=== PATIENT | female | born 1945 | race African-American/Black ===

== ENCOUNTER 2018-04-29 14:36 | Emergency (ER) | payer OTHER ==
[2018-04-29 17:13] LABS: Absolute Lymphocytes (CBC) 1.3 K/uL (0.7-4.9); Absolute Monocytes 0.5 K/uL (0.1-1.3); Absolute Neutrophil 3.9 K/uL (1.8-8.0); Basophils % 0.4 % (0-1.3); Hematocrit 32.4 % (36.0-45.0); Lymphocytes % 23.1 % (15.3-44.8); MCH 31.1 pg (27.0-35.0); MCV 92.4 fL (80-100); MPV 9.5 fL (7.6-11.3); Monocytes % 7.9 % (3.3-12.3); RBC Red Blood Cell Count 3.51 M/uL (3.86-4.86)
[2018-04-29 17:33] LABS: Albumin 3.8 g/dL (3.4-5.0); Bilirubin Direct 0.1 mg/dL (0-0.2); Bilirubin Total 0.3 mg/dL (0.2-1.0); Potassium 4.4 mmol/L (3.5-5.1); Protein, Total 8.4 g/dL (6.4-8.2)
--- NOTE | 2018-04-29 17:50 | EKG ---
Test Date: 2018-04-29 Test Time: 15:22:32 Systems Spec: BEATRICE MEASUREMENT RESULTS: Intervals: Rate: 61 CO: 192 QRSD: 78 QT: 432 QTc: 434 [place]: P: 63 CO: 192 QRS: -5 T: 42 INTERPRETIVE STATEMENTS: Normal sinus rhythm Normal ECG Compared to ECG 10/12/2015 14:25:41 Left ventricular hypertrophy no longer present Electronically Signed On 04-29-18 17:50:22 CDT by Cuong De Guzman
--- NOTE | 2018-04-29 18:21 | EDPHYS ---
Physician Documentation [facility] Name: Kevin Chou Age: 73 yrs Sex: Female : 1945 Arrival Date: 04/29/2018 Time: 14:40 Bed 5 Private MD: Pierre Dunbar; Cristhian Barlow ED Physician Brett Lennon HPI: 04/29 15:40 This 73 yrs old Black Female presents to ER via EMS with complaints of Near Syncope, jr8 Diarrhea. 15:40 The patient has experienced syncope. Onset: The symptoms/episode began/occurred jr8 acutely, today. Duration: This was a single episode. Context: the episode(s) was witnessed, by a bystander, occurred at a store, occurred while the patient was standing. Associated injury: The patient did not suffer any apparent associated injury. Associated signs and symptoms: Pertinent positives: diarrhea. Current symptoms: Currently, the patient is not experiencing any symptoms, the patient feels back to baseline, no decreased level of consciousness, no confusion, no dysphasia, no headache, no paralysis, no visual changes. The patient has not experienced similar symptoms in the past. The patient has not recently seen a physician. Patient stated that she had finished dialysis and went to [place]. Stated that after walking around started to feel light headed and that she was going to have diarrhea. Passed out at that time. Was caught before hitting the ground. Denied chest pain, shortness of breath, vertigo, or palpitation feeling . Historical: - Allergies: 14:46 Percodan; sg - Home Meds: 14:46 amlodipine 10 mg tab 1 tab once daily [Active]; atenolol 50 mg Oral tab 1 tab once sg daily [Active]; lisinopril 40 mg Oral tab 1 tab once daily [Active]; trijenta 5mg 1 tab daily [Active]; Uloric 40 mg Oral tab 1 tab once daily [Active]; - PMHx: 14:46 Hypertension; kidney disease; sg - PSHx: 14:46 Lumpectomy; Hysterectomy; sg - Immunization history:: Adult Immunizations up to date. - Social history:: Smoking status: Patient/guardian denies using tobacco. - Ebola Screening: : Patient negative for fever greater than or equal to 101.5 degrees Fahrenheit, and additional compatible Ebola Virus Disease symptoms Patient denies exposure to infectious person Patient denies travel to an Ebola-affected area in the 21 days before illness onset No symptoms or risks identified at this time. ROS: 15:40 Eyes: Negative for injury, pain, redness, and discharge, ENT: Negative for injury, jr8 pain, and discharge, Neck: Negative for injury, pain, and swelling, Cardiovascular: Negative for chest pain, palpitations, and edema, Respiratory: Negative for shortness of breath, cough, wheezing, and pleuritic chest pain, Abdomen/GI: Negative for abdominal pain, nausea, vomiting, and constipation. Positive for diarrhea Back: Negative for injury and pain, MS/Extremity: Negative for injury and deformity, Skin: Negative for injury, rash, and discoloration. 15:40 Neuro: Positive for syncope, Negative for altered mental status, dizziness, gait disturbance, headache, hearing loss, loss of consciousness, numbness, seizure activity, speech changes, near syncope, tingling, tinnitus, tremor, visual changes, weakness. Exam: 15:40 Eyes: Pupils equal round and reactive to light, extra-ocular motions intact. Lids and jr8 lashes normal. Conjunctiva and sclera are non-icteric and not injected. Cornea within normal limits. Periorbital areas with no swelling, redness, or edema. ENT: Nares patent. No nasal discharge, no septal abnormalities noted. Tympanic membranes are normal and external auditory canals are clear. Oropharynx with no redness, swelling, or masses, exudates, or evidence of obstruction, uvula midline. Mucous membranes moist. Neck: Trachea midline, no thyromegaly or masses palpated, and no cervical lymphadenopathy. Supple, full range of motion without nuchal rigidity, or vertebral point tenderness. No Meningismus. Cardiovascular: Regular rate and rhythm with a normal S1 and S2. No gallops, murmurs, or rubs. Normal PMI, no JVD. No pulse deficits. Respiratory: Lungs have equal breath sounds bilaterally, clear to auscultation and percussion. No rales, rhonchi or wheezes noted. No increased work of breathing, no retractions or nasal flaring. Abdomen/GI: Soft, non-tender, with normal bowel sounds. No distension or tympany. No guarding or rebound. No evidence of tenderness throughout. Back: No spinal tenderness. No costovertebral tenderness. Full range of motion. Skin: Warm, dry with normal turgor. Normal color with no rashes, no lesions, and no evidence of cellulitis. MS/ Extremity: Pulses equal, no cyanosis. Neurovascular intact. Full, normal range of motion. Neuro: Awake and alert, GCS 15, oriented to person, place, time, and situation. Cranial nerves II-XII grossly intact. Motor strength 5/5 in all extremities. Sensory grossly intact. Cerebellar exam normal. Normal gait. Vital Signs: 14:44 BP 126 / 55; Pulse 64; Resp 17; Temp 97.7; Pulse Ox 98% on R/A; Pain 0/10; sg 15:10 BP 124 / 52 Sitting; Pulse 65; sg 15:17 BP 122 / 50 Standing; Pulse 68; sg 18:30 BP 126 / 52; Pulse 66 MON; Resp 17 S; Pulse Ox 98% on R/A; Pain 0/10; sg MDM: 15:06 Patient medically screened. 16:40 Data reviewed: vital signs, nurses notes, EKG. Data interpreted: Pulse oximetry: on room air is 98 %. Interpretation: normal. Counseling: I had a detailed discussion with the patient and/or guardian regarding: the historical points, exam findings, and any diagnostic results supporting the discharge/admit diagnosis, the need for outpatient follow up, a family practitioner, to return to the emergency department if symptoms worsen or persist or if there are any questions or concerns that arise at home. ED course: Delay in care because patient initially refused blood work. Talked her into letting us further assess her . 17:55 Data reviewed: lab test result(s). 04/29 15:07 Order name: Basic Metabolic Panel; Complete Time: 18:23 04/29 15:07 Order name: CBC with Diff; Complete Time: 17:22 04/29 15:07 Order name: LFT's; Complete Time: 18:23 04/29 15:07 Order name: Magnesium; Complete Time: 18:23 04/29 15:07 Order name: EKG; Complete Time: 15:09 04/29 15:07 Order name: Lipase; Complete Time: 18:23 04/29 15:07 Order name: Cardiac monitoring; Complete Time: 16:35 04/29 15:07 Order name: EKG - Nurse/Tech; Complete Time: 16:35 8 04/29 15:07 Order name: IV Saline Lock; Complete Time: 16:35 8 04/29 15:07 Order name: Labs collected and sent; Complete Time: 16:35 8 04/29 15:07 Order name: O2 Per Protocol; Complete Time: 16:36 8 04/29 15:07 Order name: O2 Sat Monitoring; Complete Time: 16:36 8 04/29 15:07 Order name: Orthostatics; Complete Time: 16:35 jr8 Administered Medications: No medications were administered Disposition: 04/30 07:04 Co-signature as Attending Physician, Brett Lennon MD I agree with the assessment and addie plan of care. Disposition: 04/29/18 18:21 Discharged to Home. Impression: Syncope and collapse. - Condition is Stable. - Discharge Instructions: Syncope. - Medication Reconciliation Form, Thank You Letter, Antibiotic Education, Prescription Opioid Use form. - Follow up: Cristhian Barlow MD; When: 1 - 2 days; Reason: Recheck today's complaints, Continuance of care, Re-evaluation by your physician. - Problem is new. - Symptoms have improved. Signatures: Dispatcher [employer] EDMS Deborah AnnieTera Maldonado RN RN sg Anderson, Corey, MD MD cha Roszak, Josh, PA PA jr8 Corrections: (The following items were deleted from the chart) 04/29 18:39 18:21 04/29/2018 18:21 Discharged to Home. Impression: Syncope and collapse. Condition bd is Stable. Forms are Medication Reconciliation Form, Thank You Letter, Antibiotic Education, Prescription Opioid Use. Follow up: Cristhian Barlow; When: 1 - 2 days; Reason: Recheck today's complaints, Continuance of care, Re-evaluation by your physician. Problem is new. Symptoms have improved. jr8
--- NOTE | 2018-04-29 18:21 | ER ---
Nurse's Notes [facility] Name: Kevin Chou Age: 73 yrs Sex: Female : 1945 Arrival Date: 04/29/2018 Time: 14:40 Bed 5 Private MD: Pierre Dunbar; Cristhian Barlow Diagnosis: Syncope and collapse Presentation: 04/29 14:40 Presenting complaint: EMS states: pt was at the store when she felt as if she was going sg to have diarrhea and became weak and began to fall down, the store clerk cashier was able to help her down to the ground slowly. pt denies pain, hitting his head, denies LOC, reports diarrhea starting today with weakness. pt was able to complete dialysis today at 1300 over at [facility], reports not taking her BP medications as she was not able to eat yet today. Transition of care: patient was not received from another setting of care. Onset of symptoms was April 29, 2018. Risk Assessment: Do you want to hurt yourself or someone else? Patient reports no desire to harm self or others. Initial Sepsis Screen: Does the patient meet any 2 criteria? No. Patient's initial sepsis screen is negative. Does the patient have a suspected source of infection? No. Patient's initial sepsis screen is negative. Care prior to arrival: None. 14:40 Method Of Arrival: EMS: [facility] 14:40 Acuity: GRETA 3 sg Historical: - Allergies: 14:46 Percodan; sg - Home Meds: 14:46 amlodipine 10 mg tab 1 tab once daily [Active]; atenolol 50 mg Oral tab 1 tab once sg daily [Active]; lisinopril 40 mg Oral tab 1 tab once daily [Active]; trijenta 5mg 1 tab daily [Active]; Uloric 40 mg Oral tab 1 tab once daily [Active]; - PMHx: 14:46 Hypertension; kidney disease; sg - PSHx: 14:46 Lumpectomy; Hysterectomy; sg - Immunization history:: Adult Immunizations up to date. - Social history:: Smoking status: Patient/guardian denies using tobacco. - Ebola Screening: : Patient negative for fever greater than or equal to 101.5 degrees Fahrenheit, and additional compatible Ebola Virus Disease symptoms Patient denies exposure to infectious person Patient denies travel to an Ebola-affected area in the 21 days before illness onset No symptoms or risks identified at this time. Screenin:47 Abuse screen: Denies threats or abuse. Denies injuries from another. Nutritional sg screening: No deficits noted. Tuberculosis screening: No symptoms or risk factors identified. Never had TB. Fall Risk None identified. Assessment: 14:47 General: Appears in no apparent distress. comfortable, well groomed, well developed, sg well nourished, Behavior is calm, cooperative, appropriate for age. Pain: Denies pain. Neuro: Level of Consciousness is awake, alert, obeys commands, Oriented to person, place, time, Laundry Aid are equal bilaterally Moves all extremities. Full function Gait is steady, Speech is normal, Facial symmetry appears normal, Pupils are PERRLA. Cardiovascular: Heart tones S1 S2 present Patient's skin is warm and dry. Chest pain is denied. Respiratory: Airway is patent Respiratory effort is even, unlabored, Respiratory pattern is regular, symmetrical, Breath sounds are clear. GI: No signs and/or symptoms were reported involving the gastrointestinal system. : No signs and/or symptoms were reported regarding the genitourinary system. EENT: No signs and/or symptoms were reported regarding the EENT system. Derm: Skin is intact, is healthy with good turgor, Skin is dry, Skin is normal, Skin temperature is warm. Musculoskeletal: No signs and/or symptoms reported regarding the musculoskeletal system. 15:50 Reassessment: pt refusing IV blood work at this time. sg 16:14 Reassessment: Patient appears in no apparent distress at this time. pt refusing IV sg blood draw at this time. Vital Signs: 14:44 BP 126 / 55; Pulse 64; Resp 17; Temp 97.7; Pulse Ox 98% on R/A; Pain 0/10; sg 15:10 BP 124 / 52 Sitting; Pulse 65; sg 15:17 BP 122 / 50 Standing; Pulse 68; sg 18:30 BP 126 / 52; Pulse 66 MON; Resp 17 S; Pulse Ox 98% on R/A; Pain 0/10; sg ED Course: 14:40 Patient arrived in ED. iw 14:43 Triage completed. sg 14:43 Arm band placed on. sg 14:44 Pierre Dunbar DO is Private Physician. sg 14:44 Cristhian Barolw MD is Private Physician. sg 14:47 No provider procedures requiring assistance completed. sg 14:50 Patient has correct armband on for positive identification. Bed in low position. Call sg light in reach. Pulse ox on. NIBP on. 15:06 Umair Bateman PA is PHCP. jr8 15:06 Brett Lennon MD is Attending Physician. jr8 15:06 Brett Lennon MD is Attending Physician. jr8 15:26 EKG done, by orthodontic technician. reviewed by Umair PERALES. 3 16:34 Tera Medina, RN is Primary Nurse. sg 18:21 Cristhian Barlow MD is Referral Physician. jr8 18:30 IV discontinued, intact, bleeding controlled, No redness/swelling at site. Pressure sg dressing applied. Administered Medications: No medications were administered Outcome: 18:21 Discharge ordered by MD. 8 18:30 Discharged to home ambulatory, with friend. sg 18:30 Condition: good 18:30 Discharge instructions given to patient, family, Instructed on discharge instructions, follow up and referral plans. medication usage, safety practices, Demonstrated understanding of instructions, follow-up care. 18:39 Patient left the ED. bd Signatures: Annie Cabrera Steven, ANYA RN Jennifer Niño RN RN Umair Bateman PA PA [facility]ilene [place] 3
== END 2018-04-29 18:39 | disposition home or self-care (01) ==
LOC: ER 14:36
DX: R55 Syncope and collapse (principal); N28.9 Disorder of kidney and ureter, unspecified; I10 Essential (primary) hypertension; Z88.5 Allergy status to narcotic agent; Z99.2 Dependence on renal dialysis
CPT/HCPCS: 36415; 80048; 80076; 83690; 83735; 85025; 93005; 99283

== ENCOUNTER 2019-12-13 06:30 | Observation (INO) | payer OTHER ==
[2019-12-13 06:59] LABS: Absolute Lymphocytes (CBC) 1.8 K/uL (0.7-4.9); Basophils % 0.8 % (0-1.3); Hematocrit 37.5 % (36.0-45.0); Lymphocytes % 23.9 % (15.3-44.8); MPV 9.3 fL (7.6-11.3); RBC Red Blood Cell Count 3.98 M/uL (3.86-4.86)
[2019-12-13 07:04] LABS: Protime INR 0.92
[2019-12-13 07:35] LABS: ALT/SGPT 29 U/L (12-78); AST/SGOT 27 U/L (15-37); Albumin 3.3 g/dL (3.4-5.0); Alkaline Phosphatase 64 U/L (45-117); BUN Blood Urea Nitrogen 80 mg/dL (7-18); Bicarbonate 23 mmol/L (21-32); Bilirubin Direct 0.1 mg/dL (0-0.2); Bilirubin Total 0.3 mg/dL (0.2-1.0); Glucose Level 148 mg/dL (74-106); Magnesium 2.2 mg/dL (1.8-2.4); NT PRO-BNP 11899 pg/mL (<125); Potassium 5.1 mmol/L (3.5-5.1); Protein, Total 7.9 g/dL (6.4-8.2); Sodium Level 141 mmol/L (136-145); Troponin (Emerg Dept Use Only) < 0.02 ng/mL (0.0-0.045)
--- NOTE | 2019-12-13 08:11 | ER ---
Nurse's Notes [facility] Name: Kevin Chou Age: 74 yrs Sex: Female : 1945 Arrival Date: 12/13/2019 Time: 06:31 Bed 5 Private MD: Diagnosis: Fluid overload, unspecified;Atelectasis;Hypoxemia Presentation: 12/12 06:41 Chief complaint: Patient states: i am scheduled to do my dialysis today but i cant do mg2 it because im short of breath. i am also coughing but no fever. Coronavirus screen: Patient reports a cough. Patient reports shortness of breath or difficulty breathing. Patient denies measured and/or subjective temperature greater than 100.4F prior to today's visit. Patient denies travel on a cruise ship or to a country the [facility] currently lists as an affected area. Patient denies contact with known and/or suspected case of COVID-19. Ebola Screen: No symptoms or risks identified at this time. Initial Sepsis Screen: Does the patient meet any 2 criteria?. Risk Assessment: Do you want to hurt yourself or someone else? Patient reports no desire to harm self or others. Onset of symptoms was December 13, 2019. 06:41 Method Of Arrival: Wheelchair mg2 06:41 Acuity: GRETA 2 mg2 07:03 Initial Sepsis Screen: Does the patient have a suspected source of infection? No. mg2 Patient's initial sepsis screen is negative. Triage Assessment: 07:11 General: Appears comfortable. Respiratory: Onset: The symptoms/episode began/occurred mg2 gradually, the patient has mild shortness of breath. Historical: - Allergies: 06:43 Percodan; mg2 - PMHx: 06:43 Hypertension; kidney disease; mg2 - PSHx: 06:43 Hysterectomy; Lumpectomy; kidney biopsy; mg2 - Immunization history:: Flu vaccine is not up to date. - Social history:: Smoking status: Patient denies any tobacco usage or history of. Patient/guardian denies using alcohol, street drugs, IV drugs. Screenin:53 Abuse screen: Denies threats or abuse. Denies injuries from another. Nutritional mg2 screening: No deficits noted. Tuberculosis screening: No symptoms or risk factors identified. Fall Risk IV access (20 points). Assessment: 07:01 General: Appears in no apparent distress. comfortable, Behavior is calm, cooperative. mg2 Pain: Denies pain. Neuro: Level of Consciousness is awake, alert, obeys commands, Oriented to person, place, time, situation. Cardiovascular: Capillary refill < 3 seconds Patient's skin is warm and dry. Rhythm is. Respiratory: Reports shortness of breath at rest cough that is Airway is patent Respiratory effort is even, unlabored, Respiratory pattern is regular, symmetrical, Breath sounds with crackles bilaterally. in right upper lobe and left upper lobe. GI: No signs and/or symptoms were reported involving the gastrointestinal system. : No signs and/or symptoms were reported regarding the genitourinary system. EENT: No signs and/or symptoms were reported regarding the EENT system. Derm: Skin is intact, is healthy with good turgor, Skin is pink, warm \T\ dry. normal. Musculoskeletal: Circulation, motion, and sensation intact. Capillary refill < 3 seconds. 08:34 Reassessment: Patient appears in no apparent distress at this time. Patient and/or ph family updated on plan of care and expected duration. Pain level reassessed. Patient is alert, oriented x 3, equal unlabored respirations, skin warm/dry/pink. Awaiting room assignment, VSS. Vital Signs: 06:41 BP 170 / 90; Pulse 98; Resp 25; Temp 97.8; Pulse Ox 85% on R/A; Weight 58.97 kg; Height mg2 4 ft. 11 in. (149.86 cm); 08:34 BP 169 / 83; Pulse 86; Resp 18; Pulse Ox 100% on 2 lpm NC; ph 09:40 BP 159 / 72; Pulse 84; Resp 16; Temp 97.4; Pulse Ox 98% on 2 lpm NC; ph 06:41 Body Mass Index 26.26 (58.97 kg, 149.86 cm) mg2 ED Course: 06:31 Patient arrived in ED. ds1 06:40 [facility]C [facility] snw 06:40 Shawn Rubio MD is Attending Physician. snw 06:40 Cameron Gonzalez RN is Primary Nurse. mg2 06:43 Triage completed. mg2 06:43 Arm band placed on. mg2 06:53 No provider procedures requiring assistance completed. Inserted saline lock: 20 gauge mg2 in right wrist, using aseptic technique. Blood collected. 07:02 Patient has correct armband on for positive identification. Door closed. Warm blanket mg2 given. 07:54 XRAY Chest (1 view) In Process Unspecified. EDMS 08:10 Ariel Morfin DO is Hospitalizing Provider. snw 10:47 Patient admitted, IV remains in place. Administered Medications: No medications were administered Outcome: 08:11 Decision to Hospitalize by Provider. snw 10:05 Admitted to Med/surg accompanied by tech, via stretcher, room 416, with oxygen. ph 10:05 Condition: stable 10:05 Instructed on the need for admit. 10:48 Patient left the ED. Signatures: Dispatcher [employer] EDHI Carrie Mc, NON DESTRUCTIVE TESTER-C NON DESTRUCTIVE TESTER-CsnRachel Morgan ds1 Salome Rosas, RN RN ph Cameron Gonzalez RN RN [facility] Marjorie Tovar RN RN Corrections: (The following items were deleted from the chart) 08:35 08:34 BP 169 / 83; Pulse 86bpm; Resp 18bpm; Pulse Ox 100% RA; ph ph
--- NOTE | 2019-12-13 08:11 | EDPHYS ---
Physician Documentation [facility] Name: Kevin Chou Age: 74 yrs Sex: Female : 1945 Arrival Date: 12/13/2019 Time: 06:31 Bed 5 Private MD: ED Physician Shawn Rubio HPI: 12/12 06:46 This 74 yrs old Black Female presents to ER via Wheelchair with complaints of Shortness snw Of Breath. 06:46 The patient has shortness of breath at rest. Onset: The symptoms/episode began/occurred snw suddenly. Duration: The symptoms are continuous, and are unchanged since they started. The patient's shortness of breath has no apparent modifying factors. Associated signs and symptoms: The patient has no apparent associated signs or symptoms. Severity of symptoms: At their worst the symptoms were moderate severe in the emergency department the symptoms improved markedly with O2. The patient has experienced a previous episode. It is unknown whether or not the patient has recently seen a physician. 06:47 Pt went for dialysis this am and they sent her to ED for c/o SOB. snw Historical: - Allergies: 06:43 Percodan; mg2 - PMHx: 06:43 Hypertension; kidney disease; mg2 - PSHx: 06:43 Hysterectomy; Lumpectomy; kidney biopsy; mg2 - Immunization history:: Flu vaccine is not up to date. - Social history:: Smoking status: Patient denies any tobacco usage or history of. Patient/guardian denies using alcohol, street drugs, IV drugs. ROS: 06:45 Constitutional: Negative for fever, chills, and weight loss, Eyes: Negative for injury, snw pain, redness, and discharge, ENT: Negative for injury, pain, and discharge, Neck: Negative for injury, pain, and swelling, Cardiovascular: Negative for chest pain, palpitations, and edema. 06:45 Abdomen/GI: Negative for abdominal pain, nausea, vomiting, diarrhea, and constipation, Back: Negative for injury and pain, : Negative for injury, bleeding, discharge, and swelling, MS/Extremity: Negative for injury and deformity, Skin: Negative for injury, rash, and discoloration, Neuro: Negative for headache, weakness, numbness, tingling, and seizure, Psych: Negative for depression, anxiety, suicide ideation, homicidal ideation, and hallucinations. 06:45 Respiratory: Positive for cough, shortness of breath, at rest. sneezing. Exam: 06:44 Head/Face: Normocephalic, atraumatic. Eyes: Pupils equal round and reactive to light, snw extra-ocular motions intact. Lids and lashes normal. Conjunctiva and sclera are non-icteric and not injected. Cornea within normal limits. Periorbital areas with no swelling, redness, or edema. ENT: Nares patent. No nasal discharge, no septal abnormalities noted. Tympanic membranes are normal and external auditory canals are clear. Oropharynx with no redness, swelling, or masses, exudates, or evidence of obstruction, uvula midline. Mucous membranes moist. Neck: Trachea midline, no thyromegaly or masses palpated, and no cervical lymphadenopathy. Supple, full range of motion without nuchal rigidity, or vertebral point tenderness. No Meningismus. Chest/axilla: Normal chest wall appearance and motion. Nontender with no deformity. No lesions are appreciated. Cardiovascular: Regular rate and rhythm with a normal S1 and S2. No gallops, murmurs, or rubs. Normal PMI, no JVD. No pulse deficits. 06:44 Abdomen/GI: Soft, non-tender, with normal bowel sounds. No distension or tympany. No guarding or rebound. No evidence of tenderness throughout. Back: No spinal tenderness. No costovertebral tenderness. Full range of motion. Skin: Warm, dry with normal turgor. Normal color with no rashes, no lesions, and no evidence of cellulitis. MS/ Extremity: Pulses equal, no cyanosis. Neurovascular intact. Full, normal range of motion. Neuro: Awake and alert, GCS 15, oriented to person, place, time, and situation. Cranial nerves II-XII grossly intact. Motor strength 5/5 in all extremities. Sensory grossly intact. Cerebellar exam normal. Normal gait. 06:44 Constitutional: The patient appears alert, awake, anxious. 06:44 Respiratory: mild respiratory distress is noted, Respirations: accessory muscle usage, shallow respirations, tachypnea, that is moderate, positioning for optimal ease of breathing, not quite tripod position. Vital Signs: 06:41 BP 170 / 90; Pulse 98; Resp 25; Temp 97.8; Pulse Ox 85% on R/A; Weight 58.97 kg; Height mg2 4 ft. 11 in. (149.86 cm); 08:34 BP 169 / 83; Pulse 86; Resp 18; Pulse Ox 100% on 2 lpm NC; ph 09:40 BP 159 / 72; Pulse 84; Resp 16; Temp 97.4; Pulse Ox 98% on 2 lpm NC; ph 06:41 Body Mass Index 26.26 (58.97 kg, 149.86 cm) mg2 MDM: 06:40 Patient medically screened. snw 08:08 Data reviewed: vital signs, nurses notes. Data interpreted: Pulse oximetry: on room air snw is 85 %. Interpretation: hypoxia. Plan: O2 by NC applied. Counseling: I had a detailed discussion with the patient and/or guardian regarding: the historical points, exam findings, and any diagnostic results supporting the discharge/admit diagnosis, the presence of at least one elevated blood pressure reading (>120/80) during this emergency department visit, lab results, radiology results, the need for further work-up and treatment in the hospital. Physician consultation: Ariel Morfin DO was called at 08:09, was contacted at 08:09, regarding admission, to the telemetry unit. 12/12 06:38 Order name: Basic Metabolic Panel; Complete Time: 07:37 12/12 06:38 Order name: CBC with Diff; Complete Time: 07:25 12/12 06:38 Order name: LFT's; Complete Time: 07:37 12/12 06:38 Order name: Magnesium; Complete Time: 07:37 12/12 06:38 Order name: NT PRO-BNP; Complete Time: 07:37 12/12 06:38 Order name: PT-INR; Complete Time: 07:25 12/12 06:38 Order name: Troponin (emerg Dept Use Only); Complete Time: 07:37 12/12 06:38 Order name: XRAY Chest (1 view); Complete Time: 09:02 12/12 06:38 Order name: EKG; Complete Time: 06:39 12/12 06:38 Order name: Cardiac monitoring; Complete Time: 06:52 12/12 06:38 Order name: EKG - Nurse/Tech; Complete Time: 06:53 12/12 07:52 Order name: COVID-19; Complete Time: 08:51 ph 12/12 07:52 Order name: Flu; Complete Time: 08:43 ph 12/12 10:07 Order name: Hemoglobin A1c; Complete Time: 10:11 EDMS 12/12 06:38 Order name: IV Saline Lock; Complete Time: 06:52 tw4 12/12 06:38 Order name: Labs collected and sent; Complete Time: 06:52 tw4 12/12 06:38 Order name: O2 Per Protocol; Complete Time: 06:52 tw4 12/12 06:38 Order name: O2 Sat Monitoring; Complete Time: 06:52 tw4 12/12 08:03 Order name: Droplet/Contact Precautions; Complete Time: 08:34 snw Administered Medications: No medications were administered Disposition: 12/13 10:01 Co-signature as Attending Physician, Shawn Rubio MD I agree with the assessment and 4 plan of care. Disposition: 12/13/19 08:11 Hospitalization ordered by Ariel Morfin for Observation. Preliminary diagnosis are Fluid overload, unspecified, Atelectasis, Hypoxemia. - Bed requested for Telemetry/MedSurg (Inpatient). - Status is Observation. ah - Condition is Stable. - Problem is an acute exacerbation. - Symptoms are unchanged. Signatures: Dispatcher [employer] [facility] Annie Cabrera Shelly, FLY FRAME TENDER-C FLY FRAME TENDER-Csnw Esau Kirk MD MD rn Wadley, Terrence, MD MD [facility] Cameron Gonzalez RN RN [facility] [place] [place] Marjorie Tovar RN RN Corrections: (The following items were deleted from the chart) 12/12 09:32 08:11 Hospitalization Ordered by Ariel Morfin DO for Observation. Preliminary bd diagnosis is Fluid overload, unspecified; Atelectasis; Hypoxemia. Bed requested for Telemetry/MedSurg (Inpatient). Status is Observation. Condition is Stable. Problem is an acute exacerbation. Symptoms are unchanged. snw 10:48 09:32 12/13/2019 08:11 Hospitalization Ordered by Ariel Morfin DO for Observation. Preliminary diagnosis is Fluid overload, unspecified; Atelectasis; Hypoxemia. Bed requested for Telemetry/MedSurg (Inpatient). Status is Observation. Condition is Stable. Problem is an acute exacerbation. Symptoms are unchanged. bd
--- NOTE | 2019-12-13 08:52 | RAD REPORT ---
EXAM DESCRIPTION: RAD - Chest Single View - 12/13/2019 7:54 am CLINICAL HISTORY: SOB, pending dialysis COMPARISON: Portable July 2017 TECHNIQUE: AP portable chest image was obtained 12/13/2019 7:54 am . FINDINGS: Lung volumes are reduced. Airspace opacification is present in the inferior right lobe mor e peripherally distributed. This is abutting the minor fissure. Additional airspace opacification pre sent in the right lung base. Peripheral airspace opacities are present in the mid and lower left lung field. No pulmonary vascular engorgement. Heart size is normal. Trachea is midline. Dialysis catheter has b een removed since prior imaging. No measurable pleural effusion and no pneumothorax. No acute bony ab normality seen. No acute aortic findings suspected. IMPRESSION: Bilateral peripheral airspace opacification. Pattern is a bilateral pneumonia pattern rather than simple volume overload. Pattern can be seen with COVID-19 pneumonia as well as other non COVID pneumonias.
[2019-12-13] MEDS ORDERED: ONDANSETRON 4 MG/2 ML VIAL IV PRN (09:14)
[2019-12-13] MEDS ORDERED: ACETAMINOPHEN 500 MG TAB PO PRN (09:14)
[2019-12-13] MEDS ORDERED: FUROSEMIDE 40 MG/4 ML VIAL IV ONE (09:14)
--- NOTE | 2019-12-13 09:42 | P.HP ---
Certification for Inpatient Patient admitted to: Observation With expected LOS: <2 Midnights Patient will require the following post-hospital care: None Practitioner: I am a practitioner with admitting privileges, knowledge of patient current condition, hospital course, and medical plan of care. Services: Services provided to patient in accordance with Admission requirements found in Title 42 Section 412.3 of the Code of Federal Regulations <Asif Trotter - Last Filed: 12/13/19 09:47> Patient History Date of Service: 12/13/19 Primary Care Provider: Dr. Barlow, Nephrology- Dr. Dunbar Reason for admission: Dyspnea, Volume overload, R/O COVID History of Present Illness: 74 year old female with history of ESRD, DMII, HTN, presented to the ED after going to her scheduled dialysis appointment and being sent to the ED as the staff was concerned that she was more SOB than normal for her. Patient was evaluated in the emergency department and informed the staff that she has been feeling SOB with ROYAL since last night that was worse this morning. Pt reports that this is new for her. Her chest x-ray showed a bilateral infiltrate pattern which the radiologist favored over volume overload. Patient was swabbed for COVID due to her presentation and clinical exam findings. It was also reported by ED staff that the patient was desatting on room air as low as the mid to high 80s. Patient was placed on 2L per NC and is tolerating this well with normal sats. When I saw the patient in the ED she was on 02 at 2L per NC, in no respiratory distress, able to speak in full sentences. Reports to me that she has been feeling more short of breath on exertion since last night and especially this morning. Patient appears stable on oxygen, does not report any fever, chills, or other signs of systemic illness. She has not missed any dialysis and is taking her medications as prescribed. Home medications list reviewed: Yes - Past Medical/Surgical History Diabetic: Yes -: hypertension -: diabetes -: gout -: hysterectomy -: lumpectomy -: cataract surgery Psychosocial/ Personal History: Patient lives at home and is . - Family History Family History: Reviewed- Non-Contributory - Social History Smoking Status: Never smoker Alcohol use: No CD- Drugs: No Caffeine use: Yes Place of Residence: Home <Asif Trotter - Last Filed: 12/13/19 09:47> Date of Service: 12/13/19 <Ariel Morfin - Last Filed: 12/13/19 15:53> Allergies aspirin [From Percodan] Adverse Reaction (Verified 04/22/16 09:44) Rash oxycodone [From Percodan] Adverse Reaction (Verified 04/22/16 09:44) Rash Home Medications: Amlodipine [Norvasc*] 10 mg PO DAILY #30 tab 08/11/17 Pantoprazole [Protonix Tab*] 40 mg PO DAILYAC #60 tab 08/11/17 Brimonidine Tartrate/Timolol [Combigan 0.2%-0.5% Eye Drops] 1 drop EACH EYE BID 12/13/19 Calcium Acetate [Phoslo*] 1 tab PO SEECOM 12/13/19 Doxazosin [Cardura*] 1 tab PO BID 12/13/19 Metoprolol Succinate [Toprol Xl] 1 tab PO DAILY 12/13/19 Review of Systems General: Unremarkable Eyes: Unremarkable ENT: Unremarkable Respiratory: Cough, Shortness of Breath, SOB with Excertion Cardiovascular: Unremarkable Gastrointestinal: Unremarkable Genitourinary: Unremarkable Musculoskeletal: Unremarkable Neurological: Unremarkable Lymphatics: Unremarkable <Asif Trotter - Last Filed: 12/13/19 09:47> Physical Examination - Physical Exam General: Alert, In no apparent distress, Oriented x3 HEENT: Atraumatic, Normocephalic Neck: Supple Respiratory: Crackles/rales Cardiovascular: No edema, Regular rate/rhythm Capillary refill: <2 Seconds Gastrointestinal: Normal bowel sounds, Soft and benign Musculoskeletal: No clubbing, No erythema, No tenderness Integumentary: No significant lesion, No tenderness/swelling Neurological: Normal speech, Normal strength at 5/5 x4 extr, Normal tone - Studies Laboratory Data (last 24 hrs) 12/13/19 06:50: PT 10.9, INR 0.92 12/13/19 06:50: WBC 7.6, Hgb 12.3, Hct 37.5, Plt Count 188 12/13/19 06:50: Sodium 141, Potassium 5.1, BUN 80 H, Creatinine 11.90 H*, Glucose 148 H, Magnesium 2.2, Total Bilirubin 0.3, AST 27, ALT 29, Alkaline Phosphatase 64 Microbiology Data (last 24 hrs): 12/13/19 07:50 Nasopharnyx Coronavirus COVID-19 PCR - Final 12/13/19 07:50 Nasopharnyx Influenza Type A Antigen Screen - Final 12/13/19 07:50 Nasopharnyx Influenza Type B Antigen Screen - Final <Asfi Trotter - Last Filed: 12/13/19 09:47> - Physical Exam Other Physical/Emotional Findings: Agree with examination and evaluation. - Studies Laboratory Data (last 24 hrs) 12/13/19 06:50: PT 10.9, INR 0.92 12/13/19 06:50: WBC 7.6, Hgb 12.3, Hct 37.5, Plt Count 188 12/13/19 06:50: Sodium 141, Potassium 5.1, BUN 80 H, Creatinine 11.90 H*, Glucose 148 H, Magnesium 2.2, Total Bilirubin 0.3, AST 27, ALT 29, Alkaline Phosphatase 64 Microbiology Data (last 24 hrs): 12/13/19 07:50 Nasopharnyx Coronavirus COVID-19 PCR - Final 12/13/19 07:50 Nasopharnyx Influenza Type A Antigen Screen - Final 12/13/19 07:50 Nasopharnyx Influenza Type B Antigen Screen - Final <Ariel Morfin - Last Filed: 12/13/19 15:53> Assessment and Plan - Plan Assessment Dyspnea Volume overload/bilateral infiltrate pattern- Hypertension- hospitalization. Diabetes mellitus type II Plan Volume overload/bilateral infiltrate pattern-patient was swabbed for oliva virus. If negative the patient will be admitted to the floor and nephrology will be consulted to arrange for the patient to receive dialysis. Will await results from blood and sputum cultures at this time a diagnosis of volume overload is favored clinically as the patient has no elevation in her white blood cell count denies fever or chills. Chest x-ray will be repeated in the morning after the patient receives dialysis to evaluate volume status and the bilateral infiltrate that were observed on the previous x-ray per radiology. End-stage renal disease. Anticipate patient will improve clinically in the next 24-48 hr at which time she can be discharged home. DVT prophylaxis with heparin subcu b.i.d. and will obtain echocardiogram to evaluate for CHF. End-stage renal disease-nephrology will be consulted. With the patient has been cleared for oliva virus we will arrange for dialysis. Hypertension-home medications will be obtained in verified. Will continue home medications and monitor blood pressure throughout the hospitalization. Diabetes mellitus type II- blood sugars were monitored throughout the hospitalization. Will obtain A1c in the morning and place patient on a mild sliding scale. Discharge Plan: Home Plan to discharge in: 48 Hours - Advance Directives Does patient have a Living Will: No Does patient have a Durable POA for Healthcare: No - Code Status/Comfort Care Code Status Assessed: Yes (Pt is full code) Time Spent Managing Pts Care (In Minutes): 55 <Asif Trotter - Last Filed: 12/13/19 09:47> - Plan Impression: Shortness of breath with hypoxia and noted pulmonary edema likely related to end-stage renal disease End-stage renal disease on hemodialysis Diabetes mellitus type 2 Hypertension Plan: Case discussed at length with nurse practitioner-Asif Trotter. Agree with assessment, evaluation and plan of care. Patient will require evaluation for COVID19. I doubt this. Shortness of breath likely related to pulmonary edema from volume overload. Will need to evaluate for underlying CHF likely diastolic in nature. Echocardiogram ordered. Continue 1500 cc per day fluid restriction. Case discussed at length with nephrology. Patient will receive dialysis after negative coated test. Continue home medications. Continue as above. <Ariel Morfin - Last Filed: 12/13/19 15:53>
[2019-12-13 10:47] VITALS: BMI 29.2
[2019-12-13] MEDS: AMLODIPINE 5 MG TAB PO SCH (11:09)
[2019-12-13] MEDS: INSULIN -REGULAR HUMAN 50 UNIT/0.5 ML ML SQ SCH ×3 (11:17→21:00)
[2019-12-13] MEDS: METOPROLOL TAR 25 MG TAB PO SCH (16:00)
--- NOTE | 2019-12-13 16:23 | EKG ---
Test Date: 2019-12-13 Test Time: 07:01:15 Jd Edwards Consultant: MODE MEASUREMENT RESULTS: Intervals: Rate: 88 MN: 194 QRSD: 62 QT: 372 QTc: 450 [place]: P: 61 MN: 194 QRS: -9 T: 38 INTERPRETIVE STATEMENTS: Normal sinus rhythm Normal ECG Compared to ECG 04/29/2018 15:22:32 No significant changes Electronically Signed On 12-13-19 16:22:11 CDT by Cuong De Guzman
[2019-12-13] MEDS ORDERED: NA CHLORIDE 0.9% 1,000 ML IV PRN (17:17)
[2019-12-13] MEDS ORDERED: MANNITOL 25% 12.5 GM/50 ML VIAL IV PRN (17:17)
--- NOTE | 2019-12-13 17:43 | P.CNS ---
Date of Consult: 12/13/19 Reason for Consult: ESRD Requesting Physician: Ariel Morfin Primary Care Provider: Dr. Barlow, Nephrology- Dr. Dunbar Chief Complaint: Dyspnea, Volume overload, R/O COVID History of Present Illness: 74 yo BF CKD presented to the ER with moderate, progressive dyspnea with associated cough that is worse with exertion. No modifying fx. No edema. +Hypoxia 74 year old female with history of ESRD, DMII, HTN, presented to the ED after going to her scheduled dialysis appointment and being sent to the ED as the staff was concerned that she was more SOB than normal for her. Patient was evaluated in the emergency department and informed the staff that she has been feeling SOB with ROYAL since last night that was worse this morning. Pt reports that this is new for her. Her chest x-ray showed a bilateral infiltrate pattern which the radiologist favored over volume overload. Patient was swabbed for COVID due to her presentation and clinical exam findings. It was also reported by ED staff that the patient was desatting on room air as low as the mid to high 80s. Patient was placed on 2L per NC and is tolerating this well with normal sats. 06:46 This 74 yrs old Black Female presents to ER via Wheelchair with complaints of Shortness snw Of Breath. 06:46 The patient has shortness of breath at rest. Onset: The symptoms/episode began/occurred snw suddenly. Duration: The symptoms are continuous, and are unchanged since they started. The patient's shortness of breath has no apparent modifying factors. Associated signs and symptoms: The patient has no apparent associated signs or symptoms. Severity of symptoms: At their worst the symptoms were moderate severe in the emergency department the symptoms improved markedly with O2. The patient has experienced a previous episode. It is unknown whether or not the patient has recently seen a physician. Allergies aspirin [From Percodan] Adverse Reaction (Verified 04/22/16 09:44) Rash oxycodone [From Percodan] Adverse Reaction (Verified 04/22/16 09:44) Rash Home medications list reviewed: Yes Home Medications: Amlodipine [Norvasc*] 10 mg PO DAILY #30 tab 08/11/17 Pantoprazole [Protonix Tab*] 40 mg PO DAILYAC #60 tab 08/11/17 Brimonidine Tartrate/Timolol [Combigan 0.2%-0.5% Eye Drops] 1 drop EACH EYE BID 12/13/19 Calcium Acetate [Phoslo*] 1 tab PO SEECOM 12/13/19 Doxazosin [Cardura*] 1 tab PO BID 12/13/19 Metoprolol Succinate [Toprol Xl] 1 tab PO DAILY 12/13/19 - Past Medical/Surgical History Diabetic: Yes -: hypertension -: diabetes -: gout -: dialysis -: hysterectomy -: lumpectomy -: cataract surgery Psychosocial/ Personal History: Patient lives at home and is . - Social History Alcohol use: No CD- Drugs: No Caffeine use: Yes Place of Residence: Home Review of Systems 10-point ROS is otherwise unremarkable Respiratory: Cough, SOB with Excertion Physical Examination Temp Pulse Resp BP Pulse Ox 98.6 F 84 18 154/73 H 96 12/13/19 15:49 12/13/19 16:00 12/13/19 15:49 12/13/19 16:00 12/13/19 15:49 General: Oriented x3, Cooperative HEENT: Normocephalic Neck: Supple Respiratory: Normal air movement, Crackles/rales Cardiovascular: No edema, Regular rate/rhythm Gastrointestinal: Soft and benign, Non-distended Musculoskeletal: No clubbing, No contractures Integumentary: No rashes, No cyanosis Neurological: Normal speech Laboratory Data (last 24 hrs) 12/13/19 06:50: PT 10.9, INR 0.92 12/13/19 06:50: WBC 7.6, Hgb 12.3, Hct 37.5, Plt Count 188 12/13/19 06:50: Sodium 141, Potassium 5.1, BUN 80 H, Creatinine 11.90 H*, Glucose 148 H, Magnesium 2.2, Total Bilirubin 0.3, AST 27, ALT 29, Alkaline Phosphatase 64 Imagings Data: EXAM DESCRIPTION: RAD - Chest Single View - 12/13/2019 7:54 am CLINICAL HISTORY: SOB, pending dialysis COMPARISON: Portable July 2017 TECHNIQUE: AP portable chest image was obtained 12/13/2019 7:54 am . FINDINGS: Lung volumes are reduced. Airspace opacification is present in the inferior right lobe more peripherally distributed. This is abutting the minor fissure. Additional airspace opacification present in the right lung base. Peripheral airspace opacities are present in the mid and lower left lung field. No pulmonary vascular engorgement. Heart size is normal. Trachea is midline. Dialysis catheter has been removed since prior imaging. No measurable pleural effusion and no pneumothorax. No acute bony abnormality seen. No acute aortic findings suspected. IMPRESSION: Bilateral peripheral airspace opacification. Pattern is a bilateral pneumonia pattern rather than simple volume overload. Pattern can be seen with COVID-19 pneumonia as well as other non COVID pneumonias. Conclusions/Impression: A/ ESRD on HD. Diastolic CHF, A/C. Hypoxia. HTN with CKD/ CHF. DM II with CKD. Primary gout. Anemia in CKD. CHRISTOPH/ Secondary HyperPTH. BL PNA? P/ Continue current POC and medications. Arrange for acute HD today. Restart home medications as indicated. Monitor for possible PNA. No NSAIDs. AM labs. Daily weight. Thank you kindly for the consultation.
[2019-12-13] MEDS ORDERED: ALBUMIN HUMAN 25% 50 ML IV SCH (18:00)
[2019-12-13] MEDS: HEPARIN 5000 UNIT/ML 1 ML VIAL SQ SCH (21:56)
[2019-12-14] MEDS: METOPROLOL TAR 25 MG TAB PO SCH ×2 (05:37→17:13)
[2019-12-14 06:07] LABS: Absolute Lymphocytes (CBC) 1.8 K/uL (0.7-4.9); Basophils % 0.8 % (0-1.3); Hematocrit 34.8 % (36.0-45.0); Lymphocytes % 23.8 % (15.3-44.8); MPV 8.9 fL (7.6-11.3); RBC Red Blood Cell Count 3.67 M/uL (3.86-4.86)
[2019-12-14 06:37] LABS: Magnesium 2.1 mg/dL (1.8-2.4); Phosphorus 4.4 mg/dL (2.5-4.9); Thyroid Stimulating Hormone 0.912 uIU/mL (0.360-3.740); Uric Acid 3.1 mg/dL (2.6-6.0)
--- NOTE | 2019-12-14 07:19 | RAD REPORT ---
EXAM DESCRIPTION: [place] Pa And Lat (2 Views)12/14/2019 6:49 am CLINICAL HISTORY: Shortness of breath COMPARISON: December 13, 2019 FINDINGS: Moderate improvement in left lung opacities. Mild to moderate improvement in right lung opacities Mild improvement in a right upper lobe consolidation Heart remains enlarged IMPRESSION: Given the rapid improvement in bilateral pulmonary opacities the patient may have pulmon naman edema superimposed over a right upper lobe pneumonia
[2019-12-14] MEDS: INSULIN -REGULAR HUMAN 50 UNIT/0.5 ML ML SQ SCH ×3 (07:30→16:30)
[2019-12-14] MEDS: AMLODIPINE 5 MG TAB PO SCH (09:21)
[2019-12-14] MEDS: HEPARIN 5000 UNIT/ML 1 ML VIAL SQ SCH (09:21)
[2019-12-14] MEDS ORDERED: LIDOCAINE/PRILOCAINE CREAM TOP SCH (12:00)
[2019-12-14 16:06] VITALS: BP 131/57; TEMP 97.7
--- NOTE | 2019-12-14 16:45 | P.DS ---
Admission Date: 12/13/19 Discharge Date: 12/14/19 Primary Care Provider: Dr. Barlow, Nephrology- Dr. Dunbar Disposition: ROUTINE DISCHARGE Discharge Condition: GOOD Reason for Admission: Dyspnea, Volume overload, R/O COVID Consultations: Nephrology-Dr. Dunbar Procedures: Medical problem list: Dyspnea secondary to volume overload likely underlying related acute on chronic diastolic CHF with end-stage renal disease End-stage renal disease on hemodialysis Hypertension Diabetes mellitus type II Brief History of Present Illness: 74-year-old female with history of end-stage renal disease, diabetes and hypertension. Patient presented with shortness of breath. Chest x-ray revealed pulmonary edema. Patient was admitted for further evaluation and treatment. Hospital Course: Patient presented with dyspnea secondary to volume overload likely related to acute on chronic diastolic CHF with end-stage renal disease on hemodialysis. During the course of her stay patient improved with diuresis and dialysis. Oxygen was weaned off. At discharge patient without significant shortness of breath. Chest x-ray shows improvement. Pro calcitonin negative. White count negative. Doubt infectious process. At discharge she will continue with a 1500 cc per day fluid restriction and low-salt diet. Patient will continue with Lasix 40 mg daily. At discharge she will continue with dialysis as directed. Recommend to monitor her weight daily. If her weight increases by more than 5 lb she is to contact nephrology for further recommendation. Patient with hypertension. This has remained stable. Patient continue with her medication. Patient with diabetes mellitus type 2. This has remained stable. Patient will continue with her medications. Vital Signs/Physical Exam: Temp Pulse Resp BP Pulse Ox 97.7 F 84 17 131/57 L 98 12/14/19 16:00 12/14/19 16:00 12/14/19 16:00 12/14/19 16:00 12/14/19 16:00 General: Alert, In no apparent distress, Oriented x3, Cooperative HEENT: Atraumatic Neck: Supple Respiratory: Clear to auscultation bilaterally Cardiovascular: Normal pulses, Regular rate/rhythm Gastrointestinal: Normal bowel sounds, No masses, No rebound, No guarding Musculoskeletal: No tenderness, No warmth Integumentary: No erythema, No warmth, No cyanosis Neurological: Normal speech, Normal strength at 5/5 x4 extr, Normal tone, Normal affect Other Physical/Emotional Findings: Agree with examination and evaluation. Laboratory Data at Discharge: WBC 7.4 K/uL (4.3-10.9) 12/14/19 05:22 Hgb 11.4 g/dL (12.0-15.0) L 12/14/19 05:22 Hct 34.8 % (36.0-45.0) L 12/14/19 05:22 Plt Count 182 K/uL (152-406) 12/14/19 05:22 PT 10.9 SECONDS (9.5-12.5) 12/13/19 06:50 INR 0.92 12/13/19 06:50 Sodium 139 mmol/L (136-145) 12/14/19 05:22 Potassium 4.0 mmol/L (3.5-5.1) 12/14/19 05:22 BUN 36 mg/dL (7-18) H D 12/14/19 05:22 Creatinine 7.49 mg/dL (0.55-1.3) H* D 12/14/19 05:22 Glucose 103 mg/dL (74-106) 12/14/19 05:22 Uric Acid 3.1 mg/dL (2.6-6.0) 12/14/19 05:22 Phosphorus 4.4 mg/dL (2.5-4.9) 12/14/19 05:22 Magnesium 2.1 mg/dL (1.8-2.4) 12/14/19 05:22 Total Bilirubin 0.3 mg/dL (0.2-1.0) 12/13/19 06:50 AST 27 U/L (15-37) 12/13/19 06:50 ALT 29 U/L (12-78) 12/13/19 06:50 Alkaline Phosphatase 64 U/L (45-117) 12/13/19 06:50 Home Medications: Amlodipine [Norvasc*] 10 mg PO DAILY #30 tab 08/11/17 Pantoprazole [Protonix Tab*] 40 mg PO DAILYAC #60 tab 08/11/17 Brimonidine Tartrate/Timolol [Combigan 0.2%-0.5% Eye Drops] 1 drop EACH EYE BID 12/13/19 Calcium Acetate [Phoslo*] 1 tab PO SEECOM 12/13/19 Doxazosin [Cardura*] 1 tab PO BID 12/13/19 Metoprolol Succinate [Toprol Xl] 1 tab PO DAILY 12/13/19 Furosemide [Lasix] 40 mg PO DAILY #30 tab 12/14/19 New Medications: Furosemide [Lasix] 40 mg PO DAILY #30 tab Patient Discharge Instructions: Patient presented with dyspnea secondary to volume overload likely related to acute on chronic diastolic CHF with end-stage renal disease on hemodialysis. During the course of her stay patient improved with diuresis and dialysis. Oxygen was weaned off. At discharge patient without significant shortness of breath. Chest x-ray shows improvement. Pro calcitonin negative. White count negative. Doubt infectious process. At discharge she will continue with a 1500 cc per day fluid restriction and low- salt diet. Patient will continue with Lasix 40 mg daily. At discharge she will continue with dialysis as directed. Recommend to monitor her weight daily. If her weight increases by more than 5 lb she is to contact nephrology for further recommendation. Patient with hypertension. This has remained stable. Patient continue with her medication. Patient with diabetes mellitus type 2. This has remained stable. Patient will continue with her medications. Diet: Renal Activity: Ad nathalie Time spent managing pt's care (in minutes): 55
[2019-12-14 16:47] VITALS: O2SAT 98
--- NOTE | 2019-12-14 21:03 | P.PN ---
Date of Service: 12/14/19 Vital Signs Temp Pulse Resp BP Pulse Ox 97.7 F 83 17 131/57 L 98 12/14/19 16:00 12/14/19 17:13 12/14/19 16:00 12/14/19 17:13 12/14/19 16:00 Microbiology Results 12/13/19 07:50 Nasopharnyx Coronavirus COVID-19 PCR - Final 12/13/19 07:50 Nasopharnyx Influenza Type A Antigen Screen - Final 12/13/19 07:50 Nasopharnyx Influenza Type B Antigen Screen - Final Assessment/ Plan: Nephrology Feeling better but still with ROYAL. CPS improved without CP or SOB. No acute events overnight. Vitals, medications, blood work and imaging reviewed in the chart. General: Oriented x3, Cooperative HEENT: Normocephalic Neck: Supple Respiratory: Normal air movement, Crackles/rales Cardiovascular: No edema, Regular rate/rhythm Gastrointestinal: Soft and benign, Non-distended Musculoskeletal: No clubbing, No contractures Integumentary: No rashes, No cyanosis Neurological: Normal speech Laboratory Data (last 24 hrs) 12/13/19 06:50: PT 10.9, INR 0.92 12/13/19 06:50: WBC 7.6, Hgb 12.3, Hct 37.5, Plt Count 188 12/13/19 06:50: Sodium 141, Potassium 5.1, BUN 80 H, Creatinine 11.90 H*, Glucose 148 H, Magnesium 2.2, Total Bilirubin 0.3, AST 27, ALT 29, Alkaline Phosphatase 64 Imagings Data: EXAM DESCRIPTION: RAD - Chest Single View - 12/13/2019 7:54 am CLINICAL HISTORY: SOB, pending dialysis COMPARISON: Portable July 2017 TECHNIQUE: AP portable chest image was obtained 12/13/2019 7:54 am . FINDINGS: Lung volumes are reduced. Airspace opacification is present in the inferior right lobe more peripherally distributed. This is abutting the minor fissure. Additional airspace opacification present in the right lung base. Peripheral airspace opacities are present in the mid and lower left lung field. No pulmonary vascular engorgement. Heart size is normal. Trachea is midline. Dialysis catheter has been removed since prior imaging. No measurable pleural effusion and no pneumothorax. No acute bony abnormality seen. No acute aortic findings suspected. IMPRESSION: Bilateral peripheral airspace opacification. Pattern is a bilateral pneumonia pattern rather than simple volume overload. Pattern can be seen with COVID-19 pneumonia as well as other non COVID pneumonias. Conclusions/Impression: A/ ESRD on HD. Diastolic CHF, A/C. Hypoxia. HTN with CKD/ CHF. DM II with CKD. Primary gout. Anemia in CKD. CHRISTOPH/ Secondary HyperPTH. BL PNA? P/ Continue current POC and medications. Arrange for acute HD again today due to persistent bl rales. No NSAIDs. AM labs. Daily weight. Case reviewed with Dr. Mofrin. Addendum: She was seen and examined again after dialysis with an improvement in her respiratory exam. Greater than 35min patient care.
--- NOTE | 2019-12-15 08:49 | ECHO ---
HEIGHT: 4 ft 11 in WEIGHT: 145 lb 0 oz DATE OF STUDY: 12/14/[address]: Asif Trotter NP 2-DIMENSIONAL: YES M.MODE: YES DOPPLER: YES COLOR FLOW: YES TDS: NO PORTABLE: NO DEFINITY: NO BUBBLE STUDY: NO DIAGNOSIS: SHORTNESS OF BREATH CARDIAC HISTORY: CATHERIZATION: NO SURGERY: NO PROSTHETIC VALVE: NO PACEMAKER: NO MEASUREMENTS (cm) DIASTOLIC (NORMALS) SYSTOLIC (NORMALS) IVSd 1.0 (0.6-1.2) LA Diam 3.4 (1.9-4.0) LVEF 61% LVIDd 3.6 (3.5-5.7) LVIDs 2.4 (2.0-3.5) %FS 32% LVPWd 1.1 (0.6-1.2) Ao Diam 3.1 (2.0-3.7) 2 DIMENSIONAL ASSESSMENT: RIGHT ATRIUM: NORMAL LEFT ATRIUM: NORMAL RIGHT VENTRICLE: NORMAL LEFT VENTRICLE: NORMAL TRICUSPID VALVE: NORMAL MITRAL VALVE: NORMAL PULMONIC VALVE: NORMAL AORTIC VALVE: SCLEROSIS PERICARDIAL EFFUSION: NONE AORTIC ROOT: NORMAL LEFT VENTRICULAR WALL MOTION: NORMAL. DOPPLER/COLOR FLOW: MILD TRICUSPID REGURGITATION. COMMENTS: NORMAL LEFT VENTRICULAR SIZE AND FUNCTION. NO WALL MOTION ABNORMALITY. MILD TRICUSPID REGURGITATION - NORMAL RIGHT VENTRICULAR SYSTOLIC PRESSURE. AORTIC SCLEROSIS WITH NO STENOSIS TECHNOLOGIST: MACY DURAN
== END 2019-12-14 18:40 | disposition home or self-care (01) ==
LOC: ER 06:30 → ERHOLD 09:12 → 4TH 10:17 → 2ND 18:26
PROVIDERS: ADMIT Family Medicine; ATTEND Family Medicine
DX: I13.2 Hypertensive heart and chronic kidney disease with heart failure and with stage 5 chronic kidney disease, or end stage renal disease (principal); I50.33 Acute on chronic diastolic (congestive) heart failure; N18.6 End stage renal disease; Z99.2 Dependence on renal dialysis; E11.22 Type 2 diabetes mellitus with diabetic chronic kidney disease; Z20.828 Contact with and (suspected) exposure to other viral communicable diseases; N25.81 Secondary hyperparathyroidism of renal origin; D63.1 Anemia in chronic kidney disease
CPT/HCPCS: 93005; 93306; 87040 ×2; 85025 ×2; 80048 ×2; 36415 ×2; 83735 ×2; 84100; 85610; 82947 ×6; 80076; 84550; 84443; 83036; 84484; 84145; 83880; 87804 ×2; 71045; 71046; 90935; 99285; U0002; J1940; J1644 ×5; G0257; G0378 ×3

== ENCOUNTER 2020-10-12 06:04 | Emergency (ER) | payer OTHER ==
--- NOTE | 2020-10-12 07:15 | ER ---
Nurse's Notes [facility] Name: Kevin Chou Age: 75 yrs Sex: Female : 1945 Arrival Date: 10/12/2020 Time: 06:05 Bed Waiting Private MD: Diagnosis: Presentation: 10/12 06:20 Chief complaint: Unable to have dialysis today due to issues with the water at the dialysis clinic so that's why I came here to the ER. Coronavirus screen: At this time, the client does not indicate any symptoms associated with coronavirus-19. Initial Sepsis Screen:. Risk Assessment: Do you want to hurt yourself or someone else? Patient reports no desire to harm self or others. Onset of symptoms was October 12, 2020. Care prior to arrival: None. Transition of care: patient was not received from another setting of care. 06:20 Acuity: GRETA 3 sg 06:20 Method Of Arrival: Ambulatory Historical: - Allergies: 06:20 Percodan; - PMHx: 06:20 Hypertension; kidney disease; - PSHx: 06:20 Hysterectomy; Lumpectomy; kidney biopsy; ED Course: 06:05 Patient arrived in ED. cl3 06:20 Arm band placed on. sg 06:21 Triage completed. sg 07:14 Patient's name was called from ER lobby. No response. Unable to locate patient. Will tl1 disposition as left without being seen by a provider. Administered Medications: No medications were administered Outcome: 07:14 Patient left the ED. tl1 Signatures: Tera Medina RN RN Alize Nayak RN RN tl1 Juan A Pratt cl3
== END 2020-10-12 07:14 | disposition left against medical advice (07) ==
LOC: ER 06:04
DX: Z53.21 Procedure and treatment not carried out due to patient leaving prior to being seen by health care provider (principal)
CPT/HCPCS: 99281

== ENCOUNTER 2021-05-16 10:56 | Emergency (ER) | payer OTHER ==
[2021-05-16 11:49] LABS: Absolute Lymphocytes (CBC) 1.2 K/uL (0.7-4.9); Basophils % 0.7 % (0-1.3); Hematocrit 26.7 % (36.0-45.0); Lymphocytes % 19.9 % (15.3-44.8); MPV 8.3 fL (7.6-11.3)
[2021-05-16 11:50] LABS: Protime INR 1.06
[2021-05-16 12:07] LABS: Albumin 3.4 g/dL (3.4-5.0); Bilirubin Direct 0.1 mg/dL (0-0.2); Bilirubin Total 0.4 mg/dL (0.2-1.0); Magnesium 1.7 mg/dL (1.8-2.4); Potassium 3.4 mmol/L (3.5-5.1); Protein, Total 8.1 g/dL (6.4-8.2); Troponin (Emerg Dept Use Only) 0.02 ng/mL (0.0-0.045)
--- NOTE | 2021-05-16 12:07 | RAD REPORT ---
EXAM DESCRIPTION: RAD - Chest Single View - 05/16/2021 11:49 am CLINICAL HISTORY: CONGESTION COMPARISON: Chest Pa And Lat (2 Views) dated 12/14/2019; Chest Single View dated 12/13/2019; Chest Sin gle View dated 08/06/2017; Chest Single View dated 08/04/2017; Stone Protocol dated 08/04/2017 FINDINGS: Lines: None. Lungs: Faint ill-defined right upper lobe opacities and re- demonstrated left mid lung airspace disea se again noted. Pleural: No significant pleural effusions or pneumothorax. Cardiac: Mild cardiomegaly. Bones: No acute fractures. Other: IMPRESSION: Mild bilateral airspace disease which could reflect pneumonia.
[2021-05-16] MEDS ORDERED: NA CHLORIDE 0.9% 1,000 ML ONE (12:13)
[2021-05-16] MEDS ORDERED: AZITHROMYCIN 250 MG TAB ONE (12:53)
[2021-05-16] MEDS ORDERED: CEFTRIAXONE/SWI 1gm 1 GM/10 ML SYR ONE (12:54)
[2021-05-16 13:03] LABS: Platelet Estimate ADEQ
[2021-05-16 13:04] LABS: Blood Morphology Comment NOT SEEN (NOT SEEN)
--- NOTE | 2021-05-16 14:39 | EDPHYS ---
Physician Documentation [facility] Name: Kevin Chou Age: 76 yrs Sex: Female : 1945 Arrival Date: 05/16/2021 Time: 10:57 Bed 28 Private MD: ED Physician Deana Leiva HPI: 05/16 11:42 This 76 yrs old Black Female presents to ER via Ambulatory with complaints of General ma2 Weakness. 11:42 Onset: The symptoms/episode began/occurred gradually, 1 day(s) ago. Severity of ma2 symptoms: At their worst the symptoms were mild in the emergency department the symptoms are unchanged. The patient has experienced similar episodes in the past. Patient was sent by her dialysis doctor, Dr. elizabeth for evaluation of generalized weakness. Patient completed dialysis session this morning. Historical: - Allergies: 11:08 Percodan; tw2 - Home Meds: 11:08 lisinopril 40 mg Oral tab 1 tab once daily [Active]; atenolol 50 mg Oral tab 1 tab once tw2 daily [Active]; amlodipine 10 mg tab 1 tab once daily [Active]; Uloric 40 mg Oral tab 1 tab once daily [Active]; - PMHx: 11:08 Hypertension; kidney disease; Diabetes mellitus; tw2 - Immunization history:: Client reports receiving the 1st dose of the Covid vaccine. - Social history:: Smoking status: Patient denies any tobacco usage or history of. - Family history:: not pertinent. - Hospitalizations: : No recent hospitalization is reported. ROS: 11:42 Constitutional: Negative for fever, chills, and weight loss. ma2 11:42 All other systems are negative. Exam: 11:42 Constitutional: This is a well developed, well nourished patient who is awake, alert, ma2 and in no acute distress. Head/Face: Normocephalic, atraumatic. Eyes: Pupils equal round and reactive to light, extra-ocular motions intact. Lids and lashes normal. Conjunctiva and sclera are non-icteric and not injected. Cornea within normal limits. Periorbital areas with no swelling, redness, or edema. ENT: Nares patent. No nasal discharge, no septal abnormalities noted. Tympanic membranes are normal and external auditory canals are clear. Oropharynx with no redness, swelling, or masses, exudates, or evidence of obstruction, uvula midline. Mucous membranes moist. Neck: Trachea midline, no thyromegaly or masses palpated, and no cervical lymphadenopathy. Supple, full range of motion without nuchal rigidity, or vertebral point tenderness. No Meningismus. Chest/axilla: Normal chest wall appearance and motion. Nontender with no deformity. No lesions are appreciated. Cardiovascular: Regular rate and rhythm with a normal S1 and S2. No gallops, murmurs, or rubs. Normal PMI, no JVD. No pulse deficits. Respiratory: Lungs have equal breath sounds bilaterally, clear to auscultation and percussion. No rales, rhonchi or wheezes noted. No increased work of breathing, no retractions or nasal flaring. Abdomen/GI: Soft, non-tender, with normal bowel sounds. No distension or tympany. No guarding or rebound. No evidence of tenderness throughout. Back: No spinal tenderness. No costovertebral tenderness. Full range of motion. Skin: Warm, dry with normal turgor. Normal color with no rashes, no lesions, and no evidence of cellulitis. MS/ Extremity: Pulses equal, no cyanosis. Neurovascular intact. Full, normal range of motion. Neuro: Awake and alert, GCS 15, oriented to person, place, time, and situation. Cranial nerves II-XII grossly intact. Motor strength 5/5 in all extremities. Sensory grossly intact. Cerebellar exam normal. Normal gait. Vital Signs: 11:06 BP 136 / 55; Pulse 91; Resp 16; Temp 99.3(TE); Pulse Ox 96% on R/A; Weight 58.97 kg tw2 (R); Height 4 ft. 11 in. (149.86 cm) (R); Pain 5/10; 11:39 BP 146 / 56; Pulse 84; Resp 18 S; Temp 100.8(TE); Pulse Ox 96% on R/A; kh1 11:06 Body Mass Index 26.26 (58.97 kg, 149.86 cm) tw2 MDM: 11:13 Patient medically screened. ok2 11:42 Differential Diagnosis Hypokalemia, hyperkalemia, dehydration, electrolyte abnormality,.ma2 12:47 Data reviewed: vital signs, nurses notes. Counseling: I had a detailed discussion with ma2 the patient and/or guardian regarding: the historical points, exam findings, and any diagnostic results supporting the discharge/admit diagnosis, the presence of at least one elevated blood pressure reading (>120/80) during this emergency department visit, the need for outpatient follow up. Response to treatment: the patient's symptoms have markedly improved after treatment. 05/16 11:14 Order name: Basic Metabolic Panel; Complete Time: 12:15 [facility] 05/16 11:14 Order name: CBC with Diff; Complete Time: 13:14 [facility] 05/16 11:14 Order name: LFT's; Complete Time: 12:15 [facility] 05/16 11:14 Order name: Magnesium; Complete Time: 12:15 [facility] 05/16 11:14 Order name: NT PRO-BNP; Complete Time: 12:15 [facility] 05/16 11:14 Order name: PT-INR; Complete Time: 12:15 [facility] 05/16 11:14 Order name: Troponin (emerg Dept Use Only); Complete Time: 12:15 [facility] 05/16 11:14 Order name: XRAY Chest (1 view); Complete Time: 12:15 [facility] 05/16 11:53 Order name: Manual Differential; Complete Time: 13:14 [facility] 05/16 14:12 Order name: SARS-COV-2 RT PCR [facility] 05/16 11:14 Order name: EKG; Complete Time: 11:15 [facility] 05/16 11:14 Order name: Cardiac monitoring; Complete Time: : [facility] 05/16 11:14 Order name: EKG - Nurse/Tech; Complete Time: 12:08 [facility] 05/16 11:14 Order name: IV Saline Lock; Complete Time: : [facility] 05/16 11:14 Order name: Labs collected and sent; Complete Time: : [facility] 05/16 11:14 Order name: O2 Per Protocol; Complete Time: : [facility] 05/16 11:14 Order name: O2 Sat Monitoring; Complete Time: : [facility] 05/16 11:15 Order name: Urine Dipstick-Ancillary (obtain specimen) [facility] Administered Medications: 11:55 Drug: NS 0.9% 1000 ml Route: IV; Rate: 1 bolus; Site: right forearm; kh1 12:37 Drug: AZITHromycin 500 mg Route: PO; kh1 12:37 Drug: Rocephin (cefTRIAXone) 1 grams Route: IV; Rate: calculated rate; Site: right [facility] antecubital; Disposition Summary: 05/16/21 14:38 Discharge Ordered Location: Home ok2 Condition: Stable ok2 Diagnosis - Other viral pneumonia - COVID - 19 ma2 Followup: ma2 - With: Private Physician - When: Tomorrow - Reason: Continuance of care Discharge Instructions: - Discharge Summary Sheet ma2 - Community-Acquired Pneumonia, Adult, [id number] ma2 - 10 Things You Can Do to Manage Your COVID-19 Symptoms at Home - [facility] Forms: - Medication Reconciliation Form ma2 - Thank You Letter ma2 - Antibiotic Education ma2 - Prescription Opioid Use ma2 Prescriptions: - Zithromax Z-Guru 250 mg Oral Tablet - take 1 tablet by ORAL route as directed for 5 days Day 1 - take two (2) tablets ma2 one time. Day 2, 3, 4 , 5 take one (1) tablet once daily.; 6 tablet; Refills: 0, Product Selection Permitted Signatures: Dispatcher [employer] Anju Dunn RN RN tw2 Deana Leiva MD MD ma2 Leanna Tovar [facility] Corrections: (The following items were deleted from the chart) 12:29 11:15 CORONAVIRUS+DAVZ ordered. [facility] EDMS
--- NOTE | 2021-05-16 14:39 | ER ---
Nurse's Notes [facility] Name: Kevin Chou Age: 76 yrs Sex: Female : 1945 Arrival Date: 05/16/2021 Time: 10:57 Bed 28 Private MD: Diagnosis: Other viral pneumonia-COVID - 19 Presentation: 05/16 11:06 Chief complaint: Patient states: i am just weak. i think it started Friday. today has tw2 been bad. i do have a little bit of a cough from this weather change. i lost appetite. Coronavirus screen: At this time, the client does not indicate any symptoms associated with coronavirus-19. Ebola Screen: Patient denies travel to an Ebola-affected area in the 21 days before illness onset. Initial Sepsis Screen: Does the patient meet any 2 criteria? No. Patient's initial sepsis screen is negative. Does the patient have a suspected source of infection? No. Patient's initial sepsis screen is negative. Risk Assessment: Do you want to hurt yourself or someone else? Patient reports no desire to harm self or others. Onset of symptoms was May 16, 2021. 11:06 Method Of Arrival: Ambulatory tw2 11:06 Acuity: GRETA 3 tw2 Triage Assessment: 11:08 General: Appears in no apparent distress. ill, Behavior is calm, cooperative, tw2 appropriate for age, quiet. General: "chronic back pain". Pain: Complains of pain in back. Historical: - Allergies: 11:08 Percodan; tw2 - Home Meds: 11:08 lisinopril 40 mg Oral tab 1 tab once daily [Active]; atenolol 50 mg Oral tab 1 tab once tw2 daily [Active]; amlodipine 10 mg tab 1 tab once daily [Active]; Uloric 40 mg Oral tab 1 tab once daily [Active]; - PMHx: 11:08 Hypertension; kidney disease; Diabetes mellitus; tw2 - Immunization history:: Client reports receiving the 1st dose of the Covid vaccine. - Social history:: Smoking status: Patient denies any tobacco usage or history of. - Family history:: not pertinent. - Hospitalizations: : No recent hospitalization is reported. Screenin:23 Abuse screen: Denies threats or abuse. Nutritional screening: No deficits noted. kh1 Tuberculosis screening: No symptoms or risk factors identified. Fall Risk None identified. IV access (20 points). Gait- Normal/Bed Rest/Wheelchair (0 pts). Assessment: 11:24 Neuro: No deficits noted. Level of Consciousness is awake, alert, obeys commands, kh1 Oriented to person, place, time, situation, [employer] Machine Tender are equal bilaterally Moves all extremities. Full function Gait is steady, Speech is normal, Reports weakness. Cardiovascular: No deficits noted. Reports. Respiratory: Airway is patent Respiratory effort is even, unlabored, Respiratory pattern is regular, Sputum is. GI: No deficits noted. : No deficits noted. EENT: No deficits noted. Vital Signs: 11:06 BP 136 / 55; Pulse 91; Resp 16; Temp 99.3(TE); Pulse Ox 96% on R/A; Weight 58.97 kg tw2 (R); Height 4 ft. 11 in. (149.86 cm) (R); Pain 5/10; 11:39 BP 146 / 56; Pulse 84; Resp 18 S; Temp 100.8(TE); Pulse Ox 96% on R/A; kh1 11:06 Body Mass Index 26.26 (58.97 kg, 149.86 cm) tw2 ED Course: 10:57 Patient arrived in ED. am2 11:08 Triage completed. tw2 11:09 Arm band placed on. tw2 11:13 Deana Leiva MD is Attending Physician. ky2 11:14 Leanna Tovar is Primary Nurse. 1 11:23 teletypesetter monitor on. Pulse ox on. NIBP on. 1 11:23 No provider procedures requiring assistance completed. 1 11:24 Patient has correct armband on for positive identification. Bed in low position. Call [facility] light in reach. Side rails up X2. 11:43 XRAY Chest (1 view) Sent. kh1 11:43 Basic Metabolic Panel Sent. 1 11:43 CBC with Diff Sent. 1 11:43 LFT's Sent. kh1 11:43 Magnesium Sent. 1 11:43 NT PRO-BNP Sent. 1 11:43 PT-INR Sent. 1 11:43 Troponin (emerg Dept Use Only) Sent. 1 11:48 XRAY Chest (1 view) In Process Unspecified. EDMS Administered Medications: 11:55 Drug: NS 0.9% 1000 ml Route: IV; Rate: 1 bolus; Site: right forearm; [facility] 12:37 Drug: AZITHromycin 500 mg Route: PO; [facility] 12:37 Drug: Rocephin (cefTRIAXone) 1 grams Route: IV; Rate: calculated rate; Site: right [facility] antecubital; Outcome: 14:38 Discharge ordered by MD. cm 14:57 Patient left the ED. aj2 Signatures: Dispatcher [employer] Anju Dunn RN RN tw2 Mignon Soto am2 Deana Leiva MD MD ma2 Leanna Tovar [facility] Maura Matias Corrections: (The following items were deleted from the chart) 12:29 11:43 CORONAVIRUS+ drawn and sent. [facility] MIKETX
[2021-05-16 15:53] VITALS: O2SAT 96
[2021-05-16 15:54] VITALS: BP 146/56; TEMP 100.8
== END 2021-05-16 14:57 | disposition home or self-care (01) ==
LOC: ER 10:56
DX: U07.1 COVID-19 (principal); J12.82 Pneumonia due to coronavirus disease 2019; I10 Essential (primary) hypertension; E11.9 Type 2 diabetes mellitus without complications
CPT/HCPCS: 93005; 85025; 80048; 36415; 83735; 85610; 80076; 84484; 83880; 71045; 96374; 99284; U0003; J0696; J7030

== ENCOUNTER 2021-05-20 14:41 | Inpatient (IN) | payer OTHER ==
[2021-05-20 15:12] LABS: Absolute Lymphocytes (CBC) 0.5 K/uL (0.7-4.9); Basophils % 0.3 % (0-1.3); Hematocrit 26.5 % (36.0-45.0); Lymphocytes % 4.5 % (15.3-44.8); MPV 8.9 fL (7.6-11.3); RBC Red Blood Cell Count 2.75 M/uL (3.86-4.86)
[2021-05-20 15:15] LABS: Protime INR 1.12
[2021-05-20] MEDS ORDERED: NA CHLORIDE 0.9% 500 ML ONE (15:20)
[2021-05-20] MEDS ORDERED: VANCOMYCIN 1 GM/VIAL ONE (15:30)
[2021-05-20] MEDS ORDERED: METHYLPREDNISOLONE 125 MG INJ ONE (15:30)
[2021-05-20] MEDS ORDERED: WATER FOR INJ,STERILE 10 ML ONE (15:30)
[2021-05-20 15:31] LABS: ALT/SGPT 40 U/L (12-78); AST/SGOT 59 U/L (15-37); Albumin 2.8 g/dL (3.4-5.0); Alkaline Phosphatase 49 U/L (45-117); Amylase 158 U/L (25-115); BUN Blood Urea Nitrogen 50 mg/dL (7-18); Bicarbonate 21 mmol/L (21-32); Bilirubin Direct 0.2 mg/dL (0-0.2); Bilirubin Total 0.5 mg/dL (0.2-1.0); Creatine Phosphokinase 668 U/L (26-192); Glucose Level 144 mg/dL (74-106); Lipase 295 U/L (73-393); Potassium 3.9 mmol/L (3.5-5.1); Protein, Total 7.8 g/dL (6.4-8.2); Sodium Level 139 mmol/L (136-145)
[2021-05-20] MEDS ORDERED: NA CHLORIDE 0.9% 50 ML ONE (15:31)
[2021-05-20] MEDS ORDERED: CEFTRIAXONE 1000 MG/VIAL ONE (15:31)
[2021-05-20] MEDS ORDERED: NA CHLORIDE 0.9% 250 ML ONE (15:31)
[2021-05-20] MEDS ORDERED: ENOXAPARIN 80 MG/0.8 ML SQ ONE (15:31)
[2021-05-20 15:36] LABS: CKMB Creatine Kinase MB < 1.0 ng/mL (1.0-3.6)
[2021-05-20 15:37] LABS: Troponin (Emerg Dept Use Only) 1.58 ng/mL (0.0-0.045)
[2021-05-20 15:45] LABS: Arterial Blood Carboxyhemoglob 0.9 % (0-1.5); Blood Gas Oxyhemoglobin 87.9 % (94-97); Blood O2 Saturation 89.6 % (92-98.5)
[2021-05-20 15:54] LABS: Anisocytosis 1+; Blood Morphology Comment NOTED (NOT SEEN); Platelet Estimate ADEQ; White Blood Cell Scan OK (OK)
--- NOTE | 2021-05-20 16:30 | RAD REPORT ---
EXAM DESCRIPTION: RAD - Chest Single View - 05/20/2021 3:36 pm CLINICAL HISTORY: code sepsis COMPARISON: Single-view chest May 16 TECHNIQUE: AP portable chest image was obtained 05/20/2021 3:36 pm . FINDINGS: Mid and lower lung field airspace opacification. There is relative sparing of each apex. H eart size is mildly enlarged. No vascular engorgement confirmed. No cavitation or focal mass. No olvin urable pleural effusion and no pneumothorax. No acute bony abnormality seen. No acute aortic findings suspected. IMPRESSION: Bilateral airspace opacification most likely pneumonia. COVID-19 pneumonia would be a primary consideration in the current clinical environment. Non COVID vi ral pneumonia and bilateral bacterial pneumonia are possible as well.
--- NOTE | 2021-05-20 16:32 | ER ---
Nurse's Notes [facility] Name: Kevin Chou Age: 76 yrs Sex: Female : 1945 Arrival Date: 05/20/2021 Time: 14:46 Bed 4 Private MD: Diagnosis: Hypoxemia;Other viral pneumonia-COVID 19;Altered mental status, unspecified;End stage renal disease;Severe sepsis without septic shock;Subsequent non-ST elevation (NSTEMI) myocardial infarction Presentation: 05/20 14:47 Chief complaint: Patient states: Covid positive test Friday. + SOB, no appetite with ll1 N/V/D. + AMS. EMS states: 102.8 temp. 83% sat RA, BP 73/30, HR 130's. 20 G R FA, 600 ml NS bolus. Coronavirus screen: Client denies travel out of the [place] in the last 14 days. congestion, cough unrelated to allergies, difficulty breathing, fatigue, shortness of breath, Client presents with at least one sign or symptom that may indicate coronavirus-19. Standard/surgical mask placed on the client. Ebola Screen: Patient denies travel to an Ebola-affected area in the 21 days before illness onset. Initial Sepsis Screen: Does the patient meet any 2 criteria? RR > 20 per min. Systolic BP < 90 mmHg. Altered Mental Status. HR > 90 bpm. Yes Does the patient have a suspected source of infection? Yes: Productive cough/pneumonia. Risk Assessment: Do you want to hurt yourself or someone else? Patient reports no desire to harm self or others. Onset of symptoms was May 14, 2021. 14:47 Method Of Arrival: EMS: [facility] 1 14:47 Acuity: GRETA 2 ll1 Triage Assessment: 14:48 General: Appears ill, Behavior is cooperative, listless. Pain: Denies pain. Neuro: ll1 Level of Consciousness is obeys commands, confused, lethargic, Physics Technical Officer are weak bilaterally Speech is normal, Facial symmetry appears normal, Reports weakness. Cardiovascular: No deficits noted. Respiratory: Reports shortness of breath cough that is labored breathing Airway is patent Trachea midline Respiratory effort is labored, gasping, Respiratory pattern is symmetrical, tachypnea Breath sounds are diminished bilaterally. Onset: The symptoms/episode began/occurred at an unknown time. the patient has moderate shortness of breath. GI: Abdomen is round Bowel sounds present X 4 quads. Abd is soft and non tender X 4 quads. Reports diarrhea, intolerance of fluids, intolerance of food, nausea, vomiting. Historical: - Allergies: 14:47 Percodan; ll1 - PMHx: 14:47 diabetes mellitus; Hypertension; kidney disease; ll1 - Immunization history:: Adult Immunizations up to date. - Social history:: Smoking status: Patient denies any tobacco usage or history of. Patient/guardian denies using alcohol, street drugs, The patient lives with family. - Family history:: not pertinent. Screenin:29 Abuse screen: Denies threats or abuse. Nutritional screening: No deficits noted. ll1 Tuberculosis screening: No symptoms or risk factors identified. Fall Risk IV access (20 points). Gait- Weak (10 pts.). Mental Status- Overestimates/Forgets Limitations (15 pts.). Total Reece Fall Scale indicates High Risk Score (45 or more points). Fall prevention measures have been instituted. Side Rails Up X 2 Frequent Obs/Assessments Occuring As available patient and family educated on Fall Prevention Program and Strategies. Assessment: 15:30 Reassessment: Patient states symptoms have improved. General: Appears distressed, ll1 Behavior is calm, cooperative, appropriate for age. Pain: Denies pain. Cardiovascular: Heart tones S1 S2 Clubbing of nail beds is absent JVD is absent Patient's skin is warm and dry. Rhythm is sinus tachycardia. Vital Signs: 14:47 Pulse 125; Resp 30; Temp 100.2(O); Pulse Ox 87% on R/A; Pain 0/10; ll1 14:58 BP 151 / 73; ll1 15:22 BP 154 / 72; Pulse 114; Resp 22; Pulse Ox 100% on 10 lpm NC; ll1 16:02 BP 150 / 86; Pulse 113; Resp 22; Pulse Ox 100% on NC; es2 18:59 BP 143 / 69; Pulse 106; Resp 22; Pulse Ox 100% ; es2 21:03 BP 150 / 82; Pulse 94; Resp 22; Temp 98.9; Pulse Ox 99% on NC; Pain 1/10; wg 15:22 high flow O2 ll1 16:02 hi flow O2 es2 ED Course: 14:46 Patient arrived in ED. ll1 14:47 Arm band placed on Patient placed in an exam room, on a stretcher. ll1 14:47 Maintain EMS IV. Dressing intact. Good blood return noted. Site clean \\T\\ dry. Gauge \\T\\ ll 1 site: 20 G R FA. 14:50 Triage completed. ll1 14:54 Deana Leiva MD is Attending Physician. ma2 15:00 Inserted saline lock: 22 gauge in right antecubital area, using aseptic technique. ll1 Blood collected. 15:16 Padma Rosado RN is Primary Nurse. es2 15:30 Patient has correct armband on for positive identification. Bed in low position. Call ll1 light in reach. Side rails up X2. cardiac monitor on. Pulse ox on. NIBP on. 15:36 Chest Single View XRAY In Process Unspecified. EDMS 16:31 Ez Shore is Hospitalizing Provider. ma2 18:15 Luis Oswald PA is PHCP. jm 19:42 Lipid Profile Sent. wg 19:42 Lipid Profile Sent. wg 19:42 Ferritin Sent. wg 19:43 D-Dimer Sent. wg 19:43 Ferritin Sent. wg 19:43 D-Dimer Sent. wg 19:43 CBC with Automated Diff Sent. wg 19:43 C-Reactive Protein Sent. wg 19:43 CBC with Automated Diff Sent. wg 19:43 C-Reactive Protein Sent. wg 21:01 COVID-19 : Document "Date of Symptom Onset" if Symptomatic. Sent. wg Administered Medications: 14:56 Drug: NS 0.9% 1000 ml Route: IV; Rate: 1000 ml; Site: right forearm; ll1 15:49 Follow up: Response: No adverse reaction; IV Status: Completed infusion; IV Intake: ll1 1000ml 15:15 Drug: SOLU-Medrol (methylPrednisoLONE) 125 mg Route: IVP; Site: right forearm; ll1 15:49 Follow up: Response: No adverse reaction ll1 15:21 Drug: Rocephin (cefTRIAXone) 1 grams Route: IV; Rate: calculated rate; Site: right ll1 forearm; 15:49 Follow up: Response: No adverse reaction; IV Status: Completed infusion; IV Intake: [id number] 15:21 Drug: Lovenox (enoxaparin) 80 mg Route: Sub-Q; Site: right lower abdomen; ll1 15:49 Follow up: Response: No adverse reaction ll1 15:49 Drug: vancoMYCIN 1 grams Route: IVPB; Infused Over: 2 hrs; Site: right forearm; ll1 18:02 Follow up: Response: No adverse reaction; IV Status: Completed infusion; IV Intake: ll1 250ml 18:21 Drug: morphine 2 mg {Note: Rass 1.} Route: IVP; Site: right antecubital; es2 19:00 Follow up: Response: No adverse reaction es2 Intake: 15:49 IV: 1000ml; Total: 1000ml. ll1 15:49 IV: 50ml; Total: 1050ml. ll1 18:02 IV: 250ml; Total: 1300ml. ll1 Outcome: 16:31 Decision to Hospitalize by Provider. ma2 22:00 Admitted to ICU accompanied by nurse, via stretcher, room ICU bed 7, with oxygen, on wg monitor, with chart, Report called to ANYA Solomon 22:00 Condition: stable 22:01 Patient left the ED. wg Signatures: Dispatcher [employer] EDMS Luis Oswald PA PA jmm Alzahri, Mohammad, MD MD ma2 Oswald Pratt, RN RN ll1 Rober Cotton RN wg Padma Rosado RN RN es2
--- NOTE | 2021-05-20 16:32 | EDPHYS ---
Physician Documentation [facility] Name: Kevin Chou Age: 76 yrs Sex: Female : 1945 Arrival Date: 05/20/2021 Time: 14:46 Bed 4 Private MD: ED Physician Deana Leiva HPI: 05/20 14:57 This 76 yrs old Black Female presents to ER via EMS with complaints of Shortness Of ma2 Breath, Altered Mental Status. 14:57 The patient has shortness of breath at rest. ma2 14:58 The patient has shortness of breath with light activity. Onset: The symptoms/episode ma2 began/occurred gradually, 1 week(s) ago. Associated signs and symptoms: Pertinent positives: non-productive cough, Pertinent negatives: diaphoresis, fever, hemoptysis, loss of consciousness, numbness in extremities. Severity of symptoms: At their worst the symptoms were moderate in the emergency department the symptoms are unchanged. The patient has not experienced similar symptoms in the past. Historical: - Allergies: 14:47 Percodan; ll1 - PMHx: 14:47 diabetes mellitus; Hypertension; kidney disease; ll1 - Immunization history:: Adult Immunizations up to date. - Social history:: Smoking status: Patient denies any tobacco usage or history of. Patient/guardian denies using alcohol, street drugs, The patient lives with family. - Family history:: not pertinent. ROS: 14:58 Constitutional: Negative for fever, chills, and weight loss. ma2 14:58 All other systems are negative. Exam: 14:58 Constitutional: This is a well developed, well nourished patient who is awake, alert, ma2 and in no acute distress. Head/Face: Normocephalic, atraumatic. Eyes: Pupils equal round and reactive to light, extra-ocular motions intact. Lids and lashes normal. Conjunctiva and sclera are non-icteric and not injected. Cornea within normal limits. Periorbital areas with no swelling, redness, or edema. Neck: Trachea midline, no thyromegaly or masses palpated, and no cervical lymphadenopathy. Supple, full range of motion without nuchal rigidity, or vertebral point tenderness. No Meningismus. Chest/axilla: Normal chest wall appearance and motion. Nontender with no deformity. No lesions are appreciated. Cardiovascular: Regular rate and rhythm with a normal S1 and S2. No gallops, murmurs, or rubs. Normal PMI, no JVD. No pulse deficits. Abdomen/GI: Soft, non-tender, with normal bowel sounds. No distension or tympany. No guarding or rebound. No evidence of tenderness throughout. Back: No spinal tenderness. No costovertebral tenderness. Full range of motion. Skin: Warm, dry with normal turgor. Normal color with no rashes, no lesions, and no evidence of cellulitis. MS/ Extremity: Pulses equal, no cyanosis. Neurovascular intact. Full, normal range of motion. Neuro: Awake and alert, GCS 15, oriented to person, place, time, and situation. Cranial nerves II-XII grossly intact. Motor strength 5/5 in all extremities. Sensory grossly intact. Cerebellar exam normal. Normal gait. Psych: Awake, alert, with orientation to person, place and time. Behavior, mood, and affect are within normal limits. 14:58 Respiratory: moderate respiratory distress is noted, Respirations: labored breathing, Breath sounds: rales, that are moderate, are heard diffusely, Respiratory rate: 30 Vital Signs: 14:47 Pulse 125; Resp 30; Temp 100.2(O); Pulse Ox 87% on R/A; Pain 0/10; ll1 14:58 BP 151 / 73; ll1 15:22 BP 154 / 72; Pulse 114; Resp 22; Pulse Ox 100% on 10 lpm NC; ll1 16:02 BP 150 / 86; Pulse 113; Resp 22; Pulse Ox 100% on NC; es2 18:59 BP 143 / 69; Pulse 106; Resp 22; Pulse Ox 100% ; es2 21:03 BP 150 / 82; Pulse 94; Resp 22; Temp 98.9; Pulse Ox 99% on NC; Pain 1/10; wg 15:22 high flow O2 ll1 16:02 hi flow O2 es2 MDM: 14:55 Patient medically screened. ma2 16:29 Differential diagnosis: Anxiety Reaction Bronchitis CHF exacerbation, Chronic ma2 Obstructive Pulmonary Disease pneumonia, reactive airway disease. Antibiotic administration: Data reviewed: vital signs, nurses notes. Post IV fluid administration reassessment for Sepsis: Sepsis focused reassessment complete. Focused assessment performed: May 20, 2021 at 16:29 Heart: Regular rate/rhythm. Lungs: Crackles noted. Capillary refill examination performed. Capillary refill noted to be brisk. Peripheral pulse evaluation performed. Radial Skin examination performed. Skin examination noted to be unremarkable. Current patient vital signs reviewed: Yes. Passive leg raise examination performed. Neuro: Patient's neurological exam has improved from previous exam. Cardio: Cardiovascular exam improved from previous exam. Heart rate and blood pressure have improved. Respiratory: Respiratory exam improved from previous exam. Counseling: I had a detailed discussion with the patient and/or guardian regarding: the historical points, exam findings, and any diagnostic results supporting the discharge/admit diagnosis, the presence of at least one elevated blood pressure reading (>120/80) during this emergency department visit, the need for further work-up and treatment in the hospital. 05/20 14:55 Order name: Amylase, Serum; Complete Time: 16:05/20 14:55 Order name: Basic Metabolic Panel; Complete Time: 16:05/20 14:55 Order name: Blood Culture Adult (2) 05/20 14:55 Order name: CBC with Diff; Complete Time: 16:05/20 14:55 Order name: CPK; Complete Time: 16:27 05/20 14:55 Order name: Ckmb; Complete Time: 16:27 05/20 14:55 Order name: LFT's; Complete Time: 16:27 sv 05/20 14:55 Order name: Lactate; Complete Time: 16:27 05/20 14:55 Order name: Lipase; Complete Time: 16:27 05/20 14:55 Order name: Procalcitonin; Complete Time: 16:27 05/20 14:55 Order name: Protime (+inr); Complete Time: 16:27 05/20 14:55 Order name: Ptt, Activated; Complete Time: 16:27 05/20 14:55 Order name: Troponin (emerg Dept Use Only); Complete Time: 16:27 05/20 14:55 Order name: Urine Microscopic Only 05/20 14:58 Order name: ABG ma2 05/20 15:34 Order name: Glucose, Ancillary Testing; Complete Time: 16:27 EDMS 05/20 15:54 Order name: CBC Smear Scan; Complete Time: 16:27 EDMS 05/20 16:40 Order name: C-Reactive Protein [facility] 05/20 16:40 Order name: C-Reactive Protein [facility] 05/20 16:40 Order name: CBC with Automated Diff [facility] 05/20 16:40 Order name: CBC with Automated Diff [facility] 05/20 16:40 Order name: D-Dimer [facility] 05/20 16:40 Order name: D-Dimer [facility] 05/20 16:40 Order name: Ferritin [facility] 05/20 16:40 Order name: Ferritin [facility] 05/20 16:40 Order name: Lipid Profile [facility] 05/20 16:40 Order name: Lipid Profile [facility] 05/20 19:53 Order name: COVID-19 : Document "Date of Symptom Onset" if Symptomatic. em 05/20 21:45 Order name: SARS-COV-2 RT PCR [facility] 05/20 14:55 Order name: Chest Single View XRAY sv 05/20 14:55 Order name: Accucheck; Complete Time: 15:22 sv 05/20 14:55 Order name: Cardiac monitoring; Complete Time: 14:55 sv 05/20 14:55 Order name: EKG - Nurse/Tech; Complete Time: 14:55 sv 05/20 14:55 Order name: IV Saline Lock - Large Bore; Complete Time: 14:56 sv 05/20 14:55 Order name: Labs collected and sent; Complete Time: 14:57 sv 05/20 14:55 Order name: O2 Per Protocol; Complete Time: 14:55 sv 05/20 14:55 Order name: O2 Sat Monitoring; Complete Time: 14:55 sv 05/20 14:55 Order name: Urine Dipstick-Ancillary (obtain specimen) sv Administered Medications: 14:56 Drug: NS 0.9% 1000 ml Route: IV; Rate: 1000 ml; Site: right forearm; ll1 15:49 Follow up: Response: No adverse reaction; IV Status: Completed infusion; IV Intake: ll1 1000ml 15:15 Drug: SOLU-Medrol (methylPrednisoLONE) 125 mg Route: IVP; Site: right forearm; ll1 15:49 Follow up: Response: No adverse reaction ll1 15:21 Drug: Rocephin (cefTRIAXone) 1 grams Route: IV; Rate: calculated rate; Site: right ll1 forearm; 15:49 Follow up: Response: No adverse reaction; IV Status: Completed infusion; IV Intake: [id number] 15:21 Drug: Lovenox (enoxaparin) 80 mg Route: Sub-Q; Site: right lower abdomen; ll1 15:49 Follow up: Response: No adverse reaction ll1 15:49 Drug: vancoMYCIN 1 grams Route: IVPB; Infused Over: 2 hrs; Site: right forearm; ll1 18:02 Follow up: Response: No adverse reaction; IV Status: Completed infusion; IV Intake: ll1 250ml 18:21 Drug: morphine 2 mg {Note: Rass 1.} Route: IVP; Site: right antecubital; es2 19:00 Follow up: Response: No adverse reaction es2 Disposition: 15:01 Critical Care:. ma2 Disposition Summary: 05/20/21 16:31 Hospitalization Ordered Hospitalization Status: Inpatient Admission ma2 Provider: Ez Shore Condition: Stable ma2 Problem: new ma2 Symptoms: are unchanged ma2 Bed/Room Type: Standard [facility] Location: Intensive Care Unit(05/20/21 19:57) Room Assignment: 7-(05/20/21 19:57) Diagnosis - Hypoxemia ma2 - Other viral pneumonia - COVID 19 ma2 - Altered mental status, unspecified ma2 - End stage renal disease ma2 - Severe sepsis without septic shock ma2 - Subsequent non-ST elevation (NSTEMI) myocardial infarction ma2 Forms: - Medication Reconciliation Form ma2 - SBAR form ma2 Critical care time excluding procedures: 15:01 Critical care time: Bedside Care: 25 minutes, Consultation: 10 minutes, Family oh2 Intervention: 5 minutes. Total time: 40 minutes Signatures: Dispatcher [employer] EDMS Yolanda Riley RN ANYA Zaida Arellano RN RN Luis sOwald PA PA jmm Alzahri, Mohammad, MD MD ma2 Oswald Pratt RN RN ll1 Padma Rosado RN RN es2 Corrections: (The following items were deleted from the chart) 19:57 16:31 Telemetry/MedSurg (Inpatient) ma2 19:57 16:31 ma2 20:35 19:54 CORONAVIRUS ordered. EDNV EDNV
--- NOTE | 2021-05-20 16:33 | P.HP ---
Certification for Inpatient With expected LOS: >2 Midnights Patient will require the following post-hospital care: None Practitioner: I am a practitioner with admitting privileges, knowledge of patient current condition, hospital course, and medical plan of care. Services: Services provided to patient in accordance with Admission requirements found in Title 42 Section 412.3 of the Code of Federal Regulations Patient History Date of Service: 05/20/21 Reason for admission: hypoxia History of Present Illness: 76-year-old female with end-stage renal disease on dialysis, diabetes presents for evaluation of shortness of breath. She was seen in the ED 1 week ago for positive Covid test and pulmonary edema. She was treated with Lasix and was discharged after she was stabilized. She came back today with complaints of worsening of shortness of breath, oxygen saturation on room air in the 80%. She denies fever, nausea, vomiting, diarrhea, chest pain. White blood count 11, procalcitonin 23, ABG within normal limits, chest x-ray noted for Covid pneumonia, troponin 1.5. She is admitted for further evaluation. Allergies aspirin [From Percodan] Adverse Reaction (Verified 04/22/16 09:44) Rash oxycodone [From Percodan] Adverse Reaction (Verified 04/22/16 09:44) Rash Home Medications: Amlodipine [Norvasc*] 10 mg PO DAILY #30 tab 08/11/17 Pantoprazole [Protonix Tab*] 40 mg PO DAILYAC #60 tab 08/11/17 Brimonidine Tartrate/Timolol [Combigan 0.2%-0.5% Eye Drops] 1 drop EACH EYE BID 12/13/19 Calcium Acetate [Phoslo*] 1 tab PO SEECOM 12/13/19 Doxazosin [Cardura*] 1 tab PO BID 12/13/19 Metoprolol Succinate [Toprol Xl] 1 tab PO DAILY 12/13/19 Furosemide [Lasix*] 40 mg PO DAILY #30 tab 12/14/19 Furosemide [Lasix] 40 mg PO DAILY #30 tab 12/14/19 - Past Medical/Surgical History Diabetic: Yes -: hypertension -: diabetes -: gout -: dialysis -: hysterectomy -: lumpectomy -: cataract surgery Psychosocial/ Personal History: Patient lives at home and is . - Social History Alcohol use: No CD- Drugs: No Caffeine use: Yes Review of Systems General: Unremarkable Eyes: Unremarkable ENT: Unremarkable Respiratory: Shortness of Breath Cardiovascular: Unremarkable Gastrointestinal: Unremarkable Musculoskeletal: Unremarkable Integumentary: Unremarkable Neurological: Unremarkable Physical Examination - Physical Exam General: Alert, In no apparent distress, Oriented x3 HEENT: Atraumatic, Normocephalic, PERRLA, Mucous membr. moist/pink, Sclerae nonicteric Neck: Supple, 2+ carotid pulse no bruit, Without JVD or thyroid abnormality Respiratory: Diminished Cardiovascular: No edema, Normal pulses, Regular rate/rhythm Gastrointestinal: Normal bowel sounds, Soft and benign, Non-distended, No ascites, No tenderness, No masses, No rebound, No guarding Musculoskeletal: No clubbing, No swelling, No contractures, No erythema, No tenderness, No warmth Integumentary: No rashes, No breakdown, No significant lesion, No tenderness/swelling, No erythema, No warmth, No cyanosis Neurological: Normal gait, Normal speech, Normal strength at 5/5 x4 extr - Studies Laboratory Data (last 24 hrs) 05/20/21 14:45: PT 12.9 H, INR 1.12, APTT 30.2 05/20/21 14:45: WBC 11.10 H D, Hgb 8.9 L, Hct 26.5 L, Plt Count 185 05/20/21 14:45: Sodium 139, Potassium 3.9, BUN 50 H D, Creatinine 12.00 H* D, Glucose 144 H, Total Bilirubin 0.5, AST 59 H, ALT 40, Alkaline Phosphatase 49, Amylase 158 H, Lipase 295 Assessment and Plan - Plan Assessment: 76-year-old female here for evaluation of shortness of breath due to COVID-19 pneumonia. Plan: Acute hypoxia due to Covid pneumonia: Continue oxygen 10 L Pulmonology consult placed IV antibiotic Continue to monitor End-stage renal disease: Dialysis per protocol Diabetes: Check blood sugar ACHS Sliding scale per protocol Hypertension: Continue home medication - Advance Directives Does patient have a Living Will: Yes Does patient have a Durable POA for Healthcare: No
[2021-05-20] MEDS ORDERED: GLUCAGON 1 MG/VIAL IM PRN (16:35)
[2021-05-20] MEDS ORDERED: D50W 25 GM/50 ML SYRINGE IV PRN (16:35)
[2021-05-20] MEDS ORDERED: MELATONIN 5 MG TABLET PO PRN (16:39)
[2021-05-20] MEDS: ASCORBIC ACID 500 MG TABLET PO SCH ×2 (17:00→23:02)
[2021-05-20] MEDS ORDERED: MORPHINE 2 MG/ML SYR ONE (18:40)
[2021-05-20] MEDS: INSULIN -REGULAR HUMAN 50 UNIT/0.5 ML ML SQ SCH (21:00)
[2021-05-20] MEDS ORDERED: CEFEPIME 2 GM VIAL IV SCH (21:00)
[2021-05-20] MEDS ORDERED: CEFEPIME 2 GM in NA CHLORIDE 0.9% 100 ML IV ONE (22:00)
[2021-05-20] MEDS ORDERED: FAMOTIDINE 20 MG/2 ML VIAL IV ONE (22:00)
[2021-05-20] MEDS ORDERED: CEFEPIME 2 GM VIAL IV ONE (22:00)
[2021-05-20] MEDS: METHYLPREDNISOLONE 40 MG INJ IV SCH (23:02)
[2021-05-20] MEDS ORDERED: NA CHLORIDE 0.9% 100 ML ONE (23:20)
[2021-05-20] MEDS ORDERED: CEFEPIME 1 GM/VIAL ONE (23:21)
[2021-05-21 04:46] LABS: Absolute Lymphocytes (CBC) 1.1 K/uL (0.7-4.9); Basophils % 0.4 % (0-1.3); Lymphocytes % 8.1 % (15.3-44.8); MPV 8.6 fL (7.6-11.3); RBC Red Blood Cell Count 2.57 M/uL (3.86-4.86)
[2021-05-21 05:24] LABS: Ferritin 6580.9 ng/mL (8-388)
[2021-05-21] MEDS: INSULIN -REGULAR HUMAN 50 UNIT/0.5 ML ML SQ SCH ×4 (07:30→20:15)
[2021-05-21] MEDS ORDERED: VANCOMYCIN ORAL SOLN 250 MG/5 ML OSYR PO SCH (09:00)
[2021-05-21] MEDS: METHYLPREDNISOLONE 40 MG INJ IV SCH ×2 (09:13→20:00)
[2021-05-21] MEDS: FAMOTIDINE 20 MG/2 ML VIAL IV SCH (09:14)
[2021-05-21] MEDS: ZINC SULFATE 220 MG CAP PO SCH (09:14)
[2021-05-21] MEDS: ASCORBIC ACID 500 MG TABLET PO SCH ×4 (09:14→20:01)
[2021-05-21] MEDS: LOPERAMIDE HCL 2 MG CAPSULE PO PRN (09:15)
[2021-05-21] MEDS: VITAMIN D 5,000 UNIT CAP PO SCH (09:15)
[2021-05-21] MEDS: HYDROCODONE/CHLORPHEN 5 ML/OSYR PO PRN ×2 (09:16→20:44)
--- NOTE | 2021-05-21 10:04 | P.CNS ---
Date of Consult: 05/21/21 Reason for Consult: resp failure and Diarhea Chief Complaint: hypoxia History of Present Illness: AGe 76 AW resp failure COVID penumonia and sever diarhea Allergies aspirin [From Percodan] Adverse Reaction (Verified 04/22/16 09:44) Rash oxycodone [From Percodan] Adverse Reaction (Verified 04/22/16 09:44) Rash Home Medications: Amlodipine [Norvasc*] 10 mg PO DAILY #30 tab 08/11/17 Pantoprazole [Protonix Tab*] 40 mg PO DAILYAC #60 tab 08/11/17 Brimonidine Tartrate/Timolol [Combigan 0.2%-0.5% Eye Drops] 1 drop EACH EYE BID 12/13/19 Calcium Acetate [Phoslo*] 1 tab PO SEECOM 12/13/19 Doxazosin [Cardura*] 1 tab PO BID 12/13/19 Metoprolol Succinate [Toprol Xl] 1 tab PO DAILY 12/13/19 Furosemide [Lasix*] 40 mg PO DAILY #30 tab 12/14/19 Furosemide [Lasix] 40 mg PO DAILY #30 tab 12/14/19 - Past Medical/Surgical History Diabetic: Yes -: hypertension -: diabetes -: gout -: dialysis -: hysterectomy -: lumpectomy -: cataract surgery Psychosocial/ Personal History: Patient lives at home and is . - Social History Alcohol use: No CD- Drugs: No Caffeine use: No Review of Systems General: Weakness Respiratory: Shortness of Breath Gastrointestinal: Diarrhea Physical Examination Temp Pulse Resp BP Pulse Ox 97.2 F 86 25 H 162/62 H 96 05/21/21 00:00 05/21/21 08:00 05/21/21 08:00 05/21/21 08:00 05/21/21 08:00 General: Alert, Oriented x3, Cooperative Laboratory Data (last 24 hrs) 05/20/21 14:45: PT 12.9 H, INR 1.12, APTT 30.2 05/20/21 14:45: WBC 11.10 H D, Hgb 8.9 L, Hct 26.5 L, Plt Count 185 05/20/21 14:45: Sodium 139, Potassium 3.9, BUN 50 H D, Creatinine 12.00 H* D, Glucose 144 H, Total Bilirubin 0.5, AST 59 H, ALT 40, Alkaline Phosphatase 49, Amylase 158 H, Lipase 295 - Problems (1) Pneumonia due to 2019 novel coronavirus Current Visit: Yes Status: Acute Plan: AGe 76 AW severe COVID penumonia and diarhea, Start on Po vanc and immodium. Dialyis pt on 55% Fio2VS stable/ C def tox pending/ LAbs and meds reviewed advance dietDC Cefepime for now
[2021-05-21] MEDS ORDERED: ASPIRIN 81 MG CHEWABLE TABLET PO ONE (10:35)
--- NOTE | 2021-05-21 10:39 | P.CNS ---
Date of Consult: 05/21/21 Reason for Consult: ESRD Requesting Physician: siobhan serra Chief Complaint: hypoxia History of Present Illness: 76-year-old female with end-stage renal disease on dialysis, diabetes presents for evaluation of shortness of breath. She was seen in the ED 1 week ago for positive Covid test and pulmonary edema. She was treated with Lasix and was discharged after she was stabilized. She came back today with complaints of worsening of shortness of breath, oxygen saturation on room air in the 80%. She denies fever, nausea, vomiting, diarrhea, chest pain. White blood count 11, procalcitonin 23, ABG within normal limits, chest x-ray noted for Covid pneumonia, troponin 1.5. 14:57 This 76 yrs old Black Female presents to ER via EMS with complaints of Shortness Of ma2 Breath, Altered Mental Status. 14:57 The patient has shortness of breath at rest. ma2 14:58 The patient has shortness of breath with light activity. Onset: The symptoms/episode ma2 began/occurred gradually, 1 week(s) ago. Associated signs and symptoms: Pertinent positives: non-productive cough, Pertinent negatives: diaphoresis, fever, hemoptysis, loss of consciousness, numbness in extremities. Severity of symptoms: At their worst the symptoms were moderate in the emergency department the symptoms are unchanged. The patient has not experienced similar symptoms in the past. Allergies aspirin [From Percodan] Adverse Reaction (Verified 04/22/16 09:44) Rash oxycodone [From Percodan] Adverse Reaction (Verified 04/22/16 09:44) Rash Home medications list reviewed: Yes Home Medications: Amlodipine [Norvasc*] 10 mg PO DAILY #30 tab 08/11/17 Pantoprazole [Protonix Tab*] 40 mg PO DAILYAC #60 tab 08/11/17 Brimonidine Tartrate/Timolol [Combigan 0.2%-0.5% Eye Drops] 1 drop EACH EYE BID 12/13/19 Calcium Acetate [Phoslo*] 1 tab PO SEECOM 12/13/19 Doxazosin [Cardura*] 1 tab PO BID 12/13/19 Metoprolol Succinate [Toprol Xl] 1 tab PO DAILY 12/13/19 Furosemide [Lasix*] 40 mg PO DAILY #30 tab 12/14/19 Furosemide [Lasix] 40 mg PO DAILY #30 tab 12/14/19 - Past Medical/Surgical History Diabetic: Yes -: hypertension -: diabetes -: gout -: dialysis -: hysterectomy -: lumpectomy -: cataract surgery Psychosocial/ Personal History: Patient lives at home and is . - Social History Alcohol use: No CD- Drugs: No Caffeine use: No Review of Systems 10-point ROS is otherwise unremarkable General: Weakness, Malaise Respiratory: Shortness of Breath Neurological: Weakness Physical Examination Temp Pulse Resp BP Pulse Ox 97.2 F 86 25 H 162/62 H 96 05/21/21 00:00 05/21/21 08:00 05/21/21 08:00 05/21/21 08:00 05/21/21 08:00 General: Oriented x3, Cooperative HEENT: Atraumatic Neck: Supple Respiratory: Diminished Cardiovascular: No edema Gastrointestinal: Non-distended Musculoskeletal: No clubbing, No contractures Integumentary: No rashes, No cyanosis Neurological: Normal speech Laboratory Data (last 24 hrs) 05/20/21 14:45: PT 12.9 H, INR 1.12, APTT 30.2 05/20/21 14:45: WBC 11.10 H D, Hgb 8.9 L, Hct 26.5 L, Plt Count 185 05/20/21 14:45: Sodium 139, Potassium 3.9, BUN 50 H D, Creatinine 12.00 H* D, Glucose 144 H, Total Bilirubin 0.5, AST 59 H, ALT 40, Alkaline Phosphatase 49, Amylase 158 H, Lipase 295 Imagings Data: EXAM DESCRIPTION: RAD - Chest Single View - 05/20/2021 3:36 pm CLINICAL HISTORY: code sepsis COMPARISON: Single-view chest May 16 TECHNIQUE: AP portable chest image was obtained 05/20/2021 3:36 pm . FINDINGS: Mid and lower lung field airspace opacification. There is relative sparing of each apex. Heart size is mildly enlarged. No vascular engorgement confirmed. No cavitation or focal mass. No measurable pleural effusion and no pneumothorax. No acute bony abnormality seen. No acute aortic findings segura spected. IMPRESSION: Bilateral airspace opacification most likely pneumonia. COVID-19 pneumonia would be a primary consideration in the current clinical environment. Non COVID viral pneumonia and bilateral bacterial pneumonia are possible as well. Conclusions/Impression: ESRD -HD TIW -Next HD tomorrow HTN -Restart Amlodipine BID Diastolic CHF -Low sodium diet DM II with CKD -RISS Moderate malnutrition -Encourage nutrition -Start Nepro Anemia in CKD -Start Retacrit -Transfuse PRBC as needed CKD MBD Hypocalcemia -Continue Vitamin D3 COVID-19 PNA Acute hypoxic respiratory failure -Continue Oxygen -Continue Solumedrol Thank you kindly for the consultation. Critical Care: Yes (>30min)
[2021-05-21] MEDS ORDERED: EPOETIN ALFA-EPBX 10,000 UNIT/ML VIAL SQ ONE ×2 (11:00→13:00)
--- NOTE | 2021-05-21 11:32 | P.PN ---
Subjective Date of Service: 05/21/21 Chief Complaint: hypoxia Patient requiring high-flow oxygen now. She also reports diarrhea. Physical Examination - Vital Signs Temperature: 97.8 F Blood Pressure: 151/77 Pulse: 82 Respirations: 21 Pulse Ox (%): 86 - Physical Exam General: Alert, In no apparent distress HEENT: Mucous membr. moist/pink Respiratory: Other (Nonlabored breathing, bibasilar crackles) Cardiovascular: No edema, Regular rate/rhythm, Normal S1 S2 Gastrointestinal: Normal bowel sounds, Soft and benign, Non-distended Musculoskeletal: No swelling Integumentary: No rashes, No breakdown Neurological: Normal strength at 5/5 x4 extr - Studies Laboratory Data (last 24 hrs) 05/20/21 14:45: PT 12.9 H, INR 1.12, APTT 30.2 05/20/21 14:45: WBC 11.10 H D, Hgb 8.9 L, Hct 26.5 L, Plt Count 185 05/20/21 14:45: Sodium 139, Potassium 3.9, BUN 50 H D, Creatinine 12.00 H* D, Glucose 144 H, Total Bilirubin 0.5, AST 59 H, ALT 40, Alkaline Phosphatase 49, Amylase 158 H, Lipase 295 Assessment And Plan - Current Problems (Diagnosis) (1) Acute respiratory failure with hypoxia Current Visit: Yes Status: Acute (2) Pneumonia due to 2019 novel coronavirus Current Visit: Yes Status: Acute (3) Acute gastroenteritis Current Visit: Yes Status: Acute (4) End-stage renal disease on hemodialysis Current Visit: Yes Status: Acute (5) GERD (gastroesophageal reflux disease) Current Visit: No Status: Suspected Qualifiers: Esophagitis presence: esophagitis presence not specified Qualified Code(s): K21.9 - Gastro-esophageal reflux disease without esophagitis (6) Anemia in chronic kidney disease Current Visit: Yes Status: Acute - Plan Continue IV steroid, vitamin supplementation, zinc supplementation. Patient seen by pulmonary. Stool studies for C. diff. Empiric oral vancomycin until C. diff was ruled out. Patient seen by nephrology-Dr. Dunbar. Hemodialysis per Dr. Dunbar. Titrate oxygen Monitor inflammatory markers. Monitor CBC and transfuse p.r.n. for hemoglobin less 8. Heparin subcu for DVT prophylaxis.
[2021-05-21 12:14] LABS: C.diff Antigen/Toxin Ag neg : Tox neg (NEG : NEG)
[2021-05-21] MEDS: NEPRO SHAKE 237 ML CAN PO SCH ×2 (12:43→20:01)
[2021-05-21] MEDS ORDERED: EPOETIN ALFA 10,000 UNIT/ML VIAL SQ ONE (14:00)
[2021-05-21] MEDS: ACETAMINOPHEN 500 MG TAB PO PRN (14:45)
[2021-05-21] MEDS: AMLODIPINE 5 MG TAB PO SCH (20:00)
[2021-05-21] MEDS: HEPARIN 5000 UNIT/ML 1 ML VIAL SQ SCH (20:00)
[2021-05-21] MEDS ORDERED: CEFEPIME 1 GM/100 ML BAG IV SCH (21:00)
[2021-05-21] MEDS: BENZONATATE 100 MG CAP PO PRN (22:20)
[2021-05-22] MEDS ORDERED: LORazepam 2 MG/ML VIAL IV ONE (01:02)
[2021-05-22] MEDS ORDERED: LORazepam 2 MG/ML VIAL ONE (01:28)
[2021-05-22 05:18] LABS: Absolute Lymphocytes (CBC) 0.9 K/uL (0.7-4.9); Basophils % 0.1 % (0-1.3); Hematocrit 25.3 % (36.0-45.0); Lymphocytes % 4.4 % (15.3-44.8); MPV 9.3 fL (7.6-11.3); RBC Red Blood Cell Count 2.63 M/uL (3.86-4.86)
[2021-05-22] MEDS: BENZONATATE 100 MG CAP PO PRN ×3 (05:20→17:33)
[2021-05-22 06:07] LABS: Albumin 2.3 g/dL (3.4-5.0); Bilirubin Total 0.4 mg/dL (0.2-1.0); Magnesium 2.2 mg/dL (1.8-2.4); Phosphorus 5.4 mg/dL (2.5-4.9); Protein, Total 7.3 g/dL (6.4-8.2)
[2021-05-22 06:15] LABS: Ferritin 7391.7 ng/mL (8-388)
[2021-05-22 06:58] LABS: Anisocytosis SLIGHT; Blood Morphology Comment NOTED (NOT SEEN); Platelet Estimate ADEQ
[2021-05-22] MEDS ORDERED: MANNITOL 25% 12.5 GM/50 ML VIAL IV PRN (07:07)
[2021-05-22] MEDS ORDERED: NA CHLORIDE 0.9% 1,000 ML IV PRN (07:07)
[2021-05-22] MEDS ORDERED: ALBUMIN HUMAN 25% 50 ML IV SCH (08:00)
[2021-05-22] MEDS: HYDROCODONE/CHLORPHEN 5 ML/OSYR PO PRN ×2 (08:06→20:01)
[2021-05-22] MEDS: INSULIN -REGULAR HUMAN 50 UNIT/0.5 ML ML SQ SCH ×4 (08:06→20:07)
[2021-05-22] MEDS: FAMOTIDINE 20 MG/2 ML VIAL IV SCH (08:50)
[2021-05-22] MEDS: HEPARIN 5000 UNIT/ML 1 ML VIAL SQ SCH ×2 (08:50→20:00)
[2021-05-22] MEDS: VITAMIN D 5,000 UNIT CAP PO SCH (08:50)
[2021-05-22] MEDS: ASCORBIC ACID 500 MG TABLET PO SCH (08:50)
[2021-05-22] MEDS: NEPRO SHAKE 237 ML CAN PO SCH ×3 (08:51→20:01)
[2021-05-22] MEDS: AMLODIPINE 5 MG TAB PO SCH ×2 (08:51→20:01)
[2021-05-22] MEDS: METHYLPREDNISOLONE 40 MG INJ IV SCH ×2 (08:52→20:00)
[2021-05-22] MEDS: ZINC SULFATE 220 MG CAP PO SCH (08:52)
[2021-05-22] MEDS ORDERED: ASPIRIN 81 MG CHEWABLE TABLET PO SCH (09:00)
--- NOTE | 2021-05-22 11:11 | P.PN ---
Subjective Date of Service: 05/22/21 Chief Complaint: hypoxia Subjective: Other (overnight with confusion, agitated. improved with medication. patient with slight confusion this morning, AOx2. reports feeling a little better today) Review of Systems 10-point ROS is otherwise unremarkable Physical Examination - Vital Signs Temperature: 97.5 F Blood Pressure: 151/75 Pulse: 99 Respirations: 31 Pulse Ox (%): 100 Assessment & Plan Physician Review Additional Text: Physical Exam General: AAOx2, NAD HEENT: normal conjunctiva, sclera anicteric Respiratory: Nonlabored breathing on HFNC Cardiovascular: No edema, Regular rate/rhythm, Normal S1 S2 Gastrointestinal: soft, non-distended Musculoskeletal: No swelling Integumentary: No rashes Problem List Acute hypoxic respiratory failure secondary to COVID-19 pneumonia ESRD on HD Acute gastroenteritis GERD Anemia in chronic kidney disease Acute delirium Continue IV steroid, vitamin supplementation, zinc supplementation. Pulm consulted C. diff negative, PO Vanc discontinued Patient seen by nephrology-Dr. Dunbar Hemodialysis per Dr. Dunbar. Titrate oxygen Monitor CBC and transfuse p.r.n. for hemoglobin less 8. slight improvement this morning encourage PO intake discussed code status, pt states full code Dispo: anticipate hospitalization > 2 days Time 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
--- NOTE | 2021-05-22 12:12 | P.PN ---
Subjective Date of Service: 05/22/21 Chief Complaint: resp failure Subjective: Improving (C/o cough O2 has reduce to 7 l/ CRF) Review of Systems General: Weakness Respiratory: Cough, Shortness of Breath Physical Examination - Vital Signs Temperature: 97.5 F Blood Pressure: 151/75 Pulse: 99 Respirations: 31 Pulse Ox (%): 100 - Physical Exam General: Alert, Oriented x3, Cooperative, Mild distress Assessment & Plan - Problems (Diagnosis) (1) Pneumonia due to 2019 novel coronavirus Current Visit: Yes Status: Acute Plan: Improving C/o cough add Bedenoside nebs for cough, CRFon dialysis/c def neg
[2021-05-22] MEDS: LOPERAMIDE HCL 2 MG CAPSULE PO PRN (17:22)
[2021-05-22] MEDS: ACETAMINOPHEN 500 MG TAB PO PRN (17:23)
[2021-05-22] MEDS: BUDESONIDE 0.5 MG/2 ML NEB NEB SCH (19:30)
--- NOTE | 2021-05-22 19:44 | P.PN ---
Date of Service: 05/22/21 Vital Signs Temp Pulse Resp BP Pulse Ox 98.1 F 101 H 24 H 131/67 97 05/22/21 16:00 05/22/21 18:00 05/22/21 18:00 05/22/21 18:00 05/22/21 18:00 Medications Acetaminophen (Acetaminophen 500 Mg Tab) 500 mg PO Q6H PRN PRN Reason: fever Last Admin: 05/22/21 17:23 Dose: 500 mg Documented by: Amlodipine Besylate (Amlodipine 5 Mg Tab) 5 mg PO BID SELMA Last Admin: 05/22/21 08:51 Dose: 5 mg Documented by: Benzonatate (Benzonatate 100 Mg Cap) 100 mg PO TID PRN PRN Reason: COUGH Last Admin: 05/22/21 17:33 Dose: 100 mg Documented by: Budesonide (Budesonide 0.5 Mg/2 Ml Neb) 0.5 mg NEB BIDRESP SELMA Chlorphenir/Hydrocodone Polistirex (Hydrocodone/Chlorphen 5 Ml/Osyr) 5 ml PO BID PRN PRN Reason: COUGH Last Admin: 05/22/21 08:06 Dose: 5 ml Documented by: Cholecalciferol (Vitamin D 5,000 Unit Cap) 5,000 unit PO DAILY SELMA Last Admin: 05/22/21 08:50 Dose: 5,000 unit Documented by: Enteral Nutritional Formula (Nepro Shake 237 Ml Can) 240 ml PO TID SELMA Last Admin: 05/22/21 15:59 Dose: 240 ml Documented by: Famotidine (Famotidine 20 Mg/2 Ml Vial) 20 mg IV DAILY [facility]; Protocol Last Admin: 05/22/21 08:50 Dose: 20 mg Documented by: Heparin Sodium (Porcine) (Heparin 5000 Unit/Ml 1 Ml Vial) 5,000 unit SQ Q12HR [facility] Last Admin: 05/22/21 08:50 Dose: 5,000 unit Documented by: Heparin Sodium (Porcine) (Heparin 1,000 Unit/Ml Vial) 6,000 unit IV EVERY HD PRN PRN Reason: AFTER EACH Sodium Chloride (Ns 1000 Ml Ivbag) 1,000 mls @ 0 mls/hr IV .Q0M PRN; Protocol PRN Reason: Priming and BP support at HD Stop: 05/22/21 23:59 Albumin Human (Albumin 25%) 50 mls @ 100 mls/hr IV EVERY HD [facility] Insulin Human Regular (Insulin -Regular Human 50 Unit/0.5 Ml Ml) 0 unit SQ ACHS SELMA; Protocol Last Admin: 05/22/21 17:24 Dose: 2 unit Documented by: Loperamide HCl (Loperamide Hcl 2 Mg Capsule) 2 mg PO Q2H PRN PRN Reason: DIARRHEA Last Admin: 05/22/21 17:22 Dose: 2 mg Documented by: Mannitol (Mannitol 25% 12.5 Gm/50 Ml Vial) 12.5 gm IV EVERY HD PRN PRN Reason: Titrate to SBP (MUST DEFINE) Melatonin (Melatonin 5 Mg Tablet) 10 mg PO BEDTIME PRN PRN PRN Reason: AGITATION Methylprednisolone Sodium Succinate (Methylprednisolone 40 Mg Inj) 40 mg IV BID [facility] Microbiology Results 05/20/21 15:00 Blood - Blood Aerobic Blood Culture - Preliminary No growth in 24 hours. 05/20/21 15:00 Blood - Blood Anaerobic Blood Culture - Preliminary No growth in 24 hours. 05/20/21 14:45 Blood - Blood Aerobic Blood Culture - Preliminary No growth in 24 hours. 05/20/21 14:45 Blood - Blood Anaerobic Blood Culture - Preliminary No growth in 24 hours. Assessment/ Plan: Nephrology Progress Note Persistent dyspnea with hypoxia Poor appetite No acute events overnight Vitals, medications blood work and imaging reviewed in the chart General: Oriented x3, Cooperative HEENT: Atraumatic Neck: Supple Respiratory: Diminished Cardiovascular: No edema Gastrointestinal: Non-distended Musculoskeletal: No clubbing, No contractures Integumentary: No rashes, No cyanosis Neurological: Normal speech Greater than 30min patient care. Laboratory Data (last 24 hrs) 05/20/21 14:45: PT 12.9 H, INR 1.12, APTT 30.2 05/20/21 14:45: WBC 11.10 H D, Hgb 8.9 L, Hct 26.5 L, Plt Count 185 05/20/21 14:45: Sodium 139, Potassium 3.9, BUN 50 H D, Creatinine 12.00 H* D, Glucose 144 H, Total Bilirubin 0.5, AST 59 H, ALT 40, Alkaline Phosphatase 49, Amylase 158 H, Lipase 295 Imagings Data: EXAM DESCRIPTION: RAD - Chest Single View - 05/20/2021 3:36 pm CLINICAL HISTORY: code sepsis COMPARISON: Single-view chest May 16 TECHNIQUE: AP portable chest image was obtained 05/20/2021 3:36 pm . FINDINGS: Mid and lower lung field airspace opacification. There is relative sparing of each apex. Heart size is mildly enlarged. No vascular engorgement confirmed. No cavitation or focal mass. No measurable pleural effusion and no pneumothorax. No acute bony abnormality seen. No acute aortic findings suspected. IMPRESSION: Bilateral airspace opacification most likely pneumonia. COVID-19 pneumonia would be a primary consideration in the current clinical environment. Non COVID viral pneumonia and bilateral bacterial pneumonia are possible as well. Conclusions/Impression: ESRD -HD TIW -Seen and examined on HD HTN -Continue Amlodipine BID Diastolic CHF -Low sodium diet DM II with CKD -RISS Moderate malnutrition -Encourage nutrition -Continue Nepro Anemia in CKD -Retacrit PRN -Transfuse PRBC as needed CKD MBD Hypocalcemia -Continue Vitamin D3 COVID-19 PNA Acute hypoxic respiratory failure -Continue Oxygen -Continue Solumedrol
[2021-05-23] MEDS: BENZONATATE 100 MG CAP PO PRN ×2 (02:04→08:37)
[2021-05-23 05:32] LABS: Absolute Lymphocytes (CBC) 1.4 K/uL (0.7-4.9); Basophils % 0.3 % (0-1.3); Hematocrit 25.4 % (36.0-45.0); Lymphocytes % 6.7 % (15.3-44.8); MPV 9.1 fL (7.6-11.3); RBC Red Blood Cell Count 2.65 M/uL (3.86-4.86)
--- NOTE | 2021-05-23 05:48 | P.PN ---
Subjective Date of Service: 05/23/21 Chief Complaint: resp failure Subjective: Improving (AAOx3, still with slight confusion per nursing staff. down to 4L NC. overall feeling better, still very fatigued / sleepy. tolerating dialysis) Review of Systems 10-point ROS is otherwise unremarkable Physical Examination - Vital Signs Temperature: 96.8 F Blood Pressure: 142/96 Pulse: 109 Respirations: 25 Pulse Ox (%): 98 Assessment & Plan Physician Review Additional Text: Physical Exam General: AAOx3, NAD, fatigued appearing HEENT: normal conjunctiva, sclera anicteric Respiratory: Nonlabored breathing on 4L NC Cardiovascular: No edema, Regular rate/rhythm Gastrointestinal: soft, non-distended Musculoskeletal: No swelling Integumentary: No rashes Problem List Acute hypoxic respiratory failure secondary to COVID-19 pneumonia ESRD on HD Acute gastroenteritis GERD Anemia in chronic kidney disease Acute delirium Continue steroid, vitamin supplementation, zinc supplementation. Pulm consulted C. diff negative, PO Vanc discontinued Patient seen by nephrology-Dr. Dunbar Hemodialysis per Dr. Dunbar. Titrate oxygen Monitor CBC and transfuse p.r.n. for hemoglobin less 8. continues to improve, oxygen weaned down to 4l NC encourage PO intake PT consulted discussed code status, pt states full code Dispo: anticipate dc home in 1-2 days Time 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
[2021-05-23 07:08] LABS: Albumin 2.4 g/dL (3.4-5.0); Bilirubin Total 0.5 mg/dL (0.2-1.0); Ferritin 8043.2 ng/mL (8-388); Magnesium 2.1 mg/dL (1.8-2.4); Phosphorus 4.4 mg/dL (2.5-4.9); Potassium 4.1 mmol/L (3.5-5.1); Protein, Total 7.7 g/dL (6.4-8.2)
[2021-05-23 08:06] LABS: Blood Morphology Comment NOT SEEN (NOT SEEN); Platelet Estimate ADEQ
[2021-05-23] MEDS: HYDROCODONE/CHLORPHEN 5 ML/OSYR PO PRN (08:36)
[2021-05-23] MEDS: HEPARIN 5000 UNIT/ML 1 ML VIAL SQ SCH ×2 (08:36→20:02)
[2021-05-23] MEDS: LOPERAMIDE HCL 2 MG CAPSULE PO PRN (08:36)
[2021-05-23] MEDS: INSULIN -REGULAR HUMAN 50 UNIT/0.5 ML ML SQ SCH ×4 (08:36→20:15)
[2021-05-23] MEDS: FAMOTIDINE 20 MG/2 ML VIAL IV SCH (08:37)
[2021-05-23] MEDS: METHYLPREDNISOLONE 40 MG INJ IV SCH ×2 (08:37→20:02)
[2021-05-23] MEDS: AMLODIPINE 5 MG TAB PO SCH ×2 (08:37→20:02)
[2021-05-23] MEDS: NEPRO SHAKE 237 ML CAN PO SCH ×3 (08:38→20:04)
[2021-05-23] MEDS: VITAMIN D 5,000 UNIT CAP PO SCH (08:38)
[2021-05-23] MEDS: BUDESONIDE 0.5 MG/2 ML NEB NEB SCH ×2 (10:10→19:40)
--- NOTE | 2021-05-23 21:49 | P.PN ---
Date of Service: 05/23/21 Vital Signs Temp Pulse Resp BP Pulse Ox 96.9 F 97 H 23 H 149/67 H 97 05/23/21 20:00 05/23/21 20:02 05/23/21 20:00 05/23/21 20:02 05/23/21 20:00 Medications Acetaminophen (Acetaminophen 500 Mg Tab) 500 mg PO Q6H PRN PRN Reason: fever Last Admin: 05/22/21 17:23 Dose: 500 mg Documented by: Amlodipine Besylate (Amlodipine 5 Mg Tab) 5 mg PO BID [facility] Last Admin: 05/23/21 20:02 Dose: 5 mg Documented by: Benzonatate (Benzonatate 100 Mg Cap) 100 mg PO TID PRN PRN Reason: COUGH Last Admin: 05/23/21 08:37 Dose: 100 mg Documented by: Budesonide (Budesonide 0.5 Mg/2 Ml Neb) 0.5 mg NEB BIDRESP [facility] Last Admin: 05/23/21 19:40 Dose: 0.5 mg Documented by: Chlorphenir/Hydrocodone Polistirex (Hydrocodone/Chlorphen 5 Ml/Osyr) 5 ml PO BID PRN PRN Reason: COUGH Last Admin: 05/23/21 08:36 Dose: 5 ml Documented by: Cholecalciferol (Vitamin D 5,000 Unit Cap) 5,000 unit PO DAILY [facility] Last Admin: 05/23/21 08:38 Dose: 5,000 unit Documented by: Enteral Nutritional Formula (Nepro Shake 237 Ml Can) 240 ml PO TID [facility] Last Admin: 05/23/21 20:04 Dose: 240 ml Documented by: Famotidine (Famotidine 20 Mg/2 Ml Vial) 20 mg IV DAILY [facility]; Protocol Last Admin: 05/23/21 08:37 Dose: 20 mg Documented by: Heparin Sodium (Porcine) (Heparin 5000 Unit/Ml 1 Ml Vial) 5,000 unit SQ Q12HR [facility] Last Admin: 05/23/21 20:02 Dose: 5,000 unit Documented by: Heparin Sodium (Porcine) (Heparin 1,000 Unit/Ml Vial) 6,000 unit IV EVERY HD PRN PRN Reason: AFTER EACH Albumin Human (Albumin 25%) 50 mls @ 100 mls/hr IV EVERY HD [facility] Insulin Human Regular (Insulin -Regular Human 50 Unit/0.5 Ml Ml) 0 unit SQ ACHS [facility]; Protocol Last Admin: 05/23/21 20:15 Dose: 6 unit Documented by: Loperamide HCl (Loperamide Hcl 2 Mg Capsule) 2 mg PO Q2H PRN PRN Reason: DIARRHEA Last Admin: 05/23/21 08:36 Dose: 2 mg Documented by: Mannitol (Mannitol 25% 12.5 Gm/50 Ml Vial) 12.5 gm IV EVERY HD PRN PRN Reason: Titrate to SBP (MUST DEFINE) Melatonin (Melatonin 5 Mg Tablet) 10 mg PO BEDTIME PRN PRN PRN Reason: AGITATION Methylprednisolone Sodium Succinate (Methylprednisolone 40 Mg Inj) 40 mg IV BID SELMA Last Admin: 05/23/21 20:02 Dose: 40 mg Documented by: Microbiology Results 05/20/21 15:00 Blood - Blood Aerobic Blood Culture - Preliminary No growth in 24 hours. 05/20/21 15:00 Blood - Blood Anaerobic Blood Culture - Preliminary No growth in 24 hours. 05/20/21 14:45 Blood - Blood Aerobic Blood Culture - Preliminary No growth in 24 hours. 05/20/21 14:45 Blood - Blood Anaerobic Blood Culture - Preliminary No growth in 24 hours. Assessment/ Plan: Nephrology Progress Note Persistent dyspnea with hypoxia Poor appetite. Episodes of confusion. No acute events overnight Vitals, medications blood work and imaging reviewed in the chart General: Oriented x3, Cooperative HEENT: Atraumatic Neck: Supple Respiratory: Diminished Cardiovascular: No edema Gastrointestinal: Non-distended Musculoskeletal: No clubbing, No contractures Integumentary: No rashes, No cyanosis Neurological: Normal speech Greater than 30min patient care. Laboratory Data (last 24 hrs) 05/20/21 14:45: PT 12.9 H, INR 1.12, APTT 30.2 05/20/21 14:45: WBC 11.10 H D, Hgb 8.9 L, Hct 26.5 L, Plt Count 185 05/20/21 14:45: Sodium 139, Potassium 3.9, BUN 50 H D, Creatinine 12.00 H* D, Glucose 144 H, Total Bilirubin 0.5, AST 59 H, ALT 40, Alkaline Phosphatase 49, Amylase 158 H, Lipase 295 Imagings Data: EXAM DESCRIPTION: RAD - Chest Single View - 05/20/2021 3:36 pm CLINICAL HISTORY: code sepsis COMPARISON: Single-view chest May 16 TECHNIQUE: AP portable chest image was obtained 05/20/2021 3:36 pm . FINDINGS: Mid and lower lung field airspace opacification. There is relative sparing of each apex. Heart size is mildly enlarged. No vascular engorgement confirmed. No cavitation or focal mass. No measurable pleural effusion and no pneumothorax. No acute bony abnormality seen. No acute aortic findings suspected. IMPRESSION: Bilateral airspace opacification most likely pneumonia. COVID-19 pneumonia would be a primary consideration in the current clinical environment. Non COVID viral pneumonia and bilateral bacterial pneumonia are possible as well. Conclusions/Impression: ESRD -HD TIW HTN -Continue Amlodipine BID Diastolic CHF -Low sodium diet DM II with CKD -RISS Moderate malnutrition -Encourage nutrition -Continue Nepro Anemia in CKD -Retacrit PRN -Transfuse PRBC as needed CKD MBD Hypocalcemia -Continue Vitamin D3 COVID-19 PNA Acute hypoxic respiratory failure -Continue Oxygen -Continue Solumedrol
[2021-05-24] MEDS: HYDROCODONE/CHLORPHEN 5 ML/OSYR PO PRN ×2 (01:01→09:05)
[2021-05-24 05:37] LABS: Absolute Lymphocytes (CBC) 1.1 K/uL (0.7-4.9); Basophils % 0.3 % (0-1.3); Hematocrit 25.3 % (36.0-45.0); Lymphocytes % 5.1 % (15.3-44.8); MPV 8.9 fL (7.6-11.3); RBC Red Blood Cell Count 2.65 M/uL (3.86-4.86)
--- NOTE | 2021-05-24 06:05 | P.PN ---
Subjective Date of Service: 05/24/21 Chief Complaint: resp failure Subjective: Improving (Oxygen requirement improving, confusion continues to slowly improve, patient very debilitated and weak, still with encephalopathy, follows some commands, does seem to be oriented x3. With home back pain this morning) Review of Systems 10-point ROS is otherwise unremarkable Physical Examination - Vital Signs Temperature: 97.0 F Blood Pressure: 152/74 Pulse: 97 Respirations: 25 Pulse Ox (%): 94 Assessment & Plan Physician Review Additional Text: Physical Exam General: AAOx3, fatigued appearing, slow to answer questions, follows some commands HEENT: normal conjunctiva, sclera anicteric Respiratory: Nonlabored breathing on 2L NC Cardiovascular: No edema, Regular rate/rhythm Gastrointestinal: soft, non-distended Musculoskeletal: No swelling Integumentary: No rashes Problem List Acute hypoxic respiratory failure secondary to COVID-19 pneumonia ESRD on HD Acute gastroenteritis GERD Anemia in chronic kidney disease Acute delirium /encephalopathy, likely secondary to Covid 19, possibly steroid- induced Continue steroid (changed to p.o. on 05/24), vitamin supplementation, zinc supplementation. Pulm consulted C. diff negative, PO Vanc discontinued Patient seen by nephrology-Dr. Dunbar Hemodialysis per Dr. Dunbar. Titrate oxygen Monitor CBC and transfuse p.r.n. for hemoglobin less 8. continues to improve, oxygen weaned down encourage PO intake PT consulted -patient very weak, will discuss further with family today, given how functional she was prior to this and with her improving encephalopathy, inpatient rehab may be a better option Received a dose of IV morphine this morning for back pain which appears to be chronic, patient little bit more somnolent this morning Code: full Dispo: anticipate dc in 1-2 days, will discuss with family Time 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
[2021-05-24] MEDS: ACETAMINOPHEN 500 MG TAB PO PRN ×2 (06:12→22:57)
[2021-05-24] MEDS: BENZONATATE 100 MG CAP PO PRN ×2 (06:13→22:58)
[2021-05-24 06:16] LABS: Albumin 2.3 g/dL (3.4-5.0); Bilirubin Total 0.5 mg/dL (0.2-1.0); Ferritin 8339.3 ng/mL (8-388); Magnesium 2.5 mg/dL (1.8-2.4); Phosphorus 3.1 mg/dL (2.5-4.9); Potassium 4.1 mmol/L (3.5-5.1); Protein, Total 7.7 g/dL (6.4-8.2)
[2021-05-24] MEDS ORDERED: MORPHINE 2 MG/ML SYR IV PRN (06:17)
[2021-05-24] MEDS ORDERED: MORPHINE 2 MG/ML SYR ONE (06:44)
[2021-05-24 08:12] LABS: Blood Morphology Comment NOT SEEN (NOT SEEN); Platelet Estimate ADEQ
[2021-05-24] MEDS: BUDESONIDE 0.5 MG/2 ML NEB NEB SCH ×2 (08:25→19:48)
[2021-05-24] MEDS: INSULIN -REGULAR HUMAN 50 UNIT/0.5 ML ML SQ SCH ×4 (09:02→20:35)
[2021-05-24] MEDS: AMLODIPINE 5 MG TAB PO SCH ×3 (09:03→21:00)
[2021-05-24] MEDS: predniSONE 20 MG TAB PO SCH ×4 (09:03→21:00)
[2021-05-24] MEDS: HEPARIN 5000 UNIT/ML 1 ML VIAL SQ SCH ×2 (09:03→20:18)
[2021-05-24] MEDS: VITAMIN D 5,000 UNIT CAP PO SCH (09:03)
[2021-05-24] MEDS: NEPRO SHAKE 237 ML CAN PO SCH ×4 (09:29→21:00)
[2021-05-24] MEDS: FAMOTIDINE 20 MG/2 ML VIAL IV SCH (09:30)
--- NOTE | 2021-05-24 20:22 | P.PN ---
Date of Service: 05/24/21 Vital Signs Temp Pulse Resp BP Pulse Ox 97.4 F 107 H 26 H 147/90 H 93 05/24/21 16:00 05/24/21 18:00 05/24/21 18:00 05/24/21 18:00 05/24/21 17:00 Medications Acetaminophen (Acetaminophen 500 Mg Tab) 500 mg PO Q6H PRN PRN Reason: fever Last Admin: 05/22/21 17:23 Dose: 500 mg Documented by: Amlodipine Besylate (Amlodipine 5 Mg Tab) 5 mg PO BID [facility] Last Admin: 05/24/21 09:03 Dose: 5 mg Documented by: Benzonatate (Benzonatate 100 Mg Cap) 100 mg PO TID PRN PRN Reason: COUGH Last Admin: 05/23/21 08:37 Dose: 100 mg Documented by: Budesonide (Budesonide 0.5 Mg/2 Ml Neb) 0.5 mg NEB BIDRESP [facility] Last Admin: 05/24/21 08:25 Dose: 0.5 mg Documented by: Chlorphenir/Hydrocodone Polistirex (Hydrocodone/Chlorphen 5 Ml/Osyr) 5 ml PO BID PRN PRN Reason: COUGH Last Admin: 05/24/21 09:05 Dose: 5 ml Documented by: Cholecalciferol (Vitamin D 5,000 Unit Cap) 5,000 unit PO DAILY [facility] Last Admin: 05/24/21 09:03 Dose: 5,000 unit Documented by: Enteral Nutritional Formula (Nepro Shake 237 Ml Can) 240 ml PO TID [facility] Last Admin: 05/24/21 14:07 Dose: 240 ml Documented by: Famotidine (Famotidine 20 Mg/2 Ml Vial) 20 mg IV DAILY [facility]; Protocol Last Admin: 05/24/21 09:30 Dose: 20 mg Documented by: Heparin Sodium (Porcine) (Heparin 5000 Unit/Ml 1 Ml Vial) 5,000 unit SQ Q12HR [facility] Last Admin: 05/24/21 09:03 Dose: 5,000 unit Documented by: Heparin Sodium (Porcine) (Heparin 1,000 Unit/Ml Vial) 6,000 unit IV EVERY HD PRN PRN Reason: AFTER EACH Albumin Human (Albumin 25%) 50 mls @ 100 mls/hr IV EVERY HD [facility] Insulin Human Regular (Insulin -Regular Human 50 Unit/0.5 Ml Ml) 0 unit SQ ACHS [facility]; Protocol Last Admin: 05/24/21 17:52 Dose: 4 unit Documented by: Loperamide HCl (Loperamide Hcl 2 Mg Capsule) 2 mg PO Q2H PRN PRN Reason: DIARRHEA Last Admin: 05/23/21 08:36 Dose: 2 mg Documented by: Mannitol (Mannitol 25% 12.5 Gm/50 Ml Vial) 12.5 gm IV EVERY HD PRN PRN Reason: Titrate to SBP (MUST DEFINE) Melatonin (Melatonin 5 Mg Tablet) 10 mg PO BEDTIME PRN PRN PRN Reason: AGITATION Prednisone (Prednisone 20 Mg Tab) 20 mg PO BID [facility] Last Admin: 05/24/21 09:03 Dose: 20 mg Documented by: Microbiology Results 05/20/21 15:00 Blood - Blood Aerobic Blood Culture - Preliminary No growth in 24 hours. 05/20/21 15:00 Blood - Blood Anaerobic Blood Culture - Preliminary No growth in 24 hours. 05/20/21 14:45 Blood - Blood Aerobic Blood Culture - Preliminary No growth in 24 hours. 05/20/21 14:45 Blood - Blood Anaerobic Blood Culture - Preliminary No growth in 24 hours. Assessment/ Plan: Nephrology Progress Note Diffuse weakness. Poor appetite. Episodes of confusion. No acute events overnight Vitals, medications blood work and imaging reviewed in the chart General: Oriented x3, Cooperative HEENT: Atraumatic Neck: Supple Respiratory: Diminished Cardiovascular: No edema Gastrointestinal: Non-distended Musculoskeletal: No clubbing, No contractures Integumentary: No rashes, No cyanosis Neurological: Normal speech Greater than 30min patient care. Laboratory Data (last 24 hrs) 05/20/21 14:45: PT 12.9 H, INR 1.12, APTT 30.2 05/20/21 14:45: WBC 11.10 H D, Hgb 8.9 L, Hct 26.5 L, Plt Count 185 05/20/21 14:45: Sodium 139, Potassium 3.9, BUN 50 H D, Creatinine 12.00 H* D, Glucose 144 H, Total Bilirubin 0.5, AST 59 H, ALT 40, Alkaline Phosphatase 49, Amylase 158 H, Lipase 295 Imagings Data: EXAM DESCRIPTION: RAD - Chest Single View - 05/20/2021 3:36 pm CLINICAL HISTORY: code sepsis COMPARISON: Single-view chest May 16 TECHNIQUE: AP portable chest image was obtained 05/20/2021 3:36 pm . FINDINGS: Mid and lower lung field airspace opacification. There is relative sparing of each apex. Heart size is mildly enlarged. No vascular engorgement confirmed. No cavitation or focal mass. No measurable pleural effusion and no pneumothorax. No acute bony abnormality seen. No acute aortic findings suspected. IMPRESSION: Bilateral airspace opacification most likely pneumonia. COVID-19 pneumonia would be a primary consideration in the current clinical environment. Non COVID viral pneumonia and bilateral bacterial pneumonia are possible as well. Conclusions/Impression: ESRD -HD TIW -HD today HTN -Continue Amlodipine BID Diastolic CHF -Low sodium diet DM II with CKD -RISS Moderate malnutrition -Encourage nutrition -Continue Nepro Anemia in CKD -Retacrit in the am -Transfuse PRBC as needed CKD MBD Hypocalcemia -Continue Vitamin D3 COVID-19 PNA Acute hypoxic respiratory failure -Continue Oxygen -Wean steroids Case reviewed with Dr. Kirk
[2021-05-24] MEDS ORDERED: BUDESONIDE 0.5 MG/2 ML NEB NEB PRN (20:34)
--- NOTE | 2021-05-24 20:36 | P.PN ---
Subjective Date of Service: 05/24/21 Chief Complaint: COVID encepahlopathy Subjective: Improving (C/o LE weakness unable to walk confused and disorientated) Review of Systems is unable to be obtained Physical Examination - Vital Signs Temperature: 97.4 F Blood Pressure: 137/68 Pulse: 93 Respirations: 26 Pulse Ox (%): 93 - Physical Exam General: Alert, In no apparent distress, Cooperative Neck: Supple Respiratory: Clear to auscultation bilaterally Assessment & Plan - Problems (Diagnosis) (1) Pneumonia due to 2019 novel coronavirus Current Visit: Yes Status: Acute Plan: Stable Cough has imroved on 2 l n can WBC elevated, Reduce pred/DC melatonin. LE weakness unable to walk
[2021-05-25] MEDS ORDERED: FENTANYL CITR 100 MCG/2 ML IV ONE (00:33)
[2021-05-25] MEDS ORDERED: FENTANYL CITR 100 MCG/2 ML ONE (01:01)
[2021-05-25] MEDS ORDERED: LORazepam 2 MG/ML VIAL IV ONE (04:24)
--- NOTE | 2021-05-25 05:51 | P.PN ---
Subjective Date of Service: 05/25/21 Chief Complaint: COVID encepahlopathy Subjective: Other (Overnight, patient moaning/groaning, screaming at times, asking for somebody to help her. When asked what is going on or if she is in any pain, she just continues to say to help her. This has occurred the last 2- 3 nights. Nursing staff reported patient is more awake/alert and calm during the day) Review of Systems is unable to be obtained Physical Examination - Vital Signs Temperature: 97.2 F Blood Pressure: 150/73 Pulse: 107 Respirations: 23 Pulse Ox (%): 93 Assessment & Plan Physician Review Additional Text: Physical Exam General: AAOx2, appears to be in moderate distress, confused HEENT: normal conjunctiva, sclera anicteric Respiratory: Nonlabored breathing on 2L NC, nonproductive cough Cardiovascular: No edema, sinus tachycardia Gastrointestinal: soft, non-distended Musculoskeletal: No swelling Integumentary: No rashes Problem List Acute hypoxic respiratory failure secondary to COVID-19 pneumonia ESRD on HD Acute gastroenteritis GERD Anemia in chronic kidney disease Acute delirium /encephalopathy, likely secondary to Covid 19, possibly steroid- induced Continue steroid (changed to p.o. on 05/24), vitamin supplementation, zinc supplementation. Pulm consulted C. diff negative, PO Vanc discontinued Patient seen by nephrology-Dr. Dunbar Hemodialysis per Dr. Dunbar. Monitor CBC and transfuse p.r.n. for hemoglobin less 8. Oxygen requirement improving Continues with her encephalopathy, seem to have some initial improvement, now moaning and groaning, appears to be in pain. Responds with "I do not know" when asked if she is having pain. Difficult to examine, maybe some slight tenderness in the abdomen, however patient was screaming throughout the exam, regardless of where I was palpating. Trying to avoid opioid medication, but will give low-dose morphine, seem to have been snowed with 2 mg IV the other day. Patient with excoriated superficial skin in the perirectal/perineal region, likely from all of the diarrhea. Patient is refusing p.o. medications at times. PT consulted -patient very weak, will discuss further with family today, given how functional she was prior to this and with her improving encephalopathy, inpatient rehab may be a better option Patient continues with COVID encephalopathy, refusing p.o. medications, will need to change p.o. steroids to IV Difficult to get accurate answers/exam from the patient. May benefit from Geodon Code: full Dispo: anticipate dc in 3-4 days, will discuss with family May be more appropriate for an LTAC/rehab Time 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
[2021-05-25 06:21] LABS: Absolute Lymphocytes (CBC) 1.3 K/uL (0.7-4.9); Basophils % 0.1 % (0-1.3); Hematocrit 26.2 % (36.0-45.0); Lymphocytes % 6.3 % (15.3-44.8); MPV 9.4 fL (7.6-11.3); RBC Red Blood Cell Count 2.77 M/uL (3.86-4.86)
[2021-05-25 06:24] LABS: Albumin 2.4 g/dL (3.4-5.0); Bilirubin Total 0.6 mg/dL (0.2-1.0); Magnesium 2.1 mg/dL (1.8-2.4); Protein, Total 7.6 g/dL (6.4-8.2)
[2021-05-25 06:39] LABS: Ferritin 8339.3 ng/mL (8-388)
[2021-05-25] MEDS ORDERED: WATER FOR INJ,STERILE 10 ML IM PRN (07:44)
[2021-05-25 08:19] LABS: Blood Morphology Comment NOTED (NOT SEEN); Platelet Estimate ADEQ; Polychromasia 1+
[2021-05-25] MEDS ORDERED: MORPHINE 2 MG/ML SYR IV ONE (08:21)
[2021-05-25] MEDS: FAMOTIDINE 20 MG TAB PO SCH ×2 (08:53→09:00)
[2021-05-25] MEDS: VITAMIN D 5,000 UNIT CAP PO SCH ×2 (08:53→09:00)
[2021-05-25] MEDS: predniSONE 20 MG TAB PO SCH ×2 (08:53→09:00)
[2021-05-25] MEDS: AMLODIPINE 5 MG TAB PO SCH ×3 (08:53→20:09)
[2021-05-25] MEDS: INSULIN -REGULAR HUMAN 50 UNIT/0.5 ML ML SQ SCH ×4 (08:54→20:09)
[2021-05-25] MEDS: HEPARIN 5000 UNIT/ML 1 ML VIAL SQ SCH ×2 (08:54→20:08)
[2021-05-25] MEDS: HYDROCODONE/CHLORPHEN 5 ML/OSYR PO PRN (08:54)
[2021-05-25] MEDS: NEPRO SHAKE 237 ML CAN PO SCH ×2 (09:00→14:00)
[2021-05-25] MEDS ORDERED: EPOETIN ALFA 10,000 UNIT/ML VIAL SQ SCH (09:00)
--- NOTE | 2021-05-25 10:32 | RAD REPORT ---
EXAM DESCRIPTION: RAD - Chest Single View - 05/25/2021 10:19 am CLINICAL HISTORY: r/o pneumothorax, hypoxemia COMPARISON: Chest Single View dated 05/20/2021; Chest Single View dated 05/16/2021; Chest Pa And Lat ( 2 Views) dated 12/14/2019; Chest Single View dated 12/13/2019 FINDINGS: Lines: None. Lungs: Widespread bilateral airspace disease. Aeration of the lungs, particularly upper lobes has mod estly worsened compared with 05/20/2021. Pleural: No significant pleural effusions or pneumothorax. Cardiac: Mild cardiomegaly. Bones: No acute fractures. Other: IMPRESSION: Severe widespread bilateral airspace disease with worsened aeration in the upper lobes c ompared with 05/20/2021. No pneumothorax .
[2021-05-25] MEDS: dexAMETHasone 4 MG/ML VIAL IV SCH ×2 (12:44→20:09)
[2021-05-25] MEDS ORDERED: EPOETIN ALFA-EPBX 10,000 UNIT/ML VIAL ONE (13:11)
[2021-05-25] MEDS: ZIPRASIDONE MESYLA 20 MG/VIAL IM PRN (13:46)
[2021-05-25] MEDS ORDERED: MORPHINE 2 MG/ML SYR IV PRN (14:23)
--- NOTE | 2021-05-25 16:50 | RAD REPORT ---
EXAM DESCRIPTION: RAD - Abdomen 1 View (KUB) - 05/25/2021 4:43 pm CLINICAL HISTORY: dobhoff placement Pain COMPARISON: No comparisons FINDINGS: The tip of the enteric tube appears within a dilated stomach.
[2021-05-25] MEDS ORDERED: VITAL AF 1,000 ML BOT RTH SCH (17:00)
[2021-05-25] MEDS: LOPERAMIDE HCL 2 MG CAPSULE PO PRN (17:46)
--- NOTE | 2021-05-25 21:34 | P.PN ---
Date of Service: 05/25/21 Vital Signs Temp Pulse Resp BP Pulse Ox 97.6 F 101 H 16 130/58 L 100 05/25/21 20:00 05/25/21 20:09 05/25/21 20:00 05/25/21 20:09 05/25/21 20:00 Medications Acetaminophen (Acetaminophen 500 Mg Tab) 500 mg PO Q6H PRN PRN Reason: fever Last Admin: 05/22/21 17:23 Dose: 500 mg Documented by: Amlodipine Besylate (Amlodipine 5 Mg Tab) 5 mg PO BID [facility] Last Admin: 05/25/21 20:09 Dose: Not Given Documented by: Benzonatate (Benzonatate 100 Mg Cap) 100 mg PO TID PRN PRN Reason: COUGH Last Admin: 05/23/21 08:37 Dose: 100 mg Documented by: Budesonide (Budesonide 0.5 Mg/2 Ml Neb) 0.5 mg NEB BIDRESP PRN PRN Reason: COUGH Last Admin: 05/25/21 08:05 Dose: 0.5 mg Documented by: Chlorphenir/Hydrocodone Polistirex (Hydrocodone/Chlorphen 5 Ml/Osyr) 5 ml PO BID PRN PRN Reason: COUGH Last Admin: 05/25/21 08:54 Dose: 5 ml Documented by: Cholecalciferol (Vitamin D 5,000 Unit Cap) 5,000 unit PO DAILY [facility] Last Admin: 05/25/21 09:00 Dose: Not Given Documented by: Dexamethasone (Dexamethasone 4 Mg/Ml Vial) 4 mg IV BID [facility] Last Admin: 05/25/21 20:09 Dose: 4 mg Documented by: Famotidine (Famotidine 20 Mg Tab) 20 mg PO DAILY [facility]; Protocol Last Admin: 05/25/21 09:00 Dose: Not Given Documented by: Heparin Sodium (Porcine) (Heparin 5000 Unit/Ml 1 Ml Vial) 5,000 unit SQ Q12HR [facility] Last Admin: 05/25/21 20:08 Dose: 5,000 unit Documented by: Heparin Sodium (Porcine) (Heparin 1,000 Unit/Ml Vial) 6,000 unit IV EVERY HD PRN PRN Reason: AFTER EACH Albumin Human (Albumin 25%) 50 mls @ 100 mls/hr IV EVERY HD [facility] Insulin Human Regular (Insulin -Regular Human 50 Unit/0.5 Ml Ml) 0 unit SQ ACHS [facility]; Protocol Last Admin: 05/25/21 20:09 Dose: 2 unit Documented by: Loperamide HCl (Loperamide Hcl 2 Mg Capsule) 2 mg PO Q2H PRN PRN Reason: DIARRHEA Last Admin: 05/25/21 17:46 Dose: 2 mg Documented by: Mannitol (Mannitol 25% 12.5 Gm/50 Ml Vial) 12.5 gm IV EVERY HD PRN PRN Reason: Titrate to SBP (MUST DEFINE) Morphine Sulfate (Morphine 2 Mg/Ml Syr) 1 mg IV Q6H PRN PRN Reason: Pain scale 8-10 (Severe) Nutritional Formula (Vital Af 1,000 Ml Bot) 0 ml RTH CONT SELMA Sterile Water (Water For Inj,Sterile 10 Ml) 1.2 ml IM UD PRN PRN Reason: DILUTION OF MED Last Admin: 05/25/21 13:45 Dose: 1.2 ml Documented by: Ziprasidone (Ziprasidone Mesyla 20 Mg/Vial) 10 mg IM Q12H PRN PRN Reason: AGITATION Last Admin: 05/25/21 13:46 Dose: 10 mg Documented by: Microbiology Results 05/20/21 15:00 Blood - Blood Aerobic Blood Culture - Final No growth in 5 days. 05/20/21 15:00 Blood - Blood Anaerobic Blood Culture - Final No growth in 5 days. 05/20/21 14:45 Blood - Blood Aerobic Blood Culture - Final No growth in 5 days. 05/20/21 14:45 Blood - Blood Anaerobic Blood Culture - Final No growth in 5 days. Assessment/ Plan: Nephrology Progress Note Worsening mental status No acute events overnight Vitals, medications blood work and imaging reviewed in the chart General: Oriented x3, Cooperative HEENT: Atraumatic Neck: Supple Respiratory: Diminished Cardiovascular: No edema Gastrointestinal: Non-distended Musculoskeletal: No clubbing, No contractures Integumentary: No rashes, No cyanosis Neurological: Normal speech Greater than 30min patient care. Laboratory Data (last 24 hrs) 05/20/21 14:45: PT 12.9 H, INR 1.12, APTT 30.2 05/20/21 14:45: WBC 11.10 H D, Hgb 8.9 L, Hct 26.5 L, Plt Count 185 05/20/21 14:45: Sodium 139, Potassium 3.9, BUN 50 H D, Creatinine 12.00 H* D, Glucose 144 H, Total Bilirubin 0.5, AST 59 H, ALT 40, Alkaline Phosphatase 49, Amylase 158 H, Lipase 295 Imagings Data: EXAM DESCRIPTION: RAD - Chest Single View - 05/20/2021 3:36 pm CLINICAL HISTORY: code sepsis COMPARISON: Single-view chest May 16 TECHNIQUE: AP portable chest image was obtained 05/20/2021 3:36 pm . FINDINGS: Mid and lower lung field airspace opacification. There is relative sparing of each apex. Heart size is mildly enlarged. No vascular engorgement confirmed. No cavitation or focal mass. No measurable pleural effusion and no pneumothorax. No acute bony abnormality seen. No acute aortic findings suspected. IMPRESSION: Bilateral airspace opacification most likely pneumonia. COVID-19 pneumonia would be a primary consideration in the current clinical environment. Non COVID viral pneumonia and bilateral bacterial pneumonia are possible as well. Conclusions/Impression: ESRD -HD TIW HTN -Continue Amlodipine BID Diastolic CHF -Low sodium diet DM II with CKD -RISS Moderate malnutrition -Start tube feeds Anemia in CKD -Retacrit prn -Transfuse PRBC as needed CKD MBD Hypocalcemia -Continue Vitamin D3 COVID-19 PNA Acute hypoxic respiratory failure -Continue Oxygen -Wean steroids Toxic metabolic encephalopathy Case reviewed with Dr. Kirk
[2021-05-25] MEDS ORDERED: LIDOCAINE/PRILOCAINE CREAM TOP PRN (21:37)
[2021-05-26] MEDS: HYDROCODONE/CHLORPHEN 5 ML/OSYR PO PRN ×2 (01:47→13:42)
[2021-05-26] MEDS ORDERED: RSI MEDICATION KIT IV ONE (04:00)
[2021-05-26] MEDS: ZIPRASIDONE MESYLA 20 MG/VIAL IM PRN (04:50)
--- NOTE | 2021-05-26 05:59 | P.PN ---
Date of Service: 05/26/21 Subjective Yesterday afternoon/evening, patient with more oxygen requirement Nursing staff report patient pulled Dobbhoff out overnight, while they were attending to a WILLIAM HARVEY. Otherwise patient has been relatively stable, not screaming out in pain as much she was the day before. Still confused Still not able to have good/effective communication. Sleepy this morning, received morphine Review of Systems is unable to be obtained Physical Examination General: Confused, sleepy, arousable, responds yes/no, nods head to some questions HEENT: normal conjunctiva, sclera anicteric Respiratory: Nonlabored breathing on 2L NC, nonproductive cough Cardiovascular: No edema, sinus tachycardia Gastrointestinal: soft, non-distended Musculoskeletal: No swelling Integumentary: Excoriated skin perirectal area Problem List Acute hypoxic respiratory failure secondary to COVID-19 pneumonia ESRD on HD Acute gastroenteritis GERD Anemia in chronic kidney disease Acute delirium /encephalopathy, likely secondary to Covid 19, possibly steroid- induced Continue steroid (changed to p.o. on 05/24 changed back to IV due to pt refusing PO meds intermittently on 05/25), vitamin supplementation, zinc supplementation. Pulm consulted C. diff negative. Diarrhea slightly improved after Dobbhoff/Imodium yesterday. Patient seen by nephrology-Dr. Dunbar Hemodialysis per Dr. Dunbar. Monitor CBC and transfuse p.r.n. for hemoglobin less 8. Continues with encephalopathy, initially had some improvement, now moaning/groaning, unable to get specific answers of what is hurting her. On exam, she may be having some abdominal tenderness, pain in her perirectal area from excoriated skin from diarrhea. Wound care consult Family report patient is very sensitive to opioid medications. She did seem to get snowed from 2 mg IV morphine few days ago. Morphine dose reduced, Geodon started to potentially help with this delirium PT consulted -patient very weak, given how functional she was prior to this and with her improving encephalopathy, inpatient rehab may be a better option Patient continues with COVID encephalopathy, refusing p.o. medications Difficult to get accurate answers/exam from the patient. Worsening hypoxia, CXR on 05/25 showed worsening aeration. Hypoxia could be from worsening Covid pneumonia, possible PE. Will discuss with pulmonology, may need for anticoagulation. Code: full Dispo: anticipate dc in several days Discussed patient's clinical status at length with 2 of her sons on 05/25. They were considering possible rehab depending on how her clinical picture is in the next few days. may be more appropriate for LTAC Time Spent Managing Pts Care (In Minutes): 45
[2021-05-26] MEDS: INSULIN -REGULAR HUMAN 50 UNIT/0.5 ML ML SQ SCH ×6 (07:30→19:46)
[2021-05-26 07:46] LABS: Absolute Lymphocytes (CBC) 1.2 K/uL (0.7-4.9); Basophils % 0.4 % (0-1.3); Hematocrit 28.7 % (36.0-45.0); Lymphocytes % 8.1 % (15.3-44.8); MPV 9.3 fL (7.6-11.3); RBC Red Blood Cell Count 2.95 M/uL (3.86-4.86)
[2021-05-26 08:25] LABS: Albumin 2.4 g/dL (3.4-5.0); Bilirubin Total 0.4 mg/dL (0.2-1.0); Potassium 5.3 mmol/L (3.5-5.1); Protein, Total 7.7 g/dL (6.4-8.2)
[2021-05-26] MEDS: AMLODIPINE 5 MG TAB PO SCH ×2 (09:00→19:43)
[2021-05-26] MEDS: HEPARIN 5000 UNIT/ML 1 ML VIAL SQ SCH ×2 (09:13→19:44)
[2021-05-26] MEDS: dexAMETHasone 4 MG/ML VIAL IV SCH ×2 (09:13→19:44)
[2021-05-26] MEDS ORDERED: MORPHINE 2 MG/ML SYR IV PRN (12:15)
--- NOTE | 2021-05-26 13:25 | RAD REPORT ---
EXAM DESCRIPTION: RAD - Abdomen 1 View (KUB) - 05/26/2021 12:15 pm CLINICAL HISTORY: new dobhoff placement COMPARISON: Abdomen 1 View (KUB) dated 05/25/2021 FINDINGS: Weighted feeding tube tip overlying the stomach. Widespread airspace disease again noted. The bowel gas pattern is nonobstructive. IMPRESSION: Weighted feeding tube tip overlying the lower stomach.
[2021-05-26] MEDS: VITAMIN D 5,000 UNIT CAP PO SCH (13:42)
[2021-05-26] MEDS: FAMOTIDINE 20 MG TAB PO SCH (13:42)
--- NOTE | 2021-05-26 14:18 | PN ---
Date of Progress Note: 05/26/2021 Subjective: The patient is seen and examined in the ICU. Her condition remains unchanged. She is n onresponsive and she is altered with metabolic encephalopathy. Her oxygen requirements have remained about the same. Review of Systems: Unable to be obtained. Physical Examination: Vital Signs: At this time are showing temperature of 97.5, pulse rate of 84, respiratory rate of 12, and blood pressure 127/69. She is satting 100% on 15 L of oxygen. General Examination: She is altered. She is nonverbal. HEENT Exam: Atraumatic head. Lungs: Auscultation of lungs revealed diminished breath sounds all over. Abdomen: Soft and nontender. Extremities: Showed no evidence of edema. Laboratory Data: Showing creatinine of 8.5, BUN of 70, sodium of 138, and potassium of 5.3. Ferriti n is very high and CBC showing WBC count of 15,000, hemoglobin of 9.2, hematocrit is 28.7, platelet c ount of 203. Impression: 1.End-stage renal disease, on dialysis. The patient will have dialysis today to correct her metabol ic abnormalities and ultrafiltration as of 1-2 L as tolerated. 2.COVID-19 pneumonia with hypoxic respiratory failure. 3.Gastroenteritis. 4.Anemia of chronic kidney disease. 5.Toxic metabolic encephalopathy from COVID-19, leading to altered mental status. Plan: The patient's steroids are being tapered. She is being monitored with antibiotics. Leukocyto sis is being monitored. The patient will need her dialysis today to correct her metabolic abnormalit ies and to improve her uremia. Dr. Kirk is working on reducing her morphine dose and Tomasa has bee n added to help with the delirium, but the patient's prognosis remains poor. VV/MODL Voice ID: [id number] Report ID: [id number]
[2021-05-26] MEDS ORDERED: D50W 25 GM/50 ML SYRINGE IV PRN (18:18)
[2021-05-26] MEDS ORDERED: GLUCAGON 1 MG/VIAL IM PRN (18:18)
[2021-05-26] MEDS ORDERED: INSULIN GLARGINE 100 UNITS/ML SQ SCH (21:00)
[2021-05-27] MEDS: HYDROCODONE/CHLORPHEN 5 ML/OSYR PO PRN ×2 (03:52→16:47)
[2021-05-27 05:45] LABS: Absolute Lymphocytes (CBC) 0.9 K/uL (0.7-4.9); Basophils % 0.2 % (0-1.3); Hematocrit 25.9 % (36.0-45.0); Lymphocytes % 6.6 % (15.3-44.8); MPV 9.1 fL (7.6-11.3); RBC Red Blood Cell Count 2.73 M/uL (3.86-4.86)
--- NOTE | 2021-05-27 05:58 | P.PN ---
Date of Service: 05/27/21 Subjective More calm this morning, still confused, intermittently follows basic commands, nods yes/no no meaningful conversation required morphine overnight - shouting in pain. marcdon given as well arousable this morning, not following commands Review of Systems is unable to be obtained Physical Examination General: Confused, sleepy, arousable, responds yes/no, nods head to some questions HEENT: normal conjunctiva, sclera anicteric Respiratory: Nonlabored breathing on 5L NC, nonproductive cough Cardiovascular: No edema, sinus tachycardia Gastrointestinal: soft, non-distended, questionable mild R abdominal discomfort with palpation Musculoskeletal: No swelling Integumentary: Excoriated skin perirectal area Problem List Acute hypoxic respiratory failure secondary to COVID-19 pneumonia ESRD on HD Acute gastroenteritis GERD Anemia in chronic kidney disease Acute delirium /encephalopathy, likely secondary to Covid 19, possibly steroid- induced steroid induced hyperglycemia COVID-19 pneumonia Acute metabolic encephalopathy secondary to COVID-19 /acute delirium Acutely worsened few days ago, chest x-ray with worsening opacities. Possible concern for PE. Pulmonology recommends holding off on full anticoagulation Patient was intermittently refusing p.o. meds and did miss 1 or 2 doses of steroids. Switch back to IV Patient oxygenation has been improving over the last 2 days Continue steroids, vitamin supplementation Continues with encephalopathy, minimizing opioid use but patient moans/groans and screams at times in what appears to be pain. She is unable to elaborate or given point to where she may be hurting On exam she appears to be slightly tender in her right abdomen, and has excoriated skin in the perirectal area from the diarrhea. The excoriated skin seems to be the majority of her pain Family state patient does not respond well/gets mad easily from opioid medication. Minimize dosage Acute gastroenteritis She has been having multiple episodes of loose stool/diarrhea. Improved after Dobbhoff/Imodium. Patient pulled Dobbhoff yesterday but was replaced on 05/26 Continue tube feeds, continue Imodium Steroid-induced hyperglycemia, titrate insulin for better control ESRD on HD Nephrology consulted, HD per their recommendations Code: full Dispo: anticipate dc in several days Discussed patient's clinical status at length with 2 of her sons on 05/25. They were considering possible rehab depending on how her clinical picture is in the next few days. may be more appropriate for LTAC Time 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
[2021-05-27 06:06] LABS: Albumin 2.3 g/dL (3.4-5.0); Bilirubin Total 0.5 mg/dL (0.2-1.0); C-Reactive Protein 84.6 mg/L (<3.00); Magnesium 2.1 mg/dL (1.8-2.4); Potassium 5.1 mmol/L (3.5-5.1); Protein, Total 7.2 g/dL (6.4-8.2)
[2021-05-27 08:23] LABS: White Blood Cell Scan OK (OK)
[2021-05-27 08:26] LABS: Blood Morphology Comment NOTED (NOT SEEN)
[2021-05-27 08:27] LABS: Platelet Estimate ADEQ
[2021-05-27] MEDS: VITAMIN D 5,000 UNIT CAP PO SCH (09:00)
[2021-05-27] MEDS: INSULIN -REGULAR HUMAN 50 UNIT/0.5 ML ML SQ SCH ×4 (09:10→19:43)
[2021-05-27] MEDS: INSULIN GLARGINE 100 UNITS/ML SQ SCH ×2 (09:10→16:30)
[2021-05-27] MEDS: FAMOTIDINE 20 MG TAB PO SCH (09:11)
[2021-05-27] MEDS: AMLODIPINE 5 MG TAB PO SCH ×2 (09:11→19:44)
[2021-05-27] MEDS: dexAMETHasone 4 MG/ML VIAL IV SCH ×2 (09:13→19:44)
[2021-05-27] MEDS: HEPARIN 5000 UNIT/ML 1 ML VIAL SQ SCH ×2 (09:14→19:44)
--- NOTE | 2021-05-27 10:51 | P.PN ---
Subjective Date of Service: 05/27/21 Chief Complaint: COVID encepahlopathy Patient's oxygenation is improving still is delirious profound weakness Review of Systems is unable to be obtained Physical Examination - Vital Signs Temperature: 96.7 F Blood Pressure: 124/55 Pulse: 96 Respirations: 20 Pulse Ox (%): 95 - Physical Exam General: Unresponsive Assessment & Plan - Problems (Diagnosis) (1) Pneumonia due to 2019 novel coronavirus Current Visit: Yes Status: Acute Plan: Patient's oxygenation has improved profound weakness encephalopathic agitation p atient is currently on tube feeds very weak noncooperative chronic renal failure add low-dose Seroquel at night start on high-dose IV thiamine
[2021-05-27] MEDS: THIAMINE 200 MG/2 ML INJ IVP SCH ×2 (11:13→19:44)
[2021-05-27] MEDS: QUETIAPINE 25 MG TAB PO SCH (19:44)
[2021-05-28] MEDS: HYDROCODONE/CHLORPHEN 5 ML/OSYR PO PRN ×2 (02:25→16:17)
[2021-05-28 04:58] LABS: Absolute Lymphocytes (CBC) 1.5 K/uL (0.7-4.9); Basophils % 0.2 % (0-1.3); Hematocrit 27.1 % (36.0-45.0); Lymphocytes % 8.4 % (15.3-44.8); MPV 9.3 fL (7.6-11.3); RBC Red Blood Cell Count 2.81 M/uL (3.86-4.86)
[2021-05-28 05:57] LABS: Potassium 4.9 mmol/L (3.5-5.1)
[2021-05-28 05:58] LABS: Albumin 2.4 g/dL (3.4-5.0); Bilirubin Total 0.4 mg/dL (0.2-1.0); C-Reactive Protein 62.7 mg/L (<3.00); Ferritin 7096.9 ng/mL (8-388); Magnesium 2.3 mg/dL (1.8-2.4); Protein, Total 7.2 g/dL (6.4-8.2)
--- NOTE | 2021-05-28 06:06 | P.PN ---
Date of Service: 05/28/21 Subjective Doing better this morning, more calm. Alert and oriented x2, however does not answer any further questions. Nods yes/no to some. Only following some very basic commands. Seems to scream out when she has soiled herself. Has small soft diarrhea/bowel movement whenever she coughs. Has been coughing quite frequently Review of Systems is unable to be obtained Physical Examination General: Confused, alert and oriented x2 HEENT: normal conjunctiva, sclera anicteric Respiratory: Nonlabored breathing on 4L NC, nonproductive cough Cardiovascular: No edema, sinus tachycardia Gastrointestinal: soft, non-distended, questionable mild R abdominal discomfort with palpation Musculoskeletal: No swelling Integumentary: Excoriated skin perirectal area Problem List Acute hypoxic respiratory failure secondary to COVID-19 pneumonia ESRD on HD Acute gastroenteritis GERD Anemia in chronic kidney disease Acute delirium /encephalopathy, likely secondary to Covid 19, possibly steroid- induced steroid induced hyperglycemia COVID-19 pneumonia Acute metabolic encephalopathy secondary to COVID-19 /acute delirium Acutely worsened few days ago, chest x-ray with worsening opacities. Possible concern for PE. Pulmonology recommends holding off on full anticoagulation. Patient has improved Patient was intermittently refusing p.o. meds and did miss 1 or 2 doses of steroids. Switched back to IV Patient oxygenation has been improving over the last 2 days Continue steroids, vitamin supplementation Continues with encephalopathy, minimizing opioid use but patient moans/groans and screams at times in what appears to be pain. She is unable to elaborate or given point to where she may be hurting On exam she appears to be slightly tender in her right abdomen, and has excoria nicho skin in the perirectal area from the diarrhea. The excoriated skin seems to be the majority of her pain Family state patient does not respond well/gets mad easily from opioid medication. Discontinued opioids. Continue with Geodon and Seroquel Acute gastroenteritis She has been having multiple episodes of loose stool/diarrhea. Improved after Dobbhoff/Imodium. Patient pulled Dobbho but was replaced on 05/26 Continue tube feeds, continue Imodium Steroid-induced hyperglycemia, titrate insulin for better control ESRD on HD Nephrology consulted, HD per their recommendations scheduled for today Code: full Dispo: anticipate dc in several days Discussed patient's clinical status at length with 2 of her sons on 10/1. They were considering possible rehab depending on how her clinical picture is in the next few days. but may be more appropriate for SNF, pending any further improvement in mentation Time 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
[2021-05-28] MEDS: AMLODIPINE 5 MG TAB PO SCH ×2 (07:08→20:05)
[2021-05-28] MEDS: LOPERAMIDE HCL 2 MG CAPSULE PO PRN ×3 (07:08→16:17)
[2021-05-28] MEDS: ZIPRASIDONE MESYLA 20 MG/VIAL IM PRN (07:08)
[2021-05-28] MEDS: FAMOTIDINE 20 MG TAB PO SCH (08:05)
[2021-05-28] MEDS: guaiFENesin 100 MG/5 ML UCUP FT PRN ×3 (08:05→18:05)
[2021-05-28] MEDS: VITAMIN D 5,000 UNIT CAP PO SCH (08:05)
[2021-05-28] MEDS: HEPARIN 5000 UNIT/ML 1 ML VIAL SQ SCH ×2 (08:05→20:03)
[2021-05-28] MEDS: dexAMETHasone 4 MG/ML VIAL IV SCH ×2 (08:05→20:04)
[2021-05-28] MEDS: THIAMINE 200 MG/2 ML INJ IVP SCH ×2 (08:05→20:04)
[2021-05-28] MEDS: INSULIN -REGULAR HUMAN 50 UNIT/0.5 ML ML SQ SCH ×4 (08:05→20:09)
[2021-05-28] MEDS: INSULIN GLARGINE 100 UNITS/ML SQ SCH ×2 (08:06→16:20)
--- NOTE | 2021-05-28 17:22 | P.PN ---
Date of Service: 05/28/21 Vital Signs Temp Pulse Resp BP Pulse Ox 97.6 F 100 H 15 131/58 L 93 05/28/21 12:00 05/28/21 17:00 05/28/21 17:00 05/28/21 17:00 05/28/21 17:00 Medications Acetaminophen (Acetaminophen 500 Mg Tab) 500 mg PO Q6H PRN PRN Reason: fever Last Admin: 05/22/21 17:23 Dose: 500 mg Documented by: Amlodipine Besylate (Amlodipine 5 Mg Tab) 5 mg PO BID [facility] Last Admin: 05/28/21 07:08 Dose: 5 mg Documented by: Benzonatate (Benzonatate 100 Mg Cap) 100 mg PO TID PRN PRN Reason: COUGH Last Admin: 05/23/21 08:37 Dose: 100 mg Documented by: Chlorphenir/Hydrocodone Polistirex (Hydrocodone/Chlorphen 5 Ml/Osyr) 5 ml PO BID PRN PRN Reason: COUGH Last Admin: 05/28/21 16:17 Dose: 5 ml Documented by: Cholecalciferol (Vitamin D 5,000 Unit Cap) 5,000 unit PO DAILY [facility] Last Admin: 05/28/21 08:05 Dose: 5,000 unit Documented by: Dexamethasone (Dexamethasone 4 Mg/Ml Vial) 4 mg IV BID [facility] Last Admin: 05/28/21 08:05 Dose: 4 mg Documented by: Dextrose (D50w 25 Gm/50 Ml Syringe) 12.5 gm IV PRN PRN; Protocol PRN Reason: HYPOGLYCEMIA Emollient Gel (Medihoney 44 Ml Topical Tube) 1 appl TOP DAILY [facility] Famotidine (Famotidine 20 Mg Tab) 20 mg PO DAILY [facility]; Protocol Last Admin: 05/28/21 08:05 Dose: 20 mg Documented by: Glucagon (Glucagon 1 Mg/Vial) 1 mg IM 1X PRN; Protocol PRN Reason: HYPOGLYCEMIA Guaifenesin (Guaifenesin 100 Mg/5 Ml Ucup) 100 mg FT QID PRN PRN Reason: COUGH Last Admin: 05/28/21 13:05 Dose: 100 mg Documented by: Heparin Sodium (Porcine) (Heparin 5000 Unit/Ml 1 Ml Vial) 5,000 unit SQ Q12HR [facility] Last Admin: 05/28/21 08:05 Dose: 5,000 unit Documented by: Heparin Sodium (Porcine) (Heparin 1,000 Unit/Ml Vial) 6,000 unit IV EVERY HD PRN PRN Reason: AFTER EACH Albumin Human (Albumin 25%) 50 mls @ 100 mls/hr IV EVERY HD SELMA Insulin Glargine (Insulin Glargine 100 Units/Ml) 10 units SQ BIDAC SELMA Last Admin: 05/28/21 16:20 Dose: 10 units Documented by: Insulin Human Regular (Insulin -Regular Human 50 Unit/0.5 Ml Ml) 0 unit SQ ACHS [facility]; Protocol Last Admin: 05/28/21 16:19 Dose: 4 unit Documented by: Loperamide HCl (Loperamide Hcl 2 Mg Capsule) 2 mg PO Q2H PRN PRN Reason: DIARRHEA Last Admin: 05/28/21 16:17 Dose: 2 mg Documented by: Mannitol (Mannitol 25% 12.5 Gm/50 Ml Vial) 12.5 gm IV EVERY HD PRN PRN Reason: Titrate to SBP (MUST DEFINE) Nutritional Formula (Vital Af 1,000 Ml Bot) 0 ml RTH CONT SELMA Quetiapine Fumarate (Quetiapine 25 Mg Tab) 25 mg PO BEDTIME SELMA Last Admin: 05/27/21 19:44 Dose: 25 mg Documented by: Sterile Water (Water For Inj,Sterile 10 Ml) 1.2 ml IM UD PRN PRN Reason: DILUTION OF MED Last Admin: 05/25/21 13:45 Dose: 1.2 ml Documented by: Thiamine HCl (Thiamine 200 Mg/2 Ml Inj) 200 mg IVP BID [facility]EL[facility] Last Admin: 05/28/21 08:05 Dose: 200 mg Documented by: Ziprasidone (Ziprasidone Mesyla 20 Mg/Vial) 10 mg IM Q12H PRN PRN Reason: AGITATION Last Admin: 05/28/21 07:08 Dose: 10 mg Documented by: Microbiology Results 05/20/21 15:00 Blood - Blood Aerobic Blood Culture - Final No growth in 5 days. 05/20/21 15:00 Blood - Blood Anaerobic Blood Culture - Final No growth in 5 days. 05/20/21 14:45 Blood - Blood Aerobic Blood Culture - Final No growth in 5 days. 05/20/21 14:45 Blood - Blood Anaerobic Blood Culture - Final No growth in 5 days. Assessment/ Plan: Nephrology Progress Note Limited IH/ ROS due to AMS No acute events overnight Vitals, medications blood work and imaging reviewed in the chart General: Awake HEENT: Atraumatic Neck: Supple Respiratory: Diminished Cardiovascular: No edema Gastrointestinal: Non-distended Musculoskeletal: No clubbing, No contractures Integumentary: No rashes, No cyanosis Neurological: Normal speech Greater than 30min patient care. Laboratory Data (last 24 hrs) 05/20/21 14:45: PT 12.9 H, INR 1.12, APTT 30.2 05/20/21 14:45: WBC 11.10 H D, Hgb 8.9 L, Hct 26.5 L, Plt Count 185 05/20/21 14:45: Sodium 139, Potassium 3.9, BUN 50 H D, Creatinine 12.00 H* D, Glucose 144 H, Total Bilirubin 0.5, AST 59 H, ALT 40, Alkaline Phosphatase 49, Amylase 158 H, Lipase 295 Imagings Data: EXAM DESCRIPTION: RAD - Chest Single View - 05/20/2021 3:36 pm CLINICAL HISTORY: code sepsis COMPARISON: Single-view chest May 16 TECHNIQUE: AP portable chest image was obtained 05/20/2021 3:36 pm . FINDINGS: Mid and lower lung field airspace opacification. There is relative sparing of each apex. Heart size is mildly enlarged. No vascular engorgement confirmed. No cavitation or focal mass. No measurable pleural effusion and no pneumothorax. No acute bony abnormality seen. No acute aortic findings suspecte d. IMPRESSION: Bilateral airspace opacification most likely pneumonia. COVID-19 pneumonia would be a primary consideration in the current clinical environment. Non COVID viral pneumonia and bilateral bacterial pneumonia are possible as well. Conclusions/Impression: ESRD -HD TIW -Acute HD today HTN -Continue Amlodipine BID Diastolic CHF -Low sodium diet DM II with CKD -RISS Moderate malnutrition -Continue tube feeds Anemia in CKD -Retacrit prn -Transfuse PRBC as needed CKD MBD Hypocalcemia -Continue Vitamin D3 COVID-19 PNA Acute hypoxic respiratory failure -Continue Oxygen -Wean steroids as tolerated Toxic metabolic encephalopathy -Continue COVID treatment Case reviewed with Dr. Kirk
[2021-05-28] MEDS: QUETIAPINE 25 MG TAB PO SCH (20:04)
[2021-05-29] MEDS: LOPERAMIDE HCL 2 MG CAPSULE PO PRN ×6 (00:27→19:32)
[2021-05-29] MEDS: guaiFENesin 100 MG/5 ML UCUP FT PRN ×4 (00:28→19:31)
[2021-05-29] MEDS: HYDROCODONE/CHLORPHEN 5 ML/OSYR PO PRN ×2 (04:32→15:01)
[2021-05-29 05:18] LABS: Absolute Lymphocytes (CBC) 2.8 K/uL (0.7-4.9); Basophils % 0.3 % (0-1.3); Lymphocytes % 13.8 % (15.3-44.8); MPV 9.3 fL (7.6-11.3); RBC Red Blood Cell Count 3.01 M/uL (3.86-4.86)
[2021-05-29 05:57] LABS: Albumin 2.5 g/dL (3.4-5.0); Bilirubin Total 0.5 mg/dL (0.2-1.0); C-Reactive Protein 44.9 mg/L (<3.00); Ferritin 6774.3 ng/mL (8-388); Potassium 4.6 mmol/L (3.5-5.1); Protein, Total 7.4 g/dL (6.4-8.2)
[2021-05-29] MEDS: INSULIN -REGULAR HUMAN 50 UNIT/0.5 ML ML SQ SCH ×4 (07:28→19:26)
[2021-05-29] MEDS: INSULIN GLARGINE 100 UNITS/ML SQ SCH ×2 (07:28→16:22)
[2021-05-29] MEDS: dexAMETHasone 4 MG/ML VIAL IV SCH (08:00)
[2021-05-29] MEDS: THIAMINE 200 MG/2 ML INJ IVP SCH ×2 (08:00→19:32)
[2021-05-29] MEDS: VITAMIN D 5,000 UNIT CAP PO SCH (08:00)
[2021-05-29] MEDS: AMLODIPINE 5 MG TAB PO SCH ×2 (08:00→19:32)
[2021-05-29] MEDS: FAMOTIDINE 20 MG TAB PO SCH (08:00)
[2021-05-29] MEDS: HEPARIN 5000 UNIT/ML 1 ML VIAL SQ SCH ×2 (08:01→19:31)
[2021-05-29] MEDS: MEDIHONEY 44 ML TOPICAL TUBE TOP SCH (08:03)
--- NOTE | 2021-05-29 11:38 | P.PN ---
Subjective Date of Service: 05/29/21 Chief Complaint: COVID encepahlopathy Better today more alert resp and cooperative Review of Systems General: Weakness Respiratory: Shortness of Breath Physical Examination - Vital Signs Temperature: 97.2 F Blood Pressure: 149/66 Pulse: 112 Respirations: 16 Pulse Ox (%): 95 - Physical Exam General: Alert, Oriented x2, Cooperative Assessment & Plan - Problems (Diagnosis) (1) Pneumonia due to 2019 novel coronavirus Current Visit: Yes Status: Acute Plan: Much better mentally, incr seroquel to 25 BID reduce dose of steroids advance diet/ C/o diarhea SE of tube feeds ?
--- NOTE | 2021-05-29 13:24 | P.PN ---
Subjective Date of Service: 05/29/21 Chief Complaint: COVID encepahlopathy Patient is currently tolerating oxygen by nasal cannula. She is interacting more meaningfully today. Physical Examination - Vital Signs Temperature: 97.2 F Blood Pressure: 149/66 Pulse: 112 Respirations: 16 Pulse Ox (%): 95 - Physical Exam General: In no apparent distress, Confused HEENT: Mucous membr. moist/pink Neck: JVD not distended Respiratory: Other (Nonlabored breathing) Cardiovascular: Normal S1 S2, Other (Tachycardia) Gastrointestinal: Soft and benign, Non-distended Musculoskeletal: No swelling Integumentary: No rashes Neurological: Other (Confused) Assessment And Plan - Current Problems (Diagnosis) (1) Acute respiratory failure with hypoxia Current Visit: Yes Status: Acute (2) Pneumonia due to 2019 novel coronavirus Current Visit: Yes Status: Acute (3) Acute gastroenteritis Current Visit: Yes Status: Acute (4) End-stage renal disease on hemodialysis Current Visit: Yes Status: Acute (5) GERD (gastroesophageal reflux disease) Current Visit: No Status: Suspected Qualifiers: Esophagitis presence: esophagitis presence not specified Qualified Code(s): K21.9 - Gastro-esophageal reflux disease without esophagitis (6) Anemia in chronic kidney disease Current Visit: Yes Status: Acute - Plan Problem List Acute hypoxic respiratory failure secondary to COVID-19 pneumonia ESRD on HD Acute gastroenteritis GERD Anemia in chronic kidney disease Acute delirium /encephalopathy, likely secondary to Covid 19, possibly steroid- induced steroid induced hyperglycemia COVID-19 pneumonia/COVID encephalopathy Acute metabolic encephalopathy secondary to COVID-19 /acute delirium. Mental status is improving. Acutely worsened few days ago, chest x-ray with worsening opacities. Possible concern for PE. Pulmonology recommends holding off on full anticoagulation. Respiratory status has improved. Patient is currently tolerating 2 L oxygen by nasal cannula. Continue steroids, vitamin supplementation Geodon as needed. Continue Seroquel. Acute gastroenteritis She has been having multiple episodes of loose stool/diarrhea. Improved after Dobbhoff/Imodium. Continue tube feeds, continue Imodium Patient has steroid-induced hyperglycemia. Titrate insulin. ESRD on HD Nephrology consulted, HD per their recommendations scheduled for today Code: full Disposition: Family considering skilled rehab.
[2021-05-29] MEDS: dexAMETHasone 4 MG TAB PO SCH (19:32)
[2021-05-29] MEDS: QUETIAPINE 25 MG TAB PO SCH (19:32)
--- NOTE | 2021-05-29 21:04 | P.PN ---
Date of Service: 05/29/21 Vital Signs Temp Pulse Resp BP Pulse Ox 97.8 F 113 H 17 124/63 94 05/29/21 20:00 05/29/21 20:00 05/29/21 20:00 05/29/21 20:00 05/29/21 20:00 Medications Acetaminophen (Acetaminophen 500 Mg Tab) 500 mg PO Q6H PRN PRN Reason: fever Last Admin: 05/22/21 17:23 Dose: 500 mg Documented by: Amlodipine Besylate (Amlodipine 5 Mg Tab) 5 mg PO BID [facility] Last Admin: 05/29/21 19:32 Dose: 5 mg Documented by: Benzonatate (Benzonatate 100 Mg Cap) 100 mg PO TID PRN PRN Reason: COUGH Last Admin: 05/23/21 08:37 Dose: 100 mg Documented by: Chlorphenir/Hydrocodone Polistirex (Hydrocodone/Chlorphen 5 Ml/Osyr) 5 ml PO BID PRN PRN Reason: COUGH Last Admin: 05/29/21 15:01 Dose: 5 ml Documented by: Cholecalciferol (Vitamin D 5,000 Unit Cap) 5,000 unit PO DAILY [facility] Last Admin: 05/29/21 08:00 Dose: 5,000 unit Documented by: Dexamethasone (Dexamethasone 4 Mg Tab) 2 mg PO BID [facility] Last Admin: 05/29/21 19:32 Dose: 2 mg Documented by: Dextrose (D50w 25 Gm/50 Ml Syringe) 12.5 gm IV PRN PRN; Protocol PRN Reason: HYPOGLYCEMIA Emollient Gel (Medihoney 44 Ml Topical Tube) 1 appl TOP DAILY [facility] Last Admin: 05/29/21 08:03 Dose: 1 kendra Documented by: Famotidine (Famotidine 20 Mg Tab) 20 mg PO DAILY [facility]; Protocol Last Admin: 05/29/21 08:00 Dose: 20 mg Documented by: Glucagon (Glucagon 1 Mg/Vial) 1 mg IM 1X PRN; Protocol PRN Reason: HYPOGLYCEMIA Guaifenesin (Guaifenesin 100 Mg/5 Ml Ucup) 100 mg FT QID PRN PRN Reason: COUGH Last Admin: 05/29/21 19:31 Dose: 100 mg Documented by: Heparin Sodium (Porcine) (Heparin 5000 Unit/Ml 1 Ml Vial) 5,000 unit SQ Q12HR [facility] Last Admin: 05/29/21 19:31 Dose: 5,000 unit Documented by: Heparin Sodium (Porcine) (Heparin 1,000 Unit/Ml Vial) 6,000 unit IV EVERY HD PRN PRN Reason: AFTER EACH Albumin Human (Albumin 25%) 50 mls @ 100 mls/hr IV EVERY HD SELMA Insulin Glargine (Insulin Glargine 100 Units/Ml) 10 units SQ BIDAC [facility] Last Admin: 05/29/21 16:22 Dose: 10 units Documented by: Insulin Human Regular (Insulin -Regular Human 50 Unit/0.5 Ml Ml) 0 unit SQ ACHS [facility]; Protocol Last Admin: 05/29/21 19:26 Dose: Not Given Documented by: Loperamide HCl (Loperamide Hcl 2 Mg Capsule) 2 mg PO Q2H PRN PRN Reason: DIARRHEA Last Admin: 05/29/21 19:32 Dose: 2 mg Documented by: Mannitol (Mannitol 25% 12.5 Gm/50 Ml Vial) 12.5 gm IV EVERY HD PRN PRN Reason: Titrate to SBP (MUST DEFINE) Nutritional Formula (Vital Af 1,000 Ml Bot) 0 ml RTH CONT SELMA Quetiapine Fumarate (Quetiapine 25 Mg Tab) 25 mg PO BID [facility] Last Admin: 05/29/21 19:32 Dose: 25 mg Documented by: Sterile Water (Water For Inj,Sterile 10 Ml) 1.2 ml IM UD PRN PRN Reason: DILUTION OF MED Last Admin: 05/25/21 13:45 Dose: 1.2 ml Documented by: Thiamine HCl (Thiamine 200 Mg/2 Ml Inj) 200 mg IVP BID [facility] Last Admin: 05/29/21 19:32 Dose: 200 mg Documented by: Ziprasidone (Ziprasidone Mesyla 20 Mg/Vial) 10 mg IM Q12H PRN PRN Reason: AGITATION Last Admin: 05/28/21 07:08 Dose: 10 mg Documented by: Microbiology Results 05/20/21 15:00 Blood - Blood Aerobic Blood Culture - Final No growth in 5 days. 05/20/21 15:00 Blood - Blood Anaerobic Blood Culture - Final No growth in 5 days. 05/20/21 14:45 Blood - Blood Aerobic Blood Culture - Final No growth in 5 days. 05/20/21 14:45 Blood - Blood Anaerobic Blood Culture - Final No growth in 5 days. Assessment/ Plan: Nephrology Progress Note Feeling better today. Weakness and fatigue. Improving dyspnea. No acute events overnight Vitals, medications blood work and imaging reviewed in the chart General: Awake HEENT: Atraumatic Neck: Supple Respiratory: Diminished Cardiovascular: No edema Gastrointestinal: Non-distended Musculoskeletal: No clubbing, No contractures Integumentary: No rashes, No cyanosis Neurological: Normal speech Greater than 30min patient care. Laboratory Data (last 24 hrs) 05/20/21 14:45: PT 12.9 H, INR 1.12, APTT 30.2 05/20/21 14:45: WBC 11.10 H D, Hgb 8.9 L, Hct 26.5 L, Plt Count 185 05/20/21 14:45: Sodium 139, Potassium 3.9, BUN 50 H D, Creatinine 12.00 H* D, Glucose 144 H, Total Bilirubin 0.5, AST 59 H, ALT 40, Alkaline Phosphatase 49, Amylase 158 H, Lipase 295 Imagings Data: EXAM DESCRIPTION: RAD - Chest Single View - 05/20/2021 3:36 pm CLINICAL HISTORY: code sepsis COMPARISON: Single-view chest May 16 TECHNIQUE: AP portable chest image was obtained 05/20/2021 3:36 pm . FINDINGS: Mid and lower lung field airspace opacification. There is relative sparing of each apex. Heart size is mildly enlarged. No vascular engorgement confirmed. No cavitation or focal mass. No measurable pleural effusion and no pneumothorax. No acute bony abnormality seen. No acute aortic findings suspected. IMPRESSION: Bilateral airspace opacification most likely pneumonia. COVID-19 pneumonia would be a primary consideration in the current clinical environment. Non COVID viral pneumonia and bilateral bacterial pneumonia are possible as well. Conclusions/Impression: ESRD -HD TIW -Acute HD tomorrow HTN -Continue Amlodipine BID Diastolic CHF -Low sodium diet DM II with CKD -RISS Moderate malnutrition -Encourage nutrition Anemia in CKD -Retacrit prn -Transfuse PRBC as needed CKD MBD Hypocalcemia -Continue Vitamin D3 COVID-19 PNA Acute hypoxic respiratory failure -Continue Oxygen -Wean steroids as tolerated Toxic metabolic encephalopathy -Continue COVID treatment
[2021-05-30] MEDS: HYDROCODONE/CHLORPHEN 5 ML/OSYR PO PRN ×2 (03:30→16:50)
[2021-05-30 04:49] LABS: Absolute Lymphocytes (CBC) 3.1 K/uL (0.7-4.9); Basophils % 0.7 % (0-1.3); Hematocrit 26.9 % (36.0-45.0); Lymphocytes % 15.2 % (15.3-44.8); MPV 9.6 fL (7.6-11.3)
[2021-05-30 05:17] LABS: Albumin 2.2 g/dL (3.4-5.0); Bilirubin Total 0.5 mg/dL (0.2-1.0); Potassium 5.2 mmol/L (3.5-5.1); Protein, Total 6.6 g/dL (6.4-8.2)
[2021-05-30 05:28] LABS: Blood Morphology Comment NOTED (NOT SEEN); Platelet Estimate ADEQ; Polychromasia 3+
[2021-05-30] MEDS: INSULIN -REGULAR HUMAN 50 UNIT/0.5 ML ML SQ SCH ×4 (07:30→20:17)
[2021-05-30] MEDS: INSULIN GLARGINE 100 UNITS/ML SQ SCH ×2 (07:30→16:51)
[2021-05-30] MEDS: MEDIHONEY 44 ML TOPICAL TUBE TOP SCH (08:04)
[2021-05-30] MEDS: guaiFENesin 100 MG/5 ML UCUP FT PRN ×3 (08:08→22:14)
[2021-05-30] MEDS: FAMOTIDINE 20 MG TAB PO SCH (08:08)
[2021-05-30] MEDS: LOPERAMIDE HCL 2 MG CAPSULE PO PRN ×3 (08:08→16:50)
[2021-05-30] MEDS: AMLODIPINE 5 MG TAB PO SCH ×2 (08:08→20:16)
[2021-05-30] MEDS: THIAMINE 200 MG/2 ML INJ IVP SCH ×2 (08:08→20:16)
[2021-05-30] MEDS: VITAMIN D 5,000 UNIT CAP PO SCH (08:09)
[2021-05-30] MEDS: QUETIAPINE 25 MG TAB PO SCH ×2 (08:10→20:16)
[2021-05-30] MEDS: HEPARIN 5000 UNIT/ML 1 ML VIAL SQ SCH ×2 (08:11→20:15)
[2021-05-30] MEDS: dexAMETHasone 4 MG TAB PO SCH ×2 (10:03→20:16)
--- NOTE | 2021-05-30 16:41 | P.PN ---
Subjective Date of Service: 05/30/21 Chief Complaint: COVID encepahlopathy Patient is more interactive today but still a bit confused. She obeys commands. She is now tolerating oral food. She is stable on 2 L oxygen by nasal cannula. Physical Examination - Vital Signs Temperature: 97 F Blood Pressure: 114/54 Pulse: 95 Respirations: 14 Pulse Ox (%): 93 - Physical Exam General: Confused, Other (Awake) HEENT: Mucous membr. moist/pink Neck: JVD not distended Respiratory: Other (Nonlabored breathing) Cardiovascular: No edema, Regular rate/rhythm, Normal S1 S2 Gastrointestinal: Normal bowel sounds, Soft and benign, Non-distended, No tenderness Musculoskeletal: No swelling Integumentary: No rashes Neurological: Normal strength at 5/5 x4 extr Assessment And Plan - Current Problems (Diagnosis) (1) Acute respiratory failure with hypoxia Current Visit: Yes Status: Acute (2) Pneumonia due to 2019 novel coronavirus Current Visit: Yes Status: Acute (3) Acute gastroenteritis Current Visit: Yes Status: Acute (4) End-stage renal disease on hemodialysis Current Visit: Yes Status: Acute (5) GERD (gastroesophageal reflux disease) Current Visit: No Status: Suspected Qualifiers: Esophagitis presence: esophagitis presence not specified Qualified Code(s): K21.9 - Gastro-esophageal reflux disease without esophagitis (6) Anemia in chronic kidney disease Current Visit: Yes Status: Acute - Plan Problem List Acute hypoxic respiratory failure secondary to COVID-19 pneumonia ESRD on HD Acute gastroenteritis GERD Anemia in chronic kidney disease Acute delirium /encephalopathy, likely secondary to Covid 19, possibly steroid- induced steroid induced hyperglycemia COVID-19 pneumonia/COVID encephalopathy Acute metabolic encephalopathy secondary to COVID-19 /acute delirium. Mental status is improving. COVID pneumonia acutely worsened few days ago, chest x-ray with worsening opacities. Respiratory status now improved. Patient is currently tolerating 2 L oxygen by nasal cannula. Continue steroids, vitamin supplementation Geodon as needed for agitation Continue Seroquel for agitation/psychosis. Acute gastroenteritis She has been having multiple episodes of loose stool/diarrhea. Improved after Dobbhoff/Imodium. Continue started oral feeding. Diarrhea improved Hyperglycemia Patient has steroid-induced hyperglycemia. Titrate insulin. ESRD on HD Nephrology is following. HD per nephrology. Code: full Disposition: Skilled rehab. Physician Review Additional Text: Physical Exam General: AAOx2, appears to be in moderate distress, confused HEENT: normal conjunctiva, sclera anicteric Respiratory: Nonlabored breathing on 2L NC, nonproductive cough Cardiovascular: No edema, sinus tachycardia Gastrointestinal: soft, non-distended Musculoskeletal: No swelling Integumentary: No rashes Problem List Acute hypoxic respiratory failure secondary to COVID-19 pneumonia ESRD on HD Acute gastroenteritis GERD Anemia in chronic kidney disease Acute delirium /encephalopathy, likely secondary to Covid 19, possibly steroid- induced Continue steroid (changed to p.o. on 05/24), vitamin supplementation, zinc supplementation. Pulm consulted C. diff negative, PO Vanc discontinued Patient seen by nephrology-Dr. Dunbar Hemodialysis per Dr. Dunbar. Monitor CBC and transfuse p.r.n. for hemoglobin less 8. Oxygen requirement improving Continues with her encephalopathy, seem to have some initial improvement, now moaning and groaning, appears to be in pain. Responds with "I do not know" when asked if she is having pain. Difficult to examine, maybe some slight tenderness in the abdomen, however patient was screaming throughout the exam, regardless of where I was palpating. Trying to avoid opioid medication, but will give low-dose morphine, seem to have been snowed with 2 mg IV the other day. Patient with excoriated superficial skin in the perirectal/perineal region, likely from all of the diarrhea. Patient is refusing p.o. medications at times. PT consulted -patient very weak, will discuss further with family today, given how functional she was prior to this and with her improving encephalopathy, inpatient rehab may be a better option Patient continues with COVID encephalopathy, refusing p.o. medications, will need to change p.o. steroids to IV Difficult to get accurate answers/exam from the patient. May benefit from Geodon Code: full Dispo: anticipate dc in 3-4 days, will discuss with family May be more appropriate for an LTAC/rehab
--- NOTE | 2021-05-30 19:13 | P.PN ---
Date of Service: 05/30/21 Vital Signs Temp Pulse Resp BP Pulse Ox 97 F 102 H 18 137/56 L 92 05/30/21 16:41 05/30/21 18:00 05/30/21 18:00 05/30/21 18:00 05/30/21 18:00 Medications Acetaminophen (Acetaminophen 500 Mg Tab) 500 mg PO Q6H PRN PRN Reason: fever Last Admin: 05/22/21 17:23 Dose: 500 mg Documented by: Amlodipine Besylate (Amlodipine 5 Mg Tab) 5 mg PO BID [facility] Last Admin: 05/30/21 08:08 Dose: 5 mg Documented by: Benzonatate (Benzonatate 100 Mg Cap) 100 mg PO TID PRN PRN Reason: COUGH Last Admin: 05/23/21 08:37 Dose: 100 mg Documented by: Chlorphenir/Hydrocodone Polistirex (Hydrocodone/Chlorphen 5 Ml/Osyr) 5 ml PO BID PRN PRN Reason: COUGH Last Admin: 05/30/21 16:50 Dose: 5 ml Documented by: Cholecalciferol (Vitamin D 5,000 Unit Cap) 5,000 unit PO DAILY [facility] Last Admin: 05/30/21 08:09 Dose: 5,000 unit Documented by: Dexamethasone (Dexamethasone 4 Mg Tab) 2 mg PO BID [facility] Last Admin: 05/30/21 10:03 Dose: 2 mg Documented by: Dextrose (D50w 25 Gm/50 Ml Syringe) 12.5 gm IV PRN PRN; Protocol PRN Reason: HYPOGLYCEMIA Emollient Gel (Medihoney 44 Ml Topical Tube) 1 appl TOP DAILY [facility] Last Admin: 05/30/21 08:04 Dose: 1 kendra Documented by: Famotidine (Famotidine 20 Mg Tab) 20 mg PO DAILY [facility]; Protocol Last Admin: 05/30/21 08:08 Dose: 20 mg Documented by: Glucagon (Glucagon 1 Mg/Vial) 1 mg IM 1X PRN; Protocol PRN Reason: HYPOGLYCEMIA Guaifenesin (Guaifenesin 100 Mg/5 Ml Ucup) 100 mg FT QID PRN PRN Reason: COUGH Last Admin: 05/30/21 16:50 Dose: 100 mg Documented by: Heparin Sodium (Porcine) (Heparin 5000 Unit/Ml 1 Ml Vial) 5,000 unit SQ Q12HR [facility] Last Admin: 05/30/21 08:11 Dose: 5,000 unit Documented by: Heparin Sodium (Porcine) (Heparin 1,000 Unit/Ml Vial) 6,000 unit IV EVERY HD PRN PRN Reason: AFTER EACH Albumin Human (Albumin 25%) 50 mls @ 100 mls/hr IV EVERY HD [facility] Insulin Glargine (Insulin Glargine 100 Units/Ml) 10 units SQ BIDAC [facility] Last Admin: 05/30/21 16:51 Dose: 10 units Documented by: Insulin Human Regular (Insulin -Regular Human 50 Unit/0.5 Ml Ml) 0 unit SQ ACHS [facility]; Protocol Last Admin: 05/30/21 16:50 Dose: 4 unit Documented by: Loperamide HCl (Loperamide Hcl 2 Mg Capsule) 2 mg PO Q2H PRN PRN Reason: DIARRHEA Last Admin: 05/30/21 16:50 Dose: 2 mg Documented by: Mannitol (Mannitol 25% 12.5 Gm/50 Ml Vial) 12.5 gm IV EVERY HD PRN PRN Reason: Titrate to SBP (MUST DEFINE) Nutritional Formula (Vital Af 1,000 Ml Bot) 0 ml RTH CONT [facility] Nutritional Formula (Ensure High Protein 237 Ml Can) 237 ml PO BID [facility] Quetiapine Fumarate (Quetiapine 25 Mg Tab) 25 mg PO BID [facility] Last Admin: 05/30/21 08:10 Dose: 25 mg Documented by: Sterile Water (Water For Inj,Sterile 10 Ml) 1.2 ml IM UD PRN PRN Reason: DILUTION OF MED Last Admin: 05/25/21 13:45 Dose: 1.2 ml Documented by: Thiamine HCl (Thiamine 200 Mg/2 Ml Inj) 200 mg IVP BID [facility] Last Admin: 05/30/21 08:08 Dose: 200 mg Documented by: Ziprasidone (Ziprasidone Mesyla 20 Mg/Vial) 10 mg IM Q12H PRN PRN Reason: AGITATION Last Admin: 05/28/21 07:08 Dose: 10 mg Documented by: Microbiology Results 05/20/21 15:00 Blood - Blood Aerobic Blood Culture - Final No growth in 5 days. 05/20/21 15:00 Blood - Blood Anaerobic Blood Culture - Final No growth in 5 days. 05/20/21 14:45 Blood - Blood Aerobic Blood Culture - Final No growth in 5 days. 05/20/21 14:45 Blood - Blood Anaerobic Blood Culture - Final No growth in 5 days. Assessment/ Plan: Nephrology Progress Note More awake today Weakness and fatigue. Fair appetite No acute events overnight Vitals, medications blood work and imaging reviewed in the chart General: Awake HEENT: Atraumatic Neck: Supple Respiratory: Diminished Cardiovascular: No edema Gastrointestinal: Non-distended Musculoskeletal: No clubbing, No contractures Integumentary: No rashes, No cyanosis Neurological: Normal speech Greater than 30min patient care. Laboratory Data (last 24 hrs) 05/20/21 14:45: PT 12.9 H, INR 1.12, APTT 30.2 05/20/21 14:45: WBC 11.10 H D, Hgb 8.9 L, Hct 26.5 L, Plt Count 185 05/20/21 14:45: Sodium 139, Potassium 3.9, BUN 50 H D, Creatinine 12.00 H* D, Glucose 144 H, Total Bilirubin 0.5, AST 59 H, ALT 40, Alkaline Phosphatase 49, Amylase 158 H, Lipase 295 Imagings Data: EXAM DESCRIPTION: RAD - Chest Single View - 05/20/2021 3:36 pm CLINICAL HISTORY: code sepsis COMPARISON: Single-view chest May 16 TECHNIQUE: AP portable chest image was obtained 05/20/2021 3:36 pm . FINDINGS: Mid and lower lung field airspace opacification. There is relative sparing of each apex. Heart size is mildly enlarged. No vascular engorgement confirmed. No cavitation or focal mass. No measurable pleural effusion and no pneumothorax. No acute bony abnormality seen. No acute aortic findings suspected. IMPRESSION: Bilateral airspace opacification most likely pneumonia. COVID-19 pneumonia would be a primary consideration in the current clinical environment. Non COVID viral pneumonia and bilateral bacterial pneumonia are possible as well. Conclusions/Impression: ESRD -HD TIW HTN -Continue Amlodipine BID Diastolic CHF -Low sodium diet DM II with CKD -RISS Moderate malnutrition -Encourage nutrition Anemia in CKD -Start Retacrit MWF -Transfuse PRBC as needed CKD MBD Hypocalcemia -Continue Vitamin D3 COVID-19 PNA Acute hypoxic respiratory failure -Continue Oxygen -Wean steroids as tolerated Toxic metabolic encephalopathy -Continue COVID treatment
[2021-05-30] MEDS: EPOETIN ALFA 10,000 UNIT/ML VIAL SQ SCH (20:00)
[2021-05-30] MEDS: ENSURE HIGH PROTEIN 237 ML CAN PO SCH (20:17)
[2021-05-30] MEDS ORDERED: EPOETIN ALFA-EPBX 10,000 UNIT/ML VIAL ONE (20:45)
[2021-05-31] MEDS: HYDROCODONE/CHLORPHEN 5 ML/OSYR PO PRN (03:57)
[2021-05-31 05:14] LABS: Absolute Lymphocytes (CBC) 1.5 K/uL (0.7-4.9); Basophils % 0.4 % (0-1.3); Hematocrit 27.2 % (36.0-45.0); Lymphocytes % 9.2 % (15.3-44.8); MPV 9.8 fL (7.6-11.3); RBC Red Blood Cell Count 2.81 M/uL (3.86-4.86)
[2021-05-31 06:17] LABS: Potassium 6.5 mmol/L (3.5-5.1)
[2021-05-31] MEDS: INSULIN GLARGINE 100 UNITS/ML SQ SCH ×2 (07:30→16:37)
[2021-05-31] MEDS: INSULIN -REGULAR HUMAN 50 UNIT/0.5 ML ML SQ SCH ×5 (07:30→20:36)
[2021-05-31] MEDS: HEPARIN 5000 UNIT/ML 1 ML VIAL SQ SCH ×2 (08:15→20:34)
[2021-05-31] MEDS: AMLODIPINE 5 MG TAB PO SCH ×2 (08:15→20:34)
[2021-05-31] MEDS: THIAMINE 200 MG/2 ML INJ IVP SCH ×2 (08:15→20:34)
[2021-05-31] MEDS: guaiFENesin 100 MG/5 ML UCUP FT PRN (08:15)
[2021-05-31] MEDS: QUETIAPINE 25 MG TAB PO SCH ×2 (08:16→20:33)
[2021-05-31] MEDS: FAMOTIDINE 20 MG TAB PO SCH (08:16)
[2021-05-31] MEDS: VITAMIN D 5,000 UNIT CAP PO SCH (08:17)
[2021-05-31] MEDS: MEDIHONEY 44 ML TOPICAL TUBE TOP SCH (08:17)
[2021-05-31] MEDS: dexAMETHasone 4 MG TAB PO SCH ×2 (08:17→20:33)
[2021-05-31] MEDS: ENSURE HIGH PROTEIN 237 ML CAN PO SCH ×2 (08:18→20:34)
[2021-05-31] MEDS ORDERED: NA CHLORIDE 0.9% 1,000 ML ONE (09:23)
--- NOTE | 2021-05-31 14:45 | P.PN ---
Subjective Date of Service: 05/31/21 Chief Complaint: COVID encepahlopathy Patient is doing much better today She is obeying simple commands She is eating well. She is stable on 2 L oxygen by nasal cannula. Physical Examination - Vital Signs Temperature: 97.6 F Blood Pressure: 154/74 Pulse: 105 Respirations: 20 Pulse Ox (%): 91 - Physical Exam General: In no apparent distress, Other (Awake and interactive) HEENT: Mucous membr. moist/pink Neck: JVD not distended Respiratory: Normal air movement, Diminished Cardiovascular: No edema, Normal S1 S2, Other (Tachycardia) Gastrointestinal: Soft and benign, Non-distended, No tenderness Musculoskeletal: No swelling Integumentary: No rashes Neurological: Other (No focal motor deficit.) Assessment And Plan - Current Problems (Diagnosis) (1) Acute respiratory failure with hypoxia Current Visit: Yes Status: Acute (2) Pneumonia due to 2019 novel coronavirus Current Visit: Yes Status: Acute (3) Acute gastroenteritis Current Visit: Yes Status: Acute (4) End-stage renal disease on hemodialysis Current Visit: Yes Status: Acute (5) GERD (gastroesophageal reflux disease) Current Visit: No Status: Suspected Qualifiers: Esophagitis presence: esophagitis presence not specified Qualified Code(s): K21.9 - Gastro-esophageal reflux disease without esophagitis (6) Anemia in chronic kidney disease Current Visit: Yes Status: Acute - Plan Problem List Acute hypoxic respiratory failure secondary to COVID-19 pneumonia ESRD on HD Acute gastroenteritis GERD Anemia in chronic kidney disease Acute delirium /encephalopathy, likely secondary to Covid 19, possibly steroid- induced steroid induced hyperglycemia COVID-19 pneumonia/COVID encephalopathy Acute metabolic encephalopathy secondary to COVID-19 /acute delirium. Mental status is improving. COVID pneumonia acutely worsened few days ago with chest x-ray showing worsening opacities. Respiratory status now improved. Patient is currently stable on 2 L oxygen by nasal cannula. Continue steroids, vitamin supplementation Geodon as needed for agitation Continue Seroquel for agitation/psychosis. Acute gastroenteritis She has been having multiple episodes of loose stool/diarrhea. Improved after Dobbhoff/Imodium. Diarrhea improved. The patient is tolerating oral feeding. Hyperglycemia Blood sugar level improved Continue current dose Lantus insulin and insulin sliding scale. ESRD on HD/hyperkalemia Nephrology is following. HD today to treat hyperkalemia. Routine hemodialysis per nephrology. Code: full Disposition: Skilled rehab. Physician Review Additional Text: Problem List Acute hypoxic respiratory failure secondary to COVID-19 pneumonia ESRD on HD Acute gastroenteritis GERD Anemia in chronic kidney disease Acute delirium /encephalopathy, likely secondary to Covid 19, possibly steroid-induced Continue steroid vitamin supplementation, zinc supplementation. Pulm is following C. diff negative, PO Vanc discontinued Patient seen by nephrology-Dr. Dunbar Hemodialysis per Dr. Dunbar. Monitor CBC and transfuse p.r.n. for hemoglobin less 8. Oxygen requirement improved and patient is tolerating 2 L oxygen by nasal cannula. Diarrhea resolved Continues with her encephalopathy, seem to have some initial improvement, now moaning and groaning, appears to be in pain. Responds with "I do not know" when asked if she is having pain. Difficult to examine, maybe some slight tenderness in the abdomen, however patient was screaming throughout the exam, regardless of where I was palpating. Trying to avoid opioid medication, but will give low-dose morphine, seem to have been snowed with 2 mg IV the other day. Patient with excoriated superficial skin in the perirectal/perineal region, likely from all of the diarrhea. Patient is refusing p.o. medications at times. PT consulted -patient very weak, will discuss further with family today, given how functional she was prior to this and with her improving encephalopathy, inpatient rehab may be a better option Patient continues with COVID encephalopathy, refusing p.o. medications, will need to change p.o. steroids to IV Difficult to get accurate answers/exam from the patient. May benefit from Tomasa Code: full Dispo: anticipate dc in 3-4 days, will discuss with family May be more appropriate for an LTAC/rehab
--- NOTE | 2021-05-31 19:56 | P.PN ---
Date of Service: 05/31/21 Vital Signs Temp Pulse Resp BP Pulse Ox 97.6 F 108 H 17 142/53 H 87 L 05/31/21 14:45 05/31/21 18:00 05/31/21 18:00 05/31/21 18:00 05/31/21 18:00 Medications Acetaminophen (Acetaminophen 500 Mg Tab) 500 mg PO Q6H PRN PRN Reason: fever Last Admin: 05/22/21 17:23 Dose: 500 mg Documented by: Amlodipine Besylate (Amlodipine 5 Mg Tab) 5 mg PO BID [facility] Last Admin: 05/31/21 08:15 Dose: 5 mg Documented by: Benzonatate (Benzonatate 100 Mg Cap) 100 mg PO TID PRN PRN Reason: COUGH Last Admin: 05/23/21 08:37 Dose: 100 mg Documented by: Chlorphenir/Hydrocodone Polistirex (Hydrocodone/Chlorphen 5 Ml/Osyr) 5 ml PO BID PRN PRN Reason: COUGH Last Admin: 05/31/21 03:57 Dose: 5 ml Documented by: Cholecalciferol (Vitamin D 5,000 Unit Cap) 5,000 unit PO DAILY [facility] Last Admin: 05/31/21 08:17 Dose: 5,000 unit Documented by: Dexamethasone (Dexamethasone 4 Mg Tab) 2 mg PO BID [facility] Last Admin: 05/31/21 08:17 Dose: 2 mg Documented by: Dextrose (D50w 25 Gm/50 Ml Syringe) 12.5 gm IV PRN PRN; Protocol PRN Reason: HYPOGLYCEMIA Emollient Gel (Medihoney 44 Ml Topical Tube) 1 appl TOP DAILY [facility] Last Admin: 05/31/21 08:17 Dose: 1 kendra Documented by: Epoetin Gilles (Epoetin Gilles 10,000 Unit/Ml Vial) 10,000 unit SQ M,W,F [facility] Last Admin: 05/30/21 20:00 Dose: 10,000 unit Documented by: Famotidine (Famotidine 20 Mg Tab) 20 mg PO DAILY [facility]; Protocol Last Admin: 05/31/21 08:16 Dose: 20 mg Documented by: Glucagon (Glucagon 1 Mg/Vial) 1 mg IM 1X PRN; Protocol PRN Reason: HYPOGLYCEMIA Guaifenesin (Guaifenesin 100 Mg/5 Ml Ucup) 100 mg FT QID PRN PRN Reason: COUGH Last Admin: 05/31/21 08:15 Dose: 100 mg Documented by: Heparin Sodium (Porcine) (Heparin 5000 Unit/Ml 1 Ml Vial) 5,000 unit SQ Q12HR [facility] Last Admin: 05/31/21 08:15 Dose: 5,000 unit Documented by: Heparin Sodium (Porcine) (Heparin 1,000 Unit/Ml Vial) 6,000 unit IV EVERY HD PRN PRN Reason: AFTER EACH Albumin Human (Albumin 25%) 50 mls @ 100 mls/hr IV EVERY HD [facility] Insulin Glargine (Insulin Glargine 100 Units/Ml) 10 units SQ BIDAC [facility] Last Admin: 05/31/21 16:37 Dose: 10 units Documented by: Insulin Human Regular (Insulin -Regular Human 50 Unit/0.5 Ml Ml) 0 unit SQ ACHS [facility]; Protocol Last Admin: 05/31/21 16:35 Dose: 6 unit Documented by: Loperamide HCl (Loperamide Hcl 2 Mg Capsule) 2 mg PO Q2H PRN PRN Reason: DIARRHEA Last Admin: 05/30/21 16:50 Dose: 2 mg Documented by: Mannitol (Mannitol 25% 12.5 Gm/50 Ml Vial) 12.5 gm IV EVERY HD PRN PRN Reason: Titrate to SBP (MUST DEFINE) Nutritional Formula (Vital Af 1,000 Ml Bot) 0 ml RTH CONT [facility] Nutritional Formula (Ensure High Protein 237 Ml Can) 237 ml PO BID [facility] Last Admin: 05/31/21 08:18 Dose: 237 ml Documented by: Quetiapine Fumarate (Quetiapine 25 Mg Tab) 25 mg PO BID [facility] Last Admin: 05/31/21 08:16 Dose: 25 mg Documented by: Sterile Water (Water For Inj,Sterile 10 Ml) 1.2 ml IM UD PRN PRN Reason: DILUTION OF MED Last Admin: 05/25/21 13:45 Dose: 1.2 ml Documented by: Thiamine HCl (Thiamine 200 Mg/2 Ml Inj) 200 mg IVP BID [facility] Last Admin: 05/31/21 08:15 Dose: 200 mg Documented by: Microbiology Results 05/20/21 15:00 Blood - Blood Aerobic Blood Culture - Final No growth in 5 days. 05/20/21 15:00 Blood - Blood Anaerobic Blood Culture - Final No growth in 5 days. 05/20/21 14:45 Blood - Blood Aerobic Blood Culture - Final No growth in 5 days. 05/20/21 14:45 Blood - Blood Anaerobic Blood Culture - Final No growth in 5 days. Assessment/ Plan: Nephrology Progress Note Feeling better. Weakness and fatigue. Fair appetite No acute events overnight Vitals, medications blood work and imaging reviewed in the chart General: Awake HEENT: Atraumatic Neck: Supple Respiratory: Diminished Cardiovascular: No edema Gastrointestinal: Non-distended Musculoskeletal: No clubbing, No contractures Integumentary: No rashes, No cyanosis Neurological: Normal speech Greater than 30min patient care. Laboratory Data (last 24 hrs) 05/20/21 14:45: PT 12.9 H, INR 1.12, APTT 30.2 05/20/21 14:45: WBC 11.10 H D, Hgb 8.9 L, Hct 26.5 L, Plt Count 185 05/20/21 14:45: Sodium 139, Potassium 3.9, BUN 50 H D, Creatinine 12.00 H* D, Glucose 144 H, Total Bilirubin 0.5, AST 59 H, ALT 40, Alkaline Phosphatase 49, Amylase 158 H, Lipase 295 Imagings Data: EXAM DESCRIPTION: RAD - Chest Single View - 05/20/2021 3:36 pm CLINICAL HISTORY: code sepsis COMPARISON: Single-view chest May 16 TECHNIQUE: AP portable chest image was obtained 05/20/2021 3:36 pm . FINDINGS: Mid and lower lung field airspace opacification. There is relative sparing of each apex. Heart size is mildly enlarged. No vascular engorgement confirmed. No cavitation or focal mass. No measurable pleural effusion and no pneumothorax. No acute bony abnormality seen. No acute aortic findings suspect ed. IMPRESSION: Bilateral airspace opacification most likely pneumonia. COVID-19 pneumonia would be a primary consideration in the current clinical environment. Non COVID viral pneumonia and bilateral bacterial pneumonia are possible as well. Conclusions/Impression: ESRD -HD TIW -Seen and examined on HD HTN -Continue Amlodipine BID Diastolic CHF -Low sodium diet DM II with CKD -RISS Moderate malnutrition -Encourage nutrition Anemia in CKD -Continue Retacrit MWF -Transfuse PRBC as needed CKD MBD Hypocalcemia -Continue Vitamin D3 COVID-19 PNA Acute hypoxic respiratory failure -Continue Oxygen -Wean steroids as tolerated Toxic metabolic encephalopathy -Continue COVID treatment
[2021-06-01 05:19] VITALS: BMI 29.5
[2021-06-01 05:44] LABS: Absolute Lymphocytes (CBC) 0.9 K/uL (0.7-4.9); Basophils % 0.2 % (0-1.3); Hematocrit 24.3 % (36.0-45.0); MPV 9.3 fL (7.6-11.3)
[2021-06-01 06:24] LABS: C-Reactive Protein 27.3 mg/L (<3.00); Ferritin 3305.4 ng/mL (8-388); Phosphorus 5.3 mg/dL (2.5-4.9)
[2021-06-01 06:27] LABS: Potassium 5.7 mmol/L (3.5-5.1)
[2021-06-01] MEDS: FAMOTIDINE 20 MG TAB PO SCH (08:09)
[2021-06-01] MEDS: AMLODIPINE 5 MG TAB PO SCH ×2 (08:09→21:00)
[2021-06-01] MEDS: dexAMETHasone 4 MG TAB PO SCH ×2 (08:09→21:17)
[2021-06-01] MEDS: INSULIN GLARGINE 100 UNITS/ML SQ SCH ×2 (08:11→16:52)
[2021-06-01] MEDS: INSULIN -REGULAR HUMAN 50 UNIT/0.5 ML ML SQ SCH ×4 (08:11→21:00)
[2021-06-01] MEDS: QUETIAPINE 25 MG TAB PO SCH ×2 (08:11→21:00)
[2021-06-01] MEDS: THIAMINE 200 MG/2 ML INJ IVP SCH ×2 (08:11→21:16)
[2021-06-01] MEDS: ENSURE HIGH PROTEIN 237 ML CAN PO SCH ×2 (08:15→21:00)
[2021-06-01] MEDS: MEDIHONEY 44 ML TOPICAL TUBE TOP SCH (08:16)
[2021-06-01] MEDS: HEPARIN 5000 UNIT/ML 1 ML VIAL SQ SCH ×2 (08:17→21:16)
[2021-06-01] MEDS: VITAMIN D 5,000 UNIT CAP PO SCH (08:26)
--- NOTE | 2021-06-01 12:42 | P.PN ---
Subjective Date of Service: 06/01/21 Chief Complaint: COVID encepahlopathy Patient has no complain today. She is obeying simple commands, and respond appropriately but slow to respond. She is eating well. She is stable on 1- 2 L oxygen by nasal cannula. Physical Examination - Vital Signs Temperature: 97.5 F Blood Pressure: 163/70 Pulse: 103 Respirations: 19 Pulse Ox (%): 91 - Physical Exam General: In no apparent distress, Other (Awake) HEENT: Mucous membr. moist/pink Neck: JVD not distended Respiratory: Other (Nonlabored breathing) Cardiovascular: Regular rate/rhythm, Normal S1 S2 Gastrointestinal: Soft and benign, Non-distended Musculoskeletal: No swelling Integumentary: No rashes Neurological: Normal strength at 5/5 x4 extr Assessment And Plan - Current Problems (Diagnosis) (1) Acute respiratory failure with hypoxia Current Visit: Yes Status: Acute (2) Pneumonia due to 2019 novel coronavirus Current Visit: Yes Status: Acute (3) Acute gastroenteritis Current Visit: Yes Status: Acute (4) End-stage renal disease on hemodialysis Current Visit: Yes Status: Acute (5) GERD (gastroesophageal reflux disease) Current Visit: No Status: Suspected Qualifiers: Esophagitis presence: esophagitis presence not specified Qualified Code(s): K21.9 - Gastro-esophageal reflux disease without esophagitis (6) Anemia in chronic kidney disease Current Visit: Yes Status: Acute - Plan Problem List Acute hypoxic respiratory failure secondary to COVID-19 pneumonia ESRD on HD Acute gastroenteritis GERD Anemia in chronic kidney disease Acute delirium /encephalopathy, likely secondary to Covid 19, possibly steroid- induced steroid induced hyperglycemia COVID-19 pneumonia/COVID encephalopathy Acute metabolic encephalopathy secondary to COVID-19 /acute delirium. Mental status continue to improve. Patient is responding appropriately today. Respiratory status improved. Patient is currently stable on 1-2 L oxygen by nasal cannula. Continue steroids, vitamin supplementation Continue Seroquel for agitation/psychosis. Acute gastroenteritis Diarrhea has improved. NG-tube removed. Patient is eating well. Hyperglycemia Blood sugar level improved Continue current dose Lantus insulin and insulin sliding scale. ESRD on HD/hyperkalemia Nephrology is following. Routine hemodialysis per nephrology. Impaired mobility Nurse also report patient is having difficulty using her hands. PT and occupational therapy. Code: full Disposition: Skilled rehab. Physician Review Additional Text: Problem List Acute hypoxic respiratory failure secondary to COVID-19 pneumonia ESRD on HD Acute gastroenteritis GERD Anemia in chronic kidney disease Acute delirium /encephalopathy, likely secondary to Covid 19, possibly steroid- induced Continue steroid vitamin supplementation, zinc supplementation. Pulm is following. Patient had diarrhea C. diff negative, PO Vanc discontinued. Diarrhea resolved Patient seen by nephrology-Dr. Dunbar Hemodialysis per Dr. Dunbar. Monitor CBC and transfuse p.r.n. for hemoglobin less 8. Oxygen requirement improved and patient is tolerating 1-2 L oxygen by nasal cannula. Continues with her encephalopathy, seem to have some initial improvement, now moaning and groaning, appears to be in pain. Responds with "I do not know" when asked if she is having pain. Difficult to examine, maybe some slight tenderness in the abdomen, however pat corinne was screaming throughout the exam, regardless of where I was palpating. Trying to avoid opioid medication, but will give low-dose morphine, seem to have been snowed with 2 mg IV the other day. Patient with excoriated superficial skin in the perirectal/perineal region, likely from all of the diarrhea. Patient is refusing p.o. medications at times. PT consulted -patient very weak, will discuss further with family today, given how functional she was prior to this and with her improving encephalopathy, inpatient rehab may be a better option Patient continues with COVID encephalopathy, refusing p.o. medications, will need to change p.o. steroids to IV Difficult to get accurate answers/exam from the patient. May benefit from Geodon Code: full Dispo: anticipate dc in 3-4 days, will discuss with family May be more appropriate for an LTAC/rehab
[2021-06-01] MEDS: LIDOCAINE/PRILOCAINE CREAM TOP SCH ×2 (16:52→17:49)
[2021-06-01] MEDS: EPOETIN ALFA 10,000 UNIT/ML VIAL SQ SCH (18:00)
--- NOTE | 2021-06-01 20:29 | P.PN ---
Date of Service: 06/01/21 Vital Signs Temp Pulse Resp BP Pulse Ox 98.2 F 103 H 18 144/60 H 94 06/01/21 16:00 06/01/21 18:00 06/01/21 18:00 06/01/21 18:00 06/01/21 18:00 Medications Acetaminophen (Acetaminophen 500 Mg Tab) 500 mg PO Q6H PRN PRN Reason: fever Last Admin: 05/22/21 17:23 Dose: 500 mg Documented by: Amlodipine Besylate (Amlodipine 5 Mg Tab) 5 mg PO BID [facility] Last Admin: 06/01/21 08:09 Dose: Not Given Documented by: Benzonatate (Benzonatate 100 Mg Cap) 100 mg PO TID PRN PRN Reason: COUGH Last Admin: 05/23/21 08:37 Dose: 100 mg Documented by: Chlorphenir/Hydrocodone Polistirex (Hydrocodone/Chlorphen 5 Ml/Osyr) 5 ml PO BID PRN PRN Reason: COUGH Last Admin: 05/31/21 03:57 Dose: 5 ml Documented by: Cholecalciferol (Vitamin D 5,000 Unit Cap) 5,000 unit PO DAILY [facility] Last Admin: 06/01/21 08:26 Dose: 5,000 unit Documented by: Dexamethasone (Dexamethasone 4 Mg Tab) 2 mg PO BID [facility] Last Admin: 06/01/21 08:09 Dose: 2 mg Documented by: Dextrose (D50w 25 Gm/50 Ml Syringe) 12.5 gm IV PRN PRN; Protocol PRN Reason: HYPOGLYCEMIA Emollient Gel (Medihoney 44 Ml Topical Tube) 1 appl TOP DAILY [facility] Last Admin: 06/01/21 08:16 Dose: 1 kendra Documented by: Epoetin Gilles (Epoetin Gilles 10,000 Unit/Ml Vial) 10,000 unit SQ M,W,F [facility] Last Admin: 06/01/21 18:00 Dose: 10,000 unit Documented by: Famotidine (Famotidine 20 Mg Tab) 20 mg PO DAILY [facility]; Protocol Last Admin: 06/01/21 08:09 Dose: 20 mg Documented by: Glucagon (Glucagon 1 Mg/Vial) 1 mg IM 1X PRN; Protocol PRN Reason: HYPOGLYCEMIA Guaifenesin (Guaifenesin 100 Mg/5 Ml Ucup) 100 mg FT QID PRN PRN Reason: COUGH Last Admin: 05/31/21 08:15 Dose: 100 mg Documented by: Heparin Sodium (Porcine) (Heparin 5000 Unit/Ml 1 Ml Vial) 5,000 unit SQ Q12HR [facility] Last Admin: 06/01/21 08:17 Dose: 5,000 unit Documented by: Heparin Sodium (Porcine) (Heparin 1,000 Unit/Ml Vial) 6,000 unit IV EVERY HD PRN PRN Reason: AFTER EACH Albumin Human (Albumin 25%) 50 mls @ 100 mls/hr IV EVERY HD [facility] Insulin Glargine (Insulin Glargine 100 Units/Ml) 10 units SQ BIDAC [facility] Last Admin: 06/01/21 16:52 Dose: 10 units Documented by: Insulin Human Regular (Insulin -Regular Human 50 Unit/0.5 Ml Ml) 0 unit SQ ACHS [facility]; Protocol Last Admin: 06/01/21 16:52 Dose: 4 unit Documented by: Loperamide HCl (Loperamide Hcl 2 Mg Capsule) 2 mg PO Q2H PRN PRN Reason: DIARRHEA Last Admin: 05/30/21 16:50 Dose: 2 mg Documented by: Mannitol (Mannitol 25% 12.5 Gm/50 Ml Vial) 12.5 gm IV EVERY HD PRN PRN Reason: Titrate to SBP (MUST DEFINE) Nutritional Formula (Vital Af 1,000 Ml Bot) 0 ml RTH CONT [facility] Nutritional Formula (Ensure High Protein 237 Ml Can) 237 ml PO BID [facility] Last Admin: 06/01/21 08:15 Dose: 237 ml Documented by: Quetiapine Fumarate (Quetiapine 25 Mg Tab) 25 mg PO BID [facility] Last Admin: 06/01/21 08:11 Dose: 25 mg Documented by: Sterile Water (Water For Inj,Sterile 10 Ml) 1.2 ml IM UD PRN PRN Reason: DILUTION OF MED Last Admin: 05/25/21 13:45 Dose: 1.2 ml Documented by: Thiamine HCl (Thiamine 200 Mg/2 Ml Inj) 200 mg IVP BID [facility] Last Admin: 06/01/21 08:11 Dose: 200 mg Documented by: Microbiology Results 05/20/21 15:00 Blood - Blood Aerobic Blood Culture - Final No growth in 5 days. 05/20/21 15:00 Blood - Blood Anaerobic Blood Culture - Final No growth in 5 days. 05/20/21 14:45 Blood - Blood Aerobic Blood Culture - Final No growth in 5 days. 05/20/21 14:45 Blood - Blood Anaerobic Blood Culture - Final No growth in 5 days. Assessment/ Plan: Nephrology Progress Note Feeling better. Weakness and fatigue. Fair appetite No acute events overnight Vitals, medications blood work and imaging reviewed in the chart General: Awake HEENT: Atraumatic Neck: Supple Respiratory: Diminished Cardiovascular: No edema Gastrointestinal: Non-distended Musculoskeletal: No clubbing, No contractures Integumentary: No rashes, No cyanosis Neurological: Normal speech Greater than 30min patient care. Laboratory Data (last 24 hrs) 05/20/21 14:45: PT 12.9 H, INR 1.12, APTT 30.2 05/20/21 14:45: WBC 11.10 H D, Hgb 8.9 L, Hct 26.5 L, Plt Count 185 05/20/21 14:45: Sodium 139, Potassium 3.9, BUN 50 H D, Creatinine 12.00 H* D, Glucose 144 H, Total Bilirubin 0.5, AST 59 H, ALT 40, Alkaline Phosphatase 49, Amylase 158 H, Lipase 295 Imagings Data: EXAM DESCRIPTION: RAD - Chest Single View - 05/20/2021 3:36 pm CLINICAL HISTORY: code sepsis COMPARISON: Single-view chest May 16 TECHNIQUE: AP portable chest image was obtained 05/20/2021 3:36 pm . FINDINGS: Mid and lower lung field airspace opacification. There is relative sparing of each apex. Heart size is mildly enlarged. No vascular engorgement confirmed. No cavitation or focal mass. No measurable pleural effusion and no pneumothorax. No acute bony abnormality seen. No acute aortic findings plaoma pected. IMPRESSION: Bilateral airspace opacification most likely pneumonia. COVID-19 pneumonia would be a primary consideration in the current clinical environment. Non COVID viral pneumonia and bilateral bacterial pneumonia are possible as well. Conclusions/Impression: ESRD -HD TIW -Seen and examined at the start of HD Hyperkalemia -Low potassium diet -HD TIW HTN -Continue Amlodipine BID Diastolic CHF -Low sodium diet DM II with CKD -RISS Moderate malnutrition -Encourage nutrition Anemia in CKD -Continue Retacrit MWF -Transfuse PRBC as needed CKD MBD Hypocalcemia -Continue Vitamin D3 COVID-19 PNA Acute hypoxic respiratory failure -Continue Oxygen -Wean steroids as tolerated Toxic metabolic encephalopathy -Continue COVID treatment
[2021-06-02 05:44] LABS: Absolute Lymphocytes (CBC) 0.8 K/uL (0.7-4.9); Basophils % 0.2 % (0-1.3); Hematocrit 26.5 % (36.0-45.0); Lymphocytes % 6.2 % (15.3-44.8); MPV 9.7 fL (7.6-11.3); RBC Red Blood Cell Count 2.71 M/uL (3.86-4.86)
[2021-06-02 06:25] LABS: C-Reactive Protein 19.8 mg/L (<3.00); Ferritin 3001.6 ng/mL (8-388); Potassium 5.1 mmol/L (3.5-5.1)
[2021-06-02] MEDS: INSULIN GLARGINE 100 UNITS/ML SQ SCH (07:30)
[2021-06-02] MEDS: INSULIN -REGULAR HUMAN 50 UNIT/0.5 ML ML SQ SCH ×4 (07:30→20:40)
[2021-06-02] MEDS: ENSURE HIGH PROTEIN 237 ML CAN PO SCH ×2 (09:00→20:40)
[2021-06-02] MEDS: MEDIHONEY 44 ML TOPICAL TUBE TOP SCH (09:00)
[2021-06-02] MEDS: dexAMETHasone 4 MG TAB PO SCH ×2 (09:24→20:39)
[2021-06-02] MEDS: QUETIAPINE 25 MG TAB PO SCH ×2 (09:24→20:39)
[2021-06-02] MEDS: AMLODIPINE 5 MG TAB PO SCH ×2 (09:24→20:39)
[2021-06-02] MEDS: VITAMIN D 5,000 UNIT CAP PO SCH (09:24)
[2021-06-02] MEDS: HEPARIN 5000 UNIT/ML 1 ML VIAL SQ SCH ×2 (09:25→20:40)
[2021-06-02] MEDS: THIAMINE 200 MG/2 ML INJ IVP SCH ×2 (09:25→20:40)
[2021-06-02] MEDS: FAMOTIDINE 20 MG TAB PO SCH (09:26)
[2021-06-02] MEDS ORDERED: INSULIN GLARGINE 100 UNITS/ML SQ SCH (10:00)
--- NOTE | 2021-06-02 12:34 | P.PN ---
Subjective Date of Service: 06/02/21 Chief Complaint: COVID encepahlopathy Patient has no complain today. She is obeying simple commands, and respond appropriately. No issues overnight. She is currently on 1 L oxygen by nasal canula. Physical Examination - Vital Signs Temperature: 96.9 F Blood Pressure: 152/61 Pulse: 89 Respirations: 17 Pulse Ox (%): 96 - Physical Exam General: In no apparent distress, Other (Obey commands) HEENT: Mucous membr. moist/pink Neck: JVD not distended Respiratory: Other (Nonlabored breathing) Cardiovascular: Regular rate/rhythm, Normal S1 S2 Gastrointestinal: Normal bowel sounds, Soft and benign, Non-distended Musculoskeletal: No swelling Integumentary: No rashes Neurological: Other (No focal motor deficit.) Assessment And Plan - Current Problems (Diagnosis) (1) Acute respiratory failure with hypoxia Current Visit: Yes Status: Acute (2) Pneumonia due to 2019 novel coronavirus Current Visit: Yes Status: Acute (3) Acute gastroenteritis Current Visit: Yes Status: Acute (4) End-stage renal disease on hemodialysis Current Visit: Yes Status: Acute (5) GERD (gastroesophageal reflux disease) Current Visit: No Status: Suspected Qualifiers: Esophagitis presence: esophagitis presence not specified Qualified Code(s): K21.9 - Gastro-esophageal reflux disease without esophagitis (6) Anemia in chronic kidney disease Current Visit: Yes Status: Acute - Plan Problem List Acute hypoxic respiratory failure secondary to COVID-19 pneumonia ESRD on HD Acute gastroenteritis GERD Anemia in chronic kidney disease Acute delirium /encephalopathy, likely secondary to Covid 19, possibly steroid- induced steroid induced hyperglycemia COVID-19 pneumonia/COVID encephalopathy Acute metabolic encephalopathy secondary to COVID-19 /acute delirium. Mental status continue to improve. Patient obey commands and respond appropriately. Respiratory status improved. Patient is currently stable on 1 L oxygen by nasal cannula. Continue steroids, vitamin supplementation Continue Seroquel for agitation/psychosis. Acute gastroenteritis Diarrhea has improved. NG-tube removed. Patient is eating well. Hyperglycemia Blood sugar level improved. Patient was hypoglycemic this morning. Continue insulin sliding scale. Hold Lantus insulin today. ESRD on HD/hyperkalemia Nephrology is following. Routine hemodialysis per nephrology. Impaired mobility Nurse reported patient is having difficulty using her hands. She was trying to eat by herself. PT and occupational therapy. Code: full Disposition: Skilled rehab.
[2021-06-02] MEDS ORDERED: SOD POLYSTYREN SUL 15 GM/60 ML UCUP PO ONE (14:00)
--- NOTE | 2021-06-02 15:07 | PN ---
Subjective: The patient is seen in intensive care unit room #7. The patient is a 76-year-old female . The patient is alert, awake, on oxygen, but saturating well in about 96% range, comfortable. Dustin es any nausea or vomiting, is able to tolerate some p.o. intake. Had dialysis repeat yesterday night . Has had dialysis the day prior as well, was able to get about 500 cc off. She did not have any bl eeding or difficulty with dialysis. Currently, she is improved, is able to answer some questions. H er breathing is better. Being treated for COVID on steroids in ICU still with close monitoring. Objective: Vital Signs: Stable. Blood pressure is running in the 110 to 150 range for systolic. H er O2 sats are 96% off oxygen, 97% to 98% on 1 L nasal cannula. Pulse is about 80 and regular. She is afebrile. Respirations are around 14 and comfortable. Lungs: Clear to auscultation. Abdomen: Soft. Extremities: Do not reveal any significant edema. Trace edema at best at the ankles. Cardiac: Heart rate is regular at about 80 on my exam. Laboratory Data: Reviewed. Labs show WBC count of 13.3. This is a significant improvement from a f ew days back when it was 20,600 on May 30. Yesterday, the WBC count was 14.7, hemoglobin is impro victorino slightly from yesterday to 8.6, hematocrit is 26.5, and platelet count is 178. Chemistries revea l sodium 139, potassium 5.1, chloride 108, bicarb is 25, BUN is 72, and creatinine is 4.87. C-reacti ve protein is 19.8. Assessment And Plan: The patient is an elderly female, who requires dialysis, has been doing overall well. Fistula is working okay with no significant bleeding now. The patient has had treatment done last night, had about 500 cc of additional infiltration. The potassium is reasonable, but slightly on the higher side at 5.1 and dialyzing the patient again next week. I will go ahead and give her Ka yexalate 15 g x1 now. Repeat BMP is already ordered on a daily basis. If potassium continues to sta y above 5, may consider using another Kayexalate dose tomorrow. The patient has had two dialysis lanie atments in a row, Friday and Friday, and her p.o. intake has been overall poor. Her volume status is close to euvolemic. Continue COVID treatment. Continues to be still quite guarded in that sense with significant shortness of breath overall improved, however. /JOSE Voice ID: [id number] Report ID: [id number]
[2021-06-02] MEDS: ACETAMINOPHEN 500 MG TAB PO PRN ×2 (15:12→20:51)
[2021-06-03 05:00] LABS: Absolute Lymphocytes (CBC) 0.9 K/uL (0.7-4.9); Basophils % 0.2 % (0-1.3); Hematocrit 28.8 % (36.0-45.0); MPV 9.8 fL (7.6-11.3); RBC Red Blood Cell Count 2.93 M/uL (3.86-4.86)
[2021-06-03 06:00] LABS: C-Reactive Protein 18.2 mg/L (<3.00); Ferritin 3010.8 ng/mL (8-388)
[2021-06-03 06:02] LABS: Potassium 6.7 mmol/L (3.5-5.1)
[2021-06-03] MEDS: INSULIN -REGULAR HUMAN 50 UNIT/0.5 ML ML SQ SCH ×4 (06:20→20:14)
[2021-06-03] MEDS: QUETIAPINE 25 MG TAB PO SCH ×2 (08:08→20:13)
[2021-06-03] MEDS: dexAMETHasone 4 MG TAB PO SCH ×2 (08:08→20:13)
[2021-06-03 08:09] LABS: Anisocytosis SLIGHT; Blood Morphology Comment NOTED (NOT SEEN); Platelet Estimate ADEQ
[2021-06-03] MEDS: FAMOTIDINE 20 MG TAB PO SCH (08:09)
[2021-06-03] MEDS: AMLODIPINE 5 MG TAB PO SCH ×2 (08:09→20:12)
[2021-06-03] MEDS: VITAMIN D 5,000 UNIT CAP PO SCH (08:10)
[2021-06-03] MEDS: THIAMINE 200 MG/2 ML INJ IVP SCH ×2 (08:10→20:12)
[2021-06-03] MEDS: HEPARIN 5000 UNIT/ML 1 ML VIAL SQ SCH ×2 (08:10→20:12)
[2021-06-03] MEDS: ENSURE HIGH PROTEIN 237 ML CAN PO SCH ×2 (08:11→20:14)
[2021-06-03] MEDS: MEDIHONEY 44 ML TOPICAL TUBE TOP SCH (08:12)
[2021-06-03] MEDS ORDERED: INSULIN GLARGINE 100 UNITS/ML SQ SCH (09:00)
[2021-06-03] MEDS ORDERED: NA CHLORIDE 0.9% 1,000 ML ONE (10:51)
--- NOTE | 2021-06-03 11:53 | P.PN ---
Subjective Date of Service: 06/03/21 Chief Complaint: COVID encepahlopathy Patient has no complain today. She is participating more in physical therapy. No issues overnight. Stable on 1 L oxygen by nasal canula. Physical Examination - Vital Signs Temperature: 96.9 F Blood Pressure: 146/61 Pulse: 98 Respirations: 19 Pulse Ox (%): 92 - Physical Exam General: In no apparent distress, Other (Awake) HEENT: Mucous membr. moist/pink Neck: JVD not distended Respiratory: Other (Nonlabored breathing) Gastrointestinal: Soft and benign, Non-distended Musculoskeletal: No swelling Integumentary: No rashes Neurological: Other (No focal motor deficits) Assessment And Plan - Current Problems (Diagnosis) (1) Acute respiratory failure with hypoxia Current Visit: Yes Status: Acute (2) Pneumonia due to 2019 novel coronavirus Current Visit: Yes Status: Acute (3) Acute gastroenteritis Current Visit: Yes Status: Acute (4) End-stage renal disease on hemodialysis Current Visit: Yes Status: Acute (5) GERD (gastroesophageal reflux disease) Current Visit: No Status: Suspected Qualifiers: Esophagitis presence: esophagitis presence not specified Qualified Code(s): K21.9 - Gastro-esophageal reflux disease without esophagitis (6) Anemia in chronic kidney disease Current Visit: Yes Status: Acute - Plan Problem List Acute hypoxic respiratory failure secondary to COVID-19 pneumonia ESRD on HD Acute gastroenteritis GERD Anemia in chronic kidney disease Acute delirium /encephalopathy, likely secondary to Covid 19, possibly steroid- induced steroid induced hyperglycemia COVID-19 pneumonia/COVID encephalopathy Acute metabolic encephalopathy secondary to COVID-19 /acute delirium. Mental status significantly improved. Patient obey commands and respond appropriately. Respiratory status improved. Patient is stable on 1 L oxygen by nasal cannula. Continue steroids, vitamin supplementation Continue Seroquel for agitation/psychosis. Acute gastroenteritis Resolved. NG-tube removed. Patient is eating well. Hyperglycemia Blood sugar level improved. Blood sugar within acceptable range. Continue insulin sliding scale. Continue to hold Lantus insulin. ESRD on HD/hyperkalemia Nephrology is following. Routine hemodialysis per nephrology. Impaired mobility Nurse reported patient is having difficulty using her hands. She was trying to eat by herself. PT and occupational therapy. Evaluation for inpatient rehab. Code: full Disposition: Skilled rehab.
[2021-06-04 04:15] LABS: Absolute Lymphocytes (CBC) 0.9 K/uL (0.7-4.9); Basophils % 0.2 % (0-1.3); Hematocrit 25.3 % (36.0-45.0); MPV 9.7 fL (7.6-11.3); RBC Red Blood Cell Count 2.59 M/uL (3.86-4.86)
[2021-06-04 04:59] LABS: C-Reactive Protein 13.4 mg/L (<3.00); Ferritin 2596.6 ng/mL (8-388); Potassium 5.5 mmol/L (3.5-5.1)
[2021-06-04] MEDS: INSULIN -REGULAR HUMAN 50 UNIT/0.5 ML ML SQ SCH ×4 (08:36→21:00)
[2021-06-04] MEDS: VITAMIN D 5,000 UNIT CAP PO SCH (08:36)
[2021-06-04] MEDS: QUETIAPINE 25 MG TAB PO SCH ×2 (08:36→20:53)
[2021-06-04] MEDS: AMLODIPINE 5 MG TAB PO SCH ×2 (08:37→20:53)
[2021-06-04] MEDS: dexAMETHasone 4 MG TAB PO SCH ×2 (08:37→21:00)
[2021-06-04] MEDS: HEPARIN 5000 UNIT/ML 1 ML VIAL SQ SCH ×2 (08:38→20:56)
[2021-06-04] MEDS: FAMOTIDINE 20 MG TAB PO SCH (08:38)
[2021-06-04] MEDS: THIAMINE 200 MG/2 ML INJ IVP SCH ×2 (08:38→20:56)
[2021-06-04] MEDS: ENSURE HIGH PROTEIN 237 ML CAN PO SCH ×2 (08:39→20:59)
[2021-06-04] MEDS: MEDIHONEY 44 ML TOPICAL TUBE TOP SCH (08:40)
[2021-06-04] MEDS: EPOETIN ALFA 10,000 UNIT/ML VIAL SQ SCH (17:00)
--- NOTE | 2021-06-04 17:00 | P.PN ---
Subjective Date of Service: 06/04/21 Chief Complaint: COVID encepahlopathy Patient has no complain today. No issues overnight. She is stable on 1 L oxygen by nasal canula. Physical Examination - Vital Signs Temperature: 97.7 F Blood Pressure: 131/66 Pulse: 106 Respirations: 24 Pulse Ox (%): 92 - Physical Exam General: In no apparent distress, Other (She is interacting appropriately.) Neck: JVD not distended Respiratory: Other (Nonlabored breathing) Cardiovascular: Regular rate/rhythm, Normal S1 S2 Gastrointestinal: Soft and benign, Non-distended Musculoskeletal: No swelling Integumentary: No rashes, No breakdown Neurological: Normal strength at 5/5 x4 extr Assessment And Plan - Current Problems (Diagnosis) (1) Acute respiratory failure with hypoxia Current Visit: Yes Status: Acute (2) Pneumonia due to 2019 novel coronavirus Current Visit: Yes Status: Acute (3) Acute gastroenteritis Current Visit: Yes Status: Acute (4) End-stage renal disease on hemodialysis Current Visit: Yes Status: Acute (5) GERD (gastroesophageal reflux disease) Current Visit: No Status: Suspected Qualifiers: Esophagitis presence: esophagitis presence not specified Qualified Code(s): K21.9 - Gastro-esophageal reflux disease without esophagitis (6) Anemia in chronic kidney disease Current Visit: Yes Status: Acute - Plan Problem List Acute hypoxic respiratory failure secondary to COVID-19 pneumonia ESRD on HD Acute gastroenteritis GERD Anemia in chronic kidney disease Acute delirium /encephalopathy, likely secondary to Covid 19, possibly steroid- induced steroid induced hyperglycemia COVID-19 pneumonia/COVID encephalopathy Acute metabolic encephalopathy secondary to COVID-19 /acute delirium. Mental status significantly improved. Patient obey commands and respond appropriately. Respiratory status improved. Patient is stable on 1 L oxygen by nasal cannula. Continue steroids, vitamin supplementation Continue Seroquel for agitation/psychosis. Acute gastroenteritis Resolved. NG-tube removed. Patient is eating well. Hyperglycemia Blood sugar level improved. Blood sugar within acceptable range. Patient is eating well. Continue insulin sliding scale. Lantus insulin. ESRD on HD/hyperkalemia Nephrology is following. Routine hemodialysis per nephrology. Impaired mobility Nurse reported patient is having difficulty using her hands. She was trying to eat by herself. PT and occupational therapy. Evaluation for inpatient rehab. Anemia of chronic kidney disease Monitor CBC to follow hemoglobin Transfuse p.r.n. for hemoglobin less than 7 Code: full Disposition: Awaiting insurance authorization for inpatient rehab Physician Review Additional Text: Problem List Acute hypoxic respiratory failure secondary to COVID-19 pneumonia ESRD on HD Acute gastroenteritis GERD Anemia in chronic kidney disease Acute delirium /encephalopathy, likely secondary to Covid 19, possibly steroid- induced Continue steroid vitamin supplementation, zinc supplementation. Pulm is following. Patient had diarrhea C. diff negative, PO Vanc discontinued. Diarrhea resolved Patient seen by nephrology-Dr. Dunbar Hemodialysis per Dr. Dunbar. Monitor CBC and transfuse p.r.n. for hemoglobin less 8. Oxygen requirement improved and patient is tolerating 1-2 L oxygen by nasal cannula. Continues with her encephalopathy, seem to have some initial improvement, now moaning and groaning, appears to be in pain. Responds with "I do not know" when asked if she is having pain. Difficult to examine, maybe some slight tenderness in the abdomen, however patient was screaming throughout the exam, regardless of where I was palpating. Trying to avoid opioid medication, but will give low-dose morphine, seem to have been snowed with 2 mg IV the other day. Patient with excoriated superficial skin in the perirectal/perineal region, likely from all of the diarrhea. Patient is refusing p.o. medications at times. PT consulted -patient very weak, will discuss further with family today, given how functional she was prior to this and with her improving encephalopathy, inpatient rehab may be a better option Patient continues with COVID encephalopathy, refusing p.o. medications, will ne ed to change p.o. steroids to IV Difficult to get accurate answers/exam from the patient. May benefit from Tomasa Code: full Dispo: anticipate dc in 3-4 days, will discuss with family May be more appropriate for an LTAC/rehab
[2021-06-05 04:31] LABS: Absolute Lymphocytes (CBC) 0.8 K/uL (0.7-4.9); Basophils % 0.6 % (0-1.3); Hematocrit 27.1 % (36.0-45.0); Lymphocytes % 9.2 % (15.3-44.8); MPV 9.6 fL (7.6-11.3); RBC Red Blood Cell Count 2.78 M/uL (3.86-4.86)
[2021-06-05 05:05] LABS: ALT/SGPT 31 U/L (12-78); AST/SGOT 22 U/L (15-37); Albumin 2.2 g/dL (3.4-5.0); Alkaline Phosphatase 83 U/L (45-117); BUN Blood Urea Nitrogen 57 mg/dL (7-18); Bicarbonate 27 mmol/L (21-32); Bilirubin Direct < 0.1 mg/dL (0-0.2); Bilirubin Total 0.3 mg/dL (0.2-1.0); Ferritin 2661.9 ng/mL (8-388); Glucose Level 229 mg/dL (74-106); Magnesium 1.9 mg/dL (1.8-2.4); Phosphorus 4.7 mg/dL (2.5-4.9); Potassium 4.9 mmol/L (3.5-5.1); Protein, Total 6.1 g/dL (6.4-8.2); Sodium Level 135 mmol/L (136-145)
[2021-06-05] MEDS: INSULIN -REGULAR HUMAN 50 UNIT/0.5 ML ML SQ SCH ×4 (08:28→20:23)
[2021-06-05] MEDS: THIAMINE 200 MG/2 ML INJ IVP SCH ×2 (08:28→20:21)
[2021-06-05] MEDS: HEPARIN 5000 UNIT/ML 1 ML VIAL SQ SCH ×2 (08:28→20:23)
[2021-06-05] MEDS: dexAMETHasone 4 MG TAB PO SCH ×2 (08:29→20:22)
[2021-06-05] MEDS: VITAMIN D 5,000 UNIT CAP PO SCH (08:29)
[2021-06-05] MEDS: FAMOTIDINE 20 MG TAB PO SCH (08:29)
[2021-06-05] MEDS: QUETIAPINE 25 MG TAB PO SCH ×2 (08:29→20:23)
[2021-06-05] MEDS: MEDIHONEY 44 ML TOPICAL TUBE TOP SCH (08:30)
[2021-06-05] MEDS: AMLODIPINE 5 MG TAB PO SCH ×2 (08:30→20:21)
[2021-06-05] MEDS: ENSURE HIGH PROTEIN 237 ML CAN PO SCH ×2 (08:30→20:23)
--- NOTE | 2021-06-05 13:07 | P.PN ---
Date of Service: 06/05/21 Subjective Doing better this morning, more alert/oriented. Able to have a meaningful conversation. Does not recall events where she was in the ICU Denies any pain, denies diarrhea Reports generalized weakness, low energy, minimal shortness of breath Review of Systems 10 point review of systems otherwise negative Physical Examination General: AOx3, NAD HEENT: normal conjunctiva, sclera anicteric Respiratory: Nonlabored breathing on 1L NC, nonproductive cough Cardiovascular: No edema, regular rate/rhythm Gastrointestinal: soft, non-distended, non-tender Musculoskeletal: No swelling Problem List Acute hypoxic respiratory failure secondary to COVID-19 pneumonia ESRD on HD Acute gastroenteritis GERD Anemia in chronic kidney disease Acute delirium /encephalopathy, likely secondary to Covid 19, possibly steroid- induced steroid induced hyperglycemia COVID-19 pneumonia Acute encephalopathy secondary to COVID-19 Acute metabolic encephalopathy secondary to COVID-19 /acute delirium - much improved pulm following, down to 1-2 L NC, on steroids. vitamin supplementation avoid opioids-worsened encephalopathy Acute gastroenteritis, resolved Earlier hospitalization, had multiple episodes of loose stool/diarrhea. Improved with Imodium Steroid-induced hyperglycemia, titrate insulin for better control ESRD on HD Nephrology consulted, HD per their recommendations Code: full Dispo: awaiting insurance auth for inpatient rehab patient seems very motivated. was independent and well functioning prior to COVID / this hospitalization Time 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
[2021-06-05] MEDS ORDERED: TRAMADOL HCL 50 MG TAB PO PRN (20:41)
[2021-06-06 03:51] LABS: Hematocrit 27.7 % (36.0-45.0); MPV 9.7 fL (7.6-11.3); RBC Red Blood Cell Count 2.81 M/uL (3.86-4.86)
[2021-06-06 04:23] LABS: Albumin 2.4 g/dL (3.4-5.0); Magnesium 2.1 mg/dL (1.8-2.4); Phosphorus 5.8 mg/dL (2.5-4.9)
[2021-06-06 04:29] LABS: Potassium 6.8 mmol/L (3.5-5.1)
[2021-06-06] MEDS ORDERED: SOD POLYSTYREN SUL 15 GM/60 ML UCUP PO ONE (05:00)
[2021-06-06] MEDS: INSULIN -REGULAR HUMAN 50 UNIT/0.5 ML ML SQ SCH ×4 (07:38→20:53)
[2021-06-06] MEDS: THIAMINE 200 MG/2 ML INJ IVP SCH ×2 (07:38→20:57)
[2021-06-06] MEDS: QUETIAPINE 25 MG TAB PO SCH ×2 (07:38→20:52)
[2021-06-06] MEDS: HEPARIN 5000 UNIT/ML 1 ML VIAL SQ SCH ×2 (07:38→20:52)
[2021-06-06] MEDS: FAMOTIDINE 20 MG TAB PO SCH (07:38)
[2021-06-06] MEDS: AMLODIPINE 5 MG TAB PO SCH ×2 (07:39→20:52)
[2021-06-06] MEDS: dexAMETHasone 4 MG TAB PO SCH ×2 (07:39→20:52)
[2021-06-06] MEDS: VITAMIN D 5,000 UNIT CAP PO SCH (07:39)
[2021-06-06] MEDS: ENSURE HIGH PROTEIN 237 ML CAN PO SCH (07:40)
[2021-06-06] MEDS: MEDIHONEY 44 ML TOPICAL TUBE TOP SCH (07:40)
--- NOTE | 2021-06-06 16:27 | P.PN ---
Date of Service: 06/06/21 Subjective No acute events overnight. patient states she is feeling better every day Worked briefly with physical therapy yesterday. States she is motivated to go home Review of Systems 10 point review of systems otherwise negative Physical Examination General: AOx3, NAD HEENT: normal conjunctiva, sclera anicteric Respiratory: Nonlabored breathing on 1L NC, nonproductive cough Cardiovascular: No edema, regular rate/rhythm Gastrointestinal: soft, non-distended, non-tender Musculoskeletal: No swelling Neuro: generalized weakness Problem List Acute hypoxic respiratory failure secondary to COVID-19 pneumonia ESRD on HD Hyperkalemia Acute gastroenteritis GERD Anemia in chronic kidney disease Acute delirium /encephalopathy, likely secondary to Covid 19, possibly steroid- induced steroid induced hyperglycemia Debility COVID-19 pneumonia Acute encephalopathy secondary to COVID-19 Acute metabolic encephalopathy secondary to COVID-19 /acute delirium - much improved pulm following, down to 1-2 L NC, on steroids. vitamin supplementation avoid opioids-worsened encephalopathy Acute gastroenteritis, resolved Earlier in hospitalization, had multiple episodes of loose stool/diarrhea. Improved with Imodium Steroid-induced hyperglycemia, titrate insulin for better control ESRD on HD Hyperkalemia Nephrology consulted, HD per their recommendations Kayexalate given this morning. Nephrology to start scheduled Kayexalate Code: full Dispo: awaiting insurance auth for inpatient rehab patient seems very motivated. was independent and well functioning prior to COVID / this hospitalization Time 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
[2021-06-06] MEDS: EPOETIN ALFA 10,000 UNIT/ML VIAL SQ SCH (16:54)
[2021-06-06 18:34] LABS: HBsAG Nonreactive (Nonreactive)
--- NOTE | 2021-06-06 19:54 | P.PN ---
Date of Service: 06/06/21 Vital Signs Temp Pulse Resp BP Pulse Ox 97.0 F 98 H 18 125/60 90 L 06/06/21 16:00 06/06/21 16:00 06/06/21 16:00 06/06/21 16:00 06/06/21 16:00 Medications Acetaminophen (Acetaminophen 500 Mg Tab) 500 mg PO Q6H PRN PRN Reason: fever Last Admin: 06/02/21 20:51 Dose: 500 mg Documented by: Amlodipine Besylate (Amlodipine 5 Mg Tab) 5 mg PO BID [facility] Last Admin: 06/06/21 07:39 Dose: 5 mg Documented by: Benzonatate (Benzonatate 100 Mg Cap) 100 mg PO TID PRN PRN Reason: COUGH Last Admin: 05/23/21 08:37 Dose: 100 mg Documented by: Chlorphenir/Hydrocodone Polistirex (Hydrocodone/Chlorphen 5 Ml/Osyr) 5 ml PO BID PRN PRN Reason: COUGH Last Admin: 05/31/21 03:57 Dose: 5 ml Documented by: Cholecalciferol (Vitamin D 5,000 Unit Cap) 5,000 unit PO DAILY [facility] Last Admin: 06/06/21 07:39 Dose: 5,000 unit Documented by: Dexamethasone (Dexamethasone 4 Mg Tab) 2 mg PO BID [facility] Last Admin: 06/06/21 07:39 Dose: 2 mg Documented by: Dextrose (D50w 25 Gm/50 Ml Syringe) 12.5 gm IV PRN PRN; Protocol PRN Reason: HYPOGLYCEMIA Last Admin: 06/02/21 05:27 Dose: 12.5 gm Documented by: Emollient Gel (Medihoney 44 Ml Topical Tube) 1 appl TOP DAILY [facility] Last Admin: 06/06/21 07:40 Dose: 1 kendra Documented by: Enteral Nutritional Formula (Nepro Shake 237 Ml Can) 237 ml PO BID [facility] Epoetin Gilles (Epoetin Gilles 10,000 Unit/Ml Vial) 10,000 unit SQ M,W,F [facility] Last Admin: 06/06/21 16:54 Dose: 10,000 unit Documented by: Famotidine (Famotidine 20 Mg Tab) 20 mg PO DAILY [facility]; Protocol Last Admin: 06/06/21 07:38 Dose: 20 mg Documented by: Glucagon (Glucagon 1 Mg/Vial) 1 mg IM 1X PRN; Protocol PRN Reason: HYPOGLYCEMIA Guaifenesin (Guaifenesin 100 Mg/5 Ml Ucup) 100 mg FT QID PRN PRN Reason: COUGH Last Admin: 05/31/21 08:15 Dose: 100 mg Documented by: Heparin Sodium (Porcine) (Heparin 5000 Unit/Ml 1 Ml Vial) 5,000 unit SQ Q12HR [facility] Last Admin: 06/06/21 07:38 Dose: 5,000 unit Documented by: Heparin Sodium (Porcine) (Heparin 1,000 Unit/Ml Vial) 6,000 unit IV EVERY HD PRN PRN Reason: AFTER EACH Stop: 06/11/21 23:59 Albumin Human (Albumin 25%) 50 mls @ 100 mls/hr IV EVERY HD [facility] Insulin Glargine (Insulin Glargine 100 Units/Ml) 10 units SQ DAILY [facility] Last Admin: 06/02/21 09:27 Dose: Not Given Documented by: Insulin Human Regular (Insulin -Regular Human 50 Unit/0.5 Ml Ml) 0 unit SQ ACHS [facility]; Protocol Last Admin: 06/06/21 16:51 Dose: 100 unit Documented by: Loperamide HCl (Loperamide Hcl 2 Mg Capsule) 2 mg PO Q2H PRN PRN Reason: DIARRHEA Last Admin: 05/30/21 16:50 Dose: 2 mg Documented by: Mannitol (Mannitol 25% 12.5 Gm/50 Ml Vial) 12.5 gm IV EVERY HD PRN PRN Reason: Titrate to SBP (MUST DEFINE) Nutritional Formula (Vital Af 1,000 Ml Bot) 0 ml RTH CONT [facility] Quetiapine Fumarate (Quetiapine 25 Mg Tab) 25 mg PO BID [facility] Last Admin: 06/06/21 07:38 Dose: 25 mg Documented by: Sodium Polystyrene Sulfonate (Sod Polystyren Sul 15 Gm/60 Ml Ucup) 15 gm PO BID [facility] Sterile Water (Water For Inj,Sterile 10 Ml) 1.2 ml IM UD PRN PRN Reason: DILUTION OF MED Last Admin: 05/25/21 13:45 Dose: 1.2 ml Documented by: Thiamine HCl (Thiamine 200 Mg/2 Ml Inj) 200 mg IVP BID [facility] Last Admin: 06/06/21 07:38 Dose: 200 mg Documented by: Tramadol HCl (Tramadol Hcl 50 Mg Tab) 50 mg PO TID PRN PRN Reason: Pain scale 5-7 (Moderate) Last Admin: 06/05/21 22:50 Dose: 50 mg Documented by: Microbiology Results 05/20/21 15:00 Blood - Blood Aerobic Blood Culture - Final No growth in 5 days. 05/20/21 15:00 Blood - Blood Anaerobic Blood Culture - Final No growth in 5 days. 05/20/21 14:45 Blood - Blood Aerobic Blood Culture - Final No growth in 5 days. 05/20/21 14:45 Blood - Blood Anaerobic Blood Culture - Final No growth in 5 days. Assessment/ Plan: Nephrology Progress Note Feeling better. Weakness and fatigue. Fair appetite No acute events overnight Vitals, medications blood work and imaging reviewed in the chart General: Awake HEENT: Atraumatic Neck: Supple Respiratory: Diminished Cardiovascular: No edema Gastrointestinal: Non-distended Musculoskeletal: No clubbing, No contractures Integumentary: No rashes, No cyanosis Neurological: Normal speech Greater than 30min patient care. Laboratory Data (last 24 hrs) 05/20/21 14:45: PT 12.9 H, INR 1.12, APTT 30.2 05/20/21 14:45: WBC 11.10 H D, Hgb 8.9 L, Hct 26.5 L, Plt Count 185 05/20/21 14:45: Sodium 139, Potassium 3.9, BUN 50 H D, Creatinine 12.00 H* D, G lucose 144 H, Total Bilirubin 0.5, AST 59 H, ALT 40, Alkaline Phosphatase 49, Amylase 158 H, Lipase 295 Imagings Data: EXAM DESCRIPTION: RAD - Chest Single View - 05/20/2021 3:36 pm CLINICAL HISTORY: code sepsis COMPARISON: Single-view chest May 16 TECHNIQUE: AP portable chest image was obtained 05/20/2021 3:36 pm . FINDINGS: Mid and lower lung field airspace opacification. There is relative sparing of each apex. Heart size is mildly enlarged. No vascular engorgement confirmed. No cavitation or focal mass. No measurable pleural effusion and no pneumothorax. No acute bony abnormality seen. No acute aortic findings suspected. IMPRESSION: Bilateral airspace opacification most likely pneumonia. COVID-19 pneumonia would be a primary consideration in the current clinical environment. Non COVID viral pneumonia and bilateral bacterial pneumonia are possible as well. Conclusions/Impression: ESRD -HD TIW Hyperkalemia -Low potassium diet -HD TIW -Kayexalate as ordered HTN -Continue Amlodipine BID Diastolic CHF -Low sodium diet DM II with CKD -RISS Moderate malnutrition -Encourage nutrition Anemia in CKD -Continue Retacrit MWF -Transfuse PRBC as needed CKD MBD Hypocalcemia -Continue Vitamin D3 COVID-19 PNA Acute hypoxic respiratory failure, improved -Continue Oxygen -Wean steroids as tolerated Toxic metabolic encephalopathy, improved -Continue COVID treatment Case reviewed with Dr. Kirk
[2021-06-06] MEDS: SOD POLYSTYREN SUL 15 GM/60 ML UCUP PO SCH (20:53)
[2021-06-06] MEDS: NEPRO SHAKE 237 ML CAN PO SCH (20:54)
[2021-06-07 04:23] LABS: Hematocrit 28.5 % (36.0-45.0)
[2021-06-07 04:40] LABS: Albumin 2.4 g/dL (3.4-5.0); Magnesium 1.9 mg/dL (1.8-2.4); Phosphorus 4.9 mg/dL (2.5-4.9); Potassium 5.3 mmol/L (3.5-5.1)
--- NOTE | 2021-06-07 06:30 | P.PN ---
Date of Service: 06/07/21 Subjective Feeling better every day, patient reports motivation to work with physical therapy Review of physical therapy notes show patient does not seem as motivated at that time when they come in. She did try to get up to bedside commode yesterday with nursing staff, and was very weak Review of Systems 10 point review of systems otherwise negative Physical Examination General: AOx3, NAD HEENT: normal conjunctiva, sclera anicteric Respiratory: Nonlabored breathing on room air Cardiovascular: No edema, regular rate/rhythm Gastrointestinal: soft, non-distended, non-tender Musculoskeletal: No swelling Neuro: generalized weakness Problem List Acute hypoxic respiratory failure secondary to COVID-19 pneumonia, resolved ESRD on HD Hyperkalemia Acute gastroenteritis, resolved GERD Anemia in chronic kidney disease Acute delirium /encephalopathy, likely secondary to Covid 19, possibly steroid- induced, resolved steroid induced hyperglycemia Debility COVID-19 pneumonia Acute encephalopathy secondary to COVID-19 Acute metabolic encephalopathy secondary to COVID-19 /acute delirium - much improved/resolved pulm following, now breathing comfortably on room air avoid opioids-worsened encephalopathy She was treated with Seroquel as well. After reviewing PT notes, her attitude seems different later in the day compared to when I first see her early in the morning. Possibly from Seroquel that she is still receiving. Discontinued Seroquel Acute gastroenteritis, resolved Earlier in hospitalization, had multiple episodes of loose stool/diarrhea. Improved with Imodium Steroid-induced hyperglycemia, titrate insulin for better control ESRD on HD Hyperkalemia Nephrology consulted, HD per their recommendations On scheduled Kayexalate Code: full Dispo: awaiting insurance auth for inpatient rehab patient seems very motivated. was independent and well functioning prior to COVID / this hospitalization Time 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
[2021-06-07] MEDS: INSULIN -REGULAR HUMAN 50 UNIT/0.5 ML ML SQ SCH ×4 (07:39→20:24)
[2021-06-07] MEDS: SOD POLYSTYREN SUL 15 GM/60 ML UCUP PO SCH ×2 (07:40→20:23)
[2021-06-07] MEDS: dexAMETHasone 4 MG TAB PO SCH ×2 (07:41→20:23)
[2021-06-07] MEDS: THIAMINE 200 MG/2 ML INJ IVP SCH ×2 (07:41→20:22)
[2021-06-07] MEDS: HEPARIN 5000 UNIT/ML 1 ML VIAL SQ SCH ×2 (07:41→20:21)
[2021-06-07] MEDS: FAMOTIDINE 20 MG TAB PO SCH (07:41)
[2021-06-07] MEDS: AMLODIPINE 5 MG TAB PO SCH ×2 (07:41→20:22)
[2021-06-07] MEDS: VITAMIN D 5,000 UNIT CAP PO SCH (07:41)
[2021-06-07] MEDS: MEDIHONEY 44 ML TOPICAL TUBE TOP SCH (07:42)
[2021-06-07] MEDS: NEPRO SHAKE 237 ML CAN PO SCH ×2 (07:42→20:23)
--- NOTE | 2021-06-07 21:55 | P.PN ---
Date of Service: 06/07/21 Vital Signs Temp Pulse Resp BP Pulse Ox 97.7 F 96 H 18 139/65 97 06/07/21 20:00 06/07/21 20:22 06/07/21 20:00 06/07/21 20:22 06/07/21 20:00 Medications Acetaminophen (Acetaminophen 500 Mg Tab) 500 mg PO Q6H PRN PRN Reason: fever Last Admin: 06/02/21 20:51 Dose: 500 mg Documented by: Amlodipine Besylate (Amlodipine 5 Mg Tab) 5 mg PO BID [facility] Last Admin: 06/07/21 20:22 Dose: 5 mg Documented by: Benzonatate (Benzonatate 100 Mg Cap) 100 mg PO TID PRN PRN Reason: COUGH Last Admin: 05/23/21 08:37 Dose: 100 mg Documented by: Cholecalciferol (Vitamin D 5,000 Unit Cap) 5,000 unit PO DAILY [facility] Last Admin: 06/07/21 07:41 Dose: 5,000 unit Documented by: Dexamethasone (Dexamethasone 4 Mg Tab) 2 mg PO BID [facility] Last Admin: 06/07/21 20:23 Dose: 2 mg Documented by: Dextrose (D50w 25 Gm/50 Ml Syringe) 12.5 gm IV PRN PRN; Protocol PRN Reason: HYPOGLYCEMIA Last Admin: 06/02/21 05:27 Dose: 12.5 gm Documented by: Emollient Gel (Medihoney 44 Ml Topical Tube) 1 appl TOP DAILY [facility] Last Admin: 06/07/21 07:42 Dose: 1 kendra Documented by: Enteral Nutritional Formula (Nepro Shake 237 Ml Can) 237 ml PO BID [facility] Last Admin: 06/07/21 20:23 Dose: 237 ml Documented by: Epoetin Gilles (Epoetin Gilles 10,000 Unit/Ml Vial) 10,000 unit SQ M,W,F [facility] Last Admin: 06/06/21 16:54 Dose: 10,000 unit Documented by: Famotidine (Famotidine 20 Mg Tab) 20 mg PO DAILY [facility]; Protocol Last Admin: 06/07/21 07:41 Dose: 20 mg Documented by: Glucagon (Glucagon 1 Mg/Vial) 1 mg IM 1X PRN; Protocol PRN Reason: HYPOGLYCEMIA Guaifenesin (Guaifenesin 100 Mg/5 Ml Ucup) 100 mg FT QID PRN PRN Reason: COUGH Last Admin: 05/31/21 08:15 Dose: 100 mg Documented by: Heparin Sodium (Porcine) (Heparin 5000 Unit/Ml 1 Ml Vial) 5,000 unit SQ Q12HR [facility] Last Admin: 06/07/21 20:21 Dose: 5,000 unit Documented by: Heparin Sodium (Porcine) (Heparin 1,000 Unit/Ml Vial) 6,000 unit IV EVERY HD PRN PRN Reason: AFTER EACH Stop: 06/11/21 23:59 Albumin Human (Albumin 25%) 50 mls @ 100 mls/hr IV EVERY HD [facility] Insulin Glargine (Insulin Glargine 100 Units/Ml) 10 units SQ DAILY [facility] Last Admin: 06/02/21 09:27 Dose: Not Given Documented by: Insulin Human Regular (Insulin -Regular Human 50 Unit/0.5 Ml Ml) 0 unit SQ ACHS [facility]; Protocol Last Admin: 06/07/21 20:24 Dose: Not Given Documented by: Loperamide HCl (Loperamide Hcl 2 Mg Capsule) 2 mg PO Q2H PRN PRN Reason: DIARRHEA Last Admin: 05/30/21 16:50 Dose: 2 mg Documented by: Mannitol (Mannitol 25% 12.5 Gm/50 Ml Vial) 12.5 gm IV EVERY HD PRN PRN Reason: Titrate to SBP (MUST DEFINE) Nutritional Formula (Vital Af 1,000 Ml Bot) 0 ml RTH CONT [facility] Sodium Polystyrene Sulfonate (Sod Polystyren Sul 15 Gm/60 Ml Ucup) 15 gm PO BID [facility] Last Admin: 06/07/21 20:23 Dose: 15 gm Documented by: Sterile Water (Water For Inj,Sterile 10 Ml) 1.2 ml IM UD PRN PRN Reason: DILUTION OF MED Last Admin: 05/25/21 13:45 Dose: 1.2 ml Documented by: Thiamine HCl (Thiamine 200 Mg/2 Ml Inj) 200 mg IVP BID [facility] Last Admin: 06/07/21 20:22 Dose: 200 mg Documented by: Microbiology Results 05/20/21 15:00 Blood - Blood Aerobic Blood Culture - Final No growth in 5 days. 05/20/21 15:00 Blood - Blood Anaerobic Blood Culture - Final No growth in 5 days. 05/20/21 14:45 Blood - Blood Aerobic Blood Culture - Final No growth in 5 days. 05/20/21 14:45 Blood - Blood Anaerobic Blood Culture - Final No growth in 5 days. Assessment/ Plan: Nephrology Progress Note Weakness and fatigue. Fair appetite No acute events overnight Vitals, medications blood work and imaging reviewed in the chart General: Awake HEENT: Atraumatic Neck: Supple Respiratory: Diminished Cardiovascular: No edema Gastrointestinal: Non-distended Musculoskeletal: No clubbing, No contractures Integumentary: No rashes, No cyanosis Neurological: Normal speech Laboratory Data (last 24 hrs) 05/20/21 14:45: PT 12.9 H, INR 1.12, APTT 30.2 05/20/21 14:45: WBC 11.10 H D, Hgb 8.9 L, Hct 26.5 L, Plt Count 185 05/20/21 14:45: Sodium 139, Potassium 3.9, BUN 50 H D, Creatinine 12.00 H* D, Glucose 144 H, Total Bilirubin 0.5, AST 59 H, ALT 40, Alkaline Phosphatase 49, Amylase 158 H, Lipase 295 Imagings Data: EXAM DESCRIPTION: RAD - Chest Single View - 05/20/2021 3:36 pm CLINICAL HISTORY: code sepsis COMPARISON: Single-view chest May 16 TECHNIQUE: AP portable chest image was obtained 05/20/2021 3:36 pm . FINDINGS: Mid and lower lung field airspace opacification. There is relative sparing of each apex. Heart size is mildly enlarged. No vascular engorgement confirmed. No cavitation or focal mass. No measurable pleural effusion and no pneumothorax. No acute bony abnormality seen. No acute aortic findings suspected. IMPRESSION: Bilateral airspace opacification most likely pneumonia. COVID-19 pneumonia would be a primary consideration in the current clinical environment. Non COVID viral pneumonia and bilateral bacterial pneumonia are possible as well. Conclusions/Impression: ESRD -HD TIW Hyperkalemia -Low potassium diet -HD TIW -Kayexalate as ordered HTN -Continue Amlodipine BID Diastolic CHF -Low sodium diet DM II with CKD -RISS Moderate malnutrition -Encourage nutrition Anemia in CKD -Continue Retacrit MWF -Transfuse PRBC as needed CKD MBD Hypocalcemia -Continue Vitamin D3 COVID-19 PNA Acute hypoxic respiratory failure, improved -Continue Oxygen -Wean steroids as tolerated Toxic metabolic encephalopathy, improved -Continue COVID treatment
[2021-06-08] MEDS ORDERED: HYDRALAZINE HCL 20 MG/ML VIAL IV PRN (04:01)
[2021-06-08 05:04] LABS: Hematocrit 26.4 % (36.0-45.0); MPV 9.5 fL (7.6-11.3); RBC Red Blood Cell Count 2.69 M/uL (3.86-4.86)
[2021-06-08 05:28] LABS: Potassium 4.9 mmol/L (3.5-5.1)
[2021-06-08 05:29] LABS: Albumin 2.3 g/dL (3.4-5.0); Magnesium 1.8 mg/dL (1.8-2.4); Phosphorus 7.2 mg/dL (2.5-4.9)
--- NOTE | 2021-06-08 06:22 | P.PN ---
Date of Service: 06/08/21 Subjective no acute events overnight continues to improve worked well with PT yesterday Review of Systems 10 point review of systems otherwise negative Physical Examination General: AOx3, NAD HEENT: normal conjunctiva, sclera anicteric Respiratory: Nonlabored breathing on room air Cardiovascular: No edema, regular rate/rhythm Gastrointestinal: soft, non-distended, non-tender Neuro: generalized weakness Problem List Acute hypoxic respiratory failure secondary to COVID-19 pneumonia, resolved ESRD on HD Hyperkalemia Acute gastroenteritis, resolved GERD Anemia in chronic kidney disease Acute delirium /encephalopathy, likely secondary to Covid 19, possibly steroid- induced, resolved steroid induced hyperglycemia Debility COVID-19 pneumonia Acute encephalopathy secondary to COVID-19 Acute metabolic encephalopathy secondary to COVID-19 /acute delirium - much improved/resolved pulm following, now breathing comfortably on room air avoid opioids-worsened encephalopathy She was treated with Seroquel as well. After reviewing PT notes, her attitude seems different later in the day compared to when I first see her early in the morning. Possibly from Seroquel that she is still receiving. Discontinued Seroquel, has improved Acute gastroenteritis, resolved Earlier in hospitalization, had multiple episodes of loose stool/diarrhea. Improved with Imodium . not requiring any more Steroid-induced hyperglycemia, titrate insulin for better control ESRD on HD Hyperkalemia Nephrology consulted, HD per their recommendations On scheduled Kayexalate Code: full Dispo: awaiting insurance auth for inpatient rehab patient seems very motivated. was independent and well functioning prior to COVID / this hospitalization Time 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
[2021-06-08] MEDS: INSULIN -REGULAR HUMAN 50 UNIT/0.5 ML ML SQ SCH ×4 (08:02→20:41)
[2021-06-08] MEDS: NEPRO SHAKE 237 ML CAN PO SCH ×2 (08:02→20:40)
[2021-06-08] MEDS: HEPARIN 5000 UNIT/ML 1 ML VIAL SQ SCH ×2 (08:03→20:40)
[2021-06-08] MEDS: SOD POLYSTYREN SUL 15 GM/60 ML UCUP PO SCH ×3 (08:03→20:40)
[2021-06-08] MEDS: dexAMETHasone 4 MG TAB PO SCH (08:03)
[2021-06-08] MEDS: VITAMIN D 5,000 UNIT CAP PO SCH (08:04)
[2021-06-08] MEDS: THIAMINE 200 MG/2 ML INJ IVP SCH ×2 (08:04→20:39)
[2021-06-08] MEDS: AMLODIPINE 5 MG TAB PO SCH ×2 (08:04→20:40)
[2021-06-08] MEDS: FAMOTIDINE 20 MG TAB PO SCH (08:04)
[2021-06-08] MEDS: MEDIHONEY 44 ML TOPICAL TUBE TOP SCH (08:06)
[2021-06-08] MEDS: EPOETIN ALFA 10,000 UNIT/ML VIAL SQ SCH (16:48)
[2021-06-08] MEDS: ACETAMINOPHEN 500 MG TAB PO PRN (20:39)
--- NOTE | 2021-06-08 21:16 | P.PN ---
Date of Service: 06/08/21 Vital Signs Temp Pulse Resp BP Pulse Ox 97.8 F 93 H 16 146/73 H 96 06/08/21 11:41 06/08/21 20:40 06/08/21 11:41 06/08/21 20:40 06/08/21 11:41 Medications Acetaminophen (Acetaminophen 500 Mg Tab) 500 mg PO Q6H PRN PRN Reason: fever Last Admin: 06/08/21 20:39 Dose: 500 mg Documented by: Amlodipine Besylate (Amlodipine 5 Mg Tab) 5 mg PO BID [facility] Last Admin: 06/08/21 20:40 Dose: 5 mg Documented by: Benzonatate (Benzonatate 100 Mg Cap) 100 mg PO TID PRN PRN Reason: COUGH Last Admin: 05/23/21 08:37 Dose: 100 mg Documented by: Calcium Acetate (Calcium Acetate 667 Mg Tab) 667 mg PO TIDWM [facility] Cholecalciferol (Vitamin D 5,000 Unit Cap) 5,000 unit PO DAILY [facility] Last Admin: 06/08/21 08:04 Dose: 5,000 unit Documented by: Dexamethasone (Dexamethasone 4 Mg Tab) 2 mg PO DAILY [facility] Dextrose (D50w 25 Gm/50 Ml Syringe) 12.5 gm IV PRN PRN; Protocol PRN Reason: HYPOGLYCEMIA Last Admin: 06/02/21 05:27 Dose: 12.5 gm Documented by: Emollient Gel (Medihoney 44 Ml Topical Tube) 1 appl TOP DAILY [facility] Last Admin: 06/08/21 08:06 Dose: 1 kendra Documented by: Enteral Nutritional Formula (Nepro Shake 237 Ml Can) 237 ml PO BID [facility] Last Admin: 06/08/21 20:40 Dose: 237 ml Documented by: Epoetin Gilles (Epoetin Gilles 10,000 Unit/Ml Vial) 10,000 unit SQ M,W,F [facility] Last Admin: 06/08/21 16:48 Dose: Not Given Documented by: Famotidine (Famotidine 20 Mg Tab) 20 mg PO DAILY [facility]; Protocol Last Admin: 06/08/21 08:04 Dose: 20 mg Documented by: Glucagon (Glucagon 1 Mg/Vial) 1 mg IM 1X PRN; Protocol PRN Reason: HYPOGLYCEMIA Guaifenesin (Guaifenesin 100 Mg/5 Ml Ucup) 100 mg FT QID PRN PRN Reason: COUGH Last Admin: 05/31/21 08:15 Dose: 100 mg Documented by: Heparin Sodium (Porcine) (Heparin 5000 Unit/Ml 1 Ml Vial) 5,000 unit SQ Q12HR [facility] Last Admin: 06/08/21 20:40 Dose: Not Given Documented by: Heparin Sodium (Porcine) (Heparin 1,000 Unit/Ml Vial) 6,000 unit IV EVERY HD PRN PRN Reason: AFTER EACH Stop: 06/11/21 23:59 Hydralazine HCl (Hydralazine Hcl 20 Mg/Ml Vial) 10 mg IV Q6HP PRN PRN Reason: Titrate to SBP (MUST DEFINE) Albumin Human (Albumin 25%) 50 mls @ 100 mls/hr IV EVERY HD [facility] Insulin Glargine (Insulin Glargine 100 Units/Ml) 10 units SQ DAILY [facility] Last Admin: 06/02/21 09:27 Dose: Not Given Documented by: Insulin Human Regular (Insulin -Regular Human 50 Unit/0.5 Ml Ml) 0 unit SQ ACHS [facility]; Protocol Last Admin: 06/08/21 20:41 Dose: 4 unit Documented by: Mannitol (Mannitol 25% 12.5 Gm/50 Ml Vial) 12.5 gm IV EVERY HD PRN PRN Reason: Titrate to SBP (MUST DEFINE) Nutritional Formula (Vital Af 1,000 Ml Bot) 0 ml RTH CONT [facility] Sodium Polystyrene Sulfonate (Sod Polystyren Sul 15 Gm/60 Ml Ucup) 15 gm PO BID [facility] Last Admin: 06/08/21 20:40 Dose: Not Given Documented by: Sterile Water (Water For Inj,Sterile 10 Ml) 1.2 ml IM UD PRN PRN Reason: DILUTION OF MED Last Admin: 05/25/21 13:45 Dose: 1.2 ml Documented by: Thiamine HCl (Thiamine 200 Mg/2 Ml Inj) 200 mg IVP BID [facility] Last Admin: 06/08/21 20:39 Dose: 200 mg Documented by: Microbiology Results 05/20/21 15:00 Blood - Blood Aerobic Blood Culture - Final No growth in 5 days. 05/20/21 15:00 Blood - Blood Anaerobic Blood Culture - Final No growth in 5 days. 05/20/21 14:45 Blood - Blood Aerobic Blood Culture - Final No growth in 5 days. 05/20/21 14:45 Blood - Blood Anaerobic Blood Culture - Final No growth in 5 days. Assessment/ Plan: Nephrology Progress Note Weakness and fatigue. Fair appetite No acute events overnight Vitals, medications blood work and imaging reviewed in the chart General: Awake HEENT: Atraumatic Neck: Supple Respiratory: Diminished Cardiovascular: No edema Gastrointestinal: Non-distended Musculoskeletal: No clubbing, No contractures Integumentary: No rashes, No cyanosis Neurological: Normal speech Laboratory Data (last 24 hrs) 05/20/21 14:45: PT 12.9 H, INR 1.12, APTT 30.2 05/20/21 14:45: WBC 11.10 H D, Hgb 8.9 L, Hct 26.5 L, Plt Count 185 05/20/21 14:45: Sodium 139, Potassium 3.9, BUN 50 H D, Creatinine 12.00 H* D, Glucose 144 H, Total Bilirubin 0.5, AST 59 H, ALT 40, Alkaline Phosphatase 49, Amylase 158 H, Lipase 295 Imagings Data: EXAM DESCRIPTION: RAD - Chest Single View - 05/20/2021 3:36 pm CLINICAL HISTORY: code sepsis COMPARISON: Single-view chest May 16 TECHNIQUE: AP portable chest image was obtained 05/20/2021 3:36 pm . FINDINGS: Mid and lower lung field airspace opacification. There is relative sparing of each apex. Heart size is mildly enlarged. No vascular engorgement confirmed. No cavitation or focal mass. No measurable pleural effusion and no pneumothorax. No acute bony abnormality seen. No acute aortic findings suspected. IMPRESSION: Bilateral airspace opacification most likely pneumonia. COVID-19 pneumonia would be a primary consideration in the current clinical environment. Non COVID viral pneumonia and bilateral bacterial pneumonia are possible as well. Conclusions/Impression: ESRD -HD TIW Hyperkalemia -Low potassium diet -HD TIW -Kayexalate as ordered HTN -Continue Amlodipine BID Diastolic CHF -Low sodium diet DM II with CKD -RISS Moderate malnutrition -Encourage nutrition Anemia in CKD -Continue Retacrit MWF -Transfuse PRBC as needed CKD MBD HyperPO4 Hypocalcemia -Continue Vitamin D3 -Start Phoslo COVID-19 PNA Acute hypoxic respiratory failure, improved -Continue Oxygen -Wean steroids as tolerated Toxic metabolic encephalopathy, improved -Continue COVID treatment
--- NOTE | 2021-06-09 06:15 | P.PN ---
Date of Service: 06/09/21 Subjective no acute events overnight continues to improve No new complaints Awaiting inpatient rehab Review of Systems 10 point review of systems otherwise negative Physical Examination General: AOx3, NAD HEENT: normal conjunctiva, sclera anicteric Respiratory: Nonlabored breathing on 1 L nasal cannula Cardiovascular: No edema, regular rate/rhythm Gastrointestinal: soft, non-distended, non-tender Neuro: generalized weakness Problem List Acute hypoxic respiratory failure secondary to COVID-19 pneumonia, resolved ESRD on HD Hyperkalemia Acute gastroenteritis, resolved GERD Anemia in chronic kidney disease Acute delirium /encephalopathy, likely secondary to Covid 19, possibly steroid- induced, resolved steroid induced hyperglycemia Debility COVID-19 pneumonia Acute encephalopathy secondary to COVID-19 Acute metabolic encephalopathy secondary to COVID-19 /acute delirium - much improved/resolved pulm following, now breathing comfortably on room air and symptoms needing 1 L nasal cannula avoid opioids-worsened encephalopathy She was treated with Seroquel as well. After reviewing PT notes, her attitude seems different later in the day compared to when I first see her early in the morning. Possibly from Seroquel that she is still receiving. Discontinued Seroquel, now much more alert/awake, working with physical therapy more Acute gastroenteritis, resolved Earlier in hospitalization, had multiple episodes of loose stool/diarrhea. Improved with Imodium . not requiring any more Steroid-induced hyperglycemia, titrate insulin for better control ESRD on HD Hyperkalemia Nephrology consulted, HD per their recommendations Improvement with Kayexalate Code: full Dispo: Patient was very independent prior to Covid/this hospitalization. Great candidate for inpatient rehab, has been working with physical therapy much more in the last 2 days Insurance denied inpatient rehab, family will be appealing Time 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
[2021-06-09 06:26] LABS: Albumin 2.3 g/dL (3.4-5.0); Magnesium 1.9 mg/dL (1.8-2.4); Potassium 3.8 mmol/L (3.5-5.1)
[2021-06-09] MEDS: INSULIN -REGULAR HUMAN 50 UNIT/0.5 ML ML SQ SCH ×4 (07:30→19:55)
[2021-06-09] MEDS: THIAMINE 200 MG/2 ML INJ IVP SCH ×2 (08:57→20:01)
[2021-06-09] MEDS: dexAMETHasone 4 MG TAB PO SCH (08:58)
[2021-06-09] MEDS: HEPARIN 5000 UNIT/ML 1 ML VIAL SQ SCH ×2 (08:58→19:44)
[2021-06-09] MEDS: FAMOTIDINE 20 MG TAB PO SCH (08:58)
[2021-06-09] MEDS: CALCIUM ACETATE 667 MG TAB PO SCH ×3 (08:58→17:31)
[2021-06-09] MEDS: VITAMIN D 5,000 UNIT CAP PO SCH (08:58)
[2021-06-09] MEDS: NEPRO SHAKE 237 ML CAN PO SCH ×2 (09:00→19:55)
[2021-06-09] MEDS: MEDIHONEY 44 ML TOPICAL TUBE TOP SCH (09:00)
[2021-06-09] MEDS: AMLODIPINE 5 MG TAB PO SCH ×2 (09:00→19:55)
[2021-06-09] MEDS: SOD POLYSTYREN SUL 15 GM/60 ML UCUP PO SCH (09:00)
--- NOTE | 2021-06-09 20:59 | P.PN ---
Date of Service: 06/09/21 Vital Signs Temp Pulse Resp BP Pulse Ox 97.7 F 97 H 18 162/74 H 93 06/09/21 20:00 06/09/21 20:00 06/09/21 20:00 06/09/21 20:00 06/09/21 20:00 Medications Acetaminophen (Acetaminophen 500 Mg Tab) 500 mg PO Q6H PRN PRN Reason: fever Last Admin: 06/08/21 20:39 Dose: 500 mg Documented by: Amlodipine Besylate (Amlodipine 5 Mg Tab) 5 mg PO BID [facility] Last Admin: 06/09/21 19:55 Dose: 5 mg Documented by: Benzonatate (Benzonatate 100 Mg Cap) 100 mg PO TID PRN PRN Reason: COUGH Last Admin: 05/23/21 08:37 Dose: 100 mg Documented by: Calcium Acetate (Calcium Acetate 667 Mg Tab) 667 mg PO TIDWM [facility] Last Admin: 06/09/21 17:31 Dose: 667 mg Documented by: Cholecalciferol (Vitamin D 5,000 Unit Cap) 5,000 unit PO DAILY [facility] Last Admin: 06/09/21 08:58 Dose: 5,000 unit Documented by: Dexamethasone (Dexamethasone 4 Mg Tab) 2 mg PO DAILY [facility] Last Admin: 06/09/21 08:58 Dose: 2 mg Documented by: Dextrose (D50w 25 Gm/50 Ml Syringe) 12.5 gm IV PRN PRN; Protocol PRN Reason: HYPOGLYCEMIA Last Admin: 06/02/21 05:27 Dose: 12.5 gm Documented by: Emollient Gel (Medihoney 44 Ml Topical Tube) 1 appl TOP DAILY [facility] Last Admin: 06/09/21 09:00 Dose: 1 kendra Documented by: Enteral Nutritional Formula (Nepro Shake 237 Ml Can) 237 ml PO BID [facility] Last Admin: 06/09/21 19:55 Dose: 237 ml Documented by: Epoetin Gilles (Epoetin Gilles 10,000 Unit/Ml Vial) 10,000 unit SQ M,W,F [facility] Last Admin: 06/08/21 16:48 Dose: Not Given Documented by: Famotidine (Famotidine 20 Mg Tab) 20 mg PO DAILY [facility]; Protocol Last Admin: 06/09/21 08:58 Dose: 20 mg Documented by: Glucagon (Glucagon 1 Mg/Vial) 1 mg IM 1X PRN; Protocol PRN Reason: HYPOGLYCEMIA Guaifenesin (Guaifenesin 100 Mg/5 Ml Ucup) 100 mg FT QID PRN PRN Reason: COUGH Last Admin: 05/31/21 08:15 Dose: 100 mg Documented by: Heparin Sodium (Porcine) (Heparin 5000 Unit/Ml 1 Ml Vial) 5,000 unit SQ Q12HR [facility] Last Admin: 06/09/21 19:44 Dose: 5,000 unit Documented by: Heparin Sodium (Porcine) (Heparin 1,000 Unit/Ml Vial) 6,000 unit IV EVERY HD PRN PRN Reason: AFTER EACH Stop: 06/11/21 23:59 Hydralazine HCl (Hydralazine Hcl 20 Mg/Ml Vial) 10 mg IV Q6HP PRN PRN Reason: Titrate to SBP (MUST DEFINE) Albumin Human (Albumin 25%) 50 mls @ 100 mls/hr IV EVERY HD [facility] Insulin Glargine (Insulin Glargine 100 Units/Ml) 10 units SQ DAILY [facility] Last Admin: 06/02/21 09:27 Dose: Not Given Documented by: Insulin Human Regular (Insulin -Regular Human 50 Unit/0.5 Ml Ml) 0 unit SQ ACHS [facility]; Protocol Last Admin: 06/09/21 19:55 Dose: 4 unit Documented by: Mannitol (Mannitol 25% 12.5 Gm/50 Ml Vial) 12.5 gm IV EVERY HD PRN PRN Reason: Titrate to SBP (MUST DEFINE) Nutritional Formula (Vital Af 1,000 Ml Bot) 0 ml RTH CONT SELMA Sterile Water (Water For Inj,Sterile 10 Ml) 1.2 ml IM UD PRN PRN Reason: DILUTION OF MED Last Admin: 05/25/21 13:45 Dose: 1.2 ml Documented by: Thiamine HCl (Thiamine 200 Mg/2 Ml Inj) 200 mg IVP BID [facility] Last Admin: 06/09/21 20:01 Dose: 200 mg Documented by: Microbiology Results 05/20/21 15:00 Blood - Blood Aerobic Blood Culture - Final No growth in 5 days. 05/20/21 15:00 Blood - Blood Anaerobic Blood Culture - Final No growth in 5 days. 05/20/21 14:45 Blood - Blood Aerobic Blood Culture - Final No growth in 5 days. 05/20/21 14:45 Blood - Blood Anaerobic Blood Culture - Final No growth in 5 days. Assessment/ Plan: Nephrology Progress Note Weakness and fatigue. Feeling better. Fair appetite No acute events overnight Vitals, medications blood work and imaging reviewed in the chart General: Awake HEENT: Atraumatic Neck: Supple Respiratory: Diminished Cardiovascular: No edema Gastrointestinal: Non-distended Musculoskeletal: No clubbing, No contractures Integumentary: No rashes, No cyanosis Neurological: Normal speech Laboratory Data (last 24 hrs) 05/20/21 14:45: PT 12.9 H, INR 1.12, APTT 30.2 05/20/21 14:45: WBC 11.10 H D, Hgb 8.9 L, Hct 26.5 L, Plt Count 185 05/20/21 14:45: Sodium 139, Potassium 3.9, BUN 50 H D, Creatinine 12.00 H* D, Glucose 144 H, Total Bilirubin 0.5, AST 59 H, ALT 40, Alkaline Phosphatase 49, Amylase 158 H, Lipase 295 Imagings Data: EXAM DESCRIPTION: RAD - Chest Single View - 05/20/2021 3:36 pm CLINICAL HISTORY: code sepsis COMPARISON: Single-view chest May 16 TECHNIQUE: AP portable chest image was obtained 05/20/2021 3:36 pm . FINDINGS: Mid and lower lung field airspace opacification. There is relative sparing of each apex. Heart size is mildly enlarged. No vascular engorgement confirmed. No cavitation or focal mass. No measurable pleural effusion and no pneumothorax. No acute bony abnormality seen. No acute aortic findings suspected. IMPRESSION: Bilateral airspace opacification most likely pneumonia. COVID-19 pneumonia would be a primary consideration in the current clinical environment. Non COVID viral pneumonia and bilateral bacterial pneumonia are possible as well. Conclusions/Impression: ESRD -HD TIW Hyperkalemia -Low potassium diet -HD TIW -Discontinue Kayexalate HTN -Continue Amlodipine BID Diastolic CHF -Low sodium diet DM II with CKD -RISS Moderate malnutrition -Encourage nutrition Anemia in CKD -Continue Retacrit MWF -Transfuse PRBC as needed CKD MBD HyperPO4 Hypocalcemia -Continue Vitamin D3 -Start Phoslo COVID-19 PNA Acute hypoxic respiratory failure, improved -Continue Oxygen -Wean steroids as tolerated Toxic metabolic encephalopathy, improved -Continue COVID treatment Case reviewed with Dr. Kirk
--- NOTE | 2021-06-10 05:59 | P.PN ---
Date of Service: 06/10/21 Subjective No acute events overnight. Patient still remains on 1-2 L nasal cannula, hypoxic to mid 80s on room air at times Seems very motivated to continue to improve, states she wants to get walking again. Working with OT Review of Systems 10 point review of systems otherwise negative Physical Examination General: AOx3, NAD HEENT: normal conjunctiva, sclera anicteric Respiratory: Nonlabored breathing on 1 L nasal cannula Cardiovascular: No edema, regular rate/rhythm Gastrointestinal: soft, non-distended, non-tender Neuro: generalized weakness Problem List Acute hypoxic respiratory failure secondary to COVID-19 pneumonia, resolved ESRD on HD Hyperkalemia Acute gastroenteritis, resolved GERD Anemia in chronic kidney disease Acute delirium /encephalopathy, likely secondary to Covid 19, possibly steroid- induced, resolved steroid induced hyperglycemia Debility COVID-19 pneumonia Acute encephalopathy secondary to COVID-19 Acute metabolic encephalopathy secondary to COVID-19 /acute delirium -resolved now breathing comfortably on room air and symptoms needing 1 L nasal cannula avoid opioids-worsened encephalopathy She was treated with Seroquel as well. After reviewing PT notes, her attitude seems different later in the day compared to when I first see her early in the morning. Possibly from Seroquel that she is still receiving. Discontinued Seroquel, now much more alert/awake, working with physical therapy more Acute gastroenteritis, resolved Earlier in hospitalization, had multiple episodes of loose stool/diarrhea. Improved with Imodium . not requiring any more Steroid-induced hyperglycemia, titrate insulin for better control ESRD on HD Hyperkalemia Nephrology consulted, HD per their recommendations Improvement with Kayexalate as needed Code: full Dispo: Patient was very independent prior to Covid/this hospitalization. Great candidate for inpatient rehab, has been working with physical therapy much more in the last 3 days Insurance denied inpatient rehab, family will be appealing Time 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
[2021-06-10 06:13] LABS: Hematocrit 27.2 % (36.0-45.0); MPV 8.9 fL (7.6-11.3); RBC Red Blood Cell Count 2.81 M/uL (3.86-4.86)
[2021-06-10 06:22] LABS: Albumin 2.4 g/dL (3.4-5.0); Magnesium 1.8 mg/dL (1.8-2.4)
[2021-06-10] MEDS: INSULIN -REGULAR HUMAN 50 UNIT/0.5 ML ML SQ SCH ×4 (07:30→21:00)
[2021-06-10] MEDS: NEPRO SHAKE 237 ML CAN PO SCH ×2 (09:00→21:00)
[2021-06-10] MEDS: MEDIHONEY 44 ML TOPICAL TUBE TOP SCH (09:00)
[2021-06-10] MEDS: AMLODIPINE 5 MG TAB PO SCH ×2 (09:31→21:00)
[2021-06-10] MEDS: VITAMIN D 5,000 UNIT CAP PO SCH (09:31)
[2021-06-10] MEDS: THIAMINE 200 MG/2 ML INJ IVP SCH ×2 (09:31→21:00)
[2021-06-10] MEDS: dexAMETHasone 4 MG TAB PO SCH (09:31)
[2021-06-10] MEDS: CALCIUM ACETATE 667 MG TAB PO SCH ×3 (09:31→16:19)
[2021-06-10] MEDS: HEPARIN 5000 UNIT/ML 1 ML VIAL SQ SCH ×2 (09:32→21:00)
[2021-06-10] MEDS: FAMOTIDINE 20 MG TAB PO SCH (09:32)
[2021-06-10] MEDS: ACETAMINOPHEN 500 MG TAB PO PRN (09:36)
--- NOTE | 2021-06-10 17:24 | P.PN ---
Date of Service: 06/10/21 Vital Signs Temp Pulse Resp BP Pulse Ox 97.6 F 96 H 18 127/58 L 96 06/10/21 16:00 06/10/21 16:00 06/10/21 16:00 06/10/21 16:00 06/10/21 16:00 Medications Acetaminophen (Acetaminophen 500 Mg Tab) 500 mg PO Q6H PRN PRN Reason: fever Last Admin: 06/10/21 09:36 Dose: 500 mg Documented by: Amlodipine Besylate (Amlodipine 5 Mg Tab) 5 mg PO BID [facility] Last Admin: 06/10/21 09:31 Dose: 5 mg Documented by: Benzonatate (Benzonatate 100 Mg Cap) 100 mg PO TID PRN PRN Reason: COUGH Last Admin: 05/23/21 08:37 Dose: 100 mg Documented by: Calcium Acetate (Calcium Acetate 667 Mg Tab) 1,334 mg PO TIDWM [facility] Cholecalciferol (Vitamin D 5,000 Unit Cap) 5,000 unit PO DAILY [facility] Last Admin: 06/10/21 09:31 Dose: 5,000 unit Documented by: Dexamethasone (Dexamethasone 4 Mg Tab) 2 mg PO DAILY [facility] Last Admin: 06/10/21 09:31 Dose: 2 mg Documented by: Dextrose (D50w 25 Gm/50 Ml Syringe) 12.5 gm IV PRN PRN; Protocol PRN Reason: HYPOGLYCEMIA Last Admin: 06/02/21 05:27 Dose: 12.5 gm Documented by: Emollient Gel (Medihoney 44 Ml Topical Tube) 1 appl TOP DAILY [facility] Last Admin: 06/10/21 09:00 Dose: 1 kendra Documented by: Enteral Nutritional Formula (Nepro Shake 237 Ml Can) 237 ml PO BID [facility] Last Admin: 06/10/21 09:00 Dose: 237 ml Documented by: Epoetin Gilles (Epoetin Gilles 10,000 Unit/Ml Vial) 10,000 unit SQ M,W,F [facility] Last Admin: 06/08/21 16:48 Dose: Not Given Documented by: Famotidine (Famotidine 20 Mg Tab) 20 mg PO DAILY [facility]; Protocol Last Admin: 06/10/21 09:32 Dose: 20 mg Documented by: Glucagon (Glucagon 1 Mg/Vial) 1 mg IM 1X PRN; Protocol PRN Reason: HYPOGLYCEMIA Guaifenesin (Guaifenesin 100 Mg/5 Ml Ucup) 100 mg FT QID PRN PRN Reason: COUGH Last Admin: 05/31/21 08:15 Dose: 100 mg Documented by: Heparin Sodium (Porcine) (Heparin 5000 Unit/Ml 1 Ml Vial) 5,000 unit SQ Q12HR [facility] Last Admin: 06/10/21 09:32 Dose: 5,000 unit Documented by: Heparin Sodium (Porcine) (Heparin 1,000 Unit/Ml Vial) 6,000 unit IV EVERY HD PRN PRN Reason: AFTER EACH Stop: 06/11/21 23:59 Hydralazine HCl (Hydralazine Hcl 20 Mg/Ml Vial) 10 mg IV Q6HP PRN PRN Reason: Titrate to SBP (MUST DEFINE) Albumin Human (Albumin 25%) 50 mls @ 100 mls/hr IV EVERY HD [facility] Insulin Glargine (Insulin Glargine 100 Units/Ml) 5 units SQ DAILY [facility] Insulin Human Regular (Insulin -Regular Human 50 Unit/0.5 Ml Ml) 0 unit SQ ACHS [facility]; Protocol Last Admin: 06/10/21 16:19 Dose: 6 unit Documented by: Mannitol (Mannitol 25% 12.5 Gm/50 Ml Vial) 12.5 gm IV EVERY HD PRN PRN Reason: Titrate to SBP (MUST DEFINE) Nutritional Formula (Vital Af 1,000 Ml Bot) 0 ml RTH CONT [facility] Sterile Water (Water For Inj,Sterile 10 Ml) 1.2 ml IM UD PRN PRN Reason: DILUTION OF MED Last Admin: 05/25/21 13:45 Dose: 1.2 ml Documented by: Thiamine HCl (Thiamine 200 Mg/2 Ml Inj) 200 mg IVP BID [facility] Last Admin: 06/10/21 09:31 Dose: 200 mg Documented by: Microbiology Results 05/20/21 15:00 Blood - Blood Aerobic Blood Culture - Final No growth in 5 days. 05/20/21 15:00 Blood - Blood Anaerobic Blood Culture - Final No growth in 5 days. 05/20/21 14:45 Blood - Blood Aerobic Blood Culture - Final No growth in 5 days. 05/20/21 14:45 Blood - Blood Anaerobic Blood Culture - Final No growth in 5 days. Assessment/ Plan: Nephrology Progress Note Weakness and fatigue. Feeling better. Fair appetite No acute events overnight Vitals, medications blood work and imaging reviewed in the chart General: Awake HEENT: Atraumatic Neck: Supple Respiratory: Diminished Cardiovascular: No edema Gastrointestinal: Non-distended Musculoskeletal: No clubbing, No contractures Integumentary: No rashes, No cyanosis Neurological: Normal speech Laboratory Data (last 24 hrs) 05/20/21 14:45: PT 12.9 H, INR 1.12, APTT 30.2 05/20/21 14:45: WBC 11.10 H D, Hgb 8.9 L, Hct 26.5 L, Plt Count 185 05/20/21 14:45: Sodium 139, Potassium 3.9, BUN 50 H D, Creatinine 12.00 H* D, Glucose 144 H, Total Bilirubin 0.5, AST 59 H, ALT 40, Alkaline Phosphatase 49, Amylase 158 H, Lipase 295 Imagings Data: EXAM DESCRIPTION: RAD - Chest Single View - 05/20/2021 3:36 pm CLINICAL HISTORY: code sepsis COMPARISON: Single-view chest May 16 TECHNIQUE: AP portable chest image was obtained 05/20/2021 3:36 pm . FINDINGS: Mid and lower lung field airspace opacification. There is relative sparing of each apex. Heart size is mildly enlarged. No vascular engorgement confirmed. No cavitation or focal mass. No measurable pleural effusion and no pneumothorax. No acute bony abnormality seen. No acute aortic findings suspected. IMPRESSION: Bilateral airspace opacification most likely pneumonia. COVID-19 pneumonia would be a primary consideration in the current clinical environment. Non COVID viral pneumonia and bilateral bacterial pneumonia are possible as well. Conclusions/Impression: ESRD -HD TIW Hyperkalemia -Low potassium diet -HD TIW HTN -Continue Amlodipine BID Diastolic CHF -Low sodium diet DM II with CKD -RISS Moderate malnutrition -Encourage nutrition Anemia in CKD -Continue Retacrit MWF -Transfuse PRBC as needed CKD MBD HyperPO4 Hypocalcemia -Continue Vitamin D3 -Increase Phoslo COVID-19 PNA Acute hypoxic respiratory failure, improved -Continue Oxygen -Wean steroids as tolerated Toxic metabolic encephalopathy, improved -Continue COVID treatment Case reviewed with Dr. Kirk
--- NOTE | 2021-06-11 06:14 | P.PN ---
Date of Service: 06/11/21 Subjective continues to improve daily no new complaints generalized weakness, worked with PT/OT over weekend, able to stand with assistance briefly Review of Systems 10 point review of systems otherwise negative Physical Examination General: AOx3, NAD HEENT: normal conjunctiva, sclera anicteric Respiratory: Nonlabored breathing on 1 L nasal cannula Cardiovascular: trace edema, regular rate/rhythm Gastrointestinal: soft, non-distended, non-tender Neuro: generalized weakness Problem List Acute hypoxic respiratory failure secondary to COVID-19 pneumonia, resolved ESRD on HD Hyperkalemia Acute gastroenteritis, resolved GERD Anemia in chronic kidney disease Acute delirium /encephalopathy, likely secondary to Covid 19, possibly steroid- induced, resolved steroid induced hyperglycemia Debility COVID-19 pneumonia Acute encephalopathy secondary to COVID-19 Acute metabolic encephalopathy secondary to COVID-19 /acute delirium -resolved now breathing comfortably on room air and symptoms needing 1 L nasal cannula avoid opioids-worsened encephalopathy She was treated with Seroquel as well. After reviewing PT notes, her attitude seems different later in the day compared to when I first see her early in the morning. Possibly from Seroquel that she is still receiving. Discontinued Seroquel, now much more alert/awake, working with physical therapy more Acute gastroenteritis, resolved Earlier in hospitalization, had multiple episodes of loose stool/diarrhea. Improved with Imodium . not requiring any more Steroid-induced hyperglycemia, titrate insulin for better control ESRD on HD Hyperkalemia Nephrology consulted, HD per their recommendations Improvement with Kayexalate as needed Code: full Dispo: Patient was very independent prior to Covid/this hospitalization. Great candidate for inpatient rehab, has been working with physical therapy much more in the last few days Insurance denied inpatient rehab, family appealing. no [id number] was offered Time 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
[2021-06-11 06:35] LABS: Albumin 2.3 g/dL (3.4-5.0); Bilirubin Total 0.4 mg/dL (0.2-1.0); Potassium 4.5 mmol/L (3.5-5.1); Protein, Total 5.8 g/dL (6.4-8.2)
[2021-06-11] MEDS: INSULIN -REGULAR HUMAN 50 UNIT/0.5 ML ML SQ SCH ×4 (07:30→21:00)
[2021-06-11] MEDS: MEDIHONEY 44 ML TOPICAL TUBE TOP SCH (09:00)
[2021-06-11] MEDS: NEPRO SHAKE 237 ML CAN PO SCH ×2 (09:00→21:00)
[2021-06-11] MEDS ORDERED: INSULIN GLARGINE 100 UNITS/ML SQ SCH (09:00)
[2021-06-11] MEDS: THIAMINE 200 MG/2 ML INJ IVP SCH ×2 (09:10→21:32)
[2021-06-11] MEDS: FAMOTIDINE 20 MG TAB PO SCH (09:10)
[2021-06-11] MEDS: AMLODIPINE 5 MG TAB PO SCH ×2 (09:10→21:31)
[2021-06-11] MEDS: VITAMIN D 5,000 UNIT CAP PO SCH (09:11)
[2021-06-11] MEDS: CALCIUM ACETATE 667 MG TAB PO SCH ×3 (09:11→16:10)
[2021-06-11] MEDS: dexAMETHasone 4 MG TAB PO SCH (09:11)
[2021-06-11] MEDS: HEPARIN 5000 UNIT/ML 1 ML VIAL SQ SCH ×2 (09:12→21:32)
[2021-06-11] MEDS: EPOETIN ALFA 10,000 UNIT/ML VIAL SQ SCH (16:10)
--- NOTE | 2021-06-11 20:37 | P.PN ---
Date of Service: 06/11/21 Vital Signs Temp Pulse Resp BP Pulse Ox 98.0 F 100 H 17 125/62 93 06/11/21 15:39 06/11/21 15:39 06/11/21 15:39 06/11/21 15:39 06/11/21 15:39 Medications Acetaminophen (Acetaminophen 500 Mg Tab) 500 mg PO Q6H PRN PRN Reason: fever Last Admin: 06/10/21 09:36 Dose: 500 mg Documented by: Amlodipine Besylate (Amlodipine 5 Mg Tab) 5 mg PO BID [facility] Last Admin: 06/11/21 09:10 Dose: 5 mg Documented by: Benzonatate (Benzonatate 100 Mg Cap) 100 mg PO TID PRN PRN Reason: COUGH Last Admin: 05/23/21 08:37 Dose: 100 mg Documented by: Calcium Acetate (Calcium Acetate 667 Mg Tab) 1,334 mg PO TIDWM [facility] Last Admin: 06/11/21 16:10 Dose: 1,334 mg Documented by: Cholecalciferol (Vitamin D 5,000 Unit Cap) 5,000 unit PO DAILY [facility] Last Admin: 06/11/21 09:11 Dose: 5,000 unit Documented by: Dexamethasone (Dexamethasone 4 Mg Tab) 2 mg PO DAILY [facility] Last Admin: 06/11/21 09:11 Dose: 2 mg Documented by: Dextrose (D50w 25 Gm/50 Ml Syringe) 12.5 gm IV PRN PRN; Protocol PRN Reason: HYPOGLYCEMIA Last Admin: 06/02/21 05:27 Dose: 12.5 gm Documented by: Emollient Gel (Medihoney 44 Ml Topical Tube) 1 appl TOP DAILY [facility] Last Admin: 06/11/21 09:00 Dose: 1 kendra Documented by: Enteral Nutritional Formula (Nepro Shake 237 Ml Can) 237 ml PO BID [facility] Last Admin: 06/11/21 09:00 Dose: 237 ml Documented by: Epoetin Gilles (Epoetin Gilles 10,000 Unit/Ml Vial) 10,000 unit SQ M,W,F [facility] Last Admin: 06/11/21 16:10 Dose: 10,000 unit Documented by: Famotidine (Famotidine 20 Mg Tab) 20 mg PO DAILY [facility]; Protocol Last Admin: 06/11/21 09:10 Dose: 20 mg Documented by: Glucagon (Glucagon 1 Mg/Vial) 1 mg IM 1X PRN; Protocol PRN Reason: HYPOGLYCEMIA Guaifenesin (Guaifenesin 100 Mg/5 Ml Ucup) 100 mg FT QID PRN PRN Reason: COUGH Last Admin: 05/31/21 08:15 Dose: 100 mg Documented by: Heparin Sodium (Porcine) (Heparin 5000 Unit/Ml 1 Ml Vial) 5,000 unit SQ Q12HR [facility] Last Admin: 06/11/21 09:12 Dose: 5,000 unit Documented by: Heparin Sodium (Porcine) (Heparin 1,000 Unit/Ml Vial) 6,000 unit IV EVERY HD PRN PRN Reason: AFTER EACH Stop: 06/16/21 23:59 Hydralazine HCl (Hydralazine Hcl 20 Mg/Ml Vial) 10 mg IV Q6HP PRN PRN Reason: Titrate to SBP (MUST DEFINE) Albumin Human (Albumin 25%) 50 mls @ 100 mls/hr IV EVERY HD [facility] Insulin Glargine (Insulin Glargine 100 Units/Ml) 5 units SQ DAILY [facility] Insulin Human Regular (Insulin -Regular Human 50 Unit/0.5 Ml Ml) 0 unit SQ ACHS [facility]; Protocol Last Admin: 06/11/21 16:09 Dose: 4 unit Documented by: Mannitol (Mannitol 25% 12.5 Gm/50 Ml Vial) 12.5 gm IV EVERY HD PRN PRN Reason: Titrate to SBP (MUST DEFINE) Nutritional Formula (Vital Af 1,000 Ml Bot) 0 ml RTH CONT [facility] Sterile Water (Water For Inj,Sterile 10 Ml) 1.2 ml IM UD PRN PRN Reason: DILUTION OF MED Last Admin: 05/25/21 13:45 Dose: 1.2 ml Documented by: Thiamine HCl (Thiamine 200 Mg/2 Ml Inj) 200 mg IVP BID [facility] Last Admin: 06/11/21 09:10 Dose: 200 mg Documented by: Microbiology Results 05/20/21 15:00 Blood - Blood Aerobic Blood Culture - Final No growth in 5 days. 05/20/21 15:00 Blood - Blood Anaerobic Blood Culture - Final No growth in 5 days. 05/20/21 14:45 Blood - Blood Aerobic Blood Culture - Final No growth in 5 days. 05/20/21 14:45 Blood - Blood Anaerobic Blood Culture - Final No growth in 5 days. Assessment/ Plan: Nephrology Progress Note Weakness and fatigue. Feeling better. Fair appetite No acute events overnight Vitals, medications blood work and imaging reviewed in the chart General: Awake HEENT: Atraumatic Neck: Supple Respiratory: Diminished Cardiovascular: No edema Gastrointestinal: Non-distended Musculoskeletal: No clubbing, No contractures Integumentary: No rashes, No cyanosis Neurological: Normal speech Laboratory Data (last 24 hrs) 05/20/21 14:45: PT 12.9 H, INR 1.12, APTT 30.2 05/20/21 14:45: WBC 11.10 H D, Hgb 8.9 L, Hct 26.5 L, Plt Count 185 05/20/21 14:45: Sodium 139, Potassium 3.9, BUN 50 H D, Creatinine 12.00 H* D, Glucose 144 H, Total Bilirubin 0.5, AST 59 H, ALT 40, Alkaline Phosphatase 49, Amylase 158 H, Lipase 295 Imagings Data: EXAM DESCRIPTION: RAD - Chest Single View - 05/20/2021 3:36 pm CLINICAL HISTORY: code sepsis COMPARISON: Single-view chest May 16 TECHNIQUE: AP portable chest image was obtained 05/20/2021 3:36 pm . FINDINGS: Mid and lower lung field airspace opacification. There is relative sparing of each apex. Heart size is mildly enlarged. No vascular engorgement confirmed. No cavitation or focal mass. No measurable pleural effusion and no pneumothorax. No acute bony abnormality seen. No acute aortic findings susp ected. IMPRESSION: Bilateral airspace opacification most likely pneumonia. COVID-19 pneumonia would be a primary consideration in the current clinical environment. Non COVID viral pneumonia and bilateral bacterial pneumonia are possible as well. Conclusions/Impression: ESRD -HD TIW -Seen and examined on HD Hyperkalemia -Low potassium diet -HD TIW HTN -Continue Amlodipine BID Diastolic CHF -Low sodium diet DM II with CKD -RISS Moderate malnutrition -Encourage nutrition Anemia in CKD -Continue Retacrit MWF -Transfuse PRBC as needed CKD MBD HyperPO4 Hypocalcemia -Continue Vitamin D3 -Increase Phoslo COVID-19 PNA Acute hypoxic respiratory failure, improved -Continue Oxygen -Wean steroids as tolerated Toxic metabolic encephalopathy, improved -Continue COVID treatment Case reviewed with Dr. Kirk
[2021-06-12 06:08] LABS: Hematocrit 27.6 % (36.0-45.0); RBC Red Blood Cell Count 2.84 M/uL (3.86-4.86)
[2021-06-12 06:22] LABS: Albumin 2.3 g/dL (3.4-5.0); Phosphorus 4.8 mg/dL (2.5-4.9); Potassium 3.9 mmol/L (3.5-5.1)
[2021-06-12] MEDS: INSULIN -REGULAR HUMAN 50 UNIT/0.5 ML ML SQ SCH ×4 (07:30→21:00)
[2021-06-12] MEDS: dexAMETHasone 4 MG TAB PO SCH (08:15)
[2021-06-12] MEDS: CALCIUM ACETATE 667 MG TAB PO SCH ×3 (08:15→16:55)
[2021-06-12] MEDS: FAMOTIDINE 20 MG TAB PO SCH (08:15)
[2021-06-12] MEDS: VITAMIN D 5,000 UNIT CAP PO SCH (08:15)
[2021-06-12] MEDS: THIAMINE 200 MG/2 ML INJ IVP SCH ×2 (08:16→21:00)
[2021-06-12] MEDS: AMLODIPINE 5 MG TAB PO SCH ×2 (08:16→21:00)
[2021-06-12] MEDS: MEDIHONEY 44 ML TOPICAL TUBE TOP SCH (08:17)
[2021-06-12] MEDS: NEPRO SHAKE 237 ML CAN PO SCH ×2 (08:17→21:00)
[2021-06-12] MEDS: HEPARIN 5000 UNIT/ML 1 ML VIAL SQ SCH ×2 (09:12→21:00)
--- NOTE | 2021-06-12 14:05 | P.PN ---
Subjective Date of Service: 06/12/21 Chief Complaint: COVID encepahlopathy Patient has no complain today. No issues overnight. Patient maintained on 1 L oxygen by nasal cannula. Physical Examination - Vital Signs Temperature: 97.7 F Blood Pressure: 144/63 Pulse: 95 Respirations: 16 Pulse Ox (%): 97 - Physical Exam General: Alert, In no apparent distress Neck: JVD not distended Respiratory: Other (Nonlabored breathing) Cardiovascular: No edema, Regular rate/rhythm, Normal S1 S2 Gastrointestinal: Soft and benign, Non-distended Musculoskeletal: No swelling Integumentary: No rashes Neurological: Other (No focal motor deficit) Assessment And Plan - Current Problems (Diagnosis) (1) Acute respiratory failure with hypoxia Current Visit: Yes Status: Acute (2) Pneumonia due to 2019 novel coronavirus Current Visit: Yes Status: Acute (3) Acute gastroenteritis Current Visit: Yes Status: Acute (4) End-stage renal disease on hemodialysis Current Visit: Yes Status: Acute (5) GERD (gastroesophageal reflux disease) Current Visit: No Status: Suspected Qualifiers: Esophagitis presence: esophagitis presence not specified Qualified Code(s): K21.9 - Gastro-esophageal reflux disease without esophagitis (6) Anemia in chronic kidney disease Current Visit: Yes Status: Acute - Plan Problem List Acute hypoxic respiratory failure secondary to COVID-19 pneumonia ESRD on HD Acute gastroenteritis GERD Anemia in chronic kidney disease Acute delirium /encephalopathy, likely secondary to Covid 19, possibly steroid- induced steroid induced hyperglycemia COVID-19 pneumonia/COVID encephalopathy Acute metabolic encephalopathy secondary to COVID-19 /acute delirium. Mental status significantly significantly improved. Patient interact appropriately. Respiratory status improved. Patient is stable on 1 L oxygen by nasal cannula. Currently on dexamethasone taper. Seroquel discontinued. No more agitation. Acute gastroenteritis Resolved. Patient is eating well. Hyperglycemia Blood sugar level improved. Blood sugar readings within acceptable range. Patient is eating well. Continue insulin sliding scale. Currently on 5 units Lantus insulin. ESRD on HD/hyperkalemia Nephrology is following. Routine hemodialysis per nephrology. Now getting it on Friday and Fridays. Impaired mobility Patient currently able to sit at the edge of the bed. She has not ambulated yet. PT and occupational therapy. Patient denied inpatient rehab. Family want to take her home with home health. They stated she will have 24 x 7 care. Plan is to discharge with home health for PT. Anemia of chronic kidney disease Her hemoglobin has been stable Code: full Disposition: Home with home health. Planning to discharge patient to home after hemodialysis tomorrow.
[2021-06-13 07:10] LABS: Absolute Lymphocytes (CBC) 1.4 K/uL (0.7-4.9); Basophils % 1.1 % (0-1.3); Hematocrit 30.5 % (36.0-45.0); Lymphocytes % 22.4 % (15.3-44.8); MPV 8.8 fL (7.6-11.3); RBC Red Blood Cell Count 3.13 M/uL (3.86-4.86)
[2021-06-13] MEDS: INSULIN -REGULAR HUMAN 50 UNIT/0.5 ML ML SQ SCH ×4 (07:30→20:31)
[2021-06-13 07:42] LABS: Potassium 4.6 mmol/L (3.5-5.1)
[2021-06-13] MEDS: CALCITROL 0.25 MCG CAP PO SCH (08:27)
[2021-06-13] MEDS: CALCIUM ACETATE 667 MG TAB PO SCH ×3 (08:27→16:23)
[2021-06-13] MEDS: FAMOTIDINE 20 MG TAB PO SCH (08:27)
[2021-06-13] MEDS: AMLODIPINE 5 MG TAB PO SCH ×2 (08:27→21:00)
[2021-06-13] MEDS: MEDIHONEY 44 ML TOPICAL TUBE TOP SCH (08:28)
[2021-06-13] MEDS: dexAMETHasone 4 MG TAB PO SCH (08:28)
[2021-06-13] MEDS: VITAMIN D 5,000 UNIT CAP PO SCH (08:29)
[2021-06-13] MEDS: NEPRO SHAKE 237 ML CAN PO SCH ×3 (08:29→20:30)
[2021-06-13] MEDS: THIAMINE 200 MG/2 ML INJ IVP SCH ×2 (08:29→21:00)
[2021-06-13] MEDS: HEPARIN 5000 UNIT/ML 1 ML VIAL SQ SCH ×2 (09:07→21:00)
--- NOTE | 2021-06-13 15:37 | P.DS ---
Admission Date: 05/20/21 Discharge Date: 06/14/21 Disposition: [place] HOME/HOME HEALTH CARE Discharge Condition: FAIR Reason for Admission: COVID encepahlopathy - Problems (1) Acute respiratory failure with hypoxia Status: Acute (2) Pneumonia due to 2019 novel coronavirus Status: Acute (3) Acute gastroenteritis Status: Acute (4) End-stage renal disease on hemodialysis Status: Acute (5) GERD (gastroesophageal reflux disease) Status: Suspected Qualifiers: Esophagitis presence: esophagitis presence not specified Qualified Code(s): K21.9 - Gastro-esophageal reflux disease without esophagitis (6) Anemia in chronic kidney disease Status: Acute (7) Encephalopathy due to COVID-19 virus Status: Acute (8) HTN (hypertension) Onset Date: 01/17/17 Status: Chronic Qualifiers: Hypertension type: essential hypertension Brief History of Present Illness: 76-year-old female with end-stage renal disease on dialysis, diabetes presents for evaluation of shortness of breath. She was seen in the ED 1 week ago for positive Covid test and pulmonary edema. She was treated with Lasix and was discharged after she was stabilized. She came back with worsening shortness of breath, oxygen saturation on room air in the 80%. She denied fever, nausea, vomiting, diarrhea, or chest pain. White blood count 11, procalcitonin 23, ABG within normal limits, chest x-ray noted for Covid pneumonia, troponin 1.5. Patient admitted for further management. Hospital Course: Diagnosis Acute hypoxic respiratory failure secondary to COVID-19 pneumonia ESRD on HD Acute gastroenteritis GERD Anemia in chronic kidney disease Acute delirium /encephalopathy, likely secondary to Covid 19, possibly steroid- induced steroid induced hyperglycemia COVID-19 pneumonia/COVID encephalopathy Patient admitted to the medical floor. She was initially maintained on oxygen by nasal cannula but her respiratory status worsened and oxygen requirement increased and was subsequently on high-flow oxygen. She developed acute confusion related to COVID 19 encephalopathy Patient treated with IV steroid, vitamin supplementation per COVID protocol. She was also treated with broad-spectrum antibiotics for suspected secondary bacterial pneumonia Mental status significantly significantly improved to the point she was able to interact appropriately. Respiratory status also improved. Patient is now stable on 1 L oxygen by nasal cannula. Oral dexamethasone tapered to 2 mg daily. She was on Seroquel for acute delirium and agitation which was subsequently discontinued Patient clinically improved and deemed stable for discharge Acute gastroenteritis Resolved. Patient is eating well. Hyperglycemia Blood sugar level improved. Blood sugar readings within acceptable range with 5 units of Lantus insulin and insulin sliding scale. Patient is eating well. ESRD on HD/hyperkalemia Patient followed by nephrology. She underwent routine hemodialysis. Now getting it on Friday and Fridays. Impaired mobility Patient currently able to sit at the edge of the bed. She has not ambulated yet. Received PT and occupational therapy sessons. Patient denied of inpatient rehab. Family requested to take her home with home health. They stated she will have 24 x 7 care. Patient discharged with home health for PT and OT. Anemia of chronic kidney disease Her hemoglobin has been stable. Vital Signs/Physical Exam: Temp Pulse Resp BP Pulse Ox 98.0 F 99 H 18 142/74 H 94 06/13/21 12:00 06/13/21 12:00 06/13/21 12:00 06/13/21 12:00 06/13/21 12:00 General: In no apparent distress, Other (Awake and communicating meaningfully.) HEENT: Mucous membr. moist/pink Neck: JVD not distended Respiratory: Other (Nonlabored breathing) Cardiovascular: Normal S1 S2 Gastrointestinal: Soft and benign, Non-distended, No tenderness Musculoskeletal: No swelling Neurological: Other (No focal motor deficit) Laboratory Data at Discharge: WBC 6.20 K/uL (4.3-10.9) 06/13/21 06:52 Hgb 9.9 g/dL (12.0-15.0) L 06/13/21 06:52 Hct 30.5 % (36.0-45.0) L 06/13/21 06:52 Plt Count 229 K/uL (152-406) 06/13/21 06:52 PT 12.9 SECONDS (9.5-12.5) H 05/20/21 14:45 INR 1.12 05/20/21 14:45 APTT 30.2 SECONDS (24.3-36.9) 05/20/21 14:45 Sodium 139 mmol/L (136-145) 06/13/21 06:52 Potassium 4.6 mmol/L (3.5-5.1) 06/13/21 06:52 BUN 84 mg/dL (7-18) H D 06/13/21 06:52 Creatinine 8.61 mg/dL (0.55-1.3) H* D 06/13/21 06:52 Glucose 83 mg/dL (74-106) 06/13/21 06:52 Phosphorus 4.8 mg/dL (2.5-4.9) 06/12/21 05:12 Magnesium 2.0 mg/dL (1.8-2.4) 06/12/21 05:12 Total Bilirubin 0.4 mg/dL (0.2-1.0) 06/11/21 05:50 AST 16 U/L (15-37) 06/11/21 05:50 ALT 30 U/L (12-78) 06/11/21 05:50 Alkaline Phosphatase 67 U/L (45-117) 06/11/21 05:50 Triglycerides 187 mg/dL (<150) H 05/21/21 04:35 Cholesterol 168 mg/dL (<200) 05/21/21 04:35 HDL Cholesterol 28 mg/dL (40-60) L 05/21/21 04:35 Cholesterol/HDL Ratio 6.00 05/21/21 04:35 Amylase 158 U/L (25-115) H 05/20/21 14:45 Lipase 295 U/L (73-393) 05/20/21 14:45 Home Medications: Brimonidine Tartrate/Timolol [Combigan 0.2%-0.5% Eye Drops] 1 drop EACH EYE BID 12/13/19 Amlodipine [Norvasc*] 5 mg PO BID #30 tab 06/13/21 Benzonatate [Tessalon Perle*] 100 mg PO TID PRN #30 cap 06/13/21 Calcitrol [Rocaltrol*] 0.5 mcg PO DAILY #30 cap 06/13/21 Calcium Acetate [Phoslo*] 1,334 mg PO TIDWM #180 tab 06/13/21 Cholecalciferol (Vitamin D3) [Vitamin D 5,000 IU Cap*] 5,000 unit PO DAILY #30 cap 06/13/21 Epoetin [Retacrit] 10,000 unit SQ M,W,F vial 06/13/21 Famotidine [Pepcid*] 20 mg PO DAILY #30 tab 06/13/21 Heparin [Heparin 1,000 units/mL *] 6,000 unit IV EVERY HD PRN vial 06/13/21 Insulin Glargine Human [Lantus*] 5 units SQ DAILY #10 ml 06/13/21 Mannitol 25% [Mannitol*] 12.5 gm IV EVERY HD PRN vial 06/13/21 Medihoney [Medihoney Woundcare Gel*] 1 appl TOP DAILY #1 tube 06/13/21 Nepro Shake [Nepro*] 237 ml PO BID #60 can 06/13/21 dexAMETHasone [Dexamethasone] 2 mg PO DAILY #7 tablet 06/13/21 guaiFENesin [Robitussin 100MG/5ML*] 5 ml PO QID PRN #30 ucup 06/13/21 New Medications: dexAMETHasone [Dexamethasone] 2 mg PO DAILY #7 tablet Insulin Glargine Human [Lantus*] 5 units SQ DAILY #10 ml Medihoney [Medihoney Woundcare Gel*] 1 appl TOP DAILY #1 tube Nepro Shake [Nepro*] 237 ml PO BID #60 can Amlodipine [Norvasc*] 5 mg PO BID #30 tab Famotidine [Pepcid*] 20 mg PO DAILY #30 tab Calcium Acetate [Phoslo*] 1,334 mg PO TIDWM #180 tab guaiFENesin [Robitussin 100MG/5ML*] 5 ml PO QID PRN #30 ucup PRN Reason: Cough Calcitrol [Rocaltrol*] 0.5 mcg PO DAILY #30 cap Benzonatate [Tessalon Perle*] 100 mg PO TID PRN #30 cap PRN Reason: Cough Cholecalciferol (Vitamin D3) [Vitamin D 5,000 IU Cap*] 5,000 unit PO DAILY #30 cap Diet: ADA Activity: Fall precautions Followup: Herber Hoffman MD [ACTIVE - CAN ADMIT] - 1-2 Weeks (Call to schedule follow up appointment.) Pierre Dunbar DO [ACTIVE - CAN ADMIT] - (as scheduled) Time spent managing pt's care (in minutes): 40
[2021-06-13] MEDS: EPOETIN ALFA 10,000 UNIT/ML VIAL SQ SCH (16:24)
--- NOTE | 2021-06-13 17:43 | P.PN ---
Subjective Date of Service: 06/13/21 Chief Complaint: COVID encepahlopathy Patient has no complain today. Patient maintained on 1 L oxygen by nasal cannula. Physical Examination - Vital Signs Temperature: 97.7 F Blood Pressure: 159/77 Pulse: 98 Respirations: 16 Pulse Ox (%): 98 - Physical Exam General: Alert, In no apparent distress HEENT: Mucous membr. moist/pink Neck: JVD not distended Respiratory: Other (Nonlabored breathing.) Cardiovascular: Regular rate/rhythm, Normal S1 S2 Gastrointestinal: Soft and benign, Non-distended Musculoskeletal: No swelling Integumentary: No rashes Neurological: Other (No focal motor deficit) Assessment And Plan - Current Problems (Diagnosis) (1) Acute respiratory failure with hypoxia Current Visit: Yes Status: Acute (2) Pneumonia due to 2019 novel coronavirus Current Visit: Yes Status: Acute (3) Acute gastroenteritis Current Visit: Yes Status: Acute (4) End-stage renal disease on hemodialysis Current Visit: Yes Status: Acute (5) GERD (gastroesophageal reflux disease) Current Visit: No Status: Suspected Qualifiers: Esophagitis presence: esophagitis presence not specified Qualified Code(s): K21.9 - Gastro-esophageal reflux disease without esophagitis (6) Anemia in chronic kidney disease Current Visit: Yes Status: Acute (7) Encephalopathy due to COVID-19 virus Current Visit: Yes Status: Acute (8) HTN (hypertension) Onset Date: 01/17/17 Current Visit: No Status: Chronic Qualifiers: Hypertension type: essential hypertension Qualified Code(s): I10 - Essential (primary) hypertension - Plan Problem List Acute hypoxic respiratory failure secondary to COVID-19 pneumonia ESRD on HD Acute gastroenteritis GERD Anemia in chronic kidney disease Acute delirium /encephalopathy, likely secondary to Covid 19, possibly steroid- induced steroid induced hyperglycemia COVID-19 pneumonia/COVID encephalopathy Acute metabolic encephalopathy secondary to COVID-19 /acute delirium. Mental status significantly significantly improved. Patient interact appropriately. Patient is stable on 1 L oxygen by nasal cannula. Currently on dexamethasone taper. Seroquel discontinued. No more agitation. Acute gastroenteritis Patient is eating well. Diarrhea improved. Hyperglycemia Blood sugar level improved. Blood sugar readings within acceptable range. Continue insulin sliding scale. Currently on 5 units Lantus insulin. ESRD on HD/hyperkalemia Nephrology is following. Routine hemodialysis per nephrology. Hemodialysis planned for tonight. Impaired mobility Patient currently able to sit at the edge of the bed. She has not ambulated yet. PT and occupational therapy. Patient denied of inpatient rehab. Family request to take her home with home health. They stated she will have 24 x 7 care. Plan is to discharge with home health for PT. Anemia of chronic kidney disease Her hemoglobin has been stable Code: full Disposition: Home with home health. Planning to discharge patient to home tomorrow a.m.
[2021-06-13] MEDS ORDERED: LACTULOSE 20 GM/30 ML UCUP PO ONE (20:23)
--- NOTE | 2021-06-13 20:38 | P.PN ---
Date of Service: 06/13/21 Vital Signs Temp Pulse Resp BP Pulse Ox 97.7 F 98 H 16 159/77 H 98 06/13/21 17:43 06/13/21 17:43 06/13/21 17:43 06/13/21 17:43 06/13/21 17:43 Medications Acetaminophen (Acetaminophen 500 Mg Tab) 500 mg PO Q6H PRN PRN Reason: fever Last Admin: 06/10/21 09:36 Dose: 500 mg Documented by: Amlodipine Besylate (Amlodipine 5 Mg Tab) 5 mg PO BID [facility] Last Admin: 06/13/21 08:27 Dose: 5 mg Documented by: Benzonatate (Benzonatate 100 Mg Cap) 100 mg PO TID PRN PRN Reason: COUGH Last Admin: 05/23/21 08:37 Dose: 100 mg Documented by: Calcitriol (Calcitrol 0.25 Mcg Cap) 0.5 mcg PO DAILY [facility] Last Admin: 06/13/21 08:27 Dose: 0.5 mcg Documented by: Calcium Acetate (Calcium Acetate 667 Mg Tab) 1,334 mg PO TIDWM [facility] Last Admin: 06/13/21 16:23 Dose: 1,334 mg Documented by: Cholecalciferol (Vitamin D 5,000 Unit Cap) 5,000 unit PO DAILY [facility] Last Admin: 06/13/21 08:29 Dose: 5,000 unit Documented by: Dexamethasone (Dexamethasone 4 Mg Tab) 2 mg PO DAILY [facility] Last Admin: 06/13/21 08:28 Dose: 2 mg Documented by: Dextrose (D50w 25 Gm/50 Ml Syringe) 12.5 gm IV PRN PRN; Protocol PRN Reason: HYPOGLYCEMIA Last Admin: 06/02/21 05:27 Dose: 12.5 gm Documented by: Docusate Sodium (Docusate Na 100 Mg Cap) 100 mg PO BID [facility] Emollient Gel (Medihoney 44 Ml Topical Tube) 1 appl TOP DAILY [facility] Last Admin: 06/13/21 08:28 Dose: 1 kendra Documented by: Enteral Nutritional Formula (Nepro Shake 237 Ml Can) 237 ml PO BID [facility] Last Admin: 06/13/21 20:30 Dose: 237 ml Documented by: Epoetin Gilles (Epoetin Gilles 10,000 Unit/Ml Vial) 10,000 unit SQ M,W,F [facility] Last Admin: 06/13/21 16:24 Dose: 10,000 unit Documented by: Famotidine (Famotidine 20 Mg Tab) 20 mg PO DAILY SELMA; Protocol Last Admin: 06/13/21 08:27 Dose: 20 mg Documented by: Glucagon (Glucagon 1 Mg/Vial) 1 mg IM 1X PRN; Protocol PRN Reason: HYPOGLYCEMIA Guaifenesin (Guaifenesin 100 Mg/5 Ml Ucup) 100 mg FT QID PRN PRN Reason: COUGH Last Admin: 05/31/21 08:15 Dose: 100 mg Documented by: Heparin Sodium (Porcine) (Heparin 5000 Unit/Ml 1 Ml Vial) 5,000 unit SQ Q12HR SELMA Last Admin: 06/13/21 09:07 Dose: 5,000 unit Documented by: Heparin Sodium (Porcine) (Heparin 1,000 Unit/Ml Vial) 6,000 unit IV EVERY HD PRN PRN Reason: AFTER EACH Stop: 06/16/21 23:59 Hydralazine HCl (Hydralazine Hcl 20 Mg/Ml Vial) 10 mg IV Q6HP PRN PRN Reason: Titrate to SBP (MUST DEFINE) Albumin Human (Albumin 25%) 50 mls @ 100 mls/hr IV EVERY HD SELMA Insulin Glargine (Insulin Glargine 100 Units/Ml) 5 units SQ DAILY SELMA Insulin Human Regular (Insulin -Regular Human 50 Unit/0.5 Ml Ml) 0 unit SQ ACHS [facility]; Protocol Last Admin: 06/13/21 20:31 Dose: Not Given Documented by: Mannitol (Mannitol 25% 12.5 Gm/50 Ml Vial) 12.5 gm IV EVERY HD PRN PRN Reason: Titrate to SBP (MUST DEFINE) Nutritional Formula (Vital Af 1,000 Ml Bot) 0 ml RTH CONT SELMA Sterile Water (Water For Inj,Sterile 10 Ml) 1.2 ml IM UD PRN PRN Reason: DILUTION OF MED Last Admin: 05/25/21 13:45 Dose: 1.2 ml Documented by: Thiamine HCl (Thiamine 200 Mg/2 Ml Inj) 200 mg IVP BID [facility] Last Admin: 06/13/21 08:29 Dose: 200 mg Documented by: Microbiology Results 05/20/21 15:00 Blood - Blood Aerobic Blood Culture - Final No growth in 5 days. 05/20/21 15:00 Blood - Blood Anaerobic Blood Culture - Final No growth in 5 days. 05/20/21 14:45 Blood - Blood Aerobic Blood Culture - Final No growth in 5 days. 05/20/21 14:45 Blood - Blood Anaerobic Blood Culture - Final No growth in 5 days. Assessment/ Plan: Nephrology Progress Note Constipation Weakness and fatigue No acute events overnight Vitals, medications blood work and imaging reviewed in the chart General: Awake HEENT: Atraumatic Neck: Supple Respiratory: Diminished Cardiovascular: No edema Gastrointestinal: Non-distended Musculoskeletal: No clubbing, No contractures Integumentary: No rashes, No cyanosis Neurological: Normal speech Laboratory Data (last 24 hrs) 05/20/21 14:45: PT 12.9 H, INR 1.12, APTT 30.2 05/20/21 14:45: WBC 11.10 H D, Hgb 8.9 L, Hct 26.5 L, Plt Count 185 05/20/21 14:45: Sodium 139, Potassium 3.9, BUN 50 H D, Creatinine 12.00 H* D, Glucose 144 H, Total Bilirubin 0.5, AST 59 H, ALT 40, Alkaline Phosphatase 49, Amylase 158 H, Lipase 295 Imagings Data: EXAM DESCRIPTION: RAD - Chest Single View - 05/20/2021 3:36 pm CLINICAL HISTORY: code sepsis COMPARISON: Single-view chest May 16 TECHNIQUE: AP portable chest image was obtained 05/20/2021 3:36 pm . FINDINGS: Mid and lower lung field airspace opacification. There is relative sparing of each apex. Heart size is mildly enlarged. No vascular engorgement confirmed. No cavitation or focal mass. No measurable pleural effusion and no pneumothorax. No acute bony abnormality seen. No acute aortic findings suspected. IMPRESSION: Bilateral airspace opacification most likely pneumonia. COVID-19 pneumonia would be a primary consideration in the current clinical environment. Non COVID viral pneumonia and bilateral bacterial pneumonia are possible as well. Conclusions/Impression: ESRD -HD TIW Hyperkalemia -Low potassium diet -HD TIW HTN -Continue Amlodipine BID Diastolic CHF -Low sodium diet DM II with CKD -RISS Moderate malnutrition -Encourage nutrition Anemia in CKD -Continue Retacrit MWF -Transfuse PRBC as needed CKD MBD HyperPO4 Hypocalcemia -Continue Vitamin D3 -Continue Phoslo COVID-19 PNA Acute hypoxic respiratory failure, improved -Continue Oxygen -Wean steroids as tolerated Toxic metabolic encephalopathy, improved -Continue COVID treatment Slow transit constipation -Lactulose X1 -Start Colace bid
[2021-06-13] MEDS: DOCUSATE NA 100 MG CAP PO SCH (21:00)
[2021-06-14] MEDS: INSULIN -REGULAR HUMAN 50 UNIT/0.5 ML ML SQ SCH (07:30)
[2021-06-14] MEDS: AMLODIPINE 5 MG TAB PO SCH (07:48)
[2021-06-14] MEDS: HEPARIN 5000 UNIT/ML 1 ML VIAL SQ SCH (07:48)
[2021-06-14] MEDS: dexAMETHasone 4 MG TAB PO SCH (07:49)
[2021-06-14] MEDS: FAMOTIDINE 20 MG TAB PO SCH (07:49)
[2021-06-14] MEDS: THIAMINE 200 MG/2 ML INJ IVP SCH (07:49)
[2021-06-14] MEDS: CALCIUM ACETATE 667 MG TAB PO SCH (07:49)
[2021-06-14] MEDS: VITAMIN D 5,000 UNIT CAP PO SCH (07:49)
[2021-06-14] MEDS: CALCITROL 0.25 MCG CAP PO SCH (07:49)
[2021-06-14] MEDS: DOCUSATE NA 100 MG CAP PO SCH (07:50)
[2021-06-14] MEDS: MEDIHONEY 44 ML TOPICAL TUBE TOP SCH (07:50)
[2021-06-14] MEDS: NEPRO SHAKE 237 ML CAN PO SCH (07:50)
[2021-06-14 08:33] VITALS: BP 174/79; TEMP 98.3
[2021-06-14 09:42] VITALS: O2SAT 92
--- NOTE | 2021-06-14 10:40 | P.PN ---
Date of Service: 06/14/21 Vital Signs Temp Pulse Resp BP Pulse Ox 98.3 F 106 H 18 174/79 H 93 06/14/21 08:00 06/14/21 08:00 06/14/21 08:00 06/14/21 08:00 06/14/21 08:00 Medications Acetaminophen (Acetaminophen 500 Mg Tab) 500 mg PO Q6H PRN PRN Reason: fever Last Admin: 06/10/21 09:36 Dose: 500 mg Documented by: Amlodipine Besylate (Amlodipine 5 Mg Tab) 5 mg PO BID [facility] Last Admin: 06/14/21 07:48 Dose: 5 mg Documented by: Benzonatate (Benzonatate 100 Mg Cap) 100 mg PO TID PRN PRN Reason: COUGH Last Admin: 05/23/21 08:37 Dose: 100 mg Documented by: Calcitriol (Calcitrol 0.25 Mcg Cap) 0.5 mcg PO DAILY [facility] Last Admin: 06/14/21 07:49 Dose: 0.5 mcg Documented by: Calcium Acetate (Calcium Acetate 667 Mg Tab) 1,334 mg PO TIDWM [facility] Last Admin: 06/14/21 07:49 Dose: 1,334 mg Documented by: Cholecalciferol (Vitamin D 5,000 Unit Cap) 5,000 unit PO DAILY [facility] Last Admin: 06/14/21 07:49 Dose: 5,000 unit Documented by: Dexamethasone (Dexamethasone 4 Mg Tab) 2 mg PO DAILY [facility] Last Admin: 06/14/21 07:49 Dose: 2 mg Documented by: Dextrose (D50w 25 Gm/50 Ml Syringe) 12.5 gm IV PRN PRN; Protocol PRN Reason: HYPOGLYCEMIA Last Admin: 06/02/21 05:27 Dose: 12.5 gm Documented by: Docusate Sodium (Docusate Na 100 Mg Cap) 100 mg PO BID [facility] Last Admin: 06/14/21 07:50 Dose: Not Given Documented by: Emollient Gel (Medihoney 44 Ml Topical Tube) 1 appl TOP DAILY [facility] Last Admin: 06/14/21 07:50 Dose: 1 kendra Documented by: Enteral Nutritional Formula (Nepro Shake 237 Ml Can) 237 ml PO BID [facility] Last Admin: 06/14/21 07:50 Dose: 237 ml Documented by: Epoetin Gilles (Epoetin Gilles 10,000 Unit/Ml Vial) 10,000 unit SQ M,W,F [facility] Last Admin: 06/13/21 16:24 Dose: 10,000 unit Documented by: Famotidine (Famotidine 20 Mg Tab) 20 mg PO DAILY SELMA; Protocol Last Admin: 06/14/21 07:49 Dose: 20 mg Documented by: Glucagon (Glucagon 1 Mg/Vial) 1 mg IM 1X PRN; Protocol PRN Reason: HYPOGLYCEMIA Guaifenesin (Guaifenesin 100 Mg/5 Ml Ucup) 100 mg FT QID PRN PRN Reason: COUGH Last Admin: 05/31/21 08:15 Dose: 100 mg Documented by: Heparin Sodium (Porcine) (Heparin 5000 Unit/Ml 1 Ml Vial) 5,000 unit SQ Q12HR [facility]EL[facility] Last Admin: 06/14/21 07:48 Dose: 5,000 unit Documented by: Heparin Sodium (Porcine) (Heparin 1,000 Unit/Ml Vial) 6,000 unit IV EVERY HD PRN PRN Reason: AFTER EACH Stop: 06/16/21 23:59 Hydralazine HCl (Hydralazine Hcl 20 Mg/Ml Vial) 10 mg IV Q6HP PRN PRN Reason: Titrate to SBP (MUST DEFINE) Albumin Human (Albumin 25%) 50 mls @ 100 mls/hr IV EVERY HD SELMA Insulin Glargine (Insulin Glargine 100 Units/Ml) 5 units SQ DAILY [facility] Insulin Human Regular (Insulin -Regular Human 50 Unit/0.5 Ml Ml) 0 unit SQ ACHS [facility]; Protocol Last Admin: 06/14/21 07:30 Dose: Not Given Documented by: Mannitol (Mannitol 25% 12.5 Gm/50 Ml Vial) 12.5 gm IV EVERY HD PRN PRN Reason: Titrate to SBP (MUST DEFINE) Nutritional Formula (Vital Af 1,000 Ml Bot) 0 ml RTH CONT SELMA Sterile Water (Water For Inj,Sterile 10 Ml) 1.2 ml IM UD PRN PRN Reason: DILUTION OF MED Last Admin: 05/25/21 13:45 Dose: 1.2 ml Documented by: Thiamine HCl (Thiamine 200 Mg/2 Ml Inj) 200 mg IVP BID SELMA Last Admin: 06/14/21 07:49 Dose: 200 mg Documented by: Microbiology Results 05/20/21 15:00 Blood - Blood Aerobic Blood Culture - Final No growth in 5 days. 05/20/21 15:00 Blood - Blood Anaerobic Blood Culture - Final No growth in 5 days. 05/20/21 14:45 Blood - Blood Aerobic Blood Culture - Final No growth in 5 days. 05/20/21 14:45 Blood - Blood Anaerobic Blood Culture - Final No growth in 5 days. Assessment/ Plan: Nephrology Progress Note +BM with Lactulose Weakness and fatigue No acute events overnight Vitals, medications blood work and imaging reviewed in the chart General: Awake HEENT: Atraumatic Neck: Supple Respiratory: Diminished Cardiovascular: No edema Gastrointestinal: Non-distended Musculoskeletal: No clubbing, No contractures Integumentary: No rashes, No cyanosis Neurological: Normal speech Laboratory Data (last 24 hrs) 05/20/21 14:45: PT 12.9 H, INR 1.12, APTT 30.2 05/20/21 14:45: WBC 11.10 H D, Hgb 8.9 L, Hct 26.5 L, Plt Count 185 05/20/21 14:45: Sodium 139, Potassium 3.9, BUN 50 H D, Creatinine 12.00 H* D, Glucose 144 H, Total Bilirubin 0.5, AST 59 H, ALT 40, Alkaline Phosphatase 49, Amylase 158 H, Lipase 295 Imagings Data: EXAM DESCRIPTION: RAD - Chest Single View - 05/20/2021 3:36 pm CLINICAL HISTORY: code sepsis COMPARISON: Single-view chest May 16 TECHNIQUE: AP portable chest image was obtained 05/20/2021 3:36 pm . FINDINGS: Mid and lower lung field airspace opacification. There is relative sparing of each apex. Heart size is mildly enlarged. No vascular engorgement confirmed. No cavitation or focal mass. No measurable pleural effusion and no pneumothorax. No acute bony abnormality seen. No acute aortic findings suspected. IMPRESSION: Bilateral airspace opacification most likely pneumonia. COVID-19 pneumonia would be a primary consideration in the current clinical environment. Non COVID viral pneumonia and bilateral bacterial pneumonia are possible as well. Conclusions/Impression: ESRD -HD TIW Hyperkalemia -Low potassium diet -HD TIW HTN -Continue Amlodipine BID Diastolic CHF -Low sodium diet DM II with CKD -RISS Moderate malnutrition -Encourage nutrition Anemia in CKD -Continue Retacrit MWF -Transfuse PRBC as needed CKD MBD HyperPO4 Hypocalcemia -Continue Vitamin D3 -Continue Phoslo COVID-19 PNA Acute hypoxic respiratory failure, improved -Continue Oxygen -Wean steroids as tolerated Toxic metabolic encephalopathy, improved -Continue COVID treatment Slow transit constipation -Continue Colace BID
== END 2021-06-14 10:55 | disposition home health service (06) | DRG 871 ==
LOC: SUPCPDRO 14:41 → ER 14:41 → 3RD-ICU 21:29 → 4TH 06-03 18:31
PROVIDERS: ADMIT Internal Medicine; ATTEND Internal Medicine
PROC: 5A09457 Assistance with Respiratory Ventilation, 24-96 Consecutive Hours, Continuous Positive Airway Pressure (ICD-10-PCS; principal; 2021-05-20)
PROC: 5A1D70Z Performance of Urinary Filtration, Intermittent, Less than 6 Hours Per Day (ICD-10-PCS; 2021-05-22)
DX: A41.89 Other specified sepsis (principal); U07.1 COVID-19; L89.313 Pressure ulcer of right buttock, stage 3; J12.82 Pneumonia due to coronavirus disease 2019; N18.6 End stage renal disease; J96.01 Acute respiratory failure with hypoxia; G92.9 Unspecified toxic encephalopathy; J15.9 Unspecified bacterial pneumonia; I22.2 Subsequent non-ST elevation (NSTEMI) myocardial infarction; I21.9 Acute myocardial infarction, unspecified; I50.32 Chronic diastolic (congestive) heart failure; I13.2 Hypertensive heart and chronic kidney disease with heart failure and with stage 5 chronic kidney disease, or end stage renal disease; E44.0 Moderate protein-calorie malnutrition; E11.22 Type 2 diabetes mellitus with diabetic chronic kidney disease; T38.0X5A Adverse effect of glucocorticoids and synthetic analogues, initial encounter; E09.65 Drug or chemical induced diabetes mellitus with hyperglycemia; D63.1 Anemia in chronic kidney disease; K21.9 Gastro-esophageal reflux disease without esophagitis; E83.51 Hypocalcemia; K52.9 Noninfective gastroenteritis and colitis, unspecified; M10.9 Gout, unspecified; R65.20 Severe sepsis without septic shock; L89.322 Pressure ulcer of left buttock, stage 2; Z88.5 Allergy status to narcotic agent; Z99.2 Dependence on renal dialysis; Z88.8 Allergy status to other drugs, medicaments and biological substances; Z79.899 Other long term (current) drug therapy; Z90.710 Acquired absence of both cervix and uterus; Z68.29 Body mass index [BMI] 29.0-29.9, adult; Z74.09 Other reduced mobility; E87.5 Hyperkalemia; R53.81 Other malaise; E83.39 Other disorders of phosphorus metabolism; Z79.4 Long term (current) use of insulin; K59.01 Slow transit constipation
CPT/HCPCS: 36415; 71045; 74018; 80048; 80053; 80061; 80069; 80076; 82150; 82550; 82553; 82728; 82805; 82947; 83605; 83690; 83735; 84100; 84145; 84484; 85025; 85027; 85379; 85610; 85730; 86140; 86704; 86706; 86803; 87040; 87324; 87340; 87449; 90935; 93005; 94002; 94003; 94760; 96372; 97110; 97112; 97161; 97165; 97530; 99251; 99285; J0360; J0692; J1100; J1644; J1815; J2270; J2920; J2930; J3010; J3370; J3411; J3486; J7030; J7040; J7050; J7512; J8540; Q5105; Q5106; U0003

== ENCOUNTER 2021-12-03 06:04 | Inpatient (IN) | payer OTHER ==
--- OUTSIDE RECORDS SUMMARY | 2021-12-03 06:06 | XMS REPORT | Continuity of Care Document ---
:1945 Author Organization [facility] t Address [address] [place] [address] Dr. Ruiz [address] [place] [id number] Care Team Providers Name Role Phone FRANCISCA OSUAN Attending Clinician Unavailable Payers Payer Name Policy Type Policy Number Effective Date Expiration Date S oleg MEDICARE PART A [id number] 2010 \T\ B 00:00:00 Problems This patient has no known problems. Allergies, Adverse Reactions, Alerts Allergy Allergy Status Severity Reaction(s) Onset Inactive Treating Comm ents Source Name Type Date Date Clinician OXYCODON DRUG Active High Hallucinates Un tate E 3-23 ity of HCL-OXYC 00:00: [place] ODONE- [address] [place] [address] A Taylor Social History Social Habit Start Date Stop Date Quantity Comments Source Sex Assigned At [address] [facility] - 00:00:00 00:00:00 [facility] Medications This patient has no known medications. Procedures This patient has no known procedures. Encounters Start End Encounter Admission Attending Care Care Encounter Source Date/Time Date/Time Type Type Clinicians Facility Department ID 2018-03-12 2018-03-12 Outpatient Tatiana OSUNA [facility] [id number] 635 [facility] 09:30:00 10:31:36 EVARISTO mcadams [facility] Results Test Description Test Time Test Comments Results Result Comments Source SARS-COV2/RT-PCR ([facility]) 2019-12-13 12:54:00 Test Item Value Reference Range Interpretation Comme nts SARS-COV2/RT-PCR (test code = [id number]) Not Detected Not Detected, N egative SARS-COV-2 PERFORMING LAB (test code = [facility] [id number] Negative results do not preclude SARS-CoV-2 infection and should not be used as the sole basis for patient management decisions. Negative results must be combined with clinical observations, patient history, and epidemiological information. A false negative result may occur if a specimen is improperly collected, transported or handled.The limit of detection for this assay is 250 copies/mL.This SARS CoV-2 test is a rapid, real-time RT-PCR test intended for the qualitative detection of nucleic acid from SARS-CoV-2 in a nasopharyngeal swab specimen collected from individuals suspected of COVID-19 by their healthcare provider.This test has not been Food and Drug Administration (FDA) cleared or approved and has been authorized by FDA under an Emergency Use Authorization (EUA). This EUA will be effective until the declaration that circumstances exist justifying the authorization of the emergency use of in vitro diagnostic tests for detection and/or diagnosis of COVID-19 is terminated under Section 564(b)(2) of the Act or the EUA is revoked under Section 564(g) of the Act.Fact Sheet for Healthcare Pro viders:https://www.[employer].[facility]/Documents/Xpert%20Xpress%20SARS%20CoV-2/Fact%20Sh eets/3023802%15RREO-WFV-8%20HEALTHCARE%20PROVIDERS%20FACT%20SHEET.pdfFact Sheet for Healthcare Patients:https://www.[employer]/Documents/Xpert%20Xpress%20SARS%20CoV-2/Fact%20Sheets/3023801%20SARS-COV -2%20PATIENT%20FACT%20SHEET.pdfPerforming Laboratory:[facility] [place] [address]
[2021-12-03 07:12] LABS: Absolute Lymphocytes (CBC) 2.4 K/uL (0.7-4.9); Lymphocytes % 24.7 % (15.3-44.8); MPV 9.2 fL (7.6-11.3); RBC Red Blood Cell Count 3.75 M/uL (3.86-4.86)
[2021-12-03 07:16] LABS: Protime INR 0.98
[2021-12-03] MEDS ORDERED: ALBUTEROL 2.5 MG/3 ML NEB SOL ONE (07:17)
[2021-12-03] MEDS ORDERED: IPRATROPIUM BROM 0.5MG/2.5ML ONE (07:18)
[2021-12-03 07:20] LABS: Arterial Blood Carboxyhemoglob 0.9 % (0-1.5); Blood Gas Oxyhemoglobin 95.6 % (94-97); Blood O2 Saturation 97.8 % (92-98.5)
--- NOTE | 2021-12-03 07:24 | RAD REPORT ---
EXAM DESCRIPTION: RAD - Chest Single View - 12/03/2021 7:01 am CLINICAL HISTORY: SOB COMPARISON: Portable 05/25/2021 TECHNIQUE: AP portable chest image was obtained 12/03/2021 7:01 am . FINDINGS: Dense consolidation is present in the inferolateral right upper lobe abutting the minor fi ssure. This is most likely acute pneumonia. No cavitation component. Lung volumes are low accentuatin g baseline interstitial pattern. No other area of dense consolidation is seen though there is airspac e opacification in the lower left lung field. Additional site of pneumonia is possible in this can be monitored on follow-up imaging. Heart and vasculature are normal. No measurable pleural effusion and no pneumothorax. No acute bony abnormality seen. No acute aortic findings suspected. IMPRESSION: Consolidated pneumonia in the right upper lobe. Airspace opacification in the lower left lung field without dense consolidation. This could be additi onal site of pneumonia or accentuation of the patient's baseline lung parenchymal pattern due to port able technique and low lung volume. This can be monitored along with the right upper lobe finding. Heart size is stable. A small component of failure or volume overload superimposed on the above findi ngs cannot be excluded.
[2021-12-03 07:29] LABS: Albumin 3.4 g/dL (3.4-5.0); Bilirubin Direct 0.1 mg/dL (0-0.2); Bilirubin Total 0.5 mg/dL (0.2-1.0); Potassium 5.4 mmol/L (3.5-5.1); Protein, Total 7.8 g/dL (6.4-8.2)
[2021-12-03 07:30] LABS: Magnesium 1.8 mg/dL (1.8-2.4); Troponin High Sensitivity 36.3 pg/mL (<58.9)
--- NOTE | 2021-12-03 07:54 | EDPHYS ---
Physician Documentation [facility] Name: Kevin Chou Age: 76 yrs Sex: Female : 1945 Arrival Date: 12/03/2021 Time: 06:06 Bed 5 Private MD: ED Physician Lopez Rees HPI: 12/03 06:49 This 76 yrs old Black Female presents to ER via Wheelchair with complaints of Breathing mh7 Difficulty. 06:49 The patient has shortness of breath at rest. Onset: The symptoms/episode began/occurred mh7 last night. Duration: The symptoms are continuous, and are steadily getting worse. The patient's shortness of breath is aggravated by coughing, is alleviated by nothing. Associated signs and symptoms: Pertinent negatives: chest pain, productive cough, diaphoresis, dizziness, fever, hemoptysis, loss of consciousness, nausea, numbness in extremities, visual changes, vomiting. Severity of symptoms: At their worst the symptoms were moderate last night, in the emergency department the symptoms are unchanged. Historical: - Allergies: 06:34 Percodan; lp1 06:34 Aspirin; lp1 - Home Meds: 06:34 amlodipine 10 mg tab 1 tab once daily [Active]; lp1 - PMHx: 06:34 diabetes mellitus; Hypertension; kidney disease; Dialysis MWF; lp1 - PSHx: 06:34 Left arm fistula; lp1 - Immunization history:: Adult Immunizations up to date. - Social history:: Smoking status: Patient denies any tobacco usage or history of. ROS: 06:49 Constitutional: Negative for fever, chills, and weight loss, Eyes: Negative for injury, mh7 pain, redness, and discharge, ENT: Negative for injury, pain, and discharge, Neck: Negative for injury, pain, and swelling, Cardiovascular: Negative for chest pain, palpitations, and edema, Abdomen/GI: Negative for abdominal pain, nausea, vomiting, diarrhea, and constipation, Back: Negative for injury and pain, : Negative for injury, bleeding, discharge, and swelling, MS/Extremity: Negative for injury and deformity, Skin: Negative for injury, rash, and discoloration, Neuro: Negative for headache, weakness, numbness, tingling, and seizure, Psych: Negative for depression, anxiety, suicide ideation, homicidal ideation, and hallucinations, Allergy/Immunology: Negative for hives, rash, and allergies, Endocrine: Negative for neck swelling, polydipsia, polyuria, polyphagia, and marked weight changes, Hematologic/Lymphatic: Negative for swollen nodes, abnormal bleeding, and unusual bruising. Exam: 06:49 Head/Face: Normocephalic, atraumatic. Eyes: Pupils equal round and reactive to light, mh7 extra-ocular motions intact. Lids and lashes normal. Conjunctiva and sclera are non-icteric and not injected. Cornea within normal limits. Periorbital areas with no swelling, redness, or edema. Neck: Trachea midline, no thyromegaly or masses palpated, and no cervical lymphadenopathy. Supple, full range of motion without nuchal rigidity, or vertebral point tenderness. No Meningismus. 06:49 Chest/axilla: Normal chest wall appearance and motion. Nontender with no deformity. No lesions are appreciated. 06:49 Abdomen/GI: Soft, non-tender, with normal bowel sounds. No distension or tympany. No guarding or rebound. No evidence of tenderness throughout. Back: No spinal tenderness. No costovertebral tenderness. Full range of motion. Skin: Warm, dry with normal turgor. Normal color with no rashes, no lesions, and no evidence of cellulitis. MS/ Extremity: Pulses equal, no cyanosis. Neurovascular intact. Full, normal range of motion. Neuro: Awake and alert, GCS 15, oriented to person, place, time, and situation. Cranial nerves II-XII grossly intact. Motor strength 5/5 in all extremities. Sensory grossly intact. Cerebellar exam normal. Normal gait. Psych: Awake, alert, with orientation to person, place and time. Behavior, mood, and affect are within normal limits. 06:49 Constitutional: The patient appears alert, awake, in obvious distress, mildly distressed. 06:49 Cardiovascular: Rate: tachycardic, Rhythm: regular, Pulses: no pulse deficits are appreciated, Heart sounds: normal, normal S1and S2, Edema: is not appreciated, JVD: is not appreciated. 06:49 Respiratory: mild respiratory distress is noted, Respirations: prolonged exhalation, that is mild, Breath sounds: rhonchi, that are mild, are scattered, Respiratory rate: 28 Vital Signs: 06:32 BP 162 / 68; Pulse 104; Resp 28; Temp 97.2(TE); Pulse Ox 89% on 2 lpm NC; Weight 61.23 lp1 kg (R); Height 4 ft. 11 in. (149.86 cm); Pain 0/10; 07:16 BP 152 / 72; Pulse 94; Resp 27 S; Pulse Ox 100% on BiPAP; Pain 0/10; jg9 09:57 BP 138 / 60; Pulse 101; Resp 22; Pulse Ox 100% ; ww 06:32 Body Mass Index 27.27 (61.23 kg, 149.86 cm) lp1 MDM: 07:50 Differential diagnosis: Anemia Anxiety Reaction asthma, Bronchitis CHF exacerbation, mh7 Chronic Obstructive Pulmonary Disease Myocardial Infarction pneumonia, Pneumothorax Psychogenic pulmonary edema, reactive airway disease. Antibiotic administration: Rocephin and Zithromax given. Data reviewed: vital signs, nurses notes, EMS record, old medical records, lab test result(s), cardiac enzymes, CBC, electrolytes, EKG, radiologic studies, plain films. Data interpreted: Pulse oximetry: on BiPAP is 100 %. Interpretation: acceptable. Counseling: I had a detailed discussion with the patient and/or guardian regarding: the historical points, exam findings, and any diagnostic results supporting the discharge/admit diagnosis, the presence of at least one elevated blood pressure reading (>120/80) during this emergency department visit, lab results, radiology results, the need for further work-up and treatment in the hospital. Response to treatment: the patient's symptoms have mildly improved after treatment. 07:53 Patient medically screened. 12/03 06:46 Order name: Basic Metabolic Panel; Complete Time: 07:37 12/03 06:46 Order name: CBC with Diff 12/03 06:46 Order name: LFT's; Complete Time: 07:37 12/03 06:46 Order name: Magnesium; Complete Time: 07:37 12/03 06:46 Order name: NT PRO-BNP; Complete Time: 07:37 12/03 06:46 Order name: PT-INR; Complete Time: 07:37 12/03 06:46 Order name: Troponin HS; Complete Time: 07:37 12/03 06:46 Order name: XRAY Chest (1 view); Complete Time: 07:37 mh12/03 06:46 Order name: Arterial Blood Gas; Complete Time: 07:37 [facility] 12/03 06:46 Order name: Blood Culture Adult (2) [facility] 12/03 06:47 Order name: COVID-19/FLU A+B (Document "Date of Onset" if Symptomatic) [facility] 12/03 06:58 Order name: Lactate; Complete Time: 07:37 as6 12/03 08:53 Order name: CPAP rn 12/03 09:16 Order name: CBC Smear Scan EDMS 12/03 06:46 Order name: EKG; Complete Time: 06:47 [facility] 12/03 06:46 Order name: Cardiac monitoring; Complete Time: 06:51 [facility] 12/03 06:46 Order name: EKG - Nurse/Tech; Complete Time: 06:51 [facility] 12/03 06:46 Order name: IV Saline Lock; Complete Time: 06:51 [facility] 12/03 06:46 Order name: Labs collected and sent; Complete Time: 07:04 [facility] 12/03 06:46 Order name: O2 Per Protocol; Complete Time: 06:51 [facility] 12/03 06:46 Order name: O2 Sat Monitoring; Complete Time: 06:51 [facility] Administered Medications: 07:25 Drug: AtroVENT (ipratropium) Aerosol 0.5 mg Route: Inhalation; jg9 08:57 Follow up: Response: No adverse reaction 9 07:26 Drug: Albuterol 1.25 mg Route: Inhalation; jg9 08:57 Follow up: Response: No adverse reaction j9 09:02 Drug: Rocephin (cefTRIAXone) 1 grams Route: IV; Rate: per protocol; Site: right [facility]; 09:43 Drug: AZITHromycin 500 mg Route: IVPB; Infused Over: 1 hrs; Site: right forearm; Disposition Summary: 12/03/21 07:53 Hospitalization Ordered Hospitalization Status: Inpatient Admission [facility] Provider: Ez Shore Navya Location: Telemetry/MedSurg (Inpatient) [facility] Condition: Stable [facility] Problem: new [facility] Symptoms: have improved [facility] Bed/Room Type: Standard [facility] Room Assignment: 222(12/03/21 09:26) bd Diagnosis - Pneumonia, unspecified organism - Hypoxia [facility] - End stage renal disease - on hemodialysis [facility] Forms: - Medication Reconciliation Form [facility] - SBAR form mh7 Signatures: Dispatcher [employer] Annie Griffiths Laura, RN RN lp1 Lopez Rees MD MD mh7 Anna Muñoz RN RN jg9 Jessica Navarro RN RN ww Corrections: (The following items were deleted from the chart) 09: 07:53 [facility]
--- NOTE | 2021-12-03 07:54 | ER ---
Nurse's Notes [facility] Name: Kevin Chou Age: 76 yrs Sex: Female : 1945 Arrival Date: 12/03/2021 Time: 06:06 Bed 5 Private MD: Diagnosis: Pneumonia, unspecified organism-Hypoxia;End stage renal disease-on hemodialysis Presentation: 12/03 06:32 Chief complaint: Patient states: Shortness of breath worsening since last night, lp1 patient was on her way to dialysis this morning; Wears home O2 at 2L. Coronavirus screen: shortness of breath. Ebola Screen: No symptoms or risks identified at this time. Initial Sepsis Screen: Does the patient meet any 2 criteria? RR > 20 per min. HR > 90 bpm. Does the patient have a suspected source of infection? Yes: Productive cough/pneumonia. Risk Assessment: Do you want to hurt yourself or someone else? Patient reports no desire to harm self or others. Onset of symptoms was December 03, 2021. 06:32 Acuity: GRETA 2 lp1 06:32 Method Of Arrival: Wheelchair lp1 Triage Assessment: 06:40 General: Appears distressed, Behavior is anxious. Respiratory: Reports shortness of lp1 breath cough that is Onset: The symptoms/episode began/occurred gradually, the patient has severe shortness of breath. Historical: - Allergies: 06:34 Percodan; lp1 06:34 Aspirin; lp1 - Home Meds: 06:34 amlodipine 10 mg tab 1 tab once daily [Active]; lp1 - PMHx: 06:34 diabetes mellitus; Hypertension; kidney disease; Dialysis MWF; lp1 - PSHx: 06:34 Left arm fistula; lp1 - Immunization history:: Adult Immunizations up to date. - Social history:: Smoking status: Patient denies any tobacco usage or history of. Screenin:28 Abuse screen: Denies threats or abuse. Denies injuries from another. Nutritional jg9 screening: No deficits noted. Tuberculosis screening: No symptoms or risk factors identified. Fall Risk None identified. Assessment: 06:48 General: pt placed on BiPAP. Respiratory: Respiratory effort is labored. as6 07:26 Reassessment: Patient appears in no apparent distress at this time. Pain: Denies pain. jg9 Cardiovascular: Rhythm is sinus rhythm. Respiratory: Airway is patent Breath sounds are diminished bilaterally. 08:00 General: Appears uncomfortable, Behavior is cooperative. Neuro: Level of Consciousness ww is awake, alert, obeys commands, Oriented to person, place, time, situation, Weakness. Cardiovascular: Patient's skin is warm and dry. Respiratory: Airway is patent Respiratory effort is labored, Patient placed CPAP:. GI: Abdomen is non-distended. : Reports HD patient. 09:15 Reassessment: No changes from previously documented assessment. Patient and/or family ww updated on plan of care and expected duration. Pain level reassessed. Patient is alert, oriented x 3, equal unlabored respirations, skin warm/dry/pink. Vital Signs: 06:32 BP 162 / 68; Pulse 104; Resp 28; Temp 97.2(TE); Pulse Ox 89% on 2 lpm NC; Weight 61.23 lp1 kg (R); Height 4 ft. 11 in. (149.86 cm); Pain 0/10; 07:16 BP 152 / 72; Pulse 94; Resp 27 S; Pulse Ox 100% on BiPAP; Pain 0/10; jg9 09:57 BP 138 / 60; Pulse 101; Resp 22; Pulse Ox 100% ; ww 06:32 Body Mass Index 27.27 (61.23 kg, 149.86 cm) lp1 ED Course: 06:06 Patient arrived in ED. kz 06:16 Lupillo Locke, RN is Primary Nurse. as6 06:34 Triage completed. lp1 06:34 Arm band placed on. lp1 06:35 Patient has correct armband on for positive identification. Placed in gown. Bed in low lp1 position. Call light in reach. veterinary toxicologist on. Pulse ox on. NIBP on. 06:36 Lopez Rees MD is Attending Physician. mh7 06:52 Inserted saline lock: 20 gauge in right forearm, using aseptic technique. Blood as6 collected. 07:03 XRAY Chest (1 view) In Process Unspecified. EDMS 07:08 COVID-19/FLU A+B (Document "Date of Onset" if Symptomatic) Sent. kd3 07:52 Ez Shore is Hospitalizing Provider. mh7 08:19 Primary Nurse role handed off by Lupillo Locke, RN bd 09:01 Wood, Jessica, RN is Primary Nurse. 10:03 No provider procedures requiring assistance completed. Patient admitted, IV remains in ww place. Administered Medications: 07:25 Drug: AtroVENT (ipratropium) Aerosol 0.5 mg Route: Inhalation; jg9 08:57 Follow up: Response: No adverse reaction jg9 07:26 Drug: Albuterol 1.25 mg Route: Inhalation; jg9 08:57 Follow up: Response: No adverse reaction jg9 09:02 Drug: Rocephin (cefTRIAXone) 1 grams Route: IV; Rate: per protocol; Site: right forearm;ww 09:43 Drug: AZITHromycin 500 mg Route: IVPB; Infused Over: 1 hrs; Site: right forearm; Outcome: 07:53 Decision to Hospitalize by Provider. [facility] 10:03 Admitted to Med/surg via stretcher, with oxygen, with chart, Report called to Leonardo 10:03 Condition: stable 10:03 Instructed on the need for admit. 10:38 Patient left the ED. jg9 Signatures: Dispatcher [employer] EDMS Annie Cabrera Laura, RN RN lp1 Lopez Rees MD MD mh7 Lupillo Locke RN RN as6 Drea Cohen RN RN kd3 Anna Muñoz RN RN jg9 Jessica Navarro, RN RN Camille Bermeo
[2021-12-03 08:09] LABS: SARS-COV-2 RT PCR NEGATIVE (NEGATIVE)
--- NOTE | 2021-12-03 08:53 | P.HP ---
Certification for Inpatient Patient admitted to: Inpatient With expected LOS: >2 Midnights Practitioner: I am a practitioner with admitting privileges, knowledge of patient current condition, hospital course, and medical plan of care. Services: Services provided to patient in accordance with Admission requirements found in Title 42 Section 412.3 of the Code of Federal Regulations Patient History Date of Service: 12/03/21 Reason for admission: Shortness of breath History of Present Illness: 76-year-old -Nepalese woman with a history of end-stage renal disease on hemodialysis, prolonged hospitalization for Covid pneumonia last year, history of hypertension and diabetes presented to the emergency department with a complaint of shortness of breath. Symptoms occurred last night. Patient reports compliance with dialysis. Work-up in the emergency department with chest x-ray demonstrated significant pneumonia in the right upper. Patient was hypoxic on room air and was requiring BiPAP initially. She was subsequently transitioned to oxygen by nasal cannula. No leukocytosis or fever. Patient does not meet criteria for sepsis. She is admitted for further management. Allergies aspirin [From Percodan] Adverse Reaction (Verified 04/22/16 09:44) Rash oxycodone [From Percodan] Adverse Reaction (Verified 04/22/16 09:44) Rash Home Medications: Brimonidine Tartrate/Timolol [Combigan 0.2%-0.5% Eye Drops] 1 drop EACH EYE BID 12/13/19 Amlodipine [Norvasc*] 5 mg PO BID #30 tab 06/13/21 Benzonatate [Tessalon Perle*] 100 mg PO TID PRN #30 cap 06/13/21 Calcitrol [Rocaltrol*] 0.5 mcg PO DAILY #30 cap 06/13/21 Calcium Acetate [Phoslo*] 1,334 mg PO TIDWM #180 tab 06/13/21 Cholecalciferol (Vitamin D3) [Vitamin D 5,000 IU Cap*] 5,000 unit PO DAILY #30 cap 06/13/21 Epoetin [Retacrit] 10,000 unit SQ M,W,F vial 06/13/21 Famotidine [Pepcid*] 20 mg PO DAILY #30 tab 06/13/21 Heparin [Heparin 1,000 units/mL *] 6,000 unit IV EVERY HD PRN vial 06/13/21 Insulin Glargine Human [Lantus*] 5 units SQ DAILY #10 ml 06/13/21 Mannitol 25% [Mannitol*] 12.5 gm IV EVERY HD PRN vial 06/13/21 Medihoney [Medihoney Woundcare Gel*] 1 appl TOP DAILY #1 tube 06/13/21 Nepro Shake [Nepro*] 237 ml PO BID #60 can 06/13/21 dexAMETHasone [Dexamethasone] 2 mg PO DAILY #7 tablet 06/13/21 guaiFENesin [Robitussin 100MG/5ML*] 5 ml PO QID PRN #30 ucup 06/13/21 - Past Medical/Surgical History Diabetic: Yes -: hypertension -: diabetes -: gout -: dialysis -: hysterectomy -: lumpectomy -: cataract surgery Psychosocial/ Personal History: Patient lives at home and is . - Social History Alcohol use: No CD- Drugs: No Caffeine use: No Review of Systems Other: Patient reporting abdominal pain. She denies any diarrhea or nausea or vomiting. Except as documented, all other systems reviewed and negative. Physical Examination - Physical Exam General: Alert, In no apparent distress, Oriented x3 HEENT: Normocephalic, Mucous membr. moist/pink, Sclerae nonicteric Neck: Supple, JVD not distended Respiratory: Normal air movement, Crackles/rales (Bilateral) Cardiovascular: No edema, Regular rate/rhythm, Normal S1 S2, No murmurs Capillary refill: <2 Seconds Gastrointestinal: Normal bowel sounds, Soft and benign, Non-distended, Tenderness (Epigastrium) Musculoskeletal: No swelling, No erythema Integumentary: No rashes, No erythema, No cyanosis Neurological: Normal speech, Normal strength at 5/5 x4 extr, Cranial nerves 3-12 intact Lymphatics: No axilla or inguinal lymphadenopathy - Studies Laboratory Data (last 24 hrs) 12/03/21 06:53: PT 10.8, INR 0.98 12/03/21 06:53: WBC 9.8, Hgb 11.2 L, Hct 34.0 L, Plt Count 220 12/03/21 06:53: Sodium 135 L, Potassium 5.4 H, BUN 113 H, Creatinine 13.10 H*, Glucose 138 H, Magnesium 1.8, Total Bilirubin 0.5, AST 20, ALT 20, Alkaline Phosphatase 91 Assessment and Plan - Problems (Diagnosis) (1) Pneumonia Current Visit: Yes Status: Acute (2) Diabetes mellitus type 2 in nonobese Current Visit: Yes Status: Acute (3) End-stage renal disease on hemodialysis Current Visit: No Status: Acute (4) Anemia Onset Date: 01/17/17 Current Visit: No Status: Chronic Qualifiers: Anemia type: due to chronic kidney disease Chronic kidney disease stage: on chronic dialysis Qualified Code(s): N18.6 - End stage renal disease; D63.1 - Anemia in chronic kidney disease; D63.1 - Anemia in chronic kidney disease; Z99.2 - Dependence on renal dialysis; Z99.2 - Dependence on renal dialysis; Z99.2 - Dependence on renal dialysis; Z99.2 - Dependence on renal dialysis (5) HTN (hypertension) Onset Date: 01/17/17 Current Visit: No Status: Chronic Qualifiers: Hypertension type: essential hypertension - Plan Admit the patient to the medical floor. We will start coverage for hospital-acquired pneumonia with IV Levaquin and vancomycin. Pneumonia distribution is concerning for aspiration. Speech therapy consult for swallow evaluation. Bronchodilators Supplemental oxygen as needed. Follow blood cultures. Nephrology consult for hemodialysis. Patient undergoes hemodialysis on Wednesdays and Fridays. Insulin sliding scale for glucose management. Reconcile and continue other home medications. - Advance Directives Does patient have a Living Will: No Does patient have a Durable POA for Healthcare: No
[2021-12-03] MEDS ORDERED: CEFTRIAXONE 1000 MG/VIAL ONE (08:56)
[2021-12-03] MEDS ORDERED: NA CHLORIDE 0.9% 250 ML ONE (08:56)
[2021-12-03] MEDS ORDERED: AZITHROMYCIN 500 MG INJ IVPB ONE (08:56)
[2021-12-03] MEDS ORDERED: NA CHLORIDE 0.9% 100 ML IV ONE (08:56)
[2021-12-03 09:15] LABS: Platelet Estimate ADEQ; White Blood Cell Scan OK (OK)
[2021-12-03 09:16] LABS: Anisocytosis 1+; Blood Morphology Comment NOTED (NOT SEEN)
--- NOTE | 2021-12-03 09:36 | EKG ---
Test Date: 2021-12-03 Test Time: 06:49:59 Laundry Assistant: DAVID MEASUREMENT RESULTS: Intervals: Rate: 97 IA: 198 QRSD: 70 QT: 356 QTc: 452 [place]: P: 64 IA: 198 QRS: -4 T: 52 INTERPRETIVE STATEMENTS: Normal sinus rhythm Normal ECG Compared to ECG 05/20/2021 14:42:59 Sinus tachycardia no longer present Myocardial infarct finding no longer present Electronically Signed On 12-03-21 09:35:24 CDT by Cuong De Guzman
[2021-12-03] MEDS ORDERED: ALBUTEROL 2.5 MG/3 ML NEB SOL NEB PRN (10:51)
[2021-12-03] MEDS ORDERED: ONDANSETRON 4 MG/2 ML VIAL IV PRN (10:51)
[2021-12-03] MEDS: HEPARIN 5000 UNIT/ML 1 ML VIAL SQ SCH ×2 (10:51→18:16)
[2021-12-03] MEDS ORDERED: Levofloxacin 750mg IV 750 MG/150 ML BAG IV ONE (11:15)
[2021-12-03] MEDS: ACETAMINOPHEN 500 MG TAB PO PRN (11:18)
[2021-12-03] MEDS: INSULIN -REGULAR HUMAN 50 UNIT/0.5 ML ML SQ SCH ×3 (11:30→21:00)
[2021-12-03] MEDS ORDERED: NA CHLORIDE 0.9% 1,000 ML IV PRN (11:36)
[2021-12-03] MEDS ORDERED: MANNITOL 25% 12.5 GM/50 ML VIAL IV PRN (11:36)
[2021-12-03 11:37] VITALS: BMI 27.2
--- NOTE | 2021-12-03 11:38 | P.CNS ---
Date of Consult: 12/03/21 Reason for Consult: ESRD Requesting Physician: siobhan serra Chief Complaint: Dyspnea with cough History of Present Illness: 76-year-old -[place] woman with a history of end-stage renal disease on hemodialysis, prolonged hospitalization for Covid pneumonia last year, history of hypertension and diabetes presented to the emergency department with a complaint of shortness of breath. Symptoms occurred last night. Patient reports compliance with dialysis. Work-up in the emergency department with chest x-ray demonstrated significant pneumonia in the right upper. Patient was hypoxic on room air and was requiring BiPAP initially. She was subsequently transitioned to oxygen by nasal cannula. No leukocytosis or fever. Patient does not meet criteria for sepsis. She is admitted for further management. 06:49 This 76 yrs old Black Female presents to ER via Wheelchair with complaints of Breathing mh7 Difficulty. 06:49 The patient has shortness of breath at rest. Onset: The symptoms/episode began/occurred mh7 last night. Duration: The symptoms are continuous, and are steadily getting worse. The patient's shortness of breath is aggravated by coughing, is alleviated by nothing. Associated signs and symptoms: Pertinent negatives: chest pain, productive cough, diaphoresis, dizziness, fever, hemoptysis, loss of consciousness, nausea, numbness in extremities, visual changes, vomiting. Severity of symptoms: At their worst the symptoms were moderate last night, in the emergency department the symptoms are unchanged. Allergies aspirin [From Percodan] Adverse Reaction (Verified 04/22/16 09:44) Rash oxycodone [From Percodan] Adverse Reaction (Verified 04/22/16 09:44) Rash Home medications list reviewed: Yes Home Medications: Brimonidine Tartrate/Timolol [Combigan 0.2%-0.5% Eye Drops] 1 drop EACH EYE BID 12/13/19 Amlodipine [Norvasc*] 5 mg PO BID #30 tab 06/13/21 Benzonatate [Tessalon Perle*] 100 mg PO TID PRN #30 cap 06/13/21 Calcitrol [Rocaltrol*] 0.5 mcg PO DAILY #30 cap 06/13/21 Calcium Acetate [Phoslo*] 1,334 mg PO TIDWM #180 tab 06/13/21 Cholecalciferol (Vitamin D3) [Vitamin D 5,000 IU Cap*] 5,000 unit PO DAILY #30 cap 06/13/21 Epoetin [Retacrit] 10,000 unit SQ M,W,F vial 06/13/21 Famotidine [Pepcid*] 20 mg PO DAILY #30 tab 06/13/21 Heparin [Heparin 1,000 units/mL *] 6,000 unit IV EVERY HD PRN vial 06/13/21 Insulin Glargine Human [Lantus*] 5 units SQ DAILY #10 ml 06/13/21 Mannitol 25% [Mannitol*] 12.5 gm IV EVERY HD PRN vial 06/13/21 Medihoney [Medihoney Woundcare Gel*] 1 appl TOP DAILY #1 tube 06/13/21 Nepro Shake [Nepro*] 237 ml PO BID #60 can 06/13/21 dexAMETHasone [Dexamethasone] 2 mg PO DAILY #7 tablet 06/13/21 guaiFENesin [Robitussin 100MG/5ML*] 5 ml PO QID PRN #30 ucup 06/13/21 - Past Medical/Surgical History Diabetic: Yes -: hypertension -: diabetes -: gout -: dialysis -: hysterectomy -: lumpectomy -: cataract surgery Psychosocial/ Personal History: Patient lives at home and is . - Social History Alcohol use: No CD- Drugs: No Caffeine use: No Review of Systems 10-point ROS is otherwise unremarkable General: Weakness, Malaise Respiratory: Cough, SOB with Excertion Physical Examination Temp Pulse Resp BP Pulse Ox 97.2 F 101 H 22 H 138/60 12/03/21 06:32 12/03/21 09:57 12/03/21 09:57 12/03/21 09:57 General: Alert, Oriented x3, Cooperative HEENT: Atraumatic Neck: Supple Respiratory: Crackles/rales (left) Cardiovascular: No edema, Regular rate/rhythm Gastrointestinal: Non-distended, No guarding Musculoskeletal: No clubbing, No contractures Integumentary: No rashes, No cyanosis Neurological: Normal speech Laboratory Data (last 24 hrs) 12/03/21 06:53: PT 10.8, INR 0.98 12/03/21 06:53: WBC 9.8, Hgb 11.2 L, Hct 34.0 L, Plt Count 220 12/03/21 06:53: Sodium 135 L, Potassium 5.4 H, BUN 113 H, Creatinine 13.10 H*, Glucose 138 H, Magnesium 1.8, Total Bilirubin 0.5, AST 20, ALT 20, Alkaline Phosphatase 91 Imagings Data: EXAM DESCRIPTION: RAD - Chest Single View - 12/03/2021 7:01 am CLINICAL HISTORY: SOB COMPARISON: Portable 05/25/2021 TECHNIQUE: AP portable chest image was obtained 12/03/2021 7:01 am . FINDINGS: Dense consolidation is present in the inferolateral right upper lobe abutting the minor fissure. This is most likely acute pneumonia. No cavitation component. Lung volumes are low accentuating baseline interstitial pattern. No other area of dense consolidation is seen though there is airspace opacification in the lower left lung field. Additional site of pneumonia is possible in this can be monitored on follow-up imaging. Heart and vasculature are normal. No measurable pleural effusion and no pneumothorax. No acute bony abnormality seen. No acute aortic findings s uspected. IMPRESSION: Consolidated pneumonia in the right upper lobe. Airspace opacification in the lower left lung field without dense consolidation. This could be additional site of pneumonia or accentuation of the patient's baseline lung parenchymal pattern due to portable technique and low lung volume. This can be monitored along with the right upper lobe finding. Heart size is stable. A small component of failure or volume overload superimposed on the above findings cannot be excluded. Conclusions/Impression: ESRD -HD TIW Hyperkalemia -Acute HD -Renal diet HTN with CKD/ CHF -Monitor BP Diastolic CHF, A/C -HD with UF DM II with CKD -No sugar diet -RISS Moderate malnutrition -Start Nepro Anemia in CKD -Retacrit X1 CKD MBD -Start Vitamin D Gout -Monitor Uric Acid PNA -Continue Levaquin Thank you kindly for the consultation.
[2021-12-03] MEDS: IPRATROPIUM BROM 0.5MG/2.5ML NEB SCH ×4 (12:00→23:30)
[2021-12-03] MEDS ORDERED: ALBUMIN HUMAN 25% 50 ML IV SCH (12:00)
--- NOTE | 2021-12-03 12:42 | P.CNS ---
Date of Consult: 12/04/21 Chief Complaint: Shortness of breath History of Present Illness: Patient is 76 years of age with end-stage renal disease on hemodialysis had COVID pneumonia last year presented to the emergency room with worsening dyspnea hypoxic bilateral pulmonary infiltrate/shortness of breath came on rather suddenly patient is compliant with her dialysis denies any fever chills cough sputum hemoptysis or chest pain feeling much better today prior history of cardiopulmonary problems Allergies aspirin [From Percodan] Adverse Reaction (Verified 04/22/16 09:44) Rash oxycodone [From Percodan] Adverse Reaction (Verified 04/22/16 09:44) Rash Home Medications: Brimonidine Tartrate/Timolol [Combigan 0.2%-0.5% Eye Drops] 1 drop EACH EYE BID 12/13/19 Amlodipine [Norvasc*] 5 mg PO BID #30 tab 06/13/21 Benzonatate [Tessalon Perle*] 100 mg PO TID PRN #30 cap 06/13/21 Calcitrol [Rocaltrol*] 0.5 mcg PO DAILY #30 cap 06/13/21 Calcium Acetate [Phoslo*] 1,334 mg PO TIDWM #180 tab 06/13/21 Cholecalciferol (Vitamin D3) [Vitamin D 5,000 IU Cap*] 5,000 unit PO DAILY #30 cap 06/13/21 Epoetin [Retacrit] 10,000 unit SQ M,W,F vial 06/13/21 Famotidine [Pepcid*] 20 mg PO DAILY #30 tab 06/13/21 Heparin [Heparin 1,000 units/mL *] 6,000 unit IV EVERY HD PRN vial 06/13/21 Insulin Glargine Human [Lantus*] 5 units SQ DAILY #10 ml 06/13/21 Mannitol 25% [Mannitol*] 12.5 gm IV EVERY HD PRN vial 06/13/21 Medihoney [Medihoney Woundcare Gel*] 1 appl TOP DAILY #1 tube 06/13/21 Nepro Shake [Nepro*] 237 ml PO BID #60 can 06/13/21 dexAMETHasone [Dexamethasone] 2 mg PO DAILY #7 tablet 06/13/21 guaiFENesin [Robitussin 100MG/5ML*] 5 ml PO QID PRN #30 ucup 06/13/21 - Past Medical/Surgical History Diabetic: Yes -: hypertension -: diabetes -: gout -: dialysis -: hysterectomy -: lumpectomy -: cataract surgery Psychosocial/ Personal History: Patient lives at home and is . - Social History Alcohol use: No CD- Drugs: No Caffeine use: No Place of Residence: Home Review of Systems 10-point ROS is otherwise unremarkable General: Weakness Respiratory: Shortness of Breath Physical Examination Temp Pulse Resp BP Pulse Ox 96.8 F 97 H 24 H 136/62 90 L 12/03/21 12:00 12/03/21 12:00 12/03/21 12:00 12/03/21 12:00 12/03/21 12:00 General: Alert, In no apparent distress, Oriented x3 Neck: Supple Respiratory: Clear to auscultation bilaterally, Diminished Cardiovascular: No edema, Regular rate/rhythm, Normal S1 S2 Laboratory Data (last 24 hrs) 12/03/21 06:53: PT 10.8, INR 0.98 12/03/21 06:53: WBC 9.8, Hgb 11.2 L, Hct 34.0 L, Plt Count 220 12/03/21 06:53: Sodium 135 L, Potassium 5.4 H, BUN 113 H, Creatinine 13.10 H*, Glucose 138 H, Magnesium 1.8, Total Bilirubin 0.5, AST 20, ALT 20, Alkaline Phosphatase 91 - Problems (1) Pulmonary edema Current Visit: Yes Status: Acute Plan: Patient is a 76 years of age chronic renal failure admitted with acute shortness of breath bilateral pulmonary infiltrates [place] any symptoms of sepsis no prior cardiopulmonary problem possibly pulmonary edema she is feeling much better no evidence of sepsis repeat chest x-ray been on oxygen since June last year check room air pulse ox Qualifiers: Chronicity: acute Qualified Code(s): J81.0 - Acute pulmonary edema
[2021-12-03] MEDS ORDERED: VANCOMYCIN 1 GM in NA CHLORIDE 0.9% 250 ML IVPB SCH (13:00)
[2021-12-04] MEDS: HEPARIN 5000 UNIT/ML 1 ML VIAL SQ SCH ×3 (01:20→16:40)
[2021-12-04] MEDS: IPRATROPIUM BROM 0.5MG/2.5ML NEB SCH ×2 (03:40→08:32)
[2021-12-04 06:10] LABS: Absolute Lymphocytes (CBC) 2.5 K/uL (0.7-4.9); Hematocrit 31.8 % (36.0-45.0); Lymphocytes % 29.3 % (15.3-44.8); MPV 8.6 fL (7.6-11.3)
[2021-12-04 06:31] LABS: Potassium 5.1 mmol/L (3.5-5.1)
--- NOTE | 2021-12-04 07:01 | P.PN ---
Date of Service: 12/04/21 Subjective: feeling much better feels she can get words out without having to pause for breath O2 weaning down no new/worsening symptoms ROS: 10 point ROS as noted above, otherwise negative Physical exam GEN: Alert, oriented, NAD HEENT: Normal conjunctiva, sclera anicteric CV: Regular rate and rhythm, no edema Pulm: Nonlabored respirations on 2.5L NC, b/l crackles ABD: Soft, nontender, nondistended Neuro: Normal speech, normal affect Problem List Acute on chronic hypoxemic respiratory failure secondary to pulmonary edema, possible pneumonia Diabetes mellitus type 2 Chronic diastolic congestive heart failure HTN chronic anemia ESRD on HD on coverage for hospital acquired pneumonia given recent exposures, levaquin and vanc remains afebrile, no leukocytosis, no evidence of sepsis possible aspiration pneumonia vs pulm edema CXR with improvement, likely pulm edema the culpril will discuss further with pulmonology nephrology following, HD typically M-W-F sliding scale insulin patient improving Code: full Dispo: home, likely tomorrow Time 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
[2021-12-04] MEDS: INSULIN -REGULAR HUMAN 50 UNIT/0.5 ML ML SQ SCH ×4 (07:30→21:00)
[2021-12-04] MEDS ORDERED: ALBUTEROL 2.5 MG/3 ML NEB SOL ONE (08:01)
[2021-12-04] MEDS ORDERED: IPRATROPIUM BROM 0.5MG/2.5ML ONE (08:01)
[2021-12-04] MEDS ORDERED: EPOETIN ALFA 10,000 UNIT/ML VIAL SQ SCH (09:00)
[2021-12-04] MEDS: DOCUSATE NA 100 MG CAP PO SCH ×2 (09:00→21:00)
[2021-12-04] MEDS: NEPRO SHAKE 237 ML CAN PO SCH ×3 (09:45→21:00)
[2021-12-04] MEDS: VITAMIN D 5,000 UNIT CAP PO SCH (09:45)
[2021-12-04] MEDS: CALCITROL 0.25 MCG CAP PO SCH (12:29)
--- NOTE | 2021-12-04 13:24 | RAD REPORT ---
EXAM DESCRIPTION: RAD - Chest Single View - 12/04/2021 1:07 pm CLINICAL HISTORY: Possible pulmonary edema COMPARISON: Portable Mirian of TECHNIQUE: AP portable chest image was obtained 12/04/2021 1:07 pm . FINDINGS: Consolidation in the lateral inferior right upper lobe has mostly resolved. There has been significant clearing of the lower left lung field as well. Overall interstitial pattern has decrease d in prominence. Vasculature has diminished as well. Heart size is within range of normal. No measurable pleural effusion and no pneumothorax. No acute bony abnormality seen. No acute aortic f indings suspected. IMPRESSION: Significant clearing of lung parenchymal opacification since prior day imaging. Heart si ze and vasculature have diminished in prominence as well.
[2021-12-04] MEDS ORDERED: EPOETIN ALFA 10,000 UNIT/ML VIAL IV SCH (19:45)
--- NOTE | 2021-12-04 19:53 | P.PN ---
Date of Service: 12/04/21 Vital Signs Temp Pulse Resp BP Pulse Ox 97.7 F 101 H 20 170/79 H 97 12/04/21 16:00 12/04/21 16:00 12/04/21 16:00 12/04/21 16:00 12/04/21 16:00 Medications Acetaminophen (Acetaminophen 500 Mg Tab) 500 mg PO Q4HP PRN PRN Reason: TEMP > 100' F Last Admin: 12/03/21 11:18 Dose: 500 mg Documented by: Albuterol Sulfate (Albuterol 2.5 Mg/3 Ml Neb Irene) 2.5 mg NEB Q3HP PRN PRN Reason: SHORTNESS OF BREATH Last Admin: 12/04/21 08:32 Dose: 2.5 mg Documented by: Calcitriol (Calcitrol 0.25 Mcg Cap) 0.5 mcg PO DAILY [facility] Last Admin: 12/04/21 12:29 Dose: 0.5 mcg Documented by: Cholecalciferol (Vitamin D 5,000 Unit Cap) 5,000 unit PO DAILY [facility] Last Admin: 12/04/21 09:45 Dose: 5,000 unit Documented by: Docusate Sodium (Docusate Na 100 Mg Cap) 100 mg PO BID [facility] Last Admin: 12/04/21 09:00 Dose: Not Given Documented by: Enteral Nutritional Formula (Nepro Shake 237 Ml Can) 240 ml PO TID [facility] Last Admin: 12/04/21 14:17 Dose: 237 ml Documented by: Epoetin Gilles (Epoetin Gilles 10,000 Unit/Ml Vial) 10,000 unit SQ M,W,F [facility] Heparin Sodium (Porcine) (Heparin 5000 Unit/Ml 1 Ml Vial) 5,000 unit SQ Q8HR [facility] Last Admin: 12/04/21 16:40 Dose: 5,000 unit Documented by: Heparin Sodium (Porcine) (Heparin 1,000 Unit/Ml Vial) 3,000 unit IV EVERY HD PRN PRN Reason: DIALYSIS Last Admin: 12/03/21 12:24 Dose: 3,000 unit Documented by: Albumin Human (Albumin 25%) 50 mls @ 100 mls/hr IV EVERY HD [facility] Insulin Human Regular (Insulin -Regular Human 50 Unit/0.5 Ml Ml) 0 unit SQ ACHS SELMA; Protocol Last Admin: 12/04/21 16:30 Dose: Not Given Documented by: Mannitol (Mannitol 25% 12.5 Gm/50 Ml Vial) 12.5 gm IV EVERY HD PRN PRN Reason: Titrate to SBP (MUST DEFINE) Ondansetron HCl (Ondansetron 4 Mg/2 Ml Vial) 4 mg IV Q6HP PRN PRN Reason: NAUSEA / VOMITING Sodium Chloride (Flush Normal Saline 10 Ml) 10 ml IV BID SELMA Last Admin: 12/04/21 09:00 Dose: Not Given Documented by: Microbiology Results 12/03/21 07:23 Blood - Blood Aerobic Blood Culture - Preliminary No growth in 24 hours. 12/03/21 07:23 Blood - Blood Anaerobic Blood Culture - Preliminary No growth in 24 hours. 12/03/21 06:53 Blood - Blood Aerobic Blood Culture - Preliminary No growth in 24 hours. 12/03/21 06:53 Blood - Blood Anaerobic Blood Culture - Preliminary No growth in 24 hours. Assessment/ Plan: Nephrology Dyspnea improving Weakness and fatigue improving No chest pain No acute events overnight Vitals, medications, blood work and imaging reviewed in the chart. General: Alert, Oriented x3, Cooperative HEENT: Atraumatic Neck: Supple Respiratory: Crackles/rales (left) Cardiovascular: No edema, Regular rate/rhythm Gastrointestinal: Non-distended, No guarding Musculoskeletal: No clubbing, No contractures Integumentary: No rashes, No cyanosis Neurological: Normal speech Laboratory Data (last 24 hrs) 12/03/21 06:53: PT 10.8, INR 0.98 12/03/21 06:53: WBC 9.8, Hgb 11.2 L, Hct 34.0 L, Plt Count 220 12/03/21 06:53: Sodium 135 L, Potassium 5.4 H, BUN 113 H, Creatinine 13.10 H*, Glucose 138 H, Magnesium 1.8, Total Bilirubin 0.5, AST 20, ALT 20, Alkaline Phosphatase 91 Imagings Data: EXAM DESCRIPTION: RAD - Chest Single View - 12/03/2021 7:01 am CLINICAL HISTORY: SOB COMPARISON: Portable 05/25/2021 TECHNIQUE: AP portable chest image was obtained 12/03/2021 7:01 am . FINDINGS: Dense consolidation is present in the inferolateral right upper lobe abutting the minor fissure. This is most likely acute pneumonia. No cavitation component. Lung volumes are low accentuating baseline interstitial pattern. No other area of dense consolidation is seen though there is airspace opacification in the lower left lung field. Additional site of pneumonia is possible in this can be monitored on follow-up imaging. Heart and vasculature are normal. No measurable pleural effusion and no pneumothorax. No acute bony abnormality seen. No acute aortic findings suspected. IMPRESSION: Consolidated pneumonia in the right upper lobe. Airspace opacification in the lower left lung field without dense consolidation. This could be additional site of pneumonia or accentuation of the patient's baseline lung parenchymal pattern due to portable technique and low lung volume. This can be monitored along with the right upper lobe finding. Heart size is stable. A small component of failure or volume overload superimposed on the above findings cannot be excluded. Conclusions/Impression: ESRD -HD TIW Hyperkalemia -Acute HD -Renal diet HTN with CKD/ CHF -Monitor BP Diastolic CHF, A/C -HD with UF DM II with CKD -No sugar diet -RISS Moderate malnutrition -Continue Nepro Anemia in CKD -Retacrit MWF CKD MBD -Continue Vitamin D Gout -Monitor Uric Acid Lobar PNA -Continue Levaquin Case reviewed with Dr. Kirk
[2021-12-04] MEDS: EPOETIN ALFA 10,000 UNIT/ML VIAL SQ SCH (20:00)
[2021-12-05] MEDS: HEPARIN 5000 UNIT/ML 1 ML VIAL SQ SCH ×3 (00:58→16:58)
[2021-12-05] MEDS: ACETAMINOPHEN 500 MG TAB PO PRN (05:59)
--- NOTE | 2021-12-05 06:37 | P.PN ---
Date of Service: 12/05/21 Subjective: ROS: 10 point ROS as noted above, otherwise negative Physical exam GEN: Alert, oriented, NAD HEENT: Normal conjunctiva, sclera anicteric CV: Regular rate and rhythm, no edema Pulm: Nonlabored respirations on 2.5L NC, b/l crackles ABD: Soft, nontender, nondistended Neuro: Normal speech, normal affect Problem List Acute on chronic hypoxemic respiratory failure secondary to pulmonary edema, possible pneumonia Diabetes mellitus type 2 Chronic diastolic congestive heart failure HTN chronic anemia ESRD on HD on coverage for hospital acquired pneumonia given recent exposures, levaquin and vanc remains afebrile, no leukocytosis, no evidence of sepsis possible aspiration pneumonia vs pulm edema CXR with improvement, likely pulm edema the culpril will discuss further with pulmonology nephrology following, HD typically M-W-F sliding scale insulin patient improving Code: full Dispo: home, likely tomorrow Time 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
[2021-12-05 06:44] LABS: Magnesium 2.1 mg/dL (1.8-2.4); Phosphorus 5.6 mg/dL (2.5-4.9); Potassium 5.4 mmol/L (3.5-5.1)
[2021-12-05] MEDS: INSULIN -REGULAR HUMAN 50 UNIT/0.5 ML ML SQ SCH ×3 (07:30→15:46)
--- NOTE | 2021-12-05 07:54 | RAD REPORT ---
EXAM DESCRIPTION: [place] Single View12/05/2021 5:40 am CLINICAL HISTORY: Shortness of breath COMPARISON: December 04, 2021 FINDINGS: No significant change in the bilateral pulmonary opacities. Heart is mildly enlarged IMPRESSION: No significant change in mild to moderate bilateral pulmonary opacities which may repres ent pulmonary edema or pneumonia
--- NOTE | 2021-12-05 08:41 | P.PN ---
Subjective Date of Service: 12/05/21 Chief Complaint: Pulmonary edema Subjective: Improving (Patient is doing much better x-ray has not improved) Review of Systems General: Weakness Respiratory: Shortness of Breath Physical Examination - Vital Signs Temperature: 97.2 F Blood Pressure: 140/62 Pulse: 73 Respirations: 17 Pulse Ox (%): 99 - Physical Exam General: Alert, In no apparent distress, Oriented x3 Respiratory: Clear to auscultation bilaterally Cardiovascular: No edema, Regular rate/rhythm Assessment And Plan - Current Problems (Diagnosis) (1) Pulmonary edema Current Visit: Yes Status: Acute Plan: Patient has improved chest x-ray is also improved oxygenation stable check room air pulse ox on not sure if she needs oxygen home today after dialysis Qualifiers: Chronicity: acute Qualified Code(s): J81.0 - Acute pulmonary edema
[2021-12-05] MEDS: CALCITROL 0.25 MCG CAP PO SCH (08:51)
[2021-12-05] MEDS: VITAMIN D 5,000 UNIT CAP PO SCH (08:52)
[2021-12-05] MEDS: NEPRO SHAKE 237 ML CAN PO SCH ×2 (08:56→14:00)
[2021-12-05] MEDS: DOCUSATE NA 100 MG CAP PO SCH (09:00)
[2021-12-05] MEDS ORDERED: Levofloxacin500mg IV 500 MG/100 ML BAG IV SCH (11:00)
[2021-12-05 12:45] VITALS: BP 178/79; TEMP 97
[2021-12-05 14:58] VITALS: O2SAT 99
--- NOTE | 2021-12-05 16:09 | P.DS ---
Admission Date: 12/03/21 Discharge Date: 12/05/21 Disposition: DC HOME/HOME HEALTH CARE Discharge Condition: GOOD Reason for Admission: Pulmonary edema Consultations: Pulmonology Nephrology Procedures: Problem List Acute on chronic hypoxemic respiratory failure secondary to pulmonary edema, possible pneumonia Diabetes mellitus type 2 Chronic diastolic congestive heart failure HTN chronic anemia ESRD on HD Brief History of Present Illness: 76yo F, PMH: ESRD on HD, prolonged hospitalization for Covid pneumonia last year, HTN, DM2. Presented to the ED with shortness of breath. Symptoms occurred last night. Patient reports compliance with dialysis. Work-up in the emergency department with chest x-ray demonstrated b/l opacitices concerning for pneumonia vs pulmonary edema. Patient was hypoxic on room air and was requiring BiPAP initially. She was subsequently transitioned to oxygen by nasal cannula. No leukocytosis or fever. Patient does not meet criteria for sepsis. She is admitted for further management. Hospital Course: Patient was empirically treated for possible right upper lobe pneumonia with antibiotics. During her hospitalization she remained afebrile and without leukocytosis. Pulmonology was consulted and felt less likely to be infection. There was no evidence of sepsis. She had improvement of her symptoms and chest x-ray findings with dialysis, indicating pulmonary edema played a significant part of her symptoms. She continued to improve and was deemed stable for discharge home. She is to complete 7 day course of levaquin. Otherwise, resume home medications as previously prescribed. Continue dialysis as previously scheduled. Follow up with PCP within 1 week. Vital Signs/Physical Exam: Temp Pulse Resp BP Pulse Ox 97.0 F 90 16 178/79 H 100 12/05/21 12:00 12/05/21 12:00 12/05/21 12:00 12/05/21 12:00 12/05/21 12:00 Physical exam GEN: Alert, oriented, NAD HEENT: Normal conjunctiva, sclera anicteric CV: Regular rate and rhythm, no edema Pulm: Nonlabored respirations on 2L NC ABD: Soft, nontender, nondistended Neuro: Normal speech, normal affect Laboratory Data at Discharge: WBC 8.4 K/uL (4.3-10.9) D 12/04/21 05:38 Hgb 10.8 g/dL (12.0-15.0) L 12/04/21 05:38 Hct 31.8 % (36.0-45.0) L 12/04/21 05:38 Plt Count 214 K/uL (152-406) 12/04/21 05:38 PT 10.8 SECONDS (9.5-12.5) 12/03/21 06:53 INR 0.98 12/03/21 06:53 Sodium 134 mmol/L (136-145) L 12/05/21 06:12 Potassium 5.4 mmol/L (3.5-5.1) H 12/05/21 06:12 BUN 89 mg/dL (7-18) H D 12/05/21 06:12 Creatinine 12.30 mg/dL (0.55-1.3) H* D 12/05/21 06:12 Glucose 109 mg/dL (74-106) H 12/05/21 06:12 Phosphorus 5.6 mg/dL (2.5-4.9) H 12/05/21 06:12 Magnesium 2.1 mg/dL (1.8-2.4) 12/05/21 06:12 Total Bilirubin 0.5 mg/dL (0.2-1.0) 12/03/21 06:53 AST 20 U/L (15-37) 12/03/21 06:53 ALT 20 U/L (12-78) 12/03/21 06:53 Alkaline Phosphatase 91 U/L (45-117) 12/03/21 06:53 Triglycerides 70 mg/dL (<150) 12/04/21 05:38 Cholesterol 233 mg/dL (<200) H 12/04/21 05:38 HDL Cholesterol 78 mg/dL (40-60) H 12/04/21 05:38 Cholesterol/HDL Ratio 2.99 12/04/21 05:38 Home Medications: Brimonidine Tartrate/Timolol [Combigan 0.2%-0.5% Eye Drops] 1 drop EACH EYE BID 12/13/19 Amlodipine [Norvasc*] 5 mg PO BID #30 tab 06/13/21 Benzonatate [Tessalon Perle*] 100 mg PO TID PRN #30 cap 06/13/21 Calcitrol [Rocaltrol*] 0.5 mcg PO DAILY #30 cap 06/13/21 Calcium Acetate [Phoslo*] 1,334 mg PO TIDWM #180 tab 06/13/21 Cholecalciferol (Vitamin D3) [Vitamin D 5,000 IU Cap*] 5,000 unit PO DAILY #30 cap 06/13/21 Epoetin [Retacrit] 10,000 unit SQ M,W,F vial 06/13/21 Famotidine [Pepcid*] 20 mg PO DAILY #30 tab 06/13/21 Heparin [Heparin 1,000 units/mL *] 6,000 unit IV EVERY HD PRN vial 06/13/21 Insulin Glargine Human [Lantus*] 5 units SQ DAILY #10 ml 06/13/21 Mannitol 25% [Mannitol*] 12.5 gm IV EVERY HD PRN vial 06/13/21 Medihoney [Medihoney Woundcare Gel*] 1 appl TOP DAILY #1 tube 06/13/21 Nepro Shake [Nepro*] 237 ml PO BID #60 can 06/13/21 dexAMETHasone [Dexamethasone] 2 mg PO DAILY #7 tablet 06/13/21 guaiFENesin [Robitussin 100MG/5ML*] 5 ml PO QID PRN #30 ucup 06/13/21 Levofloxacin [Levaquin] 500 mg PO Q48H 6 Days #3 tablet 12/05/21 New Medications: Levofloxacin [Levaquin] 500 mg PO Q48H 6 Days #3 tablet Diet: Renal Activity: Ad nathalie Followup: NONE,NONE [Primary Care Provider] - Time spent managing pt's care (in minutes): 45
[2021-12-05] MEDS: EPOETIN ALFA 10,000 UNIT/ML VIAL SQ SCH (16:58)
--- NOTE | 2021-12-05 21:23 | P.PN ---
Date of Service: 12/05/21 Vital Signs Temp Pulse Resp BP Pulse Ox 97.0 F 90 16 178/79 H 100 12/05/21 12:00 12/05/21 12:00 12/05/21 12:00 12/05/21 12:00 12/05/21 12:00 Microbiology Results 12/03/21 07:23 Blood - Blood Aerobic Blood Culture - Preliminary No growth in 24 hours. 12/03/21 07:23 Blood - Blood Anaerobic Blood Culture - Preliminary No growth in 24 hours. 12/03/21 06:53 Blood - Blood Aerobic Blood Culture - Preliminary No growth in 24 hours. 12/03/21 06:53 Blood - Blood Anaerobic Blood Culture - Preliminary No growth in 24 hours. Assessment/ Plan: Nephrology Weakness and fatigue improving No dyspnea. ROYAL. No chest pain Back pain this morning improving with tylenol No acute events overnight Vitals, medications, blood work and imaging reviewed in the chart. General: Alert, Oriented x3, Cooperative HEENT: Atraumatic Neck: Supple Respiratory: Crackles/rales (left) Cardiovascular: No edema, Regular rate/rhythm Gastrointestinal: Non-distended, No guarding Musculoskeletal: No clubbing, No contractures Integumentary: No rashes, No cyanosis Neurological: Normal speech Laboratory Data (last 24 hrs) 12/03/21 06:53: PT 10.8, INR 0.98 12/03/21 06:53: WBC 9.8, Hgb 11.2 L, Hct 34.0 L, Plt Count 220 12/03/21 06:53: Sodium 135 L, Potassium 5.4 H, BUN 113 H, Creatinine 13.10 H*, Glucose 138 H, Magnesium 1.8, Total Bilirubin 0.5, AST 20, ALT 20, Alkaline Phosphatase 91 Imagings Data: EXAM DESCRIPTION: RAD - Chest Single View - 12/03/2021 7:01 am CLINICAL HISTORY: SOB COMPARISON: Portable 05/25/2021 TECHNIQUE: AP portable chest image was obtained 12/03/2021 7:01 am . FINDINGS: Dense consolidation is present in the inferolateral right upper lobe abutting the minor fissure. This is most likely acute pneumonia. No cavitation component. Lung volumes are low accentuating baseline interstitial pattern. No other area of dense consolidation is seen though there is airspace opacification in the lower left lung field. Additional site of pneumonia is possible in this can be monitored on follow-up imaging. Heart and vasculature are normal. No measurable pleural effusion and no pneumothorax. No acute bony abnormality seen. No acute aortic findings suspected. IMPRESSION: Consolidated pneumonia in the right upper lobe. Airspace opacification in the lower left lung field without dense consolidation. This could be additional site of pneumonia or accentuation of the patient's baseline lung parenchymal pattern due to portable technique and low lung volume. This can be monitored along with the right upper lobe finding. Heart size is stable. A small component of failure or volume overload superimposed on the above findings cannot be excluded. Conclusions/Impression: ESRD -HD TIW -Acute HD today Hyperkalemia -Acute HD -Renal diet HTN with CKD/ CHF -Monitor BP Diastolic CHF, A/C -HD with UF DM II with CKD -No sugar diet -RISS Moderate malnutrition -Continue Nepro Anemia in CKD -Retacrit MWF CKD MBD -Continue Vitamin D Gout -Monitor Uric Acid Lobar PNA -Continue Levaquin Case reviewed with Dr. Kirk
== END 2021-12-05 20:05 | disposition home health service (06) | DRG 193 ==
LOC: ER 06:04 → ERHOLD 08:46 → 2ND 09:45
PROVIDERS: ADMIT Internal Medicine; ATTEND Hospitalist
PROC: 5A1D70Z Performance of Urinary Filtration, Intermittent, Less than 6 Hours Per Day (ICD-10-PCS; principal; 2021-12-03)
PROC: 5A1D70Z Performance of Urinary Filtration, Intermittent, Less than 6 Hours Per Day (ICD-10-PCS; 2021-12-05)
PROC: 5A09357 Assistance with Respiratory Ventilation, Less than 24 Consecutive Hours, Continuous Positive Airway Pressure (ICD-10-PCS; 2021-12-05)
DX: J18.1 Lobar pneumonia, unspecified organism (principal); J96.21 Acute and chronic respiratory failure with hypoxia; N18.6 End stage renal disease; I50.33 Acute on chronic diastolic (congestive) heart failure; I13.2 Hypertensive heart and chronic kidney disease with heart failure and with stage 5 chronic kidney disease, or end stage renal disease; E44.0 Moderate protein-calorie malnutrition; E11.22 Type 2 diabetes mellitus with diabetic chronic kidney disease; D63.1 Anemia in chronic kidney disease; E87.5 Hyperkalemia; M10.9 Gout, unspecified; Z20.822 Contact with and (suspected) exposure to COVID-19; Z99.2 Dependence on renal dialysis; Z68.27 Body mass index [BMI] 27.0-27.9, adult; Z86.16 Personal history of COVID-19; Z79.4 Long term (current) use of insulin; Z79.899 Other long term (current) drug therapy; Z88.6 Allergy status to analgesic agent; Z88.5 Allergy status to narcotic agent; Z90.710 Acquired absence of both cervix and uterus
CPT/HCPCS: 0240U; 36415; 71045; 80048; 80061; 80069; 80076; 82805; 82947; 83605; 83735; 83880; 84484; 85025; 85610; 87040; 90935; 93005; 94640; 94660; 94760; 96374; 96375; 97110; 97116; 97161; 97530; 99285; J0456; J1644; J2250; J2405; J7050

== ENCOUNTER 2022-06-26 15:39 | Observation (INO) | payer OTHER ==
--- OUTSIDE RECORDS SUMMARY | 2022-06-26 15:42 | XMS REPORT | Continuity of Care Document ---
:1945 Author Organization [facility] t Address [address] [place] [address] Dr. Ruiz [address] [place] [id number] Care Team Providers Name Role Phone EVARISTO OSUNA Attending Clinician Unavailable Payers Payer Name Policy Type Policy Number Effective Date Expiration Date S oleg MEDICARE PART A [id number] 2010 \T\ B 00:00:00 Problems This patient has no known problems. Allergies, Adverse Reactions, Alerts Allergy Allergy Status Severity Reaction(s) Onset Inactive Treating Comm ents Source Name Type Date Date Clinician OXYCODON DRUG Active High Hallucinates Un tate E 3-23 ity of HCL-OXYC 00:00: [place] ODONE- [address] [place] [address] A [place] Social History Social Habit Start Date Stop Date Quantity Comments Source Sex Assigned At [address] [facility] 00:00:00 00:00:00 [facility] Medications This patient has no known medications. Procedures This patient has no known procedures. Encounters Start End Encounter Admission Attending Care Care Encounter Source Date/Time Date/Time Type Type Clinicians Facility Department ID 2018-03-12 2018-03-[address] [facility] [id number] [facility] 09:30:00 10:31:36 EVARISTO mcadams [facility] Results Test Description Test Time Test Comments Results Result Comments Source SARS-COV2/RT-PCR ([facility]) 2019-12-13 12:54:00 Test Item Value Reference Range Interpretation Comme nts SARS-COV2/RT-PCR (test code = [id number]) Not Detected Not Detected, N egative SARS-COV-2 PERFORMING LAB (test code = [facility] [id number]) Negative results do not preclude SARS-CoV-2 infection [...] of the Act.Fact Sheet for Healthcare Pro viders:https://www.[employer]/Documents/Xpert%20Xpress%20SARS%20CoV-2/Fact%20Sh eets/3023802%56YNMG-OIH-0%20HEALTHCARE%20PROVIDERS%20FACT%20SHEET.pdfFact Sheet for Healthcare Patients:https://www.[employer]/Documents/Xpert%20Xpress%20SARS%20CoV-2/Fact%20Sheets/3023801%20SARS-COV -2%20PATIENT%20FACT%20SHEET.pdfPerforming Laboratory:[facility] [place] [address]
[2022-06-26 16:12] LABS: Absolute Lymphocytes (CBC) 1.9 K/uL (0.7-4.9); Hematocrit 32.3 % (36.0-45.0); Lymphocytes % 23.5 % (15.3-44.8); MCV 95.9 fL (80-100); MPV 8.2 fL (7.6-11.3); RBC Red Blood Cell Count 3.36 M/uL (3.86-4.86)
--- NOTE | 2022-06-26 16:17 | RAD REPORT ---
EXAM DESCRIPTION: RAD - Chest Single View - 06/26/2022 4:12 pm CLINICAL HISTORY: CHEST PAIN COMPARISON: Portable chest 12/05/2021 TECHNIQUE: AP portable chest image was obtained 06/26/2022 4:12 pm . FINDINGS: Lung volumes are low. Patient has a chronic interstitial lung pattern present. Minimal int erstitial edema or infiltrate could be masked by the baseline pattern. No significant failure or volu me overload. Heart and vasculature are normal. No measurable pleural effusion and no pneumothorax. No acute bony abnormality seen. No acute aortic findings suspected. IMPRESSION: No mass, consolidation or significant failure/ volume overload. Chronic interstitial lung pattern could potentially mask minimal edema or infiltrate.
[2022-06-26 16:30] LABS: Potassium 4.4 mmol/L (3.5-5.1); Troponin High Sensitivity 27.4 pg/mL (<58.9)
[2022-06-26] MEDS ORDERED: FENTANYL CITR 100 MCG/2 ML ONE (17:45)
[2022-06-26] MEDS ORDERED: FAMOTIDINE 20 MG/2 ML VIAL IV ONE (17:46)
[2022-06-26] MEDS ORDERED: ENOXAPARIN 40 MG/0.4 ML SQ ONE (17:46)
[2022-06-26] MEDS ORDERED: METOPROLOL TAR 25 MG TAB ONE (17:46)
[2022-06-26] MEDS ORDERED: ONDANSETRON 4 MG/2 ML VIAL ONE (17:46)
--- NOTE | 2022-06-26 17:46 | EDPHYS ---
Physician Documentation [facility] Name: Kevin Chou Age: 77 yrs Sex: Female : 1945 Arrival Date: 06/26/2022 Time: 15:42 Bed 25 Private MD: ED Physician Brett Lennon HPI: 06/26 17:37 This 77 yrs old Black Female presents to ER via Wheelchair with complaints of Chest addie Pain. 17:37 The patient or guardian reports chest pain that is located primarily in the anterior addie chest wall, right. Onset: just prior to arrival. The pain radiates to anterior aspect of right upper chest, right lateral posterior chest and right breast. Associated signs and symptoms: Pertinent positives: shortness of breath. The chest pain is described as aching. Duration: The patient or guardian reports a single episode, that is still ongoing. Modifying factors: The symptoms are alleviated by nothing. the symptoms are aggravated by nothing. Severity of pain: At its worst the pain was mild in the emergency department the pain has improved moderately. The patient has experienced similar episodes in the past, several times. Historical: - Allergies: 15:51 Aspirin; ap3 15:51 Percodan; ap3 - PMHx: 15:51 diabetes mellitus; DIALYSIS MWF; Hypertension; kidney disease; ap3 - PSHx: 15:51 Left arm fistula; ap3 - Immunization history:: Client reports receiving the 2nd dose of the Covid vaccine. - Social history:: Smoking status: Patient denies any tobacco usage or history of. - Family history:: not pertinent. ROS: 17:37 Constitutional: Negative for fever, chills, and weight loss, Eyes: Negative for injury, addie pain, redness, and discharge, ENT: Negative for injury, pain, and discharge, Neck: Negative for injury, pain, and swelling, Abdomen/GI: Negative for abdominal pain, nausea, vomiting, diarrhea, and constipation, Back: Negative for injury and pain, : Negative for injury, bleeding, discharge, and swelling, MS/Extremity: Negative for injury and deformity, Skin: Negative for injury, rash, and discoloration, Neuro: Negative for headache, weakness, numbness, tingling, and seizure, Psych: Negative for depression, anxiety, suicide ideation, homicidal ideation, and hallucinations, Allergy/Immunology: Negative for hives, rash, and allergies, Endocrine: Negative for neck swelling, polydipsia, polyuria, polyphagia, and marked weight changes, Hematologic/Lymphatic: Negative for swollen nodes, abnormal bleeding, and unusual bruising. 17:37 Cardiovascular: Positive for chest pain, of the anterior aspect of right upper chest, right lateral posterior chest, right lateral anterior chest and right breast. 17:37 MS/extremity: Negative for acute changes. Exam: 17:37 Constitutional: This is a well developed, well nourished patient who is awake, alert, addie and in no acute distress. Head/Face: Normocephalic, atraumatic. Eyes: Pupils equal round and reactive to light, extra-ocular motions intact. Lids and lashes normal. Conjunctiva and sclera are non-icteric and not injected. Cornea within normal limits. Periorbital areas with no swelling, redness, or edema. ENT: Nares patent. No nasal discharge, no septal abnormalities noted. Tympanic membranes are normal and external auditory canals are clear. Oropharynx with no redness, swelling, or masses, exudates, or evidence of obstruction, uvula midline. Mucous membranes moist. Neck: Trachea midline, no thyromegaly or masses palpated, and no cervical lymphadenopathy. Supple, full range of motion without nuchal rigidity, or vertebral point tenderness. No Meningismus. Chest/axilla: Normal chest wall appearance and motion. Nontender with no deformity. No lesions are appreciated. Cardiovascular: Regular rate and rhythm with a normal S1 and S2. No gallops, murmurs, or rubs. Normal PMI, no JVD. No pulse deficits. Respiratory: Lungs have equal breath sounds bilaterally, clear to auscultation and percussion. No rales, rhonchi or wheezes noted. No increased work of breathing, no retractions or nasal flaring. Abdomen/GI: Soft, non-tender, with normal bowel sounds. No distension or tympany. No guarding or rebound. No evidence of tenderness throughout. Back: No spinal tenderness. No costovertebral tenderness. Full range of motion. Skin: Warm, dry with normal turgor. Normal color with no rashes, no lesions, and no evidence of cellulitis. MS/ Extremity: Pulses equal, no cyanosis. Neurovascular intact. Full, normal range of motion. Neuro: Awake and alert, GCS 15, oriented to person, place, time, and situation. Cranial nerves II-XII grossly intact. Motor strength 5/5 in all extremities. Sensory grossly intact. Cerebellar exam normal. Normal gait. Psych: Awake, alert, with orientation to person, place and time. Behavior, mood, and affect are within normal limits. 17:37 ECG was reviewed by the Attending Physician. 17:37 Musculoskeletal/extremity: DVT Exam: No signs of deep vein thrombosis. no pain, no swelling, no tenderness, negative Homans' sign noted on exam, no appreciated bluish discoloration, no erythema, no increased warmth. Vital Signs: 15:50 BP 136 / 85; Pulse 96; Resp 20; Pulse Ox 99% on 2 lpm NC; Weight 58.97 kg; Height 4 ft. ap3 11 in. (149.86 cm); 16:28 BP 114 / 61; Pulse 87; Pulse Ox 100% ; ko1 17:13 BP 119 / 57; Pulse 86; Pulse Ox 100% ; ko1 19:45 BP 129 / 60; Pulse 79; Resp 18 S; Pulse Ox 99% on 2 lpm NC; ha1 15:50 Body Mass Index 26.26 (58.97 kg, 149.86 cm) ap3 MDM: 16:18 Patient medically screened. addie 06/26 15:58 Order name: Basic Metabolic Panel; Complete Time: 17:29 [facility] 06/26 15:58 Order name: CBC with Diff; Complete Time: 16:15 [facility] 06/26 15:58 Order name: Troponin HS; Complete Time: 17:29 [facility] 06/26 17:37 Order name: SARS RAPID [facility] 06/26 18:23 Order name: Basic Metabolic Panel [facility]WA 06/26 18:23 Order name: Basic Metabolic Panel [facility] 06/26 15:58 Order name: XRAY Chest (1 view); Complete Time: 17:29 [facility] 06/26 18:23 Order name: Echo with Doppler [facility]WA 06/26 18:23 Order name: CBC with Automated Diff [facility]WA 06/26 18:23 Order name: CBC with Automated Diff EDMS 06/26 18:23 Order name: Lipid Profile [facility]WA 06/26 18:23 Order name: Lipid Profile [facility] 06/27 03:28 Order name: Lipid Profile [facility] 06/27 12:16 Order name: NM [facility]WA 06/26 15:58 Order name: EKG; Complete Time: 15:58 [facility] 06/26 15:58 Order name: Cardiac monitoring; Complete Time: 15:58 [facility] 06/26 15:58 Order name: EKG - Nurse/Tech; Complete Time: 15:58 [facility] 06/26 15:58 Order name: IV Saline Lock; Complete Time: 16:13 [facility] 06/26 15:58 Order name: Labs collected and sent; Complete Time: 16:13 [facility] 06/26 15:58 Order name: O2 Per Protocol; Complete Time: 15:58 [facility] 06/26 15:58 Order name: O2 Sat Monitoring; Complete Time: 15:58 [facility] 06/26 18:23 Order name: CONS Physician Consult [facility] 06/26 18:23 Order name: Dietitian Consult [facility] 06/26 18:23 Order name: Renal EDMS EC:37 Rate is 90 beats/min. Rhythm is regular. QRS [place] is Normal. OK interval is normal. QRS addie interval is normal. QT interval is normal. No Q waves. T waves are Normal. No ST changes noted. Clinical impression: Normal ECG and No evidence of ischemia. Interpreted by me. Reviewed by me. Administered Medications: 17:45 Drug: Zofran (Ondansetron) 4 mg Route: IVP; Site: right forearm; ko1 17:48 Drug: fentaNYL (PF) 25 mcg Route: IVP; Site: right forearm; ko1 18:05 Drug: Pepcid (famotidine) 20 mg Route: IVP; Site: right forearm; ko1 18:06 Drug: Lovenox (enoxaparin) 40 mg Route: Sub-Q; Site: right lower abdomen; ko1 18:06 Drug: Lopressor (metoprolol TARTRATE)) 25 mg Route: PO; ko1 Disposition Summary: 06/26/22 17:46 Hospitalization Ordered Hospitalization Status: Observation addie Provider: Deana Scherer cha Condition: Fair addie Problem: new addie Symptoms: have improved addie Bed/Room Type: Standard addie Location: [facility] ER HOLD(06/26/22 22:24) cg Room Assignment: ERHOLD-(06/26/22 22:24) cg Diagnosis - Chest pain, unspecified addie - Essential (primary) hypertension addie - Dyspnea addie - End stage renal disease - ON HD M,W,FRI addie Forms: - Medication Reconciliation Form addie - SBAR form addie Signatures: Dispatcher [employer] EDBrett Rendon MD MD cha Garcia, Cindy RN RN cg Mignon hSabazz RN RN cj3 Belkys Avilez RN RN vg1 Angelica Donahue RN RN ko1 Corrections: (The following items were deleted from the chart) : 17:46 Telemetry/MedSurg (observation) addie 17:46 addie
--- NOTE | 2022-06-26 17:46 | ER ---
Nurse's Notes [facility] Name: Kevin Chou Age: 77 yrs Sex: Female : 1945 Arrival Date: 06/26/2022 Time: 15:42 Bed 25 Private MD: Diagnosis: Chest pain, unspecified;Essential (primary) hypertension;Dyspnea;End stage renal disease-ON HD ,,FRI Presentation: 06/26 15:50 Chief complaint: Patient states: she started having chest pain this morning, but it got ap3 worse after dialysis. patient also complains of SOB at this time. Coronavirus screen: At this time, the client does not indicate any symptoms associated with coronavirus-19. Ebola Screen: No symptoms or risks identified at this time. Initial Sepsis Screen: Does the patient meet any 2 criteria? No. Patient's initial sepsis screen is negative. Does the patient have a suspected source of infection? No. Patient's initial sepsis screen is negative. Risk Assessment: Do you want to hurt yourself or someone else? Patient reports no desire to harm self or others. Onset of symptoms was June 26, 2022. 15:50 Method Of Arrival: Wheelchair ap3 15:50 Acuity: GRETA 2 ap3 Triage Assessment: 15:51 General: Appears uncomfortable, Behavior is calm, cooperative. Pain: Complains of pain ap3 in chest. Neuro: Level of Consciousness is awake, alert, obeys commands, Oriented to person, place, time, situation. Cardiovascular: Reports chest pain, shortness of breath. Respiratory: Airway is patent Respiratory effort is even, unlabored, Respiratory pattern is regular, symmetrical. Historical: - Allergies: 15:51 Aspirin; ap3 15:51 Percodan; ap3 - PMHx: 15:51 diabetes mellitus; DIALYSIS MWF; Hypertension; kidney disease; ap3 - PSHx: 15:51 Left arm fistula; ap3 - Immunization history:: Client reports receiving the 2nd dose of the Covid vaccine. - Social history:: Smoking status: Patient denies any tobacco usage or history of. - Family history:: not pertinent. Screenin:52 Abuse screen: Denies threats or abuse. Nutritional screening: No deficits noted. ap3 Tuberculosis screening: No symptoms or risk factors identified. 16:28 Fall Risk IV access (20 points). ko1 Assessment: 16:28 General: Appears distressed, uncomfortable, Behavior is calm, cooperative, appropriate ko1 for age. Pain: Complains of pain in chest Pain does not radiate. Pain currently is 8 out of 10 on a pain scale. Quality of pain is described as crushing, Pain began suddenly. Neuro: No deficits noted. Cardiovascular: Reports chest pain. Respiratory: No deficits noted. GI: No deficits noted. : No deficits noted. : Parent/caregiver report the patient having she is on hemodialysis, has a graft in the left arm. EENT: No deficits noted. Derm: No deficits noted. Musculoskeletal: No deficits noted. 19:45 Reassessment:. Reassessment: talking to relatives at the bedside. denies any conserns. ha1 General: Appears comfortable, Behavior is calm, cooperative. Pain: Denies pain. Neuro: Level of Consciousness is awake, alert, obeys commands. Cardiovascular: Patient's skin is warm and dry. Respiratory: Airway is patent Trachea midline Respiratory effort is even, unlabored, Respiratory pattern is regular, symmetrical. Vital Signs: 15:50 BP 136 / 85; Pulse 96; Resp 20; Pulse Ox 99% on 2 lpm NC; Weight 58.97 kg; Height 4 ft. ap3 11 in. (149.86 cm); 16:28 BP 114 / 61; Pulse 87; Pulse Ox 100% ; ko1 17:13 BP 119 / 57; Pulse 86; Pulse Ox 100% ; ko1 19:45 BP 129 / 60; Pulse 79; Resp 18 S; Pulse Ox 99% on 2 lpm NC; ha1 15:50 Body Mass Index 26.26 (58.97 kg, 149.86 cm) ap3 ED Course: 15:42 Patient arrived in ED. am2 15:51 Angelica Donahue, RN is Primary Nurse. ko1 15:51 Triage completed. ap3 15:52 Arm band placed on left wrist. ap3 15:52 Patient has correct armband on for positive identification. Bed in low position. Call ap3 light in reach. Side rails up X2. Adult w/ patient. rewrite editor on. Pulse ox on. NIBP on. 15:52 Oxygen administration via nasal cannula \T\ 2L/min. ap3 15:58 Initial lab(s) drawn, by me, sent to lab. Inserted saline lock: 20 gauge in right vg1 forearm, using aseptic technique. Blood collected. 16:13 Basic Metabolic Panel Sent. ko1 16:13 CBC with Diff Sent. ko1 16:13 Troponin HS Sent. ko1 16:14 XRAY Chest (1 view) In Process Unspecified. EDMT 16:15 Brett Lennon MD is Attending Physician. addie 17:39 SARS RAPID Sent. ko1 17:44 Deana Scherer MD is Hospitalizing Provider. [facility] 19:50 Door closed. Noise minimized. Warm blanket given. ha1 Administered Medications: 17:45 Drug: Zofran (Ondansetron) 4 mg Route: IVP; Site: right forearm; ko1 17:48 Drug: fentaNYL (PF) 25 mcg Route: IVP; Site: right forearm; ko1 18:05 Drug: Pepcid (famotidine) 20 mg Route: IVP; Site: right forearm; ko1 18:06 Drug: Lovenox (enoxaparin) 40 mg Route: Sub-Q; Site: right lower abdomen; ko1 18:06 Drug: Lopressor (metoprolol TARTRATE)) 25 mg Route: PO; ko1 Outcome: 17:46 Decision to Hospitalize by Provider. [facility] 06/27 12:38 Patient left the ED. ha1 Signatures: Dispatcher [employer] EDMT Brett Lennon MD MD cha Moreno, Amanda am2 Prokisch, Amanda RN RN cj3 Belkys Avilez, RN RN vg1 Aurora Coleman RN RN ha1 Angelica Donahue RN RN ko1
[2022-06-26] MEDS: METOPROLOL TAR 50 MG TAB PO SCH ×2 (18:00→21:00)
[2022-06-26] MEDS ORDERED: ALPRAZOLAM 0.25 MG TABLET PO PRN (18:18)
[2022-06-26] MEDS ORDERED: ACETAMINOPHEN 500 MG TAB PO PRN (18:18)
--- NOTE | 2022-06-26 18:22 | P.HP ---
Certification for Inpatient Patient admitted to: Observation With expected LOS: <2 Midnights Patient will require the following post-hospital care: None Practitioner: I am a practitioner with admitting privileges, knowledge of patient current condition, hospital course, and medical plan of care. Services: Services provided to patient in accordance with Admission requirements found in Title 42 Section 412.3 of the Code of Federal Regulations Patient History Date of Service: 06/26/22 Reason for admission: CP r/o ACS History of Present Illness: Patient is a 77-year-old female who came to the hospital with chest pain. She had just finished hemodialysis when her chest pain started. She does not have a lot of medical issues except for hypertension and she has been on hemodialysis as she developed kidney failure because of the hypertension. She also has a history of diabetes on her medical records. She states that she does not have diabetes any longer. She states that over the last few months whenever her dialysis is ending she has some chest pain. She feels like his heartburn. However, when she talked to the dialysis nurse about it advised her to go into the emergency room. She does not have any diaphoresis. She denies any nausea or vomiting. She denies any shortness of breath. She will be admitted to the hospital for further ev aluation. Allergies aspirin [From Percodan] Adverse Reaction (Verified 06/26/22 22:30) hallucination oxycodone [From Percodan] Adverse Reaction (Verified 06/26/22 22:30) hallucination Home Medications: Amlodipine [Norvasc*] 10 mg PO DAILY 06/26/22 - Past Medical/Surgical History Diabetic: Yes -: hypertension -: diabetes -: gout -: ESRD -: hysterectomy -: lumpectomy -: cataract surgery Psychosocial/ Personal History: Patient lives at home and is . - Family History Father Family History: Reviewed- Non-Contributory - Social History Smoking Status: Former smoker Alcohol use: No CD- Drugs: No Caffeine use: No Review of Systems 10-point ROS is otherwise unremarkable Physical Examination - Vital Signs Temperature: 98 F Blood Pressure: 130/70 Pulse: 80 Respirations: 18 Pulse Ox (%): 95 - Physical Exam General: Alert, In no apparent distress, Oriented x3 HEENT: Atraumatic, PERRLA, Mucous membr. moist/pink, EOMI, Sclerae nonicteric Neck: Supple, 2+ carotid pulse no bruit, No LAD, Without JVD or thyroid abnormality Respiratory: Clear to auscultation bilaterally, Normal air movement Cardiovascular: Regular rate/rhythm, Normal S1 S2 Gastrointestinal: Normal bowel sounds, Soft and benign, Non-distended, No tenderness Musculoskeletal: No tenderness Integumentary: No rashes Neurological: Normal gait, Normal speech, Normal strength at 5/5 x4 extr, Normal tone, Sensation intact, Cranial nerves 3-12 intact, Normal affect Lymphatics: No axilla or inguinal lymphadenopathy - Studies Laboratory Data (last 24 hrs) 06/26/22 15:57: WBC 8.20, Hgb 11.0 L, Hct 32.3 L, Plt Count 249 06/26/22 15:57: Sodium 135 L, Potassium 4.4, BUN 33 H, Creatinine 7.00 H*, Glucose 146 H Assessment & Plan - Problems (Diagnosis) (1) Chest pain, rule out acute myocardial infarction Current Visit: Yes Status: Acute (2) End stage renal disease Current Visit: No Status: Acute (3) Diabetes Onset Date: 01/17/17 Current Visit: No Status: Chronic Qualifiers: Diabetes mellitus type: type 2 Diabetes mellitus custodial insulin use: without custodial use Diabetes mellitus complication status: with kidney complications Diabetes mellitus complication detail: with chronic kidney disease Chronic kidney disease stage: stage 5, not on chronic dialysis Qualified Code(s): E11.22 - Type 2 diabetes mellitus with diabetic chronic kidney disease; N18.5 - Chronic kidney disease, stage 5; N18.5 - Chronic kidney disease, stage 5; N18.5 - Chronic kidney disease, stage 5; N18.5 - Chronic kidney disease, stage 5 (4) HTN (hypertension) Onset Date: 01/17/17 Current Visit: No Status: Chronic Qualifiers: Hypertension type: essential hypertension - Plan -High-sensitivity troponin -Cardiology consultation -Echocardiogram and stress test per cardiology recommendation -Repeat EKG -Work-up for other etiologies of cardiac chest pain if troponins remain negative -Lipid profile -Toll Service Observer regarding modifying risk for cardiac disease Discharge Plan: Home Plan to discharge in: 24 Hours - Advance Directives Does patient have a Living Will: No Does patient have a Durable POA for Healthcare: No - Code Status/Comfort Care Code Status Assessed: Yes Code Status: Full Code Critical Care: No Time Spent Managing PTS Care (In Minutes): 45
[2022-06-26 18:23] LABS: SARS-CoV-2 Antigen Rapid Res Negative (Negative)
[2022-06-26] MEDS: HEPARIN 5000 UNIT/ML 1 ML VIAL SQ SCH (21:00)
[2022-06-26] MEDS ORDERED: ATORVASTATIN 40 MG TAB PO SCH (21:00)
[2022-06-26 22:29] VITALS: BMI 26.2
[2022-06-26] MEDS ORDERED: ATORVASTATIN 20 MG TAB ONE (22:38)
[2022-06-26 22:57] VITALS: O2SAT 100
[2022-06-27 02:57] LABS: Absolute Lymphocytes (CBC) 2.1 K/uL (0.7-4.9); Hematocrit 30.1 % (36.0-45.0); Lymphocytes % 26.4 % (15.3-44.8); MCV 96.7 fL (80-100); MPV 8.6 fL (7.6-11.3); RBC Red Blood Cell Count 3.11 M/uL (3.86-4.86)
[2022-06-27 03:27] LABS: Potassium 4.8 mmol/L (3.5-5.1)
[2022-06-27] MEDS ORDERED: MORPHINE 2 MG/ML SYR IV PRN (04:24)
[2022-06-27] MEDS ORDERED: METOPROLOL TAR 25 MG TAB ONE ×2 (05:10→10:34)
[2022-06-27] MEDS ORDERED: DIGOXIN 0.25 MG/ML AMP ONE (05:31)
[2022-06-27] MEDS ORDERED: DIGOXIN 0.25 MG/ML AMP IV SCH (06:00)
[2022-06-27] MEDS ORDERED: REGADENOSON 0.4 MG/5 ML SYR IV ONE (07:23)
[2022-06-27 07:59] VITALS: TEMP 98
[2022-06-27] MEDS: HEPARIN 5000 UNIT/ML 1 ML VIAL SQ SCH (09:00)
[2022-06-27] MEDS ORDERED: ENOXAPARIN 40 MG/0.4 ML SQ SCH (09:00)
[2022-06-27] MEDS ORDERED: ASPIRIN EC 81 MG TAB PO SCH (09:00)
[2022-06-27] MEDS: METOPROLOL TAR 50 MG TAB PO SCH (09:00)
[2022-06-27 09:09] VITALS: BP 130/70
--- NOTE | 2022-06-27 09:21 | P.DS ---
Discharge Date: 06/27/22 Disposition: ROUTINE DISCHARGE Discharge Condition: GOOD Reason for Admission: CP r/o ACS - Problems (1) Chest pain, rule out acute myocardial infarction Current Visit: Yes Status: Acute (2) End stage renal disease Current Visit: No Status: Acute (3) Diabetes Onset Date: 01/17/17 Current Visit: No Status: Chronic Qualifiers: Diabetes mellitus type: type 2 Diabetes mellitus intermediate manager insulin use: without fci use Diabetes mellitus complication status: with kidney complications Diabetes mellitus complication detail: with chronic kidney disease Chronic kidney disease stage: stage 5, not on chronic dialysis Qualified Code(s): E11.22 - Type 2 diabetes mellitus with diabetic chronic kidney disease; N18.5 - Chronic kidney disease, stage 5; N18.5 - Chronic kidney disease, stage 5; N18.5 - Chronic kidney disease, stage 5; N18.5 - Chronic kidne y disease, stage 5 (4) HTN (hypertension) Onset Date: 01/17/17 Current Visit: No Status: Chronic Qualifiers: Hypertension type: essential hypertension Brief History of Present Illness: Patient is a 77-year-old female who came to the hospital with chest pain. She had just finished hemodialysis when her chest pain started. She does not have a lot of medical issues except for hypertension and she has been on hemodialysis as she developed kidney failure because of the hypertension. She also has a history of diabetes on her medical records. She states that she does not have diabetes any longer. She states that over the last few months whenever her dialysis is ending she has some chest pain. She feels like his heartburn. However, when she talked to the dialysis nurse about it advised her to go into the emergency room. She does not have any diaphoresis. She denies any nausea or vomiting. She denies any shortness of breath. She will be admitted to the hospital for further evaluation. Hospital Course: Patient is clinically doing well. She has some episodes of SVT while in the hospital. We have placed her on Lopressor and digoxin after hemodialysis. Her rate has been controlled. Her stress test is pending at this time. If this is negative she should be stable for discharge with outpatient follow-up with cardiology. I spoken to cardiology and they will follow her up as an outpatient. She is allergic to aspirin but do recommend taking statin therapy as her LDL was slightly elevated. We also will have cardiology follow her up to see if she needs antiplatelet or anticoagulation. She does have an aspirin allergy so we will hold off on giving her aspirin at this time. Outpatient cardiology follow-up for further recommendations for cardiac meds. Vital Signs/Physical Exam: Temp Pulse Resp BP Pulse Ox 98 F 80 18 130/70 95 06/27/22 09:09 06/27/22 09:09 06/27/22 09:09 06/27/22 09:09 06/27/22 09:09 General: Alert, In no apparent distress, Oriented x3 Laboratory Data at Discharge: WBC 7.80 K/uL (4.3-10.9) 06/27/22 02:05 Hgb 10.0 g/dL (12.0-15.0) L D 06/27/22 02:05 Hct 30.1 % (36.0-45.0) L 06/27/22 02:05 Plt Count 219 K/uL (152-406) 06/27/22 02:05 Sodium 134 mmol/L (136-145) L 06/27/22 02:05 Potassium 4.8 mmol/L (3.5-5.1) 06/27/22 02:05 BUN 49 mg/dL (7-18) H 06/27/22 02:05 Creatinine 8.20 mg/dL (0.55-1.3) H* 06/27/22 02:05 Glucose 176 mg/dL (74-106) H 06/27/22 02:05 Triglycerides Cancelled 06/27/22 06:00 Cholesterol Cancelled 06/27/22 06:00 HDL Cholesterol Cancelled 06/27/22 06:00 Cholesterol/HDL Ratio Cancelled 06/27/22 06:00 Home Medications: Amlodipine [Norvasc*] 10 mg PO DAILY 06/26/22 Atorvastatin Calcium [Lipitor] 20 mg PO BEDTIME #30 tab 06/27/22 Digoxin 125 mcg PO AFTER EACH DIALYSIS #15 tab 06/27/22 Metoprolol Tartrate [Lopressor*] 25 mg PO BID #60 tab 06/27/22 Metoprolol Tartrate [Lopressor] 25 mg PO BID #60 tab 06/27/22 New Medications: Digoxin 125 mcg PO AFTER EACH DIALYSIS #15 tab Atorvastatin Calcium [Lipitor] 20 mg PO BEDTIME #30 tab Metoprolol Tartrate [Lopressor] 25 mg PO BID #60 tab Metoprolol Tartrate [Lopressor*] 25 mg PO BID #60 tab Physician Discharge Instructions: -DC IV and DC home -Follow-up with PCP in 1 to 2 weeks -Follow-up with Cardiology in 1 to 2 weeks -Please call Dr. Scherer at [phone] if any questions regarding hospital stay -Please call nursing station at [phone] if any nursing or medication questions -Return to the emergency room if symptoms worsen Diet: Renal Activity: Fall precautions Followup: NONE,NONE [Primary Care Provider] -
[2022-06-27] MEDS ORDERED: HEPARIN 5000 UNIT/ML 1 ML VIAL ONE (10:35)
[2022-06-27] MEDS ORDERED: ONDANSETRON 4 MG/2 ML VIAL ONE (11:21)
--- NOTE | 2022-06-27 12:15 | RAD REPORT ---
EXAM DESCRIPTION: NM - Rest Stress Cardiac Imaging - 06/27/2022 11:47 am CLINICAL HISTORY: Chest pain COMPARISON: None. TECHNIQUE: The patient was administered 9.3 mCi of Tc 99m Sestamibi prior to resting SPECT imaging o f the heart. The patient was then administered 31.8 mCi of Tc 99m Sestamibi following exercise or pha rmacologic stress. Multiplanar SPECT images were reviewed. FINDINGS: The end diastolic volume is 79 ml, the end systolic volume is 20 ml, and the ejection frac tion is 74 %. No stress-induced ischemic changes are identifiable. There is a moderate area of diminished activity in the anterior wall near the apex. This is unchanged between rest and stress imaging. Scarring is fa vored though this could be breast attenuation artifact. No other scarring or significant finding iden tified. IMPRESSION: No stress-induced ischemic change seen. Focal fixed defect in the anterior wall is favored to be scarring but could be breast attenuation art ifact. Ventricular volumes and ejection fraction are well within normal limits.
--- NOTE | 2022-06-27 14:18 | EKG ---
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
--- NOTE | 2022-06-28 07:01 | ECHO ---
HEIGHT: 4 ft 11 in WEIGHT: 130 lb 0 oz DATE OF STUDY: 06/27/[address]: Deana Scherer MD 2-DIMENSIONAL: YES M.MODE: YES DOPPLER: YES COLOR FLOW: YES TDS: PORTABLE: YES DEFINITY: BUBBLE STUDY: DIAGNOSIS: CHEST PAIN, RULE OUT ACUTE CORONARY SYNDROME CARDIAC HISTORY: CATHERIZATION: NO SURGERY: NO PROSTHETIC VALVE: NO PACEMAKER: NO MEASUREMENTS (cm) DIASTOLIC (NORMALS) SYSTOLIC (NORMALS) IVSd 0.9 (0.6-1.2) LA Diam 3.1 (1.9-4.0) LVEF 59% LVIDd 4.0 (3.5-5.7) LVIDs 2.7 (2.0-3.5) %FS 31% LVPWd 1.0 (0.6-1.2) Ao Diam 2.6 (2.0-3.7) 2 DIMENSIONAL ASSESSMENT: RIGHT ATRIUM: NORMAL LEFT ATRIUM: NORMAL RIGHT VENTRICLE: NORMAL LEFT VENTRICLE: NORMAL TRICUSPID VALVE: MILD TRICUSPID REGURGITATION MITRAL VALVE: MILD MITRAL REGURGITATION PULMONIC VALVE: NORMAL AORTIC VALVE: NORMAL PERICARDIAL EFFUSION: NONE AORTIC ROOT: NORMAL LEFT VENTRICULAR WALL MOTION: NORMAL DOPPLER/COLOR FLOW: SEE BELOW COMMENTS: NORMAL LEFT VENTRICULAR EJECTION FRACTION 55-60%. NORMAL WALL MOTION. GRADE I DIASTOLIC DYSFUNCTION. MILD TRICUSPID REGURGITATION. TECHNOLOGIST: CARLENE BUENO
--- NOTE | 2022-06-28 07:07 | TREADPHA ---
DX: CHEST PAIN Date of Study: 06/27/2022 Ht: 4' 11 " Wt: 130 lb 0 oz Consulting Physician: ELENA MEDICATIONS: AMILODIPINE HISTORY: DIALYSIS, HYPERTENSION PHYSICIAL EXAMINATION: RESTING B.P.: 199/83 RESTING H.R.: 85 RESTING EKG: WITHIN NORMAL LIMITS PROTOCOL: PHARMACOLOGIC EXERCISE TIME: 3:30 B.P. AT [place]AK STRESS: 149/67 174/80 IMPRESSION: LEXISCAN STRESS TEST PERFORMED. CARDIOLITE INJECTED PER PROTOCOL. NO VENTRICULAR TACHYCARDIA, NO SUPRAVENTRICULAR TACHYCARDIA, NO CHEST PAIN. PREMATURE ATRIAL COMPLEXES NOTED WITH LEXISCAN INJECTION, SHORTNESS OF BREATH AND NAUSEATED. ZOFRAN 4 mg ADMINISTERED IV NOW, VERBAL BY DR. PARKER/ NICKIE KNOX RN. NO EKG CHANGES OF ISCHEMIA WITH LEXISCAN.
[2022-06-28] MEDS ORDERED: AMLODIPINE 10 MG TAB PO SCH (09:00)
--- NOTE | 2022-06-28 21:48 | CON ---
Date of Consultation: 06/27/2022 Reason For Consultation: Chest pain. History Of Present Illness: Ms. Chou is a 77-year-old woman patient of Dr. Dunbar, has a history of atrial fibrillation; hypertension; dyslipidemia; end-stage renal disease, on hemodialysis. Came in with atypical chest pain. No nausea, vomiting, shortness of breath, PND, orthopnea, pedal edema, palpitation, or syncope. Medications: At home include Norvasc, digoxin, Lipitor, and metoprolol. Review of Systems: Negative. Social History: Negative. Family History: Negative. Allergies: SHE IS ALLERGIC TO ASPIRIN AND HYDROCODONE. Physical Examination: Vital Signs: Stable. Afebrile. HEENT: Negative. Neck: Supple with no bruit, lymphadenopathy, JVD, or thyromegaly. Chest: Clear to auscultation and percussion. Cardiac: Revealed a regular rhythm and rate with S4 gallops. No murmurs, no rubs. Abdomen: Benign. Extremities: Revealed no clubbing, cyanosis, or edema. Diagnostic Data: Showed a creatinine of 8.0. EKG is nonspecific. Chest x-ray is negative. Impression And Plan: 1.Atypical chest pain, most likely noncardiac. Echocardiogram is pending. 2.Hypertension, well controlled. 3.End-stage renal disease, on hemodialysis. 4.History of atrial fibrillation, on digoxin, metoprolol. 5.Dyslipidemia, well controlled. 6.Diabetes, well controlled. We will see what the echocardiogram shows. She can probably go home soon. I will make an arrangemen t for her to have an outpatient Lexiscan. WILBUR/JOSE Voice ID: [id number] Report ID: [id number]
== END 2022-06-27 12:38 | disposition home or self-care (01) ==
LOC: ER 15:39 → ERHOLD 18:18
PROVIDERS: ADMIT Hospitalist; ATTEND Hospitalist
DX: R07.9 Chest pain, unspecified (principal); I10 Essential (primary) hypertension; E11.22 Type 2 diabetes mellitus with diabetic chronic kidney disease; I12.0 Hypertensive chronic kidney disease with stage 5 chronic kidney disease or end stage renal disease; Z99.2 Dependence on renal dialysis; N18.5 Chronic kidney disease, stage 5; E78.5 Hyperlipidemia, unspecified; I48.11 Longstanding persistent atrial fibrillation; Z88.8 Allergy status to other drugs, medicaments and biological substances; Z20.822 Contact with and (suspected) exposure to COVID-19
CPT/HCPCS: 93005; 93017; 93306; 85025 ×2; 80048 ×2; 36415; 80061; 84484; 71045; 78452; 96375; 96372; 96374; 99285; 87811; J1160; J1650; J3010; J2270; J2785; J2405 ×2; A9500; G0378 ×3; J1644

== ENCOUNTER 2022-08-19 04:02 | Observation (INO) | payer OTHER ==
--- OUTSIDE RECORDS SUMMARY | 2022-08-19 04:04 | XMS REPORT | Continuity of Care Document ---
:1945 Author Organization [facility] t Address [address] [place] [address] Dr. Ruiz [address] [place] [id number] Care Team Providers Name Role Phone EVARISTO OSUNA Attending Clinician Unavailable Payers Payer Name Policy Type Policy Number Effective Date Expiration Date S oleg MEDICARE PART A [id number] 2010 \T\ B 00:00:00 Problems This patient has no known problems. Allergies, Adverse Reactions, Alerts Allergy Allergy Status Severity Reaction(s) Onset Inactive Treating Comm ents Source Name Type Date Date Clinician [facility]XY[facility] DRUG Active High Hallucinates Un tate E 3-23 ity of HCL-OXYC 00:00: [place] [facility]- [facility] Medications This patient has no known medications. Procedures This patient has no known procedures. Encounters Start End Encounter Admission Attending Care Care Encounter Source Date/Time Date/Time Type Type Clinicians Facility Department ID 2018-03-12 2018-03-12 Outpatient Tatiana OSUNA [facility] [id number] 09:30:00 10:31:36 [facility] Results This patient has no known results.
[2022-08-19 05:39] LABS: Absolute Lymphocytes (CBC) 1.8 K/uL (0.7-4.9); Lymphocytes % 17.8 % (15.3-44.8); MCV 98.7 fL (80-100); MPV 9.1 fL (7.6-11.3); RBC Red Blood Cell Count 3.75 M/uL (3.86-4.86)
[2022-08-19 06:04] LABS: Albumin 3.4 g/dL (3.4-5.0); Bilirubin Total 0.4 mg/dL (0.2-1.0); Protein, Total 7.4 g/dL (6.4-8.2)
[2022-08-19 06:06] LABS: Potassium 6.4 mmol/L (3.5-5.1)
[2022-08-19 06:52] LABS: SARS-COV-2 RT PCR NEGATIVE (NEGATIVE)
--- NOTE | 2022-08-19 06:59 | EDPHYS ---
Physician Documentation [facility] Name: Kevin Chou Age: 77 yrs Sex: Female : 1945 Arrival Date: 08/19/2022 Time: 04:03 Bed 17 Private MD: ED Physician Mil Baker HPI: 08/19 05:13 This 77 yrs old Black Female presents to ER via Wheelchair with complaints of Shortness rt Of Breath. 05:13 The patient has shortness of breath at rest. Onset: The symptoms/episode began/occurred rt last night. Duration: The symptoms are continuous. The patient's shortness of breath is aggravated by supine position. Associated signs and symptoms: Pertinent positives: non-productive cough. Severity of symptoms: At their worst the symptoms were moderate. Patient on Friday dialysis presents to the ED with dyspnea, respiratory distress starting overnight, this occurred after the patient was lying down flat. Patient was reportedly hypoxic to the 60s on room air, correcting with supplemental O2. Patient is due for dialysis today, made her appointment on Friday without difficulties. Denies other acute complaints at this time, symptoms are severe in severity, no other aggravating or alleviating factors.. Historical: - Allergies: 04:29 Aspirin; vc1 04:29 Percodan; vc1 - Home Meds: 04:29 amlodipine 10 mg tab 1 tab once daily [Active]; vc1 - PMHx: 04:29 diabetes mellitus; DIALYSIS MWF; Hypertension; kidney disease; vc1 - PSHx: 04:29 Left arm fistula; vc1 - Immunization history:: Client reports receiving the 2nd dose of the Covid vaccine. - Social history:: Smoking status: Patient denies any tobacco usage or history of. - Family history:: not pertinent. ROS: 05:13 Constitutional: Negative for fever, chills, and weight loss, Eyes: Negative for injury, rt pain, redness, and discharge, ENT: Negative for injury, pain, and discharge, Neck: Negative for injury, pain, and swelling, Cardiovascular: Negative for chest pain, palpitations, and edema, Abdomen/GI: Negative for abdominal pain, nausea, vomiting, diarrhea, and constipation, MS/Extremity: Negative for injury and deformity, Skin: Negative for injury, rash, and discoloration, Neuro: Negative for headache, weakness, numbness, tingling, and seizure, Psych: Negative for depression, anxiety, suicide ideation, homicidal ideation, and hallucinations. 05:13 Respiratory: Positive for cough, shortness of breath. Exam: 05:13 Constitutional: This is a well developed, well nourished patient who is awake, alert, rt and in no acute distress. Head/Face: Normocephalic, atraumatic. Eyes: Pupils equal round and reactive to light, extra-ocular motions intact. Lids and lashes normal. Conjunctiva and sclera are non-icteric and not injected. Cornea within normal limits. Periorbital areas with no swelling, redness, or edema. ENT: Nares patent. No nasal discharge, no septal abnormalities noted. Tympanic membranes are normal and external auditory canals are clear. Oropharynx with no redness, swelling, or masses, exudates, or evidence of obstruction, uvula midline. Mucous membranes moist. Chest/axilla: Normal chest wall appearance and motion. Nontender with no deformity. No lesions are appreciated. Cardiovascular: Regular rate and rhythm with a normal S1 and S2. No gallops, murmurs, or rubs. Normal PMI, no JVD. No pulse deficits. Abdomen/GI: Soft, non-tender, with normal bowel sounds. No distension or tympany. No guarding or rebound. No evidence of tenderness throughout. Skin: Warm, dry with normal turgor. Normal color with no rashes, no lesions, and no evidence of cellulitis. MS/ Extremity: Pulses equal, no cyanosis. Neurovascular intact. Full, normal range of motion. Neuro: Awake and alert, GCS 15, oriented to person, place, time, and situation. Cranial nerves II-XII grossly intact. Motor strength 5/5 in all extremities. Sensory grossly intact. Cerebellar exam normal. Normal gait. Psych: Awake, alert, with orientation to person, place and time. Behavior, mood, and affect are within normal limits. 05:13 Respiratory: Bibasilar crackles, moderate respiratory distress.. 06:58 ECG was reviewed by the Attending Physician. rt Vital Signs: 04:26 BP 167 / 85; Pulse 96; Resp 28; Temp 97.7; Pulse Ox 100% on Non-rebreather mask; Weight vc1 61.23 kg; Height 4 ft. 11 in. (149.86 cm); 04:39 Pulse Ox 98% on 4 lpm NC; kl 05:05 BP 155 / 75; Pulse 91; Resp 20; Pulse Ox 96% on 4 lpm NC; kl 06:25 BP 153 / 75; Pulse 92; Resp 17; Temp 98(O); Pulse Ox 91% 4 lpm ; kl 04:26 Body Mass Index 27.27 (61.23 kg, 149.86 cm) vc1 MDM: 04:12 Patient medically screened. rt 07:00 Differential diagnosis: Volume overload, pneumonia, pneumothorax. Data reviewed: vital rt signs, nurses notes. ED course: Presents to the ED with respiratory distress, requiring high flow O2. Patient is found to have volume overload with superimposed pneumonia. Broad-spectrum antibiotics were given. Hyperkalemia cocktail was given. Patient is also uremic. I discussed case with on-call nephrology who arranged for dialysis today. Patient to be admitted for further care.. 08/19 04:19 Order name: CBC with Diff; Complete Time: 05:55 rt 08/19 04:19 Order name: CMP; Complete Time: 06:14 rt 08/19 04:19 Order name: Troponin High Sensitivity; Complete Time: 06:14 rt 08/19 05:55 Order name: COVID-19/FLU A+B rt 08/19 06:22 Order name: Blood Culture Adult (2) rt 08/19 06:22 Order name: Lactate w/ 2H reflex if indic. rt 08/19 04:19 Order name: Chest Single View XRAY rt 08/19 08:45 Order name: CBC with Automated Diff EDMS 08/19 08:45 Order name: CBC with Automated Diff EDMS 08/19 08:45 Order name: Comprehensive Metabolic Panel EDMS 08/19 08:45 Order name: Comprehensive Metabolic Panel EDMS 08/19 08:45 Order name: Lipid Profile EDMS 08/19 08:45 Order name: Lipid Profile EDMS 08/19 04:19 Order name: EKG; Complete Time: 04:20 rt 08/19 04:19 Order name: EKG - Nurse/Tech; Complete Time: 08:21 rt 08/19 08:45 Order name: Renal EDMS 08/19 08:45 Order name: Chest Single View EDMS 08/19 08:45 Order name: Chest Single View EDMS 08/19 08:49 Order name: CONS Physician Consult EDMS EC:58 Rate is 89 beats/min. Rhythm is regular, Normal Sinus Rhythm with No ectopy. QRS Atco rt is Normal. WI interval is normal. QRS interval is normal. QT interval is normal. No Q waves. T waves are Peaked. Administered Medications: 08:15 Drug: Calcium Gluconate 1 grams Route: IVPB; Infused Over: 60 mins; Site: right hand; bp 10:48 Follow up: IV Status: Completed infusion; IV Intake: 100ml bp 08:30 Drug: D10 in Water [4ml/kg] 250 ml Route: IVP; Site: right hand; bp 10:44 Follow up: Response: No adverse reaction bp 08:30 Drug: Sodium Bicarbonate 1 amp Route: IVP; Site: right hand; bp 10:44 Follow up: Response: No adverse reaction bp 09:00 Drug: Insulin Regular Human 10 units {Co-Signature: ll1 (Oswald Pratt RN).} Route: IVP; bp Site: right hand; 10:44 Follow up: Response: No adverse reaction bp 09:53 Drug: Cefepime 2 grams Route: IVPB; Rate: 200 ml/hr; Infused Over: 30 mins; Site: right bp hand; 10:48 Follow up: IV Status: Completed infusion; IV Intake: 100ml bp 10:15 Drug: vancoMYCIN 15 mg/kg Route: IVPB; Site: right hand; bp Disposition: 07:00 Critical Care:. rt Disposition Summary: 08/19/22 06:58 Hospitalization Ordered Hospitalization Status: Inpatient Admission rt Provider: Deana Scherer rt Condition: Critical rt Problem: new rt Symptoms: have improved rt Bed/Room Type: Standard rt Location: Telemetry/MedSurg (Inpatient)(08/19/22 17:20) em1 Room Assignment: 231(08/19/22 17:20) em1 Diagnosis - Pneumonia, unspecified organism rt - Acute respiratory failure with hypoxia rt - Hyperkalemia rt Forms: - Medication Reconciliation Form rt - SBAR form rt Critical care time excluding procedures: 07:00 Critical care time: Bedside Care: 30 minutes, Consultation: 5 minutes. Total time: 35 rt minutes Signatures: Dispatcher [employer] Thomas Paiz em1 Antonieta Guerrero RN RN jl7 Сергей Gaspar RN RN bp Zulema Ovalles RN RN vc1 Mil Baker MD MD rt Oswald Pratt RN ll1 Corrections: (The following items were deleted from the chart) 08:51 08:45 Troponin High Sensitivity ordered. EDMS EDMS 10:50 06:58 Intensive Care Unit rt jl7 10:50 06:58 rt jl7 17:20 10:50 BR ER HOLD jl7 em1 17:20 10:50 ERHOLD- jl7 em1
--- NOTE | 2022-08-19 06:59 | ER ---
Nurse's Notes [facility] Name: Kevin Chou Age: 77 yrs Sex: Female : 1945 Arrival Date: 08/19/2022 Time: 04:03 Bed 17 Private MD: Diagnosis: Pneumonia, unspecified organism;Acute respiratory failure with hypoxia;Hyperkalemia Presentation: 08/19 04:26 Chief complaint: Patient's son or daughter states: "She started breathing like this vc1 about 2 hours ago, and she was complaining she was nauseous.". Coronavirus screen: Vaccine status: Patient reports receiving the 2nd dose of the covid vaccine. unsure of national account director. Ebola Screen: No symptoms or risks identified at this time. Initial Sepsis Screen: Does the patient meet any 2 criteria? RR > 20 per min. HR > 90 bpm. Yes Does the patient have a suspected source of infection? Yes: Productive cough/pneumonia If YES to both, name of provider notified: Mil Baker MD Risk Assessment: Do you want to hurt yourself or someone else? Patient reports no desire to harm self or others. Onset of symptoms was August 19, 2022 at 02:30. 04:26 Method Of Arrival: Wheelchair vc1 04:26 Acuity: GRETA 3 vc1 04:26 Acuity: GRETA 2 vc1 Triage Assessment: 04:30 General: Appears distressed, uncomfortable, Behavior is cooperative, anxious. Pain: vc1 Denies pain. EENT: No deficits noted. No signs and/or symptoms were reported regarding the EENT system. Neuro: Level of Consciousness is awake, alert, obeys commands, Oriented to person, place, time, situation, Appropriate for age. Cardiovascular: Denies chest pain, Patient's skin is warm and dry. Respiratory: Reports shortness of breath labored breathing Airway is patent Respiratory effort is even, unlabored, Respiratory pattern is regular, symmetrical, tachypnea Onset: The symptoms/episode began/occurred gradually, the patient has moderate shortness of breath. GI: Reports nausea. : No deficits noted. No signs and/or symptoms were reported regarding the genitourinary system. Derm: No deficits noted. No signs and/or symptoms reported regarding the dermatologic system. Musculoskeletal: No deficits noted. No signs and/or symptoms reported regarding the musculoskeletal system. Historical: - Allergies: 04:29 Aspirin; vc1 04:29 Percodan; vc1 - Home Meds: 04:29 amlodipine 10 mg tab 1 tab once daily [Active]; vc1 - PMHx: 04:29 diabetes mellitus; DIALYSIS MWF; Hypertension; kidney disease; vc1 - PSHx: 04:29 Left arm fistula; vc1 - Immunization history:: Client reports receiving the 2nd dose of the Covid vaccine. - Social history:: Smoking status: Patient denies any tobacco usage or history of. - Family history:: not pertinent. Screenin:31 Abuse screen: Denies threats or abuse. Nutritional screening: No deficits noted. vc1 Tuberculosis screening: No symptoms or risk factors identified. 11:09 [facility] ED Fall Risk Assessment (Adult) History of falling in the last 3 months, bp including since admission No falls in past 3 months (0 pts). Assessment: 04:20 General: Appears distressed, uncomfortable, Behavior is cooperative, anxious. kl Cardiovascular: Rhythm is sinus rhythm with 1st degree heart block. Respiratory: Airway is patent Trachea midline Respiratory effort is labored, with nasal flaring, Breath sounds are diminished bilaterally. Breath sounds with wheezes bilaterally. GI: Reports nausea. : No deficits noted. No signs and/or symptoms were reported regarding the genitourinary system. EENT: No deficits noted. No signs and/or symptoms were reported regarding the EENT system. Derm: No deficits noted. No signs and/or symptoms reported regarding the dermatologic system. 07:00 Reassessment: RECD REPORT FROM MICK JOYNER. 77YO BF P/W SOB, DUE DIALYSIS. bp 08:30 Reassessment: PHLEBOTOMY AT B/S FOR 2ND CX. bp 11:08 Reassessment: DIALYSIS PENDING. bp Vital Signs: 04:26 BP 167 / 85; Pulse 96; Resp 28; Temp 97.7; Pulse Ox 100% on Non-rebreather mask; Weight vc1 61.23 kg; Height 4 ft. 11 in. (149.86 cm); 04:39 Pulse Ox 98% on 4 lpm NC; kl 05:05 BP 155 / 75; Pulse 91; Resp 20; Pulse Ox 96% on 4 lpm NC; kl 06:25 BP 153 / 75; Pulse 92; Resp 17; Temp 98(O); Pulse Ox 91% 4 lpm ; kl 04:26 Body Mass Index 27.27 (61.23 kg, 149.86 cm) vc1 ED Course: 04:03 Patient arrived in ED. ja2 04:11 Mil Baker MD is Attending Physician. rt 04:29 Triage completed. vc1 04:32 Arm band placed on left wrist. vc1 04:32 Patient has correct armband on for positive identification. Placed in gown. Bed in low vc1 position. Call light in reach. Client placed on continuous cardiac and pulse oximetry monitoring. NIBP monitoring applied. 04:35 No provider procedures requiring assistance completed. Inserted saline lock: 20 gauge kl in right forearm, using aseptic technique. Blood collected. 04:40 CMP Sent. kl 04:40 Troponin High Sensitivity Sent. kl 04:40 CBC with Diff Sent. kl 05:22 Chest Single View XRAY In Process Unspecified. EDMS 06:04 Notified ED physician of a critical lab result(s). potassium of 6.4, creatinine of 10.[address] Baker notified. 06:58 Deana Scherer MD is Hospitalizing Provider. rt 07:33 Сергей Gaspar, ANYA is Primary Nurse. bp 08:23 EKG done, by ED staff. rs5 11:09 Patient admitted, IV remains in place. bp Administered Medications: 08:15 Drug: Calcium Gluconate 1 grams Route: IVPB; Infused Over: 60 mins; Site: right hand; bp 10:48 Follow up: IV Status: Completed infusion; IV Intake: 100ml bp 08:30 Drug: D10 in Water [4ml/kg] 250 ml Route: IVP; Site: right hand; bp 10:44 Follow up: Response: No adverse reaction bp 08:30 Drug: Sodium Bicarbonate 1 amp Route: IVP; Site: right hand; bp 10:44 Follow up: Response: No adverse reaction bp 09:00 Drug: Insulin Regular Human 10 units {Co-Signature: ll1 (Oswald Pratt RN).} Route: IVP; bp Site: right hand; 10:44 Follow up: Response: No adverse reaction bp 09:53 Drug: Cefepime 2 grams Route: IVPB; Rate: 200 ml/hr; Infused Over: 30 mins; Site: right bp hand; 10:48 Follow up: IV Status: Completed infusion; IV Intake: 100ml bp 10:15 Drug: vancoMYCIN 15 mg/kg Route: IVPB; Site: right hand; bp Medication: 04:32 VIS not applicable for this client. vc1 Intake: 10:48 IV: 100ml; Total: 100ml. bp 10:48 IV: 100ml; Total: 200ml. bp Outcome: 06:58 Decision to Hospitalize by Provider. rt 18:05 Patient left the ED. ko1 Signatures: Dispatcher [employer] Dee Dee Gutierres, RN RN Vivian Gregory RN Сергей Rosen RN RN Marie Nielsen Vanessa, RN RN vc1 Angelica Donahue RN RN ko1 Mil Baker MD MD rt Herber Tripathi rs5 Oswald Pratt RN ll1
[2022-08-19] MEDS ORDERED: INSULIN -REGULAR HUMAN 50 UNIT/0.5 ML ML ONE (07:54)
[2022-08-19] MEDS ORDERED: SODIUM BICARB 50 MEQ/50ML VIAL ONE (07:56)
[2022-08-19] MEDS ORDERED: CEFEPIME 2 GM VIAL ONE (07:56)
[2022-08-19] MEDS ORDERED: VANCOMYCIN 1 GM/VIAL ONE (07:56)
[2022-08-19] MEDS ORDERED: NA CHLORIDE 0.9% 250 ML ONE (07:56)
[2022-08-19] MEDS ORDERED: NA CHLORIDE 0.9% 100 ML IV ONE (07:56)
[2022-08-19] MEDS ORDERED: CALCIUM GLUCONATE 1 GM IVPB 1 GM/50 ML BAG IV ONE (07:57)
[2022-08-19] MEDS ORDERED: D10W 250 ML IV ONE (07:57)
[2022-08-19] MEDS ORDERED: ACETAMINOPHEN 500 MG TAB PO PRN (08:40)
[2022-08-19] MEDS ORDERED: ONDANSETRON 4 MG/2 ML VIAL IV PRN (08:40)
[2022-08-19] MEDS ORDERED: MORPHINE 2 MG/ML SYR IV PRN (08:40)
[2022-08-19] MEDS ORDERED: HYDRALAZINE HCL 20 MG/ML VIAL IV PRN (08:50)
[2022-08-19] MEDS ORDERED: FUROSEMIDE 40 MG/4 ML VIAL IV SCH (09:00)
[2022-08-19] MEDS ORDERED: MORPHINE 2 MG/ML SYR ONE (10:06)
[2022-08-19] MEDS ORDERED: ONDANSETRON 4 MG/2 ML VIAL ONE (10:07)
[2022-08-19 15:09] VITALS: BMI 27.2
--- NOTE | 2022-08-19 15:26 | RAD REPORT ---
EXAM DESCRIPTION: XR Chest, 1 View CLINICAL HISTORY: The patient is 77 years old and is Female; DYSPNEA TECHNIQUE: Single view of the chest. COMPARISON: No relevant prior studies available. FINDINGS: Lungs: Bilateral pulmonary opacification is suspicious for pneumonia. Pleural space: No significant right pleural fluid. Small amount of left pleural fluid may be pre sent. No pneumothorax. Heart: Unremarkable. No cardiomegaly. Mediastinum: Unremarkable. Bones/joints: No acute fracture visualized. Upper abdomen: No free air in the visualized upper abdomen. IMPRESSION: Bilateral pulmonary opacification is suspicious for pneumonia. Electronically signed by: Yolanda Borrego MD 08/19/2022 5:39 AM ENTERPRISE ACCOUNT EXECUTIVE Due to temporary technical issues with the PACS/Fluency reporting system, reports are being signed by the in house radiologists without review as a courtesy to insure prompt reporting. The interpreting radiologist is fully responsible for the content of the report.
--- NOTE | 2022-08-19 17:34 | CON ---
Date of Consultation: 08/19/2022 Reason For Consultation: ESRD. History Of Present Illness: Ms. Chou is a 77-year-old black female with past medical history sign ificant for ESRD, on dialysis, hypertension, hyperlipidemia, presented to the ER with shortness of br eath and was found to have significant hyperkalemia. She had to be admitted for initiation of dialys is. The patient reports compliance with dialysis treatments; however, she possibly might have been n oncompliant with her diet. Past Medical History: Significant for history of ESRD, on dialysis, hypertension, coronary artery di sease, chronic congestive heart failure, type 2 diabetes, gout, hysterectomy, lumpectomy, cataract segura rgery. Social History: No history of tobacco, alcohol, or drug use reported. Review of Systems: As per history of present illness. Physical Examination: Vital Signs: Have been reviewed and are stable. General: She appears in no acute distress. Lungs: Clear to auscultation with diminished breath sounds at bases. Heart: Auscultation of the heart revealed regular rate and rhythm. Extremities: Showed no evidence of edema. Laboratory Data: Showing potassium of 6.4, BUN of 107 and creatinine of 12.7. CBC showing stable he moglobin, hematocrit, and platelet count. Current Medications: Have been reviewed. Impression: 1.End-stage renal disease, on dialysis. 2.Pulmonary edema with volume overload and hypertension secondary to noncompliance with diet. Plan: For dialysis today and 2-3 L of ultrafiltration. Continue to monitor closely and we will foll ow up tomorrow. All home medications can be resumed. VV/MODL Voice ID: [id number] Report ID: [id number]
[2022-08-19] MEDS: METOPROLOL TAR 25 MG TAB PO SCH (22:03)
[2022-08-20 04:35] VITALS: O2SAT 94
[2022-08-20] MEDS: METOPROLOL TAR 25 MG TAB PO SCH ×2 (05:45→17:11)
[2022-08-20 06:29] LABS: Bilirubin Total 0.5 mg/dL (0.2-1.0); Potassium 5.3 mmol/L (3.5-5.1)
[2022-08-20 07:14] LABS: Absolute Lymphocytes (CBC) 1.9 K/uL (0.7-4.9); Hematocrit 35.8 % (36.0-45.0); Lymphocytes % 19.6 % (15.3-44.8); MCV 97.1 fL (80-100); MPV 9.4 fL (7.6-11.3); RBC Red Blood Cell Count 3.69 M/uL (3.86-4.86)
[2022-08-20] MEDS ORDERED: LOSARTAN POTASSIUM 50 MG TABLET PO SCH (09:00)
--- NOTE | 2022-08-20 09:36 | RAD REPORT ---
EXAM DESCRIPTION: RAD - Chest Single View - 08/20/2022 6:59 am CLINICAL HISTORY: CHF Chest pain. COMPARISON: Chest Single View dated 08/19/2022; Chest Single View dated 06/26/2022; Chest Single View dated 12/05/2021; Chest Single View dated 12/04/2021 FINDINGS: Portable technique limits examination quality. Since 08/19/2022 there has been moderate improvement in bilateral pneumonia pattern. The heart is mil dly prominent size. No displaced fractures. IMPRESSION: Moderate improvement in bilateral pneumonia/lung consolidation since yesterday's study.
--- NOTE | 2022-08-20 13:42 | EKG ---
Test Date: 2022-08-19 Test Time: 08:07:48 Journal Clerk: MARVIN MEASUREMENT RESULTS: Intervals: Rate: 87 WI: 246 QRSD: 72 QT: 376 QTc: 452 [place]: P: 54 WI: 246 QRS: 16 T: 42 INTERPRETIVE STATEMENTS: Sinus rhythm with 1st degree AV block Cannot rule out Anterior infarct, age undetermined Abnormal ECG Compared to ECG 08/19/2022 06:04:04 Myocardial infarct finding now present Electronically Signed On 08-20-22 13:38:46 APPEALS BOARD REFEREE by Jevon French
--- NOTE | 2022-08-20 13:42 | EKG ---
Test Date: 2022-08-19 Test Time: 06:04:04 Tattooer: MICK MEASUREMENT RESULTS: Intervals: Rate: 89 FL: 254 QRSD: 70 QT: 364 QTc: 442 [place]: P: 65 FL: 254 QRS: 26 T: 72 INTERPRETIVE STATEMENTS: Sinus rhythm with 1st degree AV block Otherwise normal ECG Compared to ECG 06/26/2022 15:55:15 First degree AV block now present Electronically Signed On 08-20-22 13:39:12 MANAGER CLEANING by Jevon French
--- NOTE | 2022-08-20 14:41 | P.PN ---
Nephrology note: (S) Pt seen on HD, tolerating session, BP has improved, pt reports improvement in chronic dyspnea, is on LFNC at home (O) Vitals reviewed in the EMR Physical Examination: General: She appears in no acute distress. HEENT: Head atraumatic, sclera anicteric, NC present Lungs: b/l air entry without rales on anterior auscultation Heart: Auscultation of the heart revealed regular rate and rhythm. Extremities: Showed no evidence of any sig edema currently Neuro: Awake, alert, oriented Laboratory Data: Reviewed in the EMR Impression: 1. End-stage renal disease, on dialysis. Additional HD performed today 2. Azotemia, hyperkalemia -addressing with additional HD, will review OP unit HD parameters and adjust accordingly 3. Hypertensive urgency, acute pulm edema -improved post UF on HD, resume home meds including beta satinder and CCB on discharge, will review EDW at her OP unit Abbe Zarate MD, ANGELINA
[2022-08-21] MEDS: METOPROLOL TAR 25 MG TAB PO SCH (06:34)
[2022-08-21 09:06] VITALS: BP 130/60; TEMP 97.3
--- NOTE | 2022-08-21 10:26 | P.HP ---
Certification for Inpatient Patient admitted to: Observation With expected LOS: <2 Midnights Patient will require the following post-hospital care: None Practitioner: I am a practitioner with admitting privileges, knowledge of patient current condition, hospital course, and medical plan of care. Services: Services provided to patient in accordance with Admission requirements found in Title 42 Section 412.3 of the Code of Federal Regulations Patient History Date of Service: 08/19/22 Reason for admission: Chest pain; Shortness of breath History of Present Illness: Patient is a 77-year-old female with a history of end-stage renal disease who comes into the hospital with fluid overload. Patient also having chest pain. She was seen in the ER and her troponins were slightly elevated. Patient also with some fluid overload we will get nephrology to arrange for hemodialysis. Patient will be admitted to the hospital for observation. Allergies aspirin [From Percodan] Adverse Reaction (Verified 06/26/22 22:30) hallucination oxycodone [From Percodan] Adverse Reaction (Verified 06/26/22 22:30) hallucination Home Medications: Amlodipine [Norvasc*] 10 mg PO DAILY 06/26/22 Atorvastatin Calcium [Lipitor*] 20 mg PO BEDTIME #30 tab 06/27/22 Digoxin 125 mcg PO AFTER EACH DIALYSIS #15 tab 06/27/22 Metoprolol Tartrate [Lopressor*] 25 mg PO BID #60 tab 06/27/22 Metoprolol Tartrate [Lopressor*] 25 mg PO BID #60 tab 06/27/22 - Past Medical/Surgical History Has patient received pneumonia vaccine in the past: Yes Diabetic: Yes -: hypertension -: diabetes -: gout -: ESRD -: hysterectomy -: lumpectomy -: cataract surgery Psychosocial/ Personal History: Patient lives at home and is . - Family History Father Family History: Reviewed- Non-Contributory - Social History Smoking Status: Never smoker Alcohol use: No CD- Drugs: No Place of Residence: Home Review of Systems 10-point ROS is otherwise unremarkable Physical Examination - Vital Signs Temperature: 97.3 F Blood Pressure: 130/60 Pulse: 70 Respirations: 14 Pulse Ox (%): 98 - Physical Exam General: Alert, In no apparent distress, Oriented x3 HEENT: Atraumatic, PERRLA, Mucous membr. moist/pink, EOMI, Sclerae nonicteric Neck: Supple, 2+ carotid pulse no bruit, No LAD, Without JVD or thyroid abnormality Respiratory: Diminished, Crackles/rales Cardiovascular: Regular rate/rhythm, Normal S1 S2, Systolic murmur Gastrointestinal: Normal bowel sounds, Soft and benign, Non-distended, No tenderness Musculoskeletal: No clubbing, No swelling, No tenderness Integumentary: No rashes Neurological: Normal gait, Normal speech, Normal strength at 5/5 x4 extr, Normal tone, Normal affect Lymphatics: No axilla or inguinal lymphadenopathy Assessment & Plan - Problems (Diagnosis) (1) Chest pain, rule out acute myocardial infarction Current Visit: No Status: Acute (2) Diabetes mellitus type 2 in nonobese Current Visit: No Status: Acute (3) End stage renal disease Current Visit: No Status: Acute (4) HTN (hypertension) Onset Date: 01/17/17 Current Visit: No Status: Chronic (5) GERD (gastroesophageal reflux disease) Current Visit: No Status: Suspected Qualifiers: - Plan -High-sensitivity troponin -Cardiology consultation pending -Echocardiogram pending -Repeat EKG -Lipid profile -Lighting Equipment Operator regarding modifying risk for cardiac disease Discharge Plan: Home Plan to discharge in: Greater than 2 days - Advance Directives Does patient have a Living Will: No Does patient have a Durable POA for Healthcare: No Critical Care: No Time Spent Managing PTS Care (In Minutes): 45
--- NOTE | 2022-08-21 10:28 | P.PN ---
Subjective Date of Service: 08/20/22 Subjective: No new changes, No C/O voiced, Improving Review of Systems 10-point ROS is otherwise unremarkable Physical Examination - Vital Signs Temperature: 97.3 F Blood Pressure: 130/60 Pulse: 70 Respirations: 14 Pulse Ox (%): 98 - Physical Exam General: Alert, In no apparent distress, Oriented x3 Respiratory: Diminished, Crackles/rales Cardiovascular: Regular rate/rhythm, Normal S1 S2, No murmurs Gastrointestinal: Normal bowel sounds, Soft and benign, Non-distended, No tenderness Musculoskeletal: No clubbing, No swelling, No tenderness Neurological: Sensation intact, Cranial nerves 3-12 intact - Studies Medications List Reviewed: Yes Assessment & Plan - Problems (Diagnosis) (1) Chest pain, rule out acute myocardial infarction Current Visit: No Status: Acute (2) Diabetes mellitus type 2 in nonobese Current Visit: No Status: Acute (3) End stage renal disease Current Visit: No Status: Acute (4) HTN (hypertension) Onset Date: 01/17/17 Current Visit: No Status: Chronic (5) GERD (gastroesophageal reflux disease) Current Visit: No Status: Suspected Qualifiers: - Plan Continue with plan of care as mentioned below: -Anticipated discharge today but hemodialysis first and then possible discharge. -Cardiology consultation pending -Echocardiogram pending -Repeat EKG -Lipid profile -Associate Financial Planner regarding modifying risk for cardiac disease Discharge Plan: Home Plan to discharge in: 48 Hours - Advance Directives Does patient have a Living Will: No Does patient have a Durable POA for Healthcare: No - Code Status/Comfort Care Code Status Assessed: Yes Code Status: Full Code Critical Care: No Time Spent Managing PTS Care (In Minutes): 35
--- NOTE | 2022-08-21 15:41 | P.PN ---
Nephrology note: (S) Pt seen on HD, did not discharge yesterday due to some generalized weakness but did work with PT today and ambulated short distance without difficulty (O) Vitals reviewed in the EMR Physical Examination: General: She appears in no acute distress. HEENT: Head atraumatic, sclera anicteric, NC present Lungs: b/l air entry without rales on anterior auscultation Heart: Auscultation of the heart revealed regular rate and rhythm. Extremities: Showed no evidence of any sig edema currently Neuro: Awake, alert, oriented Laboratory Data: Reviewed in the EMR Impression: 1. End-stage renal disease, on dialysis. HD per regular MWF schedule performed yesterday, session shortened a bit as pt ran yesterday 2. Azotemia, hyperkalemia -addressed with additional HD, will review OP unit HD parameters and adjust accordingly 3. Hypertensive urgency, acute pulm edema -improved post UF on HD, resume home meds including beta satinder and CCB on discharge, will review EDW at her OP unit Abbe Zarate MD, ANGELINA
== END 2022-08-21 16:34 | disposition home or self-care (01) ==
LOC: ER 04:02 → ERHOLD 08:41 → 2ND 18:00
PROVIDERS: ADMIT Hospitalist; ATTEND Hospitalist
DX: N18.6 End stage renal disease (principal); J18.9 Pneumonia, unspecified organism; J96.01 Acute respiratory failure with hypoxia; I16.0 Hypertensive urgency; I10 Essential (primary) hypertension; E11.9 Type 2 diabetes mellitus without complications; K21.9 Gastro-esophageal reflux disease without esophagitis; E87.70 Fluid overload, unspecified; J81.1 Chronic pulmonary edema; R79.89 Other specified abnormal findings of blood chemistry; E87.5 Hyperkalemia; Z20.822 Contact with and (suspected) exposure to COVID-19; Z99.2 Dependence on renal dialysis; Z88.6 Allergy status to analgesic agent
CPT/HCPCS: 96365; 93005 ×2; 87040 ×2; 85025 ×2; 36415 ×2; 80061; 82947 ×7; 83605; 84484; 80053 ×2; 0240U; 71045 ×2; 90935 ×3; 97116; 97161; 97530; 96375; 99284; 96366; J1815; J3370; J0692; J2270; J1644 ×3; J0610; J7050; J2405; G0378

== ENCOUNTER 2023-05-07 18:33 | Observation (INO) | payer OTHER ==
--- OUTSIDE RECORDS SUMMARY | 2023-05-07 18:36 | XMS REPORT | Continuity of Care Document ---
:1945 Author Organization [facility] t Address [address] [place] [address] Care Team Providers Name Role Phone ALLAN JOLLY Attending Clinician Unavailable ADRIENNE SOTO Attending Clinician Unavailable EVARISTO OSUNA Attending Clinician Unavailable Payers Payer Name Policy Type Policy Number Effective Date Expiration Date Liss dejesus [facility] TXP [id number] 2023 CLASSIC NO PREMIUM 00:00:00 R2T MEDICARE PART A [id number] 2010 \T\ B 00:00:00 Problems Condition Condition Condition Status Onset Resolution Last Treating Co mments Source Name Details Category Date Date Treatment Clinician Date HTN HTN Disease Active Adele (hypertens (hypertens 05-01 Se ybold ion) ion) 00:00: - 00 Externa l GERD GERD Disease Active Adele (gastroeso (gastroeso 05-01 Se ybold phageal phageal 00:00: - reflux reflux 00 Externa disease) disease) l Chronic Chronic Disease Active Adele respirator respirator 05-01 Se ybold y failure y failure 00:00: - with with 00 Externa hypoxia, hypoxia, l on home O2 on home O2 therapy therapy COVID-19 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 hauler hauler 00:00: - 00 Externa l ESRD (end ESRD (end Disease Active Tye abad stage stage 05-01 Seybold renal renal 00:00: - disease) disease) 00 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 dialysis Allergies, Adverse Reactions, Alerts Allergy Allergy Status Severity Reaction(s) Onset Inactive Treating Comm ents Source Name Type Date Date Clinician Oxycodon Propensi Active Hallucinatio percoda n Adele e-Aspiri ty to ns 3- Seybold n adverse 00:00: - reaction 00 Externa s l OXYCODON DRUG Active High Hallucinates Un tate E 3- ity of HCL-OXYC 00:00: [place] ODONE- 00 [facility] Calcium Propensi Active Other Adele Acetylsa ty to 04-22 reaction( Seybo ld licylate adverse 00:00: s): - reaction 00 hallucina Exter na s tion, l Rash Oxycodon Propensi Active Other Adele e ty to 8 reaction( Seybold adverse 00:00: s): - reaction 00 hallucina Exter na s tion, l Rash Social History Social Habit Start Date Stop Date Quantity Comments Source Gender identity Adele alasezekiel - External Sexual orientation Adele Bahena - External History of Social 2023-05-01 2023-05-01 Adele Seybold function 00:00:00 00:00:00 - External Education 2023-05-01 2023-05-01 17 Adele Seybold 00:00:00 00:00:00 - External Tobacco use and 2023-05-01 2023-05-01 Smokeless tobacco Ke albina ybold exposure 00:00:00 00:00:00 non-user - External Alcohol intake 2023-05-01 2023-05-01 Lifetime Adele Backganga bold 00:00:00 00:00:00 non-drinker - External (finding) Sex [birth year] Adele Back ybold 00:00:00 00:00:00 - External Smoking Status Start Date Stop Date Source Never smoked tobacco Adele Backyb old - External Medications Ordered Filled Start Stop Current Ordering Indication Dosage Frequency Signature Comments Components Source Medication Medication Date Date Medication? Clinician (SIG) Name Name Atenolol Yes [id number] 1 tablet Adele MG oral 9- by mouth Seybold Tablet 00:00: on FRIDAY, Friday Externa AND FRIDAY l AT BEDTIME . Amlodipine Yes 10mg Take 1 Kelse y Besylate 10 7-19 tablet (10 Se ybold MG oral 00:00: mg total) - Tablet 00 by mouth Externa daily. l Atenolol 25 2022- No 25mg Take 1 Tye sey MG oral 7-14 05-01 tablet (25 Seybo ld Tablet 00:00: 00:00 mg total) - 00 :00 by mouth Externa three l times a week 1 tablet by mouth on FRIDAY, FRIDAY AND FRIDAY AT BEDTIME . Pantoprazol Yes 40mg Take 1 Sophie ey e Sodium 40 4-24 tablet (40 Se ybold MG oral 00:00: mg total) - Tablet 00 by mouth Externa Delayed daily. l Response Vital Signs Vital Name Observation Time Observation Value Comments Source Systolic blood 2023-05-01 15:54:00 99 mm[Hg] Adele Backybold - pressure External Diastolic blood 2023-05-01 15:54:00 54 mm[Hg] Casper schuler Seybold - pressure External Heart rate 2023-05-01 15:54:00 71 /min Adele aponte - External Body temperature 2023-05-01 15:54:00 36.11 [place] Sophieliss Trevizoold - External Respiratory rate 2023-05-01 15:54:00 20 /min Sophie leblanc ybold - External Body height 2023-05-01 15:54:00 149.9 cm Adele aponte - External Body weight 2023-05-01 15:54:00 63.957 kg Adele aponte - External BMI 2023-05-01 15:54:00 28.48 kg/m2 Adele aponte - External Oxygen saturation in 2023-05-01 15:54:00 100 /min Adele Bahena - Arterial blood by External Pulse oximetry Procedures This patient has no known procedures. Encounters Start End Encounter Admission Attending Care Care Encounter Source Date/Time Date/Time Type Type Clinicians Facility Department ID 2023-06-03 2023-06-03 Outpatient ADELE JOLLY [id number] Adele 10:00:00 10:00:00 ALLAN ybol d 2023-05-29 2023-05-29 Outpatient ADRIENNE SOTO [id number] Adele 13:30:00 13:30:00 Negrita norris 2023-05-01 2023-05-01 Outpatient ADELE JOLLY [id number] Adele 10:45:00 10:45:00 ALLAN norris 2018-03-12 2018-03-12 Outpatient Tatiana OSUNA [facility] [id number] [facility] 09:30:00 10:31:36 EVARISTO mcadams [facility] Results This patient has no known results.
[2023-05-07 19:24] LABS: Absolute Lymphocytes (CBC) 2.5 K/uL (0.7-4.9); Hematocrit 32.2 % (36.0-45.0); Lymphocytes % 28.8 % (15.3-44.8); MCV 98.9 fL (80-100); MPV 8.2 fL (7.6-11.3); Platelets 199 thou/uL (152-406); RBC Red Blood Cell Count 3.25 M/uL (3.86-4.86)
[2023-05-07 19:26] LABS: Protime INR 1.05
[2023-05-07 19:45] LABS: Albumin 3.4 g/dL (3.4-5.0); Bilirubin Direct 0.1 mg/dL (0-0.2); Bilirubin Indirect, Calculated 0.2 mg/dL (0.2-0.8); Bilirubin Total 0.3 mg/dL (0.2-1.0); Magnesium 1.8 mg/dL (1.6-2.4); Potassium 4.5 mEq/L (3.5-5.1); Protein, Total 7.8 g/dL (6.4-8.2)
--- NOTE | 2023-05-07 20:01 | RAD REPORT ---
EXAM DES[facility] CLINICAL HISTORY: CHEST PAIN COMPARISON: Chest Single View dated 08/20/2022; Chest Single View dated 08/19/2022; Chest Single Vie w dated 06/26/2022; Chest Single View dated 12/05/2021 TECHNIQUE: Portable AP view of the chest. FINDINGS: The lungs are clear. Significant improvement since the prior exam, with mild residual back ground interstitial thickening. No pneumothorax or effusion. The cardiomediastinal contours are unre markable. IMPRESSION: No acute cardiopulmonary process.
--- NOTE | 2023-05-07 20:19 | EDPHYS ---
Physician Documentation [facility] Name: Kevin Chou Age: 78 yrs Sex: Female : 1945 Arrival Date: 05/07/2023 Time: 18:33 Bed 4 Private MD: Ariel Morfin ED Physician Ted Peralta HPI: 05/07 20:40 This 78 yrs old Black Female presents to ER via Wheelchair with complaints of Chest ms3 Pain, Back Pain. 20:40 78-year-old female with past medical history of diabetes, dialysis, hypertension ms3 presents for chest pain that began 45 minutes prior to arrival. Patient states the pain is squeezing and rated a 5/10. Patient denies any alleviating or inciting factors. Historical: - Allergies: 18:43 Aspirin; iw 18:43 Percodan; iw - PMHx: 18:43 diabetes mellitus; DIALYSIS MWF; Hypertension; kidney disease; iw - PSHx: 18:43 Left arm fistula; iw - Immunization history:: Adult Immunizations unknown. - Social history:: Smoking status: unknown. ROS: 20:40 Constitutional: Negative for fever, and chills. Neck: Negative for injury, pain, and ms3 swelling. 20:40 Respiratory: Negative for shortness of breath, cough, wheezing, and pleuritic chest pain, Abdomen/GI: Negative for abdominal pain, nausea, vomiting, diarrhea, and constipation, Skin: Negative for injury, rash, and discoloration. 20:40 Cardiovascular: Positive for chest pain. 20:40 All other systems are negative. Exam: 19:14 ECG was reviewed by the Attending Physician. ms3 20:40 Constitutional: This is a well developed, well nourished patient who is awake, alert, ms3 and in no acute distress. Head/Face: Normocephalic, atraumatic. Chest/axilla: Normal chest wall appearance and motion. Nontender with no deformity. Cardiovascular: Regular rate and rhythm with a normal S1 and S2. No gallops, murmurs, or rubs. Normal PMI, no JVD. No pulse deficits. Respiratory: Lungs have equal breath sounds bilaterally, clear to auscultation and percussion. No rales, rhonchi or wheezes noted. No increased work of breathing, no retractions or nasal flaring. Skin: Warm, dry with normal turgor. Normal color with no rashes, no lesions, and no evidence of cellulitis. MS/ Extremity: Pulses equal, no cyanosis. Neurovascular intact. Full, normal range of motion. Vital Signs: 18:43 BP 117 / 57; Pulse 78; Resp 16; Temp 97.7; Pulse Ox 100% on 2 lpm NC; Weight 63.96 kg; iw Height 4 ft. 11 in. ; Pain 5/10; 19:05 BP 128 / 60; Pulse 69; Resp 17 S; Pulse Ox 99% on 2 lpm NC; ha1 20:00 BP 119 / 57; Pulse 68; Resp 17 S; Pulse Ox 100% on 2 lpm NC; ha1 21:35 BP 123 / 53; Pulse 68; Resp 17; Temp 98; Pulse Ox 100% on 2 lpm NC; rv 18:43 Body Mass Index 28.48 (63.96 kg, 149.86 cm) iw 18:43 Pain Scale: Adult iw MDM: 19:02 Patient medically screened. ms3 19:14 HEART Score: History: Moderately Suspicious (1), ECG: Non specific repolarization ms3 disturbance / LBTB / PM (1), Age: > or = 65 years (2), Risk Factors: 1 or 2 risk factors (1), Troponin: < or = 1 x Normal Limit (0), Total Score = 5. The patient was not given aspirin in the Emergency Department. Data reviewed: vital signs, nurses notes, lab test result(s), EKG, radiologic studies, and as a result, I will admit patient. Consideration of Admission/Observation Patient was admitted/placed on observation. Management of patient was discussed with the following: Hospitalist: Asif Trotter NP on behalf of Dr Summers. Independent interpretation of the following test(s) in the Emergency Department EKG: See my EKG interpretation above X-Ray: My interpretation is CXR image reviewed by me neg acute. Care significantly affected by the following chronic conditions: Diabetes, Hypertension, Chronic Kidney Disease. Counseling: I had a detailed discussion with the patient and/or guardian regarding the historical points, exam findings, and any diagnostic results supporting the discharge/admit diagnosis, lab results, radiology results, the need for further work-up and treatment in the hospital. ED course: Discussed necessity for observation with patient. Patient understands agrees with plan. All questions were answered. Return precautions discussed include worsening symptoms, or any other concerns. 20:40 Differential diagnosis: abnormal EKG, acute myocardial infarction, coronary artery ms3 disease chest wall pain, congestive heart failure pneumonia, stable angina, unstable angina. 05/07 18:45 Order name: Basic Metabolic Panel; Complete Time: 19:46 ms3 05/07 18:45 Order name: CBC with Diff; Complete Time: 19:46 ms3 05/07 18:45 Order name: LFT's; Complete Time: 19:46 ms3 05/07 18:45 Order name: Magnesium; Complete Time: 19:46 ms3 05/07 18:45 Order name: NT PRO-BNP; Complete Time: 19:46 ms3 05/07 18:45 Order name: PT-INR; Complete Time: 19:46 ms3 05/07 18:45 Order name: Troponin HS; Complete Time: 19:46 ms3 05/07 18:45 Order name: XRAY Chest (1 view); Complete Time: 20:13 ms3 05/07 18:45 Order name: EKG; Complete Time: 18:46 ms3 05/07 18:45 Order name: Cardiac monitoring; Complete Time: 19:16 ms3 05/07 18:45 Order name: EKG - Nurse/Tech; Complete Time: 19:16 ms3 05/07 18:45 Order name: IV Saline Lock; Complete Time: 19:16 ms3 05/07 18:45 Order name: Labs collected and sent; Complete Time: 19:16 ms3 05/07 18:45 Order name: O2 Per Protocol; Complete Time: 19:16 ms3 05/07 18:45 Order name: O2 Sat Monitoring; Complete Time: 19:16 ms3 EC:14 Rate is 69 beats/min. Rhythm is regular. Left axis deviation noted. NE interval is ms3 normal. QRS interval is normal. Clinical impression: NSR w/ Non-specific ST/T Changes. Interpreted by me. Reviewed by me. Administered Medications: No medications were administered Disposition Summary: 05/07/23 20:19 Hospitalization Ordered Hospitalization Status: Observation ms3 Provider: Danny Summers ms3 Location: Telemetry/MedSurg (observation) ms3 Condition: Stable ms3 Problem: new ms3 Symptoms: are unchanged ms3 Bed/Room Type: Standard ms3 Room Assignment: 427(05/07/23 21:06) cg Diagnosis - Chest pain, unspecified ms3 - End stage renal disease ms3 - Anemia, unspecified ms3 Forms: - Medication Reconciliation Form ms3 - SBAR form ms3 - Leadership Thank You Letter ms3 Signatures: Dispatcher [employer] Jennifer Motta RN RN iw Asif Trotter, SALES ASSISTANT ENTERTAINMENT AND MEDIA-C SALES ASSISTANT ENTERTAINMENT AND MEDIA-Cla1 Lisa Avilez RN RN Kennedy Ortega RN RN rv Sims, Marcus, DO DO ms3 Aurora Coleman RN RN ha1 Corrections: (The following items were deleted from the chart) 21:06 20:19 ms3 cg
--- NOTE | 2023-05-07 20:19 | ER ---
Nurse's Notes [facility] Name: Kevin Chou Age: 78 yrs Sex: Female : 1945 Arrival Date: 05/07/2023 Time: 18:33 Bed 4 Private MD: Ariel Morfin Diagnosis: Chest pain, unspecified;End stage renal disease;Anemia, unspecified Presentation: 05/07 18:43 Chief complaint: Patient states: chest pain X 1 hour. Onset of symptoms was April. 18:43 Acuity: GRETA 3 iw 18:43 Method Of Arrival: Wheelchair iw 19:53 Coronavirus screen: Vaccine status:. Ebola Screen: No symptoms or risks identified at ha1 this time. Initial Sepsis Screen: Does the patient meet any 2 criteria? No. Patient's initial sepsis screen is negative. Does the patient have a suspected source of infection? No. Patient's initial sepsis screen is negative. Risk Assessment: Do you want to hurt yourself or someone else? Patient reports no desire to harm self or others. Historical: - Allergies: 18:43 Aspirin; iw 18:43 Percodan; iw - PMHx: 18:43 diabetes mellitus; DIALYSIS MWF; Hypertension; kidney disease; iw - PSHx: 18:43 Left arm fistula; iw - Immunization history:: Adult Immunizations unknown. - Social history:: Smoking status: unknown. Screenin:53 Abuse screen: Denies threats or abuse. Denies injuries from another. Nutritional 1 screening: No deficits noted. Tuberculosis screening: No symptoms or risk factors identified. 19:59 [facility] ED Fall Risk Assessment (Adult) History of falling in the last 3 months, rv including since admission No falls in past 3 months (0 pts) Confusion or Disorientation No (0 pts) Intoxicated or Sedated No (0 pts) Impaired Gait No (0 pts) Mobility Assist Device Used No (0 pt) Altered Elimination No (0 pt) Score/Fall Risk Level 3 or more points = High Risk Oriented to surroundings, Maintained a safe environment, Educated pt \T\ family on fall prevention, incl call for assistance when getting out of bed, Assessed \T\ reinforced patient's understanding of fall precautions, Provided non-skid footwear, Hourly rounding (assess needs \T\ fall precautionary measures) done, Used ambulatory aids as needed (educated on \T\ assisted with), Used gait belt as appropriate Implemented a Fall Risk Plan of Care, Apply high fall risk patient identification: yellow non skid footwear/ fall signage, Placed fall mat w/ non beveled edge next to bed, Activated bed/chair alarm, Remained w/in arm's length of patient and in sight while toileting, Offered frequent toileting (1:1 observation), Remained with patient while ambulating, Utilized family, sitter, or virtual career technology teacher as indicated. Assessment: 19:05 General: Appears comfortable, Behavior is calm, cooperative. Pain: Complains of pain in ha1 chest Pain does not radiate. Pain currently is 4 out of 10 on a pain scale. Quality of pain is described as pressure, Pain began 1 day ago. Neuro: Level of Consciousness is awake, alert, obeys commands, Oriented to person, place, time, situation. Cardiovascular: Reports chest pain, Heart tones S1 S2 present Capillary refill < 3 seconds Patient's skin is warm and dry. Respiratory: Airway is patent Respiratory effort is even, unlabored, Respiratory pattern is regular, symmetrical. GI: No signs and/or symptoms were reported involving the gastrointestinal system. Abdomen is round non-distended. Musculoskeletal: Circulation, motion, and sensation intact. Range of motion: intact in all extremities. 20:00 Reassessment: Patient and/or family updated on plan of care and expected duration. Pain ha1 level reassessed. Patient is alert, oriented x 3, equal unlabored respirations, skin warm/dry/pink. 21:36 Reassessment: Patient and/or family updated on plan of care and expected duration. Pain rv level reassessed. Patient is alert, oriented x 3, equal unlabored respirations, skin warm/dry/pink. Vital Signs: 18:43 BP 117 / 57; Pulse 78; Resp 16; Temp 97.7; Pulse Ox 100% on 2 lpm NC; Weight 63.96 kg; iw Height 4 ft. 11 in. ; Pain 5/10; 19:05 BP 128 / 60; Pulse 69; Resp 17 S; Pulse Ox 99% on 2 lpm NC; ha1 20:00 BP 119 / 57; Pulse 68; Resp 17 S; Pulse Ox 100% on 2 lpm NC; ha1 21:35 BP 123 / 53; Pulse 68; Resp 17; Temp 98; Pulse Ox 100% on 2 lpm NC; rv 18:43 Body Mass Index 28.48 (63.96 kg, 149.86 cm) iw 18:43 Pain Scale: Adult iw ED Course: 18:34 Patient arrived in ED. mr 18:35 Ariel Morfin DO is Private Physician. mr 18:37 Ted Peralta DO is Attending Physician. ms3 18:43 Triage completed. iw 18:44 Arm band placed on. iw 19:00 Patient has correct armband on for positive identification. Bed in low position. Call ha1 light in reach. Side rails up X 1. Adult w/ patient. 19:00 Client placed on continuous cardiac and pulse oximetry monitoring. NIBP monitoring ha1 applied. 19:16 Kennedy Ortega, RN is Primary Nurse. rv 19:20 Inserted saline lock: 22 gauge in right forearm, using aseptic technique. Blood ha1 collected. 19:26 XRAY Chest (1 view) In Process Unspecified. EDMS 19:54 Oxygen administration via nasal cannula \T\ 2L/min. ha1 20:19 Danny Summers MD is Hospitalizing Provider. ms3 21:36 No provider procedures requiring assistance completed. Patient admitted, IV remains in rv place. 21:37 Provided Education on: Blood Transfusion. rv Administered Medications: No medications were administered Medication: 21:36 VIS not applicable for this client. rv Outcome: 20:19 Decision to Hospitalize by Provider. ms3 21:36 Admitted to Tele accompanied by nurse, via stretcher, room 427, with chart, Report rv called to SHAHID JOYNER 21:36 Condition: stable 21:36 Instructed on the need for admit. 21:55 Patient left the ED. rv Signatures: Dispatcher [employer] EDRI MatosBillie Jennifer Neri RN RN iw Kennedy Ortega RN RN rv Ted Peralta DO DO ms3 Aurora Coleman RN RN ha1 Corrections: (The following items were deleted from the chart) 18:44 18:43 BP 117 / 57; Pulse 78bpm; Resp 16bpm; Pulse Ox 100% RA; Temp 97.7F; iw iw
--- NOTE | 2023-05-07 20:43 | P.HP ---
Certification for Inpatient Patient admitted to: Observation With expected LOS: <2 Midnights Patient will require the following post-hospital care: None Practitioner: I am a practitioner with admitting privileges, knowledge of patient current condition, hospital course, and medical plan of care. Services: Services provided to patient in accordance with Admission requirements found in Title 42 Section 412.3 of the Code of Federal Regulations Patient History Date of Service: 05/07/23 Reason for admission: Chest pain History of Present Illness: 78-year-old female with history of ESRD on HD MWF, hypertension presents emergency department chief complaint of chest pain. She reports when getting up from a seated position to a standing position she developed a cramp-like pain in the right chest wall nonradiating not associated with any shortness of breath, diaphoresis or nausea. The pain lasted for approximate 10 to 15 minutes if this reason she decided to come to the emergency room for evaluation. She was evaluated in the emergency department EKG without STEMI criteria initial high- sensitivity troponin is normal 14.0, BNP elevated 5019 chest x-ray negative for acute findings. ED provider wishes to admit under observation for ACS rule out. She had a stress test during a hospitalization in June 2022 that was negative, has never had a heart catheterization. She also has allergy to aspirin. Allergies aspirin [From Percodan] Adverse Reaction (Verified 06/26/22 22:30) hallucination oxycodone [From Percodan] Adverse Reaction (Verified 06/26/22 22:30) hallucination Home Medications: Amlodipine [Norvasc*] 10 mg PO DAILY 06/26/22 Atorvastatin Calcium [Lipitor*] 20 mg PO BEDTIME #30 tab 06/27/22 Digoxin 125 mcg PO AFTER EACH DIALYSIS #15 tab 06/27/22 Metoprolol Tartrate [Lopressor*] 25 mg PO BID #60 tab 06/27/22 Metoprolol Tartrate [Lopressor*] 25 mg PO BID #60 tab 06/27/22 - Past Medical/Surgical History Diabetic: Yes -: hypertension -: gout -: ESRD -: hysterectomy -: lumpectomy -: cataract surgery Psychosocial/ Personal History: Patient lives at home and is . - Social History Smoking Status: Never smoker Alcohol use: No CD- Drugs: No Caffeine use: No Place of Residence: Home Review of Systems 10-point ROS is otherwise unremarkable Cardiovascular: Chest Pain Physical Examination - Physical Exam General: Alert, In no apparent distress, Oriented x3 HEENT: Atraumatic, PERRLA, Mucous membr. moist/pink, EOMI, Sclerae nonicteric Neck: Supple, 2+ carotid pulse no bruit, No LAD, Without JVD or thyroid abnormality Respiratory: Clear to auscultation bilaterally, Normal air movement Cardiovascular: Regular rate/rhythm, Normal S1 S2 Gastrointestinal: Normal bowel sounds, No tenderness Musculoskeletal: No tenderness Integumentary: No rashes Neurological: Normal speech, Normal strength at 5/5 x4 extr, Normal tone, Normal affect - Studies Laboratory Data (last 24 hrs) 05/07/23 05/07/23 05/07/23 19:14 19:14 19:14 WBC 8.60 Hgb 10.8 L Hct 32.2 L Plt Count 199 PT 11.6 INR 1.05 Sodium 138 Potassium 4.5 BUN 43 H Creatinine 6.94 H Glucose 117 H Magnesium 1.8 Total Bilirubin 0.3 AST 14 L ALT 27 Alkaline Phosphatase 80 Assessment and Plan - Plan Assessment: Chest pain rule out ACS ESRD on HD MWF Hypertension Plan: Chest pain rule out ACS Trend troponin, monitor on telemetry, cardiology consult. Allergic to aspirin, continue atorvastatin, atenolol. ESRD on HD MWF Nephrology consulted, completed dialysis today. Hypertension Amlodipine and atenolol continued. DVT PPX: Heparin subcu Code status: Full Discharge Plan: Home Plan to discharge in: 24 Hours - Advance Directives Does patient have a Living Will: No Does patient have a Durable POA for Healthcare: No - Code Status/Comfort Care Code Status Assessed: Yes (Full code) Critical Care: No Time Spent Managing Pts Care (In Minutes): 55
[2023-05-07] MEDS ORDERED: ATORVASTATIN 20 MG TAB PO SCH (22:39)
[2023-05-07] MEDS ORDERED: atenoloL 25 MG TAB PO SCH (22:39)
[2023-05-07] MEDS ORDERED: ONDANSETRON 4 MG/2 ML VIAL IV PRN (22:39)
[2023-05-07] MEDS: HEPARIN 5000 UNIT/ML 1 ML VIAL SQ SCH (23:07)
[2023-05-07 23:31] VITALS: BMI 28.3
[2023-05-08 05:38] LABS: Absolute Lymphocytes (CBC) 2.4 K/uL (0.7-4.9); Hematocrit 32.2 % (36.0-45.0); Lymphocytes % 30.8 % (15.3-44.8); MCV 99.3 fL (80-100); MPV 8.9 fL (7.6-11.3); Platelets 179 thou/uL (152-406); RBC Red Blood Cell Count 3.24 M/uL (3.86-4.86)
[2023-05-08 05:54] LABS: Potassium 4.4 mEq/L (3.5-5.1); Thyroid Stimulating Hormone 0.941 uIU/mL (0.358-3.740); Troponin High Sensitivity 12.9 pg/mL (<58.9)
[2023-05-08] MEDS ORDERED: AMLODIPINE 10 MG TAB PO SCH (09:00)
[2023-05-08] MEDS: HEPARIN 5000 UNIT/ML 1 ML VIAL SQ SCH (09:55)
[2023-05-08 12:29] VITALS: BP 119/58; TEMP 97.2
--- NOTE | 2023-05-08 13:01 | EKG ---
Test Date: 2023-05-07 Test Time: 19:14:27 Food Quality Technician: DAVID MEASUREMENT RESULTS: Intervals: Rate: 69 CT: 236 QRSD: 74 QT: 408 QTc: 437 Conde: P: 65 CT: 236 QRS: -9 T: 30 INTERPRETIVE STATEMENTS: Sinus rhythm with 1st degree AV block Minimal voltage criteria for LVH, may be normal variant Borderline ECG Compared to ECG 08/19/2022 08:07:48 Left ventricular hypertrophy now present Myocardial infarct finding no longer present Electronically Signed On 05-08-23 13:00:21 CDT by Jevon French
--- NOTE | 2023-05-08 14:19 | P.DS ---
Admission Date: 05/07/23 Discharge Date: 05/08/23 Disposition: ROUTINE DISCHARGE Discharge Condition: GOOD Reason for Admission: Chest pain Consultations: 1. Cardiology 2. Nephrology Hospital Course: DIAGNOSES: # Chest Pain, atypical - resolved # End-Stage Renal Disease on MWF iHD # Likely Anemia of Chronic Kidney Disease # Hypertension HOSPITAL COURSE: Ms. Kevin Chou is a pleasant 78 year old female with a past medical history significant for end-stage renal disease on MWF iHD and hypertension who was admitted to the [facility] on 05/07/2023 for chest pain. She was admitted to the Medicine service. Upon further evaluation, her EKG was without STEMI criteria. Her chest x-ray revealed, "no acute cardiopulmonary process." Her serial troponin was 14.0 -> 15.1 -> 12.9. Over the course of her hospitalization, her chest pain completely resolved. Cardiology was consulted and she was evaluated by Dr. French. Dr. French has cleared her for discharge with an outpatient transthoracic echocardiogram and an nuclear stress test. In regards to her ESRD, Nephrology was consulted and she was evaluated by Dr. Dunbar. He stated that she completed her dialysis session yesterday and, from a Nephrology standpoint, he has cleared her for discharge to continue dialysis on her regular schedule tomorrow. On 05/08/2023, she was seen on rounds and deemed medically stable for discharge. She was discharged with instructions to schedule follow-up appointments with her PCP (Dr. Morfin), with Cardiology (Dr. French), and with Nephrology (Dr. Dunbar). She was given the opportunity to ask questions and reported no further questions. Furthermore, all questions were answered to the best of my ability. A copy of this discharge summary will be sent to the above providers to facilitate continuity of care. Today, I personally spent 25 minutes on her case, of which greater than 50% of the time was spent in patient education, counseling, and coordination of care as described above. Vital Signs/Physical Exam: Temp Pulse Resp BP Pulse Ox 97.2 F 68 16 119/58 L 100 05/08/23 12:00 05/08/23 12:00 05/08/23 12:00 05/08/23 12:00 05/08/23 12:00 General: Alert, In no apparent distress, Oriented x3 HEENT: Atraumatic, Mucous membr. moist/pink, Sclerae nonicteric Neck: JVD not distended Respiratory: Clear to auscultation bilaterally, Normal air movement Cardiovascular: No edema, Regular rate/rhythm, Normal S1 S2, No gallops, No rubs, No murmurs Gastrointestinal: Normal bowel sounds, Soft and benign, Non-distended, No tenderness, No rebound, No guarding Musculoskeletal: No clubbing Integumentary: No rashes Neurological: Normal speech, Normal affect Laboratory Data at Discharge: WBC 7.80 thou/uL (4.3-10.9) 05/08/23 04:50 Hgb 10.7 g/dL (12.0-15.0) L 05/08/23 04:50 Hct 32.2 % (36.0-45.0) L 05/08/23 04:50 Plt Count 179 thou/uL (152-406) 05/08/23 04:50 PT 11.6 SECONDS (9.5-12.5) 05/07/23 19:14 INR 1.05 05/07/23 19:14 Sodium 137 mEq/L (136-145) 05/08/23 04:50 Potassium 4.4 mEq/L (3.5-5.1) 05/08/23 04:50 BUN 52 mg/dL (7-18) H 05/08/23 04:50 Creatinine 8.13 mg/dL (0.55-1.02) H 05/08/23 04:50 Glucose 113 mg/dL (74-106) H 05/08/23 04:50 Magnesium 1.8 mg/dL (1.6-2.4) 05/07/23 19:14 Total Bilirubin 0.3 mg/dL (0.2-1.0) 05/07/23 19:14 AST 14 U/L (15-37) L 05/07/23 19:14 ALT 27 U/L (13-56) 05/07/23 19:14 Alkaline Phosphatase 80 U/L (45-117) 05/07/23 19:14 Triglycerides 167 mg/dL (<150) H 05/08/23 04:50 Cholesterol 215 mg/dL (<200) H 05/08/23 04:50 HDL Cholesterol 62 mg/dL (40-60) H 05/08/23 04:50 Cholesterol/HDL Ratio 3.47 05/08/23 04:50 Home Medications: RX: Amlodipine [Norvasc*] 10 mg PO DAILY 06/26/22 RX: Atorvastatin Calcium [Lipitor*] 20 mg PO BEDTIME #30 tab 06/27/22 RX: Atenolol [Tenormin] 25 mg PO M,W,F 05/07/23 Physician Discharge Instructions: 1. Please call and schedule a follow-up appointment with your PCP (Dr. Morfin) in 3-5 days 2. Please call and schedule a follow-up appointment with Cardiology (Dr. French) in 5-7 days - He will schedule you for an echocardiogram and a cardiac stress test in his office 3. Please call and schedule a follow-up appointment with Nephrology (Dr. Dunbar) in 5-7 days Diet: Renal Activity: Ad nathalie Followup: Ariel Morfin DO [Primary Care Provider] - Pierre Dunbar DO [ACTIVE - CAN ADMIT] - Jevon French MD [ACTIVE - CAN ADMIT] - Time spent managing pt's care (in minutes): 25
[2023-05-08 14:36] VITALS: O2SAT 100
--- NOTE | 2023-05-08 17:14 | CON ---
Date of Consultation: 05/08/2023 Reason For Consultation: Chest pain. History Of Present Illness: A 78-year-old female, history of end-stage renal disease, on hemodialysi s, hypertension, presented to the emergency room with shortness of breath. She also has dyslipidemia . Presented with chest pain, she felt like it is cramps like on the right chest, it was at rest, las nicho for about 10 to 15 minutes and resolved, and she does not have any more chest pain. She has been chest pain free since admission. No symptoms. Past Medical History: Hypertension, end-stage renal disease, on hemodialysis, and dyslipidemia. Medications: Refer to reconciliation sheet for detailed list. Medications were reviewed. Allergies: ASPIRIN, OXYCODONE. Family History: No premature coronary artery disease or cancer. Social History: She does not smoke or drink. Does not use any drugs. Review of Systems: All systems reviewed and they were negative except what mentioned in HPI. Physical Examination: Vital Signs: Reviewed. Head and Neck: Pupils are equal, reactive to light. Intact eye movements. No JVD. No cervical lym phadenopathy. Neck is supple. Thyroid is not enlarged. Lungs: Clear to auscultation bilaterally. No rhonchi, wheezing, or crackles. No accessory muscle u se. Heart: Regular rate and rhythm. No extra sounds. Abdomen: Soft, nontender. Bowel sounds positive. No organomegaly. No masses or hernia. No rigidi ty or rebound. Extremities: No edema, clubbing, or cyanosis. Intact pulses. Skin: No rash. Neurologic: Alert, awake, oriented x3. No acute focal deficits appreciated. Investigations: BUN 52, creatinine 8.1, and cardiac enzymes x3 are negative, and hemoglobin is 10.7. Assessment And Recommendations: 1.Chest pain. It is atypical. Cardiac enzymes are negative. The patient can be released from Card iology standpoint. Follow up as an outpatient for exercise stress test and an echo. 2.Hypertension. Blood pressure is controlled. Continue current management. 3.Dyslipidemia. Continue statin. SR/MODL Voice ID: [id number] Report ID: [id number]
--- NOTE | 2023-05-08 21:05 | P.CNS ---
Date of Consult: 05/08/23 Reason for Consult: ESRD Requesting Physician: Danny Summers Chief Complaint: Chest pain History of Present Illness: 78-year-old female with history of ESRD on HD MWF, hypertension presents emergency department chief complaint of chest pain. She reports when getting up from a seated position to a standing position she developed a cramp-like pain in the right chest wall nonradiating not associated with any shortness of breath, diaphoresis or nausea. The pain lasted for approximate 10 to 15 minutes if this reason she decided to come to the emergency room for evaluation. She was evaluated in the emergency department EKG without STEMI criteria initial high- sensitivity troponin is normal 14.0, BNP elevated 5019 chest x-ray negative for acute findings. ED provider wishes to admit under observation for ACS rule out. She had a stress test during a hospitalization in June 2022 that was negative, has never had a heart catheterization. She also has allergy to aspirin. [id number] 20:40 This 78 yrs old Black Female presents to ER via Wheelchair with complaints of Chest ms3 Pain, Back Pain. 20:40 78-year-old female with past medical history of diabetes, dialysis, hypertension ms3 presents for chest pain that began 45 minutes prior to arrival. Patient states the pain is squeezing and rated a 5/10. Patient denies any alleviating or inciting factors. Allergies aspirin [From Percodan] Adverse Reaction (Verified 05/07/23 23:23) hallucination oxycodone [From Percodan] Adverse Reaction (Verified 05/07/23 23:23) hallucination Home medications list reviewed: Yes Home Medications: Amlodipine [Norvasc*] 10 mg PO DAILY 06/26/22 Atorvastatin Calcium [Lipitor*] 20 mg PO BEDTIME #30 tab 06/27/22 Atenolol [Tenormin] 25 mg PO M,W,F 05/07/23 - Past Medical/Surgical History Diabetic: No -: ESRD (Dr. Dunbar/ Dr. Zarate) -: HTN -: Diastolic CHF -: DM II -: HLD -: Gout -: hysterectomy -: lumpectomy -: cataract surgery Psychosocial/ Personal History: Patient lives at home and is . - Family History Mother Medical History: Hypertension, Kidney disease Father Medical History: Hypertension, Kidney disease - Social History Smoking Status: Unknown if ever smoked Alcohol use: No CD- Drugs: No Caffeine use: Yes Place of Residence: Home Review of Systems 10-point ROS is otherwise unremarkable Cardiovascular: Chest Pain Physical Examination Temp Pulse Resp BP Pulse Ox 97.2 F 68 16 119/58 L 100 05/08/23 12:00 05/08/23 12:00 05/08/23 12:00 05/08/23 12:00 05/08/23 12:00 General: In no apparent distress, Oriented x3, Cooperative HEENT: Atraumatic Neck: Supple Respiratory: Clear to auscultation bilaterally Cardiovascular: No edema, Regular rate/rhythm Gastrointestinal: Soft and benign, Non-distended Musculoskeletal: No clubbing, No contractures Integumentary: No rashes, No cyanosis Neurological: Normal speech Blood work reviewed in the chart Imagings Data: [id number] [facility]24 pm CLINICAL HISTORY: CHEST PAIN COMPARISON: Chest Single View dated 08/20/2022; Chest Single View dated 08/19/2022; Chest Single View dated 06/26/2022; Chest Single View dated 12/05/2021 TECHNIQUE: Portable AP view of the chest. FINDINGS: The lungs are clear. Significant improvement since the prior exam, with mild residual background interstitial thickening. No pneumothorax or effusion. The cardiomediastinal contours are unremarkable. IMPRESSION: No acute cardiopulmonary process. Conclusions/Impression: ESRD on HD MWF -HD TIW HTN with CKD/ CHF -Continue Atenolol Diastolic CHF, chronic -Low sodium diet -HD with UF DM II with CKD -RISS Anemia in CKD -Retacrit prn CKD MBD -Start Ergo Case reviewed with Dr. Summers Hospitalist and ER notes reviewed Thank you kindly for the consultation
[2023-05-09] MEDS ORDERED: atenoloL 25 MG TAB PO SCH (21:00)
== END 2023-05-08 16:45 | disposition home or self-care (01) ==
LOC: ER 18:33 → ERHOLD 20:27 → 4TH 21:57
PROVIDERS: ADMIT Internal Medicine; ATTEND Internal Medicine
DX: R07.9 Chest pain, unspecified (principal); N18.6 End stage renal disease; I50.32 Chronic diastolic (congestive) heart failure; D64.9 Anemia, unspecified; E11.22 Type 2 diabetes mellitus with diabetic chronic kidney disease; I12.0 Hypertensive chronic kidney disease with stage 5 chronic kidney disease or end stage renal disease; Z99.2 Dependence on renal dialysis; Z88.6 Allergy status to analgesic agent; E78.5 Hyperlipidemia, unspecified
CPT/HCPCS: 93005; 85025 ×2; 80048 ×2; 36415; 83735; 85610; 80061; 82947 ×2; 80076; 84443; 84484 ×3; 84439; 83880; 71045; 99285; J1644 ×2; G0378 ×4

== ENCOUNTER 2023-07-21 05:56 | Inpatient (IN) | payer OTHER ==
--- OUTSIDE RECORDS SUMMARY | 2023-07-21 05:59 | XMS REPORT | Continuity of Care Document ---
:1945 Author Organization [facility] t Address [address] [place] [address] Care Team Providers Name Role Phone ALLAN JOLLY Attending Clinician Unavailable ADRIENNE SOTO Attending Clinician Unavailable EVARISTO OSUNA Attending Clinician Unavailable Payers Payer Name Policy Type Policy Number Effective Date Expiration Date Darrick dejesus [id number] 2023 CLASSIC NO PREMIUM 00:00:00 R2T MEDICARE PART A [id number] 2010 \T\ B 00:00:00 Problems Condition Condition Condition Status Onset Resolution Last Treating Co mments Source Name Details Category Date Date Treatment Clinician Date Risk for Risk for Disease Active 2022-08 Kelse y falls falls 0-10 Seybold 00:00: - 00 Externa l Well adult Well adult Disease Active 2022-08 K christiano exam exam 0-10 Seybold 00:00: - 00 Externa l 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 Adele hyperlipid hyperlipid 0-10 Se ybold emia emia 00:00: - 00 Externa l 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 0-09 Se ybold to to 00:00: - conditions conditions 00 Ex terna classified classified l elsewhere elsewhere (multi (multi HCC) HCC) HTN HTN Disease Active Adele (hypertens (hypertens 9-07 Se ybold ion) ion) 00:00: - 00 Externa l GERD GERD Disease Active Adele (gastroeso (gastroeso 05-01 Se ybold phageal phageal 00:00: - reflux reflux 00 Externa disease) disease) l Chronic Chronic Disease Active Adele respirator respirator 05-01 Se ybold y failure y failure 00:00: - with with 00 Externa hypoxia, hypoxia, l on home O2 on home O2 therapy therapy (multi (multi HCC) HCC) 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 Serobert hauler hauler 00:00: - 00 Externa l ESRD (end ESRD (end Disease Active Tye abad stage stage 05-01 Seybold renal renal 00:00: - disease) disease) 00 [employer] Agent a on on l dialysis dialysis (multi (multi HCC) HCC) Allergies, Adverse Reactions, Alerts Allergy Allergy Status Severity Reaction(s) Onset Inactive Treating Comm ents Source Name Type Date Date Clinician OXYCODON DRUG Active High Hallucinates Un tate E 3- ity of HCL-OXYC 00:00: [place] ODONE- 00 [facility] Oxycodon Propensi Active Hallucinatio percoda n Adele e-Aspiri ty to ns 3-23 Seybold n adverse 00:00: - reaction 00 Externa s l Calcium Propensi Active Other Adele Acetylsa ty to 8-29 reaction( Seybo ld licylate adverse 00:00: s): - reaction 00 hallucina Exter na s tion, l Rash Oxycodon Propensi Active Other Adele e ty to 8-29 reaction( Seybold adverse 00:00: s): - reaction 00 hallucina Exter na s tion, l Rash Social History Social Habit Start Date Stop Date Quantity Comments Source Gender identity Adele jones - External Sexual orientation Adele Bahena - External Alcohol intake 2023-06-03 2023-06-03 Lifetime Adele Abad bold 00:00:00 00:00:00 non-drinker - External (finding) History of Social 2023-05-12 2023-05-12 Adele Bahena function 00:00:00 00:00:00 - External Education 2023-05-01 2023-05-01 17 Adele Bahena 00:00:00 00:00:00 - External Tobacco use and 2023-05-01 2023-05-01 Smokeless tobacco Ke albina Seybold exposure 00:00:00 00:00:00 non-user - External Sex [birth year] Adele Back ybold 00:00:00 00:00:00 - External Smoking Status Start Date Stop Date Source Never smoked tobacco Adele Seyb old - External Medications Ordered Filled Start Stop Current Ordering Indication Dosage Frequency Signature Comments Components Source Medication Medication Date Date Medication? Clinician (SIG) Name Name Aspirin 81 2022-08 Yes [id number] 81mg Take 1 Aedle MG oral 0-10 tablet (81 Seybol d Tablet 10:32: mg total) - Delayed 53 by mouth Externa Response daily. l Atorvastati 2022-08 Yes [id number] 10mg Take 1 Adele n Calcium 0-10 tablet (10 Seyb old 10 MG oral 10:32: mg total) - Tablet 53 by mouth Externa nightly. l Colchicine 2022-08 Yes TAKE 1 Kelse y (Colcrys) 0-10 TABLET BY Seybo ld 0.6 MG oral 10:08: MOUTH 4 - Tablet 32 TIMES A Externa DAY l NEEDED FOR GOUT Colchicine 2022-08 Yes TAKE 1 Kelse y (Colcrys) 0-05 TABLET BY Seybo ld 0.6 MG oral 13:22: MOUTH 4 - Tablet 00 TIMES A Externa DAY l NEEDED FOR GOUT Atenolol Yes [id number] 1 tablet Adele MG oral 9-07 by mouth Seybold Tablet 00:00: on FRIDAY, Friday Externa AND FRIDAY l AT BEDTIME . Atenolol Yes [id number] 1 tablet Adele MG oral 9-07 by mouth Seybold Tablet 00:00: on FRIDAY, Friday Externa AND FRIDAY l AT BEDTIME . Atenolol Yes [id number] 1 tablet Adele MG oral 9-07 by mouth Seybold Tablet 00:00: on FRIDAY, Friday Externa AND FRIDAY l AT BEDTIME . Amlodipine Yes 10mg Take 1 Kelse y Besylate 10 7-19 tablet (10 Se ybold MG oral 00:00: mg total) - Tablet 00 by mouth Externa daily. l Amlodipine 2023-0 Yes 10mg Take 1 Kelse y Besylate 10 7-19 tablet (10 Se ybold MG oral 00:00: mg total) - Tablet 00 by mouth Externa daily. l Amlodipine 2022-0 Yes 10mg Take 1 Kelse y Besylate 10 7-19 tablet (10 Se ybold MG oral 00:00: mg total) - Tablet 00 by mouth Externa daily. l Atenolol 25 2022-0 2022- No 25mg Take 1 Tye sey MG oral 7-14 -07 tablet (25 Seybo ld Tablet 00:00: 00:00 mg total) - 00 :00 by mouth Externa three l times a week 1 tablet by mouth on FRIDAY, FRIDAY AND FRIDAY AT BEDTIME . Pantoprazol 2022-0 Yes 40mg Take 1 Sophie ey e Sodium 40 4-24 tablet (40 Se ybold MG oral 00:00: mg total) - Tablet 00 by mouth Externa Delayed daily. l Response Pantoprazol 2022-0 Yes 40mg Take 1 Sophie ey e Sodium 40 4-24 tablet (40 Se ybold MG oral 00:00: mg total) - Tablet 00 by mouth Externa Delayed daily. l Response Pantoprazol 2022-0 Yes 40mg Take 1 Sophie ey e Sodium 40 4-24 tablet (40 Se ybold MG oral 00:00: mg total) - Tablet 00 by mouth Externa Delayed daily. l Response Vital Signs Vital Name Observation Time Observation Value Comments Source Systolic blood 2023-06-03 15:07:00 128 mm[Hg] Adele Trevizoold - pressure External Diastolic blood 2023-06-03 15:07:00 62 mm[Hg] Tyese ganga Backybold - pressure External Heart rate 2023-06-03 15:07:00 72 /min Adele Darrick fadi - External Body temperature 2023-06-03 15:07:00 36.39 [place] Sophie benji Backybold - External Respiratory rate 2023-06-03 15:07:00 18 /min Sophie leblanc Seybold - External Body height 2023-06-03 15:07:00 149.9 cm Adele Darrick fadi - External Body weight 2023-06-03 15:07:00 65.318 kg Adele Darrick fadi - External BMI 2023-06-03 15:07:00 29.08 kg/m2 Adele S eybold - External Oxygen saturation in 2023-06-03 15:07:00 100 /min Adele Seybold - Arterial blood by External Pulse oximetry Systolic blood 2023-05-29 18:15:00 148 mm[Hg] Adele Seybold - pressure External Diastolic blood 2023-05-29 18:15:00 69 mm[Hg] Tyese y Seybold - pressure External Heart rate 2023-05-29 18:15:00 76 /min Adele S eybold - External Body temperature 2023-05-29 18:15:00 36.5 [place] Sophie ey Seybold - External Respiratory rate 2023-05-29 18:15:00 18 /min Sophie ey Seybold - External Body height 2023-05-29 18:15:00 149.9 cm Adele S eybold - External Body weight 2023-05-29 18:15:00 65.318 kg Adele S eybold - External BMI 2023-05-29 18:15:00 29.08 kg/m2 Adele S eybold - External Oxygen saturation in 2023-05-29 18:15:00 100 /min Adele Backybold - Arterial blood by External Pulse oximetry Systolic blood 2023-05-01 15:54:00 99 mm[Hg] Adele Seybold - pressure External Diastolic blood 2023-05-01 15:54:00 54 mm[Hg] Casper y Seybold - pressure External Heart rate 2023-05-01 15:54:00 71 /min Adele S eybold - External Body temperature 2023-05-01 15:54:00 36.11 [place] Sophie ey Seybold - External Respiratory rate 2023-05-01 15:54:00 20 /min Sophie ey Seybold - External Body height 2023-05-01 15:54:00 149.9 cm Adele S eybold - External Body weight 2023-05-01 15:54:00 63.957 kg Adele S eybold - External BMI 2023-05-01 15:54:00 28.48 kg/m2 Adele S eybold - External Oxygen saturation in 2023-05-01 15:54:00 100 /min Adele Seybold - Arterial blood by External Pulse oximetry Procedures Procedure Date / Time Performed Performing Clinician Helen dyer DESHAWN 2023-06-03 15:13:24 Allan Jolly ld - External Encounters Start End Encounter Admission Attending Care Care Encounter Source Date/Time Date/Time Type Type Clinicians Facility Department ID 2023-09-04 2023-09-04 Outpatient ADELE JOLLY [id number] Adele 09:00:00 09:00:00 ALLAN Seybol d 2023-06-03 2023-06-03 Outpatient ADELE JOLLY [id number] Adele 10:00:00 10:00:00 ALLAN Seybol d 2023-05-29 2023-05-29 Outpatient BRITTANY ADRIENNEAUDRA OSORIO [id number] Adele 13:30:00 13:30:00 Seybol d 2023-05-01 2023-05-01 Outpatient ADELE JOLLY [id number] Adele 10:45:00 10:45:00 ALLAN Seybol d 2018-03-12 2018-03-12 Outpatient Tatiana THAO [facility] [id number] [facility] 09:30:00 10:31:36 EVARISTO mcadams [facility] Results Test Description Test Time Test Comments Results Result Comments Source ALICIA 2023-06-03 15:14:01 Test Item Value Reference Range Interpretation Comme nts [facility] left side (test code See_Comment [Automated message] The system = 64920-5G) which generated this result transmitted ref erence range: 1.40 - 0.90 NA. The reference range was not u sed to interpret this result as normal/abnormal. [employer] right side (test See_Comment L E xercise Modality: At Restboth code = 58494-1Y) feet retest ed Normal - 1.40 - 1.00Borderline - 0.99 - 0.90Mild - 0.89 - 0.60Mo derate - 0.59 - 0.30Severe - 0. 29 - 0.00 [Automated mess age] The system which generated this result transmitted ref erence range: 1.40 - 0.90 NA. The reference range was not u sed to interpret this result as normal/abnormal. Lab Interpretation (test code Abnormal = 78983-7) Adele Aguilar
[2023-07-21] MEDS ORDERED: METOCLOPRAMIDE 10 MG/2mL INJ ONE (06:57)
[2023-07-21] MEDS ORDERED: MORPHINE 2 MG/ML SYR ONE (06:58)
[2023-07-21] MEDS ORDERED: ONDANSETRON 4 MG/2 ML VIAL ONE (06:58)
[2023-07-21] MEDS ORDERED: PIPERACIL/TAZO 3.375 GM VIAL IV ONE (06:58)
[2023-07-21] MEDS ORDERED: NA CHLORIDE 0.9% 100 ML ONE (06:58)
[2023-07-21 06:59] LABS: Absolute Lymphocytes (CBC) 2.1 K/uL (0.7-4.9); Lymphocytes % 24.1 % (15.3-44.8); MCV 95.1 fL (80-100); MPV 9.1 fL (7.6-11.3); Platelets 200 thou/uL (152-406); RBC Red Blood Cell Count 3.79 M/uL (3.86-4.86)
[2023-07-21 07:07] LABS: Protime INR 0.99
[2023-07-21 07:30] LABS: Albumin 3.4 g/dL (3.4-5.0); Bilirubin Direct 0.1 mg/dL (0-0.2); Bilirubin Indirect, Calculated 0.3 mg/dL (0.2-0.8); Bilirubin Total 0.4 mg/dL (0.2-1.0); C-Reactive Protein 10.1 mg/L (<3.00); Magnesium 1.5 mg/dL (1.6-2.4); Potassium 5.4 mEq/L (3.5-5.1); Protein, Total 7.6 g/dL (6.4-8.2); Troponin High Sensitivity 22.2 pg/mL (<58.9)
--- NOTE | 2023-07-21 07:47 | RAD REPORT ---
EXAM DESCRIPTION: CT - Abdomen Pelvis Wo Contrast - 07/21/2023 7:37 am CLINICAL HISTORY: Abdominal pain. ABD PAIN COMPARISON: Stone Protocol dated 08/04/2017; Chest Single View dated 07/21/2023 TECHNIQUE: CT imaging of the abdomen and pelvis was performed without contrast. Solid organ, bowel a nd vascular assessment is limited due to lack of IV and oral contrast. All CT scans are performed using dose optimization technique as appropriate and may include automated exposure control or mA/KV adjustment according to patient size. FINDINGS: Moderate bibasilar pulmonary opacities with small bilateral pleural effusion. The liver, spleen, pancreas, adrenal glands are within normal limits for a limited non-contrast exami nation.Both kidneys are significantly atrophic. No bowel obstruction, free air, free fluid or abscess. Moderate sigmoid diverticulosis coli without d iverticulitis. The appendix is normal. Sclerosis of both femoral heads likely represents avascular necrosis. IMPRESSION: Bibasilar lung opacities with small bilateral pleural effusion suggests pneumonia or pul monary edema. Significant atrophy the [place] kidneys. Prominent diverticulosis coli without diverticulitis. Bilateral femoral head AVN pattern. A limited non-contrast examination was performed as detailed.
--- NOTE | 2023-07-21 08:19 | EDPHYS ---
Physician Documentation [facility] Name: Kevin Chou Age: 78 yrs Sex: Female : 1945 Arrival Date: 07/21/2023 Time: 05:56 Bed 2 Private MD: ED Physician Subhash Decker HPI: 07/21 06:03 This 78 yrs old Black Female presents to ER via Unassigned with complaints of Shortness sp4 Of Breath, Abdominal Pain, General Weakness. 06:12 PMH - Historical: Allergies: Aspirin; Percodan; PMHx: diabetes mellitus; DIALYSIS MWF; sp4 Hypertension; kidney disease; PSHx: Left arm fistula;. 06:20 78-year-old female with history of end-stage renal disease on dialysis, missed her sp4 dialysis this morning, presents with pain and nausea vomiting. Patient states she is feeling unwell. . Historical: - Allergies: 06:15 Aspirin; bp 06:15 Percodan; bp - Home Meds: 06:15 amlodipine 10 mg tab 1 tab once daily [Active]; bp - PMHx: 06:15 diabetes mellitus; DIALYSIS MWF; Hypertension; kidney disease; bp - PSHx: 06:15 Left arm fistula; bp - Immunization history:: Adult Immunizations up to date. - Social history:: Smoking status: Patient denies any tobacco usage or history of. - Family history:: not pertinent. ROS: 08:18 Constitutional: Positive generalized weakness positive for nausea and vomiting, sp4 positive abdominal pain 08:18 All other systems are negative, Exam: 08:18 Constitutional: This is a well developed, well nourished patient who is awake, alert, sp4 positive generalized weakness. Ill-appearing nontoxic Head/Face: Normocephalic, atraumatic. Eyes: Pupils equal round and reactive to light, extra-ocular motions intact. Lids and lashes normal. Conjunctiva and sclera are not injected. Cornea within normal limits. Periorbital areas with no swelling, redness, or edema. ENT: Nares patent. No nasal discharge, no septal abnormalities noted. Tympanic membranes are normal and external auditory canals are clear. Oropharynx with no redness, swelling, or masses, exudates, or evidence of obstruction, uvula midline. Mucous membranes moist. Neck: Trachea midline, no thyromegaly or masses palpated, and no cervical lymphadenopathy. Supple, full range of motion without nuchal rigidity, or vertebral point tenderness. Chest/axilla: Normal chest wall appearance and motion. Nontender with no deformity. No lesions are appreciated. Cardiovascular: Regular rate and rhythm with a normal S1 and S2. No gallops, murmurs, or rubs. Normal PMI, no JVD. No pulse deficits. Respiratory: Lungs have equal breath sounds bilaterally, clear to auscultation and percussion. No rales, rhonchi or wheezes noted. No increased work of breathing, no retractions or nasal flaring. Abdomen/GI: Soft, non-tender, with normal bowel sounds. No distension or tympany. No guarding or rebound. No evidence of tenderness throughout. Back: No spinal tenderness. No costovertebral tenderness. Skin: Warm, dry with normal turgor. Normal color with no rashes, no lesions, and no evidence of cellulitis. MS/ Extremity: Pulses equal, no cyanosis. Neurovascular intact. Full, normal range of motion. Neuro: Awake and alert, GCS 15, oriented to person, place, time, and situation. Cranial nerves II-XII grossly intact. Motor strength 5/5 in all extremities. Sensory grossly intact. Psych: Awake, alert, with orientation to person, place and time. Behavior, mood, and affect are within normal limits 08:21 ECG was reviewed by the Attending Physician. EKG reveals sinus rhythm at rate of 86 EKG sp4 time 651 normal EKG otherwise Vital Signs: 06:11 BP 186 / 79; Pulse 89; Resp 24; Temp 97.9; Pulse Ox 93% on 2 lpm NC; bp 06:40 BP 148 / 71; Pulse 82; Resp 18 S; Pulse Ox 96% on R/A; ha1 07:30 Pain 0/10; jl7 10:00 BP 126 / 68; Pulse 85; Resp 17; Temp 98.2; Pulse Ox 96% ; Pain 0/10; jl7 07:30 Pain Scale: Adult jl7 10:00 Pain Scale: Adult jl7 MDM: 06:04 Patient medically screened. sp4 08:20 Differential diagnosis: Anxiety Reaction asthma, Bronchitis CHF exacerbation, Chronic sp4 Obstructive Pulmonary Disease Myocardial Infarction. Data reviewed: vital signs, nurses notes, lab test result(s), EKG, radiologic studies, CT scan, plain films. 07/21 06:03 Order name: Basic Metabolic Panel; Complete Time: 08:09 [facility] 07/21 06:03 Order name: CBC with Diff; Complete Time: 08:09 [facility] 07/21 06:03 Order name: LFT's; Complete Time: 08:09 [facility] 07/21 06:03 Order name: Magnesium; Complete Time: 08:09 [facility] 07/21 06:03 Order name: NT PRO-BNP; Complete Time: 08:09 [facility] 07/21 06:03 Order name: PT-INR; Complete Time: 08:09 [facility] 07/21 06:03 Order name: Troponin HS; Complete Time: 08:09 [facility] 07/21 06:03 Order name: Lipase; Complete Time: 08:09 [facility] 07/21 06:04 Order name: Blood Culture Adult (2) [facility] 07/21 06:04 Order name: CRP; Complete Time: 08:09 [facility] 07/21 06:04 Order name: Urinalysis W/Microscopic [facility] 07/21 06:04 Order name: Lactate w/ 2H reflex if indic.; Complete Time: 08:09 [facility] 07/21 09:47 Order name: Urinalysis w/ reflexes EDMS 07/21 09:47 Order name: Basic Metabolic Panel EDMS 07/21 09:47 Order name: Basic Metabolic Panel EDMS 07/21 09:47 Order name: Basic Metabolic Panel EDMS 07/21 09:47 Order name: Basic Metabolic Panel EDMS 07/21 09:47 Order name: Basic Metabolic Panel EDMS 07/21 09:47 Order name: Basic Metabolic Panel EDMS 07/21 09:47 Order name: CBC with Automated Diff EDMS 07/21 09:47 Order name: CBC with Automated Diff EDMS 07/21 09:47 Order name: CBC with Automated Diff EDMS 07/21 09:47 Order name: CBC with Automated Diff EDMS 07/21 09:47 Order name: CBC with Automated Diff EDMS 07/21 09:47 Order name: CBC with Automated Diff EDMS 07/21 09:47 Order name: Magnesium EDMS 07/21 09:47 Order name: Magnesium EDMS 07/21 09:47 Order name: Magnesium EDMS 07/21 09:47 Order name: Magnesium EDMS 07/21 09:47 Order name: Magnesium EDMS 07/21 09:47 Order name: Magnesium EDAK 07/21 09:47 Order name: Phosphorus EDMS 07/21 09:47 Order name: Phosphorus EDMS 07/21 09:47 Order name: Phosphorus EDMS 07/21 09:47 Order name: Phosphorus EDAK 07/21 09:47 Order name: Phosphorus EDMS 07/21 09:47 Order name: Phosphorus EDMS 07/21 09:47 Order name: Troponin High Sensitivity [facility] 07/21 09:47 Order name: Troponin High Sensitivity [facility] 07/21 09:47 Order name: Troponin High Sensitivity [facility] 07/21 09:49 Order name: ABG Arterial Blood Gas [facility] 07/21 06:03 Order name: XRAY Chest (1 view) [facility] 07/21 06:19 Order name: CT Abd/Pelvis - Without Contrast; Complete Time: 08:09 4 07/21 06:03 Order name: EKG; Complete Time: 06:04 4 07/21 09:47 Order name: CONS Physician Consult [facility] 07/21 06:03 Order name: Cardiac monitoring; Complete Time: 06:53 sp4 07/21 06:03 Order name: EKG - Nurse/Tech; Complete Time: 06:53 sp4 07/21 06:03 Order name: IV Saline Lock; Complete Time: 06:39 sp4 07/21 06:03 Order name: Labs collected and sent; Complete Time: 06:39 sp4 07/21 06:03 Order name: O2 Per Protocol; Complete Time: 06:10 sp4 07/21 06:03 Order name: O2 Sat Monitoring; Complete Time: 06:10 sp4 EC:21 Rate is 86 beats/min. Rhythm is regular, Normal Sinus Rhythm. QRS [place] is Normal. [place] sp4 interval is prolonged. QRS interval is normal. QT interval is normal. No Q waves. T waves are Normal. No ST changes noted. Clinical impression: Normal ECG. Interpreted by me. Reviewed by me. Administered Medications: 06:53 Drug: Ondansetron IVP 4 mg IVP once; over 2 minutes Route: IVP; Site: right forearm; bp 10:01 Follow up: Response: No adverse reaction [facility] 06:53 Drug: morphine IVP or IV 2 mg IVP once over 4 mins Route: IVP; Infused Over: 4 mins; bp Site: right forearm; 07:30 Follow up: Pain 0/10 Adult; Response: No adverse reaction; Pain is decreased jl7 06:53 Drug: metoCLOPramide IVP 10 mg IVP once; over 1 to 2 minutes Route: IVP; Site: right bp forearm; 10:01 Follow up: Response: No adverse reaction jl7 06:53 Drug: Piperacillin-Tazobactam IVPB 3.375 grams IVPB once over 60 mins; (mix in NS 100 bp mL) Route: IVPB; Infused Over: 60 mins; Site: right forearm; 07:53 Follow up: Response: No adverse reaction; IV Status: Completed infusion; IV Intake: jl7 100ml 08:53 Drug: Rocephin - Rocephin (cefTRIAXone) IVPB 1 grams IVPB once over 30 mins; (mix in 50 jl7 mL NS) Route: IVPB; Infused Over: 30 mins; Site: right wrist; 09:23 Follow up: Response: No adverse reaction; IV Status: Completed infusion; IV Intake: [id number] 09:25 Drug: Zithromax IVPB 500 mg IVPB once over 1 hrs; mix in 250 mL NS Route: IVPB; Infused jl7 Over: 1 hrs; Site: right wrist; Disposition Summary: 07/21/23 08:18 Hospitalization Ordered Notes: Hospitalization Status: Inpatient Admission sp4 Provider: Santo Kirk [facility] sp[facility] Condition: Stable sp4 Problem: new sp4 Symptoms: have improved sp4 Bed/Room Type: Standard sp4 Room Assignment: 209(07/21/23 09:56) bd Diagnosis - Other pneumonia, unspecified organism sp4 - End-stage renal disease on hemodialysis, acute hyperkalemia, bilateral pneumonia, sp4 nausea and vomiting Forms: - Medication Reconciliation Form sp4 - SBAR form sp4 - Leadership Thank You Letter sp4 Signatures: Dispatcher [employer] Annie Griffiths Jahala RN RN jl7 Сергей Gaspar RN RN Subhash Moscoso MD MD sp4 Corrections: (The following items were deleted from the chart) 09:56 08:18 sp4 bd
--- NOTE | 2023-07-21 08:19 | ER ---
Nurse's Notes [facility] Name: Kevin Chou Age: 78 yrs Sex: Female : 1945 Arrival Date: 07/21/2023 Time: 05:56 Bed 2 Private MD: Diagnosis: Other pneumonia, unspecified organism;End-stage renal disease on hemodialysis, acute hyperkalemia, bilateral pneumonia, nausea and vomiting Presentation: 07/21 06:11 Chief complaint: Patient's son or daughter states: SOB AND ABD PAIN TODAY, MWF ESRD PT. bp Coronavirus screen: At this time, the client does not indicate any symptoms associated with coronavirus-19. Ebola Screen: No symptoms or risks identified at this time. Initial Sepsis Screen: Does the patient meet any 2 criteria? RR > 20 per min. No. Patient's initial sepsis screen is negative. Does the patient have a suspected source of infection? No. Patient's initial sepsis screen is negative. Risk Assessment: Do you want to hurt yourself or someone else? Patient reports no desire to harm self or others. Onset of symptoms is unknown. 06:11 Method Of Arrival: Wheelchair bp 06:11 Acuity: GRETA 3 bp Triage Assessment: 06:15 General: Appears distressed, Behavior is cooperative, appropriate for age. Pain: bp Complains of pain in abdomen. EENT: No deficits noted. Respiratory: Reports shortness of breath at rest Onset: The symptoms/episode began/occurred. Historical: - Allergies: 06:15 Aspirin; bp 06:15 Percodan; bp - Home Meds: 06:15 amlodipine 10 mg tab 1 tab once daily [Active]; bp - PMHx: 06:15 diabetes mellitus; DIALYSIS MWF; Hypertension; kidney disease; bp - PSHx: 06:15 Left arm fistula; bp - Immunization history:: Adult Immunizations up to date. - Social history:: Smoking status: Patient denies any tobacco usage or history of. - Family history:: not pertinent. Screenin:56 [facility] ED Fall Risk Assessment (Adult) History of falling in the last 3 months, ha1 including since admission Confusion or Disorientation No (0 pts) Intoxicated or Sedated No (0 pts) Impaired Gait Yes (1 pt) Mobility Assist Device Used Yes (1 pt) Altered Elimination No (0 pt) Score/Fall Risk Level 3 or more points = High Risk Oriented to surroundings, Maintained a safe environment, Educated pt \T\ family on fall prevention, incl call for assistance when getting out of bed, Hourly rounding (assess needs \T\ fall precautionary measures) done. Abuse screen: Denies threats or abuse. Denies injuries from another. Nutritional screening: No deficits noted. Tuberculosis screening: No symptoms or risk factors identified. Assessment: 06:00 General: Appears uncomfortable, Behavior is calm, cooperative. Pain: Complains of pain ha1 in abdomen Pain does not radiate. Pain currently is 8 out of 10 on a pain scale. Quality of pain is described as crampy, Pain began suddenly. Neuro: Level of Consciousness is awake, alert, obeys commands. Cardiovascular: Capillary refill Patient's skin is warm and dry. Rhythm is sinus rhythm with 1st degree heart block. Respiratory: Airway is patent Respiratory effort is even, unlabored, Respiratory pattern is regular, symmetrical. Respiratory: Reports shortness of breath. GI: Abdomen is round Bowel sounds present X 4 quads. Reports lower abdominal pain, nausea. Derm: Skin is dry, Skin is normal. 07:15 Reassessment: Patient appears in no apparent distress at this time. Patient and/or jl7 family updated on plan of care and expected duration. Pain level reassessed. Patient is alert, oriented x 3, equal unlabored respirations, skin warm/dry/pink. reports pain resolved 0/10 at this time. Patient states symptoms have improved. 08:15 Reassessment: Patient appears in no apparent distress at this time. No changes from 7 previously documented assessment. Patient and/or family updated on plan of care and expected duration. Pain level reassessed. Patient is alert, oriented x 3, equal unlabored respirations, skin warm/dry/pink. 09:15 Reassessment: Patient appears in no apparent distress at this time. No changes from jl7 previously documented assessment. Patient and/or family updated on plan of care and expected duration. Pain level reassessed. Patient is alert, oriented x 3, equal unlabored respirations, skin warm/dry/pink. 10:17 Reassessment: Patient appears in no apparent distress at this time. No changes from 7 previously documented assessment. Patient and/or family updated on plan of care and expected duration. Pain level reassessed. Patient is alert, oriented x 3, equal unlabored respirations, skin warm/dry/pink. Vital Signs: 06:11 BP 186 / 79; Pulse 89; Resp 24; Temp 97.9; Pulse Ox 93% on 2 lpm NC; bp 06:40 BP 148 / 71; Pulse 82; Resp 18 S; Pulse Ox 96% on R/A; ha1 07:30 Pain 0/10; jl7 10:00 BP 126 / 68; Pulse 85; Resp 17; Temp 98.2; Pulse Ox 96% ; Pain 0/10; jl7 07:30 Pain Scale: Adult jl7 10:00 Pain Scale: Adult jl7 ED Course: 06:00 Patient arrived in ED. gm2 06:00 Patient has correct armband on for positive identification. Placed in gown. Bed in low ha1 position. Call light in reach. Side rails up X 1. Adult w/ patient. 06:02 Сергей Gaspar RN is Primary Nurse. bp 06:03 Subhash Decker MD is Attending Physician. sp4 06:14 Triage completed. bp 06:15 XRAY Chest (1 view) In Process Unspecified. EDMS 06:15 Arm band placed on. bp 06:30 Inserted saline lock: 22 gauge in right forearm, using aseptic technique. Blood ha1 collected. 07:38 CT Abd/Pelvis - Without Contrast In Process Unspecified. EDMS 07:45 Provided Education on: Use of call [place]. jl7 07:45 No provider procedures requiring assistance completed. Patient admitted, IV remains in jl7 place. intact, No redness/swelling at site. 08:15 Santo Kirk MD is Hospitalizing Provider. sp4 Administered Medications: 06:53 Drug: Ondansetron IVP 4 mg IVP once; over 2 minutes Route: IVP; Site: right forearm; bp 10:01 Follow up: Response: No adverse reaction jl7 06:53 Drug: morphine IVP or IV 2 mg IVP once over 4 mins Route: IVP; Infused Over: 4 mins; bp Site: right forearm; 07:30 Follow up: Pain 0/10 Adult; Response: No adverse reaction; Pain is decreased jl7 06:53 Drug: metoCLOPramide IVP 10 mg IVP once; over 1 to 2 minutes Route: IVP; Site: right bp forearm; 10:01 Follow up: Response: No adverse reaction jl7 06:53 Drug: Piperacillin-Tazobactam IVPB 3.375 grams IVPB once over 60 mins; (mix in NS 100 bp mL) Route: IVPB; Infused Over: 60 mins; Site: right forearm; 07:53 Follow up: Response: No adverse reaction; IV Status: Completed infusion; IV Intake: jl7 100ml 08:53 Drug: Rocephin - Rocephin (cefTRIAXone) IVPB 1 grams IVPB once over 30 mins; (mix in 50 jl7 mL NS) Route: IVPB; Infused Over: 30 mins; Site: right wrist; 09:23 Follow up: Response: No adverse reaction; IV Status: Completed infusion; IV Intake: [id number] 09:25 Drug: Zithromax IVPB 500 mg IVPB once over 1 hrs; mix in 250 mL NS Route: IVPB; Infused jl7 Over: 1 hrs; Site: right wrist; Medication: 06:57 VIS not applicable for this client. ha1 Intake: 07:53 IV: 100ml; Total: 100ml. jl7 09:23 IV: 50ml; Total: 150ml. jl7 Outcome: 08:18 Decision to Hospitalize by Provider. sp4 11:20 Patient left the ED. iw Signatures: Dispatcher [employer] EDJennifer Zuleta RN RN iw Leal, Jahala, RN RN jl7 Сергей Gaspar RN RN bp Ayala, Heidy, RN RN ha1 Subhash Decker MD MD sp4 Josette Aden 2
[2023-07-21] MEDS ORDERED: NA CHLORIDE 0.9% 50 ML ONE (08:48)
[2023-07-21] MEDS ORDERED: NA CHLORIDE 0.9% 250 ML ONE (08:48)
[2023-07-21] MEDS ORDERED: CEFTRIAXONE 1000 MG/VIAL ONE (08:48)
[2023-07-21] MEDS ORDERED: AZITHROMYCIN 500 MG INJ IVPB ONE (08:48)
[2023-07-21 10:09] LABS: Arterial Blood Carboxyhemoglob 0.6 % (0-1.5); Blood Gas Oxyhemoglobin 31.5 % (94-97); Blood O2 Saturation 32.3 % (92-98.5)
[2023-07-21] MEDS: ONDANSETRON 4 MG/2 ML VIAL IV ONE ×2 (10:27→13:41)
[2023-07-21 12:01] LABS: Potassium 5.9 mEq/L (3.5-5.1)
--- NOTE | 2023-07-21 13:11 | RAD REPORT ---
EXAM DESCRIPTION: XR CHEST 1 VIEW CLINICAL HISTORY: CONGESTION COMPARISON: None. TECHNIQUE: XR CHEST 1 VIEW 07/21/2023 6:03 AM CORE COMPOSER FEEDER FINDINGS: The heart is mildly enlarged. There is extensive airspace disease throughout the mid and l ower lungs bilaterally. There are probable pleural effusions. There is no pneumothorax. There are no acute osseous findings. IMPRESSION: Extensive bilateral pneumonia. Electronically signed by: Wai Max MD 07/21/2023 06:51 AM C[employer] COMPOSER FEEDER Due to temporary technical issues with the PACS/Fluency reporting system, reports are being signed by the in house radiologist without review as a courtesy to ensure prompt reporting. The interpreting r adiologist is fully responsible for the content of the report.
[2023-07-21] MEDS ORDERED: NA CHLORIDE 0.9% 1,000 ML IV PRN (16:44)
[2023-07-21] MEDS ORDERED: MANNITOL 25% 12.5 GM/50 ML VIAL IV PRN (16:44)
[2023-07-21] MEDS ORDERED: ALBUMIN HUMAN 25% 50 ML IV SCH (17:00)
--- NOTE | 2023-07-21 18:19 | P.HP ---
Certification for Inpatient Patient admitted to: Inpatient With expected LOS: <2 Midnights Patient will require the following post-hospital care: None Practitioner: I am a practitioner with admitting privileges, knowledge of patient current condition, hospital course, and medical plan of care. Services: Services provided to patient in accordance with Admission requirements found in Title 42 Section 412.3 of the Code of Federal Regulations <Althea Almeida - Last Filed: 07/21/23 18:33> Patient History Date of Service: 07/21/23 History of Present Illness: <Althea Almeida - Last Filed: 07/21/23 18:33> Date of Service: 07/21/23 History of Present Illness: Kevin Chou is a 78 yrs old Black Female with past medical history of Hx diabetes mellitus; kdiney disease (dialysis MWF); Hypertension presents to ER with shortness of breath. She reports shortness of breath worse over the last day. She reports assoicated generalized pain, nausea and vomiting, abdominal pain. symptoms worse with po intake. She reports missing dialysis today. She reports feeling unwell. She denies dizziness, syncope, slurred speech, falls, fever, cough, or diarrhea. Plan to admit for Fluid volume overload, ESRD on HD, elevated BNP. hyperkalmemia,acute hypoxic respiratory failure secondary to pneumonia Lab evaluation No leukocytosis, hyperkalemia 5.9, BNP 15,208, trop normal 10.10, CXR IMPRESSION: Extensive bilateral pneumonia, CT abd/pelvisIMPRESSION: Bibasilar lung opacities with small bilateral pleural effusion suggests pneumonia or pulmonary edema.Significant atrophy the [place] kidneys.Prominent diverticulosis coli without diverticulitis. Bilateral femoral head AVN pattern.EKG Rate is 86 beats/min. Rhythm is regular, Normal Sinus Rhythm. QRS [place] is Normal. [place] interval is prolonged. QRS interval is normal. QT interval is normal. No Q waves. Twaves are Normal. No ST changes noted. Clinical impression: Normal ECG. Kevin will be admitted to hospitalist service for further evaluation and treatment. - Past Medical/Surgical History Has patient received pneumonia vaccine in the past: Yes Diabetic: No -: ESRD (Dr. Dunbar/ Dr. Zarate) -: HTN -: Diastolic CHF -: DM II -: HLD -: Gout -: hysterectomy -: lumpectomy -: cataract surgery Psychosocial/ Personal History: Patient lives at home and is . - Family History Mother -: Hypertension, Kidney disease Father -: Hypertension, Kidney disease - Social History Smoking Status: Never smoker Alcohol use: No CD- Drugs: No Caffeine use: Yes <Fozia Davila - Last Filed: 07/21/23 19:08> Allergies aspirin [From Percodan] Adverse Reaction (Verified 05/07/23 23:23) hallucination oxycodone [From Percodan] Adverse Reaction (Verified 05/07/23 23:23) hallucination Home Medications: Amlodipine [Norvasc*] 10 mg PO DAILY 06/26/22 Atorvastatin Calcium [Lipitor*] 20 mg PO BEDTIME #30 tab 06/27/22 Atenolol [Tenormin] 25 mg PO M,W,F 05/07/23 Review of Systems General: Weakness, Malaise Eyes: Unremarkable ENT: Unremarkable Respiratory: Cough, Shortness of Breath Cardiovascular: Unremarkable Gastrointestinal: Nausea, Vomiting Genitourinary: Unremarkable Musculoskeletal: Unremarkable Integumentary: Unremarkable Neurological: Other (dizziness) Lymphatics: Unremarkable <Fozia Davila - Last Filed: 07/21/23 19:08> Physical Examination - Studies Laboratory Data (last 24 hrs) 07/21/23 07/21/23 07/21/23 06:35 06:35 06:35 WBC 8.70 Hgb 11.7 L Hct 36.0 Plt Count 200 PT 10.9 INR 0.99 Sodium 133 L Potassium 5.4 H BUN 97 H Creatinine 13.20 H Glucose 123 H Magnesium 1.5 L Total Bilirubin 0.4 AST 22 ALT 32 Alkaline Phosphatase 76 Lipase 90 H <Althea Almeida - Last Filed: 07/21/23 18:33> - Vital Signs Temperature: 97.0 F Blood Pressure: 165/79 Pulse: 80 Respirations: 17 Pulse Ox (%): 95 - Physical Exam General: Alert, In no apparent distress, Oriented x3 HEENT: Atraumatic, Normocephalic, PERRLA Neck: Supple, 2+ carotid pulse no bruit, JVD not distended Respiratory: Clear to auscultation bilaterally, Expiratory wheezes Cardiovascular: No edema, Normal pulses, Regular rate/rhythm, Normal S1 S2 Capillary refill: <2 Seconds Gastrointestinal: Normal bowel sounds, Hypoactive, Soft and benign Musculoskeletal: No clubbing, No swelling, No contractures, No erythema Integumentary: No rashes, No breakdown, No significant lesion, No tenderness/swelling Neurological: Normal speech, Normal strength at 5/5 x4 extr, Normal tone - Studies Laboratory Data (last 24 hrs) 07/21/23 07/21/23 07/21/23 06:35 06:35 06:35 WBC 8.70 Hgb 11.7 L Hct 36.0 Plt Count 200 PT 10.9 INR 0.99 Sodium 133 L Potassium 5.4 H BUN 97 H Creatinine 13.20 H Glucose 123 H Magnesium 1.5 L Total Bilirubin 0.4 AST 22 ALT 32 Alkaline Phosphatase 76 Lipase 90 H <Fozia Davila - Last Filed: 07/21/23 19:08> Assessment and Plan Discharge Plan: Home Plan to discharge in: 48 Hours - Code Status/Comfort Care Code Status: Full Code Physician Review: Patient Assessed, Agree with Above Assessment and Plan Critical Care: No Time Spent Managing Pts Care (In Minutes): 55 <Althea Almeida - Last Filed: 07/21/23 18:33> - Plan Assessment and plan ESRD on HD MWF Fluid volume overload Hyperkalemia K 5.4 BNP 15,208 Bicarb 18, VBG PCO2 42.1, HCO3 19.6-repeat BMP in the afternoon Consulted nephrology-dialysis tonight 07/21 acute hypoxic respiratory failure secondary to Bilateral pneumonia Chest x-ray showing extensive bilateral pneumonia Rocephin/azithromycin/Zosyngiven in the ED continue zosyn, renally dosed per pharmacy blood cultures pending HTN restart home medications when appropriate DVT ppx: heparin Full code LOS 2-3 days - Advance Directives Does patient have a Living Will: No Does patient have a Durable POA for Healthcare: No <Fozia Davila - Last Filed: 07/21/23 19:08>
--- NOTE | 2023-07-21 20:49 | P.CNS ---
Date of Consult: 07/21/23 Reason for Consult: ESRD Requesting Physician: Santo Kirk Chief Complaint: Dyspnea History of Present Illness: Kevin Chou is a 78 yrs old Black Female with past medical history of Hx diabetes mellitus; kdiney disease (dialysis MWF); Hypertension presents to ER with shortness of breath. She reports shortness of breath worse over the last day. She reports assoicated generalized pain, nausea and vomiting, abdominal pain. symptoms worse with po intake. She reports missing dialysis today. She reports feeling unwell. She denies dizziness, syncope, slurred speech, falls, fever, cough, or diarrhea. Plan to admit for Fluid volume overload, ESRD on HD, elevated BNP. hyperkalmemia,acute hypoxic respiratory failure secondary to pneumonia Lab evaluation No leukocytosis, hyperkalemia 5.9, BNP 15,208, trop normal 10.10, CXR IMPRESSION: Extensive bilateral pneumonia, CT abd/pelvisIMPRESSION: Bibasilar lung opacities with small bilateral pleural effusion suggests pneumonia or pulmonary edema.Significant atrophy the [place] kidneys.Prominent diverticulosis coli without diverticulitis. Bilateral femoral head AVN pattern.EKG Rate is 86 beats/min. Rhythm is regular, Normal Sinus Rhythm. QRS [place] is Normal. [place] interval is prolonged. QRS interval is normal. QT interval is normal. No Q waves. Twaves are Normal. No ST changes noted. Clinical impression: Normal ECG. [id number] 06:03 This 78 yrs old Black Female presents to ER via Unassigned with complaints of Shortness sp4 Of Breath, Abdominal Pain, General Weakness. 06:12 PMH - Historical: Allergies: Aspirin; Percodan; PMHx: diabetes mellitus; DIALYSIS MWF; sp4 Hypertension; kidney disease; PSHx: Left arm fistula;. 06:20 78-year-old female with history of end-stage renal disease on dialysis, missed her sp4 dialysis this morning, presents with pain and nausea vomiting. Patient states she is feeling unwell. Allergies aspirin [From Percodan] Adverse Reaction (Verified 05/07/23 23:23) hallucination oxycodone [From Percodan] Adverse Reaction (Verified 05/07/23 23:23) hallucination Home medications list reviewed: Yes Home Medications: Amlodipine [Norvasc*] 10 mg PO DAILY 06/26/22 Atorvastatin Calcium [Lipitor*] 20 mg PO BEDTIME #30 tab 06/27/22 Atenolol [Tenormin] 25 mg PO M,W,F 05/07/23 - Past Medical/Surgical History Diabetic: No -: ESRD (Dr. Dunbar/ Dr. Zarate) -: HTN -: Diastolic CHF -: DM II -: HLD -: Gout -: hysterectomy -: lumpectomy -: cataract surgery Psychosocial/ Personal History: Patient lives at home and is . - Family History Mother Medical History: Hypertension, Kidney disease Father Medical History: Hypertension, Kidney disease - Social History Smoking Status: Unknown if ever smoked Alcohol use: No CD- Drugs: No Caffeine use: Yes Review of Systems 10-point ROS is otherwise unremarkable General: Weakness, Malaise Respiratory: SOB with Excertion Physical Examination Temp Pulse Resp BP Pulse Ox 97.0 F 80 17 165/79 H 95 07/21/23 19:10 07/21/23 19:10 07/21/23 19:10 07/21/23 19:10 07/21/23 19:10 General: In no apparent distress, Oriented x3, Cooperative HEENT: Atraumatic Neck: Supple Respiratory: Diminished Cardiovascular: Regular rate/rhythm Gastrointestinal: Non-distended Musculoskeletal: No clubbing, No contractures Integumentary: No rashes, No cyanosis Neurological: Normal speech Laboratory Data (last 24 hrs) 07/21/23 07/21/23 07/21/23 06:35 06:35 06:35 WBC 8.70 Hgb 11.7 L Hct 36.0 Plt Count 200 PT 10.9 INR 0.99 Sodium 133 L Potassium 5.4 H BUN 97 H Creatinine 13.20 H Glucose 123 H Magnesium 1.5 L Total Bilirubin 0.4 AST 22 ALT 32 Alkaline Phosphatase 76 Lipase 90 H Imagings Data: [id number] EXAM DESCRIPTION: CT - Abdomen Pelvis Wo Contrast - 07/21/2023 7:37 am CLINICAL HISTORY: Abdominal pain. ABD PAIN COMPARISON: Stone Protocol dated 08/04/2017; Chest Single View dated 07/21/2023 TECHNIQUE: CT imaging of the abdomen and pelvis was performed without contrast. Solid organ, bowel and vascular assessment is limited due to lack of IV and oral contrast. All CT scans are performed using dose optimization technique as appropriate and may include automated exposure control or mA/KV adjustment according to patient size. FINDINGS: Moderate bibasilar pulmonary opacities with small bilateral pleural effusion. The liver, spleen, pancreas, adrenal glands are within normal limits for a limited non-contrast examination.Both kidneys are significantly atrophic. No bowel obstruction, free air, free fluid or abscess. Moderate sigmoid diverticulosis coli without diverticulitis. The appendix is normal. Sclerosis of both femoral heads likely represents avascular necrosis. IMPRESSION: Bibasilar lung opacities with small bilateral pleural effusion suggests pneumonia or pulmonary edema. Significant atrophy the [place] kidneys. Prominent diverticulosis coli without diverticulitis. Bilateral femoral head AVN pattern. A limited non-contrast examination was performed as detailed. [id number] EXAM DESCRIPTION: XR CHEST 1 VIEW CLINICAL HISTORY: CONGESTION COMPARISON: None. TECHNIQUE: XR CHEST 1 VIEW 07/21/2023 6:03 AM SYSTEM SAFETY ENGINEER FINDINGS: The heart is mildly enlarged. There is extensive airspace disease throughout the mid and lower lungs bilaterally. There are probable pleural effusions. There is no pneumothorax. There are no acute osseous findings. IMPRESSION: Extensive bilateral pneumonia. Conclusions/Impression: ESRD on HD -Acute HD today -Seen and examined at the start of HD Hyponatremia Chronic Acidosis -HD TIW HTN with CKD/ CHF -Restart Atenolol 25mg qhs MWF Diastolic CHF, A/C -Daily weight -Low sodium diet -HD with UF Anemia in CKD -Retacrit prn CKD MBD -Start Ergo Case reviewed with hospitalist team Thank you kindly for the consultation
[2023-07-21] MEDS: PIPER TAZO 3.375 GM in NA CHLORIDE 0.9% 100 ML IV SCH ×2 (21:00→21:36)
[2023-07-21 21:14] LABS: Hepatitis B Surface Ab - Quant > 1000.00 mIU/mL (<8.0); Hepatitis B surface AG Interp. Nonreactive (Nonreactive)
[2023-07-22 03:19] LABS: Absolute Lymphocytes (CBC) 1.7 K/uL (0.7-4.9); Hematocrit 34.8 % (36.0-45.0); MCV 94.5 fL (80-100); MPV 9.4 fL (7.6-11.3); Platelets 194 thou/uL (152-406); RBC Red Blood Cell Count 3.69 M/uL (3.86-4.86)
[2023-07-22 03:34] LABS: Magnesium 1.9 mg/dL (1.6-2.4); Phosphorus 4.6 mg/dL (2.5-4.9); Potassium 4.4 mEq/L (3.5-5.1)
[2023-07-22] MEDS: PIPER TAZO 3.375 GM in NA CHLORIDE 0.9% 100 ML IV SCH ×2 (08:38→21:14)
[2023-07-22] MEDS ORDERED: Levofloxacin 750mg IV 750 MG/150 ML BAG IV ONE (20:00)
--- NOTE | 2023-07-22 21:04 | P.PN ---
Date of Service: 07/22/23 Vital Signs Temp Pulse Resp BP Pulse Ox 97.6 F 82 20 145/55 H 92 07/22/23 16:00 07/22/23 16:00 07/22/23 16:00 07/22/23 16:00 07/22/23 16:00 Medications Atenolol (Atenolol 25 Mg Tab) 25 mg PO M,W,F [facility] Coenzyme Q10 (Coenzyme Q10- 200 Mg Cap) 200 mg PO DAILY [facility] Docusate Sodium (Docusate Na 100 Mg Cap) 100 mg PO BID [facility] Ergocalciferol (Drisdol (Vitamin D=Ergocalciferol) 42462 Unit Cap) 50,000 unit PO Q7D@0900 [facility] Heparin Sodium (Porcine) (Heparin 1,000 Unit/Ml Vial) 3,000 unit IV EVERY HD PRN PRN Reason: Prevent HD System Clotting Last Admin: 07/21/23 17:27 Dose: 3,000 unit Albumin Human (Albumin 25%) 50 mls @ 100 mls/hr IV EVERY HD [facility] Piperacillin Sod/Tazobactam (Sod 3.375 gm/ Sodium Chloride) 100 mls @ 25 mls/hr IV Q12HR [facility]; Protocol Last Admin: 07/22/23 08:38 Dose: 100 mls Levofloxacin/Dextrose (Levaquin 750 Mg/150 Ml Ivpb (Premix)) 750 mg in 150 mls @ 100 mls/hr IV 1X ONE; Protocol Stop: 07/22/23 21:29 Last Admin: 07/22/23 20:33 Dose: 150 mls Levofloxacin/Dextrose (Levaquin 500 Mg/100 Ml Ivpb) 500 mg in 100 mls @ 100 ml s/hr IV Q48H [facility] Mannitol (Mannitol 25% 12.5 Gm/50 Ml Vial) 12.5 gm IV EVERY HD PRN PRN Reason: PRN FOR BP SUPPORT AT HD Last Admin: 07/21/23 17:30 Dose: 12.5 gm Vitamin B Complex/Vit C/Folic Acid (Multivitamins,Therapeut 1 Tab) 1 tab PO DAILY [facility] Microbiology Results 07/21/23 06:35 Blood - Blood Aerobic Blood Culture - Preliminary No growth in 24 hours. 07/21/23 06:35 Blood - Blood Anaerobic Blood Culture - Final Assessment/ Plan: Nephrology No dyspnea No chest pain Feeling better No acute events overnight Vitals, medications, blood work and imaging reviewed in the chart. General: In no apparent distress, Oriented x3, Cooperative HEENT: Atraumatic Neck: Supple Respiratory: Diminished Cardiovascular: Regular rate/rhythm Gastrointestinal: Non-distended Musculoskeletal: No clubbing, No contractures Integumentary: No rashes, No cyanosis Neurological: Normal speech Laboratory Data (last 24 hrs) 07/21/23 07/21/23 07/21/23 06:35 06:35 06:35 WBC 8.70 Hgb 11.7 L Hct 36.0 Plt Count 200 PT 10.9 INR 0.99 Sodium 133 L Potassium 5.4 H BUN 97 H Creatinine 13.20 H Glucose 123 H Magnesium 1.5 L Total Bilirubin 0.4 AST 22 ALT 32 Alkaline Phosphatase 76 Lipase 90 H Imagings Data: EXAM DESCRIPTION: CT - Abdomen Pelvis Wo Contrast - 07/21/2023 7:37 am CLINICAL HISTORY: Abdominal pain. ABD PAIN COMPARISON: Stone Protocol dated 08/04/2017; Chest Single View dated 07/21/2023 TECHNIQUE: CT imaging of the abdomen and pelvis was performed without contrast. Solid organ, bowel and vascular assessment is limited due to lack of IV and oral contrast. All CT scans are performed using dose optimization technique as appropriate and may include automated exposure control or mA/KV adjustment according to patient size. FINDINGS: Moderate bibasilar pulmonary opacities with small bilateral pleural effusion. The liver, spleen, pancreas, adrenal glands are within normal limits for a limited non-contrast examination.Both kidneys are significantly atrophic. No bowel obstruction, free air, free fluid or abscess. Moderate sigmoid diverticulosis coli without diverticulitis. The appendix is normal. Sclerosis of both femoral heads likely represents avascular necrosis. IMPRESSION: Bibasilar lung opacities with small bilateral pleural effusion suggests pneumonia or pulmonary edema. Significant atrophy the [place] kidneys. Prominent diverticulosis coli without diverticulitis. Bilateral femoral head AVN pattern. A limited non-contrast examination was performed as detailed. EXAM DESCRIPTION: XR CHEST 1 VIEW CLINICAL HISTORY: CONGESTION COMPARISON: None. TECHNIQUE: XR CHEST 1 VIEW 07/21/2023 6:03 AM TECHNICAL SPEC FINDINGS: The heart is mildly enlarged. There is extensive airspace disease throughout the mid and lower lungs bilaterally. There are probable pleural effusions. There is no pneumothorax. There are no acute osseous findings. IMPRESSION: Extensive bilateral pneumonia. Conclusions/Impression: ESRD on HD -HD TIW Hyponatremia Chronic Acidosis -HD TIW HTN with CKD/ CHF -Continue Atenolol 25mg qhs MWF Diastolic CHF, A/C -Daily weight -Low sodium diet -HD with UF Anemia in CKD -Retacrit prn CKD MBD -Continue Ergo Case reviewed with hospitalist team
[2023-07-22] MEDS: DOCUSATE NA 100 MG CAP PO SCH (21:26)
[2023-07-23 04:34] VITALS: BMI 26.1
[2023-07-23 06:55] LABS: Absolute Lymphocytes (CBC) 1.5 K/uL (0.7-4.9); Hematocrit 31.9 % (36.0-45.0); Lymphocytes % 16.8 % (15.3-44.8); MCV 95.1 fL (80-100); MPV 9.1 fL (7.6-11.3); Platelets 182 thou/uL (152-406); RBC Red Blood Cell Count 3.36 M/uL (3.86-4.86)
[2023-07-23 07:17] LABS: Phosphorus 7.2 mg/dL (2.5-4.9); Potassium 4.9 mEq/L (3.5-5.1)
[2023-07-23] MEDS: PIPER TAZO 3.375 GM in NA CHLORIDE 0.9% 100 ML IV SCH (08:32)
[2023-07-23] MEDS: DOCUSATE NA 100 MG CAP PO SCH (08:32)
[2023-07-23] MEDS ORDERED: COENZYME Q10- 200 MG CAP PO SCH (09:00)
[2023-07-23] MEDS ORDERED: MULTIVITAMINS,THERAPEUT 1 TAB PO SCH (09:00)
[2023-07-23 11:03] VITALS: O2SAT 98
--- NOTE | 2023-07-23 16:04 | RAD REPORT ---
EXAM DESCRIPTION: RADChest Single View07/23/2023 3:51 pm CLINICAL HISTORY: Follow-up bilateral pneumonia/pulmonary edema COMPARISON: Chest Single View dated 07/21/2023; Chest Single View dated 05/07/2023; Chest Single View dated 08/20/2022; Chest Single View dated 08/19/2022 TECHNIQUE: Portable AP view of the chest. FINDINGS: Improving bilateral airspace opacities, with some residual opacities in the right upper lo be and left basal lung. No pneumothorax or effusion. The cardiomediastinal contours are unremarkable . IMPRESSION: Improving bilateral airspace opacities as above.
[2023-07-23 16:26] VITALS: BP 128/55; TEMP 96.5
--- NOTE | 2023-07-23 18:28 | P.DS ---
Admission Date: 07/22/23 Discharge Date: 07/23/23 Reason for Admission: Dyspnea - Problems (1) Bilateral pneumonia Current Visit: Yes Status: Acute (2) Diabetes mellitus type 2 in nonobese Current Visit: No Status: Acute (3) End-stage renal disease on hemodialysis Current Visit: No Status: Acute (4) Pulmonary edema Current Visit: No Status: Acute Qualifiers: Chronicity: acute Qualified Code(s): J81.0 - Acute pulmonary edema (5) HTN (hypertension) Onset Date: 01/17/17 Current Visit: No Status: Chronic Brief History of Present Illness: Kevin Chou is a 78 yrs old Female with past medical history of Hx diabetes mellitus; kdiney disease (dialysis MWF); Hypertension presented to ER with shortness of breath. She reported assoicated generalized pain, nausea and vomiting, abdominal pain. symptoms worse with po intake. She reported missing dialysis. She denied dizziness, syncope, slurred speech, falls, fever, cough, or diarrhea. Lab evaluation: No leukocytosis, hyperkalemia 5.9, BNP 15,208, trop normal 10.10. CXR IMPRESSION: Extensive bilateral pneumonia. CT abd/pelvisIMPRESSION: Bibasilar lung opacities with small bilateral pleural effusion suggests pneumonia or pulmonary edema.Significant atrophy the [place] kidneys.Prominent diverticulosis coli without diverticulitis. Bilateral femoral head AVN pattern. EKG Rate is 86 beats/min. Rhythm is regular, Normal Sinus Rhythm. QRS [place] is Normal. [place] interval is prolonged. QRS interval is normal. QT interval is normal. No Q waves. Twaves are Normal. No ST changes noted. Clinical impression: Normal ECG. Patient admitted for further management. Hospital Course: Patient was admitted to the medical floor and started on IV antibiotics for pneumonia. Nephrology consulted, patient underwent hemodialysis. Hyperkalemia was corrected. Patient nausea and vomiting resolved. She tolerated diet without vomiting. She was initially requiring about 4 L of oxygen by nasal cannula. Patient pneumonia improved and oxygen weaned down to baseline. Repeat ches x-ray showed significant improvement in the bilateral infiltrates. Patient is ambulatory, has been afebrile with stable vitals. She is deemed stable for discharge. Vital Signs/Physical Exam: Temp Pulse Resp BP Pulse Ox 96.5 F L 76 18 128/55 L 93 07/23/23 16:00 07/23/23 16:00 07/23/23 16:00 07/23/23 16:00 07/23/23 16:00 General: Alert, In no apparent distress HEENT: Mucous membr. moist/pink Neck: Supple, JVD not distended Respiratory: Crackles/rales (Mild bibasilar crackles.) Cardiovascular: No edema, Regular rate/rhythm, Normal S1 S2 Gastrointestinal: Normal bowel sounds, Soft and benign, Non-distended, No tenderness Musculoskeletal: No swelling Integumentary: No rashes, No cyanosis Neurological: Normal speech, Normal strength at 5/5 x4 extr Laboratory Data at Discharge: WBC 8.70 thou/uL (4.3-10.9) 07/23/23 06:34 Hgb 10.5 g/dL (12.0-15.0) L 07/23/23 06:34 Hct 31.9 % (36.0-45.0) L 07/23/23 06:34 Plt Count 182 thou/uL (152-406) 07/23/23 06:34 PT 10.9 SECONDS (9.5-12.5) 07/21/23 06:35 INR 0.99 07/21/23 06:35 Sodium 135 mEq/L (136-145) L 07/23/23 06:34 Potassium 4.9 mEq/L (3.5-5.1) 07/23/23 06:34 BUN 73 mg/dL (7-18) H 07/23/23 06:34 Creatinine 11.70 mg/dL (0.55-1.02) H 07/23/23 06:34 Glucose 123 mg/dL (74-106) H 07/23/23 06:34 Phosphorus 7.2 mg/dL (2.5-4.9) H 07/23/23 06:34 Magnesium 2.0 mg/dL (1.6-2.4) 07/23/23 06:34 Total Bilirubin 0.4 mg/dL (0.2-1.0) 07/21/23 06:35 AST 22 U/L (15-37) 07/21/23 06:35 ALT 32 U/L (13-56) 07/21/23 06:35 Alkaline Phosphatase 76 U/L (45-117) 07/21/23 06:35 Lipase 90 U/L (13-75) H 07/21/23 06:35 Home Medications: Amlodipine [Norvasc*] 10 mg PO DAILY 06/26/22 Atorvastatin Calcium [Lipitor*] 20 mg PO BEDTIME #30 tab 06/27/22 Atenolol [Tenormin] 25 mg PO M,W,F 05/07/23 Docusate [Colace Cap*] 100 mg PO BID #60 cap 07/23/23 Ubidecarenone [Coenzyme Q10*] 200 mg PO DAILY #30 cap 07/23/23 Vitamin D [Drisdol*] 50,000 unit PO Q7D@0900 #4 cap 07/23/23 levoFLOXacin [Levaquin] 500 mg PO Q48H #4 tab 07/23/23 New Medications: Ubidecarenone [Coenzyme Q10*] 200 mg PO DAILY #30 cap Docusate [Colace Cap*] 100 mg PO BID #60 cap Vitamin D [Drisdol*] 50,000 unit PO Q7D@0900 #4 cap levoFLOXacin [Levaquin] 500 mg PO Q48H #4 tab Diet: Renal Activity: Ad nathalie Followup: Ariel Morfin DO [Primary Care Provider] - Time spent managing pt's care (in minutes): 34
--- NOTE | 2023-07-23 18:35 | P.PN ---
Subjective Date of Service: 07/22/23 Chief Complaint: Dyspnea Patient states she is feeling better. She is tolerating diet. No recorded fever. She states her shortness of breath has improved. Currently on 4 L oxygen by nasal cannula. Physical Examination - Vital Signs Temperature: 96.5 F Blood Pressure: 128/55 Pulse: 76 Respirations: 18 Pulse Ox (%): 93 - Physical Exam General: Alert, In no apparent distress, Oriented x3 HEENT: Mucous membr. moist/pink Neck: Supple, JVD not distended Respiratory: Normal air movement, Other (Bibasilar crackles) Cardiovascular: No edema, Regular rate/rhythm, Normal S1 S2 Gastrointestinal: Normal bowel sounds, Soft and benign, Non-distended, No tenderness Musculoskeletal: No swelling Integumentary: No rashes, No cyanosis Neurological: Normal speech, Normal strength at 5/5 x4 extr Assessment And Plan - Current Problems (Diagnosis) (1) Bilateral pneumonia Current Visit: Yes Status: Acute (2) Diabetes mellitus type 2 in nonobese Current Visit: No Status: Acute (3) End-stage renal disease on hemodialysis Current Visit: No Status: Acute (4) Pulmonary edema Current Visit: No Status: Acute Qualifiers: Chronicity: acute Qualified Code(s): J81.0 - Acute pulmonary edema (5) HTN (hypertension) Onset Date: 01/17/17 Current Visit: No Status: Chronic - Plan IV antibiotics-Levaquin. Wean oxygen as tolerated. Nausea and vomiting resolved. Diet as tolerated. Nephrology seen patient Patient is undergoing routine hemodialysis. Insulin sliding scale for glucose management. Continue other home medications. Physician Review: Patient Assessed, Agree with Above Assessment and Plan
--- NOTE | 2023-07-23 19:51 | P.PN ---
Date of Service: 07/23/23 Vital Signs Temp Pulse Resp BP Pulse Ox 96.5 F L 76 18 128/55 L 93 07/23/23 18:35 07/23/23 18:35 07/23/23 18:35 07/23/23 18:35 07/23/23 18:35 Medications Atenolol (Atenolol 25 Mg Tab) 25 mg PO M,W,F [facility] Last Admin: 07/22/23 21:27 Dose: 25 mg Coenzyme Q10 (Coenzyme Q10- 200 Mg Cap) 200 mg PO DAILY [facility] Last Admin: 07/23/23 08:32 Dose: 200 mg Docusate Sodium (Docusate Na 100 Mg Cap) 100 mg PO BID [facility] Last Admin: 07/23/23 08:32 Dose: Not Given Ergocalciferol (Drisdol (Vitamin D=Ergocalciferol) 58992 Unit Cap) 50,000 unit PO Q7D@0900 [facility] Heparin Sodium (Porcine) (Heparin 1,000 Unit/Ml Vial) 3,000 unit IV EVERY HD PRN PRN Reason: Prevent HD System Clotting Last Admin: 07/23/23 11:27 Dose: 3,000 unit Albumin Human (Albumin 25%) 50 mls @ 100 mls/hr IV EVERY HD [facility] Levofloxacin/Dextrose (Levaquin 500 Mg/100 Ml Ivpb) 500 mg in 100 mls @ 100 mls/hr IV Q48H [facility] Mannitol (Mannitol 25% 12.5 Gm/50 Ml Vial) 12.5 gm IV EVERY HD PRN PRN Reason: PRN FOR BP SUPPORT AT HD Last Admin: 07/21/23 17:30 Dose: 12.5 gm Vitamin B Complex/Vit C/Folic Acid (Multivitamins,Therapeut 1 Tab) 1 tab PO DAILY [facility] Last Admin: 07/23/23 08:31 Dose: 1 tab Microbiology Results 07/21/23 16:09 Blood - Blood Aerobic Blood Culture - Preliminary No growth in 24 hours. 07/21/23 16:09 Blood - Blood Anaerobic Blood Culture - Preliminary No growth in 24 hours. 07/21/23 06:35 Blood - Blood Aerobic Blood Culture - Preliminary No growth in 24 hours. 07/21/23 06:35 Blood - Blood Anaerobic Blood Culture - Final Assessment/ Plan: Nephrology No dyspnea No chest pain Feeling better +Appetite No acute events overnight Vitals, medications, blood work and imaging reviewed in the chart. General: In no apparent distress, Oriented x3, Cooperative HEENT: Atraumatic Neck: Supple Respiratory: Diminished Cardiovascular: Regular rate/rhythm Gastrointestinal: Non-distended Musculoskeletal: No clubbing, No contractures Integumentary: No rashes, No cyanosis Neurological: Normal speech Laboratory Data (last 24 hrs) 07/21/23 07/21/23 07/21/23 06:35 06:35 06:35 WBC 8.70 Hgb 11.7 L Hct 36.0 Plt Count 200 PT 10.9 INR 0.99 Sodium 133 L Potassium 5.4 H BUN 97 H Creatinine 13.20 H Glucose 123 H Magnesium 1.5 L Total Bilirubin 0.4 AST 22 ALT 32 Alkaline Phosphatase 76 Lipase 90 H Imagings Data: EXAM DESCRIPTION: CT - Abdomen Pelvis Wo Contrast - 07/21/2023 7:37 am CLINICAL HISTORY: Abdominal pain. ABD PAIN COMPARISON: Stone Protocol dated 08/04/2017; Chest Single View dated 07/21/2023 TECHNIQUE: CT imaging of the abdomen and pelvis was performed without contrast. Solid organ, bowel and vascular assessment is limited due to lack of IV and oral contrast. All CT scans are performed using dose optimization technique as appropriate and may include automated exposure control or mA/KV adjustment according to patient size. FINDINGS: Moderate bibasilar pulmonary opacities with small bilateral pleural effusion. The liver, spleen, pancreas, adrenal glands are within normal limits for a limited non-contrast examination.Both kidneys are significantly atrophic. No bowel obstruction, free air, free fluid or abscess. Moderate sigmoid diverticulosis coli without diverticulitis. The appendix is normal. Sclerosis of both femoral heads likely represents avascular necrosis. IMPRESSION: Bibasilar lung opacities with small bilateral pleural effusion suggests pneumonia or pulmonary edema. Significant atrophy the [place] kidneys. Prominent diverticulosis coli without diverticulitis. Bilateral femoral head AVN pattern. A limited non-contrast examination was performed as detailed. EXAM DESCRIPTION: XR CHEST 1 VIEW CLINICAL HISTORY: CONGESTION COMPARISON: None. TECHNIQUE: XR CHEST 1 VIEW 07/21/2023 6:03 AM REGISTRY NURSE FINDINGS: The heart is mildly enlarged. There is extensive airspace disease throughout the mid and lower lungs bilaterally. There are probable pleural effusions. There is no pneumothorax. There are no acute osseous findings. IMPRESSION: Extensive bilateral pneumonia. Conclusions/Impression: ESRD on HD -HD TIW -Acute HD today Hyponatremia Chronic Acidosis -HD TIW HTN with CKD/ CHF -Continue Atenolol 25mg qhs MWF Diastolic CHF, A/C -Daily weight -Low sodium diet -HD with UF Anemia in CKD -Retacrit prn CKD MBD -Continue Ergo Asthenia -PT ordered Case reviewed with hospitalist team including Dr. Shore
[2023-07-23] MEDS ORDERED: atenoloL 25 MG TAB PO SCH (21:00)
--- NOTE | 2023-07-24 15:29 | EKG ---
Test Date: 2023-07-21 Test Time: 06:51:11 Medical Education Manager: DEANDRA MEASUREMENT RESULTS: Intervals: Rate: 86 TX: 244 QRSD: 70 QT: 380 QTc: 454 [place]: P: 67 TX: 244 QRS: 17 T: 67 INTERPRETIVE STATEMENTS: Sinus rhythm with 1st degree AV block Otherwise normal ECG Compared to ECG 07/21/2023 06:48:19 No significant changes Electronically Signed On 07-24-23 15:16:30 DATABASE ADMINISTRATOR by Jevon French
--- NOTE | 2023-07-24 15:29 | EKG ---
Test Date: 2023-07-21 Test Time: 06:48:19 Sound Editor: DEANDRA MEASUREMENT RESULTS: Intervals: Rate: 86 [place]: 240 QRSD: 64 QT: 382 QTc: 457 [place]: P: 66 [place]: 240 QRS: 19 T: 65 INTERPRETIVE STATEMENTS: Sinus rhythm with 1st degree AV block Otherwise normal ECG Compared to ECG 05/07/2023 19:14:27 Left ventricular hypertrophy no longer present Electronically Signed On 07-24-23 15:16:32 WIRE ROLLER by Jevon French
[2023-07-24] MEDS ORDERED: Levofloxacin500mg IV 500 MG/100 ML BAG IV SCH (20:00)
[2023-07-29] MEDS ORDERED: DRISDOL (VITAMIN D=ERGOCALCIFEROL) 50000 UNIT CAP PO SCH (09:00)
== END 2023-07-23 19:55 | disposition home health service (06) | DRG 193 ==
LOC: ER 05:56 → ERHOLD 09:49 → 2ND 10:29 → OBSVTOIN 07-22 18:19
PROVIDERS: ADMIT Hospitalist; ATTEND Internal Medicine
PROC: 5A1D70Z Performance of Urinary Filtration, Intermittent, Less than 6 Hours Per Day (ICD-10-PCS; principal; 2023-07-21)
DX: J18.9 Pneumonia, unspecified organism (principal); I50.33 Acute on chronic diastolic (congestive) heart failure; J96.01 Acute respiratory failure with hypoxia; N18.6 End stage renal disease; I13.2 Hypertensive heart and chronic kidney disease with heart failure and with stage 5 chronic kidney disease, or end stage renal disease; E87.1 Hypo-osmolality and hyponatremia; E87.20 Acidosis, unspecified; E11.22 Type 2 diabetes mellitus with diabetic chronic kidney disease; D63.1 Anemia in chronic kidney disease; M10.9 Gout, unspecified; E87.5 Hyperkalemia; Z88.6 Allergy status to analgesic agent; Z99.2 Dependence on renal dialysis; Z88.5 Allergy status to narcotic agent; Z63.5 Disruption of family by separation and divorce; Z91.158 Patient's noncompliance with renal dialysis for other reason; Z79.899 Other long term (current) drug therapy; Z90.710 Acquired absence of both cervix and uterus
CPT/HCPCS: 36415; 36600; 71045; 74176; 80048; 80076; 82805; 82947; 83605; 83690; 83735; 83880; 84100; 84484; 85025; 85610; 86140; 86706; 87040; 87340; 90935; 93005; 99284; G0378; J0696; J1644; J2150; J2270; J2405; J2543; J2765; J7050

== ENCOUNTER 2024-03-24 19:22 | Emergency (ER) | payer OTHER ==
--- NOTE | 2024-03-24 20:58 | RAD REPORT ---
EXAM DESCRIPTION: CT - Abdomen Pelvis Wo Contrast - 03/24/2024 8:36 pm CLINICAL HISTORY: Abdominal pain. ABD PAIN COMPARISON: <Comparisons> TECHNIQUE: CT imaging of the abdomen and pelvis was performed without contrast. Solid organ, bowel a nd vascular assessment is limited due to lack of IV and oral contrast. All CT scans are performed using dose optimization technique as appropriate and may include automated exposure control or mA/KV adjustment according to patient size. FINDINGS: The lower lung yates are clear. The liver, spleen, pancreas, adrenal glands are within normal limits for a limited non-contrast exami nation.Atrophy of both kidneys with small cysts present. No bowel obstruction, free air, free fluid or abscess. Prominent stool is present throughout the colo n. Diverticulosis coli affects the sigmoid colon without diverticulitis. The appendix is normal. Mild lumbar degenerative changes. IMPRESSION: Diverticulosis coli affects the sigmoid colon without diverticulitis. Prominent stool is present throughout the colon. A limited non-contrast examination was performed as detailed.
[2024-03-24 21:21] LABS: Absolute Basophils 0.1 K/uL (0-0.5); Absolute Eosinophils 0.1 K/uL (0-0.5); Absolute Lymphocytes (CBC) 2.6 K/uL (0.7-4.9); Absolute Neutrophil 6.2 K/uL (1.8-8.0); Basophils % 0.6 % (0-1.3); Eosinophils % 0.9 % (0-4.4); Hematocrit 41.3 % (36.0-45.0); Hemoglobin 13.5 g/dL (12.0-15.0); Lymphocytes % 26.3 % (15.3-44.8); MCH 31.3 pg (27.0-35.0); MCHC 32.7 g/dL (32.0-36.0); MCV 95.8 fL (80-100); MPV 8.3 fL (7.6-11.3); Monocytes % 9.7 % (3.3-12.3); Neutrophils % 62.5 % (41.7-73.7); Nucleated Red Blood Cells % 0.1 % (0-0); Platelets 240 thou/uL (152-406); RBC Red Blood Cell Count 4.31 M/uL (3.86-4.86); Red Cell Distribution Width 18.9 % (12.1-15.2)
[2024-03-24] MEDS ORDERED: MAGNES/ALUMIN/SIMET 30ML UCUP ONE (21:27)
[2024-03-24] MEDS ORDERED: FAMOTIDINE 20 MG/2 ML VIAL IV ONE (21:27)
[2024-03-24] MEDS ORDERED: LIDOCAINE VISCOUS 2% 10ML ORAL SOLN ONE (21:27)
[2024-03-24 21:41] LABS: Albumin 4.4 g/dL (3.4-5.0); Albumin/Globulin Ratio 0.9 (1.1-1.8); Anion Gap 12.9 mEq/L (5.0-15.0); Bilirubin Total 0.5 mg/dL (0.2-1.0); Potassium 4.9 mEq/L (3.5-5.1); Protein, Total 9.4 g/dL (6.4-8.2)
--- NOTE | 2024-03-24 21:47 | EDPHYS ---
Physician Documentation [facility] Name: Kevin Chou Age: 78 yrs Sex: Female : 1945 Arrival Date: 03/24/2024 Time: 19:22 Bed 14 Private MD: Ariel Morfin ED Physician Akin Kearney HPI: 03/24 21:01 This 78 yrs old Black Female presents to ER via Wheelchair with complaints of Abd Pain ec2 > 50 y/o. 21:01 Patient arrives today for evaluation of generalized abdominal pain. Patient reports she ec2 has general abdominal pain that she has had for quite a bit of time and she has had outpatient workup including GI complaints undergo endoscopy and colonoscopy. No issues with vomiting, no diarrhea. Patient reports decreased p.o. intake. Patient states that she is dialysis dependent and underwent dialysis today. Completed her full course and has no other sequela of volume. Historical: - Allergies: 19:59 Aspirin; vc1 19:59 Percodan; vc1 - PMHx: 19:59 diabetes mellitus; DIALYSIS MWF; Hypertension; kidney disease; vc1 - PSHx: 19:59 Left arm fistula; vc1 - Infectious Disease History:: Denies. - Social history:: Smoking status: Patient denies any tobacco usage or history of. ROS: 21:01 Constitutional: as per hpi ec2 Exam: 21:01 Constitutional: GEN: NAD Head: atraumatic Eyes: EOMI Ears: External ears are ec2 normal. CV: regular rate LUNGS: no respiratory distress ABD: non-distended, soft, nontender, no guarding, not rigid. SKIN: no evidence of rashes MSK: no evidence of trauma NEURO: moves all extremities equally Vital Signs: 19:56 BP 172 / 96; Pulse 75; Resp 20; Temp 97.8; Pulse Ox 98% ; Weight 60.78 kg; Height 4 ft. vc1 11 in. ; Pain 10/10; 21:57 BP 155 / 72; Pulse 74; Resp 16; Pulse Ox 100% on R/A; mb9 19:56 Body Mass Index 27.06 (60.78 kg, 149.86 cm) vc1 19:56 Pain Scale: Adult vc1 MDM: 20:02 Patient medically screened. ec2 21:01 Data reviewed: vital signs. ED course: Patient arrives today for generalized abdominal ec2 pain. Examination remarkable for well-appearing nontoxic in which was otherwise in no acute distress with reassuring examination. Will obtain lab work, CT imaging and treat the patient symptoms. Differential includes gastritis, enteritis, doubt pancreatitis, doubt ureteral stone.. 21:11 ED course: CTAP shows diverticulosis w/o diverticulitis, constipation noted. . ec2 21:45 ED course: CBC reassuring. Metabolic profile shows expected renal disease as patient is ec2 dialysis dependent. Electrolytes are appropriate. Lipase is minimally elevated, no CT imaging to indicate this. Will discharge home, presentation consistent with diverticulosis, constipation, gastritis.. 03/24 20:12 Order name: CBC with Diff; Complete Time: 21:45 ec2 03/24 20:12 Order name: CMP; Complete Time: 21:45 ec2 03/24 20:12 Order name: Lipase; Complete Time: 21:45 ec2 03/24 20:12 Order name: CT Abd/Pelvis - Without Contrast; Complete Time: 21:10 ec2 03/24 20:12 Order name: IV Saline Lock; Complete Time: 21:05 ec2 03/24 20:12 Order name: Labs collected and sent; Complete Time: 21:05 ec2 Administered Medications: 21:32 Drug: Famotidine IVP 20 mg IVP once; dilute with 10 mL 0.9% NaCl; give over 2 minutes mb9 Route: IVP; Site: right antecubital; 21:50 Follow up: Response: No adverse reaction mb9 21:32 Drug: Alum-Mag Hydroxide-Simeth PO Suspension (200 mg-200 mg-20 mg/5 mL) 30 ml PO once mb9 Route: PO; 21:50 Follow up: Response: No adverse reaction mb9 21:32 Drug: Viscous Lidocaine Mucous Membrane Liquid (4 %) 10 ml Mucous Membrane once Route: mb9 Mucous Membrane; 21:50 Follow up: Response: No adverse reaction mb9 21:50 Drug: Lactulose PO 10 grams 15 ml PO once Volume: 15 ml; Route: PO; mb9 21:57 Follow up: Response: No adverse reaction mb9 Disposition Summary: 03/24/24 21:46 Discharge Ordered Notes: Location: Home ec2 Condition: Stable ec2 Diagnosis - Constipation, unspecified ec2 - Diverticulosis of large intestine without perforation or abscess without bleeding ec2 - Abdominal pain, Generalized ec2 Followup: ec2 - With: Private Physician - When: - Reason: Re-evaluation by your physician Discharge Instructions: - Discharge Summary Sheet ec2 - Constipation, Adult ec2 Forms: - Medication Reconciliation Form ec2 - Antibiotic Education ec2 - Prescription Opioid Use ec2 - Patient Portal Instructions ec2 - Leadership Thank You Letter ec2 Prescriptions: - Lactulose 10 gram/15 mL Oral Solution - take 30 milliliters ORAL route once daily; 300 milliliter; Refills: 0, Product ec2 Selection Permitted Signatures: Dispatcher [employer] EDAZ Zulema Ovalles RN RN vc1 Blilie Sanchez RN RN mb9 Akin Kearney MD MD ec2 Corrections: (The following items were deleted from the chart) 20:13 20:13 Urinalysis W/Microscopic+U.LAB.BRZ ordered. EDAZ EDAZ
--- NOTE | 2024-03-24 21:47 | ER ---
Nurse's Notes [facility] Name: Kevin Chou Age: 78 yrs Sex: Female : 1945 Arrival Date: 03/24/2024 Time: 19:22 Bed 14 Private MD: Ariel Morfin Diagnosis: Constipation, unspecified;Diverticulosis of large intestine without perforation or abscess without bleeding;Abdominal pain, Generalized Presentation: 03/24 19:56 Chief complaint: Patient states: stomach aches. Coronavirus screen: Client denies vc1 travel out of the [place] in the last 14 days. At this time, the client does not indicate any symptoms associated with coronavirus-19. Ebola Screen: Patient negative for fever greater than or equal to 101.5 degrees Fahrenheit, and additional compatible Ebola Virus Disease symptoms Patient denies exposure to infectious person. Patient denies travel to an Ebola-affected area in the 21 days before illness onset. No symptoms or risks identified at this time. Initial Sepsis Screen: Does the patient meet any 2 criteria? No. Patient's initial sepsis screen is negative. Does the patient have a suspected source of infection? No. Patient's initial sepsis screen is negative. Risk Assessment: Do you want to hurt yourself or someone else? Patient reports no desire to harm self or others. Note dialysis patient states has stomach pain a lot today is worse. Onset of symptoms is unknown. 19:56 Method Of Arrival: Wheelchair vc1 19:56 Acuity: GRETA 3 vc1 Historical: - Allergies: 19:59 Aspirin; vc1 19:59 Percodan; vc1 - PMHx: 19:59 diabetes mellitus; DIALYSIS MWF; Hypertension; kidney disease; vc1 - PSHx: 19:59 Left arm fistula; vc1 - Infectious Disease History:: Denies. - Social history:: Smoking status: Patient denies any tobacco usage or history of. Screenin:04 [facility] ED Fall Risk Assessment (Adult) History of falling in the last 3 months, mb9 including since admission No falls in past 3 months (0 pts) Confusion or Disorientation No (0 pts) Intoxicated or Sedated No (0 pts) Impaired Gait No (0 pts) Mobility Assist Device Used No (0 pt) Altered Elimination No (0 pt) Score/Fall Risk Level 0 - 2 = Low Risk Oriented to surroundings, Maintained a safe environment, Educated pt \T\ family on fall prevention, incl call for assistance when getting out of bed. Abuse screen: Denies threats or abuse. Nutritional screening: No deficits noted. Tuberculosis screening: No symptoms or risk factors identified. Assessment: 21:03 General: Appears in no apparent distress. Behavior is calm, cooperative. Pain: mb9 Complains of pain in abdomen. Pain: Pain does not radiate. Pain currently is 7 out of 10 on a pain scale. Quality of pain is described as aching, crampy, Pain began gradually, Is intermittent. Neuro: Bo Agitation-Sedation Scale (RASS): 0 - Alert and Calm Level of Consciousness is awake, alert, obeys commands, Oriented to person, place, time, situation, Appropriate for age. Cardiovascular: Patient's skin is warm and dry. Respiratory: Airway is patent Respiratory effort is even, unlabored, Respiratory pattern is regular, symmetrical. GI: Abdomen is flat, non-distended, Bowel sounds present X 4 quads. Abd is soft Abdomen is tender to palpation X 4 quads. : No signs and/or symptoms were reported regarding the genitourinary system. EENT: No signs and/or symptoms were reported regarding the EENT system. Derm: Skin is pink, warm \T\ dry. Musculoskeletal: Range of motion: intact in all extremities. Vital Signs: 19:56 BP 172 / 96; Pulse 75; Resp 20; Temp 97.8; Pulse Ox 98% ; Weight 60.78 kg; Height 4 ft. vc1 11 in. ; Pain 10/10; 21:57 BP 155 / 72; Pulse 74; Resp 16; Pulse Ox 100% on R/A; mb9 19:56 Body Mass Index 27.06 (60.78 kg, 149.86 cm) vc1 19:56 Pain Scale: Adult vc1 ED Course: 19:25 Patient arrived in ED. rg4 19:26 Ariel Morfin DO is Private Physician. rg4 19:59 Triage completed. vc1 19:59 Arm band placed on left wrist. vc1 20:01 Akin Kearney MD is Attending Physician. ec2 20:37 CT Abd/Pelvis - Without Contrast In Process Unspecified. EDMS 20:45 Billie Sanchez RN is Primary Nurse. mb9 21:03 Initial lab(s) drawn, by me, sent to lab. Inserted saline lock: 24 gauge in right mb9 antecubital area, using aseptic technique. Blood collected. Flushed with 10 mL NS. 21:05 Placed in gown. Bed in low position. Call light in reach. Side rails up X 1. mb9 21:06 No provider procedures requiring assistance completed. mb9 21:58 IV discontinued, intact, bleeding controlled, No redness/swelling at site. Pressure mb9 dressing applied. Administered Medications: 21:32 Drug: Famotidine IVP 20 mg IVP once; dilute with 10 mL 0.9% NaCl; give over 2 minutes mb9 Route: IVP; Site: right antecubital; 21:50 Follow up: Response: No adverse reaction mb9 21:32 Drug: Alum-Mag Hydroxide-Simeth PO Suspension (200 mg-200 mg-20 mg/5 mL) 30 ml PO once mb9 Route: PO; 21:50 Follow up: Response: No adverse reaction mb9 21:32 Drug: Viscous Lidocaine Mucous Membrane Liquid (4 %) 10 ml Mucous Membrane once Route: mb9 Mucous Membrane; 21:50 Follow up: Response: No adverse reaction mb9 21:50 Drug: Lactulose PO 10 grams 15 ml PO once Volume: 15 ml; Route: PO; mb9 21:57 Follow up: Response: No adverse reaction mb9 Medication: 21:05 VIS not applicable for this client. mb9 Outcome: 21:46 Discharge ordered by . ec2 21:58 Discharged to home via wheelchair, with family, mb9 21:58 Condition: stable 21:58 Discharge instructions given to patient, family, Instructed on discharge instructions, follow up and referral plans. Demonstrated understanding of instructions, follow-up care, 21:58 Patient left the ED. mb9 Signatures: Dispatcher [employer] Génesis Renee rg4 Zulema Ovalles RN RN 1 Billie Sanchez RN RN mb9 Akin Kearney MD MD ec2
[2024-03-24] MEDS ORDERED: LACTULOSE 20 GM/30 ML UCUP ONE (21:51)
[2024-03-25 05:07] VITALS: TEMP 97.8
[2024-03-25 05:18] VITALS: BP 155/72; O2SAT 100
== END 2024-03-24 21:58 | disposition home or self-care (01) ==
LOC: ER 19:22
DX: K59.00 Constipation, unspecified (principal); K57.30 Diverticulosis of large intestine without perforation or abscess without bleeding
CPT/HCPCS: 36415; 74176; 80053; 83690; 85025; 96374; 99284

== ENCOUNTER 2024-05-30 15:14 | Inpatient (IN) | payer OTHER ==
--- OUTSIDE RECORDS SUMMARY | 2024-05-30 15:18 | XMS REPORT | Continuity of Care Document ---
Author Name Unknown Address [address] [facility] [address] [place] [address] [facility] Address [address] [facility] [address] [place] [address] Care Team Providers Care Chemist Enzymes Name Role Phone ALLAN JOLLY Attending Clinician Unavailable Julianna Schaffer Attending Clinician Unavailable JULES DUNN Attending Clinician Unavailable ADRIENNE SOTO Attending Clinician Unavailable EVARISTO OSUNA Attending Clinician Unavail able Julianna Schaffer Admitting Clinician Unavailable Payers Payer Name Policy Type Policy Number Effective Date Expirati on Date Source WELL[employer] TXP CLASSIC NO PREMIUM [id number] 2023 00:00:00 MEDICARE PART A \T\ B [id number] 2010 00:00:00 Problems Condition Name Condition Details Condition Category Status Onset Date Resolution Date Last Treatment Date Treating Clinician Comments Source History of cataract History of cataract Disease Active 11-10 00:00: 00 Adele galvan Osteopenia of multiple sites Osteopenia of multiple sites Disease Active 09-25 00:00: 00 Adele Cummingsa mandy History of pneumonia History of pneumonia Disease Active 2022-08 00:00: 00 Adele Cummingsa l PVD (periphera l vascular disease) PVD (periphera l vascular disease) Disease Active 2022-08 0- 00:00: 00 Adele Bahena - Externa l Risk for falls Risk for falls Disease Active 2022-08 0 00:00: 00 Adele Seybold - Externa l Well adult exam Well adult exam Disease Active 2022-08 0 00:00: 00 Adele Trevizoold - Externa l Mixed hyperlipid emia Mixed hyperlipid emia Disease Active 2022-08 0 00:00: 00 Adele Trevizoold - Externa l 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, 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, respirator y failure (multi HCC) Disease Active 2022-08 0 00:00: 00 Adele Trevizoold - Externa l HTN (hypertens ion) HTN (hypertens ion) Disease Active 05-01 00:00: 00 Adele Trevizoold - Externa l GERD (gastroeso phageal reflux disease) GERD (gastroeso phageal reflux disease) Disease Active 05-01 00:00: 00 Adele Trevizoold - Externa l Chronic respirator y failure with hypoxia, on home O2 therapy (multi HCC) Chronic respirator y failure with hypoxia, on home O2 therapy (multi HCC) Disease Active 05-01 00:00: 00 Adele Trevizoold - Externa l 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 Disease Active 05-01 00:00: 00 Adele Trevizoold - Externa l ESRD (end stage renal disease) on dialysis (multi HCC) ESRD (end stage renal disease) on dialysis (multi HCC) Disease Active 05-01 00:00: 00 Adele Trevizoold - Externa l Carotid stenosis, bilateral Carotid stenosis, bilateral Disease Active Adele Trevizoold - Externa l Allergies, Adverse Reactions, Alerts Allergy Name Allergy Type Status Severity Reaction(s) Onset Date Inactive Date Treating Clinician Comments Source No Known Allergie s DA Active U 730 00:00: 00 [facility] Oxycodon e-Aspiri n Propensi ty to adverse reaction s Active Hallucinatio ns 11-14 00:00: 00 silviaodan Adele Bahena - Externa l OXYCODON E HCL-OXYC ODONE- A DRUG Active High Hallucinates 11-14 00:00: 00 [facility] Calcium Acetylsa licylate Propensi ty to adverse reaction s Active 04-22 00:00: 00 Other reaction( s): hallucina tion, Rash Adele Bahena - Externa l Oxycodon e Propensi ty to adverse reaction s Active 04-22 00:00: 00 Other reaction( s): hallucina tion, Rash Adele Sebishopold - Externa l Social History Social Habit Start Date Stop Date Quantity Comments Source Gender identity Sophie Bahena - External Sexual orientation Justin christiano Bahena - External ASSERTION Not Adele Bahena - External History of Occupation Adele Bahena - External Alcoholic beverage intake 2024-05-13 00:00:00 2024-05-13 00:00:00 Lifetime non-drinker (finding) Adele Bahena - External Alcohol intake 2023-11-27 00:00:00 2023-11-27 00:00:00 Lifetime non-drinker (finding) Adele Bahena - External History of Social function 2023-05-12 00:00:00 2023-05-12 00:00:00 Adele Bahena - External Education 2023-05-01 00:00:00 2023-05-01 00:00:00 17 Adele Bahena - External Tobacco use and exposure 2023-05-01 00:00:00 2023-05-01 00:00:00 Smokeless tobacco non-user Adele Bahena - External Sex 2023-03-27 12:26:32 2023-03-27 12:26:32 Female (finding) Adele Bahena - External Sex assigned at 1945 00:00:00 1945 00:00:00 Adele Bahena - External Smoking Status Start Date Stop Date Source Never smoked tobacco Adele Bahena - External Medications Ordered Medication Name Filled Medication Name Start Date Stop Date Current Medication? Ordering Clinician Indication Dosage Frequency Signature (SIG) Comments Components Source Colchicine (Colcrys) 0.6 MG oral Tablet 05-13 09:01: 42 Yes TAKE 1 TABLET BY MOUTH 4 TIMES A DAY NEEDED FOR GOUT Adele Backrobert galvan Atorvastati n Calcium 10 MG oral Tablet 05-13 09:01: 42 Yes [id number] 10mg QD Take 1 tablet (10 mg total) by mouth nightly. Adele Shruti galvan Calcium Acetate, Phos Binder, 667 MG oral Tablet 05-13 09:01: 42 Yes 1{tbl} Take 1 tablet by mouth 3 times daily (before meals). Adele galvan Calcitriol 0.25 MCG oral Capsule 05-13 09:01: 42 Yes .25ug Take 1 capsule (0.25 mcg total) by mouth three times a week On days. Adele galvan PEG 3350-KCl-Na Bcb-NaCl-Na Sulf (PEG-3350/E lectrolytes ) 236 g oral Recon Soln 04-13 00:00: 00 05-13 00:00 :00 No Take by mouth. Adele galvan Aspirin 81 MG oral Tablet Delayed Response 02-09 08:29: 34 02-09 00:00 :00 No [id number] 81mg Take 1 tablet (81 mg total) by mouth daily. Adele galvan Colchicine (Colcrys) 0.6 MG oral Tablet 02-09 08:24: 06 Yes TAKE 1 TABLET BY MOUTH 4 TIMES A DAY NEEDED FOR GOUT Adele galvan Atorvastati n Calcium 10 MG oral Tablet 02-09 08:24: 06 Yes [id number] 10mg Take 1 tablet (10 mg total) by mouth nightly. Adele galvan Calcium Acetate, Phos Binder, 667 MG oral Tablet 02-09 08:24: 06 Yes 1{tbl} Take 1 tablet by mouth 3 times daily (before meals). Adele Batista l Calcitriol 0.25 MCG oral Capsule 02-09 08:24: 06 Yes .25ug Take 1 capsule (0.25 mcg total) by mouth three times a week On dialysis days. Adele Batista l Colchicine (Colcrys) 0.6 MG oral Tablet 11-24 10:41: 33 Yes TAKE 1 TABLET BY MOUTH 4 TIMES A DAY NEEDED FOR GOUT Adele Batista l Aspirin 81 MG oral Tablet Delayed Response 11-24 10:41: 33 Yes [id number] 81mg Take 1 tablet (81 mg total) by mouth daily. Adele Cummingsa l Atorvastati n Calcium 10 MG oral Tablet 11-24 10:41: 33 Yes [id number] 10mg Take 1 tablet (10 mg total) by mouth nightly. Adele Backbishopezekiel Gutiérrez Externa l Calcium Acetate, Phos Binder, 667 MG oral Tablet 11-24 10:41: 33 Yes 1{tbl} Take 1 tablet by mouth 3 times daily (before meals). Adele Batista l Calcitriol 0.25 MCG oral Capsule 11-24 10:41: 33 Yes .25ug Take 1 capsule (0.25 mcg total) by mouth three times a week On dialysis days. Adele Batista l Colchicine (Colcrys) 0.6 MG oral Tablet 11-10 09:01: 31 Yes TAKE 1 TABLET BY MOUTH 4 TIMES A DAY NEEDED FOR GOUT Adele Batista l Aspirin 81 MG oral Tablet Delayed Response 11-10 09:01: 31 Yes [id number] 81mg Take 1 tablet (81 mg total) by mouth daily. Adele Batista l Atorvastati n Calcium 10 MG oral Tablet 11-10 09:01: 31 Yes [id number] 10mg Take 1 tablet (10 mg total) by mouth nightly. Adele Sebishopezekiel Gutiérrez Externa l Calcium Acetate, Phos Binder, 667 MG oral Tablet 11-10 09:01: 31 Yes 1{tbl} Take 1 tablet by mouth 3 times daily (before meals). Adele Bahena - Externa l Calcitriol 0.25 MCG oral Capsule 11-10 09:01: 31 Yes .25ug Take 1 capsule (0.25 mcg total) by mouth three times a week On dialysis days. Adele galvan Famotidine 40 MG oral Tablet 10-30 00:00: 00 Yes 40mg Take 1 tablet (40 mg total) by mouth at bedtime. Adele galvan Benzonatate (Tessalon Perles) 100 MG oral Capsule 00:00: 00 11-10 00:00 :00 No [id number] 100mg [id number] 3D Take 1 capsule (100 mg total) by mouth 3 times daily as needed for cough. Adele Batista l Calcitriol 0.25 MCG oral Capsule 09-25 11:12: 55 Yes .25ug Take 1 capsule (0.25 mcg total) by mouth three times a week On dialysis days. Adele galvan Calcium Acetate, Phos Binder, 667 MG oral Tablet 09-25 11:04: 58 Yes 1{tbl} Take 1 tablet by mouth 3 times daily (before meals). Adele galvan Colchicine (Colcrys) 0.6 MG oral Tablet 09-25 10:58: 01 Yes TAKE 1 TABLET BY MOUTH 4 TIMES A DAY NEEDED FOR GOUT Adele galvan Aspirin 81 MG oral Tablet Delayed Response 09-25 10:58: 01 Yes [id number] 81mg Take 1 tablet (81 mg total) by mouth daily. Adele galvan Atorvastati n Calcium 10 MG oral Tablet 09-25 10:58: 01 Yes [id number] 10mg Take 1 tablet (10 mg total) by mouth nightly. Adele Batista l Colchicine (Colcrys) 0.6 MG oral Tablet 2022-08 11:49: 06 Yes TAKE 1 TABLET BY MOUTH 4 TIMES A DAY NEEDED FOR GOUT Adele Batista l Aspirin 81 MG oral Tablet Delayed Response 2022-08 11:49: 06 Yes [id number] 81mg Take 1 tablet (81 mg total) by mouth daily. Adele Batista l Atorvastati n Calcium 10 MG oral Tablet 2022-08 11:49: 06 Yes [id number] 10mg Take 1 tablet (10 mg total) by mouth nightly. Adele galvan Albuterol HFA 108 (90 Base) MCG/ACT IN AERS 2022-08 00:00: 00 Yes [id number] 2{puff} Q.25D Inhale 2 puffs into the lungs every 6 hours as needed for wheezing. Adele galvan Famotidine 40 MG oral Tablet 2022-08 00:00: 00 08-12 00:00 :00 No 40mg Take 1 tablet (40 mg total) by mouth nightly. Adele galvan levoFLOXaci n 500 MG oral Tablet 2022-08 00:00: 00 08-12 00:00 :00 No TAKE 1 TABLET BY MOUTH EVERY 48 HOURS Adele galvan Docusate Sodium 100 MG oral Capsule 2022-08 00:00: 00 Yes 100mg Q.5D Take 1 capsule (100 mg total) by mouth 2 times daily. Adele galvan Aspirin 81 MG oral Tablet Delayed Response 2022-08 10:32: 53 Yes [id number] 81mg Take 1 tablet (81 mg total) by mouth daily. Adele galvan Atorvastati n Calcium 10 MG oral Tablet 2022-08 010 10:32: 53 Yes [id number] 10mg Take 1 tablet (10 mg total) by mouth nightly. Adele galvan Colchicine (Colcrys) 0.6 MG oral Tablet 2022-08 010 10:08: 32 Yes TAKE 1 TABLET BY MOUTH 4 TIMES A DAY NEEDED FOR GOUT Adele galvan Colchicine (Colcrys) 0.6 MG oral Tablet 2022-08 0-05 13:22: 00 Yes TAKE 1 TABLET BY MOUTH 4 TIMES A DAY NEEDED FOR GOUT Adele galvan Atenolol 25 MG oral Tablet 07 00:00: 00 Yes [id number] 1 tablet by mouth on FRIDAY, FRIDAY AND FRIDAY AT BEDTIME . Adele galvan Amlodipine Besylate 10 MG oral Tablet 03-12 00:00: 00 Yes 10mg QD Take 1 tablet (10 mg total) by mouth daily. Adele galvan Atenolol 25 MG oral Tablet 03-07 00:00: 00 05-01 00:00 :00 No 25mg Take 1 tablet (25 mg total) by mouth three times a week 1 tablet by mouth on FRIDAY, FRIDAY AND FRIDAY AT BEDTIME . Adele galvan Pantoprazol e Sodium 40 MG oral Tablet Delayed Response 12-16 00:00: 00 Yes 40mg QD Take 1 tablet (40 mg total) by mouth daily. Adele galvan Immunizations Ordered Immunization Name Filled Immunization Name Date Status Comments Source Influenza Virus Vaccine, High Dose, Age 65 And Up Unknown Completed Adele Bahena - External Vital Signs Vital Name Observation Time Observation Value Comments S ource Systolic blood pressure 2024-05-13 14:00:00 133 mm[Hg] Adele Thakkar ld - External Diastolic blood pressure 2024-05-13 14:00:00 67 mm[Hg] Adele sullivan - External Heart rate 2024-05-13 14:00:00 76 /min Casper Bahena - External Body temperature 2024-05-13 14:00:00 36.22 [place] Adele Bahena - External Respiratory rate 2024-05-13 14:00:00 16 /min Adele Bahena - External Body height 2024-05-13 14:00:00 149.9 cm Sophie Bahena - External Body weight 2024-05-13 14:00:00 63.504 kg Sophie Bahena - External BMI 2024-05-13 14:00:00 28.28 kg/m2 Sophie Bahena - External Oxygen saturation in Arterial blood by Pulse oximetry 2024-05-13 14:00:00 97 /min Adele sullivan - External Systolic blood pressure 2024-02-10 13:22:00 143 mm[Hg] Adele Thakkar ld - External Diastolic blood pressure 2024-02-10 13:22:00 62 mm[Hg] Adele sullivan - External Heart rate 2024-02-10 13:22:00 81 /min Kelse y Seybold - External Body temperature 2024-02-10 13:22:00 36.56 [place] Adele Seybold - External Respiratory rate 2024-02-10 13:22:00 16 /min Adele Seybold - External Body height 2024-02-10 13:22:00 149.9 cm Sophie ey Seybold - External Body weight 2024-02-10 13:22:00 64.864 kg Sophie ey Seybold - External BMI 2024-02-10 13:22:00 28.88 kg/m2 Sophie ey Seybold - External Oxygen saturation in Arterial blood by Pulse oximetry 2024-02-10 13:22:00 96 /min Adele Seybo ld - External Systolic blood pressure 2023-11-11 13:58:00 146 mm[Hg] Adele Seybo ld - External Diastolic blood pressure 2023-11-11 13:58:00 60 mm[Hg] Adele Seybo ld - External Heart rate 2023-11-11 13:58:00 72 /min Kelse y Seybold - External Body temperature 2023-11-11 13:58:00 35.67 [place] Adele Seybold - External Respiratory rate 2023-11-11 13:58:00 15 /min Adele Seybold - External Body height 2023-11-11 13:58:00 149.9 cm Sophie ey Seybold - External Body weight 2023-11-11 13:58:00 65.772 kg Sophie ey Seybold - External BMI 2023-11-11 13:58:00 29.29 kg/m2 Sophie ey Seybold - External Systolic blood pressure 2023-09-25 16:56:00 153 mm[Hg] Adele Seybo ld - External Diastolic blood pressure 2023-09-25 16:56:00 65 mm[Hg] Adele Seybo ld - External Heart rate 2023-09-25 16:56:00 69 /min Kelse y Seybold - External Body temperature 2023-09-25 16:56:00 36.61 [place] Adele Seybold - External Respiratory rate 2023-09-25 16:56:00 20 /min Adele Seybold - External Body height 2023-09-25 16:56:00 149.9 cm Sophie ey Seybold - External Body weight 2023-09-25 16:56:00 63.504 kg Sophie ey Seybold - External BMI 2023-09-25 16:56:00 28.28 kg/m2 Sophie ey Seybold - External Oxygen saturation in Arterial blood by Pulse oximetry 2023-09-25 16:56:00 95 /min Adele Seybo ld - External Respiratory rate 2023-08-12 17:45:00 14 /min Adele Seybold - External Body height 2023-08-12 17:45:00 149.9 cm Sophie ey Seybold - External Body weight 2023-08-12 17:45:00 65.772 kg Sophie ey Seybold - External BMI 2023-08-12 17:45:00 29.29 kg/m2 Sophie ey Seybold - External Systolic blood pressure 2023-08-12 17:45:00 148 mm[Hg] Adele Seybo ld - External Diastolic blood pressure 2023-08-12 17:45:00 56 mm[Hg] Adele Seybo ld - External Heart rate 2023-08-12 17:45:00 95 /min Kelse y Seybold - External Body temperature 2023-08-12 17:45:00 35.89 [place] Adele Seybold - External Systolic blood pressure 2023-06-03 15:07:00 128 mm[Hg] Adele Seybo ld - External Diastolic blood pressure 2023-06-03 15:07:00 62 mm[Hg] Adele Seybo ld - External Heart rate 2023-06-03 15:07:00 72 /min Kelse y Seybold - External Body temperature 2023-06-03 15:07:00 36.39 [place] Adele Seybold - External Respiratory rate 2023-06-03 15:07:00 18 /min Adele Seybold - External Body height 2023-06-03 15:07:00 149.9 cm Sophie ey Seybold - External Body weight 2023-06-03 15:07:00 65.318 kg Sophie ey Seybold - External BMI 2023-06-03 15:07:00 29.08 kg/m2 Sophie ey Seybold - External Oxygen saturation in Arterial blood by Pulse oximetry 2023-06-03 15:07:00 100 /min Adele Seybo ld - External Systolic blood pressure 2023-05-29 18:15:00 148 mm[Hg] Adele Seybo ld - External Diastolic blood pressure 2023-05-29 18:15:00 69 mm[Hg] Adele Seybo ld - External Heart rate 2023-05-29 18:15:00 76 /min Kelse y Seybold - External Body temperature 2023-05-29 18:15:00 36.5 [place] Adele Seybold - External Respiratory rate 2023-05-29 18:15:00 18 /min Adele Seybold - External Body height 2023-05-29 18:15:00 149.9 cm Sophie ey Seybold - External Body weight 2023-05-29 18:15:00 65.318 kg Sophie ey Seybold - External BMI 2023-05-29 18:15:00 29.08 kg/m2 Sophie leblanc Seybold - External Oxygen saturation in Arterial blood by Pulse oximetry 2023-05-29 18:15:00 100 /min Adele Seybo ld - External Systolic blood pressure 2023-05-01 15:54:00 99 mm[Hg] Adele Seybo ld - External Diastolic blood pressure 2023-05-01 15:54:00 54 mm[Hg] Adele Seybo ld - External Heart rate 2023-05-01 15:54:00 71 /min Tyese y Seybold - External Body temperature 2023-05-01 15:54:00 36.11 [place] Adele Seybold - External Respiratory rate 2023-05-01 15:54:00 20 /min Adele Seybold - External Body height 2023-05-01 15:54:00 149.9 cm Sophie ey Seybold - External Body weight 2023-05-01 15:54:00 63.957 kg Sophie ey Seybold - External BMI 2023-05-01 15:54:00 28.48 kg/m2 Sophie ey Seybold - External Oxygen saturation in Arterial blood by Pulse oximetry 2023-05-01 15:54:00 100 /min Adele Seybo ld - External Procedures Procedure Date / Time Performed Performing Clinicia n Source MARIAELENAAFLO 2023-06-03 15:13:24 Preyong Allan Bahena - External Encounters Start Date/Time End Date/Time Encounter Type Admission Type Attending [facility] Care Department Encounter ID Source 2024-05-28 00:00:00 2024-05-28 00:00:00 Outpatient RADHAYONG ALLAN OSORIO [id number] Adele ezekiel 2024-05-18 00:00:00 2024-05-18 00:00:00 Outpatient RADHAYONG ALLAN OSORIO [id number] Adele ezekiel 2024-05-14 00:00:00 2024-05-14 00:00:00 Outpatient RADHAYONG ALLAN OSORIO [id number] Adele ezekiel 2024-05-13 09:15:00 2024-05-13 09:15:00 Outpatient ALLAN JOLLY [id number] Adele [facility] 2024-05-11 05:12:00 2024-05-11 05:12:00 Outpatient Julianna Aguilar HCAPM ENDO [id number] [facility] 2024-05-07 00:00:00 2024-05-07 00:00:00 Outpatient RADHAINDIRADarrick ALLAN OSORIO [id number] Adele [facility] 2024-03-30 06:07:00 2024-03-30 06:07:00 Outpatient Julianna Aguilar HCAPM ENDO [id number] [facility] 2024-02-16 00:00:00 2024-02-16 00:00:00 Outpatient RADHAALLAN BUCHANAN [id number] Adele [facility] 2024-02-12 00:00:00 2024-02-12 00:00:00 Outpatient ALLAN JOLLY [id number] Adele [facility] 2024-02-10 08:15:00 2024-02-10 08:15:00 Outpatient ALLAN JOLLY [id number] [facility] 2024-01-01 11:20:00 2024-01-01 11:20:00 Outpatient VU, JULES ADELE OSORIO [id number] Adele Backybezekiel 2023-12-25 09:00:00 2023-12-25 09:00:00 Outpatient PREZAS, ALLAN ADELE OSORIO [id number] Adele Backybezekiel 2023-12-02 11:20:00 2023-12-02 11:20:00 Outpatient VU, JULES ADELE OSORIO [id number] Adele Backybezekiel 2023-11-25 11:30:00 2023-11-25 11:30:00 Outpatient ADELE OSORIO [id number] Adele Backybezekiel 2023-11-25 10:40:00 2023-11-25 10:40:00 Outpatient VU, JULES ADELE OSORIO [id number] [facility] 2023-11-18 00:00:00 2023-11-18 00:00:00 Outpatient PREZAS, ALLAN ADELE OSORIO [id number] [facility] 2023-11-11 09:00:00 2023-11-11 09:00:00 Outpatient PREZAS, ALLAN ADELE OSORIO [id number] [facility] 2023-11-06 00:00:00 2023-11-06 00:00:00 Outpatient PREZAS, ALLAN ADELE OSORIO [id number] Adele [facility] 2023-10-23 00:00:00 2023-10-23 00:00:00 Outpatient PREZAS, ALLAN ADELE OSORIO [id number] Adele [facility] 2023-10-21 00:00:00 2023-10-21 00:00:00 Outpatient PREZAS, ALLANJAZIEL OSORIO [id number] [facility] 2023-09-25 10:30:00 2023-09-25 10:30:00 Outpatient PREZAS, ALLAN OSORIO [id number] [facility] 2023-09-04 09:00:00 2023-09-04 09:00:00 Outpatient PREZAS, ALLANJAZIEL OSORIO [id number] [facility] 2023-08-28 14:00:00 2023-08-28 14:00:00 Outpatient ADELE OSORIO [id number] Adele Bahena 2023-08-28 13:30:00 2023-08-28 13:30:00 Outpatient ADELE OSORIO [id number] Adele Baehna 2023-08-28 00:00:00 2023-08-28 00:00:00 Outpatient ALLAN JOLLY [id number] Adele Bahena 2023-08-19 00:00:00 2023-08-19 00:00:00 Outpatient ALLAN JOLLY [id number] Adele Bahena 2023-08-12 11:30:00 2023-08-12 11:30:00 Outpatient ALLAN JOLLY [id number] Adele Bahena 2023-06-03 10:00:00 2023-06-03 10:00:00 Outpatient ALLAN JOLLY [id number] Adele Bahena 2023-05-29 13:30:00 2023-05-29 13:30:00 Outpatient ADRIENNE SOTO [id number] Adele Bahena 2023-05-01 10:45:00 2023-05-01 10:45:00 Outpatient ALLAN JOLLY [id number] Adele Bahena 2018-03-12 09:30:00 2018-03-12 10:31:36 Outpatient EVARISTO ORTIZ [facility] [id number] [facility] Results Test Description Test Time Test Comments Results Result Co mments Source BASIC METABOLIC [id number] 14:44:00* Test Item Value Reference Range Interpretation Comme nts SODIUM (test code = NA) 139 mmol/L 136-145 N POTASSIUM (test code = K) 4.4 mmol/L 3.4-5.0 N CHLORIDE (test code = CL) 98 mmol/L 98-107 N CARBON DIOXIDE (test code = CO2) 26 mmol/L 21-32 N ANION GAP (test code = GAP) 15 GAP calc 4-15 N GLUCOSE (test code = GLU) 103 MG/DL 70-110 N BLOOD UREA NITROGEN (test code = BUN) 55 MG/DL 7-18 H GLOMERULAR FILTRATION RATE (test code = GFR) 4 estGFR >60 L The Glomerular Filtration Rate is a calculated parameterbased on serum Creatinine, patient age and sex. GFR valuesless than 60 mL/min/1.73 square meters are indicative ofChronic Kidney Disease. Values less than 15 mL/min/1.73square meters indicate Kidney failure. The calculation forGFR is based on the CKD-EPI (202) calculation. This formulais race indifferent and is the recommended formula for GFRby the National Kidney Foundation for Adults.The GFR will not calculate if the sex is unknown or if thepatient's age is <18 years. CREATININE (test code = CREAT) 9.3 MG/DL 0.6-1.0 H CALCIUM (test code = CA) 9.7 MG/DL 8.5-10.1 N CBC W/O [id number] 14:21:00* Test Item Value Reference Range Interpretation Comme nts WHITE BLOOD CELL (test code = WBC) 9.4 K/mm3 3.5-11.0 N RED BLOOD CELL (test code = RBC) 4.00 M/mm3 4.70-6.10 L HEMOGLOBIN (test code = HGB) 11.8 G/DL 10.4-14.9 N HEMATOCRIT (test code = HCT) 39.3 % 31.5-44.1 N MEAN CELL VOLUME (test code = MCV) 98.3 Fl 84.5-98.6 N MEAN CELL HGB (test code = MCH) 29.5 pg 27.0-34.2 N MEAN CELL HGB CONCETRATION ( test code = MCHC) 30.0 G/DL 31.5-34.0 L RED CELL DISTRIBUTION WIDTH (test code = RDW) 16.1 SD 11.5-14.5 H PLATELET COUNT (test code = PLT) 249 K/mm3 150-450 N MEAN PLATELET VOLUME (test c ode = MPV) 9.90 fL 7.0-10.5 N [id number] 17:28:00* Test Item Value Reference Range Interpretation Comme nts SURGICAL (test code = SR) RUN DATE: 03/31/[address] [facility] PAGE 1 RUN TIME: 1728 Specimen Inquiry RUN USER: INTERFACE PATIENT: TINA SUAREZ LOC: JACKLYN U #: [id number] AGE/SX: 78/F ROOM: RE03/30/24REG DR: Julianna Schaffer MD : 45 BED: DIS: [place] [facility] [place]: SPEC #: [id number] RECD: 03/30/24 STATUS: MANNY WATKINS #: [id number] KINSEY: 03/30/[address] [facility] [address]: Julianna Schaffer MD ENTERED: 03/30/24 SP TYPE: SURGICAL OTHR DR: ORDERED: 60250/4, ANATOMIC SPEC, SPECIMEN TRACK PROCEDURES: [id number] (03/30/24) SPECIMEN TRACK (03/30/24) TISSUES: A. DUODENUM BIOPSY B. STOMACH BIOPSY/POLYP - ANTRUM C. STOMACH BIOPSY/POLYP - BODY AND FUNDUS D. ESOPHAGUS BIOPSY - DISTAL ESOPHAGUS FINAL DIAGNOSIS A. SMALL INTESTINE, DUODENUM, BIOPSY: - Oxyntic mucosa without pathologic alteration. - Small fragments of duodenal ledy glands. - No duodenal epithelium in the biopsy. B. STOMACH, ANTRUM, BIOPSY: - Antral mucosa with reactive gastropathy. - No Helicobacter pylori identified. - Negative for intestinal metaplasia or dysplasia. C. STOMACH, BODY AND FUNDUS, BIOPSY: - Oxyntic mucosa with reactive changes.- No Helicobacter pylori identified.- Negative for intestinal metaplasia or dysplasia. D. ESOPHAGUS, DISTAL, BIOPSY: - Squamous mucosa with mild reflux changes. - No increase in inflammation. - No increase in eosinophils. - No intestinal metaplasia or dysplasia. GROSS DESCRIPTION A. Duodenal biopsy. It consists of a single tissue fragment measuring 3 mm, entirelysubmitted as A1. B. Antrum biopsy. It consists of 2 tissue fragments measuring 2 mm each, entirelysubmitted as B1. C. Body and fundus biopsy. It consists of a single tissue fragment measuring 4 mm,entirely submitted as C1. CONTINUED ON NEXT PAGE RUN DATE: 03/31/[address] [facility] PAGE 2 RUN TIME: 1728 Specimen Inquiry RUN USER: INTERFACE SPEC #: [id number]:[facility]:[id number] PATIENT: TINA SUAREZ #[id number] (Continued) GROSS DESCRIPTION (Continued) D. Distal esophagus. It consists of a single tissue fragment measuring 5 mm, entirelysubmitted as D1. Technical tissue processing and slide preparation performed at [employer],[id number], [place] [address] MICROSCOPIC DESCRIPTION Microscopic examination is performed and the findings are incorporated into the finaldiagnosis. Please see diagnosis for findings. Signed SIGNATURE ON FILE Crista Baldwin 03/31/24 1728 END OF REPORT BASIC METABOLIC [id number] 08:21:00* Test Item Value Reference Range Interpretation Comme nts SODIUM (test code = NA) 139 mmol/L 136-145 N POTASSIUM (test code = K) 4.7 mmol/L 3.4-5.0 N CHLORIDE (test code = CL) 99 mmol/L 98-107 N CARBON DIOXIDE (test code = CO2) 24 mmol/L 21-32 N ANION GAP (test code = GAP) 16 GAP calc 4-15 H GLUCOSE (test code = GLU) 151 MG/DL 70-110 H BLOOD UREA NITROGEN (test code = BUN) 48 MG/DL 7-18 H GLOMERULAR FILTRATION RATE (test code = GFR) 4 estGFR >60 L The Glomerular Filtration Rate is a calculated parameterbased on serum Creatinine, patient age and sex. GFR valuesless than 60 mL/min/1.73 square meters are indicative ofChronic Kidney Disease. Values less than 15 mL/min/1.73square meters indicate Kidney failure. The calculation forGFR is based on the CKD-EPI (2021) calculation. This formulais race indifferent and is the recommended formula for GFRby the National Kidney Foundation for Adults.The GFR will not calculate if the sex is unknown or if thepatient's age is <18 years. CREATININE (test code = CREAT) 8.9 MG/DL 0.6-1.0 H CALCIUM (test code = CA) 9.2 MG/DL 8.5-10.1 N BASIC METABOLIC [id number] 09:37:00* Test Item Value Reference Range Interpretation Comme nts SODIUM (test code = NA) 139 mmol/L 136-145 N POTASSIUM (test code = K) 5.0 mmol/L 3.4-5.0 N CHLORIDE (test code = CL) 99 mmol/L 98-107 N CARBON DIOXIDE (test code = CO2) 22 mmol/L 21-32 N ANION GAP (test code = GAP) 18 GAP calc 4-15 H GLUCOSE (test code = GLU) 134 MG/DL 70-110 H BLOOD UREA NITROGEN (test code = BUN) 56 MG/DL 7-18 H GLOMERULAR FILTRATION RATE (test code = GFR) 4 estGFR >60 L The Glomerular Filtration Rate is a calculated parameterbased on serum Creatinine, patient age and sex. GFR valuesless than 60 mL/min/1.73 square meters are indicative ofChronic Kidney Disease. Values less than 15 mL/min/1.73square meters indicate Kidney failure. The calculation forGFR is based on the CKD-EPI (2021) calculation. This formulais race indifferent and is the recommended formula for GFRby the National Kidney Foundation for Adults.The GFR will not calculate if the sex is unknown or if thepatient's age is <18 years. CREATININE (test code = CREAT) 10.2 MG/DL 0.6-1.0 H CALCIUM (test code = CA) 9.8 MG/DL 8.5-10.1 N CBC W/O [id number] 09:08:00* Test Item Value Reference Range Interpretation Comme nts WHITE BLOOD CELL (test code = WBC) 9.5 K/mm3 3.5-11.0 N RED BLOOD CELL (test code = RBC) 3.84 M/mm3 4.70-6.10 L HEMOGLOBIN (test code = HGB) 11.9 G/DL 10.4-14.9 N HEMATOCRIT (test code = HCT) 37.4 % 31.5-44.1 N MEAN CELL VOLUME (test code = MCV) 97.4 Fl 84.5-98.6 N MEAN CELL HGB (test code = MCH) 31.0 pg 27.0-34.2 N MEAN CELL HGB CONCETRATION ( test code = MCHC) 31.8 G/DL 31.5-34.0 N RED CELL DISTRIBUTION WIDTH (test code = RDW) 17.2 SD 11.5-14.5 H PLATELET COUNT (test code = PLT) 247 K/mm3 150-450 N MEAN PLATELET VOLUME (test c ode = MPV) 10.20 fL 7.0-10.5 N [id number] 15:14:01* Test Item Value Reference Range Interpretation Comme nts Quanta[employer]lo left side (test code = 30219-8J) See_Comment [Automate d message] The system which generated this result transmitted reference range: 1.40 - 0.90 NA. The reference range was not used to interpret this result as normal/abnormal. [employer]anta[employer] right side (test code = 17814-0X) See_Comment L Exercise Modality: At Restboth feet retested Normal - 1.40 - 1.00Borderline - 0.99 - 0.90Mild - 0.89 - 0.60Moderate - 0.59 - 0.30Severe - 0.29 - 0.00 [Automated message] The system which generated this result transmitted reference range: 1.40 - 0.90 NA. The reference range was not used to interpret this result as normal/abnormal. Lab Interpretation (test code = 66451-4) Abnormal Adele Bahena - External Notes Date/Time Note Provider Source 2024-05-11 08:40:00 [facility] ([facility]) Post Anesthesia Evaluation REPORT#:[id number] REPORT STATUS: Signed REPORT INITIALIZATION DATE:05/11/24 TIME:08 PATIENT: TINA SUAREZ UNIT #: [id number] ROOM/BED: : 45 AGE: 79 SEX: F ATTEND: Julianna Schaffer MD ADM AUTHOR: Adam Herrera MD REPT SERVICE DT/TIME: 05/11/24 0840 * ALL edits or amendments must be made on the electronic/computer document * Post Anesthesia Evaluation Anes. changes from pre-op eval ORM Surgeries: Surgery Date and Time: 05/11/2024 0715 Proposed Primary Procedure: COLONOSCOPY DIAGNOSTIC Anesthetic: TIVA Date: 05/11/24 Level of consciousness: patient awake Vital signs: Last Documented: Result Date Time Pulse Ox 100 05/11 825 B/P 146/66 05/11 825 Pulse 65 05/11 825 Resp 13 05/11 825 O2 Delivery Simple mask 05/11 806 O2 Flow Rate 3 05/11 806 Temp 36.2 05/11 08 Cardiovascular: no change Respiratory/Airway: respiratory system stable Pain: adequately controlled Hydration: adequate Temp status: normothermic Presence of N/V: no Anesthesia complications: no at 0840 [facility] #: [id number] END OF REPORT [facility] 2024-03-31 08:32:00 [id number] [facility] [id number] [place] [address] PATIENT NAME: TINA SUAREZ ADMIT DATE: 03/30/24 ACCOUNT NO: [id number] ROOM NO: AGE: 79 REPORT TYPE: OPERATIVE REPORT SEX: F ADMITTING PHYSICIAN: ATTENDING PHYSICIAN: Julianna Schaffer MD OPERATION DATE: 03/30/2024 PROCEDURES: 1. EGD with biopsy. 2. Administration of anesthesia by Department of Anesthesia. INDICATIONS: Persistent dyspepsia, abdominal pain. SURGEON: Julianna Schaffer MD TOOL GRINDER OPERATOR SURFACE: PREOPERATIVE DIAGNOSIS: POSTOPERATIVE DIAGNOSIS: See below. COMPLEXITY: Moderate. ANESTHESIA: TOLERANCE TO ANESTHESIA: Excellent. PROCEDURE IN DETAIL: The procedure, possible complication, alternatives including but not limited to possibility of bleeding, perforation tear, infection, sepsis, need for surgery, need for blood transfusion, anesthesia related problems including rare fatalities and certain missing rate during the procedure were explained to the patient. Following informed consent, she was placed in left lateral position. After appropriate level of anesthesia, scope was passed. Esophageal mucosa in the proximal and mid aspect appeared to be within normal range. Distally probably some inflammatory changes are there. Biopsies done. In the stomach, mucosa of the fundus and body was relatively normal; however, in the antral area moderate gastritis noted with occasional erosions. Biopsies done. In the duodenal bulb, duodenal polyps and some inflammation was noted. Biopsies done. Duodenal part 2 appeared to be within normal range. Having done the above procedure in safe diligent and satisfactory manner, endoscope and rest of the endoscopic accessories were removed. The patient's oropharyngeal area cleaned out in respectful manner. The patient has been sent PATIENT NAME: TINA SUAREZ in excellent condition to postoperative recovery from there to home. IMPRESSION: Antral gastritis, duodenal polyp and duodenitis. PLAN: 1. Await biopsy results. 2. Continue on proton pump inhibitor for the time being. Follow up in office with biopsy. COMPLICATIONS: None. The patient tolerated the procedure well. DISPOSITION: As above. Dictated By: Julianna Schaffer MD Date Dictated: 03/31/2024 08:32:11 Date Transcribed: 03/31/2024 10:29:16 JUNG/BRIAN/JANKI Receipt ID: [id number] CC: Authenticated by Julianna Schaffer MD On 04/28/2024 09:59:06 AM at 0959 PATIENT NAME: TINA SUAREZ [facility] 2024-03-30 09:17:00 [facility] ([facility]) Post Anesthesia Evaluation REPORT#:[id number] REPORT STATUS: Signed REPORT INITIALIZATION DATE:03/30/24 TIME:916 PATIENT: TINA SUAREZ UNIT #: [id number] ROOM/BED: : 45 AGE: 78 SEX: F ATTEND: Julianna Schaffer MD ADM AUTHOR: Ling Harry MD REPT SERVICE DT/TIME: 03/30/24916 * ALL edits or amendments must be made on the electronic/computer document * Post Anesthesia Evaluation Anes. changes from pre-op eval Level of consciousness: no change, patient awake, able to answer questions, participate in this eval. Vital signs: Last Documented: Result Date Time Pulse Ox 100 03/30 910 B/P 120/63 03/30 910 O2 Delivery Room air 03/30 910 Pulse 78 03/30 0910 Resp 17 03/30 910 Temp 36.3 03/30 0900 Cardiovascular: CV system stable, vital signs stable Respiratory/Airway: respiratory system stable, maintains without support Pain: adequately controlled Hydration: adequate Temp status: normothermic Presence of N/V: no Anesthesia complications: no at 0917 RPT #: [id number] END OF REPORT [facility] 2023-11-11 09:01:33 Chief Complaint Patient presents with Follow-up 3 month follow up Kayla Rosenthal MA II [facility]
[2024-05-30 16:00] LABS: Absolute Basophils 0.1 K/uL (0-0.5); Absolute Eosinophils 0.1 K/uL (0-0.5); Absolute Lymphocytes (CBC) 2.1 K/uL (0.7-4.9); Absolute Monocytes 0.8 K/uL (0.1-1.3); Absolute Neutrophil 5.5 K/uL (1.8-8.0); Basophils % 1.2 % (0-1.3); Eosinophils % 1.4 % (0-4.4); Hematocrit 31.3 % (36.0-45.0); Hemoglobin 10.2 g/dL (12.0-15.0); MCHC 32.4 g/dL (32.0-36.0); MCV 95.7 fL (80-100); MPV 9.2 fL (7.6-11.3); Neutrophils % 64.4 % (41.7-73.7); Platelets 230 thou/uL (152-406); RBC Red Blood Cell Count 3.27 M/uL (3.86-4.86)
[2024-05-30 16:11] LABS: PT Prothrombin Time 11.6 SECONDS (9.4-12.5); Protime INR 1.04
--- NOTE | 2024-05-30 16:16 | RAD REPORT ---
EXAMINATION: ONE VIEW CHEST XR CLINICAL INDICATION: Female, 79 years old.,DYSPNEA TECHNIQUE: Frontal chest projection is submitted. Examination is limited by patient positioning and t echnique. COMPARISON: 09/10/2023 FINDINGS: Improving patchy mid to lower lung airspace opacities and central interstitial prominence. Suggested small left more than right pleural effusions. No pneumothorax. The heart is normal in size. IMPRESSION: Partial improvement of the bilateral airspace opacities as above, which again may reflect pulmonary e aaron or multifocal pneumonia.
[2024-05-30 16:22] LABS: SARS-CoV-2 Antigen CONTROL BLUE LINE VIS/BG OK; SARS-CoV-2 Antigen Rapid Res Negative (Negative)
[2024-05-30 16:25] LABS: ALT/SGPT 28 U/L (13-56); AST/SGOT 21 U/L (15-37); Albumin 3.3 g/dL (3.4-5.0); Albumin/Globulin Ratio 0.8 (1.1-1.8); Alkaline Phosphatase 75 U/L (45-117); Anion Gap 14.9 mEq/L (5.0-15.0); BUN Blood Urea Nitrogen 69 mg/dL (7-18); Bicarbonate 23 mEq/L (21-32); Bilirubin Total 0.4 mg/dL (0.2-1.0); Globulin 4.1 g/dL (2.3-3.5); Glomerular Filtration Rate 3 ml/min (=/>90); Glucose Level 170 mg/dL (74-106); Magnesium 1.6 mg/dL (1.6-2.4); NT PRO-BNP 16222 pg/mL (<450); Potassium 4.9 mEq/L (3.5-5.1); Protein, Total 7.4 g/dL (6.4-8.2); Sodium Level 135 mEq/L (136-145); Troponin High Sensitivity 31.5 pg/mL (<58.9)
[2024-05-30 16:26] LABS: Bilirubin Direct < 0.2 mg/dL (0-0.2); Bilirubin Indirect, Calculated 0.2 mg/dL (0.2-0.8)
--- NOTE | 2024-05-30 17:05 | ER ---
Nurse's Notes [facility] Name: Kevin Chou Age: 79 yrs Sex: Female : 1945 Arrival Date: 05/30/2024 Time: 15:14 Bed 7 Private MD: Diagnosis: CHF exacerbation, volume overload Presentation: 05/30 15:24 Chief complaint: Cough and SOB since this morning. Denies pain. On home 2LNC. hb Coronavirus screen: Client presents with at least one sign or symptom that may indicate coronavirus-19. Standard/surgical mask placed on the client. Provider contacted for isolation considerations. Ebola Screen: No symptoms or risks identified at this time. Initial Sepsis Screen: Does the patient meet any 2 criteria? No. Patient's initial sepsis screen is negative. Does the patient have a suspected source of infection? No. Patient's initial sepsis screen is negative. Risk Assessment: Do you want to hurt yourself or someone else? Patient reports no desire to harm self or others. Onset of symptoms was May 30, 2024. 15:24 Method Of Arrival: Wheelchair hb 15:24 Acuity: GRETA 3 hb Historical: - Allergies: 15:26 Aspirin; hb 15:26 Percodan; hb - Home Meds: 15:26 amlodipine 10 mg tab 1 tab once daily [Active]; hb - PMHx: 15:26 diabetes mellitus; DIALYSIS MWF; Hypertension; kidney disease; hb - PSHx: 15:26 Left arm fistula; hb - Immunization history:: Adult Immunizations up to date. - Infectious Disease History:: Denies. - Social history:: Smoking status: Patient denies any tobacco usage or history of. Screenin:59 [facility] ED Fall Risk Assessment (Adult) History of falling in the last 3 months, iw including since admission No falls in past 3 months (0 pts) Confusion or Disorientation No (0 pts) Intoxicated or Sedated No (0 pts) Impaired Gait Yes (1 pt) Mobility Assist Device Used Yes (1 pt) Altered Elimination No (0 pt) Score/Fall Risk Level 0 - 2 = Low Risk Oriented to surroundings, Maintained a safe environment. Abuse screen: Denies injuries from another. Nutritional screening: No deficits noted. Tuberculosis screening: No symptoms or risk factors identified. Assessment: 15:30 General: Appears in no apparent distress. Behavior is calm, cooperative. Pain: Denies iw pain. Neuro: Level of Consciousness is awake, alert, obeys commands, Oriented to person, place, time, situation, Moves all extremities. Cardiovascular: Reports shortness of breath, Denies chest pain, Rhythm is regular. Respiratory: Reports shortness of breath at rest on exertion cough that is productive, labored breathing Airway is patent Respiratory effort is even, unlabored, GI: Abdomen is round. Derm: Skin is intact, is fragile, is thin. Musculoskeletal: Range of motion: intact in all extremities. 17:30 Reassessment: Patient appears in no apparent distress at this time. Patient and/or iw family updated on plan of care and expected duration. Pain level reassessed. Patient is alert, oriented x 3, equal unlabored respirations, skin warm/dry/pink. up dated on need for admission, awaiting admission orders. 18:52 Reassessment: Patient and/or family updated on plan of care and expected duration. Pain rs5 level reassessed. Patient is alert, oriented x 3, equal unlabored respirations, skin warm/dry/pink. Vital Signs: 15:24 BP 181 / 81; Pulse 79; Resp 23; Temp 97.6(A); Pulse Ox 93% on 2 lpm NC; Weight 60.78 hb kg; Height 4 ft. 11 in. ; Pain 0/10; 16:31 BP 169 / 72; Pulse 74; Resp 19; Pulse Ox 100% on 3 lpm NC; iw 19:23 BP 152 / 76; Pulse 76; Resp 17; Pulse Ox 99% ; ha1 15:24 Body Mass Index 27.06 (60.78 kg, 149.86 cm) hb 15:24 Pain Scale: Adult hb ED Course: 15:15 Patient arrived in ED. mr 15:17 Chelo Zepeda MD is Attending Physician. sp3 15:19 Herber Greenberg, ANYA is Primary Nurse. rs5 15:26 Triage completed. hb 15:26 Arm band placed on. hb 15:48 Initial lab(s) drawn, by me, sent to lab. First set of blood cultures drawn by me. iw 15:58 Inserted saline lock: 22 gauge in right wrist, using aseptic technique. Blood iw collected. Flushed with 10 mL NS. 16:00 Patient has correct armband on for positive identification. Bed in low position. Call iw light in reach. Side rails up X2. Adult w/ patient. Client placed on continuous cardiac and pulse oximetry monitoring. NIBP monitoring applied. manager monitoring on. Noise minimized. Moved to private room. Warm blanket given. 16:06 XRAY Chest (1 view) In Process Unspecified. EDMS 17:04 Deana Scherer MD is Hospitalizing Provider. sp3 18:52 No provider procedures requiring assistance completed. rs5 19:40 Patient admitted, IV remains in place. ha1 Administered Medications: 17:02 Not Given (Physician Discretion): [id number] mg IVP once; give over 2 minutes iw Medication: 15:31 VIS not applicable for this client. iw Outcome: 17:04 Decision to Hospitalize by Provider. sp3 19:40 Admitted to Med/surg ha1 19:40 Condition: stable 19:40 Instructed on the need for admit, 20:56 Patient left the ED. ha1 Signatures: Dispatcher [employer] EDRI Billie Matos, Reg Reg mr Jennifer Neri RN RN Maria Teresa Amin RN RN hb Patel, Setul, MD MD sp3 Aurora Coleman RN RN ha1 Herber Greenberg RN RN rs5
--- NOTE | 2024-05-30 17:05 | EDPHYS ---
Physician Documentation [facility] Name: Kevin Chou Age: 79 yrs Sex: Female : 1945 Arrival Date: 05/30/2024 Time: 15:14 Bed 7 Private MD: ED Physician Chelo Zepeda HPI: 05/30 15:31 This 79 yrs old Black Female presents to ER via Wheelchair with complaints of Breathing sp3 Difficulty, Cough. 15:31 79-year-old female with history of end-stage renal disease on Friday sp3 dialysis with last dialysis on Friday, hypertension, diabetes, prior pneumonia now presents to the ED with chief complaint cough, shortness of breath for approximately 2 days. Patient's symptoms are similar to that she has had in the past. She denies any fever, chest pain, abdominal pain, nausea, vomit, diarrhea, syncope, near syncope, focal neurological deficit, prolonged immobilization, travel history, known sick contacts, or any other signs or symptoms on ROS at this time.. Historical: - Allergies: 15:26 Aspirin; hb 15:26 Percodan; hb - Home Meds: 15:26 amlodipine 10 mg tab 1 tab once daily [Active]; hb - PMHx: 15:26 diabetes mellitus; DIALYSIS MWF; Hypertension; kidney disease; hb - PSHx: 15:26 Left arm fistula; hb - Immunization history:: Adult Immunizations up to date. - Infectious Disease History:: Denies. - Social history:: Smoking status: Patient denies any tobacco usage or history of. ROS: 15:32 Constitutional: Negative for fever, chills, and weight loss, Eyes: Negative for injury, sp3 pain, redness, and discharge, ENT: Negative for injury, pain, and discharge, Neck: Negative for injury, pain, and swelling, Cardiovascular: Negative for chest pain, palpitations, and edema, Abdomen/GI: Negative for abdominal pain, nausea, vomiting, diarrhea, and constipation, Back: Negative for injury and pain, MS/Extremity: Negative for injury and deformity, Skin: Negative for injury, rash, and discoloration, Neuro: Negative for headache, weakness, numbness, tingling, and seizure, Psych: Negative for depression, anxiety, suicide ideation, homicidal ideation, and hallucinations, Allergy/Immunology: Negative for hives, rash, and allergies, Endocrine: Negative for neck swelling, polydipsia, polyuria, polyphagia, and marked weight changes, Hematologic/Lymphatic: Negative for swollen nodes, abnormal bleeding, and unusual bruising, 15:32 All other systems are negative, Exam: 15:32 Constitutional: This is a well developed, well nourished patient who is awake, alert, sp3 and in no acute distress. Head/Face: Normocephalic, atraumatic. Eyes: Pupils equal round and reactive to light, extra-ocular motions intact. Lids and lashes normal. Conjunctiva and sclera are non-icteric and not injected. Cornea within normal limits. Periorbital areas with no swelling, redness, or edema. ENT: Nares patent. No nasal discharge, no septal abnormalities noted. External auditory canals are clear. Oropharynx with no redness, swelling, or masses, exudates, or evidence of obstruction, uvula midline. Mucous membranes moist. Neck: Trachea midline, no thyromegaly or masses palpated, and no cervical lymphadenopathy. Supple, full range of motion without nuchal rigidity, or vertebral point tenderness. No Meningismus. Chest/axilla: Normal chest wall appearance and motion. Nontender with no deformity. No lesions are appreciated. Cardiovascular: Regular rate and rhythm with a normal S1 and S2. No gallops, murmurs, or rubs. Normal PMI, no JVD. No pulse deficits. Abdomen/GI: Soft, non-tender, with normal bowel sounds. No distension or tympany. No guarding or rebound. No evidence of tenderness throughout. Back: No spinal tenderness. No costovertebral tenderness. Full range of motion. Skin: Warm, dry with normal turgor. Normal color with no rashes, no lesions, and no evidence of cellulitis. MS/ Extremity: Pulses equal, no cyanosis. Neurovascular intact. Full, normal range of motion. Neuro: Awake and alert, GCS 15, oriented to person, place, time, and situation. Cranial nerves II-XII grossly intact. Motor strength 5/5 in all extremities. Sensory grossly intact. Cerebellar exam normal. Normal gait. Psych: Awake, alert, with orientation to person, place and time. Behavior, mood, and affect are within normal limits. 15:32 ECG was reviewed by the Attending Physician. EKG demonstrates normal sinus rhythm at 77 bpm with a first-degree AV block with VA interval at 2 5 0 ms, slightly leftward axis and nonspecific ST/T changes particularly inferiorly without evidence of acute ischemia. 15:32 Respiratory: Active cough noted with scattered wheeze., Vital Signs: 15:24 BP 181 / 81; Pulse 79; Resp 23; Temp 97.6(A); Pulse Ox 93% on 2 lpm NC; Weight 60.78 hb kg; Height 4 ft. 11 in. ; Pain 0/10; 16:31 BP 169 / 72; Pulse 74; Resp 19; Pulse Ox 100% on 3 lpm NC; iw 19:23 BP 152 / 76; Pulse 76; Resp 17; Pulse Ox 99% ; ha1 15:24 Body Mass Index 27.06 (60.78 kg, 149.86 cm) hb 15:24 Pain Scale: Adult hb MDM: 15:17 Patient medically screened. sp3 15:33 Data reviewed: vital signs, nurses notes, old medical records, lab test result(s), EKG, sp3 radiologic studies. ED course: 79-year-old female with PMH above now with difficulty breathing. Differential diagnosis includes volume overload, congestive heart failure, pneumonia, pancolitis, viral illness including influenza and/or COVID-19, ACS, among others. Workup will include EKG, chest x-ray and general labs coupled with swabs. Disposition pending workup and patient course.. 16:49 ED course: Patient with elevated BNP in the setting of ESRD similar to prior episodes. sp3 Will place under hospitalist care for further treatment and evaluation.. 05/30 15:28 Order name: Basic Metabolic Panel; Complete Time: 16:45 sp3 05/30 15:28 Order name: CBC with Diff; Complete Time: 16:25 sp3 05/30 15:28 Order name: LFT's; Complete Time: 16:45 sp3 05/30 15:28 Order name: Magnesium; Complete Time: 16:45 sp3 05/30 15:28 Order name: NT PRO-BNP; Complete Time: 16:45 sp3 05/30 15:28 Order name: PT-INR; Complete Time: 16:25 sp3 05/30 15:28 Order name: Troponin HS; Complete Time: 16:45 sp3 05/30 15:28 Order name: Lactate w/ 2H reflex if indic.; Complete Time: 16:45 sp3 05/30 15:28 Order name: Blood Culture Adult (2) sp3 05/30 15:31 Order name: Flu; Complete Time: 16:25 sp3 05/30 15:31 Order name: SARS RAPID; Complete Time: 16:25 sp3 05/30 18:40 Order name: CBC with Automated Diff EDMS 05/30 18:40 Order name: CBC with Automated Diff EDMS 05/30 18:40 Order name: Comprehensive Metabolic Panel EDMS 05/30 18:40 Order name: Comprehensive Metabolic Panel EDMS 05/30 18:40 Order name: Troponin High Sensitivity EDMS 05/30 18:40 Order name: Troponin High Sensitivity EDMS 05/30 18:40 Order name: Troponin High Sensitivity EDMS 05/30 18:40 Order name: Troponin High Sensitivity EDMS 05/30 15:28 Order name: XRAY Chest (1 view); Complete Time: 16:25 sp3 05/30 15:28 Order name: EKG; Complete Time: 15:29 sp3 05/30 15:28 Order name: Cardiac monitoring; Complete Time: 15:33 sp3 05/30 15:28 Order name: EKG - Nurse/Tech; Complete Time: 15:33 sp3 05/30 15:28 Order name: IV Saline Lock; Complete Time: 15:54 sp3 05/30 15:28 Order name: Labs collected and sent; Complete Time: 15:54 sp3 05/30 15:28 Order name: O2 Per Protocol; Complete Time: 15:33 sp3 05/30 15:28 Order name: O2 Sat Monitoring; Complete Time: 15:33 sp3 Administered Medications: 17:02 Not Given (Physician Discretion): [id number] mg IVP once; give over 2 minutes iw Disposition Summary: 05/30/24 17:04 Hospitalization Ordered Notes: Hospitalization Status: Inpatient Admission sp3 Provider: Deana Scherer sp3 Location: Telemetry/MedSurg (Inpatient) sp3 Condition: Stable sp3 Problem: an acute exacerbation sp3 Symptoms: have worsened sp3 Bed/Room Type: Standard sp3 Room Assignment: 209(05/30/24 19:05) vk Diagnosis - CHF exacerbation, volume overload sp3 Forms: - Medication Reconciliation Form sp3 - SBAR form sp3 - Leadership Thank You Letter sp3 Signatures: Dispatcher [employer] Maria Teresa Macario RN RN Chelo Zepeda MD MD sp3 Chetna Ch Irene RN iw Corrections: (The following items were deleted from the chart) 19:05 17:04 razia walker
[2024-05-30] MEDS ORDERED: ACETAMINOPHEN 500 MG TAB PO PRN (18:35)
[2024-05-30 21:29] VITALS: BMI 27.0
[2024-05-30] MEDS: FUROSEMIDE 40 MG/4 ML VIAL ONE (21:31)
[2024-05-30] MEDS: FUROSEMIDE 40 MG/4 ML VIAL IV SCH (22:09)
[2024-05-30] MEDS: ONDANSETRON 4 MG/2 ML VIAL IV PRN (22:09)
[2024-05-30] MEDS: HYDRALAZINE HCL 20 MG/ML VIAL IV PRN (23:04)
--- NOTE | 2024-05-30 23:21 | P.HP ---
Certification for Inpatient Patient admitted to: Inpatient With expected LOS: >2 Midnights Patient will require the following post-hospital care: None Practitioner: I am a practitioner with admitting privileges, knowledge of patient current condition, hospital course, and medical plan of care. Services: Services provided to patient in accordance with Admission requirements found in Title 42 Section 412.3 of the Code of Federal Regulations Patient History Date of Service: 05/30/24 Reason for admission: Shortness of breath History of Present Illness: Patient is a 79-year-old female who came to the hospital with shortness of breath along with cough and congestion. Patient has history of end-stage renal disease and was placed on hemodialysis where patient goes on Friday, Friday, and Fridays. Patient presents to the emergency room once again with shortness of breath. Patient states she went to dialysis on Fridays. She denies any other issues. Patient was given diuresis in the emergency room. Patient will be admitted to the hospital for further evaluation. Allergies aspirin [From Percodan] Adverse Reaction (Verified 05/07/23 23:23) hallucination oxycodone [From Percodan] Adverse Reaction (Verified 05/07/23 23:23) hallucination Home Medications: Amlodipine [Norvasc*] 10 mg PO DAILY 06/26/22 Atorvastatin Calcium [Lipitor*] 20 mg PO BEDTIME #30 tab 06/27/22 atenoloL [Tenormin] 25 mg PO M,W,F 05/07/23 Docusate [Colace Cap*] 100 mg PO BID #60 cap 07/23/23 Ubidecarenone [Coenzyme Q10*] 200 mg PO DAILY #30 cap 07/23/23 Vitamin D [Drisdol*] 50,000 unit PO Q7D@0900 #4 cap 07/23/23 levoFLOXacin [Levaquin*] 500 mg PO Q48H #4 tab 07/23/23 - Past Medical/Surgical History Has patient received pneumonia vaccine in the past: Yes Diabetic: No -: ESRD (Dr. Dunbar/ Dr. Zarate) -: HTN -: Diastolic CHF -: DM II -: HLD -: Gout -: hysterectomy -: lumpectomy -: cataract surgery Psychosocial/ Personal History: Patient lives at home and is . - Family History Mother Medical History: Hypertension, Kidney disease Father Medical History: Hypertension, Kidney disease - Social History Smoking Status: Never smoker Alcohol use: No CD- Drugs: No Caffeine use: Yes Place of Residence: Home Review of Systems 10-point ROS is otherwise unremarkable Physical Examination - Vital Signs Temperature: 97.6 F Blood Pressure: 199/85 Pulse: 81 Respirations: 17 Pulse Ox (%): 91 - Physical Exam General: Alert, In no apparent distress, Oriented x3 HEENT: Atraumatic, PERRLA, Mucous membr. moist/pink, EOMI, Sclerae nonicteric Neck: Supple, 2+ carotid pulse no bruit, No LAD, Without JVD or thyroid abnormality Respiratory: Diminished, Crackles/rales Cardiovascular: Regular rate/rhythm, Normal S1 S2, No murmurs Gastrointestinal: Normal bowel sounds, Soft and benign, Non-distended, No ten derness Musculoskeletal: No clubbing, No swelling, No tenderness Integumentary: No rashes Neurological: Normal gait, Normal speech, Normal strength at 5/5 x4 extr, Normal tone, Sensation intact, Cranial nerves 3-12 intact, Normal affect Lymphatics: No axilla or inguinal lymphadenopathy - Studies Laboratory Data (last 24 hrs) 05/30/24 05/30/24 05/30/24 15:48 15:48 15:48 WBC 8.60 Hgb 10.2 L Hct 31.3 L Plt Count 230 PT 11.6 INR 1.04 Sodium 135 L Potassium 4.9 BUN 69 H Creatinine 10.80 H Glucose 170 H Magnesium 1.6 Total Bilirubin 0.4 AST 21 ALT 28 Alkaline Phosphatase 75 Microbiology Data (last 24 hrs): 05/30/24 15:48 Nasopharnyx Influenza Type A Antigen Screen - Final 05/30/24 15:48 Nasopharnyx Influenza Type B Antigen Screen - Final Assessment & Plan - Problems (Diagnosis) (1) Pulmonary edema Current Visit: No Status: Acute Qualifiers: (2) End stage renal disease Current Visit: No Status: Acute (3) Diabetes Onset Date: 01/17/17 Current Visit: No Status: Chronic Qualifiers: (4) HTN (hypertension) Onset Date: 01/17/17 Current Visit: No Status: Chronic - Plan 1. Echocardiogram from earlier this year reviewed with normal ejection fraction with diastolic heart failure. 2. Continue with IV diuretics and will consult Nephrology for hemodialysis 3. Aggressive diuresis 4. Strict I's and O's 5. Repeat CXR 6. Daily weights 7. Education regarding diet and treatment of congestive heart failure Discharge Plan: Home Plan to discharge in: Greater than 2 days - Advance Directives Does patient have a Living Will: No Does patient have a Durable POA for Healthcare: No - Code Status/Comfort Care Code Status Assessed: Yes Code Status: Full Code Critical Care: No Time Spent Managing PTS Care (In Minutes): 45
[2024-05-30] MEDS: ALBUTEROL 2.5 MG/3 ML NEB SOL NEB PRN (23:49)
[2024-05-30] MEDS: METOCLOPRAMIDE 10 MG/2mL INJ IV ONE (23:50)
[2024-05-30] MEDS: cloNIDine HCL 0.1 MG TAB PO ONE (23:53)
[2024-05-31] MEDS ORDERED: ALBUTEROL 2.5 MG/3 ML NEB SOL NEB SCH (03:00)
[2024-05-31 04:26] LABS: Absolute Basophils 0.1 K/uL (0-0.5); Absolute Monocytes 0.8 K/uL (0.1-1.3); Absolute Neutrophil 10.2 K/uL (1.8-8.0); Basophils % 0.8 % (0-1.3); Hematocrit 32.7 % (36.0-45.0); Hemoglobin 10.3 g/dL (12.0-15.0); Lymphocytes % 8.3 % (15.3-44.8); MCH 30.1 pg (27.0-35.0); MCHC 31.6 g/dL (32.0-36.0); MCV 95.3 fL (80-100); MPV 9.4 fL (7.6-11.3); Monocytes % 6.4 % (3.3-12.3); Neutrophils % 84.5 % (41.7-73.7); Platelets 219 thou/uL (152-406); RBC Red Blood Cell Count 3.43 M/uL (3.86-4.86); Red Cell Distribution Width 17.5 % (12.1-15.2)
[2024-05-31] MEDS: METOPROLOL TAR 25 MG TAB PO SCH (06:07)
[2024-05-31 06:54] LABS: Albumin/Globulin Ratio 0.8 (1.1-1.8); Anion Gap 15.9 mEq/L (5.0-15.0); Bilirubin Total 0.5 mg/dL (0.2-1.0); Globulin 3.8 g/dL (2.3-3.5); Magnesium 1.6 mg/dL (1.6-2.4); Potassium 5.9 mEq/L (3.5-5.1); Protein, Total 6.8 g/dL (6.4-8.2)
[2024-05-31 06:58] LABS: Troponin High Sensitivity 125.9 pg/mL (<58.9)
[2024-05-31] MEDS ORDERED: D50W 25 GM/50 ML SYRINGE IV ONE (07:30)
--- NOTE | 2024-05-31 07:37 | P.PN ---
Subjective Date of Service: 05/31/24 Chief Complaint: Shortness of breath Pt had bradycardia in the 30s overnight. She states she gets dialysis at 0500 M/W/F. Last dialysis Friday. This am she is awake, alert. HR 72 bpm with prolonged pr interval, flipped t in lead III, denies CP. Review of Systems 10-point ROS is otherwise unremarkable General: Weakness Eyes: Unremarkable ENT: Unremarkable Respiratory: Unremarkable Cardiovascular: Unremarkable Gastrointestinal: Unremarkable Genitourinary: Unremarkable Musculoskeletal: Unremarkable Integumentary: Unremarkable Neurological: Unremarkable Lymphatics: Unremarkable Physical Examination - Vital Signs Temperature: 97.9 F Blood Pressure: 149/63 Pulse: 77 Respirations: 20 Pulse Ox (%): 95 - Physical Exam General: Alert, Oriented x3, Other (weak) HEENT: Atraumatic, Normocephalic Neck: Supple Respiratory: Normal air movement Cardiovascular: No edema, Regular rate/rhythm, Systolic murmur Capillary refill: <2 Seconds Gastrointestinal: Normal bowel sounds Musculoskeletal: No clubbing, No swelling Integumentary: No rashes Neurological: Normal affect, Abnormal strength Lymphatics: No axilla or inguinal lymphadenopathy Urinary: Dialysis catheter External genitalia: Deferred Rectal: Deferred - Studies Laboratory Data (last 24 hrs) 05/30/24 05/30/24 05/30/24 15:48 15:48 15:48 WBC 8.60 Hgb 10.2 L Hct 31.3 L Plt Count 230 PT 11.6 INR 1.04 Sodium 135 L Potassium 4.9 BUN 69 H Creatinine 10.80 H Glucose 170 H Magnesium 1.6 Total Bilirubin 0.4 AST 21 ALT 28 Alkaline Phosphatase 75 Microbiology Data (last 24 hrs): 05/30/24 15:48 Nasopharnyx Influenza Type A Antigen Screen - Final 05/30/24 15:48 Nasopharnyx Influenza Type B Antigen Screen - Final Assessment And Plan - Plan Assessment & Plan - Problems (Diagnosis) (1) Pulmonary edema Current Visit: No Status: Acute Qualifiers: (2) End stage renal disease Current Visit: No Status: Acute (3) Diabetes Onset Date: 01/17/17 Current Visit: No Status: Chronic Qualifiers: (4) HTN (hypertension) Onset Date: 01/17/17 Current Visit: No Status: Chronic - Plan 1. Echocardiogram from earlier this year reviewed with normal ejection fraction with diastolic heart failure. 2. Continue with IV diuretics and will consult Nephrology for hemodialysis 3. Aggressive diuresis 4. Strict I's and O's 5. Repeat CXR 6. Daily weights 7. Education regarding diet and treatment of congestive heart failure (5) Hyperkalemia 05/31/24 Calcium gluconate 1gm Glucose 1 amp (25gm) Insulin 10u IV x 1 Lokelma 10gm po x 1 Dialysis tele (6) Elevated Troponin probably second to overload no chest pain consult cardiology Discharge Plan: Home Plan to discharge in: Greater than 2 days - Advance Directives Does patient have a Living Will: No Does patient have a Durable POA for Healthcare: No - Code Status/Comfort Care Code Status Assessed: Yes Code Status: Full Code Critical Care: No Time Spent Managing PTS Care (In Minutes): 35 Discharge Plan: Home Plan to discharge in: 48 Hours - Code Status/Comfort Care Code Status Assessed: Yes (full)
[2024-05-31] MEDS: D10W 125 ML IV PRN (07:50)
[2024-05-31] MEDS: CALCIUM GLUCONATE 1 GM IVPB 1 GM/50 ML BAG IV SCH (07:50)
[2024-05-31] MEDS: INSULIN REGULAR (HUMAN) 100 UNIT/ML IV ONE (07:55)
[2024-05-31] MEDS: SODIUM ZIRCONIUM CYCLOSILICATE 10 GM/PKT PO SCH (09:17)
[2024-05-31] MEDS: AMLODIPINE 10 MG TAB PO SCH (09:17)
--- NOTE | 2024-05-31 11:17 | P.CNS ---
Date of Consult: 05/31/24 Chief Complaint: Shortness of breath History of Present Illness: Patient with PMH of heart failure preserved EF, ESRD on HD, anuric, presented with worsening SOB, high BP and weakness, denies chest pain, no palpitations, no syncope. Allergies aspirin [From Percodan] Adverse Reaction (Verified 05/07/23 23:23) hallucination oxycodone [From Percodan] Adverse Reaction (Verified 05/07/23 23:23) hallucination Home medications list reviewed: Yes Home Medications: Amlodipine [Norvasc*] 10 mg PO DAILY 06/26/22 Atorvastatin Calcium [Lipitor*] 20 mg PO BEDTIME #30 tab 06/27/22 atenoloL [Tenormin] 25 mg PO M,W,F 05/07/23 Docusate [Colace Cap*] 100 mg PO BID #60 cap 07/23/23 Ubidecarenone [Coenzyme Q10*] 200 mg PO DAILY #30 cap 07/23/23 Vitamin D [Drisdol*] 50,000 unit PO Q7D@0900 #4 cap 07/23/23 levoFLOXacin [Levaquin*] 500 mg PO Q48H #4 tab 07/23/23 - Past Medical/Surgical History Diabetic: No -: ESRD (Dr. Dunbar/ Dr. Zarate) -: HTN -: Diastolic CHF -: DM II -: HLD -: Gout -: hysterectomy -: lumpectomy -: cataract surgery Psychosocial/ Personal History: Patient lives at home and is . - Family History Mother Medical History: Hypertension, Kidney disease Father Medical History: Hypertension, Kidney disease - Social History Smoking Status: Unknown if ever smoked Alcohol use: No CD- Drugs: No Caffeine use: Yes Place of Residence: Home Review of Systems 10-point ROS is otherwise unremarkable Physical Examination Temp Pulse Resp BP Pulse Ox 97.9 F 71 15 144/60 H 96 05/31/24 08:00 05/31/24 09:17 05/31/24 08:00 05/31/24 09:17 05/31/24 08:00 General: Alert, In no apparent distress HEENT: Atraumatic, PERRLA, Mucous membr. moist/pink, EOMI, Sclerae nonicteric Neck: Supple, 2+ carotid pulse no bruit, No LAD, Without JVD or thyroid abnormality Respiratory: Clear to auscultation bilaterally, Normal air movement Cardiovascular: Regular rate/rhythm, Normal S1 S2 Gastrointestinal: Normal bowel sounds, No tenderness Musculoskeletal: No tenderness Integumentary: No rashes Neurological: Normal gait, Normal speech, Normal tone, Normal affect Lymphatics: No axilla or inguinal lymphadenopathy Laboratory Data (last 24 hrs) 05/30/24 05/30/24 05/30/24 15:48 15:48 15:48 WBC 8.60 Hgb 10.2 L Hct 31.3 L Plt Count 230 PT 11.6 INR 1.04 Sodium 135 L Potassium 4.9 BUN 69 H Creatinine 10.80 H Glucose 170 H Magnesium 1.6 Total Bilirubin 0.4 AST 21 ALT 28 Alkaline Phosphatase 75 - Problems (1) Acute on chronic diastolic heart failure Current Visit: Yes Status: Acute Plan: Patient is dialysis dependant, do not procedure any urine recommend more aggressive diuresis, appreciate Nephrology input d/c LOPRESSOR, Switch to Coreg 12.5 mg po BID D/C Norvasc recommend adding Entresto 24/26 mg po BID (if ok with Nephrology). (2) NSTEMI (non-ST elevated myocardial infarction) Current Visit: Yes Status: Acute Plan: patient is chest pain free, most likely demand ischemia for high BP and pulmonary edema. continue to trend x 3 sets (3) Mobitz type 2 second degree heart block Current Visit: Yes Status: Acute Plan: happens at night when patient is sleeping, recommend outpatient sleep study to be done through patient primary care office. follow up as outpatient for event monitor.
--- NOTE | 2024-05-31 11:53 | EKG ---
Test Date: 2024-05-30 Test Time: 15:28:52 Manager Content: DEVAN MEASUREMENT RESULTS: Intervals: Rate: 77 TX: 250 QRSD: 66 QT: 392 QTc: 443 Walling: P: 55 TX: 250 QRS: -12 T: 43 INTERPRETIVE STATEMENTS: Sinus rhythm with 1st degree AV block Possible Left atrial enlargement Left ventricular hypertrophy Abnormal ECG Compared to ECG 09/10/2023 15:19:50 First degree AV block now present Sinus arrhythmia no longer present ST (T wave) deviation no longer present Electronically Signed On 05-31-24 11:51:40 CDT by Syed Hurtado
--- NOTE | 2024-05-31 12:36 | P.CNS ---
Date of Consult: 05/31/24 Reason for Consult: ESRD Requesting Physician: Deana Scherer Chief Complaint: Shortness of breath History of Present Illness: Patient is a 79-year-old female who came to the hospital with shortness of breath along with cough and congestion. Patient has history of end-stage renal disease and was placed on hemodialysis where patient goes on Friday, Friday, and Fridays. Patient presents to the emergency room once again with shortness of breath. Patient states she went to dialysis on Fridays. She denies any other issues. Patient was given diuresis in the emergency room. Patient will be admitted to the hospital for further evaluation. [id number] 15:31 This 79 yrs old Black Female presents to ER via Wheelchair with complaints of Breathing sp3 Difficulty, Cough. 15:31 79-year-old female with history of end-stage renal disease on Friday sp3 dialysis with last dialysis on Friday, hypertension, diabetes, prior pneumonia now presents to the ED with chief complaint cough, shortness of breath for approximately 2 days. Patient's symptoms are similar to that she has had in the past. She denies any fever, chest pain, abdominal pain, nausea, vomit, diarrhea, syncope, near syncope, focal neurological deficit, prolonged immobilization, travel history, known sick contacts, or any other signs or symptoms on ROS at this time.. Allergies aspirin [From Percodan] Adverse Reaction (Verified 05/07/23 23:23) hallucination oxycodone [From Percodan] Adverse Reaction (Verified 05/07/23 23:23) hallucination Home medications list reviewed: Yes Home Medications: Amlodipine [Norvasc*] 10 mg PO DAILY 06/26/22 Atorvastatin Calcium [Lipitor*] 20 mg PO BEDTIME #30 tab 06/27/22 atenoloL [Tenormin] 25 mg PO M,W,F 05/07/23 Docusate [Colace Cap*] 100 mg PO BID #60 cap 07/23/23 Ubidecarenone [Coenzyme Q10*] 200 mg PO DAILY #30 cap 07/23/23 Vitamin D [Drisdol*] 50,000 unit PO Q7D@0900 #4 cap 07/23/23 levoFLOXacin [Levaquin*] 500 mg PO Q48H #4 tab 07/23/23 - Past Medical/Surgical History Diabetic: No -: ESRD (Dr. Dunbar/ Dr. Zarate) -: HTN -: Diastolic CHF -: DM II -: HLD -: Gout -: hysterectomy -: lumpectomy -: cataract surgery Psychosocial/ Personal History: Patient lives at home and is . - Family History Mother Medical History: Hypertension, Kidney disease Father Medical History: Hypertension, Kidney disease - Social History Smoking Status: Unknown if ever smoked Alcohol use: No CD- Drugs: No Caffeine use: Yes Place of Residence: Home Review of Systems 10-point ROS is otherwise unremarkable General: Weakness, Malaise Respiratory: Shortness of Breath Gastrointestinal: Nausea Physical Examination Temp Pulse Resp BP Pulse Ox 97.9 F 77 20 149/63 H 95 05/31/24 11:48 05/31/24 11:48 05/31/24 11:48 05/31/24 11:48 05/31/24 11:48 General: In no apparent distress, Oriented x3, Cooperative HEENT: Atraumatic Neck: Supple Respiratory: Diminished Cardiovascular: Regular rate/rhythm, Edema Gastrointestinal: Soft and benign, Non-distended Musculoskeletal: No clubbing, No contractures Integumentary: No rashes, No cyanosis Neurological: Normal speech Laboratory Data (last 24 hrs) 05/30/24 05/30/24 05/30/24 15:48 15:48 15:48 WBC 8.60 Hgb 10.2 L Hct 31.3 L Plt Count 230 PT 11.6 INR 1.04 Sodium 135 L Potassium 4.9 BUN 69 H Creatinine 10.80 H Glucose 170 H Magnesium 1.6 Total Bilirubin 0.4 AST 21 ALT 28 Alkaline Phosphatase 75 Imagings Data: darrenrice LEFT VENTRICULAR WALL MOTION: NORMAL DOPPLER/COLOR FLOW: SEE BELOW COMMENTS: 1. NORMAL LEFT VENTRICULAR EJECTION FRACTION 60-65% 2. NORMAL WALL MOTION 3. MILD MITRAL REGURGITATION, TRICUSPID [id number] EXAMINATION: ONE VIEW CHEST XR CLINICAL INDICATION: Female, 79 years old.,DYSPNEA TECHNIQUE: Frontal chest projection is submitted. Examination is limited by patient positioning and technique. COMPARISON: 09/10/2023 FINDINGS: Improving patchy mid to lower lung airspace opacities and central interstitial prominence. Suggested small left more than right pleural effusions. No pneumothorax. The heart is normal in size. IMPRESSION: Partial improvement of the bilateral airspace opacities as above, which again may reflect pulmonary edema or multifocal pneumonia. Conclusions/Impression: ESRD on HD Hyponatremia Hyperkalemia -Acute HD ordered -Seen and examined on HD HTN with CKD/ CHF -Continue Entresto -Continue Coreg Diastolic CHF, A/C -HD with UF -Low sodium diet -Agree with Entresto Anemia in CKD -Retacrit prn CKD MBD -Start Calcitriol Case reviewed with Dr. Scherer Thank you kindly for the consultation
[2024-05-31 13:14] LABS: Hepatitis B surface AG Interp. Nonreactive (Nonreactive)
[2024-05-31 13:15] LABS: HBsAG Nonreactive Report Report
[2024-05-31] MEDS: carvediloL 12.5 MG TAB PO SCH (18:07)
[2024-05-31] MEDS ORDERED: FUROSEMIDE 40 MG/4 ML VIAL IV SCH (20:00)
[2024-05-31] MEDS: SACUBITRIL/VALSARTAN 24/26 MG TAB PO SCH (21:03)
[2024-06-01 07:43] LABS: Absolute Eosinophils 0.1 K/uL (0-0.5); Absolute Lymphocytes (CBC) 1.9 K/uL (0.7-4.9); Absolute Monocytes 1.2 K/uL (0.1-1.3); Absolute Neutrophil 4.9 K/uL (1.8-8.0); Basophils % 0.3 % (0-1.3); Eosinophils % 1.2 % (0-4.4); Hematocrit 29.8 % (36.0-45.0); Hemoglobin 9.6 g/dL (12.0-15.0); Lymphocytes % 23.4 % (15.3-44.8); MCH 30.9 pg (27.0-35.0); MCHC 32.2 g/dL (32.0-36.0); MPV 9.4 fL (7.6-11.3); Monocytes % 14.3 % (3.3-12.3); Neutrophils % 60.8 % (41.7-73.7); Platelets 194 thou/uL (152-406); RBC Red Blood Cell Count 3.11 M/uL (3.86-4.86); Red Cell Distribution Width 17.3 % (12.1-15.2)
[2024-06-01 08:05] LABS: Albumin 2.8 g/dL (3.4-5.0); Albumin/Globulin Ratio 0.7 (1.1-1.8); Anion Gap 14.6 mEq/L (5.0-15.0); Bilirubin Total 0.5 mg/dL (0.2-1.0); Globulin 4.1 g/dL (2.3-3.5); Magnesium 1.9 mg/dL (1.6-2.4); Potassium 4.6 mEq/L (3.5-5.1); Protein, Total 6.9 g/dL (6.4-8.2)
--- NOTE | 2024-06-01 09:31 | P.DS ---
Admission Date: 05/30/24 Discharge Date: 06/01/24 Disposition: ROUTINE DISCHARGE Discharge Condition: GOOD Reason for Admission: Shortness of breath Consultations: Dr. Manjinder Hurtado Brief History of Present Illness: Patient is a 79-year-old female who came to the hospital with shortness of breath along with cough and congestion. Patient has history of end-stage renal disease and was placed on hemodialysis where patient goes on Friday, Friday, and Fridays. Patient presents to the emergency room once again with shortness of breath. Patient states she went to dialysis on Fridays. She denies any other issues. Patient was given diuresis in the emergency room. Patient will be admitted to the hospital for further evaluation. Hospital Course: Ms. Chou required dialysis yesterday 05/31/2024 and she is feeling back to normal and wishes to be discharged home. Cardiology, Dr. Hurtado, recommends stopping Norvasc and metoprolol and starting Entresto and Coreg. Troponin elevation during hospitalization probably secondary to need for diuresis. Heart rate decreased to 30 with a Mobitz type 2 rhythm and an outpatient evaluation for sleep apnea is recommended. Will need to follow-up with Dr. Hurtado for an event monitor. She should also follow-up with Dr. Dunbar for reevaluation and dialysis. Vital Signs/Physical Exam: Temp Pulse Resp BP Pulse Ox 97.5 F 66 17 112/53 L 96 06/01/24 08:00 06/01/24 08:00 06/01/24 08:00 06/01/24 08:00 06/01/24 08:00 General: Alert, In no apparent distress, Oriented x3 HEENT: Atraumatic, Normocephalic Neck: Supple Respiratory: Clear to auscultation bilaterally, Normal air movement Cardiovascular: Regular rate/rhythm, Systolic murmur Capillary refill: <2 Seconds Gastrointestinal: Normal bowel sounds, Soft and benign Musculoskeletal: No clubbing, No swelling Integumentary: No rashes Neurological: Normal speech, Normal tone, Normal affect Lymphatics: No axilla or inguinal lymphadenopathy External genitalia: Deferred Rectal: Deferred Laboratory Data at Discharge: WBC 8.10 thou/uL (4.3-10.9) 06/01/24 07:08 Hgb 9.6 g/dL (12.0-15.0) L 06/01/24 07:08 Hct 29.8 % (36.0-45.0) L 06/01/24 07:08 Plt Count 194 thou/uL (152-406) 06/01/24 07:08 PT 11.6 SECONDS (9.4-12.5) 05/30/24 15:48 INR 1.04 05/30/24 15:48 Sodium 137 mEq/L (136-145) 06/01/24 07:08 Potassium 4.6 mEq/L (3.5-5.1) D 06/01/24 07:08 BUN 52 mg/dL (7-18) H 06/01/24 07:08 Creatinine 9.15 mg/dL (0.55-1.02) H 06/01/24 07:08 Glucose 160 mg/dL (74-106) H 06/01/24 07:08 Magnesium 1.9 mg/dL (1.6-2.4) 06/01/24 07:08 Total Bilirubin 0.5 mg/dL (0.2-1.0) 06/01/24 07:08 AST 13 U/L (15-37) L 06/01/24 07:08 ALT 20 U/L (13-56) 06/01/24 07:08 Alkaline Phosphatase 64 U/L (45-117) 06/01/24 07:08 Home Medications: Amlodipine [Norvasc*] 10 mg PO DAILY 06/26/22 Atorvastatin Calcium [Lipitor*] 20 mg PO BEDTIME #30 tab 06/27/22 atenoloL [Tenormin] 25 mg PO M,W,F 05/07/23 Docusate [Colace Cap*] 100 mg PO BID #60 cap 07/23/23 Ubidecarenone [Coenzyme Q10*] 200 mg PO DAILY #30 cap 07/23/23 Vitamin D [Drisdol*] 50,000 unit PO Q7D@0900 #4 cap 07/23/23 levoFLOXacin [Levaquin*] 500 mg PO Q48H #4 tab 07/23/23 Physician Discharge Instructions: Ms. Chou required dialysis yesterday 05/31/2024 and she is feeling back to normal and wishes to be discharged home. Cardiology, Dr. Hurtado, recommends stopping Norvasc and metoprolol and starting Entresto and Coreg. Troponin elevation during hospitalization probably secondary to need for diuresis. Heart rate decreased to 30 with a Mobitz type 2 rhythm and an outpatient evaluation for sleep apnea is recommended. Will need to follow-up with Dr. Hurtado for an event monitor. She should also follow-up with Dr. Dunbar for reevaluation and dialysis. Diet: Low sodium Activity: Fall precautions Followup: Ariel Morfin DO [Primary Care Provider] - Pierre Dunbar DO [ACTIVE - CAN ADMIT] - Syed Hurtado MD [ACTIVE - CAN ADMIT] -
[2024-06-01 10:30] VITALS: O2SAT 96
--- NOTE | 2024-06-01 11:23 | P.PN ---
Subjective Date of Service: 06/01/24 Chief Complaint: Shortness of breath Subjective: No new changes, No C/O voiced, Tolerating diet, Ambulating, Improving Review of Systems 10-point ROS is otherwise unremarkable Physical Examination - Vital Signs Temperature: 97.5 F Blood Pressure: 112/53 Pulse: 66 Respirations: 17 Pulse Ox (%): 96 - Physical Exam General: Alert, In no apparent distress HEENT: Atraumatic, PERRLA, EOMI Neck: Supple, JVD not distended Respiratory: Clear to auscultation bilaterally, Normal air movement Cardiovascular: Regular rate/rhythm, Normal S1 S2 Gastrointestinal: Normal bowel sounds, No tenderness Musculoskeletal: No tenderness Integumentary: No rashes Neurological: Normal speech, Normal tone, Normal affect Lymphatics: No axilla or inguinal lymphadenopathy - Studies Medications List Reviewed: Yes Assessment And Plan - Current Problems (Diagnosis) (1) Acute on chronic diastolic heart failure Current Visit: Yes Status: Acute Plan: Coreg 12.5 mg po BID Entresto 24/26 mg po BID. (2) NSTEMI (non-ST elevated myocardial infarction) Current Visit: Yes Status: Acute Plan: patient is chest pain free, most likely demand ischemia for high BP and pulmonary edema. Troponin donw trended outpatient stress test (3) Mobitz type 2 second degree heart block Current Visit: Yes Status: Acute Plan: happens at night when patient is sleeping, recommend outpatient sleep study to be done through patient primary care office. follow up as outpatient for event monitor.
[2024-06-01 12:28] VITALS: BP 123/56; TEMP 97.8
--- NOTE | 2024-06-01 19:54 | P.PN ---
Date of Service: 06/01/24 Vital Signs Temp Pulse Resp BP Pulse Ox 97.8 F 69 16 123/56 L 98 06/01/24 12:00 06/01/24 14:00 06/01/24 12:00 06/01/24 14:00 06/01/24 12:00 Lab Results (last 24 hrs) 06/01/24 07:22: POC Glucose 166 H 06/01/24 07:08: Sodium 137, Potassium 4.6 D, Chloride 102, Carbon Dioxide 25, Anion Gap 14.6, BUN 52 H, Creatinine 9.15 H, Est GFR (CKD-EPI) 4 L, Glucose 160 H, Calcium 9.0 D, Magnesium 1.9, Total Bilirubin 0.5, AST 13 L, ALT 20, Alkali ne Phosphatase 64, Serum Total Protein 6.9, Albumin 2.8 L, Globulin 4.1 H, Albumin/Globulin Ratio 0.7 L 06/01/24 07:08: WBC 8.10, RBC 3.11 L, Hgb 9.6 L, Hct 29.8 L, MCV 96.0, MCH 30.9, MCHC 32.2, RDW 17.3 H, Plt Count 194, MPV 9.4, Neutrophils % 60.8, Lymphocytes % 23.4, Monocytes % 14.3 H, Eosinophils % 1.2, Basophils % 0.3, Absolute Neutrophils 4.9, Absolute Lymphocytes 1.9, Absolute Monocytes 1.2, Absolute Eosinophils 0.1, Absolute Basophils 0.0 06/01/24 05:02: Troponin I High Sens 90.2 H* 05/31/24 21:10: Troponin I High Sens 132.8 H* 05/31/24 20:57: POC Glucose 159 H Microbiology Results 05/30/24 16:30 Blood - Blood Aerobic Blood Culture - Preliminary No growth in 24 hours. 05/30/24 16:30 Blood - Blood Anaerobic Blood Culture - Preliminary No growth in 24 hours. 05/30/24 15:48 Blood - Blood Aerobic Blood Culture - Preliminary No growth in 24 hours. 05/30/24 15:48 Blood - Blood Anaerobic Blood Culture - Preliminary No growth in 24 hours. 05/30/24 15:48 Nasopharnyx Influenza Type A Antigen Screen - Final 05/30/24 15:48 Nasopharnyx Influenza Type B Antigen Screen - Final Assessment/ Plan: Nephrology No dyspnea No chest pain No acute events overnight Vitals, medications, blood work and imaging reviewed in the chart General: In no apparent distress, Oriented x3, Cooperative HEENT: Atraumatic Neck: Supple Respiratory: Diminished Cardiovascular: Regular rate/rhythm, Edema Gastrointestinal: Soft and benign, Non-distended Musculoskeletal: No clubbing, No contractures Integumentary: No rashes, No cyanosis Neurological: Normal speech Laboratory Data (last 24 hrs) 05/30/24 05/30/24 05/30/24 15:48 15:48 15:48 WBC 8.60 Hgb 10.2 L Hct 31.3 L Plt Count 230 PT 11.6 INR 1.04 Sodium 135 L Potassium 4.9 BUN 69 H Creatinine 10.80 H Glucose 170 H Magnesium 1.6 Total Bilirubin 0.4 AST 21 ALT 28 Alkaline Phosphatase 75 Imagings Data: darrenrice LEFT VENTRICULAR WALL MOTION: NORMAL DOPPLER/COLOR FLOW: SEE BELOW COMMENTS: 1. NORMAL LEFT VENTRICULAR EJECTION FRACTION 60-65% 2. NORMAL WALL MOTION 3. MILD MITRAL REGURGITATION, TRICUSPID [id number] EXAMINATION: ONE VIEW CHEST XR CLINICAL INDICATION: Female, 79 years old.,DYSPNEA TECHNIQUE: Frontal chest projection is submitted. Examination is limited by patient positioning and technique. COMPARISON: 09/10/2023 FINDINGS: Improving patchy mid to lower lung airspace opacities and central interstitial prominence. Suggested small left more than right pleural effusions. No pneumothorax. The heart is normal in size. IMPRESSION: Partial improvement of the bilateral airspace opacities as above, which again may reflect pulmonary edema or multifocal pneumonia. Conclusions/Impression: ESRD on HD Hyponatremia Hyperkalemia -HD TIW HTN with CKD/ CHF -Continue Entresto -Continue Coreg Diastolic CHF, A/C -HD with UF -Low sodium diet -Continue Entresto Anemia in CKD -Retacrit prn CKD MBD -Continue Calcitriol Case reviewed with Dr. Scherer
== END 2024-06-01 17:04 | disposition home health service (06) | DRG 280 ==
LOC: ER 15:14 → INTOOBSV 18:35 → ERHOLD 18:35 → 2ND 19:42 → OBSVTOIN 06-01 11:47
PROVIDERS: ADMIT Hospitalist; ATTEND Hospitalist
PROC: 5A1D70Z Performance of Urinary Filtration, Intermittent, Less than 6 Hours Per Day (ICD-10-PCS; principal; 2024-05-31)
DX: I13.2 Hypertensive heart and chronic kidney disease with heart failure and with stage 5 chronic kidney disease, or end stage renal disease (principal); I50.33 Acute on chronic diastolic (congestive) heart failure; I21.A1 Myocardial infarction type 2; N18.6 End stage renal disease; E87.1 Hypo-osmolality and hyponatremia; E11.22 Type 2 diabetes mellitus with diabetic chronic kidney disease; D63.1 Anemia in chronic kidney disease; M10.9 Gout, unspecified; E87.5 Hyperkalemia; I44.1 Atrioventricular block, second degree; E78.5 Hyperlipidemia, unspecified; R00.1 Bradycardia, unspecified; R79.89 Other specified abnormal findings of blood chemistry; Z99.2 Dependence on renal dialysis; Z88.6 Allergy status to analgesic agent; Z88.5 Allergy status to narcotic agent; Z90.710 Acquired absence of both cervix and uterus
CPT/HCPCS: 36415; 71045; 80048; 80053; 80076; 82947; 83605; 83735; 83880; 84484; 85025; 85610; 87040; 87340; 87804; 87811; 90935; 93005; 94640; 99285; G0378; J0360; J0612; J1644; J1940; J2405; J2765; J7613

== ENCOUNTER 2024-06-13 07:35 | Emergency (ER) | payer OTHER ==
--- OUTSIDE RECORDS SUMMARY | 2024-06-13 07:38 | XMS REPORT | Continuity of Care Document ---
Author Name Unknown Address [address] [place] [address] [facility] Address [address] [place] [address] Care Team Providers Care Glass Beveller Name Role Phone KOSTA LEO Attending Clinician Unavailable ALLAN JOLLY Attending Clinician Unavailable Julianna Schaffer Attending Clinician Unavailable JULES DUNN Attending Clinician Unavailable ADRIENNE SOTO Attending Clinician Unavailable EVARISTO OSUNA Attending Clinician Unavail able Julianna Schaffer Admitting Clinician Unavailable Payers Payer Name Policy Type Policy Number Effective Date Expirati on Date Source [facility] CLASSIC NO PREMIUM [id number] 2023 00:00:00 MEDICARE PART A \T\ B [id number] 2010 00:00:00 Problems Condition Name Condition Details Condition Category Status Onset Date Resolution Date Last Treatment Date Treating Clinician Comments Source History of cataract History of cataract Disease Active 11-10 00:00: 00 Adele galvan Osteopenia of multiple sites Osteopenia of multiple sites Disease Active 09-25 00:00: 00 Adele galvan History of pneumonia History of pneumonia Disease Active 2022-08 00:00: 00 Adele Seybold - Externa l PVD (periphera l vascular disease) PVD (periphera l vascular disease) Disease Active 2022-08 0 00:00: 00 Adele Bahena - Externa l Risk for falls Risk for falls Disease Active 2022-08 0 00:00: 00 Adele Bahena - Externa l Well adult exam Well adult exam Disease Active 2022-08 0 00:00: 00 Adele Bahena - Externa l Mixed hyperlipid emia Mixed hyperlipid emia Disease Active 2022-08 0 00:00: 00 Adele Bahena - Externa l 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, 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, respirator y failure (multi HCC) Disease Active 2022-08 0 00:00: 00 Adele Bahena - Externa l HTN (hypertens ion) HTN (hypertens ion) Disease Active 05-01 00:00: 00 Adele Bahena - Externa mandy GERD (gastroeso phageal reflux disease) GERD (gastroeso phageal reflux disease) Disease Active 05-01 00:00: 00 Adele Bahena - Externa l Chronic respirator y failure with hypoxia, on home O2 therapy (multi HCC) Chronic respirator y failure with hypoxia, on home O2 therapy (multi HCC) Disease Active 05-01 00:00: 00 Adele Bahena - Externa l 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 Disease Active 05-01 00:00: 00 Adele Bahena - Externa l ESRD (end stage renal disease) on dialysis (multi HCC) ESRD (end stage renal disease) on dialysis (multi HCC) Disease Active 05-01 00:00: 00 Adele Bahena - Externa l Carotid stenosis, bilateral Carotid stenosis, bilateral Disease Active Adele Bahena - Externa l Allergies, Adverse Reactions, Alerts Allergy Name Allergy Type Status Severity Reaction(s) Onset Date Inactive Date Treating Clinician Comments Source No Known Allergie s DA Active U 03-23 00:00: 00 [facility] Oxycodon e-Aspiri n Propensi ty to adverse reaction s Active Hallucinatio ns 11-14 00:00: 00 percodan Adele Trevizoold - Externa l OXYCODON E HCL-OXYC ODONE- A DRUG Active High Hallucinates 11-14 00:00: [address] [facility] Calcium Acetylsa licylate Propensi ty to adverse reaction s Active 04-22 00:00: 00 Other reaction( s): hallucina tion, Rash Adele Trevizoold - Externa l Oxycodon e Propensi ty to adverse reaction s Active 04-22 00:00: 00 Other reaction( s): hallucina tion, Rash Adele Sebishopold - Externa l Social History Social Habit Start Date Stop Date Quantity Comments Source Gender identity Sophie Bahena - External Sexual orientation Justin Bahena - External ASSERTION Not Adele Bahena [...] A DAY NEEDED FOR GOUT Adele Backrobert Cummingsadelia mandy Atorvastati n Calcium 10 MG oral Tablet 05-13 09:01: 42 Yes [id number] 10mg QD Take 1 tablet (10 mg [...] 02-09 08:29: 34 02-09 00:00 :00 No [id number] 81mg Take 1 tablet (81 mg total) by mouth daily. Adele galvan Colchicine (Colcrys) 0.6 MG oral Tablet 02-09 08:24: 06 Yes TAKE 1 TABLET BY MOUTH 4 TIMES A DAY NEEDED FOR GOUT Adele Shruti galvan Atorvastati n Calcium 10 MG oral Tablet 02-09 08:24: 06 Yes [id number] 10mg Take 1 tablet (10 mg total) by mouth nightly. Adele galvan Calcium Acetate, Phos Binder, 667 MG oral Tablet 02-09 08:24: 06 Yes 1{tbl} Take 1 tablet by mouth 3 times daily (before meals). Adele galvan Calcitriol 0.25 MCG oral Capsule 02-09 08:24: 06 Yes .25ug Take 1 capsule (0.25 mcg total) by mouth three times a week On dialysis days. Adele Joselineezekiel Brock Lester l Colchicine (Colcrys) 0.6 MG oral Tablet 11-24 10:41: 33 Yes TAKE 1 TABLET BY MOUTH 4 TIMES A DAY NEEDED FOR GOUT Adele Backbishopezekiel Batista l Aspirin 81 MG oral Tablet Delayed Response 11-24 10:41: 33 Yes [id number] 81mg Take 1 tablet (81 mg total) by mouth daily. Adele Shruti Gutiérrez Externa l Atorvastati n Calcium 10 MG oral Tablet 11-24 10:41: 33 Yes [id number] 10mg Take 1 tablet (10 mg total) by mouth nightly. Adele Shruti Gutiérrez Externa l Calcium Acetate, Phos Binder, 667 MG oral Tablet 11-24 10:41: 33 Yes 1{tbl} Take 1 tablet by mouth 3 times daily (before meals). Adele Shruti Batista l Calcitriol 0.25 MCG oral Capsule 11-24 10:41: 33 Yes .25ug Take 1 capsule (0.25 mcg total) by mouth three times a week On dialysis days. Adele Shruti galvan Colchicine (Colcrys) 0.6 MG oral Tablet 11-10 09:01: 31 Yes TAKE 1 TABLET BY MOUTH 4 TIMES A DAY NEEDED FOR GOUT Adele Backrobert Brock Lester galvan Aspirin 81 MG oral Tablet Delayed Response 11-10 09:01: 31 Yes [id number] 81mg Take 1 tablet (81 mg total) by mouth daily. Adele Shruti Batista l Atorvastati n Calcium 10 MG oral Tablet 11-10 09:01: 31 Yes [id number] 10mg Take 1 tablet (10 mg total) by mouth nightly. Adele Gutéirrez Externa l Calcium Acetate, Phos Binder, 667 MG oral Tablet 11-10 09:01: 31 Yes 1{tbl} Take 1 tablet by mouth 3 times daily (before meals). Adele Gutiérrez Externa l Calcitriol 0.25 MCG oral Capsule 11-10 09:01: 31 Yes .25ug Take 1 capsule (0.25 mcg total) by mouth three times a week On dialysis days. Adele galvan Famotidine 40 MG oral Tablet 08 00:00: 00 Yes 40mg Take 1 tablet (40 mg total) by mouth at bedtime. Adele galvan Benzonatate (Tessalon Perles) 100 MG oral Capsule 00:00: 00 11-10 00:00 :00 No [id number] 100mg [id number] 3D Take 1 capsule (100 mg total) by mouth 3 times daily as needed for cough. Adele galvan Calcitriol 0.25 MCG oral Capsule 09-25 11:12: [...] Tablet Delayed Response 09-25 10:58: 01 Yes [id number] 81mg Take 1 tablet (81 mg total) by mouth daily. Adele Batista l Atorvastati n Calcium 10 MG oral Tablet 09-25 10:58: 01 Yes [id number] 10mg Take 1 tablet (10 mg total) by mouth nightly. Adele Batista l Colchicine (Colcrys) 0.6 MG oral Tablet 2022-08 11:49: 06 Yes TAKE 1 TABLET BY MOUTH 4 TIMES A DAY NEEDED FOR GOUT Adele Batista l Aspirin 81 MG oral Tablet Delayed Response 2022-08 11:49: 06 Yes [id number] 81mg Take 1 tablet (81 mg total) by mouth daily. Adele Cummingsa l Atorvastati n Calcium 10 MG oral Tablet 2022-08 11:49: 06 Yes [id number] 10mg Take 1 tablet (10 mg total) by mouth nightly. Adele galvan Albuterol HFA 108 (90 Base) MCG/ACT IN AERS 2022-08 00:00: 00 Yes [id number] 2{puff} Q.25D Inhale 2 puffs into the [...] Tablet Delayed Response 2022-08 10:32: 53 Yes [id number] 81mg Take 1 tablet (81 mg total) by mouth daily. Adele galvan Atorvastati n Calcium 10 MG oral Tablet 2022-08 010 10:32: 53 Yes [id number] 10mg Take 1 tablet (10 mg total) [...] Adele galvan Atenolol 25 MG oral Tablet 9-07 00:00: 00 Yes [id number] 1 tablet by mouth on FRIDAY, FRIDAY [...] blood pressure 2024-02-10 13:22:00 143 mm[Hg] Adele sullivan - External Diastolic blood pressure 2024-02-10 13:22:00 62 mm[Hg] Adele Seybo ld - External Heart rate 2024-02-10 13:22:00 81 [...] External Heart rate 2023-11-11 13:58:00 72 /min Tyese y Seybold - External Body temperature 2023-11-11 [...] External Heart rate 2023-09-25 16:56:00 69 /min Tyese y Seybold - External Body temperature 2023-09-25 [...] Pulse oximetry 2023-06-03 15:07:00 100 /min Adele Backybo ld - External Systolic blood pressure 2023-05-29 [...] External BMI 2023-05-29 18:15:00 29.08 kg/m2 Sophie ey Seybold - External Oxygen saturation in Arterial blood by Pulse oximetry 2023-05-29 18:15:00 100 /min Adele Backybo ld - External Systolic blood pressure 2023-05-01 15:54:00 99 mm[Hg] Adele Seybo ld - External Diastolic blood pressure 2023-05-01 15:54:00 54 mm[Hg] Adele Backybo ld - External Heart rate 2023-05-01 15:54:00 [...] Pulse oximetry 2023-05-01 15:54:00 100 /min Adele sullivan - External Procedures Procedure Date / Time Performed Performing Clinicia n Source MARIAELENAAFLO 2023-06-03 15:13:24 [facility] - External Encounters Start Date/Time End Date/Time Encounter Type Admission Type Attending [facility] Care Department Encounter ID Source 2024-06-15 16:30:00 2024-06-15 16:30:00 Outpatient AHMETKOSTA ADELE OSORIO [id number] Adele ybezekiel 2024-05-28 00:00:00 2024-05-28 00:00:00 Outpatient ALLAN JOLLY [id number] Adele robert 2024-05-18 00:00:00 2024-05-18 00:00:00 Outpatient ALLAN JOLLY [id number] Adele ybezekiel 2024-05-14 00:00:00 2024-05-14 00:00:00 Outpatient ALLAN JOLLY [id number] Adele ybezekiel 2024-05-13 09:15:00 2024-05-13 09:15:00 Outpatient ALLAN JOLLY [id number] Adele ezekiel 2024-05-11 05:12:00 2024-05-11 05:12:00 Outpatient Julianna Aguilar [facility] ENDO [id number] [facility] 2024-05-07 00:00:00 2024-05-07 00:00:00 Outpatient ALLAN JOLLY [id number] [facility] 2024-03-30 06:07:00 2024-03-30 06:07:00 Outpatient Julianna Aguilar [facility] ENDO [id number] 78 [facility] 2024-02-16 00:00:00 2024-02-16 00:00:00 Outpatient ALLAN JOLLY [id number] [facility] 2024-02-12 00:00:00 2024-02-12 00:00:00 Outpatient ALLAN JOLLY [id number] [facility] 2024-02-10 08:15:00 2024-02-10 08:15:00 Outpatient PREZAS, ALLAN OSORIO ADELE [id number] Adele Seybold 2024-01-01 11:20:00 2024-01-01 11:20:00 Outpatient VU, JULES ADELE OSORIO [id number] Adele Seybold 2023-12-25 09:00:00 2023-12-25 09:00:00 Outpatient PREZAS, ALLAN OSORIO ADELE [id number] Adele Seybold 2023-12-02 11:20:00 2023-12-02 11:20:00 Outpatient VU, JULES ADELE OSORIO [id number] Adele Seybold 2023-11-25 11:30:00 2023-11-25 11:30:00 Outpatient ADELE ADELE [id number] Adele Seybold 2023-11-25 10:40:00 2023-11-25 10:40:00 Outpatient VU, JULES ADELE OSORIO [id number] Adele Seybold 2023-11-18 00:00:00 2023-11-18 00:00:00 Outpatient PREZAS, ALLAN ADELE OSORIO [id number] Adele Seybold 2023-11-11 09:00:00 2023-11-11 09:00:00 Outpatient PREZAS, ALLAN ADELE OSORIO [id number] Adele Seybold 2023-11-06 00:00:00 2023-11-06 00:00:00 Outpatient PREZAS, ALLAN ADELE OSORIO [id number] Adele Seybold 2023-10-23 00:00:00 2023-10-23 00:00:00 Outpatient PREZAS, ALLAN ADELE OSORIO [id number] Adele Seybold 2023-10-21 00:00:00 2023-10-21 00:00:00 Outpatient PREZAS, ALLAN ADELE OSORIO [id number] Adele Seybold 2023-09-25 10:30:00 2023-09-25 10:30:00 Outpatient PREZAS, ALLAN OSORIO [id number] Adele Seybold 2023-09-04 09:00:00 2023-09-04 09:00:00 Outpatient ALLAN JOLLY [id number] Adele Bahena 2023-08-28 14:00:00 2023-08-28 14:00:00 Outpatient ADELE OSORIO [id number] Adele Bahena 2023-08-28 13:30:00 2023-08-28 13:30:00 Outpatient ADELE OSORIO [id number] Adele Bahena 2023-08-28 00:00:00 2023-08-28 00:00:00 Outpatient ALLAN JOLLY [id number] Adele Bahena 2023-08-19 00:00:00 2023-08-19 00:00:00 Outpatient ALLAN JOLLY [id number] Adele Bahena 2023-08-12 11:30:00 2023-08-12 11:30:00 Outpatient ALLAN JOLLY ADELE [id number] Adele Bahena 2023-06-03 10:00:00 2023-06-03 10:00:00 Outpatient ALLAN JOLLY ADELE [id number] Adele Bahena 2023-05-29 13:30:00 2023-05-29 13:30:00 Outpatient ADRIENNE SOTO ADELE [id number] Adele Bahena 2023-05-01 10:45:00 2023-05-01 10:45:00 Outpatient ALLAN JOLLY ADELE [id number] Adele Bahena 2018-03-12 09:30:00 2018-03-12 10:31:36 Outpatient EVARISTO ORTIZ [facility] [id number] [facility] Results Test Description Test Time Test Comments Results Result Co mments Source BASIC METABOLIC [id number] 14:44:00* Test Item Value Reference Range Interpretation [...] calculation forGFR is based on the CKD-EPI (2020) calculation. This formulais race indifferent and is the recommended formula for GFRby the National Kidney Foundation for Adults.The GFR will not calculate if the sex is unknown or if thepatient's age is <18 years. CREATININE (test code = CREAT) 9.3 MG/DL 0.6-1.0 H CALCIUM (test code = CA) 9.7 MG/DL 8.5-10.1 N CBC W/O [id number] 14:21:00* Test Item Value Reference Range Interpretation [...] ode = MPV) 9.90 fL 7.0-10.5 N [id number] 17:28:00* Test Item Value Reference Range Interpretation Comme nts SURGICAL (test code = SR) RUN DATE: 03/31/24 [facility] PAGE 1 RUN TIME: 1727 Specimen Inquiry RUN USER: INTERFACE PATIENT: TINA SUAREZ LOC: JACKLYN U #: [id number] AGE/SX: 78/F ROOM: RE03/30/24REG DR: Julianna Schaffer MD : 45 BED: DIS: STATUS: [facility] TLOC: SPEC #: [id number] RECD: 03/30/24 STATUS: MANNY REQ #: [id number] KINSEY: 03/30/[address] [facility] [address]: Julianna Schaffer MD ENTERED: 03/30/24 SP TYPE: SURGICAL OTHR DR: ORDERED: 45376/4, ANATOMIC SPEC, SPECIMEN TRACK PROCEDURES: [id number] (03/30/24) SPECIMEN TRACK (03/30/24) TISSUES: A. DUODENUM [...] CONTINUED ON NEXT PAGE RUN DATE: 03/31/24 [facility] PAGE 2 RUN TIME: 1728 Specimen Inquiry RUN USER: INTERFACE SPEC #: [id number] PATIENT: TINA SUAREZ #[id number] (Continued) GROSS DESCRIPTION (Continued) D. Distal esophagus. It consists of a single tissue fragment measuring 5 mm, entirelysubmitted as D1. Technical tissue processing and slide preparation [id number] , [place] [address] MICROSCOPIC DESCRIPTION Microscopic examination is performed and the findings are incorporated into the finaldiagnosis. Please see diagnosis for findings. Signed SIGNATURE ON FILE Crista Baldwin 03/31/24 1728 END OF REPORT BASIC METABOLIC [id number] 08:21:00* Test Item Value Reference Range Interpretation [...] CA) 9.2 MG/DL 8.5-10.1 N BASIC METABOLIC [id number] 09:37:00* Test Item Value Reference Range Interpretation [...] CA) 9.8 MG/DL 8.5-10.1 N CBC W/O [id number] 09:08:00* Test Item Value Reference Range Interpretation [...] ode = MPV) 10.20 fL 7.0-10.5 N [id number] 15:14:01* Test Item Value Reference Range Interpretation Comme nts QuantaFlo left side (test code = 83526-3F) See_Comment [Automate d message] The system which generated this result transmitted reference range: 1.40 - 0.90 NA. The reference range was not used to interpret this result as normal/abnormal. QuantaFlo right side (test code = 92815-2S) See_Comment L Exercise Modality: At Restboth feet retested Normal - 1.40 - 1.00Borderline - 0.99 - 0.90Mild - 0.89 - 0.60Moderate - 0.59 - 0.30Severe - 0.29 - 0.00 [Automated message] The system which generated this result transmitted reference range: 1.40 - 0.90 NA. The reference range was not used to interpret this result as normal/abnormal. Lab Interpretation (test code = 55912-7) Abnormal Adele Bahena - External Notes Date/Time Note Provider Source 2024-05-11 08:40:00 [facility] ([facility] Post Anesthesia Evaluation REPORT#:[id number] REPORT STATUS: Signed REPORT INITIALIZATION DATE:05/11/24 TIME:0840 PATIENT: TINA SUAREZ UNIT #: [id number] ROOM/BED: : 45 AGE: 79 SEX: F [...] Pulse 65 05/11 825 Resp 13 05/11 08 O2 Delivery Simple mask 05/11 806 O2 Flow Rate 3 05/11 806 Temp 36.2 05/11 08 Cardiovascular: no change Respiratory/Airway: respiratory system stable Pain: adequately controlled Hydration: adequate Temp status: normothermic Presence of N/V: no Anesthesia complications: no at 0840 RPT #: [id number] END OF REPORT [facility] 2024-03-31 08:32:00 [id number] [address] PATIENT NAME: TINA SUAREZ ADMIT DATE: 03/30/24 ACCOUNT NO: [id number] ROOM NO: AGE: 79 REPORT TYPE: OPERATIVE REPORT SEX: F ADMITTING PHYSICIAN: ATTENDING PHYSICIAN: Julianna Schaffer MD OPERATION DATE: 03/30/2024 PROCEDURES: 1. EGD with biopsy. 2. Administration of anesthesia by Department of Anesthesia. INDICATIONS: Persistent dyspepsia, abdominal pain. SURGEON: Julianna Schaffer MD ELECTRONICS COMPUTER MECHANIC: PREOPERATIVE DIAGNOSIS: POSTOPERATIVE DIAGNOSIS: See below. COMPLEXITY: [...] Date Transcribed: 03/31/2024 10:29:16 JUNG/BRIAN/JANKI Receipt ID: [id number] CC: Authenticated by Julianna Schaffer MD On 04/28/2024 09:59:06 AM at 0959 PATIENT NAME: TINA SUAREZ [facility] 2024-03-30 09:17:00 [facility] ([facility]) Post Anesthesia Evaluation REPORT#:[id number] REPORT STATUS: Signed REPORT INITIALIZATION DATE:03/30/24 TIME:916 PATIENT: TINA SUAREZ UNIT #: [id number] ROOM/BED: : 45 AGE: 78 SEX: F ATTEND: Julianna Schaffer MD ADM AUTHOR: Ling Harry MD REPT SERVICE DT/TIME: 03/30/24 0917 * ALL edits or amendments must be [...] Pulse 78 03/30 0910 Resp 17 03/30 0910 Temp 36.3 03/30 0900 Cardiovascular: CV system stable, vital signs stable Respiratory/Airway: respiratory system stable, maintains without support Pain: adequately controlled Hydration: adequate Temp status: normothermic Presence of N/V: no Anesthesia complications: no at 0917 RPT #: [id number] END OF REPORT [facility] 2023-11-11 09:01:33 Chief Complaint Patient presents with Follow-up 3 month follow up Kayla Rosenthal MA II [facility]
[2024-06-13] MEDS ORDERED: FENTANYL CITR 100 MCG/2 ML ONE (08:00)
[2024-06-13] MEDS ORDERED: DIAZEPAM 5 MG TABLET ONE (08:00)
[2024-06-13] MEDS ORDERED: dexAMETHasone 10 MG/ML VIAL ONE (08:00)
[2024-06-13] MEDS ORDERED: ONDANSETRON 4 MG/2 ML VIAL ONE (08:00)
[2024-06-13] MEDS ORDERED: NA CHLORIDE 0.9% 0 ML ONE (08:01)
[2024-06-13 08:26] LABS: Absolute Basophils 0.1 K/uL (0-0.5); Absolute Eosinophils 0.1 K/uL (0-0.5); Absolute Lymphocytes (CBC) 2.8 K/uL (0.7-4.9); Absolute Monocytes 0.9 K/uL (0.1-1.3); Absolute Neutrophil 6.1 K/uL (1.8-8.0); Basophils % 0.9 % (0-1.3); Eosinophils % 1.4 % (0-4.4); Hematocrit 30.6 % (36.0-45.0); Hemoglobin 10.1 g/dL (12.0-15.0); Lymphocytes % 27.9 % (15.3-44.8); MCH 31.7 pg (27.0-35.0); MCHC 33.1 g/dL (32.0-36.0); MCV 95.7 fL (80-100); MPV 8.7 fL (7.6-11.3); Monocytes % 9.4 % (3.3-12.3); Neutrophils % 60.4 % (41.7-73.7); Nucleated Red Blood Cells % 0.1 % (0-0); Platelets 223 thou/uL (152-406)
--- NOTE | 2024-06-13 08:39 | RAD REPORT ---
EXAMINATION: CT CERVICAL SPINE WITHOUT CONTRAST CLINICAL INDICATION: Female, 79 years old. PAIN TECHNIQUE: Axial CT images through the cervical spine were obtained without intravenous contrast. Sag ittal and coronal reformatted images were created from the data set. One or more of the following dose reduction techniques were used: Automated exposure control, adjustment of the mA and/or kV accor ding to patient size, and/or iterative reconstruction. Unless otherwise specified, incidental findings do not require dedicated imaging follow-up. [id number]. COMPARISON: No prior exam. FINDINGS: ALIGNMENT: Reversal of the normal cervical lordosis. Approximately 2 mm anterolisthesis of C3 on C4 i s noted which is likely related to underlying degenerative changes. BONE: Vertebral body heights are maintained. No aggressive osseous lesions. DISCS: Severe disc height loss is present at C3-4, C4-5, and to a lesser extent C5-6. There is eviden ce of bilateral neural foraminal narrowing is at least moderate bilaterally at C3-4 C4-5 and C5-6. . LEVELS: Neural foraminal narrowing is noted above. No high-grade central spinal stenosis. SOFT TISSUE: No significant abnormalities in the soft tissue of the neck. The visualized lung apices are clear. IMPRESSION: No acute cervical spine abnormalities. Cervical spondylosis with evidence of bilateral neural foramin al narrowing. No high-grade central spinal stenosis.
[2024-06-13 08:48] LABS: Albumin 3.2 g/dL (3.4-5.0); Albumin/Globulin Ratio 0.8 (1.1-1.8); Bilirubin Total 0.4 mg/dL (0.2-1.0); Globulin 4.1 g/dL (2.3-3.5); Protein, Total 7.3 g/dL (6.4-8.2)
--- NOTE | 2024-06-13 08:54 | ER ---
Nurse's Notes [facility] Name: Kevin Chou Age: 79 yrs Sex: Female : 1945 Arrival Date: 06/13/2024 Time: 07:35 Bed 13 Private MD: Diagnosis: Spondylolysis, cervical region;Cervical disc disorder with radiculopathy, unspecified cervical region;Unspecified symptoms and signs involving the musculoskeletal system;Dependence on renal dialysis Presentation: 06/13 07:52 Chief complaint: Patient states: Neck pain and stiffness for 2 days. No fever or ll1 trauma. Coronavirus screen: Client denies travel out of the [place] in the last 14 days. At this time, the client does not indicate any symptoms associated with coronavirus-19. Ebola Screen: Patient denies travel to an Ebola-affected area in the 21 days before illness onset. Initial Sepsis Screen: Does the patient meet any 2 criteria? No. Patient's initial sepsis screen is negative. Does the patient have a suspected source of infection? No. Patient's initial sepsis screen is negative. Risk Assessment: Do you want to hurt yourself or someone else? Patient reports no desire to harm self or others. Onset of symptoms was June 12, 2024. 07:52 Method Of Arrival: Wheelchair ll1 07:52 Acuity: GRETA 3 ll1 Triage Assessment: 07:53 General: Appears uncomfortable, Behavior is calm, cooperative, appropriate for age. ll1 Pain: Complains of pain in neck Pain currently is 10 out of 10 on a pain scale. Musculoskeletal: Reports pain in neck. Historical: - Allergies: 07:51 Aspirin; ll1 07:51 Percodan; ll1 07:51 Oxycodone HCl; ll1 - PMHx: 07:51 diabetes mellitus; DIALYSIS MWF; Hypertension; kidney disease; ll1 - PSHx: 07:51 Left arm fistula; ll1 - Immunization history:: Adult Immunizations up to date. - Social history:: Smoking status: Patient denies any tobacco usage or history of. - Family history:: not pertinent. Screenin:00 [facility] ED Fall Risk Assessment (Adult) History of falling in the last 3 months, aa5 including since admission No falls in past 3 months (0 pts) Confusion or Disorientation No (0 pts) Intoxicated or Sedated No (0 pts) Impaired Gait No (0 pts) Mobility Assist Device Used No (0 pt) Altered Elimination No (0 pt) Score/Fall Risk Level 0 - 2 = Low Risk Oriented to surroundings, Maintained a safe environment, Educated pt \\T\\ family on fall prevention, incl call for assistance when getting out of bed. Abuse screen: Denies threats or abuse. Nutritional screening: No deficits noted. Tuberculosis screening: No symptoms or risk factors identified. Assessment: 08:00 General: Appears uncomfortable, Behavior is calm, cooperative. Pain: Complains of pain aa5 in neck Pain radiates to laith shoulders Pain currently is 10 out of 10 on a pain scale. Quality of pain is described as sharp, shooting, Pain began 1-2 days ago Is continuous, Aggravated by "moving neck". Neuro: Level of Consciousness is awake, alert, obeys commands, Oriented to person, place, time, situation. Cardiovascular: Dialysis shunt: in the left arm, with palpable thrill, with auscultated bruit, with no erythema, with no edema, no bleeding noted. Respiratory: Airway is patent Respiratory effort is even, unlabored, Respiratory pattern is regular, symmetrical. GI: No signs and/or symptoms were reported involving the gastrointestinal system. : No signs and/or symptoms were reported regarding the genitourinary system. EENT: No signs and/or symptoms were reported regarding the EENT system. Derm: Skin is dry, Skin is normal, Skin temperature is warm. Musculoskeletal: Reports pain in neck. 08:46 Reassessment: Pt sleeping, easy to awaken to verbal stimuli, states feeling better, aa5 pt's family at bedside. . 09:29 Reassessment: Patient states feeling better. Patient states symptoms have improved. aa5 General: Appears comfortable, Behavior is calm, cooperative. Neuro: Level of Consciousness is awake, alert, obeys commands, Oriented to person, place, time, situation. Respiratory: Airway is patent Respiratory effort is even, unlabored, Respiratory pattern is regular, symmetrical. Derm: Skin is dry, Skin is normal, Skin temperature is warm. Vital Signs: 07:52 BP 195 / 81; Pulse 83; Resp 18; Temp 98; Pulse Ox 100% on R/A; Weight 60.78 kg; Height ll1 4 ft. 11 in. ; Pain 10/10; 08:05 BP 173 / 70; Pulse 77; Resp 18 S; Pulse Ox 100% on R/A; aa5 08:41 BP 148 / 61; Pulse 77; Resp 16 S; Pulse Ox 94% on R/A; aa5 09:15 BP 148 / 63; Pulse 76; Resp 14 S; Temp 97.8(TE); Pulse Ox 96% on R/A; Pain 5/10; aa5 07:52 Body Mass Index 27.06 (60.78 kg, 149.86 cm) ll1 07:52 Pain Scale: Adult ll1 09:15 Pain Scale: Adult aa5 ED Course: 07:38 Patient arrived in ED. mr 07:39 Brett Lennon MD is Attending Physician. addie 07:41 Arm band placed on Patient placed in an exam room, on a stretcher. ll1 07:43 Anaya Sarah, ANYA is Primary Nurse. aa5 07:53 Triage completed. ll1 08:00 Patient has correct armband on for positive identification. Bed in low position. Call aa5 light in reach. Side rails up X2. Adult w/ patient. Pulse ox on. NIBP on. 08:10 Initial lab(s) drawn, by me, sent to lab. Inserted saline lock: 22 gauge in right aa5 wrist, using aseptic technique. Blood collected. Flushed with 10 mL NS. 08:27 CT C Spine In Process Unspecified. EDMS 08:42 No provider procedures requiring assistance completed. aa5 09:29 IV discontinued, intact, bleeding controlled, No redness/swelling at site. Pressure aa5 dressing applied. Administered Medications: 08:05 Drug: Diazepam PO 5 mg PO once Route: PO; aa5 08:45 Follow up: Response: No adverse reaction; Pain is decreased aa5 08:10 Drug: fentaNYL (PF) IVP 25 mcg IVP once Route: IVP; Site: right wrist; aa5 08:45 Follow up: Response: No adverse reaction; Pain is decreased aa5 08:10 Drug: Ondansetron IVP 4 mg IVP once; over 2 minutes Route: IVP; Site: right wrist; aa5 08:45 Follow up: Response: No adverse reaction aa5 08:14 Drug: Decadron - Dexamethasone IVP 10 mg IVP once Route: IVP; Site: right wrist; aa5 08:45 Follow up: Response: No adverse reaction aa5 08:45 Not Given (Physician Discretion): fentanyl (pf)25 mcg IVP once aa5 09:36 Not Given (Physician Discretion): ns 0.9% 1000 ml IV at 125 ml/hr continuous aa5 Medication: 08:42 VIS not applicable for this client. aa5 Outcome: 08:53 Discharge ordered by . addie 09:29 Discharged to home via wheelchair, with family, aa5 09:29 Condition: improved 09:29 Discharge instructions given to patient, Instructed on discharge instructions, follow up and referral plans. medication usage, Demonstrated understanding of instructions, follow-up care, medications, Prescriptions given X 3, 09:30 Patient left the ED. aa5 Signatures: Dispatcher [employer] EDMS Brett Lennon MD MD cha Rivera, Mary, Reg Reg SarahAnaya, RN RN aa5 Oswald Pratt RN RN ll1 Corrections: (The following items were deleted from the chart) 09:49 09:48 Patient left the ED. aa5 aa5
--- NOTE | 2024-06-13 08:54 | EDPHYS ---
Physician Documentation [facility] Name: Kevin Chou Age: 79 yrs Sex: Female : 1945 Arrival Date: 06/13/2024 Time: 07:35 Bed 13 Private MD: ED Physician Brett Lennon HPI: 06/13 08:41 This 79 yrs old Black Female presents to ER via Wheelchair with complaints of Stiff addie Neck. 08:41 The patient or guardian complains of decreased range of motion, pain. The symptoms are addie located diffusely. Onset: The symptoms/episode began/occurred yesterday, last night. Context: The problem was sustained at an unknown location, The neck injury/problem resulted from from unknown cause. Associated signs and symptoms: The patient has no apparent associated signs or symptoms. The pain does not radiate. Modifying factors: The symptoms are alleviated by remaining still, the symptoms are aggravated by movement. Severity of symptoms: At their worst the symptoms were moderate, in the emergency department the symptoms are unchanged. The patient has experienced similar episodes in the past, a few times. Historical: - Allergies: 07:51 Aspirin; ll1 07:51 Percodan; ll1 07:51 Oxycodone HCl; ll1 - PMHx: 07:51 diabetes mellitus; DIALYSIS MWF; Hypertension; kidney disease; ll1 - PSHx: 07:51 Left arm fistula; ll1 - Immunization history:: Adult Immunizations up to date. - Social history:: Smoking status: Patient denies any tobacco usage or history of. - Family history:: not pertinent. ROS: 08:41 Constitutional: Negative for fever, chills, and weight loss, Eyes: Negative for injury, addie pain, redness, and discharge, ENT: Negative for injury, pain, and discharge, Cardiovascular: Negative for chest pain, palpitations, and edema, Respiratory: Negative for shortness of breath, cough, wheezing, and pleuritic chest pain, Abdomen/GI: Negative for abdominal pain, nausea, vomiting, diarrhea, and constipation, Back: Negative for injury and pain, : Negative for injury, bleeding, discharge, and swelling, MS/Extremity: Negative for injury and deformity, Skin: Negative for injury, rash, and discoloration, Neuro: Negative for headache, weakness, numbness, tingling, and seizure, Psych: Negative for depression, anxiety, suicide ideation, homicidal ideation, and hallucinations, Allergy/Immunology: Negative for hives, rash, and allergies, Endocrine: Negative for neck swelling, polydipsia, polyuria, polyphagia, and marked weight changes, Exam: 08:41 Constitutional: This is a well developed, well nourished patient who is awake, alert, addie and in no acute distress. Head/Face: Normocephalic, atraumatic. Eyes: Pupils equal round and reactive to light, extra-ocular motions intact. Lids and lashes normal. Conjunctiva and sclera are non-icteric and not injected. Cornea within normal limits. Periorbital areas with no swelling, redness, or edema. ENT: Nares patent. No nasal discharge, no septal abnormalities noted. Tympanic membranes are normal and external auditory canals are clear. Oropharynx with no redness, swelling, or masses, exudates, or evidence of obstruction, uvula midline. Mucous membranes moist. Chest/axilla: Normal chest wall appearance and motion. Nontender with no deformity. No lesions are appreciated. Cardiovascular: Regular rate and rhythm with a normal S1 and S2. No gallops, murmurs, or rubs. Normal PMI, no JVD. No pulse deficits. Respiratory: Lungs have equal breath sounds bilaterally, clear to auscultation and percussion. No rales, rhonchi or wheezes noted. No increased work of breathing, no retractions or nasal flaring. Abdomen/GI: Soft, non-tender, with normal bowel sounds. No distension or tympany. No guarding or rebound. No evidence of tenderness throughout. Back: No spinal tenderness. No costovertebral tenderness. Full range of motion. Female : Normal external genitalia. Skin: Warm, dry with normal turgor. Normal color with no rashes, no lesions, and no evidence of cellulitis. MS/ Extremity: Pulses equal, no cyanosis. Neurovascular intact. Full, normal range of motion. Neuro: Awake and alert, GCS 15, oriented to person, place, time, and situation. Cranial nerves II-XII grossly intact. Motor strength 5/5 in all extremities. Sensory grossly intact. Cerebellar exam normal. Normal gait. Psych: Awake, alert, with orientation to person, place and time. Behavior, mood, and affect are within normal limits. 08:41 Neck: Thyroid: appears normal, Trachea: is midline with no obvious abnormalities, ROM/movement: no acute changes, Lymph nodes: no appreciated lymphadenopathy, Vital Signs: 07:52 BP 195 / 81; Pulse 83; Resp 18; Temp 98; Pulse Ox 100% on R/A; Weight 60.78 kg; Height ll1 4 ft. 11 in. ; Pain 10/10; 08:05 BP 173 / 70; Pulse 77; Resp 18 S; Pulse Ox 100% on R/A; aa5 08:41 BP 148 / 61; Pulse 77; Resp 16 S; Pulse Ox 94% on R/A; aa5 09:15 BP 148 / 63; Pulse 76; Resp 14 S; Temp 97.8(TE); Pulse Ox 96% on R/A; Pain 5/10; aa5 07:52 Body Mass Index 27.06 (60.78 kg, 149.86 cm) ll1 07:52 Pain Scale: Adult ll1 09:15 Pain Scale: Adult aa5 MDM: 07:39 Medical Screening Exam initiated addie 08:50 Differential diagnosis: arthritis, Cervical Disc Herniation Cervical Discogenic Pain addie Cervical Facet Syndrome Cervical Raiculopathy Cervical Spondylosis cervical strain, Degenerative Disc Disease Neck Contusion Osteoarthritis Spondylolisthesis Spondylosis torticollis, Unstable Vertebral Fracture. Data reviewed: vital signs, nurses notes, lab test result(s), radiologic studies, CT scan. Consideration of Admission/Observation Escalation of care including admission/observation considered. I considered the following discharge prescriptions or medication management in the emergency department Medications were administered in the Emergency Department. See MAR. Independent interpretation of the following test(s) in the Emergency Department CT Scan: My interpretation is ct cervical. Test considered but Not performed: MRI: no mri c spine. Historians other than the Patient: Family Member: 2 sons well informed. Care significantly affected by the following chronic conditions: Diabetes, Hypertension, Chronic Kidney Disease, m,w,f dialysis. 06/13 07:55 Order name: CBC with Diff; Complete Time: 08:41 [facility] 06/13 07:55 Order name: Comprehensive Metabolic Panel; Complete Time: 08:50 [facility] 06/13 07:55 Order name: CT C Spine; Complete Time: 08:41 [facility] Administered Medications: 08:05 Drug: Diazepam PO 5 mg PO once Route: PO; aa5 08:45 Follow up: Response: No adverse reaction; Pain is decreased aa5 08:10 Drug: fentaNYL (PF) IVP 25 mcg IVP once Route: IVP; Site: right wrist; aa5 08:45 Follow up: Response: No adverse reaction; Pain is decreased aa5 08:10 Drug: Ondansetron IVP 4 mg IVP once; over 2 minutes Route: IVP; Site: right wrist; aa5 08:45 Follow up: Response: No adverse reaction aa5 08:14 Drug: Decadron - Dexamethasone IVP 10 mg IVP once Route: IVP; Site: right wrist; aa5 08:45 Follow up: Response: No adverse reaction aa5 08:45 Not Given (Physician Discretion): fentanyl (pf)25 mcg IVP once aa5 09:36 Not Given (Physician Discretion): ns 0.9% 1000 ml IV at 125 ml/hr continuous aa5 Disposition Summary: 06/13/24 08:53 Discharge Ordered Notes: Location: Home addie Problem: new addie Symptoms: have improved addie Condition: Stable addie Diagnosis - Spondylolysis, cervical region addie - Cervical disc disorder with radiculopathy, unspecified cervical region addie - Unspecified symptoms and signs involving the musculoskeletal system addie - Dependence on renal dialysis addie Followup: addie - With: Private Physician - When: 2 - 3 days - Reason: Recheck today's complaints, Continuance of care, Re-evaluation by your physician Discharge Instructions: - Discharge Summary Sheet addie - Cervical Radiculopathy addie - Musculoskeletal Pain addie - Dialysis addie - Cervical Radiculopathy, [id number] addie - Radicular Pain addie - Hemodialysis addie Forms: - Medication Reconciliation Form addie - Antibiotic Education addie - Prescription Opioid Use addie - Patient Portal Instructions [facility] - Leadership Thank You Letter [facility] Prescriptions: - dexamethasone 4 mg Oral tablet - take 1 tablet ORAL route once; 4 tablet; Refills: 0, Product Selection Permittedcha - ondansetron 4 mg Oral Tablet,disintegrating - take 1 tablet ORAL route every 8 hours prn; 15 tablet; Refills: 0, Product addie Selection Permitted - Valium 2 mg Oral tablet - take 1 tablet ORAL route every 8 hours As needed; 15 tablet; Refills: 0, addie Product Selection Permitted Signatures: Dispatcher [employer] Brett Griffin MD MD cha Calderon, Audri, RN RN aa5 Oswald Pratt RN RN ll1 Corrections: (The following items were deleted from the chart) 07:56 07:56 C Spine Wo [id number] ordered. EDMS EDMS
[2024-06-13 13:59] VITALS: TEMP 98
[2024-06-13 14:15] VITALS: BP 148/61; O2SAT 94
== END 2024-06-13 09:48 | disposition home or self-care (01) ==
LOC: ER 07:35
DX: M43.02 Spondylolysis, cervical region (principal); M50.10 Cervical disc disorder with radiculopathy, unspecified cervical region; R29.91 Unspecified symptoms and signs involving the musculoskeletal system; Z99.2 Dependence on renal dialysis; E11.22 Type 2 diabetes mellitus with diabetic chronic kidney disease; N18.6 End stage renal disease
CPT/HCPCS: 85025; 36415; 80053; 72125; 96375; 96374; 99284; J3010; J1100; J2405; J7030

== ENCOUNTER 2024-07-25 18:56 | Inpatient (IN) | payer OTHER ==
--- OUTSIDE RECORDS SUMMARY | 2024-07-25 18:58 | XMS REPORT | Continuity of Care Document ---
Author Name Unknown Address [address] [facility] [address] [place] [address] [facility] Address [address] [facility] [address] [place] [address] Care Team Providers Care Saw Operator Name Role Phone ALLAN JOLLY Attending Clinician Unavailable CATINA CHOUDHURY Attending Clinician UnavailKOSTA Rosenthal Attending Clinician Unavailable Julianna Schaffer Attending Clinician Unavailable JULES DUNN Attending Clinician Unavailable ADRIENNE SOTO Attending Clinician Unavailable EVARISTO OSUNA Attending Clinician Unavail able Julianna Schaffer Admitting Clinician Unavailable Payers Payer Name Policy Type Policy Number Effective Date Expirati on Date Source [employer] TXP CLASSIC NO PREMIUM [id number] 2023 00:00:00 MEDICARE PART A \T\ B [id number] 2010 00:00:00 Problems Condition Name Condition Details Condition Category Status Onset Date Resolution Date Last Treatment Date Treating Clinician Comments Source Arthritis Arthritis Disease Active 2023-08 0- 00:00: 00 Adele galvan History of cataract History of cataract Disease Active 3- 00:00: 00 Adele galvan Osteopenia of multiple sites Osteopenia of multiple sites Disease Active 09-25 00:00: 00 Adele Bahena - Externa l History of pneumonia History of pneumonia Disease Active 2022-08 2-19 00:00: 00 Adele Trevizoold - Externa l PVD (periphera l vascular disease) PVD (periphera l vascular disease) Disease Active 2022-08 0-10 00:00: 00 Adele Bahena - Externa l Risk for falls Risk for falls Disease Active 2022-08 0- 00:00: 00 Adele Bahena - Externa l Well adult exam Well adult exam Disease Active 2022-08 0- 00:00: 00 Adele Trevizoold - Externa l [...] 00:00: 00 Adele Bahena - Externa l GERD (gastroeso phageal reflux [...] bilateral Carotid stenosis, bilateral Disease Active Adele Backybold - Externa l Allergies, Adverse Reactions, Alerts Allergy Name Allergy Type Status Severity Reaction(s) Onset Date Inactive Date Treating Clinician Comments Source No Known Allergie s DA Active U 03-23 00:00: 00 [facility] Oxycodon e-Aspiri n Propensi ty to adverse reaction s Active Hallucinatio ns 11-14 00:00: 00 silviaodaalem Bahena - Externa l OXYCODON E HCL-OXYC ODONE- A DRUG Active High Hallucinates 11-14 00:00: 00 [facility] Calcium Acetylsa licylate Propensi ty to adverse reaction s Active 04-22 00:00: 00 Other reaction( s): hallucina tion, Rash Adele Bahena - Externa l Oxycodon e Propensi ty to adverse reaction s Active 04-22 00:00: 00 Other reaction( s): hallucina tion, Rash Adele Bahena - Externa l Social History Social Habit Start Date Stop Date Quantity Comments Source Gender identity Sophie Bahena - External Sexual orientation Justin Bahena - External ASSERTION Not Adele Bahena - External History of Occupation Adele Bahena - External Alcoholic beverage intake 2024-06-15 00:00:00 2024-06-15 00:00:00 Lifetime non-drinker (finding) Adele Bahena - [...] Stop Date Source Never smoked tobacco Adele Gutiérrez External Medications Ordered Medication Name Filled Medication Name Start Date Stop Date Current Medication? Ordering Clinician Indication Dosage Frequency Signature (SIG) Comments Components Source Colchicine (Colcrys) 0.6 MG oral Tablet 2023-08 16:24: 44 Yes TAKE 1 TABLET BY MOUTH 4 TIMES A DAY NEEDED FOR GOUT Adele galvan Atorvastati n Calcium 10 MG oral Tablet 2023-08 16:24: 44 Yes [id number] 10mg QD Take 1 tablet (10 mg total) by mouth nightly. Adele galavn Calcium Acetate, Phos Binder, 667 MG oral Tablet 2023-08 16:24: 44 Yes 1{tbl} Take 1 tablet by mouth 3 times daily (before meals). Adele galvan Calcitriol 0.25 MCG oral Capsule 2023-08 16:24: 44 Yes .25ug Take 1 capsule (0.25 mcg total) by mouth three times a week On dialysis days. Adele galvan Hydrocortis one 2.5 % apply externally Cream 2023-08 00:00: 00 Yes Adele galvan diazePAM 2 MG oral Tablet 2023-08 00:00: 00 Yes 2mg [id number] 3D Take 1 tablet (2 mg total) by mouth every 8 hours as needed. Adele galvan Ondansetron (ZOFRAN) 4 MG oral TABLET DISPERSIBLE 2023-08 00:00: 00 Yes DISSOLVE 1 TABLET IN MOUTH EVERY 8 HOURS NEEDED Adele galvan Carvedilol 12.5 MG oral Tablet 2023-08 011 00:00: 00 12-02 04:59 :00 Yes 12.5mg Take 1 tablet (12.5 mg total) by mouth in the morning and 1 tablet (12.5 mg total) in the evening. Take with meals. Adele galvan Entresto 24-26 MG oral Tablet 2023-08 0-08 00:00: 00 Yes 1{tbl} Q.5D Take 1 tablet by mouth 2 times daily. Adele Seybold - Externa l Colchicine (Colcrys) 0.6 MG oral Tablet 05-13 09:01: 42 Yes TAKE 1 TABLET BY MOUTH 4 TIMES A DAY NEEDED FOR GOUT Adele Batista l Atorvastati n Calcium 10 MG oral Tablet 05-13 09:01: 42 Yes [id number] 10mg QD Take 1 tablet (10 mg total) by mouth nightly. Adele Backrobert Batista l Calcium Acetate, Phos Binder, 667 MG oral Tablet 05-13 09:01: 42 Yes 1{tbl} Take 1 tablet by mouth 3 times daily (before meals). Adele Shruti Batista l Calcitriol 0.25 MCG oral Capsule 05-13 09:01: 42 Yes .25ug Take 1 capsule (0.25 mcg total) by mouth three times a week On . Adele Shruti Batista l PEG 3350-KCl-Na Bcb-NaCl-Na Sulf (PEG-3350/E lectrolytes ) 236 g oral Recon Soln 20 00:00: 00 05-13 00:00 :00 No Take by mouth. Adele Shruti galvan Aspirin 81 MG oral Tablet Delayed Response 02-09 08:29: 34 02-09 00:00 :00 No [id number] 81mg Take 1 tablet (81 mg total) by mouth daily. Adele Shruti galvan Colchicine (Colcrys) 0.6 MG oral Tablet 02-09 08:24: 06 Yes TAKE 1 TABLET BY MOUTH 4 TIMES A DAY NEEDED FOR GOUT Adele Backbishopezekiel Gutiérrez Zoilaadelia galvan Atorvastati n Calcium 10 MG oral Tablet 02-09 08:24: 06 Yes [id number] 10mg Take 1 tablet (10 mg total) by mouth nightly. Adele Shruti Batista l Calcium Acetate, Phos Binder, 667 MG oral Tablet 02-09 08:24: 06 Yes 1{tbl} Take 1 tablet by mouth 3 times daily (before meals). Adele Batista l Calcitriol 0.25 MCG oral Capsule 02-09 08:24: 06 Yes .25ug Take 1 capsule (0.25 mcg total) by mouth three times a week On dialysis days. Adele Shruti Cummingsadelia l Colchicine (Colcrys) 0.6 MG oral Tablet 11-24 10:41: 33 Yes TAKE 1 TABLET BY MOUTH 4 TIMES A DAY NEEDED FOR GOUT Adele Backrobert Cummingsa l Aspirin 81 MG oral Tablet Delayed Response 11-24 10:41: 33 Yes [id number] 81mg Take 1 tablet (81 mg total) by mouth daily. Adele Shruti Gutiérrez Externa l Atorvastati n Calcium 10 MG oral Tablet 11-24 10:41: 33 Yes [id number] 10mg Take 1 tablet (10 mg total) [...] DAY NEEDED FOR GOUT Adele Backrobert galvan Aspirin 81 MG oral Tablet Delayed Response 11-10 09:01: 31 Yes [id number] 81mg Take 1 tablet (81 mg total) by mouth daily. Adele Shruti Gutiérrez Zoilaa l Atorvastati n Calcium 10 MG oral Tablet 11-10 09:01: 31 Yes [id number] 10mg Take 1 tablet (10 mg total) [...] Capsule 00:00: 00 11-10 00:00 :00 No [id number] 100mg Q.[id number] 3D Take 1 capsule (100 mg total) [...] Tablet Delayed Response 09-25 10:58: 01 Yes [id number] 81mg Take 1 tablet (81 mg total) by mouth daily. Adele galvan Atorvastati n Calcium 10 MG oral Tablet 09-25 10:58: 01 Yes [id number] 10mg Take 1 tablet (10 mg total) by mouth nightly. Adele Batista l Colchicine (Colcrys) 0.6 MG oral Tablet 2022-08 11:49: 06 Yes TAKE 1 TABLET BY MOUTH 4 TIMES A DAY NEEDED FOR GOUT Adele Batista l Aspirin 81 MG oral Tablet Delayed Response 2022-08 11:49: 06 Yes [id number] 81mg Take 1 tablet (81 mg total) by mouth daily. Adele Cummingsa l Atorvastati n Calcium 10 MG oral Tablet 2022-08 11:49: 06 Yes [id number] 10mg Take 1 tablet (10 mg total) by mouth nightly. Adele galvan Albuterol HFA 108 (90 Base) MCG/ACT IN AERS 2022-08 00:00: 00 Yes [id number] 2{puff} Q.25D Inhale 2 puffs into the [...] Tablet Delayed Response 2022-08 10:32: 53 Yes [id number] 81mg Take 1 tablet (81 mg total) by mouth daily. Adele galvan Atorvastati n Calcium 10 MG oral Tablet 2022-08 010 10:32: 53 Yes [id number] 10mg Take 1 tablet (10 mg total) by mouth nightly. Adele galvan Colchicine (Colcrys) 0.6 MG oral Tablet 2022-08 0-10 10:08: 32 Yes TAKE 1 TABLET BY MOUTH 4 TIMES A DAY NEEDED FOR GOUT Adele galvan Colchicine (Colcrys) 0.6 MG oral Tablet 2022-08 0-05 13:22: 00 Yes TAKE 1 TABLET BY MOUTH 4 TIMES A DAY NEEDED FOR GOUT Adele galvan Atenolol 25 MG oral Tablet 9-07 00:00: 00 Yes [id number] 1 tablet by mouth on FRIDAY, FRIDAY [...] Up Unknown Completed Adele Bahena - External Influenza Virus Vaccine, High Dose, Age 65 And Up Unknown Completed Adele Bahena - External Vital Signs Vital Name Observation Time Observation Value Comments S ource Systolic blood pressure 2024-06-15 21:22:00 124 mm[Hg] Adele Thakkar ld - External Diastolic blood pressure 2024-06-15 21:22:00 72 mm[Hg] Adele Thakkar ld - External Heart rate 2024-06-15 21:22:00 83 /min Casper Bahena - External Body temperature 2024-06-15 21:22:00 36.39 [place] Adele Bahena - External Respiratory rate 2024-06-15 21:22:00 16 /min Adele Bahena - External Body height 2024-06-15 21:22:00 149.9 cm Sophie ey ybold - External Body weight 2024-06-15 21:22:00 66.679 kg Sophie ey ybold - External BMI 2024-06-15 21:22:00 29.69 kg/m2 Sophie ey Seybold - External Systolic blood pressure 2024-05-13 14:00:00 133 mm[Hg] Adele Trevizoo ld - External Diastolic blood pressure 2024-05-13 14:00:00 67 mm[Hg] Adele Thakkar ld - External Heart rate 2024-05-13 14:00:00 76 /min Kelse y Seybold - External Body temperature 2024-05-13 14:00:00 36.22 [place] Adele Seybold - External Respiratory rate 2024-05-13 14:00:00 16 /min Adele Seybold - External Body height 2024-05-13 14:00:00 149.9 cm Sophie ey Seybold - External Body weight 2024-05-13 14:00:00 63.504 kg Sophie ey Seybold - External BMI 2024-05-13 14:00:00 28.28 kg/m2 Sophie ey Seybold - External Oxygen saturation in Arterial blood by Pulse oximetry 2024-05-13 14:00:00 97 /min Adele Seybo ld - External Systolic blood pressure 2024-02-10 13:22:00 143 mm[Hg] Adele Seybo ld - External Diastolic blood pressure 2024-02-10 [...] External Heart rate 2023-09-25 16:56:00 69 /min Casper y Seybold - External Body temperature 2023-09-25 [...] blood pressure 2023-05-01 15:54:00 99 mm[Hg] Adele Thakkar ld - External Diastolic blood pressure 2023-05-01 15:54:00 54 mm[Hg] Adele Thakkar ld - External Heart rate 2023-05-01 15:54:00 71 /min Casper Bahena - External Body temperature 2023-05-01 15:54:00 36.11 [place] Adele Bahena - External Respiratory rate 2023-05-01 15:54:00 20 /min Adele Bahena - External Body height 2023-05-01 15:54:00 149.9 cm Sophie leblanc Seybold - External Body weight 2023-05-01 15:54:00 63.957 kg Sophie leblanc Seybold - External BMI 2023-05-01 15:54:00 28.48 kg/m2 Sophie leblanc Seybold - External Oxygen saturation in Arterial blood by Pulse oximetry 2023-05-01 15:54:00 100 /min Adele Thakkar ld - External Procedures Procedure Date / Time Performed Performing Clinicia n Source [facility] 2023-06-03 15:13:24 [place] Shruti - External Encounters Start Date/Time End Date/Time Encounter Type Admission Type Attending [facility] Facility Care Department Encounter ID Source 2024-06-24 00:00:00 2024-06-24 00:00:00 Outpatient ALLAN JOLLY [id number] Adele robert 2024-06-22 15:45:00 2024-06-22 15:45:00 Outpatient CATINA CHOUDHURY [id number] Adele Seybezekiel 2024-06-15 16:30:00 2024-06-15 16:30:00 Outpatient KOSTA LEO [id number] Adele Backybezekiel 2024-05-28 00:00:00 2024-05-28 00:00:00 Outpatient ALLAN JOLLY [id number] Adele Bahena 2024-05-18 00:00:00 2024-05-18 00:00:00 Outpatient ALLAN JOLLY [id number] Adele Backybezekiel 2024-05-14 00:00:00 2024-05-14 00:00:00 Outpatient PREZASALLAN ADELE OSORIO [id number] Adele Bahena 2024-05-13 09:15:00 2024-05-13 09:15:00 Outpatient PREZASALLAN ADELE OSORIO [id number] Adele Backezekiel 2024-05-11 05:12:00 2024-05-11 05:12:00 Outpatient Julianna Aguilar HCAPM ENDO [id number] [facility] 2024-05-07 00:00:00 2024-05-07 00:00:00 Outpatient PREZAS, ALLAN ADELE OSORIO [id number] Adele Bahena 2024-03-30 06:07:00 2024-03-30 06:07:00 Outpatient Julianna Aguilar HCAPM ENDO [id number] [facility] 2024-02-16 00:00:00 2024-02-16 00:00:00 Outpatient PREZAS, ALLAN ADELE OSORIO [id number] [facility] 2024-02-12 00:00:00 2024-02-12 00:00:00 Outpatient PREZAS, ALLAN ADELE OSORIO [id number] Adele Backezekiel 2024-02-10 08:15:00 2024-02-10 08:15:00 Outpatient PREZAS ALLAN OSORIO [id number] [facility] 2024-01-01 11:20:00 2024-01-01 11:20:00 Outpatient JULES DUNN [id number] [facility] 2023-12-25 09:00:00 2023-12-25 09:00:00 Outpatient PREZAS, ALLAN OSORIO [id number] Adele ybezekiel 2023-12-02 11:20:00 2023-12-02 11:20:00 Outpatient JULES DUNN [id number] Adele ybezekiel 2023-11-25 11:30:00 2023-11-25 11:30:00 Outpatient ADELE OSORIO [id number] [facility] 2023-11-25 10:40:00 2023-11-25 10:40:00 Outpatient VUJULES ADELE [id number] [facility] 2023-11-18 00:00:00 2023-11-18 00:00:00 Outpatient PREZAS, ALLAN OSORIO ADELE [id number] Adele Backybezekiel 2023-11-11 09:00:00 2023-11-11 09:00:00 Outpatient PREZAS, ALLAN OSORIO ADELE [id number] [facility] 2023-11-06 00:00:00 2023-11-06 00:00:00 Outpatient PREZAS, ALLAN OSORIO ADELE [id number] [facility] 2023-10-23 00:00:00 2023-10-23 00:00:00 Outpatient PREZAS, ALLAN ADELE ADELE [id number] [facility] 2023-10-21 00:00:00 2023-10-21 00:00:00 Outpatient PREZAS, ALLAN ADELE OSORIO [id number] [facility] 2023-09-25 10:30:00 2023-09-25 10:30:00 Outpatient PREZAS, ALLAN ADELE OSORIO [id number] [facility] 2023-09-04 09:00:00 2023-09-04 09:00:00 Outpatient PREZAS, ALLAN ADELE OSORIO [id number] [facility] 2023-08-28 14:00:00 2023-08-28 14:00:00 Outpatient ADELE OSORIO [id number] [facility] 2023-08-28 13:30:00 2023-08-28 13:30:00 Outpatient ADELE OSORIO [id number] Adele Seybold 2023-08-28 00:00:00 2023-08-28 00:00:00 Outpatient PREZAS, ALLAN ADELE OSORIO [id number] [facility] 2023-08-19 00:00:00 2023-08-19 00:00:00 Outpatient PREZAS, ALLAN ADELE OSORIO [id number] [facility] 2023-08-12 11:30:2023-08-12 11:30:00 Outpatient ALLAN JOLLY [id number] Adele Bahena 2023-06-03 10:00:00 2023-06-03 10:00:00 Outpatient ALLAN JOLLY [id number] Adele Bahena 2023-05-29 13:30:00 2023-05-29 13:30:00 Outpatient ADRIENNE SOTO [id number] Adele Backezekiel 2023-05-01 10:45:00 2023-05-01 10:45:00 Outpatient ALLAN JOLLY [id number] Adele Bahena 2018-03-12 09:30:00 2018-03-12 10:31:36 Outpatient EVARISTO ORTIZ [facility] [id number] [facility] Results Test Description Test Time Test Comments Results Result Co mments Source BASIC METABOLIC [id number] 14:44:00* Test Item Value Reference Range Interpretation [...] CA) 9.7 MG/DL 8.5-10.1 N CBC W/O [id number] 14:21:00* Test Item Value Reference Range Interpretation [...] ode = MPV) 9.90 fL 7.0-10.5 N [id number] 17:28:00* Test Item Value Reference Range Interpretation Comme nts SURGICAL (test code = SR) RUN DATE: 03/31/24 [facility] PAGE 1 RUN TIME: 1728 Specimen Inquiry RUN USER: INTERFACE PATIENT: TINA SUAREZ LOC: JACKLYN U #: [id number] AGE/SX: 78/F ROOM: RE03/30/24REG DR: Julianna Schaffer MD : 45 BED: DIS: STATUS: [facility] TLOC: SPEC #: [id number]:[id number] RECD: 03/30/24 STATUS: [facility] #: [id number] KINSEY: 03/30/[address] [facility] DR: Julianna Schaffer MD ENTERED: 03/30/24 SP TYPE: SURGICAL OTHR DR: ORDERED: 19535/4, ANATOMIC SPEC, SPECIMEN TRACK PROCEDURES: 96916 (03/30/24) SPECIMEN TRACK (03/30/24) TISSUES: A. DUODENUM [...] CONTINUED ON NEXT PAGE RUN DATE: 03/31/24 [facility] PAGE 2 RUN TIME: 1728 Specimen Inquiry RUN USER: INTERFACE SPEC #: [id number]:[facility]:[id number] PATIENT: TINA SUAREZ #[id number] (Continued) GROSS DESCRIPTION (Continued) D. Distal esophagus. It consists of a single tissue fragment measuring 5 mm, entirelysubmitted as D1. Technical tissue processing and slide preparation performed at [id number] , [place] [address] MICROSCOPIC DESCRIPTION Microscopic examination is performed and the findings are incorporated into the finaldiagnosis. Please see diagnosis for findings. Signed SIGNATURE ON FILE Crista Baldwin 03/31/24 1728 END OF REPORT BASIC METABOLIC [id number] 08:21:00* Test Item Value Reference Range Interpretation [...] CA) 9.2 MG/DL 8.5-10.1 N BASIC METABOLIC [id number] 09:37:00* Test Item Value Reference Range Interpretation [...] CA) 9.8 MG/DL 8.5-10.1 N CBC W/O [id number] 09:08:00* Test Item Value Reference Range Interpretation [...] ode = MPV) 10.20 fL 7.0-10.5 N [id number] 15:14:01* Test Item Value Reference Range Interpretation Comme nts [employer] left side (test code = 87984-8R) See_Comment [Automate d message] The system which generated this result transmitted reference range: 1.40 - 0.90 NA. The reference range was not used to interpret this result as normal/abnormal. [employer] right side (test code = 54189-7W) See_Comment L Exercise Modality: At Restboth feet retested Normal - 1.40 - 1.00Borderline - 0.99 - 0.90Mild - 0.89 - 0.60Moderate - 0.59 - 0.30Severe - 0.29 - 0.00 [Automated message] The system which generated this result transmitted reference range: 1.40 - 0.90 NA. The reference range was not used to interpret this result as normal/abnormal. Lab Interpretation (test code = 14530-2) Abnormal Adele Bahena - External Notes Date/Time Note Provider Source 2024-06-15 16:24:49 Chief Complaint Patient presents with Hospital F/U Follow up from [facility] ER on Friday for pain. She states that she could not move. Kayla Rosenthal MA II Kayla Rosenthal MA, II [facility] 2024-05-11 10:10:00 [id number] [address] PATIENT NAME: TINA SUAREZ ADMIT DATE: 05/11/24 ACCOUNT NO: [id number] ROOM NO: AGE: 79 REPORT TYPE: OPERATIVE REPORT SEX: F ADMITTING PHYSICIAN: ATTENDING PHYSICIAN: Julianna Schaffer MD OPERATION DATE: 05/11/2024 PREOPERATIVE DIAGNOSIS: PROCEDURES: 1. Colonoscopy. 2. Hot biopsy of polyps x2, one in cecum and one in ascending colon. 3. Administration of anesthesia. SURGEON: Julianna Schaffer MD MEDICAL MANAGER: ANESTHESIA: [place] PREP: 05/03. INDICATIONS: Abdominal pain, increasing constipation and anemia. POSTOPERATIVE DIAGNOSIS: See below. COMPLEXITY: Complex procedure. TOLERANCE TO ANESTHESIA: Excellent. PROCEDURE IN DETAIL: The procedure with possible complications, alternatives including but not limited to possibility of bleeding, perforation, tear, infection, sepsis, need for surgery, need for blood transfusion, anesthesia related problem including rare fatalities from anesthesia itself were explained to the patient and some missing rate. After appropriate level of anesthesia, a digital anorectal examination was performed and was normal. Forward-view retroflexion in this area appeared to be fine other than small internal hemorrhoid. Scattered diverticulosis noted in sigmoid, descending and transverse colon area. In the ascending colon, a 0.5 cm sessile polyp was removed with hot biopsy. Another similar sized polyp had been removed also from cecum. On way back, the scope was retrieved back and forth throughout all of the above areas. Repeated and diligent visualization did not reveal any additional information. Having done the above procedure in safe diligent and satisfactory manner, endoscope, rest of the endoscopic accessories were removed. The patient's PATIENT NAME: TINA SUAREZ oropharyngeal area ____ cleaned out in respectful manner. The patient has been sent in excellent condition to postoperative recovery from there to home. IMPRESSION: Polyposis coli, diverticulosis coli. PLAN: Follow up in office. Followup colonoscopy according to the patient's wish and biopsy. COMPLICATIONS: None. The patient tolerated the procedure well. DISPOSITION: As above. Dictated By: Julianna Schaffer MD Date Dictated: 05/11/2024 10:10:31 Date Transcribed: 05/11/2024 13:22:51 JUNG/BRIAN/DELORES/MARIANNA/SUSAN Receipt ID: [id number] Authenticated by Julianna Schaffer MD On 06/23/2024 09:57:59 AM at 0957 PATIENT NAME: TINA SUAREZ [facility] 2024-05-11 08:40:00 [facility] ([facility]) Post Anesthesia Evaluation REPORT#:[id number] REPORT STATUS: Signed REPORT INITIALIZATION DATE:05/11/24 TIME:0840 PATIENT: TINA SUAREZ UNIT #: [id number] ROOM/BED: : 45 AGE: 79 SEX: F [...] Anesthesia complications: no at 0840 RPT #: [id number] END OF REPORT [facility] 2024-03-31 08:32:00 [id number] [address] PATIENT NAME: TINA SUAREZ ADMIT DATE: 03/30/24 ACCOUNT NO: [id number] ROOM NO: AGE: 79 REPORT TYPE: OPERATIVE REPORT SEX: F ADMITTING PHYSICIAN: ATTENDING PHYSICIAN: Julianna Schaffer MD OPERATION DATE: 03/30/2024 PROCEDURES: 1. EGD with biopsy. 2. Administration of anesthesia by Department of Anesthesia. INDICATIONS: Persistent dyspepsia, abdominal pain. SURGEON: Julianna Schaffer MD MEDICAL MANAGER: PREOPERATIVE DIAGNOSIS: POSTOPERATIVE DIAGNOSIS: See below. COMPLEXITY: [...] Date Transcribed: 03/31/2024 10:29:16 JUNG/BRIAN/JANKI Receipt ID: [id number] CC: Authenticated by Julianna Schaffer MD On 04/28/2024 09:59:06 AM at 0959 PATIENT NAME: TINA SUAREZ [facility] 2024-03-30 09:17:00 [facility] ([facility]) Post Anesthesia Evaluation REPORT#:[id number] REPORT STATUS: Signed REPORT INITIALIZATION DATE:03/30/24 TIME:916 PATIENT: TINA SUAREZ UNIT #: [id number] ROOM/BED: : 45 AGE: 78 SEX: F [...] Anesthesia complications: no at 0917 RPT #: [id number] END OF REPORT [facility] 2023-11-11 09:01:33 Chief Complaint Patient presents with Follow-up 3 month follow up Kayla Rosenthal MA II [facility]
--- NOTE | 2024-07-25 19:38 | RAD REPORT ---
EXAMINATION: ONE VIEW CHEST XR CLINICAL INDICATION: DYSPNEA TECHNIQUE: Frontal chest projection is submitted. Examination is limited by patient positioning and t echnique. COMPARISON: 05/30/2024 FINDINGS: There is extensive bilateral airspace lung opacities present likely pulmonary edema or pneumonia. The heart is upper limit of normal in size. No displaced fractures identified.
[2024-07-25 19:49] LABS: Absolute Basophils 0.1 K/uL (0-0.5); Absolute Eosinophils 0.1 K/uL (0-0.5); Absolute Monocytes 0.9 K/uL (0.1-1.3); Basophils % 0.9 % (0-1.3); Eosinophils % 1.4 % (0-4.4); Hematocrit 33.5 % (36.0-45.0); Lymphocytes % 33.2 % (15.3-44.8); MCH 30.5 pg (27.0-35.0); MCHC 32.8 g/dL (32.0-36.0); MCV 92.9 fL (80-100); MPV 8.9 fL (7.6-11.3); Monocytes % 9.6 % (3.3-12.3); Neutrophils % 54.9 % (41.7-73.7); Platelets 253 thou/uL (152-406); Red Cell Distribution Width 17.8 % (12.1-15.2)
[2024-07-25 19:51] LABS: PT Prothrombin Time 11.8 SECONDS (9.4-12.5); Protime INR 1.06
--- NOTE | 2024-07-25 20:00 | ER ---
Nurse's Notes [facility] Name: Kevin Chou Age: 79 yrs Sex: Female : 1945 Arrival Date: 07/25/2024 Time: 18:56 Bed 5 Private MD: Diagnosis: Dyspnea, pneumonia Presentation: 07/25 19:12 Chief complaint: Patient states: COUGH AND SHORTNESS OF BREATH X1 DAY. Coronavirus dd2 screen: At this time, the client does not indicate any symptoms associated with coronavirus-19. Ebola Screen: No symptoms or risks identified at this time. Initial Sepsis Screen: Does the patient meet any 2 criteria? No. Patient's initial sepsis screen is negative. Does the patient have a suspected source of infection? No. Patient's initial sepsis screen is negative. Risk Assessment: Do you want to hurt yourself or someone else? Patient reports no desire to harm self or others. Onset of symptoms was July 24, 2024. 19:12 Method Of Arrival: Wheelchair dd2 19:12 Acuity: GRETA 3 dd2 Triage Assessment: 19:18 General: Appears uncomfortable, Behavior is calm, cooperative, appropriate for age. dd2 Pain: Complains of pain in chest Pain currently is 2 out of 10 on a pain scale. Aggravated by COUGHING. EENT: No deficits noted. No signs and/or symptoms were reported regarding the EENT system. Neuro: Level of Consciousness is awake, alert, obeys commands, Oriented to person, place, time, situation, Appropriate for age. Cardiovascular: Patient's skin is warm and dry. Respiratory: Reports shortness of breath cough that is non-productive, Airway is patent Respiratory effort is even, unlabored, Respiratory pattern is regular, symmetrical, Onset: The symptoms/episode began/occurred yesterday, the patient has moderate shortness of breath. GI: No deficits noted. No signs and/or symptoms were reported involving the gastrointestinal system. Abdomen is non-distended, Abd is soft and non tender X 4 quads. : Reports DIALYSIS M,W,F. Derm: No deficits noted. No signs and/or symptoms reported regarding the dermatologic system. Musculoskeletal: No deficits noted. No signs and/or symptoms reported regarding the musculoskeletal system. Circulation, motion, and sensation intact. Range of motion: intact in all extremities. Historical: - Allergies: 19:18 Aspirin; dd2 19:18 Oxycodone HCl; dd2 19:18 Percodan; dd2 - PMHx: 19:18 diabetes mellitus; DIALYSIS MWF; Hypertension; kidney disease; dd2 - PSHx: 19:18 Left arm fistula; dd2 - Immunization history:: Adult Immunizations up to date. - Infectious Disease History:: Denies. - Social history:: Smoking status: Patient denies any tobacco usage or history of. Screenin:[address] [facility] ED Fall Risk Assessment (Adult) History of falling in the last 3 months, dd2 including since admission No falls in past 3 months (0 pts) Confusion or Disorientation No (0 pts) Intoxicated or Sedated No (0 pts) Impaired Gait No (0 pts) Mobility Assist Device Used No (0 pt) Altered Elimination Yes (1 pt) Score/Fall Risk Level 0 - 2 = Low Risk Oriented to surroundings, Maintained a safe environment, Educated pt \T\ family on fall prevention, incl call for assistance when getting out of bed, Assessed \T\ reinforced patient's understanding of fall precautions, Hourly rounding (assess needs \T\ fall precautionary measures) done. Abuse screen: Denies threats or abuse. Nutritional screening: No deficits noted. Tuberculosis screening: No symptoms or risk factors identified. 21:49 Exposure risk/Travel Screening: None identified. mt4 Assessment: 19:21 Reassessment: SEE TRIAGE ASSESSMENT FOR FULL ASSESSMENT. dd2 21:49 Reassessment: Patient is alert, oriented x 3, equal unlabored respirations, skin mt4 warm/dry/pink. General: Appears in no apparent distress. Neuro: Level of Consciousness is awake, alert, obeys commands, Oriented to person, place, time, Weakness Speech is normal, Facial symmetry appears normal. Cardiovascular: Capillary refill < 3 seconds Rhythm is regular. Respiratory: Airway is patent Respiratory effort is labored, Respiratory pattern is tachypnea Breath sounds are coarse in left upper lobe and left lower lobe Breath sounds are diminished in right upper lobe and right lower lobe. GI: Reports diarrhea. : Denies burning with urination. Musculoskeletal: Capillary refill < 3 seconds, Range of motion: intact in all extremities. Vital Signs: 19:12 Pulse 90; Resp 19; Temp 97.9; Pulse Ox 88% on R/A; Weight 60.78 kg; Height 4 ft. 11 in. dd2 ; 19:20 BP 168 / 66; dd2 21:48 BP 168 / 86; Pulse 90; Resp 25; Temp 98.7(O); Pulse Ox 96% on 2 lpm NC; mt4 22:40 BP 162 / 81; Pulse 87; Resp 20; Temp 98.1; Pulse Ox 98% on 2 lpm NC; dd2 19:12 Body Mass Index 27.06 (60.78 kg, 149.86 cm) dd2 Erie Coma Score: 19:21 Eye Response: spontaneous(4). Motor Response: obeys commands(6). Verbal Response: dd2 oriented(5). Total: 15. 21:49 Eye Response: spontaneous(4). Motor Response: obeys commands(6). Verbal Response: mt4 oriented(5). Total: 15. ED Course: 18:58 Patient arrived in ED. mr 19:02 Chelo Zepeda MD is Attending Physician. sp3 19:11 BRENDON MIDDLETON, RN is Primary Nurse. dd2 19:12 EKG done, by ED staff, reviewed by Chelo Zepeda MD. dd2 19:18 Triage completed. dd2 19:18 Arm band placed on right wrist. Patient placed in an exam room, on a stretcher, on dd2 oxygen, on monitor tech, on pulse oximetry. 19:21 No provider procedures requiring assistance completed. Oxygen administration via nasal dd2 cannula \T\ 2L/min. 19:21 Patient has correct armband on for positive identification. Allergy band placed. Placed dd2 in gown. Bed in low position. Call light in reach. Side rails up X2. Client placed on continuous cardiac and pulse oximetry monitoring. NIBP monitoring applied. court recording monitor on. Door closed. Noise minimized. Warm blanket given. Pillow given. Verbal reassurance given. 19:31 XRAY Chest (1 view) In Process Unspecified. EDMS 19:36 Inserted saline lock: 22 gauge in right forearm, using aseptic technique. Blood oe collected. Flushed with 10 mL NS. 19:36 Basic Metabolic Panel Sent. oe 19:36 CBC with Diff Sent. oe 19:36 LFT's Sent. oe 19:36 Magnesium Sent. oe 19:36 NT PRO-BNP Sent. oe 19:36 PT-INR Sent. oe 19:37 Troponin HS Sent. oe 19:37 Flu Sent. oe 19:37 SARS RAPID Sent. oe 19:59 Deana Scherer MD is Hospitalizing Provider. sp3 21:49 Resting quietly. Awaiting bed assignment. mt4 21:49 Oxygen administration via nasal cannula \T\ 2L/min. mt4 21:49 Provided Education on: incontinence care . Client placed on continuous cardiac and mt4 pulse oximetry monitoring. NIBP monitoring applied. court recording monitor on. Door closed. Lights dimmed. Warm blanket given. Pillow given. Verbal reassurance given. Cleaned of incontinence. 23:25 Patient admitted, IV remains in place. dd2 Administered Medications: 20:33 Drug: Cefepime IVPB 1 grams IVPB at 200 ml/hr once over 30 mins; (mix in NS 100 mL) dd2 Route: IVPB; Rate: 200 ml/hr; Infused Over: 30 mins; Site: right forearm; 20:48 Follow up: Response: No adverse reaction dd2 21:03 Follow up: IV Status: Completed infusion; IV Intake: 110ml dd2 21:09 Drug: vancoMYCIN IVPB 500 mg IVPB once over 1 hrs Route: IVPB; Infused Over: 1 hrs; dd2 Site: right forearm; 21:24 Follow up: Response: No adverse reaction dd2 22:09 Follow up: IV Status: Completed infusion; IV Intake: 100ml dd2 21:09 Drug: Ondansetron IVP 4 mg IVP once; over 2 minutes Route: IVP; Site: right forearm; dd2 21:24 Follow up: Response: No adverse reaction dd2 Medication: 19:21 VIS not applicable for this client. dd2 Intake: 21:03 IV: 110ml; Total: 110ml. dd2 22:09 IV: 100ml; Total: 210ml. dd2 Outcome: 19:59 Decision to Hospitalize by Provider. sp3 23:25 Admitted to Med/surg accompanied by tech, via stretcher, room 207, with oxygen, with dd2 chart, 23:25 Condition: stable 23:25 Instructed on the need for admit, 23:26 Patient left the ED. dd2 Signatures: Dispatcher [employer] EDDC Billie Matos, Reg Reg mr Abi, Devin Chelo Domínguez MD MD sp3 Arnie Bond RN RN mt4 BRENDON MIDDLETON, RN RN dd2
--- NOTE | 2024-07-25 20:00 | EDPHYS ---
Physician Documentation [facility] Name: Kevin Chou Age: 79 yrs Sex: Female : 1945 Arrival Date: 07/25/2024 Time: 18:56 Bed 5 Private MD: ED Physician Chelo Zepeda HPI: 07/25 19:21 This 79 yrs old Black Female presents to ER via Wheelchair with complaints of Shortness sp3 Of Breath, Cough. 19:21 79-year-old female with diabetes, and stage renal disease Friday with sp3 last dialysis Friday, hypertension, prior pneumonia presents to the ED with chief complaint shortness of breath and cough for approximately 2 to 3 days worsening yesterday evening. Patient is normally on 2 L oxygen with room air pulse oxygenation 88% today. She denies any chest pain, fever, abdominal pain, nausea, vomiting, diarrhea, syncope, near syncope, focal neurological deficit, rash, known sick contacts, travel history, or any other signs or symptoms on ROS at this time.. Historical: - Allergies: 19:18 Aspirin; dd2 19:18 Oxycodone HCl; dd2 19:18 Percodan; dd2 - PMHx: 19:18 diabetes mellitus; DIALYSIS MWF; Hypertension; kidney disease; dd2 - PSHx: 19:18 Left arm fistula; dd2 - Immunization history:: Adult Immunizations up to date. - Infectious Disease History:: Denies. - Social history:: Smoking status: Patient denies any tobacco usage or history of. ROS: 19:22 Constitutional: Negative for fever, chills, and weight loss, Eyes: Negative for injury, sp3 pain, redness, and discharge, ENT: Negative for injury, pain, and discharge, Neck: Negative for injury, pain, and swelling, Cardiovascular: Negative for chest pain, palpitations, and edema, Abdomen/GI: Negative for abdominal pain, nausea, vomiting, diarrhea, and constipation, Back: Negative for injury and pain, MS/Extremity: Negative for injury and deformity, Skin: Negative for injury, rash, and discoloration, Neuro: Negative for headache, weakness, numbness, tingling, and seizure, Psych: Negative for depression, anxiety, suicide ideation, homicidal ideation, and hallucinations, Allergy/Immunology: Negative for hives, rash, and allergies, Endocrine: Negative for neck swelling, polydipsia, polyuria, polyphagia, and marked weight changes, Hematologic/Lymphatic: Negative for swollen nodes, abnormal bleeding, and unusual bruising, 19:22 All other systems are negative, Exam: 19:22 Constitutional: This is a well developed, well nourished patient who is awake, alert, sp3 and in no acute distress. Head/Face: Normocephalic, atraumatic. Eyes: Pupils equal round and reactive to light, extra-ocular motions intact. Lids and lashes normal. Conjunctiva and sclera are non-icteric and not injected. Cornea within normal limits. Periorbital areas with no swelling, redness, or edema. Neck: Trachea midline, no thyromegaly or masses palpated, and no cervical lymphadenopathy. Supple, full range of motion without nuchal rigidity, or vertebral point tenderness. No Meningismus. Chest/axilla: Normal chest wall appearance and motion. Nontender with no deformity. No lesions are appreciated. Cardiovascular: Regular rate and rhythm with a normal S1 and S2. No gallops, murmurs, or rubs. Normal PMI, no JVD. No pulse deficits. Abdomen/GI: Soft, non-tender, with normal bowel sounds. No distension or tympany. No guarding or rebound. No evidence of tenderness throughout. Back: No spinal tenderness. No costovertebral tenderness. Full range of motion. Skin: Warm, dry with normal turgor. Normal color with no rashes, no lesions, and no evidence of cellulitis. MS/ Extremity: Pulses equal, no cyanosis. Neurovascular intact. Full, normal range of motion. Neuro: Awake and alert, GCS 15, oriented to person, place, time, and situation. Cranial nerves II-XII grossly intact. Motor strength 5/5 in all extremities. Sensory grossly intact. Cerebellar exam normal. Normal gait. Psych: Awake, alert, with orientation to person, place and time. Behavior, mood, and affect are within normal limits. 19:22 ECG was reviewed by the Attending Physician. EKG demonstrates normal sinus rhythm at 85 bpm with first-degree AV block with IN interval 244, normal intervals otherwise, normal axis, normal QRS, nonspecific diffuse ST/T changes without evidence of acute ischemia. Vital Signs: 19:12 Pulse 90; Resp 19; Temp 97.9; Pulse Ox 88% on R/A; Weight 60.78 kg; Height 4 ft. 11 in. dd2 ; 19:20 BP 168 / 66; dd2 21:48 BP 168 / 86; Pulse 90; Resp 25; Temp 98.7(O); Pulse Ox 96% on 2 lpm NC; mt4 22:40 BP 162 / 81; Pulse 87; Resp 20; Temp 98.1; Pulse Ox 98% on 2 lpm NC; dd2 19:12 Body Mass Index 27.06 (60.78 kg, 149.86 cm) dd2 Marylin Coma Score: 19:21 Eye Response: spontaneous(4). Motor Response: obeys commands(6). Verbal Response: dd2 oriented(5). Total: 15. 21:49 Eye Response: spontaneous(4). Motor Response: obeys commands(6). Verbal Response: mt4 oriented(5). Total: 15. MDM: 19:02 Medical Screening Exam initiated sp3 19:23 Data reviewed: vital signs, nurses notes, old medical records, lab test result(s), EKG, sp3 radiologic studies. ED course: 79-year-old female with PMH above now with shortness of breath. Differential diagnosis includes pneumonia, CHF exacerbation, volume overload, acute coronary syndrome, electrolyte abnormality, among others. Workup will include chest x-ray, EKG and general labs coupled with viral swabs. Disposition pending workup and patient course.. 20:00 ED course: Chest x-ray demonstrates bilateral pneumonia. BNP normal. Will obtain sp3 cultures and start antibiotics and admit for treatment and supportive care. Patient gets significantly winded on any exertion.. 07/25 19:03 Order name: Basic Metabolic Panel; Complete Time: 20:50 sp3 07/25 19:03 Order name: CBC with Diff; Complete Time: 20:50 sp3 07/25 19:03 Order name: LFT's; Complete Time: 20:50 sp3 07/25 19:03 Order name: Magnesium; Complete Time: 20:50 sp3 07/25 19:03 Order name: NT PRO-BNP; Complete Time: 20:50 sp3 07/25 19:03 Order name: PT-INR; Complete Time: 20:50 sp3 07/25 19:03 Order name: Troponin HS; Complete Time: 20:50 sp3 12/01 19:10 Order name: Flu; Complete Time: 20:50 sp3 07/25 19:10 Order name: SARS RAPID; Complete Time: 20:50 3 07/25 20:00 Order name: Blood Culture Adult (2) 3 07/25 20:00 Order name: Lactate w/ 2H reflex if indic.; Complete Time: 20:50 3 07/25 22:16 Order name: Urinalysis w/ reflexes EDNJ 07/25 22:16 Order name: Basic Metabolic Panel EDNJ 07/25 22:16 Order name: CBC with Automated Diff EDMS 07/25 22:16 Order name: Creatine Phosphokinase EDNJ 07/25 22:16 Order name: Magnesium EDNJ 07/25 22:16 Order name: Phosphorus EDNJ 07/25 22:16 Order name: Thyroid Stimulating Hormone EDNJ 07/25 22:17 Order name: Procalcitonin EDNJ 07/25 19:03 Order name: XRAY Chest (1 view); Complete Time: 19:46 3 07/25 22:16 Order name: CONS Physician Consult EDNJ 07/25 19:03 Order name: Cardiac monitoring; Complete Time: 19:11 3 07/25 19:03 Order name: EKG - Nurse/Tech; Complete Time: 19:11 3 07/25 19:03 Order name: IV Saline Lock; Complete Time: 19:36 3 07/25 19:03 Order name: Labs collected and sent; Complete Time: 19:36 3 07/25 19:03 Order name: O2 Per Protocol; Complete Time: 19:27 3 07/25 19:03 Order name: O2 Sat Monitoring; Complete Time: 19:27 sp3 Administered Medications: 20:33 Drug: Cefepime IVPB 1 grams IVPB at 200 ml/hr once over 30 mins; (mix in NS 100 mL) dd2 Route: IVPB; Rate: 200 ml/hr; Infused Over: 30 mins; Site: right forearm; 20:48 Follow up: Response: No adverse reaction dd2 21:03 Follow up: IV Status: Completed infusion; IV Intake: 110ml dd2 21:09 Drug: vancoMYCIN IVPB 500 mg IVPB once over 1 hrs Route: IVPB; Infused Over: 1 hrs; dd2 Site: right forearm; 21:24 Follow up: Response: No adverse reaction dd2 22:09 Follow up: IV Status: Completed infusion; IV Intake: 100ml dd2 21:09 Drug: Ondansetron IVP 4 mg IVP once; over 2 minutes Route: IVP; Site: right forearm; dd2 21:24 Follow up: Response: No adverse reaction dd2 Disposition Summary: 07/25/24 19:59 Hospitalization Ordered Notes: Hospitalization Status: Inpatient Admission sp3 Provider: Deana Scherer sp3 Location: Telemetry/MedSurg (Inpatient) sp3 Condition: Stable sp3 Problem: an acute exacerbation sp3 Symptoms: have worsened sp3 Bed/Room Type: Standard sp3 Room Assignment: 207(07/25/24 22:35) vk Diagnosis - Dyspnea, pneumonia sp3 Forms: - Medication Reconciliation Form sp3 - SBAR form sp3 - Leadership Thank You Letter sp3 Signatures: Dispatcher [employer] EDChelo Ferguson MD MD sp3 Chetna Ch DIANA, RN RN dd2 Corrections: (The following items were deleted from the chart) 19:04 19:04 BASIC METABOLIC PANEL+C.LAB.BRZ ordered. EDMS EDMS 19:04 19:04 CBC+H.LAB.BRZ ordered. EDMS EDMS 19:04 19:04 HEPATIC FUNCTION+C.LAB.BRZ ordered. EDMS EDMS 19:04 19:04 MAGNESIUM+C.LAB.BRZ ordered. EDMS EDMS 19:04 19:04 PROBNP+C.LAB.BRZ ordered. EDMS EDMS 19:04 19:04 PROTIME (+INR)+COAG.LAB.BRZ ordered. EDMS EDMS 19:04 19:04 Troponin High Sensitivity+C.LAB.BRZ ordered. EDMS EDMS 19:04 19:04 Chest Single View+RAD.RAD.BRZ ordered. EDMS EDMS 19:11 19:11 Influenza Screen (A \T\ B)+BA.LAB.BRZ ordered. EDMS EDMS 19:11 19:11 SARS-COV-2 Antigen Rapid+I.LAB.BRZ ordered. EDMS EDMS 22:35 19:59 sp3 vk
[2024-07-25 20:09] LABS: ALT/SGPT 22 U/L (13-56); AST/SGOT 14 U/L (15-37); Albumin 3.4 g/dL (3.4-5.0); Albumin/Globulin Ratio 0.8 (1.1-1.8); Alkaline Phosphatase 68 U/L (45-117); Anion Gap 18.8 mEq/L (5.0-15.0); BUN Blood Urea Nitrogen 91 mg/dL (7-18); Bicarbonate 21 mEq/L (21-32); Bilirubin Total 0.5 mg/dL (0.2-1.0); Globulin 4.2 g/dL (2.3-3.5); Glomerular Filtration Rate 3 ml/min (=/>90); Glucose Level 122 mg/dL (74-106); Magnesium 1.9 mg/dL (1.6-2.4); NT PRO-BNP 14132 pg/mL (<450); Potassium 4.8 mEq/L (3.5-5.1); Protein, Total 7.6 g/dL (6.4-8.2); Sodium Level 136 mEq/L (136-145); Troponin High Sensitivity 30.6 pg/mL (<58.9)
[2024-07-25] MEDS ORDERED: VANCOMYCIN 500 MG/VIAL ONE (20:10)
[2024-07-25] MEDS ORDERED: NA CHLORIDE 0.9% 250 ML ONE (20:10)
[2024-07-25] MEDS ORDERED: NA CHLORIDE 0.9% 100 ML ONE (20:10)
[2024-07-25] MEDS ORDERED: CEFEPIME 1 GM/VIAL ONE (20:11)
[2024-07-25 20:16] LABS: SARS-CoV-2 Antigen CONTROL BLUE LINE VIS/BG OK; SARS-CoV-2 Antigen Rapid Res Negative (Negative)
[2024-07-25 20:23] LABS: Bilirubin Direct < 0.2 mg/dL (0-0.2); Bilirubin Indirect, Calculated 0.3 mg/dL (0.2-0.8)
[2024-07-25] MEDS ORDERED: ONDANSETRON 4 MG/2 ML VIAL ONE (21:04)
[2024-07-25] MEDS ORDERED: ACETAMINOPHEN 325 MG TABLET PO PRN (22:10)
[2024-07-25] MEDS ORDERED: ALBUTEROL 2.5 MG/3 ML NEB SOL NEB PRN (22:10)
--- NOTE | 2024-07-25 22:21 | P.HP ---
Certification for Inpatient Patient admitted to: Observation With expected LOS: <2 Midnights <Eli Hwang - Last Filed: 07/25/24 22:15> Patient History Date of Service: 07/25/24 Reason for admission: pneumonia History of Present Illness: 79-year-old woman with a past medical history significant for ESRD on HD, and HTN presented to the emergency department complaining of shortness of breath x 2 days. The patient's family members are present at bedside. The patient is alert, and oriented x 3. She states she began having shortness of breath 2 days ago, but since this time her dyspnea has become progressively worsened. The patient states she now has a dry cough. The patient is a never smoker. Patient is not on home oxygen. She has not done anything to improve her symptoms, and states nothing worsens. The patient denies fever, and urinary symptoms. She states her HD schedule is . Home medications list reviewed: Yes - Past Medical/Surgical History Diabetic: No -: ESRD (Dr. Dunbar/ Dr. Zarate) -: HTN -: hysterectomy -: lumpectomy -: cataract surgery Psychosocial/ Personal History: Patient lives at home and is . - Family History Mother -: Hypertension, Kidney disease Father -: Hypertension, Kidney disease - Social History Smoking Status: Never smoker Alcohol use: No CD- Drugs: No Caffeine use: Yes <Eli Hwang - Last Filed: 07/25/24 22:15> Date of Service: 07/25/24 <Deana Scherer - Last Filed: 07/26/24 02:56> Allergies aspirin [From Percodan] Adverse Reaction (Verified 05/07/23 23:23) hallucination oxycodone [From Percodan] Adverse Reaction (Verified 05/07/23 23:23) hallucination Home Medications: Atorvastatin Calcium [Lipitor*] 20 mg PO BEDTIME #30 tab 06/27/22 Docusate [Colace Cap*] 100 mg PO BID #60 cap 07/23/23 Ubidecarenone [Coenzyme Q10*] 200 mg PO DAILY #30 cap 07/23/23 Vitamin D [Drisdol*] 50,000 unit PO Q7D@0900 #4 cap 07/23/23 levoFLOXacin [Levaquin*] 500 mg PO Q48H #4 tab 07/23/23 Sacubitril/Valsartan [Entresto 24 mg-26 mg Tablet] 1 tab PO BID #60 tab 06/01/24 carvediloL [Coreg*] 12.5 mg PO BID 6AM 6PM #60 tab 06/01/24 Amlodipine [Norvasc] 10 mg PO DAILY 07/26/24 Review of Systems Respiratory: Cough (dry), Shortness of Breath, SOB with Excertion <Hwang,Eli Q - Last Filed: 07/25/24 22:15> Physical Examination - Vital Signs Temperature: 97.9 F Blood Pressure: 168/66 Pulse: 82 Respirations: 18 Pulse Ox (%): 100 (nasal cannula) - Physical Exam General: Alert, Oriented x3 HEENT: Atraumatic, Normocephalic Neck: JVD not distended Respiratory: Crackles/rales (Bilateral lungs) Cardiovascular: No edema, Regular rate/rhythm, No gallops, No rubs, No murmurs Gastrointestinal: Normal bowel sounds, Non-distended, No tenderness Musculoskeletal: No swelling, No erythema, No tenderness, No warmth Neurological: Normal strength at 5/5 x4 extr, Sensation intact - Studies Laboratory Data (last 24 hrs) 07/25/24 07/25/24 07/25/24 19:32 19:32 19:32 WBC 9.10 Hgb 11.0 L Hct 33.5 L Plt Count 253 PT 11.8 INR 1.06 Sodium 136 Potassium 4.8 BUN 91 H Creatinine 12.20 H Glucose 122 H Magnesium 1.9 Total Bilirubin 0.5 AST 14 L ALT 22 Alkaline Phosphatase 68 Microbiology Data (last 24 hrs): 07/25/24 19:32 Nasopharnyx Influenza Type A Antigen Screen - Final 07/25/24 19:32 Nasopharnyx Influenza Type B Antigen Screen - Final <Hwang,Eli Q - Last Filed: 07/25/24 22:15> - Studies Laboratory Data (last 24 hrs) 07/25/24 07/25/24 07/25/24 19:32 19:32 19:32 WBC 9.10 Hgb 11.0 L Hct 33.5 L Plt Count 253 PT 11.8 INR 1.06 Sodium 136 Potassium 4.8 BUN 91 H Creatinine 12.20 H Glucose 122 H Magnesium 1.9 Total Bilirubin 0.5 AST 14 L ALT 22 Alkaline Phosphatase 68 Microbiology Data (last 24 hrs): 07/25/24 19:32 Nasopharnyx Influenza Type A Antigen Screen - Final 07/25/24 19:32 Nasopharnyx Influenza Type B Antigen Screen - Final <Deana Scherer - Last Filed: 07/26/24 02:56> Assessment and Plan - Problems (Diagnosis) (1) End-stage renal disease on hemodialysis Current Visit: No Status: Acute (2) Pneumonia Current Visit: No Status: Acute - Plan Pneumonia: Admit to observation Procalcitonin ordered for morning a.m. labs DuoNebs as needed ordered Continue with oxygen via nasal cannula Given cefepime and vancomycin in ED, blood cultures also collected CXR ~pulmonary edema versus pneumonia ESRD on HD: Nephrology consulted HD potentially tomorrow ( schedule) - Advance Directives Does patient have a Living Will: No Does patient have a Durable POA for Healthcare: No <Eli Hwang - Last Filed: 07/25/24 22:15> Date of Service: 07/25/24 Patient was seen and examined. Events of the last 24 hours have been noted. Spoke with with OMAR regarding patient's clinical picture after evaluating and examining the patient independently. I performed a substantial part of the MDM during this patient's care today. I personally made or approved the documented management plan and acknowledge its risk of complications. I agree with the findings and documentation provided in the OMAR's notes. Continue with current plan of care and consult nephrology for hemodialysis. Aggressively diuresed overnight. Strict blood pressure control. Monitor hemodynamics closely. Patient admitted for observation and may be able to go home after hemodialysis. <Deana Scherer - Last Filed: 07/26/24 02:56>
[2024-07-26] MEDS: HEPARIN 5000 UNIT/ML 1 ML VIAL SQ SCH (00:22)
[2024-07-26] MEDS: IPRATROPIUM BROM 0.5MG/2.5ML NEB SCH (00:36)
[2024-07-26 01:20] VITALS: BMI 27.0
[2024-07-26] MEDS: HYDRALAZINE HCL 20 MG/ML VIAL IV PRN (01:29)
[2024-07-26] MEDS: BENZONATATE 100 MG CAP PO PRN (01:29)
[2024-07-26] MEDS: ONDANSETRON 4 MG/2 ML VIAL IV PRN (02:08)
[2024-07-26 04:58] LABS: Absolute Basophils 0.1 K/uL (0-0.5); Absolute Monocytes 0.8 K/uL (0.1-1.3); Absolute Neutrophil 8.7 K/uL (1.8-8.0); Basophils % 0.6 % (0-1.3); Eosinophils % 0.3 % (0-4.4); Hematocrit 34.2 % (36.0-45.0); Hemoglobin 11.3 g/dL (12.0-15.0); Lymphocytes % 9.5 % (15.3-44.8); MCH 30.7 pg (27.0-35.0); MCHC 32.9 g/dL (32.0-36.0); MCV 93.5 fL (80-100); Monocytes % 7.8 % (3.3-12.3); Neutrophils % 81.8 % (41.7-73.7); Nucleated Red Blood Cells % 0.1 % (0-0); Platelets 255 thou/uL (152-406); RBC Red Blood Cell Count 3.66 M/uL (3.86-4.86); Red Cell Distribution Width 17.7 % (12.1-15.2)
[2024-07-26] MEDS: carvediloL 12.5 MG TAB PO SCH (05:11)
[2024-07-26 05:28] LABS: Anion Gap 21.9 mEq/L (5.0-15.0); Magnesium 1.7 mg/dL (1.6-2.4); Phosphorus 7.2 mg/dL (2.5-4.9); Potassium 4.9 mEq/L (3.5-5.1); Thyroid Stimulating Hormone 0.957 uIU/mL (0.358-3.740)
[2024-07-26] MEDS: AMLODIPINE 10 MG TAB PO SCH (09:00)
[2024-07-26] MEDS: SACUBITRIL/VALSARTAN 24/26 MG TAB PO SCH (09:35)
--- NOTE | 2024-07-26 09:47 | P.CNS ---
Date of Consult: 07/26/24 Reason for Consult: ESRD, dyspnea, labile HTN Requesting Physician: Eli Hwang Chief Complaint: pneumonia History of Present Illness: Pt is a 79-year-old woman AAF with a past medical history significant for ESRD on HD, and chronic labile HTN presented to the emergency department complaining of shortness of breath that started more acutely this weekend and assoc with cough. Pt did dialyze Fri. Pt reports dry cough, pt denies fevers or chills or other viral syndrome symptoms. Pt has has a few admissions this year with acute dsypnea, she has had prior cardiac and pulm evals. She is not on continuous O2 at home any more. Allergies aspirin [From Percodan] Adverse Reaction (Verified 05/07/23 23:23) hallucination oxycodone [From Percodan] Adverse Reaction (Verified 05/07/23 23:23) hallucination Home Medications: Atorvastatin Calcium [Lipitor*] 20 mg PO BEDTIME #30 tab 06/27/22 Docusate [Colace Cap*] 100 mg PO BID #60 cap 07/23/23 Ubidecarenone [Coenzyme Q10*] 200 mg PO DAILY #30 cap 07/23/23 Vitamin D [Drisdol*] 50,000 unit PO Q7D@0900 #4 cap 07/23/23 levoFLOXacin [Levaquin*] 500 mg PO Q48H #4 tab 07/23/23 Sacubitril/Valsartan [Entresto 24 mg-26 mg Tablet] 1 tab PO BID #60 tab 06/01/24 carvediloL [Coreg*] 12.5 mg PO BID 6AM 6PM #60 tab 06/01/24 Amlodipine [Norvasc] 10 mg PO DAILY 07/26/24 - Past Medical/Surgical History Diabetic: No -: ESRD (Dr. Dunbar/ Dr. Zarate) -: HTN -: Diastolic CHF -: DM II -: HLD -: Gout -: hysterectomy -: lumpectomy -: cataract surgery Psychosocial/ Personal History: Patient lives at home and is . - Family History Mother Medical History: Hypertension, Kidney disease Father Medical History: Hypertension, Kidney disease - Social History Smoking Status: Unknown if ever smoked Alcohol use: No CD- Drugs: No Caffeine use: Yes Place of Residence: Home Review of Systems General: Malaise Eyes: Unremarkable ENT: Unremarkable Respiratory: Cough, Shortness of Breath, As per HPI Cardiovascular: As per HPI Gastrointestinal: Unremarkable Genitourinary: Unremarkable Musculoskeletal: Unremarkable Integumentary: Unremarkable Neurological: Unremarkable Physical Examination Temp Pulse Resp BP Pulse Ox 98 F 90 18 172/75 H 96 07/26/24 00:00 07/26/24 05:11 07/26/24 04:00 07/26/24 05:11 07/26/24 00:00 General: Cooperative, Other (Appears chronically ill) HEENT: Atraumatic, Normocephalic, Other (LFNC) Neck: Supple Respiratory: Other (Some scattered rhonchi, no wheezing, reduced BS at bases) Cardiovascular: Other (Mild tachy, cardiac murmur) Gastrointestinal: Soft and benign, Non-distended, No tenderness Musculoskeletal: No swelling, No contractures, Other (Lt forearm AV access with bruit) Integumentary: No rashes Neurological: Normal speech, Normal tone, Normal affect Laboratory Data (last 24 hrs) 07/25/24 07/25/24 07/25/24 19:32 19:32 19:32 WBC 9.10 Hgb 11.0 L Hct 33.5 L Plt Count 253 PT 11.8 INR 1.06 Sodium 136 Potassium 4.8 BUN 91 H Creatinine 12.20 H Glucose 122 H Magnesium 1.9 Total Bilirubin 0.5 AST 14 L ALT 22 Alkaline Phosphatase 68 Conclusions/Impression: 1. End-stage renal disease, on dialysis MWF. Will perform HD today for clearance and UF 2. Azotemia -will clear with dialysis and review OP clearances, Kt/v 3. Hypertensive urgency, possible acute cardiogenic pulm edema -will ask staff not to hold BP meds prior to HD, will assess post HD BP, may titrate anti hypertensive doses 4. Acute on chronic diastolic CHF -as mentioned above Abbe Zarate MD, ANGELINA
[2024-07-26] MEDS ORDERED: CALCIUM CARBONATE CHEW 500MG TAB PO PRN (13:18)
--- NOTE | 2024-07-26 17:45 | P.PN ---
Subjective Date of Service: 07/26/24 Chief Complaint: pneumonia Presented with shortness of breath, history of end-stage renal disease on hemodialysis, Review of Systems 10 point review of system negative unless listed in HPI Physical Examination - Vital Signs Reviewed - Physical Exam General: Alert, Oriented x3 HEENT: Atraumatic, Normocephalic Respiratory: Crackles/rales Cardiovascular: No edema, Regular rate/rhythm, Gastrointestinal: Normal bowel sounds, Non-distended, No tenderness Musculoskeletal: No swelling, No erythema, No tenderness, No warmth Neurological: Normal strength at 5/5 x4 extr, Sensation intact - Assessment and Plan - Problems (Diagnosis) (1) End-stage renal disease on hemodialysis Current Visit: No Status: Acute (2) acute hypoxic respiratory failure secondary to Pneumonia Current Visit: No Status: Acute - Plan Admit to observation Procalcitonin ordered for morning a.m. labs DuoNebs as needed ordered Continue with oxygen via nasal cannula Given cefepime and vancomycin in ED, blood cultures also collected CXR ~pulmonary edema versus pneumonia ESRD on HD: Nephrology consulted HD potentially tomorrow ( schedule) - Advance Directives Does patient have a Living Will: No Does patient have a Durable POA for Healthcare: No Time with patient 25 minutes Physical Examination - Vital Signs Temperature: 97.3 F Blood Pressure: 154/72 Pulse: 77 Respirations: 16 Pulse Ox (%): 96 - Studies Laboratory Data (last 24 hrs) 07/25/24 07/25/24 07/25/24 19:32 19:32 19:32 WBC 9.10 Hgb 11.0 L Hct 33.5 L Plt Count 253 PT 11.8 INR 1.06 Sodium 136 Potassium 4.8 BUN 91 H Creatinine 12.20 H Glucose 122 H Magnesium 1.9 Total Bilirubin 0.5 AST 14 L ALT 22 Alkaline Phosphatase 68 Microbiology Data (last 24 hrs): 07/25/24 19:32 Nasopharnyx Influenza Type A Antigen Screen - Final 07/25/24 19:32 Nasopharnyx Influenza Type B Antigen Screen - Final Assessment And Plan Discharge Plan: Home - Code Status/Comfort Care Code Status: Full Code Critical Care: No Time Spent Managing PTS Care (In Minutes): 35
--- NOTE | 2024-07-26 17:52 | P.PN ---
Date of Service: 07/26/24 Subjective Presented with shortness of breath, history of end-stage renal disease on hemodialysis, Review of Systems 10 point review of system negative unless listed in HPI Physical Examination - Vital Signs Reviewed - Physical Exam General: Alert, Oriented x3 HEENT: Atraumatic, Normocephalic Respiratory: Crackles/rales Cardiovascular: No edema, Regular rate/rhythm, Gastrointestinal: Normal bowel sounds, Non-distended, No tenderness Musculoskeletal: No swelling, No erythema, No tenderness, No warmth Neurological: Normal strength at 5/5 x4 extr, Sensation intact - Assessment and Plan - Problems (Diagnosis) End-stage renal disease on hemodialysis fluid volume overload acute hypoxic respiratory failure secondary to pulmonary edema Prerenal azotemia Acute on chronic diastolic heart failure Current Visit: No Status: Acute - Plan Admit to observation Nephrology consult for hemodialysis Friday Procalcitonin ordered for morning a.m. labs DuoNebs as needed ordered Continue with oxygen via nasal cannula Given cefepime and vancomycin in ED, blood cultures also collected CXR ~pulmonary edema versus pneumonia Resume home meds for hypertension ESRD on HD: Nephrology consulted HD potentially ( schedule) - Advance Directives Does patient have a Living Will: No Does patient have a Durable POA for Healthcare: No Time with patient 25 minutes
[2024-07-26] MEDS: ATORVASTATIN 20 MG TAB PO SCH (21:18)
--- NOTE | 2024-07-27 10:47 | RAD REPORT ---
EXAM: Chest Pa And Lat (2 Views) HISTORY: re-eval pleural effusions COMPARISON: 07/25/2024 FINDINGS: LUNGS/PLEURA: Improved aeration of the lung bases though there are still residual bilateral airspace disease. Tiny left pleural effusion. MEDIASTINUM: The mediastinal silhouette is within normal limits. CARDIAC: Similar size and configuration. UPPER ABDOMEN: No significant abnormality. BONES: No acute fracture. LINES/TUBES/OTHER: N/A IMPRESSION: Improved aeration from prior and some residual basilar opacities. Small left pleural effusion which h as likely decreased from prior.
--- NOTE | 2024-07-27 11:18 | P.PN ---
(S) Pt reports improvement in dyspnea but still is on O2, repeat CXR findings noted, no CP reported Vitals reviewed in the EMR General: Cooperative, Other (Appears chronically ill) HEENT: Atraumatic, Normocephalic, Other (LFNC) Neck: Supple Respiratory: Other (non tachypnec, no wheezing, some bibasilar rales) Cardiovascular: Other (Non tachy, cardiac murmur) Gastrointestinal: Soft and benign, Non-distended, No tenderness Musculoskeletal: No swelling, No contractures, Other (Lt forearm AV access with bruit) Integumentary: No rashes Neurological: Normal speech, Normal tone, Normal affect Laboratory Data (last 24 hrs) 07/25/24 07/25/24 07/25/24 19:32 19:32 19:32 WBC 9.10 Hgb 11.0 L Hct 33.5 L Plt Count 253 PT 11.8 INR 1.06 Sodium 136 Potassium 4.8 BUN 91 H Creatinine 12.20 H Glucose 122 H Magnesium 1.9 Total Bilirubin 0.5 AST 14 L ALT 22 Alkaline Phosphatase 68 Conclusions/Impression: 1. End-stage renal disease, on dialysis MWF. HD performed yesterday, no new labs, no urgent indication to repeat HD today 2. Azotemia -will clear with dialysis and review OP clearances, Kt/v 3. Hypertensive urgency, possible acute cardiogenic pulm edema -post HD BP better, cont home meds, refill Coreg as pt reports ran out Sun 4. Acute on chronic diastolic CHF -clinically and radiographically improved, assess O2 with exertion, possibly home today, will review EDW at her unit. Cont Entresto, may titrate dose as OP Abbe Zarate MD, ANGELINA
--- NOTE | 2024-07-27 12:13 | P.DS ---
Admission Date: 07/26/24 Discharge Date: 07/27/24 Reason for Admission: pneumonia - ESRD overload Consultations: Dr. Zarate Brief History of Present Illness: 79-year-old woman with a past medical history significant for ESRD on HD, and HTN presented to the emergency department complaining of shortness of breath x 2 days. The patient's family members are present at bedside. The patient is alert, and oriented x 3. She states she began having shortness of breath 2 days ago, but since this time her dyspnea has become progressively worsened. The patient states she now has a dry cough. The patient is a never smoker. Patient is not on home oxygen, although she used to have it. Ms. Chou states she has been out of her Entresto. She has not done anything to improve her symptoms, and states nothing worsens it. The patient denies fever, swelling, or urinary symptoms. She states her HD schedule is . Hospital Course: Ms. Chou has ESRD with HD scheduled Friday. She has had some shortness of breath in the past and at one time was on home O2. She was seen by pulmonology, on an outpatient basis, who stated she no longer needed O2 at home. We will do a trial pulse ox on room air to see if she qualifies for home O2 at this time. On arrival to the emergency department, she was noted to be quite hypertensive but then states she has been out of her Entresto. A refill will be sent. Status post dialysis yesterday, her symptoms and chest x- ray imaging have improved. She states she is at her baseline. We will evaluate need for home O2, patient is advised to follow-up with cardiology, and n ephrology in the next 1 to 2 weeks. She should attend her chair time at her outpatient dialysis clinic tomorrow. <Carrie Garza - Last Filed: 07/27/24 12:32> Admission Date: 07/26/24 Discharge Date: 07/27/24 Hospital Course: Her symptom as well as her chest x-ray significantly improved after ultrafiltr ation during hemodialysis x 2. Discharge diagnosis Bilateral pleural effusion and pulmonary edema secondary to volume overload related to #2 ESRD on hemodialysis <EMANUEL Plasencia - Last Filed: 07/27/24 16:12> Disposition: [place] HOME/HOME HEALTH CARE Discharge Condition: GOOD Vital Signs/Physical Exam: Temp Pulse Resp BP Pulse Ox 97.9 F 68 16 138/72 99 07/27/24 08:00 07/27/24 08:38 07/27/24 08:00 07/27/24 08:38 07/27/24 08:00 General: Alert, In no apparent distress, Oriented x3 HEENT: Atraumatic, Normocephalic Neck: Supple, 2+ carotid pulse no bruit Respiratory: Normal air movement, Other (On O2 at 2L) Cardiovascular: No edema, Regular rate/rhythm, Systolic murmur Capillary refill: <2 Seconds Gastrointestinal: Normal bowel sounds Musculoskeletal: No clubbing Integumentary: No rashes Neurological: Normal speech, Normal tone, Normal affect Lymphatics: No axilla or inguinal lymphadenopathy External genitalia: Deferred Rectal: Deferred Laboratory Data at Discharge: WBC 10.70 thou/uL (4.3-10.9) 07/26/24 04:34 Hgb 11.3 g/dL (12.0-15.0) L 07/26/24 04:34 Hct 34.2 % (36.0-45.0) L 07/26/24 04:34 Plt Count 255 thou/uL (152-406) 07/26/24 04:34 PT 11.8 SECONDS (9.4-12.5) 07/25/24 19:32 INR 1.06 07/25/24 19:32 Sodium 136 mEq/L (136-145) 07/26/24 04:34 Potassium 4.9 mEq/L (3.5-5.1) 07/26/24 04:34 BUN 95 mg/dL (7-18) H 07/26/24 04:34 Creatinine 12.70 mg/dL (0.55-1.02) H 07/26/24 04:34 Glucose 175 mg/dL (74-106) H 07/26/24 04:34 Phosphorus 7.2 mg/dL (2.5-4.9) H 07/26/24 04:34 Magnesium 1.7 mg/dL (1.6-2.4) 07/26/24 04:34 Total Bilirubin 0.5 mg/dL (0.2-1.0) 07/25/24 19:32 AST 14 U/L (15-37) L 07/25/24 19:32 ALT 22 U/L (13-56) 07/25/24 19:32 Alkaline Phosphatase 68 U/L (45-117) 07/25/24 19:32 <Garza,Carrie Mu - Last Filed: 07/27/24 12:32> Vital Signs/Physical Exam: Temp Pulse Resp BP Pulse Ox 97.6 F 72 16 113/47 L 100 07/27/24 12:00 07/27/24 12:00 07/27/24 12:00 07/27/24 12:00 07/27/24 12:00 Laboratory Data at Discharge: WBC 10.70 thou/uL (4.3-10.9) 07/26/24 04:34 Hgb 11.3 g/dL (12.0-15.0) L 07/26/24 04:34 Hct 34.2 % (36.0-45.0) L 07/26/24 04:34 Plt Count 255 thou/uL (152-406) 07/26/24 04:34 PT 11.8 SECONDS (9.4-12.5) 07/25/24 19:32 INR 1.06 07/25/24 19:32 Sodium 136 mEq/L (136-145) 07/26/24 04:34 Potassium 4.9 mEq/L (3.5-5.1) 07/26/24 04:34 BUN 95 mg/dL (7-18) H 07/26/24 04:34 Creatinine 12.70 mg/dL (0.55-1.02) H 07/26/24 04:34 Glucose 175 mg/dL (74-106) H 07/26/24 04:34 Phosphorus 7.2 mg/dL (2.5-4.9) H 07/26/24 04:34 Magnesium 1.7 mg/dL (1.6-2.4) 07/26/24 04:34 Total Bilirubin 0.5 mg/dL (0.2-1.0) 07/25/24 19:32 AST 14 U/L (15-37) L 07/25/24 19:32 ALT 22 U/L (13-56) 07/25/24 19:32 Alkaline Phosphatase 68 U/L (45-117) 07/25/24 19:32 <Plasencia,IL Ran - Last Filed: 07/27/24 16:12> Diet: Renal Activity: Fall precautions <Carrie Garzalen - Last Filed: 07/27/24 12:32> <EMANUEL Plasencia - Last Filed: 07/27/24 16:12> Home Medications: Sacubitril/Valsartan [Entresto 24 mg-26 mg Tablet] 1 tab PO BID #60 tab 06/01/24 Amlodipine [Norvasc*] 10 mg PO DAILY #90 tab 07/27/24 Atorvastatin Calcium [Lipitor*] 20 mg PO BEDTIME #90 tab 07/27/24 Carvedilol [Coreg] 12.5 mg PO BID #180 tab 07/27/24 Sacubitril/Valsartan [Entresto 24 mg-26 mg Tablet] 1 tab PO BID #90 tab 07/27/24 New Medications: Carvedilol [Coreg] 12.5 mg PO BID #180 tab Sacubitril/Valsartan [Entresto 24 mg-26 mg Tablet] 1 tab PO BID #90 tab Atorvastatin Calcium [Lipitor*] 20 mg PO BEDTIME #90 tab Amlodipine [Norvasc*] 10 mg PO DAILY #90 tab Physician Discharge Instructions: Brief History of Present Illness: 79-year-old woman with a past medical history significant for ESRD on HD, and HTN presented to the emergency department complaining of shortness of breath x 2 days. The patient's family members are present at bedside. The patient is al ert, and oriented x 3. She states she began having shortness of breath 2 days ago, but since this time her dyspnea has become progressively worsened. The patient states she now has a dry cough. The patient is a never smoker. Patient is not on home oxygen, although she used to have it. Ms. Chou states she has been out of her Entresto. She has not done anything to improve her symptoms, and states nothing worsens it. The patient denies fever, swelling, or urinary symptoms. She states her HD schedule is . Hospital Course: Ms. Chou has ESRD with HD scheduled Friday. She has had some shortness of breath in the past and at one time was on home O2. She was seen by pulmonology, on an outpatient basis, who stated she no longer needed O2 at home. We will do a trial pulse ox on room air to see if she qualifies for home O2 at this time. On arrival to the emergency department, she was noted to be quite hypertensive but then states she has been out of her Entresto. A refill will be sent. Status post dialysis yesterday, her symptoms and chest x- ray imaging have improved. She states she is at her baseline. We will evaluate need for home O2, patient is advised to follow-up with cardiology, and nephrology in the next 1 to 2 weeks. She should attend her chair time at her outpatient dialysis clinic tomorrow. Room air SpO2 96%, does not qualify at this time for home Oxygen Followup: Abbe Zarate [ACTIVE - CAN ADMIT] - 1-2 Weeks Ariel Morfin DO [Primary Care Provider] - 1-2 Weeks
[2024-07-27 13:04] VITALS: TEMP 97.6
[2024-07-27 13:05] VITALS: BP 113/47
[2024-07-27 17:03] VITALS: O2SAT 94
== END 2024-07-27 15:20 | disposition home health service (06) | DRG 291 ==
LOC: ER 18:56 → ERHOLD 22:10 → 2ND 22:45 → OBSVTOIN 07-26 17:47
PROVIDERS: ADMIT Hospitalist; ATTEND Internal Medicine
PROC: 5A1D70Z Performance of Urinary Filtration, Intermittent, Less than 6 Hours Per Day (ICD-10-PCS; principal; 2024-07-26)
DX: I13.2 Hypertensive heart and chronic kidney disease with heart failure and with stage 5 chronic kidney disease, or end stage renal disease (principal); I50.33 Acute on chronic diastolic (congestive) heart failure; J18.9 Pneumonia, unspecified organism; N18.6 End stage renal disease; J96.01 Acute respiratory failure with hypoxia; E11.22 Type 2 diabetes mellitus with diabetic chronic kidney disease; I16.0 Hypertensive urgency; Z99.2 Dependence on renal dialysis; Z88.5 Allergy status to narcotic agent; Z88.6 Allergy status to analgesic agent; Z11.52 Encounter for screening for COVID-19; Z99.81 Dependence on supplemental oxygen; Z79.02 Long term (current) use of antithrombotics/antiplatelets; Z79.899 Other long term (current) drug therapy; Z90.710 Acquired absence of both cervix and uterus
CPT/HCPCS: 36415; 71045; 71046; 80048; 80076; 82550; 83605; 83735; 83880; 84100; 84145; 84443; 84484; 85025; 85610; 87040; 87804; 87811; 90935; 94640; 94760; 96365; 96367; 96375; 99285; G0378; J0360; J0692; J1644; J2405; J7050; J7644

== ENCOUNTER 2024-09-29 19:19 | Inpatient (IN) | payer OTHER ==
--- OUTSIDE RECORDS SUMMARY | 2024-09-29 19:22 | XMS REPORT | Continuity of Care Document ---
Author Name Unknown Address [address] [facility] [address] [place] [address] [facility] Address [address] [facility] [address] [place] [address] Care Team Providers Care Nutrition Helper Name Role Phone ALLAN MORFIN Attending Clinician Unavailable KIM KIRK Attending Clinician UnavailCATINA Turner Attending Clinician UnavailKOSTA Rosenthal Attending Clinician Unavailable Julianna Schaffer Attending Clinician Unavailable JULES DUNN Attending Clinician Unavailable ADRIENNE SOTO Attending Clinician Unavailable EVARISTO OSUNA Attending Clinician Unavail able Julianna Schaffer Admitting Clinician Unavailable Payers Payer Name Policy Type Policy Number Effective Date Expirati on Date Source [employer] [id number] 2024 00:00:00 MEDICARE PART A \T\ B [id number] 2010 00:00:00 Problems Condition Name Condition Details Condition Category Status Onset Date Resolution Date Last Treatment Date Treating Clinician Comments Source Chronic bilateral low back pain without sciatica Chronic bilateral low back pain without sciatica Disease Active 09-21 00:00: 00 [facility]le [facility] discharge follow-up Hospital discharge follow-up Disease Active 2023-08 00:00: 00 Adele Seybold - Externa l Chronic systolic CHF (congestiv e heart failure) (multi HCC) Chronic systolic CHF (congestiv e heart failure) (multi HCC) Disease Active 2023-08 2-09 00:00: 00 Adele Seybold - Externa l Arthritis Arthritis Disease Active 2023-08 0-22 00:00: 00 Adele Seybold - Externa l History of cataract History of cataract Disease Active - 00:00: 00 Adele Seybold - Externa l Osteopenia of multiple sites Osteopenia of multiple sites Disease Active 2 00:00: 00 Adele Seybold - Externa l History of pneumonia History of pneumonia Disease Active 2022-08 00:00: 00 Adele Seybold - Externa l PVD (periphera l vascular disease) PVD (periphera l vascular disease) Disease Active 2022-08 0-10 00:00: 00 Adele Trevizoold - Externa l Risk for falls Risk for falls Disease Active 2022-08 0- 00:00: 00 Adele Seybold - Externa l Well adult exam Well adult exam Disease Active 2022-08 0- 00:00: 00 Adele Seybold - Externa l Mixed hyperlipid emia Mixed hyperlipid emia Disease Active 2022-08 0 00:00: 00 Adele Seybold - Externa l 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, 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, respirator y failure (multi HCC) Disease Active 2022-08 0 00:00: 00 Adele Seybold - Externa l HTN (hypertens ion) HTN (hypertens ion) Disease Active 05-01 00:00: 00 Adele Seybold - Externa l GERD (gastroeso phageal reflux disease) GERD (gastroeso phageal reflux disease) Disease Active 05-01 00:00: 00 Adele Backybold - Externa l Chronic respirator y failure with hypoxia, on home O2 therapy (multi HCC) Chronic respirator y failure with hypoxia, on home O2 therapy (multi HCC) Disease Active 05-01 00:00: 00 Adele Sebishopold - Externa l COVID-19 long hauler COVID-19 [...] s DA Active U 03-23 00:00: 00 [facility] Oxycodon e-Aspiri n Propensi ty to adverse reaction s Active Hallucinatio ns 11-14 00:00: 00 percodan Adele Seybold - Externa l OXYCODON E HCL-OXYC ODONE- A DRUG Active High Hallucinates 11-14 00:00: 00 [facility] Calcium Acetylsa licylate Propensi ty to adverse reaction s Active 04-22 00:00: 00 Other reaction( s): hallucina tion, Rash Adele Seybold - Externa l Oxycodon e Propensi ty to adverse reaction s Active 04-22 00:00: 00 Other reaction( s): hallucina tion, Rash Adele Seybold - Externa l Social History Social Habit Start Date Stop Date Quantity Comments Source Gender identity Sophie Bahena - External Sexual orientation K christiano Bahena - External ASSERTION Not Adele Bahena - External History of Occupation Adele Bahena - External Alcoholic beverage intake 2024-09-21 00:00:00 2024-09-21 00:00:00 Lifetime non-drinker (finding) Adele Bahena - [...] Source Colchicine (Colcrys) 0.6 MG oral Tablet 09-21 09:51: 58 Yes TAKE 1 TABLET BY MOUTH 4 TIMES A DAY NEEDED FOR GOUT Adele Shruti - Externa l Calcitriol 0.25 MCG oral Capsule 09-21 09:51: 58 Yes .25ug Take 1 capsule (0.25 mcg total) by mouth three times a week On dialysis days. Adele Shruti Cummingsa l Calcium Acetate, Phos Binder, 667 MG oral Tablet 2023-08 09:07: 02 08-02 00:00 :00 No 1{tbl} Take 1 tablet by mouth 3 times daily (before meals). Adele Cummingsa l Colchicine (Colcrys) 0.6 MG oral Tablet 2023-08 08:51: 55 Yes TAKE 1 TABLET BY MOUTH 4 TIMES A DAY NEEDED FOR GOUT Adele Shruti - Externa l Calcitriol 0.25 MCG oral Capsule 2023-08 08:51: 55 Yes .25ug Take 1 capsule (0.25 mcg total) by mouth three times a week On dialysis days. Adele Cummingsa l Atorvastati n Calcium 10 MG oral Tablet 2023-08 08:50: 01 08-02 00:00 :00 No [id number] 10mg QD Take 1 tablet (10 mg total) by mouth nightly. Adele Bahena - Zoilaa l Atorvastati n Calcium 20 MG oral Tablet 2023-08 2-03 00:00: 00 Yes 20mg Take 1 tablet (20 mg total) by mouth at bedtime. Adele galvan Colchicine (Colcrys) 0.6 MG oral Tablet 2023-08 16:24: 44 Yes TAKE 1 TABLET BY MOUTH 4 TIMES A DAY NEEDED FOR GOUT Adele galvan Atorvastati n Calcium 10 MG oral Tablet 2023-08 16:24: 44 Yes [id number] 10mg QD Take 1 tablet (10 mg [...] times a week On days. Adele galvan Hydrocortis one 2.5 % apply externally Cream 2023-08 0 00:00: 00 Yes Adele galvan Ondansetron (ZOFRAN) 4 MG oral TABLET DISPERSIBLE 2023-08 00:00: 00 09-21 00:00 :00 No DISSOLVE 1 TABLET IN MOUTH EVERY 8 HOURS NEEDED Adele galvan diazePAM 2 MG oral Tablet 2023-08 00:00: 00 08-02 00:00 :00 No 2mg [id number] 3D Take 1 tablet (2 mg total) by mouth every 8 hours as needed. Adele galvan Carvedilol 12.5 MG oral Tablet 2023-08 0-11 00:00: 00 12-02 04:59 :00 No 12.5mg Take 1 tablet (12.5 mg total) by mouth in the morning and 1 tablet (12.5 mg total) in the evening. Take with meals. Adele galvan Entresto 24-26 MG oral Tablet 2023-08 0-08 00:00: 00 Yes 1{tbl} Q.5D Take 1 tablet by mouth 2 times daily. Adele galvan Colchicine (Colcrys) 0.6 MG oral Tablet 05-13 09:01: 42 Yes TAKE 1 TABLET BY MOUTH 4 TIMES A DAY NEEDED FOR GOUT Adele galvan Atorvastati n Calcium 10 MG oral Tablet 05-13 09:01: 42 Yes [id number] 10mg QD Take 1 tablet (10 mg [...] 02-09 08:29: 34 02-09 00:00 :00 No [id number] 81mg Take 1 tablet (81 mg total) by mouth daily. Adele galvan Colchicine (Colcrys) 0.6 MG oral Tablet 02-09 08:24: 06 Yes TAKE 1 TABLET BY MOUTH 4 TIMES A DAY NEEDED FOR GOUT Adele galvan Atorvastati n Calcium 10 MG oral Tablet 02-09 08:24: 06 Yes [id number] 10mg Take 1 tablet (10 mg total) by mouth nightly. Adele galvan Calcium Acetate, Phos Binder, 667 MG oral Tablet 02-09 08:24: 06 Yes 1{tbl} Take 1 tablet by mouth 3 times daily (before meals). Adele Batista l Calcitriol 0.25 MCG oral Capsule 18 08:24: 06 Yes .25ug Take 1 capsule (0.25 mcg total) by mouth three times a week On dialysis days. Adele Backbishopezekiel Batista l Colchicine (Colcrys) 0.6 MG oral Tablet 11-24 10:41: 33 Yes TAKE 1 TABLET BY MOUTH 4 TIMES A DAY NEEDED FOR GOUT Adele Backbishopezekiel Batista l Aspirin 81 MG oral Tablet Delayed Response 11-24 10:41: 33 Yes [id number] 81mg Take 1 tablet (81 mg total) by mouth daily. Adele Backbishopezekiel Gutiérrez Zoilaadelia l Atorvastati n Calcium 10 MG oral Tablet 11-24 10:41: 33 Yes [id number] 10mg Take 1 tablet (10 mg total) by mouth nightly. Adele Shruti Gutiérrez Externa l Calcium Acetate, Phos Binder, 667 MG oral Tablet 11-24 10:41: 33 Yes 1{tbl} Take 1 tablet by mouth 3 times daily (before meals). Adele Backbishopezekiel Batista l Calcitriol 0.25 MCG oral Capsule 11-24 10:41: 33 Yes .25ug Take 1 capsule (0.25 mcg total) by mouth three times a week On dialysis days. Adele Shruti Brock Zoilaadelia l Colchicine (Colcrys) 0.6 MG oral Tablet 11-10 09:01: 31 Yes TAKE 1 TABLET BY MOUTH 4 TIMES A DAY NEEDED FOR GOUT Adele Backrobert Brock Zoilaadelia l Aspirin 81 MG oral Tablet Delayed Response 11-10 09:01: 31 Yes [id number] 81mg Take 1 tablet (81 mg total) by mouth daily. Adele Shruti Brock Externa l Atorvastati n Calcium 10 MG oral Tablet 11-10 09:01: 31 Yes [id number] 10mg Take 1 tablet (10 mg total) by mouth nightly. Adele Shruti Gutiérrez Externa l Calcium Acetate, Phos Binder, 667 MG oral Tablet 11-10 09:01: 31 Yes 1{tbl} Take 1 tablet by mouth 3 times daily (before meals). Adele Seybold - Externa l Calcitriol 0.25 MCG oral Capsule 11-10 09:01: 31 Yes .25ug Take 1 capsule (0.25 mcg total) by mouth three times a week On dialysis days. Adele galvan Famotidine 40 MG oral Tablet 10-30 00:00: 00 09-21 00:00 :00 No 40mg Take 1 tablet (40 mg total) by mouth at bedtime. Adele galvan Benzonatate (Tessalon Perles) 100 MG oral Capsule 00:00: 00 11-10 00:00 :00 No [id number] 100mg Q.[id number] 3D Take 1 capsule (100 mg total) [...] Tablet Delayed Response 09-25 10:58: 01 Yes [id number] 81mg Take 1 tablet (81 mg total) by mouth daily. Adele galvan Atorvastati n Calcium 10 MG oral Tablet 09-25 10:58: 01 Yes [id number] 10mg Take 1 tablet (10 mg total) by mouth nightly. Adele galvan Colchicine (Colcrys) 0.6 MG oral Tablet 2022-08 11:49: 06 Yes TAKE 1 TABLET BY MOUTH 4 TIMES A DAY NEEDED FOR GOUT Adele galvan Aspirin 81 MG oral Tablet Delayed Response 2022-08 11:49: 06 Yes [id number] 81mg Take 1 tablet (81 mg total) by mouth daily. Adele galvan Atorvastati n Calcium 10 MG oral Tablet 2022-08 11:49: 06 Yes [id number] 10mg Take 1 tablet (10 mg total) by mouth nightly. Adele galvan Albuterol HFA 108 (90 Base) MCG/ACT IN AERS 2022-08 00:00: 00 Yes [id number] 2{puff} Q.25D Inhale 2 puffs into the [...] 100 MG oral Capsule 2022-08 00:00: 00 09-21 00:00 :00 No 100mg Q.5D Take 1 capsule (100 mg total) by mouth 2 times daily. Adele galvan Aspirin 81 MG oral Tablet Delayed Response 2022-08 10:32: 53 Yes [id number] 81mg Take 1 tablet (81 mg total) by mouth daily. Adele galvan Atorvastati n Calcium 10 MG oral Tablet 2022-0810 10:32: 53 Yes [id number] 10mg Take 1 tablet (10 mg total) [...] 25 MG oral Tablet 9-07 00:00: 00 08-02 00:00 :00 No [id number] 1 tablet by mouth on FRIDAY, FRIDAY AND FRIDAY AT BEDTIME . Adele galvan Amlodipine Besylate 10 MG oral Tablet 7-19 00:00: 00 09-21 00:00 :00 No 10mg QD Take 1 tablet (10 mg total) by mouth daily. Adele galvan Atenolol 25 MG oral Tablet 7-14 00:00: 00 05-01 00:00 :00 No 25mg Take 1 tablet (25 mg total) by mouth three times a week 1 tablet by mouth on FRIDAY, FRIDAY AND FRIDAY AT BEDTIME . Adele galvan Pantoprazol e Sodium 40 MG oral Tablet Delayed Response 4-24 00:00: 00 Yes 40mg QD Take 1 tablet (40 mg total) by mouth daily. Adele galvan Immunizations Ordered Immunization Name Filled Immunization Name Date Status Comments Source Influenza Virus Vaccine, High Dose, Age 65 And Up Unknown Completed Adele Gutiérrez External Influenza Virus Vaccine, High Dose, Age 65 And Up Unknown Completed Adele Gutiérrez External Influenza Virus Vaccine, High Dose, Age 65 And Up Unknown Completed Adele Gutiérrez External Influenza Virus Vaccine, High Dose, Age 65 And Up Unknown Completed Adele Bahena - External Vital Signs Vital Name Observation Time Observation Value Comments S oleg Systolic blood pressure 2024-09-21 15:47:00 138 mm[Hg] Adele Thakkar ld - External Diastolic blood pressure 2024-09-21 15:47:00 78 mm[Hg] Adele sullivan - External Heart rate 2024-09-21 15:47:00 80 /min Casper Bahena - External Body temperature 2024-09-21 15:47:00 36.5 [place] Adele Bahena - External Respiratory rate 2024-09-21 15:47:00 16 /min Adele Bahena - External Body height 2024-09-21 15:47:00 149.9 cm Sophie ey Seybold - External Body weight 2024-09-21 15:47:00 61.236 kg Sophie ey Seybold - External BMI 2024-09-21 15:47:00 27.27 kg/m2 Sophie ey Seybold - External Oxygen saturation in Arterial blood by Pulse oximetry 2024-09-21 15:47:00 98 /min Adele Seybo ld - External Systolic blood pressure 2024-08-02 14:45:00 116 mm[Hg] Adele Seybo ld - External Diastolic blood pressure 2024-08-02 14:45:00 60 mm[Hg] Adele Seybo ld - External Heart rate 2024-08-02 14:45:00 76 /min Kelse y Seybold - External Body temperature 2024-08-02 14:45:00 36.89 [place] Adele Seybold - External Respiratory rate 2024-08-02 14:45:00 16 /min Adele Seybold - External Body height 2024-08-02 14:45:00 149.9 cm Sophie ey Seybold - External Body weight 2024-08-02 14:45:00 62.199 kg Sophie ey Seybold - External BMI 2024-08-02 14:45:00 27.70 kg/m2 Sophie ey Seybold - External Oxygen saturation in Arterial blood by Pulse oximetry 2024-08-02 14:45:00 98 /min Adele Seybo ld - External Systolic blood pressure 2024-06-15 21:22:00 124 mm[Hg] Adele Seybo ld - External Diastolic blood pressure 2024-06-15 21:22:00 72 mm[Hg] Adele Seybo ld - External Heart rate 2024-06-15 21:22:00 83 /min Kelse y Seybold - External Body temperature 2024-06-15 21:22:00 36.39 [place] Adele Seybold - External Respiratory rate 2024-06-15 21:22:00 16 /min Adele Seybold - External Body height 2024-06-15 21:22:00 149.9 cm Sophie ey Seybold - External Body weight 2024-06-15 21:22:00 66.679 kg Sophie ey Seybold - External BMI 2024-06-15 21:22:00 29.69 kg/m2 Sophie ey Seybold - External Systolic blood pressure 2024-05-13 14:00:00 133 mm[Hg] Adele Seybo ld - External Diastolic blood pressure 2024-05-13 14:00:00 67 mm[Hg] Adele Seybo ld - External Heart rate 2024-05-13 14:00:00 [...] External Heart rate 2024-02-10 13:22:00 81 /min Tyese y Seybold - External Body temperature 2024-02-10 13:22:00 36.56 [place] Adele Seybold - External Respiratory rate 2024-02-10 13:22:00 16 /min Adele Seybold - External Body height 2024-02-10 13:22:00 149.9 cm Sophie ey Seybold - External Body weight 2024-02-10 13:22:00 64.864 kg Sophie ey Seybold - External BMI 2024-02-10 13:22:00 28.88 kg/m2 Sohpie ey Seybold - External Oxygen saturation in [...] blood pressure 2023-09-25 16:56:00 65 mm[Hg] Adele Backybo ld - External Heart rate 2023-09-25 16:56:00 [...] Pulse oximetry 2023-09-25 16:56:00 95 /min Adele Backybo ld - External Respiratory rate 2023-08-12 17:45:00 [...] Pulse oximetry 2023-05-29 18:15:00 100 /min Adele Trevizoo ld - External Systolic blood pressure 2023-05-01 15:54:00 99 mm[Hg] Adele Backybo ld - External Diastolic blood pressure 2023-05-01 15:54:00 54 mm[Hg] Adele Backybo ld - External Heart rate 2023-05-01 15:54:00 71 /min Casper y Seybold - External Body temperature 2023-05-01 [...] / Time Performed Performing [facility] n [facility] 15:13:24 Allan Morfin - External Encounters Start Date/Time End Date/Time Encounter Type Admission Type Attending [facility] Care Department Encounter ID Source 2024-09-21 09:30:00 2024-09-21 09:30:00 Outpatient ALLAN MORFIN [id number] Adele Bahena 2024-09-15 00:00:00 2024-09-15 00:00:00 Outpatient KIM KIRK [id number] Adele Bahena 2024-08-02 09:00:00 2024-08-02 09:00:00 Outpatient ALLAN MORFIN [id number] Adele Bahena 2024-06-24 00:00:00 2024-06-24 00:00:00 Outpatient PREZASALLAN ADELE [id number] [facility] 2024-06-22 15:45:00 2024-06-22 15:45:00 Outpatient CATINA CHOUDHURY ADELE [id number] Adele [facility] 2024-06-15 16:30:00 2024-06-15 16:30:00 Outpatient HUNDLKOSTA ADELE ADELE [id number] Adele [facility] 2024-05-28 00:00:00 2024-05-28 00:00:00 Outpatient PREZAS, ALLAN ADELE OSORIO [id number] Adele [facility] 2024-05-18 00:00:00 2024-05-18 00:00:00 Outpatient PREZASALLAN ADELE OSORIO [id number] [facility] 2024-05-14 00:00:00 2024-05-14 00:00:00 Outpatient PREZASALLAN ADELE [id number] [facility] 2024-05-13 09:15:00 2024-05-13 09:15:00 Outpatient PREZASALLAN ADELE OSORIO [id number] [facility] 2024-05-11 05:12:00 2024-05-11 05:12:00 Outpatient Julianna Aguilar [facility]O [id number] [facility] 2024-05-07 00:00:00 2024-05-07 00:00:00 Outpatient PREZASALLAN [facility]DELE [facility]OR[facility] [id number] [facility] 2024-03-30 06:07:00 2024-03-30 06:07:00 Outpatient Julianna Aguilar [facility] ENDO [id number] [facility] 2024-02-16 00:00:00 2024-02-16 00:00:00 Outpatient PREZASALLAN ADELE OSORIO [id number] [facility] 2024-02-12 00:00:00 2024-02-12 00:00:00 Outpatient PREZASALLAN ADELE OSORIO [id number] [facility] 2024-02-10 08:15:00 2024-02-10 08:15:00 Outpatient PREZAS, ALLAN ADELE OSORIO [id number] Adele Backy[facility] 2024-01-01 11:20:00 2024-01-01 11:20:00 Outpatient VU, JULES ADELE OSORIO [id number] Adele Backy[facility]iel 2023-12-25 09:00:00 2023-12-25 09:00:00 Outpatient PREZAS, ALLAN ADELE OSORIO [id number] [facility] 2023-12-02 11:20:00 2023-12-02 11:20:00 Outpatient VU, JULES ADELE OSORIO [id number] [facility] 2023-11-25 11:30:00 2023-11-25 11:30:00 Outpatient ADELE OSORIO [id number] [facility] 2023-11-25 10:40:00 2023-11-25 10:40:00 Outpatient VU, JULES ADELE OSORIO [id number] [facility] 2023-11-18 00:00:00 2023-11-18 00:00:00 Outpatient PREZAS, ALLAN ADELE OSORIO [id number] [facility] 2023-11-11 09:00:00 2023-11-11 09:00:00 Outpatient PREZAS, ALLANJAZIEL OSORIO [id number] [facility] 2023-11-06 00:00:00 2023-11-06 00:00:00 Outpatient PREZAS, ALLAN OSORIO [id number] [facility] 2023-10-23 00:00:00 2023-10-23 00:00:00 Outpatient PREZAS, ALLAN OSORIO [id number] Adele Seybold 2023-10-21 00:00:00 2023-10-21 00:00:00 Outpatient PREZAS, ALLAN OSORIO [id number] Adele Seybold 2023-09-25 10:30:00 2023-09-25 10:30:00 Outpatient PREZAS, ALLAN OSORIO [id number] [facility] 2023-09-04 09:00:00 2023-09-04 09:00:00 Outpatient ALLAN MORFIN [id number] Adele Bahena 2023-08-28 14:00:00 2023-08-28 14:00:00 Outpatient ADELE OSORIO [id number] Adele Bahena 2023-08-28 13:30:00 2023-08-28 13:30:00 Outpatient ADELE OSORIO [id number] Adele Bahena 2023-08-28 00:00:00 2023-08-28 00:00:00 Outpatient ALLAN MORFIN [id number] Adele Bahena 2023-08-19 00:00:00 2023-08-19 00:00:00 Outpatient RADHAZAALLAN Hollingsworth [id number] Adele Bahena 2023-08-12 11:30:00 2023-08-12 11:30:00 Outpatient ALLAN MORFIN [id number] [facility] 2023-06-03 10:00:00 2023-06-03 10:00:00 Outpatient ALLAN MORFIN [id number] Adele Bahena 2023-05-29 13:30:00 2023-05-29 13:30:00 Outpatient ADRIENNE SOTO [id number] [facility] 2023-05-01 10:45:00 2023-05-01 10:45:00 Outpatient ALLAN MORFIN ADELE [id number] [facility] 2018-03-12 09:30:00 2018-03-12 10:31:36 Outpatient EVARISTO ORTIZ [facility] [id number] [facility] Results Test Description Test Time Test Comments Results Result Co mments Source BASIC METABOLIC [id number] 14:44:00* Test Item Value Reference Range Interpretation [...] CA) 9.7 MG/DL 8.5-10.1 N CBC W/O [id number] 14:21:00* Test Item Value Reference Range Interpretation [...] ode = MPV) 9.90 fL 7.0-10.5 N [id number] 17:28:00* Test Item Value Reference Range Interpretation Comme nts SURGICAL (test code = SR) RUN DATE: 03/31/24 [facility] PAGE 1 RUN TIME: 8 Specimen Inquiry RUN USER: INTERFACE PATIENT: TINA SUAREZ LOC: JACKLYN U #: [id number] AGE/SX: 78/F ROOM: RE03/30/24REG DR: Julianna Schaffer MD : 45 BED: DIS: STATUS: [facility] [place]: SPEC #: [id number]:[id number] RECD: 03/30/24 STATUS: MANNY WATKINS #: [id number] KINSEY: 03/30/[address] [facility] DR: Julianna Schaffer MD ENTERED: 03/30/24 SP TYPE: SURGICAL OTHR DR: ORDERED: 65443/4, ANATOMIC SPEC, SPECIMEN TRACK PROCEDURES: 27805 (03/30/24) SPECIMEN TRACK (03/30/24) TISSUES: A. DUODENUM [...] CONTINUED ON NEXT PAGE RUN DATE: 03/31/24 [facility] PAGE 2 RUN TIME: 1728 Specimen Inquiry RUN USER: INTERFACE SPEC #: [id number]:[id number] PATIENT: TINA SUAREZ #[id number] (Continued) GROSS DESCRIPTION (Continued) D. Distal esophagus. It consists of a single tissue fragment measuring 5 mm, entirelysubmitted as D1. Technical tissue processing and slide preparation performed at [facility],[id number] , [place] [address] MICROSCOPIC DESCRIPTION Microscopic examination is performed and the findings are incorporated into the finaldiagnosis. Please see diagnosis for findings. Signed SIGNATURE ON FILE Crista Baldwin 03/31/24 1728 END OF REPORT BASIC METABOLIC [id number] 08:21:00* Test Item Value Reference Range Interpretation [...] CA) 9.2 MG/DL 8.5-10.1 N BASIC METABOLIC [id number] 09:37:00* Test Item Value Reference Range Interpretation [...] CA) 9.8 MG/DL 8.5-10.1 N CBC W/O [id number] 09:08:00* Test Item Value Reference Range Interpretation [...] ode = MPV) 10.20 fL 7.0-10.5 N [id number] 15:14:01* Test Item Value Reference Range Interpretation Comme nts [employer] left side (test code = 35209-9D) See_Comment [Automate d message] The system which generated this result transmitted reference range: 1.40 - 0.90 NA. The reference range was not used to interpret this result as normal/abnormal. [employer] right side (test code = 62994-6R) See_Comment L Exercise Modality: At Restboth feet retested Normal - 1.40 - 1.00Borderline - 0.99 - 0.90Mild - 0.89 - 0.60Moderate - 0.59 - 0.30Severe - 0.29 - 0.00 [Automated message] The system which generated this result transmitted reference range: 1.40 - 0.90 NA. The reference range was not used to interpret this result as normal/abnormal. Lab Interpretation (test code = 96379-5) Abnormal Adele Bahena - External
--- NOTE | 2024-09-29 21:12 | RAD REPORT ---
EXAMINATION: ONE VIEW CHEST XR CLINICAL INDICATION: Female, 79 years old.,CHEST PAIN TECHNIQUE: Frontal chest projection is submitted. Examination is limited by patient positioning and t echnique. COMPARISON: 07/27/2024 FINDINGS: The lungs are grossly clear except for minimal residual right basal opacification although suboptimal inspiratory effort somewhat limits evaluation. No pneumothorax or sizable effusion. The heart is normal in size. Mediastinal contours are unremarkable. IMPRESSION: No acute intrathoracic abnormalities. Improved aeration since prior exam with minimal residual right basal opacification, could reflect atelectasis.
[2024-09-29 21:46] LABS: Absolute Basophils 0.1 K/uL (0-0.5); Absolute Eosinophils 0.1 K/uL (0-0.5); Absolute Lymphocytes (CBC) 2.5 K/uL (0.7-4.9); Absolute Monocytes 0.8 K/uL (0.1-1.3); Absolute Neutrophil 3.7 K/uL (1.8-8.0); Basophils % 1.2 % (0-1.3); Eosinophils % 1.6 % (0-4.4); Hematocrit 41.8 % (36.0-45.0); Hemoglobin 13.9 g/dL (12.0-15.0); Lymphocytes % 34.7 % (15.3-44.8); MCH 29.8 pg (27.0-35.0); MCHC 33.2 g/dL (32.0-36.0); MCV 89.9 fL (80-100); MPV 9.8 fL (7.6-11.3); Monocytes % 11.6 % (3.3-12.3); Neutrophils % 50.9 % (41.7-73.7); Nucleated Red Blood Cells % 0.1 % (0-0); Platelets 198 thou/uL (152-406); RBC Red Blood Cell Count 4.65 M/uL (3.86-4.86); Red Cell Distribution Width 19.1 % (12.1-15.2)
[2024-09-29 21:47] LABS: PT Prothrombin Time 11.2 SECONDS (9.4-12.5); Protime INR 1.07
[2024-09-29] MEDS ORDERED: ASPIRIN 81 MG CHEWABLE TABLET ONE (21:58)
[2024-09-29] MEDS ORDERED: FAMOTIDINE 20 MG/2 ML VIAL IV ONE (21:58)
--- NOTE | 2024-09-29 22:00 | EDPHYS ---
Physician Documentation [facility] Name: Kevin Chou Age: 79 yrs Sex: Female : 1945 Arrival Date: 09/29/2024 Time: 19:19 Bed 11 Private MD: ED Physician Brett Lennon HPI: 09/29 20:33 This 79 yrs old Black Female presents to ER via Wheelchair with complaints of Chest addie Pain. 20:33 The patient or guardian reports chest pain that is located primarily in the substernal addie area. Onset: this morning. The pain does not radiate. Associated signs and symptoms: The patient has no apparent associated signs or symptoms. The chest pain is described as squeezing. Duration: The patient or guardian reports multiple episodes, that wax and wane, with no pattern. Modifying factors: The symptoms are alleviated by nothing. the symptoms are aggravated by nothing. Severity of pain: At its worst the pain was mild in the emergency department the pain is unchanged. The patient has not experienced similar symptoms in the past. Historical: - Allergies: 19:56 Aspirin; cm10 19:56 Oxycodone HCl; cm10 19:56 Percodan; cm10 - PMHx: 19:56 diabetes mellitus; DIALYSIS MWF; Hypertension; kidney disease; cm10 - PSHx: 19:56 Left arm fistula; cm10 - Immunization history:: Adult Immunizations up to date. - Infectious Disease History:: Denies. - Social history:: Smoking status: Patient denies any tobacco usage or history of. ROS: 20:33 Constitutional: Negative for fever, chills, and weight loss, Eyes: Negative for injury, addie pain, redness, and discharge, ENT: Negative for injury, pain, and discharge, Neck: Negative for injury, pain, and swelling, Respiratory: Negative for shortness of breath, cough, wheezing, and pleuritic chest pain, Abdomen/GI: Negative for abdominal pain, nausea, vomiting, diarrhea, and constipation, Back: Negative for injury and pain, : Negative for injury, bleeding, discharge, and swelling, MS/Extremity: Negative for injury and deformity, Skin: Negative for injury, rash, and discoloration, Neuro: Negative for headache, weakness, numbness, tingling, and seizure, Psych: Negative for depression, anxiety, suicide ideation, homicidal ideation, and hallucinations, Allergy/Immunology: Negative for hives, rash, and allergies, Endocrine: Negative for neck swelling, polydipsia, polyuria, polyphagia, and marked weight changes, Hematologic/Lymphatic: Negative for swollen nodes, abnormal bleeding, and unusual bruising, 20:33 Cardiovascular: Positive for chest pain, of the chest, Exam: 20:33 Constitutional: This is a well developed, well nourished patient who is awake, alert, addie and in no acute distress. Head/Face: Normocephalic, atraumatic. Eyes: Pupils equal round and reactive to light, extra-ocular motions intact. Lids and lashes normal. Conjunctiva and sclera are non-icteric and not injected. Cornea within normal limits. Periorbital areas with no swelling, redness, or edema. ENT: Nares patent. No nasal discharge, no septal abnormalities noted. Tympanic membranes are normal and external auditory canals are clear. Oropharynx with no redness, swelling, or masses, exudates, or evidence of obstruction, uvula midline. Mucous membranes moist. Neck: Trachea midline, no thyromegaly or masses palpated, and no cervical lymphadenopathy. Supple, full range of motion without nuchal rigidity, or vertebral point tenderness. No Meningismus. Chest/axilla: Normal chest wall appearance and motion. Nontender with no deformity. No lesions are appreciated. Cardiovascular: Regular rate and rhythm with a normal S1 and S2. No gallops, murmurs, or rubs. Normal PMI, no JVD. No pulse deficits. Respiratory: Lungs have equal breath sounds bilaterally, clear to auscultation and percussion. No rales, rhonchi or wheezes noted. No increased work of breathing, no retractions or nasal flaring. Abdomen/GI: Soft, non-tender, with normal bowel sounds. No distension or tympany. No guarding or rebound. No evidence of tenderness throughout. Back: No spinal tenderness. No costovertebral tenderness. Full range of motion. Skin: Warm, dry with normal turgor. Normal color with no rashes, no lesions, and no evidence of cellulitis. MS/ Extremity: Pulses equal, no cyanosis. Neurovascular intact. Full, normal range of motion., bilateral aka Neuro: Awake and alert, GCS 15, oriented to person, place, time, and situation. Cranial nerves II-XII grossly intact. Motor strength 5/5 in all extremities. Sensory grossly intact. Cerebellar exam normal. Normal gait. Psych: Awake, alert, with orientation to person, place and time. Behavior, mood, and affect are within normal limits. 20:33 ECG was reviewed by the Attending Physician. 20:33 Musculoskeletal/extremity: ROM: no acute changes, Circulation is intact in all extremities. Sensation intact. Compartment Syndrome exam of affected extremity: is normal. DVT Exam: No signs of deep vein thrombosis. 20:33 Neuro: Orientation: is normal, appropriate for stated age, no acute changes, Mentation: is normal, appropriate for stated age, no acute changes, Memory: is normal, appropriate for stated age, no acute changes, Cranial nerves: grossly normal, is grossly normal based on the patient's age, no acute changes, Cerebellar function: is grossly normal, is grossly normal based on the patient's age, no acute changes, Gait: not applicable seizure activity, is not displayed by the patient, 20:38 ECG was reviewed by the Attending Physician. [facility] Vital Signs: 19:55 BP 173 / 80; Pulse 80; Resp 15; Temp 97.7(O); Pulse Ox 98% on R/A; Weight 61.23 kg; cm10 Height 4 ft. 11 in. ; Pain 6/10; 22:00 BP 163 / 54; Pulse 66; Resp 20; Pulse Ox 98% ; Pain 2/10; kb3 09/30 00:00 BP 145 / 54; Pulse 64; Resp 19; Pulse Ox 100% on R/A; Pain 0/10; kb3 09/29 19:55 Body Mass Index 27.27 (61.23 kg, 149.86 cm) cm10 02 19:55 Pain Scale: Adult cm10 22:00 Pain Scale: Adult kb3 09/30 00:00 Pain Scale: Adult kb3 MDM: 09/29 19:37 Medical Screening Exam initiated addie 20:35 Differential diagnosis: abnormal EKG, acute myocardial infarction, acute pericarditis, addie anxiety, coronary artery disease chest wall pain, congestive heart failure cholecystitis, Cholelithiasis gastritis, hiatal hernia, pancreatitis, pericarditis, pleurisy, pneumonia, pulmonary embolus, stable angina, thoracic aortic disection. HEART Score: History: Moderately Suspicious (1), ECG: Non specific repolarization disturbance / LBTB / PM (1), Age: > or = 65 years (2), Risk Factors: > or = 3 Risk factors for atherosclerotic disease (2), [Hypercholesterolemia] [Hypertension] [DM] [+ Family HX] Troponin: < or = 1 x Normal Limit (0). The patient was given aspirin in the Emergency Department. DOMINGA Risk Score: not applicable. Data reviewed: vital signs, nurses notes, lab test result(s), EKG, radiologic studies, plain films. Consideration of Admission/Observation Patient was admitted/placed on observation. Escalation of care including admission/observation considered. I considered the following discharge prescriptions or medication management in the emergency department Medications were administered in the Emergency Department. See MAR. Independent interpretation of the following test(s) in the Emergency Department EKG: See my EKG interpretation above. Test considered but Not performed: Ultrasound 2 D ECHO. Care significantly affected by the following chronic conditions: Diabetes, Hypertension, Chronic Kidney Disease, DIALYSIS M,W,F. Counseling: I had a detailed discussion with the patient and/or guardian regarding the historical points, exam findings, and any diagnostic results supporting the discharge/admit diagnosis, the presence of at least one elevated blood pressure reading (>120/80) during this emergency department visit, lab results, the need for further work-up and treatment in the hospital. 09/29 19:37 Order name: Basic Metabolic Panel; Complete Time: 22:06 addie 09/29 19:37 Order name: CBC with Diff; Complete Time: 21:58 09/29 19:37 Order name: LFT's; Complete Time: 22:06 09/29 19:37 Order name: Magnesium; Complete Time: 22:06 addie 09/29 19:37 Order name: NT PRO-BNP; Complete Time: 22:06 addie 09/29 19:37 Order name: PT-INR addie 09/29 19:37 Order name: Troponin HS; Complete Time: 22:06 addie 09/29 19:37 Order name: Lipase; Complete Time: 22:06 addie 09/29 19:37 Order name: Urinalysis w/ reflexes addie 09/29 22:53 Order name: Ptt, Activated kb3 09/29 22:57 Order name: PTT, Activated Partial Thromb EDMS 09/29 23:37 Order name: Troponin High Sensitivity EDMS 09/29 23:37 Order name: Troponin High Sensitivity EDLA 09/29 23:37 Order name: Troponin High Sensitivity EDMS 09/29 23:37 Order name: Troponin High Sensitivity MS 09/29 23:39 Order name: Lipid Profile EDLA 09/29 23:39 Order name: Lipid Profile EDLA 09/29 19:37 Order name: XRAY Chest (1 view); Complete Time: 21:58 [facility] 09/29 23:39 Order name: Echo with Doppler [facility] 09/29 19:37 Order name: Cardiac monitoring; Complete Time: 23:07 [facility] 09/29 19:37 Order name: EKG - Nurse/Tech; Complete Time: 19:57 [facility] 09/29 19:37 Order name: IV Saline Lock; Complete Time: 21:35 [facility] 09/29 19:37 Order name: Labs collected and sent; Complete Time: 21:35 [facility] 09/29 19:37 Order name: O2 Per Protocol; Complete Time: 23:07 [facility] 09/29 19:37 Order name: O2 Sat Monitoring; Complete Time: 23:07 [facility] EC:38 Rate is 81 beats/min. Rhythm is regular. QRS [place] is Normal. NM interval is prolonged addie at 232 msec. QRS interval is normal. QT interval is normal. No Q waves. T waves are Normal. No ST changes noted. Clinical impression: NSR w/ Non-specific ST/T Changes, 1st degree heart block, and No evidence of ischemia. Interpreted by me. Reviewed by me. Administered Medications: 20:38 CANCELLED (Duplicate Order): aspirinchewable tablet 324 mg PO once; 81 mg tablets x 4 addie 22:05 Drug: Famotidine IVP 20 mg IVP once; dilute with 10 mL 0.9% NaCl; give over 2 minutes kb3 Route: IVP; Site: left forearm; 09/30 00:47 Follow up: Response: No adverse reaction [facility] 09/29 22:10 Drug: Aspirin PO Chewable Tablet 81 mg PO once Route: PO; 3 09/30 00:49 Follow up: Response: No adverse reaction [facility] 09/29 23:05 Drug: Heparin ([place] Drip) 12 units/kg/[place] - ([place] [address] units, D5W IV 500 ml) IV at kb3 calculated rate Per protocol; Max initial rate 1000 units/hr {Co-Signature: al5 (Mignon Platt RN).} Route: IV; Rate: 732 units/hr; Site: right forearm; 09/30 00:46 Follow up: IV Status: Infusion continued upon admission 3 09/29 23:05 Drug: Clopidogrel PO 150 mg PO once Route: PO; 3 09/30 00:46 Follow up: Response: No adverse reaction 3 09/29 23:05 Drug: Acetaminophen PO 650 mg PO once Route: PO; 3 09/30 00:46 Follow up: Response: No adverse reaction; Pain is decreased 3 09/29 23:05 Drug: Metoprolol PO 50 mg PO once Route: PO; kb3 09/30 00:45 Follow up: Response: No adverse reaction; Blood pressure is lowered 3 09/29 23:06 Drug: GI Cocktail without - (Maalox PO 30 ml, Lidocaine Mucous Membrane 2 % 15 kb3 ml) PO once Route: PO; 09/30 00:47 Follow up: Response: No adverse reaction 3 09/29 23:06 Drug: Heparin ([place]-Bolus No thrombolytic) - HEParin IVP 60 units/kg IVP once; Max 5000 kb3 units {Co-Signature: al5 (Mignon Platt RN).} Route: IVP; Site: right forearm; 09/30 00:47 Follow up: Response: No adverse reaction kb3 Disposition Summary: 09/29/24 22:00 Hospitalization Ordered Notes: Provider: Tatiana Arevalo cha Condition: Fair addie Problem: new addie Symptoms: have improved addie Bed/Room Type: Standard addie Hospitalization Status: Inpatient Admission(09/29/24 22:10) addie Location: Intensive Care Unit(09/29/24 22:10) addie Room Assignment: 6-(09/29/24 23:32) cm10 Diagnosis - Chest pain, unspecified addie - Dependence on renal dialysis - M,W,F addie - Type 2 diabetes mellitus with hyperglycemia addie - Non ST elevation [place] addie Forms: - Medication Reconciliation Form addie - SBAR form addie - Leadership Thank You Letter addie Signatures: Dispatcher [employer] Brett Griffin MD MD cha Bradberry, Kelly, RN RN kb3 Lina Hanson RN RN cm10 Mignon Platt RN al5 Corrections: (The following items were deleted from the chart) 02/05 19:37 19:37 BASIC METABOLIC PANEL+C.LAB.BRZ ordered. EDMS EDMS 19:37 19:37 CBC+H.LAB.BRZ ordered. EDMS EDMS 19:37 19:37 HEPATIC FUNCTION+C.LAB.BRZ ordered. EDMS EDMS 19:37 19:37 MAGNESIUM+C.LAB.BRZ ordered. EDMS EDMS 19:37 19:37 PROBNP+C.LAB.BRZ ordered. EDMS EDMS 19:37 19:37 PROTIME (+INR)+COAG.LAB.BRZ ordered. EDMS EDMS 19:37 19:37 Troponin High Sensitivity+C.LAB.BRZ ordered. EDMS EDMS 19:37 19:37 LIPASE+C.LAB.BRZ ordered. EDMS EDMS 19:37 19:37 Urinalysis+U.LAB.BRZ ordered. EDMS EDMS 19:38 19:38 Chest Single View+RAD.RAD.BRZ ordered. EDMS EDMS 20:38 19:37 Aspirin PO Chewable Tablet 324 mg PO once; 81 mg tablets x 4 ordered. addie addie 20:39 20:33 Rate is 81 beats/min. Rhythm is regular. QRS [place] is Normal. NM interval is addie normal. QRS interval is normal. QT interval is normal. No Q waves. T waves are Normal. No ST changes noted. Clinical impression: NSR w/ Non-specific ST/T Changes and No evidence of ischemia. Interpreted by me. Reviewed by me. addie 22:10 22:00 Observation addie addie 22:10 22:00 Telemetry/MedSurg (observation) addie addie 22:10 22:00 addie addie 23:32 22:10 addie cm10
--- NOTE | 2024-09-29 22:00 | ER ---
Nurse's Notes [facility] [place], [place] Name: Kevin Chou Age: 79 yrs Sex: Female : 1945 Arrival Date: 09/29/2024 Time: 19:19 Bed 11 Private MD: Diagnosis: Chest pain, unspecified;Dependence on renal dialysis-M,W,F;Type 2 diabetes mellitus with hyperglycemia;Non ST elevation [place] Presentation: 09/29 19:55 Chief complaint: Patient states: Left sided chest pain onset today while she was at [facility] dialysis. Coronavirus screen: Client denies travel out of the [place] in the last 14 days. Ebola Screen: No symptoms or risks identified at this time. Initial Sepsis Screen: Does the patient meet any 2 criteria? No. Patient's initial sepsis screen is negative. Does the patient have a suspected source of infection? No. Patient's initial sepsis screen is negative. Risk Assessment: Do you want to hurt yourself or someone else? Patient reports no desire to harm self or others. Onset of symptoms was September 29, 2024. 19:55 Method Of Arrival: Wheelchair 10 19:55 Acuity: GRETA 2 cm10 Triage Assessment: 19:57 General: Appears in no apparent distress. comfortable, Behavior is calm, cooperative. cm10 Neuro: No deficits noted. Level of Consciousness is awake, alert, obeys commands, Oriented to person, place, time, situation, Appropriate for age. Respiratory: No deficits noted. Airway is patent Respiratory effort is even, unlabored, Respiratory pattern is regular, symmetrical. Historical: - Allergies: 19:56 Aspirin; cm10 19:56 Oxycodone HCl; cm10 19:56 Percodan; cm10 - PMHx: 19:56 diabetes mellitus; DIALYSIS MWF; Hypertension; kidney disease; cm10 - PSHx: 19:56 Left arm fistula; cm10 - Immunization history:: Adult Immunizations up to date. - Infectious Disease History:: Denies. - Social history:: Smoking status: Patient denies any tobacco usage or history of. Screenin:00 [facility] ED Fall Risk Assessment (Adult) History of falling in the last 3 months, kb3 including since admission No falls in past 3 months (0 pts) Confusion or Disorientation No (0 pts) Intoxicated or Sedated No (0 pts) Impaired Gait Yes (1 pt) Mobility Assist Device Used Yes (1 pt) Altered Elimination Yes (1 pt) Score/Fall Risk Level 3 or more points = High Risk Oriented to surroundings, Maintained a safe environment, Educated pt \T\ family on fall prevention, incl call for assistance when getting out of bed. Abuse screen: Denies threats or abuse. Denies injuries from another. Nutritional screening: No deficits noted. Tuberculosis screening: No symptoms or risk factors identified. Assessment: 22:00 Also complains of no other symptoms. kb3 22:00 Reassessment: Patient appears in no apparent distress at this time. General: Appears in kb3 no apparent distress. comfortable, Behavior is calm, cooperative. Pain: Complains of pain in chest Pain does not radiate. Pain began gradually, 2-3 days ago. Is intermittent. Cardiovascular: Heart tones S1 S2 present Capillary refill < 3 seconds Pulses are 2+ in right radial artery, bilateral radial, brachial, femoral, popliteal, posterior tibial and and dorsalis pedis arteries. Rhythm is sinus rhythm with 1st degree heart block. Respiratory: Denies cough, shortness of breath. GI: Patient currently denies constipation, diarrhea, nausea. 22:30 General: Dr Lennon spoke with pt and her son regarding reported aspirin allergy. Pt kb3 reported that aspirin sometimes made her see things. Dr Lennon informed pt that it was important that she take an aspirin because of her symptoms. Pt and her son agreed. Aspirin administered. 09/30 00:00 Reassessment: Patient appears in no apparent distress at this time. No changes from kb3 previously documented assessment. Patient and/or family updated on plan of care and expected duration. Pain level reassessed. Patient states feeling better. Patient states symptoms have improved. 00:00 General: Report called to Meghana JOYNER in ICU. . kb3 Vital Signs: 09/29 19:55 BP 173 / 80; Pulse 80; Resp 15; Temp 97.7(O); Pulse Ox 98% on R/A; Weight 61.23 kg; cm10 Height 4 ft. 11 in. ; Pain 6/10; 22:00 BP 163 / 54; Pulse 66; Resp 20; Pulse Ox 98% ; Pain 2/10; kb3 09/30 00:00 BP 145 / 54; Pulse 64; Resp 19; Pulse Ox 100% on R/A; Pain 0/10; kb3 09/29 19:55 Body Mass Index 27.27 (61.23 kg, 149.86 cm) cm10 02 19:55 Pain Scale: Adult 10 22:00 Pain Scale: Adult kb3 02 00:00 Pain Scale: Adult kb3 ED Course: 09/29 19:23 Patient arrived in ED. kb 19:36 Brett Lennon MD is Attending Physician. [facility] 19:56 Triage completed. [facility] 19:57 Arm band placed on right wrist. Patient placed in waiting room. EKG completed in 10 triage. Results shown to MD. 19:57 EKG done, by ED staff, reviewed by Brett Lennon MD. [facility] 20:21 XRAY Chest (1 view) In Process Unspecified. EDMS 21:35 Basic Metabolic Panel Sent. vk 21:35 CBC with Diff Sent. vk 21:35 LFT's Sent. vk 21:35 Magnesium Sent. vk 21:35 NT PRO-BNP Sent. vk 21:35 PT-INR Sent. vk 21:36 Troponin HS Sent. vk 21:36 Initial lab(s) drawn, by al, sent to lab. Inserted saline lock: 22 gauge in right vk forearm, using aseptic technique. Blood collected. Flushed with 10 mL NS. 21:58 Tatiana Arevalo MD is Hospitalizing Provider. [facility] 22:00 Patient has correct armband on for positive identification. Fall risk band placed. Bed kb3 in low position. Call light in reach. Provided Education on: POC. Client placed on continuous cardiac and pulse oximetry monitoring. NIBP monitoring applied. monitor technician on. Pulse ox on. NIBP on. Warm blanket given. Pillow given. 22:00 No provider procedures requiring assistance completed. Patient maintains SpO2 kb3 saturation greater than 95% on room air. Administered Medications: 20:38 CANCELLED (Duplicate Order): aspirinchewable tablet 324 mg PO once; 81 mg tablets x 4 [facility] 22:05 Drug: Famotidine IVP 20 mg IVP once; dilute with 10 mL 0.9% NaCl; give over 2 minutes kb3 Route: IVP; Site: left forearm; 09/30 00:47 Follow up: Response: No adverse reaction [facility] 09/29 22:10 Drug: Aspirin PO Chewable Tablet 81 mg PO once Route: PO; kb3 09/30 00:49 Follow up: Response: No adverse reaction 3 09/29 23:05 Drug: Heparin ([place] Drip) 12 units/kg/[place] - ([place] [address] units, D5W IV 500 ml) IV at kb3 calculated rate Per protocol; Max initial rate 1000 units/hr {Co-Signature: al5 (Mignon Platt RN).} Route: IV; Rate: 732 units/hr; Site: right forearm; 09/30 00:46 Follow up: IV Status: Infusion continued upon admission 3 09/29 23:05 Drug: Clopidogrel PO 150 mg PO once Route: PO; 3 09/30 00:46 Follow up: Response: No adverse reaction 3 09/29 23:05 Drug: Acetaminophen PO 650 mg PO once Route: PO; 3 09/30 00:46 Follow up: Response: No adverse reaction; Pain is decreased 3 09/29 23:05 Drug: Metoprolol PO 50 mg PO once Route: PO; 3 09/30 00:45 Follow up: Response: No adverse reaction; Blood pressure is lowered [facility] 09/29 23:06 Drug: GI Cocktail without - (Maalox PO 30 ml, Lidocaine Mucous Membrane 2 % 15 kb3 ml) PO once Route: PO; 09/30 00:47 Follow up: Response: No adverse reaction 3 09/29 23:06 Drug: Heparin ([place]-Bolus No thrombolytic) - HEParin IVP 60 units/kg IVP once; Max 5000 kb3 units {Co-Signature: [email or web address] (Mignon Platt RN).} Route: IVP; Site: right forearm; 09/30 00:47 Follow up: Response: No adverse reaction 3 Medication: 09/29 22:00 VIS not applicable for this client. kb3 Outcome: 22:00 Decision to Hospitalize by Provider. [facility] 02 00:48 Admitted to ICU accompanied by nurse, via stretcher, kb3 Condition: stable Instructed on the need for admit, 00:48 Admitted to ICU Report called to Meghana JOYNER kb3 00:53 Patient left the ED. kb3 Signatures: Dispatcher [employer] EDAnnelise Walton, EDWIN RODRIGUEZ-Brett Bains MD MD cha Bradberry, Kelly, RN RN kb3 Lina Hanson, RN RN cm10 Chetna Ch Amanda RN al5
[2024-09-29 22:01] LABS: ALT/SGPT 27 U/L (13-56); AST/SGOT 24 U/L (15-37); Albumin 3.6 g/dL (3.4-5.0); Albumin/Globulin Ratio 0.8 (1.1-1.8); Alkaline Phosphatase 86 U/L (45-117); Anion Gap 11.7 mEq/L (5.0-15.0); BUN Blood Urea Nitrogen 44 mg/dL (7-18); Bicarbonate 26 mEq/L (21-32); Bilirubin Direct < 0.2 mg/dL (0-0.2); Bilirubin Indirect, Calculated 0.2 mg/dL (0.2-0.8); Bilirubin Total 0.4 mg/dL (0.2-1.0); Globulin 4.6 g/dL (2.3-3.5); Glomerular Filtration Rate 6 ml/min (=/>90); Glucose Level 131 mg/dL (74-106); Lipase 303 U/L (13-75); Magnesium 1.9 mg/dL (1.6-2.4); NT PRO-BNP 12741 pg/mL (<450); Potassium 4.7 mEq/L (3.5-5.1); Protein, Total 8.2 g/dL (6.4-8.2); Sodium Level 136 mEq/L (136-145)
[2024-09-29 22:03] LABS: Troponin High Sensitivity 83.6 pg/mL (<58.9)
[2024-09-29] MEDS ORDERED: METOPROLOL TAR 50 MG TAB ONE (22:40)
[2024-09-29] MEDS ORDERED: MAGNES/ALUMIN/SIMET 30ML UCUP ONE (22:40)
[2024-09-29] MEDS ORDERED: ACETAMINOPHEN 325 MG TABLET ONE (22:40)
[2024-09-29] MEDS ORDERED: HEPARIN 5000 UNIT/ML 1 ML VIAL ONE (22:40)
[2024-09-29] MEDS ORDERED: CLOPIDOGREL 75 MG TABLET ONE (22:40)
[2024-09-29] MEDS ORDERED: LIDOCAINE VISCOUS 2% 10ML ORAL SOLN ONE (22:41)
[2024-09-29] MEDS ORDERED: HEPARIN/D5W 25,000 UNIT/500 ML BAG IV ONE (22:41)
[2024-09-29 23:02] LABS: PTT, Activated Partial Thromb 34.8 SECONDS (24.3-36.9)
[2024-09-30] MEDS ORDERED: HEPARIN/D5W 25,000 UNIT/500 ML BAG IV SCH (01:10)
[2024-09-30 01:31] LABS: Troponin High Sensitivity 64.8 pg/mL (<58.9)
[2024-09-30] MEDS ORDERED: GLUCAGON 1 MG/VIAL IM PRN (07:56)
[2024-09-30] MEDS ORDERED: D10W 125 ML IV PRN (07:56)
--- NOTE | 2024-09-30 07:56 | P.HP ---
Certification for Inpatient Patient admitted to: Inpatient With expected LOS: >2 Midnights Practitioner: I am a practitioner with admitting privileges, knowledge of patient current condition, hospital course, and medical plan of care. Services: Services provided to patient in accordance with Admission requirements found in Title 42 Section 412.3 of the Code of Federal Regulations Patient History Date of Service: 09/30/24 Reason for admission: chest pain History of Present Illness: 79-year-old female presented to the ER with complaints of chest pain. Pain described as substernal. Onset the morning of admission. The patient has diabetes as well as is on dialysis Friday. EKG revealed first- degree AV block. She did have a elevated troponin. Cardiology was contacted in the emergency room. Allergies aspirin [From Percodan] Adverse Reaction (Verified 09/30/24 01:51) hallucination oxycodone [From Percodan] Adverse Reaction (Verified 09/30/24 01:51) hallucination Home Medications: Carvedilol [Coreg] 12.5 mg PO BID #180 tab 07/27/24 Sacubitril/Valsartan [Entresto 24 mg-26 mg Tablet] 1 tab PO BID #90 tab 07/27/24 Albuterol Inhaler [Ventolin Inhaler*] 2 puff IH Q4HP PRN 09/30/24 Famotidine [Pepcid*] 20 mg PO DAILY 09/30/24 - Past Medical/Surgical History Has patient received pneumonia vaccine in the past: Yes Diabetic: No -: ESRD (Dr. Dunbar/ Dr. Zarate)/ LFa fistula MWF -: HTN -: Diastolic CHF -: Arthritis -: HLD -: Gout -: hysterectomy -: lumpectomy -: cataract surgery Psychosocial/ Personal History: Patient lives at home and is . - Family History Mother -: Hypertension, Kidney disease Father -: Hypertension, Kidney disease - Social History Smoking Status: Never smoker Alcohol use: No CD- Drugs: No Caffeine use: Yes Place of Residence: Home Review of Systems 10-point ROS is otherwise unremarkable Cardiovascular: Chest Pain Physical Examination - Vital Signs Temperature: 97.8 F Blood Pressure: 154/57 Pulse: 66 Respirations: 12 Pulse Ox (%): 94 - Physical Exam General: Alert, Oriented x3 HEENT: Atraumatic, Normocephalic Respiratory: Clear to auscultation bilaterally, Normal air movement Cardiovascular: Regular rate/rhythm, Normal S1 S2 Gastrointestinal: Soft and benign, Non-distended Neurological: Normal speech - Studies Laboratory Data (last 24 hrs) 09/29/24 09/29/24 09/29/24 22:53 21:32 21:32 WBC 7.20 Hgb 13.9 Hct 41.8 Plt Count 198 PT 11.2 INR 1.07 APTT Cancelled 34.8 Sodium Potassium BUN Creatinine Glucose Magnesium Total Bilirubin AST ALT Alkaline Phosphatase Lipase 09/29/24 21:32 WBC Hgb Hct Plt Count PT INR APTT Sodium 136 Potassium 4.7 BUN 44 H Creatinine 7.04 H Glucose 131 H Magnesium 1.9 Total Bilirubin 0.4 AST 24 ALT 27 Alkaline Phosphatase 86 Lipase 303 H Assessment and Plan - Problems (Diagnosis) (1) Chest pain Current Visit: Yes Status: Acute (2) Chronic kidney disease Onset Date: 01/17/17 Current Visit: No Status: Acute Qualifiers: (3) End stage renal disease Current Visit: No Status: Acute - Plan 79-year-old female presents with complaints of substernal chest pain Substernal chest pain Elevated troponin Type 2 diabetes End-stage renal disease on dialysis Friday Plan: Admit to [facility] with telemetry Serial troponins Heparin drip Check echocardiogram Cardiology consultation Fingerstick blood sugars, sliding scale insulin - Advance Directives Does patient have a Living Will: No Does patient have a Durable POA for Healthcare: No
[2024-09-30 08:01] LABS: Absolute Basophils 0.1 K/uL (0-0.5); Absolute Eosinophils 0.1 K/uL (0-0.5); Absolute Lymphocytes (CBC) 3.1 K/uL (0.7-4.9); Absolute Monocytes 0.8 K/uL (0.1-1.3); Basophils % 0.9 % (0-1.3); Eosinophils % 2.2 % (0-4.4); Hematocrit 40.4 % (36.0-45.0); Hemoglobin 12.9 g/dL (12.0-15.0); Lymphocytes % 50.7 % (15.3-44.8); MCV 90.8 fL (80-100); MPV 9.4 fL (7.6-11.3); Monocytes % 13.1 % (3.3-12.3); Neutrophils % 33.1 % (41.7-73.7); Nucleated Red Blood Cells % 0.2 % (0-0); Platelets 185 thou/uL (152-406); RBC Red Blood Cell Count 4.45 M/uL (3.86-4.86); Red Cell Distribution Width 18.6 % (12.1-15.2)
[2024-09-30] MEDS: ASPIRIN EC 81 MG TAB PO SCH (08:21)
--- NOTE | 2024-09-30 09:08 | P.CNS ---
Date of Consult: 09/30/24 Chief Complaint: chest pain History of Present Illness: Patient with PMH of ESRD on HD for the last 5 years due to HTN, presented with new onset left sided chest pain while she was in dialysis yesterday, describe it as sharp, under left breast, no radiation, no history of similar pain in the past, report chronic ROYAL, no palpitations, no syncope. Allergies aspirin [From Percodan] Adverse Reaction (Verified 09/30/24 01:51) hallucination oxycodone [From Percodan] Adverse Reaction (Verified 09/30/24 01:51) hallucination Home medications list reviewed: Yes Home Medications: Carvedilol [Coreg] 12.5 mg PO BID #180 tab 07/27/24 Sacubitril/Valsartan [Entresto 24 mg-26 mg Tablet] 1 tab PO BID #90 tab 07/27/24 Albuterol Inhaler [Ventolin Inhaler*] 2 puff IH Q4HP PRN 09/30/24 Famotidine [Pepcid*] 20 mg PO DAILY 09/30/24 - Past Medical/Surgical History Diabetic: No -: ESRD (Dr. Dunbar/ Dr. Zarate)/ LFa fistula MWF -: HTN -: Diastolic CHF -: Arthritis -: HLD -: Gout -: hysterectomy -: lumpectomy -: cataract surgery Psychosocial/ Personal History: Patient lives at home and is . - Family History Mother Medical History: Hypertension, Kidney disease Father Medical History: Hypertension, Kidney disease - Social History Smoking Status: Unknown if ever smoked Alcohol use: No CD- Drugs: No Caffeine use: Yes Place of Residence: Home Review of Systems 10-point ROS is otherwise unremarkable Physical Examination Temp Pulse Resp BP Pulse Ox 97.8 F 66 12 154/57 H 94 09/30/24 07:56 09/30/24 07:56 09/30/24 07:56 09/30/24 07:56 09/30/24 07:56 General: Alert, In no apparent distress HEENT: Atraumatic, PERRLA, Mucous membr. moist/pink, EOMI, Sclerae nonicteric Neck: Supple, 2+ carotid pulse no bruit, No LAD, Without JVD or thyroid abnormality Respiratory: Clear to auscultation bilaterally, Normal air movement Cardiovascular: Regular rate/rhythm, Normal S1 S2 Gastrointestinal: Normal bowel sounds, No tenderness Musculoskeletal: No tenderness Integumentary: No rashes Neurological: Normal gait, Normal speech, Normal tone, Normal affect Lymphatics: No axilla or inguinal lymphadenopathy Laboratory Data (last 24 hrs) 09/29/24 09/29/24 09/29/24 22:53 21:32 21:32 WBC 7.20 Hgb 13.9 Hct 41.8 Plt Count 198 PT 11.2 INR 1.07 APTT Cancelled 34.8 Sodium Potassium BUN Creatinine Glucose Magnesium Total Bilirubin AST ALT Alkaline Phosphatase Lipase 09/29/24 21:32 WBC Hgb Hct Plt Count PT INR APTT Sodium 136 Potassium 4.7 BUN 44 H Creatinine 7.04 H Glucose 131 H Magnesium 1.9 Total Bilirubin 0.4 AST 24 ALT 27 Alkaline Phosphatase 86 Lipase 303 H - Problems (1) NSTEMI (non-ST elevated myocardial infarction) Current Visit: No Status: Acute Plan: Patient cardiac enzymes mildly elevated with risk factors for CAD NPO for coronary angiogram ASA 81 mg daily Lipitor 40 mg daily Echo
[2024-09-30] MEDS ORDERED: HEPARIN 10,000 UNIT/10 ML VIAL IV ONE (11:01)
[2024-09-30] MEDS ORDERED: HEPA 1000U/500MLS 2,000 UNIT/1,000 ML BAG IV ONE (11:01)
[2024-09-30] MEDS ORDERED: TICAGRELOR 90 MG TABLET PO ONE (11:02)
[2024-09-30] MEDS ORDERED: MIDAZOLAM HCL 2 MG/2 ML INJ ONE (11:02)
[2024-09-30] MEDS ORDERED: HEPARIN 5000 UNIT/ML 1 ML VIAL ONE (11:02)
[2024-09-30] MEDS ORDERED: CLOPIDOGREL 75 MG TABLET ONE (11:02)
[2024-09-30] MEDS ORDERED: ATROPINE SULF 1 MG/10 ML SYR IV ONE (11:02)
[2024-09-30] MEDS ORDERED: LIDOCAINE 1% 20 ML MDV ONE (11:02)
[2024-09-30] MEDS ORDERED: ASPIRIN 325 MG TAB ONE (11:02)
[2024-09-30] MEDS ORDERED: FENTANYL CITR 100 MCG/2 ML ONE (11:03)
[2024-09-30] MEDS ORDERED: NA CHLORIDE 0.9% 500 ML ONE (11:09)
--- NOTE | 2024-09-30 11:17 | P.CNS ---
Date of Consult: 09/30/24 Reason for Consult: ESRD Requesting Physician: Deana Scherer Chief Complaint: chest pain History of Present Illness: 79-year-old female presented to the ER with complaints of chest pain. Pain described as substernal. Onset the morning of admission. The patient has diabetes as well as is on dialysis Friday. EKG revealed first- degree AV block. She did have a elevated troponin. Cardiology was contacted in the emergency room. 20:33 This 79 yrs old Black Female presents to ER via Wheelchair with complaints of Chest addie Pain. 20:33 The patient or guardian reports chest pain that is located primarily in the substernal addie area. Onset: this morning. The pain does not radiate. Associated signs and symptoms: The patient has no apparent associated signs or symptoms. The chest pain is described as squeezing. Duration: The patient or guardian reports multiple episodes, that wax and wane, with no pattern. Modifying factors: The symptoms are alleviated by nothing. the symptoms are aggravated by nothing. Severity of pain: At its worst the pain was mild in the emergency department the pain is unchanged. The patient has not experienced similar symptoms in the past. Allergies aspirin [From Percodan] Adverse Reaction (Verified 09/30/24 01:51) hallucination oxycodone [From Percodan] Adverse Reaction (Verified 09/30/24 01:51) hallucination Home medications list reviewed: Yes Home Medications: Carvedilol [Coreg] 12.5 mg PO BID #180 tab 07/27/24 Sacubitril/Valsartan [Entresto 24 mg-26 mg Tablet] 1 tab PO BID #90 tab 07/27/24 Albuterol Inhaler [Ventolin Inhaler*] 2 puff IH Q4HP PRN 09/30/24 Famotidine [Pepcid*] 20 mg PO DAILY 09/30/24 - Past Medical/Surgical History Diabetic: No -: ESRD (Dr. Dunbar/ Dr. Zarate)/ LF AVF MWF -: HTN -: Diastolic CHF -: Arthritis -: HLD -: Gout -: hysterectomy -: lumpectomy -: cataract surgery Psychosocial/ Personal History: Patient lives at home and is . - Family History Mother Medical History: Hypertension, Kidney disease Father Medical History: Hypertension, Kidney disease - Social History Smoking Status: Unknown if ever smoked Alcohol use: No CD- Drugs: No Caffeine use: Yes Place of Residence: Home Review of Systems 10-point ROS is otherwise unremarkable General: Malaise Cardiovascular: Chest Pain Physical Examination Temp Pulse Resp BP Pulse Ox 97.2 F 66 18 153/62 H 100 09/30/24 08:00 09/30/24 09:00 09/30/24 09:00 09/30/24 09:00 09/30/24 09:00 General: Mild distress, Delirious HEENT: Atraumatic Neck: Supple Respiratory: Normal air movement Cardiovascular: No edema, Regular rate/rhythm Gastrointestinal: Soft and benign, Non-distended Musculoskeletal: No clubbing, No contractures Integumentary: No rashes, No cyanosis Laboratory Data (last 24 hrs) 09/29/24 09/29/24 09/29/24 22:53 21:32 21:32 WBC 7.20 Hgb 13.9 Hct 41.8 Plt Count 198 PT 11.2 INR 1.07 APTT Cancelled 34.8 Sodium Potassium BUN Creatinine Glucose Magnesium Total Bilirubin AST ALT Alkaline Phosphatase Lipase 09/29/24 21:32 WBC Hgb Hct Plt Count PT INR APTT Sodium 136 Potassium 4.7 BUN 44 H Creatinine 7.04 H Glucose 131 H Magnesium 1.9 Total Bilirubin 0.4 AST 24 ALT 27 Alkaline Phosphatase 86 Lipase 303 H Imagings Data: EXAMINATION: ONE VIEW CHEST XR CLINICAL INDICATION: Female, 79 years old.,CHEST PAIN TECHNIQUE: Frontal chest projection is submitted. Examination is limited by patient positioning and technique. COMPARISON: 07/27/2024 FINDINGS: The lungs are grossly clear except for minimal residual right basal opacification although suboptimal inspiratory effort somewhat limits evaluation. No pneumothorax or sizable effusion. The heart is normal in size. Mediastinal contours are unremarkable. IMPRESSION: No acute intrathoracic abnormalities. Improved aeration since prior exam with minimal residual right basal opacification, could reflect atelectasis. Conclusions/Impression: ESRD on HD MWF -Acute HD today post heart cath -Seen and examined on HD in the ICU/ Agitated/ Delirious HTN with CKD/ CHF -Restart Entresto BID Diastolic CHF, chronic -UF with HD DM II with CKD -RISS CAD with Chest Pain -Follow up with cardiology Toxic Metabolic Encephalopathy sp cardiac cath -Acute HD ordered Case reviewed with Dr. Scherer 45min patient care. The patient was seen pre and post cardiac cath. Thank you kindly for the consultation
--- NOTE | 2024-09-30 11:17 | ECHO ---
HEIGHT: 4 ft 11 in WEIGHT: 132 lb 15.02 oz DATE OF STUDY: 09/30/[address]: Tatiana Arevalo MD 2-DIMENSIONAL: YES M.MODE: YES DOPPLER: YES COLOR FLOW: YES TDS: PORTABLE: YES DEFINITY: BUBBLE STUDY: DIAGNOSIS: CHEST PAIN CARDIAC HISTORY: CATHERIZATION: NO SURGERY: NO PROSTHETIC VALVE: NO PACEMAKER: NO MEASUREMENTS (cm) DIASTOLIC (NORMALS) SYSTOLIC (NORMALS) IVSd 0.9 (0.6-1.2) LA Diam 3.3 (1.9-4.0) LVEF 60-65% LVIDd 4.2 (3.5-5.7) LVIDs 2.7 (2.0-3.5) %FS 37% LVPWd 1.0 (0.6-1.2) Ao Diam 2.8 (2.0-3.7) 2 DIMENSIONAL ASSESSMENT: RIGHT ATRIUM: NORMAL LEFT ATRIUM: NORMAL RIGHT VENTRICLE: NORMAL LEFT VENTRICLE: NORMAL TRICUSPID VALVE: TRACE TRICUSPID REGURGITATION MITRAL VALVE: MILD MITRAL REGURGITATION PULMONIC VALVE: NORMAL AORTIC VALVE: TRACE AORTIC REGURGITATION PERICARDIAL EFFUSION: NONE AORTIC ROOT: NORMAL LEFT VENTRICULAR WALL MOTION: NORMAL DOPPLER/COLOR FLOW: NORMAL COMMENTS: 1. NORMAL LEFT VENTRICULAR SYSTOLIC FUNCTION, EJECTION FRACTION 60-65%, NORMAL WALL MOTION 2. NORMAL DIASTOLIC FUNCTION 3. MILD MITRAL REGURGITATION TECHNOLOGIST: ROGER HART
--- NOTE | 2024-09-30 11:26 | EKG ---
Test Date: 2024-09-29 Test Time: 19:50:52 Housing Property Manager: SILVERIO MEASUREMENT RESULTS: Intervals: Rate: 81 AR: 232 QRSD: 72 QT: 392 QTc: 455 [place]: P: 67 AR: 232 QRS: -19 T: 62 INTERPRETIVE STATEMENTS: Sinus rhythm with 1st degree AV block Left ventricular hypertrophy Abnormal ECG Compared to ECG 07/25/2024 19:10:06 Left ventricular hypertrophy now present Electronically Signed On 09-30-24 11:24:41 CATTLE EXAMINER by Syed Hurtado
[2024-09-30] MEDS: INSULIN REGULAR (HUMAN) 100 UNIT/ML SQ SCH (11:30)
[2024-09-30] MEDS ORDERED: ONDANSETRON 4 MG/2 ML VIAL ONE ×2 (12:02→12:52)
[2024-09-30] MEDS ORDERED: ADENOSINE 6 MG/ 2ML VIAL IV ONE (12:04)
[2024-09-30] MEDS ORDERED: Phenylephrine HCl 10 MG/ML 1 ML VIAL ONE (12:05)
[2024-09-30] MEDS ORDERED: NITROPRUSSIDE 50 MG VIAL IV ONE (12:10)
[2024-09-30] MEDS: EPTIFIBATIDE 20 MG/10 ML VIAL IV ONE (12:51)
[2024-09-30] MEDS: EPTIFIBATIDE 75 MG/100 ML VIAL IV ONE (12:52)
[2024-09-30] MEDS ORDERED: NALOXONE 0.4 MG/ML VIAL ONE (12:56)
[2024-09-30] MEDS ORDERED: EPTIFIBATIDE 75 MG/100 ML VIAL IV SCH (13:00)
--- NOTE | 2024-09-30 14:40 | RAD REPORT ---
EXAM: CT Ct Stroke Brain Wo Cont HISTORY: R/O Stroke COMPARISON: 09/10/2023 TECHNIQUE: Multiple contiguous axial images were obtained for a CT of the brain without contrast. Sag ittal and coronal reformats were performed. One or more of the following dose reduction techniques were used: Automated exposure control, adjus tment of the mA and kV according to patient size, and iterative reconstruction. Unless otherwise specified, incidental findings do not require dedicated imaging follow-up. FINDINGS: Motion artifact limits evaluation, despite attempts at repeat imaging. Residual intravascular contras t along the campo of Roth vessels and dural venous sinuses also limits evaluation, as it could theoretically obscure evaluation of subtle subarachnoid hemorrhage. No evidence of hydrocephalus, intracranial hemorrhage, or extra-axial fluid collection. Moderate brain atrophy with moderate periventricular and deep white matter chronic microvascular isc hemic changes, stable. The calvarium is intact. The visualized paranasal sinuses and mastoid air cells are essentially clear . IMPRESSION: No evidence of acute intracranial abnormality, allowing for limitations mentioned above. Stable deep white matter patchy hypodensities, nonspecific, but suggestive of chronic small vessel is chemic changes. THIS REPORT CONTAINS FINDINGS THAT MAY BE CRITICAL TO PATIENT CARE. The findings were verbally commun icated via telephone to Deana Scherer MD on 09/30/2024 2:34PM.
[2024-09-30 15:04] LABS: Absolute Basophils 0.1 K/uL (0-0.5); Absolute Eosinophils 0.1 K/uL (0-0.5); Absolute Lymphocytes (CBC) 3.1 K/uL (0.7-4.9); Absolute Monocytes 0.5 K/uL (0.1-1.3); Absolute Neutrophil 4.6 K/uL (1.8-8.0); Basophils % 0.6 % (0-1.3); Eosinophils % 1.2 % (0-4.4); Hematocrit 42.2 % (36.0-45.0); Lymphocytes % 36.9 % (15.3-44.8); MCH 29.9 pg (27.0-35.0); MCHC 33.1 g/dL (32.0-36.0); MCV 90.4 fL (80-100); Monocytes % 5.8 % (3.3-12.3); Neutrophils % 55.5 % (41.7-73.7); Platelets 213 thou/uL (152-406); RBC Red Blood Cell Count 4.67 M/uL (3.86-4.86); Red Cell Distribution Width 19.4 % (12.1-15.2)
[2024-09-30 15:18] LABS: Anion Gap 15.8 mEq/L (5.0-15.0); Potassium 4.8 mEq/L (3.5-5.1)
[2024-09-30 15:20] LABS: PT Prothrombin Time 12.6 SECONDS (9.4-12.5); Protime INR 1.2
[2024-09-30] MEDS: DEXMEDETOMIDINE HCL 1,000 MCG in NA CHLORIDE 0.9% 490 ML IV SCH (16:36)
[2024-09-30] MEDS ORDERED: SODIUM CHLORIDE 0.9% 10ML INJ IV PRN (16:45)
[2024-09-30] MEDS: SODIUM CHLORIDE 0.9% 10ML INJ IV ONE (16:50)
[2024-09-30] MEDS ORDERED: DEXMEDETOMIDINE HCL 200 MCG in NA CHLORIDE 0.9% 98 ML IV SCH (17:00)
[2024-09-30] MEDS: PANTOPRAZOLE 40 MG INJ ONE (17:03)
[2024-09-30] MEDS ORDERED: NA CHLORIDE 0.9% 1,000 ML IV PRN (17:24)
[2024-09-30] MEDS ORDERED: MANNITOL 25% 12.5 GM/50 ML VIAL IV PRN (17:24)
[2024-09-30] MEDS: PANTOPRAZOLE 40 MG INJ IVP ONE (17:36)
[2024-09-30] MEDS ORDERED: ALBUMIN HUMAN 25% 50 ML IV SCH (18:00)
--- NOTE | 2024-09-30 20:06 | OP ---
Date of Procedure: 09/30/2024 Surgeon: Syed Hurtado Procedures Performed: 1. Selective coronary angiogram. 2. PCI of the LAD with Synergy 3.0 x 48 mm drug-eluting stent. Indication For Procedure: [id number] MD, unstable angina. Complications: None. Estimated Blood Loss: Less than 50 cc. Access: Right radial, closed by TR band. Description Of Procedure: After risks, and benefits, and alternatives were explained to the patient, patient agreed to proceed with procedure and signed informed consent. The patient was brought back to the ammunition assembly laborer, prepped and draped in sterile fashion. Time-out was performed. Sedation was admini stered. Next, right radial access was obtained using ultrasound-guided micropuncture technique. Tig er 4.0 catheter was advanced to the aortic root. Selective angiogram was done. That catheter was la ter exchanged for an XB LAD 3.0 mm guide. Heparin was administered. ACT was more than 300. Runthro ugh wire was passed across the LAD lesion. We pre-dilated the lesion with an NC 2.5 mm balloon. Nex t, Synergy 3.0 x 48 mm drug-eluting stent was placed across the lesion. Repeated angiogram showed sl ow flow in the LAD, most likely plaque down the LAD with the spasms. So repeated boluses of IC nitro was given and we postdilated the stent with an NC 3.5 mm balloon. Repeat angiogram shows improved f low. Patient kept having chest pain, so IVUS catheter was used to look into the LAD. No dissection was seen with good stent expansions. Repeated nitroglycerin IC shots was given. DOMINGA flow improved and the patient's chest pain is most likely secondary to 100% occluded septal branch. At the end of procedure, catheter was removed over a J-wire. Sheath was removed. TR band was applied. Hemostasis was achieved and the patient was moved back to Recovery in stable condition. Findings: 1. Left main normal. 2. LAD; proximal to mid diffuse heavy plaque burden with 70% to 80% disease, status post PCI with Syn ergy 3.0 x 48 mm drug-eluting stent, distal diffuse mild luminal irregularities. 3. Diagonal 1; mild luminal irregularities. 4. Left circ; mild luminal irregularities. 5. RCA; mid 30% disease and mild luminal irregularities. Assessment And Plan: 1. Significant proximal to mid LAD disease, status post PCI with Synergy 3.0 x 48 mm drug-eluting dony nt. 2. Occluded septal branch after LAD stent placement. Plan is to keep patient on Integrilin drip for 12 hours and we will continue aspirin and Brilinta 90 mg p.o. b.i.d. BUNNY/JOSE Voice ID: [id number] Report ID: [id number]
[2024-09-30 20:26] LABS: Absolute Lymphocytes (CBC) 1.3 K/uL (0.7-4.9); Absolute Monocytes 0.2 K/uL (0.1-1.3); Absolute Neutrophil 6.5 K/uL (1.8-8.0); Basophils % 0.4 % (0-1.3); Hematocrit 45.8 % (36.0-45.0); Hemoglobin 15.1 g/dL (12.0-15.0); Lymphocytes % 16.5 % (15.3-44.8); MCH 29.4 pg (27.0-35.0); MCV 89.1 fL (80-100); MPV 9.8 fL (7.6-11.3); Monocytes % 2.5 % (3.3-12.3); Neutrophils % 80.6 % (41.7-73.7); Platelets 221 thou/uL (152-406); RBC Red Blood Cell Count 5.14 M/uL (3.86-4.86); Red Cell Distribution Width 19.1 % (12.1-15.2)
[2024-09-30] MEDS: ATORVASTATIN 80 MG TAB PO SCH (21:21)
[2024-09-30] MEDS: TICAGRELOR 90 MG TABLET PO SCH (21:21)
[2024-09-30] MEDS: PANTOPRAZOLE 40 MG INJ IVP SCH (21:22)
[2024-10-01] MEDS: SACUBITRIL/VALSARTAN 24/26 MG TAB PO SCH (08:06)
--- NOTE | 2024-10-01 11:29 | P.PN ---
Nephrology note (S) Pt remains in the ICU, still reporting some chest pain, vitals stable, not any drips currently, no acute dyspnea, on LFNC Vitals reviewed in the EMR General: Cooperative, Other (Appears chronically ill) HEENT: Atraumatic, Normocephalic, Other (LFNC) Neck: Supple Respiratory: Other (non tachypnec, no wheezing) Cardiovascular: Other (Non tachy, cardiac murmur) Gastrointestinal: Soft and benign, Non-distended, No tenderness Musculoskeletal: No swelling, No contractures, Other (Lt forearm AV access with bruit) Integumentary: No rashes Neurological: Awake, alert, non focal Laboratory Data (last 24 hrs) Reviewed Conclusions/Impression: 1. End-stage renal disease, on dialysis MWF as an OP, HD performed yesterday, no urgent indication to repeat today. Ordered labs to f/u on metab profile 2. NSTEMI, UA s/p LHC with PCI/MEE, complex procedure, cardiology op report reviewed, management per Cardiology 3. Chronic HTN with heart and kidney disease, chronic pulm edema -monitor closely 4. Chronic diastolic CHF -cont Entresto dose, titrate to target BP < 130/80, maintain dry weight Abbe Zarate MD, ANGELINA
[2024-10-01 11:52] LABS: Albumin 3.1 g/dL (3.4-5.0); Anion Gap 13.8 mEq/L (5.0-15.0); Phosphorus 6.5 mg/dL (2.5-4.9); Potassium 4.8 mEq/L (3.5-5.1)
[2024-10-01 13:37] LABS: Absolute Basophils 0.1 K/uL (0-0.5); Absolute Lymphocytes (CBC) 2.4 K/uL (0.7-4.9); Absolute Monocytes 1.2 K/uL (0.1-1.3); Absolute Neutrophil 6.5 K/uL (1.8-8.0); Basophils % 0.9 % (0-1.3); Eosinophils % 0.1 % (0-4.4); Hematocrit 37.7 % (36.0-45.0); Hemoglobin 12.5 g/dL (12.0-15.0); Lymphocytes % 23.3 % (15.3-44.8); MCH 29.6 pg (27.0-35.0); MCHC 33.2 g/dL (32.0-36.0); MCV 89.1 fL (80-100); MPV 9.8 fL (7.6-11.3); Monocytes % 11.7 % (3.3-12.3); Nucleated Red Blood Cells % 0.1 % (0-0); Platelets 187 thou/uL (152-406); RBC Red Blood Cell Count 4.23 M/uL (3.86-4.86); Red Cell Distribution Width 18.9 % (12.1-15.2)
[2024-10-01 15:18] LABS: Hepatitis B Surface Ab - Quant > 1000.00 mIU/mL (<8.0); Hepatitis B surface AG Interp. Nonreactive (Nonreactive)
[2024-10-01 15:19] LABS: HBsAG Nonreactive Report Report
--- NOTE | 2024-10-01 15:37 | PN ---
Date of Progress Note: 10/01/2024 Subjective: Seen by bedside. She is more alert and awake today. Her swelling of the right upper ex tremity, has improved significantly. Denies having any chest pain or shortness of breath. Review of Systems: No chest pain, shortness of breath, orthopnea, cough, nausea, vomiting, diarrhea. All other systems reviewed are negative. Physical Examination: Vital Signs: Reviewed. Head and Neck: Pupils are equal, reactive to light. Intact eye movements. No JVD. No cervical lym phadenopathy. Neck supple. Thyroid is not enlarged. Lungs: Clear to auscultation bilaterally. No rhonchi, wheezing, or crackles. No accessory muscle u se. Heart: Irregular. No extra sounds. Abdomen: Soft, nontender. Bowel sounds positive. No organomegaly. No masses or hernia. No rigidi ty or rebound. Extremities: No clubbing or cyanosis. There is mild edema on the right hand with significant improv ement and pulses are intact. Movement is intact. Neurologic: Alert, awake. No acute focal deficits appreciated. Investigations: BUN 45, creatinine 7.98. Assessment/recommendation: 1. [id number] myocardial infarction, culprit is LAD, status post PCI successfully. No chest pa in. Continue baby aspirin, Brilinta, and high-dose statin. 2. Dyslipidemia. Continue Lipitor 80 mg at bedtime. 3. End-stage renal disease, on hemodialysis. Continue current therapy. 4. Hypertension. Blood pressure is acceptable. Continue to monitor. 5. Right hand swelling. She had a blood draw yesterday when she was on Integrilin, developed signifi cant swelling and with the arm elevation, it improved significantly. No signs of compartment syndrom e. We will monitor and this patient can be followed up on an outpatient basis and to be discharged on dual antiplatelet therapy and high-dose statin. SR/MODL Voice ID: [id number] Report ID: [id number]
[2024-10-01] MEDS: ACETAMINOPHEN 325 MG TABLET PO PRN (20:13)
[2024-10-02 04:21] VITALS: BMI 28.0
[2024-10-02] MEDS: dexAMETHasone 4 MG/ML VIAL ONE (15:50)
[2024-10-02] MEDS: ONDANSETRON 4 MG/2 ML VIAL ONE (15:52)
[2024-10-02] MEDS: ONDANSETRON 4 MG/2 ML VIAL IV ONE (15:53)
[2024-10-02] MEDS: dexAMETHasone 4 MG/ML VIAL IV ONE (16:00)
[2024-10-02] MEDS ORDERED: METOPROLOL TARTRATE 5 MG/5 ML INJ IV PRN (16:11)
[2024-10-02] MEDS: LORazepam 2 MG/ML VIAL IV ONE (16:32)
[2024-10-02] MEDS: cloNIDine HCL 0.1 MG TAB PO ONE (16:33)
[2024-10-02] MEDS: MAGNES/ALUMIN/SIMET 30ML UCUP PO ONE (18:48)
--- NOTE | 2024-10-02 20:39 | P.PN ---
Date of Service: 10/02/24 Vital Signs Temp Pulse Resp BP Pulse Ox 97.2 F 91 H 17 178/94 H 100 10/02/24 04:00 10/02/24 16:33 10/02/24 09:00 10/02/24 16:33 10/02/24 09:00 Medications Acetaminophen (Acetaminophen 325 Mg Tablet) 650 mg PO Q4HP PRN PRN Reason: Pain scale 2-4 (Mild) Last Admin: 10/01/24 20:13 Dose: 650 mg Al Hydrox/Mg Hydrox/Simethicone (Magnes/Alumin/Simet 30ml Ucup) 30 ml PO Q6H PRN PRN Reason: INDIGESTION Aspirin (Aspirin Ec 81 Mg Tab) 81 mg PO DAILY [facility] Last Admin: 10/02/24 08:24 Dose: 81 mg Atorvastatin Calcium (Atorvastatin 80 Mg Tab) 80 mg PO BEDTIME SELMA Last Admin: 10/01/24 20:13 Dose: 80 mg Famotidine (Famotidine 20 Mg/2 Ml Vial) 20 mg IV DAILY [facility]; Protocol Glucagon (Glucagon 1 Mg/Vial) 1 mg IM 1X PRN PRN Reason: HYPOGLYCEMIA Heparin Sodium (Porcine) (Heparin 1,000 Unit/Ml Vial) 6,000 unit IV EVERY HD PRN PRN Reason: AFTER EACH HD Dextrose (Dextrose 10% Water Iv Soln.) 125 mls @ 0 mls/hr IV PRN PRN; Protocol PRN Reason: HYPOGLYCEMIA Dexmedetomidine HCl 1,000 mcg/ (Sodium Chloride) 500 mls @ 6.03 mls/hr IV TITR SELMA; Protocol Last Titration: 09/30/24 21:00 Dose: 0 mcg/kg/hr, 0 mls/hr Insulin Human Regular (Insulin Regular (Human) 100 Unit/Ml) 0 unit SQ ACHS SELMA; Protocol Last Admin: 10/02/24 16:30 Dose: Not Given Metoprolol Tartrate (Metoprolol Tartrate 5 Mg/5 Ml Inj) 5 mg IV Q6H PRN PRN Reason: SBP>160 Pantoprazole Sodium (Pantoprazole 40 Mg Inj) 40 mg IVP Q12HR SELMA; Protocol Last Admin: 10/02/24 08:25 Dose: 40 mg Sodium Chloride (Sodium Chloride 0.9% 10ml Inj) 10 ml IV Q12HR PRN PRN Reason: DILUANT Ticagrelor (Ticagrelor 90 Mg Tablet) 90 mg PO BID [facility] Last Admin: 10/02/24 08:25 Dose: 90 mg Assessment/ Plan: Nephrology No dyspnea No chest pain Feeling better today No acute events overnight Vitals, medications, blood work and imaging reviewed in the chart General: Mild distress, Delirious HEENT: Atraumatic Neck: Supple Respiratory: Normal air movement Cardiovascular: No edema, Regular rate/rhythm Gastrointestinal: Soft and benign, Non-distended Musculoskeletal: No clubbing, No contractures Integumentary: No rashes, No cyanosis Laboratory Data (last 24 hrs) 09/29/24 09/29/24 09/29/24 22:53 21:32 21:32 WBC 7.20 Hgb 13.9 Hct 41.8 Plt Count 198 PT 11.2 INR 1.07 APTT Cancelled 34.8 Sodium Potassium BUN Creatinine Glucose Magnesium Total Bilirubin AST ALT Alkaline Phosphatase Lipase 09/29/24 21:32 WBC Hgb Hct Plt Count PT INR APTT Sodium 136 Potassium 4.7 BUN 44 H Creatinine 7.04 H Glucose 131 H Magnesium 1.9 Total Bilirubin 0.4 AST 24 ALT 27 Alkaline Phosphatase 86 Lipase 303 H Imagings Data: EXAMINATION: ONE VIEW CHEST XR CLINICAL INDICATION: Female, 79 years old.,CHEST PAIN TECHNIQUE: Frontal chest projection is submitted. Examination is limited by patient positioning and technique. COMPARISON: 07/27/2024 FINDINGS: The lungs are grossly clear except for minimal residual right basal opacification although suboptimal inspiratory effort somewhat limits evaluation. No pneumothorax or sizable effusion. The heart is normal in size. Mediastinal contours are unremarkable. IMPRESSION: No acute intrathoracic abnormalities. Improved aeration since prior exam with minimal residual right basal opacification, could reflect atelectasis. Conclusions/Impression: ESRD on HD MWF -Acute HD today HTN with CKD/ CHF -Continue Entresto BID Diastolic CHF, chronic -UF with HD DM II with CKD -RISS CAD with Chest Pain -Follow up with cardiology Toxic Metabolic Encephalopathy sp cardiac cath -Continue supportive care Case reviewed with hospitalist team
[2024-10-03] MEDS: FAMOTIDINE 20 MG/2 ML VIAL IV SCH (10:43)
--- NOTE | 2024-10-03 15:59 | P.PN ---
Date of Service: 10/03/24 Vital Signs Temp Pulse Resp BP Pulse Ox 98 F 75 16 141/63 H 96 10/03/24 12:00 10/03/24 12:00 10/03/24 12:00 10/03/24 12:00 10/03/24 12:00 Medications Acetaminophen (Acetaminophen 325 Mg Tablet) 650 mg PO Q4HP PRN PRN Reason: Pain scale 2-4 (Mild) Last Admin: 10/01/24 20:13 Dose: 650 mg Al Hydrox/Mg Hydrox/Simethicone (Magnes/Alumin/Simet 30ml Ucup) 30 ml PO Q6H PRN PRN Reason: INDIGESTION Aspirin (Aspirin Ec 81 Mg Tab) 81 mg PO DAILY [facility] Last Admin: 10/03/24 10:43 Dose: 81 mg Atorvastatin Calcium (Atorvastatin 80 Mg Tab) 80 mg PO BEDTIME [facility] Last Admin: 10/02/24 21:16 Dose: 80 mg Famotidine (Famotidine 20 Mg/2 Ml Vial) 20 mg IV DAILY [facility]; Protocol Last Admin: 10/03/24 10:43 Dose: 20 mg Glucagon (Glucagon 1 Mg/Vial) 1 mg IM 1X PRN PRN Reason: HYPOGLYCEMIA Heparin Sodium (Porcine) (Heparin 1,000 Unit/Ml Vial) 6,000 unit IV EVERY HD PRN PRN Reason: AFTER EACH HD Dextrose (Dextrose 10% Water Iv Soln.) 125 mls @ 0 mls/hr IV PRN PRN; Protocol PRN Reason: HYPOGLYCEMIA Dexmedetomidine HCl 1,000 mcg/ (Sodium Chloride) 500 mls @ 6.03 mls/hr IV TITR [facility]; Protocol Last Titration: 09/30/24 21:00 Dose: 0 mcg/kg/hr, 0 mls/hr Insulin Human Regular (Insulin Regular (Human) 100 Unit/Ml) 0 unit SQ ACHS [facility]; Protocol Last Admin: 10/03/24 11:30 Dose: Not Given Metoprolol Tartrate (Metoprolol Tartrate 5 Mg/5 Ml Inj) 5 mg IV Q6H PRN PRN Reason: SBP>160 Pantoprazole Sodium (Pantoprazole 40 Mg Inj) 40 mg IVP Q12HR [facility]; Protocol Last Admin: 10/03/24 10:44 Dose: 40 mg Sodium Chloride (Sodium Chloride 0.9% 10ml Inj) 10 ml IV Q12HR PRN PRN Reason: DILUANT Ticagrelor (Ticagrelor 90 Mg Tablet) 90 mg PO BID [facility] Last Admin: 10/03/24 10:43 Dose: 90 mg Assessment/ Plan: Nephrology No dyspnea No chest pain Intermittent abd pain this morning No acute events overnight Vitals, medications, blood work and imaging reviewed in the chart General: Mild distress, Delirious HEENT: Atraumatic Neck: Supple Respiratory: Normal air movement Cardiovascular: No edema, Regular rate/rhythm Gastrointestinal: Soft and benign, Non-distended Musculoskeletal: No clubbing, No contractures Integumentary: No rashes, No cyanosis Laboratory Data (last 24 hrs) 09/29/24 09/29/24 09/29/24 22:53 21:32 21:32 WBC 7.20 Hgb 13.9 Hct 41.8 Plt Count 198 PT 11.2 INR 1.07 APTT Cancelled 34.8 Sodium Potassium BUN Creatinine Glucose Magnesium Total Bilirubin AST ALT Alkaline Phosphatase Lipase 09/29/24 21:32 WBC Hgb Hct Plt Count PT INR APTT Sodium 136 Potassium 4.7 BUN 44 H Creatinine 7.04 H Glucose 131 H Magnesium 1.9 Total Bilirubin 0.4 AST 24 ALT 27 Alkaline Phosphatase 86 Lipase 303 H Imagings Data: EXAMINATION: ONE VIEW CHEST XR CLINICAL INDICATION: Female, 79 years old.,CHEST PAIN TECHNIQUE: Frontal chest projection is submitted. Examination is limited by patient positioning and technique. COMPARISON: 07/27/2024 FINDINGS: The lungs are grossly clear except for minimal residual right basal opacification although suboptimal inspiratory effort somewhat limits evaluation. No pneumothorax or sizable effusion. The heart is normal in size. Mediastinal contours are unremarkable. IMPRESSION: No acute intrathoracic abnormalities. Improved aeration since prior exam with minimal residual right basal opacification, could reflect atelectasis. Conclusions/Impression: ESRD on HD MWF -HD TIW HTN with CKD/ CHF -Continue Entresto BID Diastolic CHF, chronic -UF with HD DM II with CKD -RISS CAD with Chest Pain NSTEMI -Follow up with cardiology Toxic Metabolic Encephalopathy sp cardiac cath -Continue supportive care Case reviewed with the hospitalist team
--- NOTE | 2024-10-04 00:11 | P.PN ---
Subjective Date of Service: 10/01/24 Patient had heart catheterization and afterwards was very nauseated and having multiple episodes of vomiting. Patient is very lethargic and not behaving like herself for the heart catheterization. Patient will be admitted to the hospital and will keep patient in ICU. Currently on Integrilin and having some bleeding so spoke with front end assistant and this is on hold. Patient admitted for inpatient hospitalization. Review of Systems 10-point ROS is otherwise unremarkable Physical Examination - Vital Signs Temperature: 97.5 F Blood Pressure: 124/59 Pulse: 91 Respirations: 17 Pulse Ox (%): 100 - Physical Exam General: Alert, In no apparent distress, Moderate distress Neck: Supple, JVD not distended, Without JVD or thyroid abnormality Respiratory: Clear to auscultation bilaterally, Normal air movement Cardiovascular: Regular rate/rhythm, Normal S1 S2 Gastrointestinal: Normal bowel sounds, Soft and benign, Non-distended, No tenderness Musculoskeletal: No clubbing, No swelling, No tenderness Neurological: Sensation intact, Cranial nerves 3-12 intact, Abnormal strength - Studies Medications List Reviewed: Yes Assessment & Plan - Problems (Diagnosis) (1) NSTEMI (non-ST elevated myocardial infarction) Current Visit: No Status: Acute (2) Chest pain, rule out acute myocardial infarction Current Visit: No Status: Acute (3) Diabetes mellitus type 2 in nonobese Current Visit: No Status: Acute (4) End stage renal disease Current Visit: No Status: Acute (5) Low back pain Onset Date: 01/17/17 Current Visit: No Status: Acute (6) Mobitz type 2 second degree heart block Current Visit: No Status: Acute (7) Diabetes Onset Date: 01/17/17 Current Visit: No Status: Chronic Qualifiers: Diabetes mellitus type: type 2 (8) HTN (hypertension) Onset Date: 01/17/17 Current Visit: No Status: Chronic Qualifiers: Hypertension type: primary hypertension Qualified Code(s): I10 - Essential (primary) hypertension - Plan 1. Type 1 versus type 2 myocardial infarction status post stent placement with Integrilin. Patient with active bleeding so Integrilin on hold. Cardiology has seen the patient and as patient has swelling in the right hand pressure dressing has been applied. Continue with anti-platelet therapy and statin therapy. 2. Type 2 diabetes; strict blood sugar control. Accu-Cheks q.a.c. and q.h.s. 3. Intractable nausea and vomiting; possibly related to CAD with stent placement; continue with anti emetics 4. ESRD; hemodialysis per Nephrology 5. Hypertension; resume antihypertensives 6. GI and DVT prophylaxis Discharge Plan: Home Plan to discharge in: Greater than 2 days - Advance Directives Does patient have a Living Will: No Does patient have a Durable POA for Healthcare: No - Code Status/Comfort Care Code Status Assessed: Yes Code Status: Full Code Critical Care: Yes Time Spent Managing PTS Care (In Minutes): 45
--- NOTE | 2024-10-04 00:17 | P.PN ---
Date of Service: 10/02/24 Subjective patient looks to be doing somewhat better today. However, after dialysis she still got little nauseated. But overall feeling better. Will work with physical therapy. Work on discharge planning at this time. Plan to hemodialyze on Friday and if she does well then possible discharge home with home health. Patient may benefit from outpatient cardiac rehab. Physical Examination - Vital Signs Reviewed - Physical Exam General: Alert, In no apparent distress, Moderate distress Respiratory: Clear to auscultation bilaterally, Normal air movement Cardiovascular: Regular rate/rhythm, Normal S1 S2 Gastrointestinal: Normal bowel sounds, Soft and benign, Non-distended, No tenderness Musculoskeletal: No clubbing, No swelling, No tenderness Neurological: Sensation intact, Cranial nerves 3-12 intact, Abnormal strength Assessment & Plan - Problems (Diagnosis) (1) type 1 versus type 2 myocardial infarction Current Visit: No Status: Acute (2) Chest pain, rule out acute myocardial infarction Current Visit: No Status: Acute (3) Diabetes mellitus type 2 in nonobese Current Visit: No Status: Acute (4) End stage renal disease Current Visit: No Status: Acute (5) Low back pain Onset Date: 01/17/17 Current Visit: No Status: Acute (6) Mobitz type 2 second degree heart block Current Visit: No Status: Acute (7) Diabetes Onset Date: 01/17/17 Current Visit: No Status: Chronic Qualifiers: Diabetes mellitus type: type 2 (8) HTN (hypertension) Onset Date: 01/17/17 Current Visit: No Status: Chronic Qualifiers: Hypertension type: primary hypertension Qualified Code(s): I10 - Essential (primary) hypertension - Plan continue with plan of care as mentioned below: 1. Type 1 versus type 2 myocardial infarction status post stent placement with Integrilin. Integrilin Was discontinued by Cardiology as his test some bleeding after the procedure. Overall, patient doing better from yesterday. Continue with treatment for CAD and start physical therapy and arrange for cardiac rehab. 2. Type 2 diabetes; strict blood sugar control. Accu-Cheks q.a.c. and q.h.s. 3. Intractable nausea and vomiting; possibly related to CAD with stent placement; continue with anti emetics 4. ESRD; hemodialysis per Nephrology 5. Hypertension; resume antihypertensives 6. GI and DVT prophylaxis Discharge Plan: Home Plan to discharge in: Greater than 2 days - Advance Directives Does patient have a Living Will: No Does patient have a Durable POA for Healthcare: No - Code Status/Comfort Care Code Status Assessed: Yes Code Status: Full Code Critical Care: no
--- NOTE | 2024-10-04 00:23 | P.PN ---
Date of Service: 10/03/24 Subjective Patient doing better. Patient more awake and alert but she did get nauseated today. Continue with current plan of care at this time with anti-platelet therapy and statin therapy. Physical Examination - Vital Signs Reviewed - Physical Exam General: Alert, In no apparent distress Respiratory: Clear to auscultation bilaterally, Normal air movement Cardiovascular: Regular rate/rhythm, Normal S1 S2 Gastrointestinal: Normal bowel sounds, Soft and benign, Non-distended, No tenderness Musculoskeletal: No clubbing, No swelling, No tenderness Neurological: Abnormal strength Assessment & Plan - Problems (Diagnosis) (1) Type 1 versus type 2 myocardial infarction Current Visit: No Status: Acute (2) Chest pain, rule out acute myocardial infarction Current Visit: No Status: Acute (3) Diabetes mellitus type 2 in nonobese Current Visit: No Status: Acute (4) End stage renal disease Current Visit: No Status: Acute (5) Low back pain Onset Date: 01/17/17 Current Visit: No Status: Acute (6) HTN (hypertension) Current Visit: No Status: Chronic (7) Diabetes Onset Date: 01/17/17 Current Visit: No Status: Chronic Qualifiers: Diabetes mellitus type: type 2 - Plan continue with plan of care as mentioned below: 1. Type 1 versus type 2 myocardial infarction status post stent placement with Integrilin. Integrilin was discontinued by Cardiology. Continue with anti- platelet therapy and statin therapy. Overall, patient doing better from yesterday. Continue with treatment for CAD and start physical therapy and arrange for cardiac rehab. 2. Type 2 diabetes; strict blood sugar control. Accu-Cheks q.a.c. and q.h.s. 3. Intractable nausea and vomiting; possibly related to CAD with stent placement; continue with anti emetics 4. ESRD; hemodialysis per Nephrology 5. Hypertension; resume antihypertensives 6. GI and DVT prophylaxis Discharge Plan: Home Plan to discharge in: Greater than 2 days - Advance Directives Does patient have a Living Will: No Does patient have a Durable POA for Healthcare: No - Code Status/Comfort Care Code Status Assessed: Yes Code Status: Full Code Critical Care: no
[2024-10-04 06:15] LABS: Absolute Eosinophils 0.1 K/uL (0-0.5); Absolute Monocytes 1.2 K/uL (0.1-1.3); Absolute Neutrophil 8.6 K/uL (1.8-8.0); Basophils % 0.3 % (0-1.3); Eosinophils % 0.5 % (0-4.4); Hematocrit 37.7 % (36.0-45.0); Hemoglobin 12.2 g/dL (12.0-15.0); Lymphocytes % 16.6 % (15.3-44.8); MCH 29.2 pg (27.0-35.0); MCHC 32.3 g/dL (32.0-36.0); MCV 90.3 fL (80-100); MPV 9.8 fL (7.6-11.3); Monocytes % 10.1 % (3.3-12.3); Neutrophils % 72.5 % (41.7-73.7); Nucleated Red Blood Cells % 0.1 % (0-0); Platelets 186 thou/uL (152-406); RBC Red Blood Cell Count 4.18 M/uL (3.86-4.86); Red Cell Distribution Width 19.2 % (12.1-15.2)
[2024-10-04 07:07] LABS: Albumin 3.1 g/dL (3.4-5.0); Albumin/Globulin Ratio 0.8 (1.1-1.8); Anion Gap 16.3 mEq/L (5.0-15.0); Bilirubin Total 0.5 mg/dL (0.2-1.0); Magnesium 2.2 mg/dL (1.6-2.4); Potassium 4.3 mEq/L (3.5-5.1); Protein, Total 7.1 g/dL (6.4-8.2)
[2024-10-04 07:09] LABS: Troponin High Sensitivity 27187.1 pg/mL (<58.9)
[2024-10-04] MEDS: PANTOPRAZOLE 40MG TABLET PO SCH (08:27)
--- NOTE | 2024-10-04 09:59 | RAD REPORT ---
EXAMINATION: US RIGHT UPPER EXTREMITY VENOUS DOPPLER CLINICAL INDICATION: edema/pain RIGHT TECHNIQUE: Complete bilateral duplex sonography of the RIGHT upper extremity veins was performed. The examination included compression for vein patency, color Doppler imaging and flow augmentation in response to distal compression of the internal jugular, brachiocephalic, subclavian, axillary, brachi al, radial, ulnar, cephalic and basilic veins. COMPARISON: No prior exam. FINDINGS: Duplex sonography testing of the veins of the RIGHT upper extremity was performed. Color flow imaging shows all veins to be compressible with [id number] color filling. Pulsatile and phasic flow is present within all upper extremity deep and superficial veins examined. IMPRESSION: There is no deep vein or superficial vein thrombosis.
--- NOTE | 2024-10-04 10:04 | RAD REPORT ---
EXAMINATION:Upper Ext Artery Uni Rubio CLINICAL INDICATION: Female, 79 years old. pain/edema RIGHT TECHNIQUE: Arterial duplex ultrasound was performed of the right upper extremity with real-time, colo r-flow, and spectral wave Doppler evaluation. COMPARISON: No prior exam. FINDINGS: Minimal plaque throughout the evaluated arterial system. Triphasic waveforms are seen throughout the evaluated right upper extremity arterial system. No worri some pleural abnormality seen. No other suspicious findings. IMPRESSION: No worrisome flow abnormality detected.
--- NOTE | 2024-10-04 10:43 | P.PN ---
Subjective Date of Service: 10/04/24 Chief Complaint: chest pain Subjective: No new changes, No C/O voiced, Tolerating diet, Ambulating, Improving Review of Systems 10-point ROS is otherwise unremarkable Physical Examination - Vital Signs Temperature: 97.7 F Blood Pressure: 129/57 Pulse: 82 Respirations: 16 Pulse Ox (%): 99 - Physical Exam General: Alert, In no apparent distress HEENT: Atraumatic, PERRLA, EOMI Neck: Supple, JVD not distended Respiratory: Clear to auscultation bilaterally, Normal air movement Cardiovascular: Regular rate/rhythm, Normal S1 S2 Gastrointestinal: Normal bowel sounds, No tenderness Musculoskeletal: No tenderness Integumentary: No rashes Neurological: Normal speech, Normal tone, Normal affect Lymphatics: No axilla or inguinal lymphadenopathy - Studies Medications List Reviewed: Yes Assessment And Plan - Current Problems (Diagnosis) (1) NSTEMI (non-ST elevated myocardial infarction) Current Visit: No Status: Acute Plan: Patient underwent coronary angiogram with PCI of LAD, patient had an acute occlusion of septal branch that caused minor OH, patient is feeling better, deneis chest pain, no complaints Patient had blood drawn on right arm that caused swelling on her palm, improved, no neurological deficit, US venous and arterial are negative. ASA 81 mg daily Brilinta 90 mg po BID for 12 months Lipitor 40 mg daily
[2024-10-04] MEDS: MAGNES/ALUMIN/SIMET 30ML UCUP PO PRN (15:19)
--- NOTE | 2024-10-04 18:14 | P.PN ---
Date of Service: 10/04/24 Subjective Patient doing better. Patient awake and alert. Continue with current plan of care at this time with anti-platelet therapy and statin therapy. Awaiting dialysis today Physical Examination - Vital Signs Reviewed - Physical Exam General: Alert, In no apparent distress Respiratory: Clear to auscultation bilaterally, Normal air movement Cardiovascular: Regular rate/rhythm, Normal S1 S2 Gastrointestinal: Normal bowel sounds, Soft and benign, Non-distended, No tenderness Musculoskeletal: No clubbing, No swelling, No tenderness Neurological: Abnormal strength Assessment & Plan - Problems (Diagnosis) (1) Type 1 versus type 2 myocardial infarction Current Visit: No Status: Acute (2) Chest pain, rule out acute myocardial infarction Current Visit: No Status: Acute (3) Diabetes mellitus type 2 in nonobese Current Visit: No Status: Acute (4) End stage renal disease Current Visit: No Status: Acute (5) Low back pain Onset Date: 01/17/17 Current Visit: No Status: Acute (6) HTN (hypertension) Current Visit: No Status: Chronic (7) Diabetes Onset Date: 01/17/17 Current Visit: No Status: Chronic Qualifiers: Diabetes mellitus type: type 2 - Plan continue with plan of care as mentioned below: 1. Type 1 versus type 2 myocardial infarction status post stent placement with Integrilin. Integrilin was discontinued by Cardiology. Continue with anti- platelet therapy and statin therapy. Overall, patient doing better from yesterday. Continue with treatment for CAD and start physical therapy and arrange for cardiac rehab. 2. Type 2 diabetes; strict blood sugar control. Accu-Cheks q.a.c. and q.h.s. 3. Intractable nausea and vomiting; possibly related to CAD with stent placement; continue with anti emetics 4. ESRD; hemodialysis per Nephrology 5. Hypertension; resume antihypertensives 6. GI and DVT prophylaxis 10/04/24 Ms. Chou is without complaints of chest pain, shortness of breath, or nausea. She will be discharged home when cleared by Cardio, Nephro, post dialysis today, and when renewed for home PT. Discharge Plan: Home Plan to discharge in: Greater than 2 days - Advance Directives Does patient have a Living Will: No Does patient have a Durable POA for Healthcare: No - Code Status/Comfort Care Code Status Assessed: Yes Code Status: Full Code Critical Care: no
--- NOTE | 2024-10-04 20:48 | P.PN ---
Date of Service: 10/04/24 Vital Signs Temp Pulse Resp BP Pulse Ox 97.7 F 74 16 134/59 L 99 10/04/24 12:00 10/04/24 12:00 10/04/24 12:00 10/04/24 12:00 10/04/24 12:00 Medications Acetaminophen (Acetaminophen 325 Mg Tablet) 650 mg PO Q4HP PRN PRN Reason: Pain scale 2-4 (Mild) Last Admin: 10/01/24 20:13 Dose: 650 mg Al Hydrox/Mg Hydrox/Simethicone (Magnes/Alumin/Simet 30ml Ucup) 30 ml PO Q6H PRN PRN Reason: INDIGESTION Last Admin: 10/04/24 15:19 Dose: 30 ml Aspirin (Aspirin Ec 81 Mg Tab) 81 mg PO DAILY [facility] Last Admin: 10/04/24 08:27 Dose: 81 mg Atorvastatin Calcium (Atorvastatin 80 Mg Tab) 80 mg PO BEDTIME [facility] Last Admin: 10/03/24 21:00 Dose: 80 mg Glucagon (Glucagon 1 Mg/Vial) 1 mg IM 1X PRN PRN Reason: HYPOGLYCEMIA Heparin Sodium (Porcine) (Heparin 1,000 Unit/Ml Vial) 6,000 unit IV EVERY HD PRN PRN Reason: AFTER EACH HD Dextrose (Dextrose 10% Water Iv Soln.) 125 mls @ 0 mls/hr IV PRN PRN; Protocol PRN Reason: HYPOGLYCEMIA Insulin Human Regular (Insulin Regular (Human) 100 Unit/Ml) 0 unit SQ ACHS [facility]; Protocol Last Admin: 10/04/24 16:30 Dose: Not Given Metoprolol Tartrate (Metoprolol Tartrate 5 Mg/5 Ml Inj) 5 mg IV Q6H PRN PRN Reason: SBP>160 Pantoprazole Sodium (Pantoprazole 40mg Tablet) 40 mg PO BIDAC [facility]; Protocol Last Admin: 10/04/24 15:09 Dose: 40 mg Sodium Chloride (Sodium Chloride 0.9% 10ml Inj) 10 ml IV Q12HR PRN PRN Reason: DILUANT Ticagrelor (Ticagrelor 90 Mg Tablet) 90 mg PO BID [facility] Last Admin: 10/04/24 08:27 Dose: 90 mg Assessment/ Plan: Nephrology No dyspnea No chest pain Intermittent abd pain this morning No acute events overnight Vitals, medications, blood work and imaging reviewed in the chart General: Mild distress, Delirious HEENT: Atraumatic Neck: Supple Respiratory: Normal air movement Cardiovascular: No edema, Regular rate/rhythm Gastrointestinal: Soft and benign, Non-distended Musculoskeletal: No clubbing, No contractures Integumentary: No rashes, No cyanosis Laboratory Data (last 24 hrs) 09/29/24 09/29/24 09/29/24 22:53 21:32 21:32 WBC 7.20 Hgb 13.9 Hct 41.8 Plt Count 198 PT 11.2 INR 1.07 APTT Cancelled 34.8 Sodium Potassium BUN Creatinine Glucose Magnesium Total Bilirubin AST ALT Alkaline Phosphatase Lipase 09/29/24 21:32 WBC Hgb Hct Plt Count PT INR APTT Sodium 136 Potassium 4.7 BUN 44 H Creatinine 7.04 H Glucose 131 H Magnesium 1.9 Total Bilirubin 0.4 AST 24 ALT 27 Alkaline Phosphatase 86 Lipase 303 H Imagings Data: EXAMINATION: ONE VIEW CHEST XR CLINICAL INDICATION: Female, 79 years old.,CHEST PAIN TECHNIQUE: Frontal chest projection is submitted. Examination is limited by patient positioning and technique. COMPARISON: 07/27/2024 FINDINGS: The lungs are grossly clear except for minimal residual right basal opacification although suboptimal inspiratory effort somewhat limits evaluation. No pneumothorax or sizable effusion. The heart is normal in size. Mediastinal contours are unremarkable. IMPRESSION: No acute intrathoracic abnormalities. Improved aeration since prior exam with minimal residual right basal opacification, could reflect atelectasis. Conclusions/Impression: ESRD on HD MWF -HD TIW -Acute HD today HTN with CKD/ CHF -Continue Entresto BID Diastolic CHF, chronic -UF with HD DM II with CKD -RISS CAD with Chest Pain NSTEMI -Follow up with cardiology -Continue Brilinta and ASA Case reviewed with Dr. Plasencia
--- NOTE | 2024-10-05 00:28 | CON ---
Reason For Consultation: Consultation called because of altered mental status. History Of Present Illness: Ms. Chou is a 79-year-old patient, who came to [facility] on 09/29/2024 with chest pain and was evaluated by the Cardiology Service. She did have a first-degree heart block and she had elevated troponins. She was seen by the Cardiology Service and she is also followed by the Renal Service. She has end-stage renal disease, on hemodialysis. With respect to co nfusion or encephalopathy on the day of my evaluation, which is today, the patient was alert, oriente d, sitting beside the bed. She follows all commands appropriately. She was not able to recall 3 wor ds after 3 minutes. She did spell the word world backwards correctly. Some difficulty with calculat ion, unable to do that. She identified objects properly. She has no focal cranial nerve deficits on confrontation. Mild diffuse weakness in upper and lower extremity, but no focality to the arm or le g strength and sensation to stocking-glove loss, light, touch, temperature, and no focal deficits. Allergies: ASPIRIN AND OXYCODONE. Medications: At home, she is on Coreg, Entresto, Ventolin inhaler, and Pepcid. Past Medical History: In addition, her past medical history includes end-stage renal disease, on hem odialysis Friday, Friday, Friday, hypertension, diastolic congestive heart failure, arthritis, dys lipidemia, gout. Past Surgical History: , lumpectomy, cataract surgery. Family History: Hypertension and kidney disease in mother and father. Social History: No alcohol, tobacco, or IV drug use. Lives at home in single family home. Review of Systems: The patient has the chest pain as noted which is evaluated and then managed by the Cardiology Service . Otherwise, some myalgias, arthralgias. No rash. No psychiatric issues or other positives on a 10 point systems review. Physical Examination: Vital Signs: Blood pressure 121/63, pulse 84, respiratory rate 17, temperature 97.4, oxygen saturati on 100%. General: Ms. Chou is sitting at the side of bed. HEENT: She is normocephalic, atraumatic. Sclerae anicteric. Oropharynx pink, moist. Extremities: No significant clubbing, cyanosis, or edema noted. Neuro: No focal neurologic deficits. She follows all commands appropriately. At this point, it is unlikely the patient has any significant change from a baseline cognitive functioning. She had CT sc an of the head. This study showed no acute ischemic hemorrhagic findings. It was remarkable for chr onic small vessel ischemic disease with stable deep white matter patchy hypodensities when compared t o a study done on September 10, 2023, and slightly over a year ago. Assessment: Again, no new neurological workup is needed. She likely has a baseline level of cogniti ve functioning, possibly worsened by the intercurrent illness. She may continue with all comorbid co ndition medications. She does not require further neurological workup or followup. She will be seen as needed. MELVIN/JOSE Voice ID: [id number] Report ID: [id number]
--- NOTE | 2024-10-05 11:38 | P.PN ---
Subjective Date of Service: 10/05/24 Chief Complaint: chest pain Subjective: No new changes, No C/O voiced, Tolerating diet, Ambulating, Improving Review of Systems 10-point ROS is otherwise unremarkable Physical Examination - Vital Signs Temperature: 98.1 F Blood Pressure: 160/51 Pulse: 84 Respirations: 16 Pulse Ox (%): 100 - Physical Exam General: Alert, In no apparent distress HEENT: Atraumatic, PERRLA, EOMI Neck: Supple, JVD not distended Respiratory: Clear to auscultation bilaterally, Normal air movement Cardiovascular: Regular rate/rhythm, Normal S1 S2 Gastrointestinal: Normal bowel sounds, No tenderness Musculoskeletal: No tenderness Integumentary: No rashes Neurological: Normal speech, Normal tone, Normal affect Lymphatics: No axilla or inguinal lymphadenopathy - Studies Medications List Reviewed: Yes Assessment And Plan - Current Problems (Diagnosis) (1) NSTEMI (non-ST elevated myocardial infarction) Current Visit: No Status: Acute Plan: Patient underwent coronary angiogram with PCI of LAD, patient had an acute occlusion of septal branch that caused minor MA, patient is feeling better, deneis chest pain, no complaints Patient had blood drawn on right arm that caused swelling on her palm, improved, no neurological deficit, US venous and arterial are negative. ASA 81 mg daily Brilinta 90 mg po BID for 12 months Lipitor 40 mg daily Cardiology will sign off, call with any questions.
--- NOTE | 2024-10-05 12:50 | EKG ---
Test Date: 2024-10-02 Test Time: 15:58:37 Greige Goods Examiner: FER MEASUREMENT RESULTS: Intervals: Rate: 87 WY: 162 QRSD: 64 QT: 384 QTc: 462 [place]: P: 46 WY: 162 QRS: -6 T: 40 INTERPRETIVE STATEMENTS: Normal sinus rhythm Possible Left atrial enlargement Nonspecific T wave abnormality Abnormal ECG Compared to ECG 09/29/2024 19:50:52 T-wave abnormality now present First degree AV block no longer present Left ventricular hypertrophy no longer present Electronically Signed On 10-05-24 12:44:47 FISH HATCHERY SPECIALIST by Syed Hurtado
--- NOTE | 2024-10-05 18:32 | P.PN ---
Date of Service: 10/05/24 Subjective Patient very sedate today. Dialysis last pm. Continue with current plan of care at this time with anti-platelet therapy and statin therapy. Right hand remains tender. FSBS rechecked (124) as pt slept through breakfast with tray untouched at bedside. Physical Examination - Vital Signs Reviewed - Physical Exam General: sedate, in no apparent distress Respiratory: Clear to auscultation bilaterally, Normal air movement Cardiovascular: Regular rate/rhythm, Normal S1 S2 Gastrointestinal: Normal bowel sounds, Soft and benign, Non-distended, No tenderness Musculoskeletal: No clubbing, No swelling, No tenderness except to right hand Neurological: Abnormal strength Assessment & Plan - Problems (Diagnosis) (1) Type 1 versus type 2 myocardial infarction Current Visit: No Status: Acute (2) Chest pain, rule out acute myocardial infarction Current Visit: No Status: Acute (3) Diabetes mellitus type 2 in nonobese Current Visit: No Status: Acute (4) End stage renal disease Current Visit: No Status: Acute (5) Low back pain Onset Date: 01/17/17 Current Visit: No Status: Acute (6) HTN (hypertension) Current Visit: No Status: Chronic (7) Diabetes Onset Date: 01/17/17 Current Visit: No Status: Chronic Qualifiers: Diabetes mellitus type: type 2 - Plan continue with plan of care as mentioned below: 1. Type 1 versus type 2 myocardial infarction status post stent placement with Integrilin. Integrilin was discontinued by Cardiology. Continue with anti- platelet therapy and statin therapy. Overall, patient doing better from yesterday. Continue with treatment for CAD and start physical therapy and arrange for cardiac rehab. 2. Type 2 diabetes; strict blood sugar control. Accu-Cheks q.a.c. and q.h.s. 3. Intractable nausea and vomiting; possibly related to CAD with stent placement; continue with anti emetics 4. ESRD; hemodialysis per Nephrology 5. Hypertension; resume antihypertensives 6. GI and DVT prophylaxis 10/04/24 Ms. Chou is without complaints of chest pain, shortness of breath, or nausea. She will be discharged home when cleared by Cardio, Neuro, post dialysis today, and when renewed for home PT. 10/05/24 Ms. Chou was cleared by Neuro last pm, cleared by cardio this am, and rec'd dialysis last pm. Moving forward with discharge planning but pt is sedate this am and will need to observe through today to see if she is more comfortable and safe for discharge tomorrow. Discharge Plan: Home Plan to discharge in: Tomorrow - Advance Directives Does patient have a Living Will: No Does patient have a Durable POA for Healthcare: No - Code Status/Comfort Care Code Status Assessed: Yes Code Status: Full Code Critical Care: no
[2024-10-05] MEDS: SIMETHICONE 125 MG TAB PO PRN (18:47)
--- NOTE | 2024-10-05 21:03 | P.PN ---
Date of Service: 10/05/24 Vital Signs Temp Pulse Resp BP Pulse Ox 99.1 F 87 16 111/46 L 100 10/05/24 16:00 10/05/24 16:00 10/05/24 16:00 10/05/24 16:00 10/05/24 16:00 Medications Acetaminophen (Acetaminophen 325 Mg Tablet) 650 mg PO Q4HP PRN PRN Reason: Pain scale 2-4 (Mild) Last Admin: 10/01/24 20:13 Dose: 650 mg Al Hydrox/Mg Hydrox/Simethicone (Magnes/Alumin/Simet 30ml Ucup) 30 ml PO Q6H PRN PRN Reason: INDIGESTION Last Admin: 10/04/24 15:19 Dose: 30 ml Aspirin (Aspirin Ec 81 Mg Tab) 81 mg PO DAILY [facility] Last Admin: 10/05/24 08:32 Dose: 81 mg Atorvastatin Calcium (Atorvastatin 80 Mg Tab) 80 mg PO BEDTIME SELMA Last Admin: 10/05/24 19:59 Dose: 80 mg Glucagon (Glucagon 1 Mg/Vial) 1 mg IM 1X PRN PRN Reason: HYPOGLYCEMIA Heparin Sodium (Porcine) (Heparin 1,000 Unit/Ml Vial) 6,000 unit IV EVERY HD PRN PRN Reason: AFTER EACH HD Dextrose (Dextrose 10% Water Iv Soln.) 125 mls @ 0 mls/hr IV PRN PRN; Protocol PRN Reason: HYPOGLYCEMIA Insulin Human Regular (Insulin Regular (Human) 100 Unit/Ml) 0 unit SQ ACHS [facility]; Protocol Last Admin: 10/05/24 20:31 Dose: Not Given Metoprolol Tartrate (Metoprolol Tartrate 5 Mg/5 Ml Inj) 5 mg IV Q6H PRN PRN Reason: SBP>160 Pantoprazole Sodium (Pantoprazole 40mg Tablet) 40 mg PO BIDAC [facility]; Protocol Last Admin: 10/05/24 16:52 Dose: 40 mg Simethicone (Simethicone 125 Mg Tab) 250 mg PO Q12H PRN PRN Reason: GAS Last Admin: 10/05/24 18:47 Dose: 250 mg Sodium Chloride (Sodium Chloride 0.9% 10ml Inj) 10 ml IV Q12HR PRN PRN Reason: DILUANT Ticagrelor (Ticagrelor 90 Mg Tablet) 90 mg PO BID [facility] Last Admin: 10/05/24 19:59 Dose: 90 mg Assessment/ Plan: Nephrology No dyspnea No chest pain No acute events overnight Vitals, medications, blood work and imaging reviewed in the chart General: NAD HEENT: Atraumatic Neck: Supple Respiratory: Normal air movement Cardiovascular: No edema, Regular rate/rhythm Gastrointestinal: Soft and benign, Non-distended Musculoskeletal: No clubbing, No contractures Integumentary: No rashes, No cyanosis Laboratory Data (last 24 hrs) 09/29/24 09/29/24 09/29/24 22:53 21:32 21:32 WBC 7.20 Hgb 13.9 Hct 41.8 Plt Count 198 PT 11.2 INR 1.07 APTT Cancelled 34.8 Sodium Potassium BUN Creatinine Glucose Magnesium Total Bilirubin AST ALT Alkaline Phosphatase Lipase 09/29/24 21:32 WBC Hgb Hct Plt Count PT INR APTT Sodium 136 Potassium 4.7 BUN 44 H Creatinine 7.04 H Glucose 131 H Magnesium 1.9 Total Bilirubin 0.4 AST 24 ALT 27 Alkaline Phosphatase 86 Lipase 303 H Imagings Data: EXAMINATION: ONE VIEW CHEST XR CLINICAL INDICATION: Female, 79 years old.,CHEST PAIN TECHNIQUE: Frontal chest projection is submitted. Examination is limited by patient positioning and technique. COMPARISON: 07/27/2024 FINDINGS: The lungs are grossly clear except for minimal residual right basal opacification although suboptimal inspiratory effort somewhat limits evaluation. No pneumothorax or sizable effusion. The heart is normal in size. Mediastinal contours are unremarkable. IMPRESSION: No acute intrathoracic abnormalities. Improved aeration since prior exam with minimal residual right basal opacification, could reflect atelectasis. Conclusions/Impression: ESRD on HD MWF -HD TIW HTN with CKD/ CHF -Continue Entresto BID Diastolic CHF, chronic -UF with HD DM II with CKD -RISS CAD with Chest Pain NSTEMI -Follow up with cardiology -Continue [facility] and [facility] Hospitalist and Cardiology notes reviewed
[2024-10-05 22:39] VITALS: O2SAT 100
[2024-10-06] MEDS: MORPHINE 2 MG/ML SYR IV ONE (04:59)
[2024-10-06 06:20] LABS: Absolute Lymphocytes (CBC) 1.7 K/uL (0.7-4.9); Absolute Monocytes 1.5 K/uL (0.1-1.3); Absolute Neutrophil 13.1 K/uL (1.8-8.0); Basophils % 0.2 % (0-1.3); Eosinophils % 0.2 % (0-4.4); Hematocrit 39.8 % (36.0-45.0); Hemoglobin 12.9 g/dL (12.0-15.0); Lymphocytes % 10.3 % (15.3-44.8); MCH 29.5 pg (27.0-35.0); MCHC 32.4 g/dL (32.0-36.0); MCV 91.1 fL (80-100); MPV 9.6 fL (7.6-11.3); Monocytes % 9.3 % (3.3-12.3); Platelets 207 thou/uL (152-406); RBC Red Blood Cell Count 4.37 M/uL (3.86-4.86); Red Cell Distribution Width 19.4 % (12.1-15.2)
[2024-10-06 07:05] LABS: Albumin/Globulin Ratio 0.6 (1.1-1.8); Anion Gap 14.6 mEq/L (5.0-15.0); Bilirubin Total 0.6 mg/dL (0.2-1.0); Globulin 4.8 g/dL (2.3-3.5); Magnesium 2.3 mg/dL (1.6-2.4); Phosphorus 5.4 mg/dL (2.5-4.9); Potassium 4.6 mEq/L (3.5-5.1); Protein, Total 7.8 g/dL (6.4-8.2)
--- NOTE | 2024-10-06 10:08 | P.PN ---
Subjective Date of Service: 10/06/24 Chief Complaint: chest pain Subjective: No new changes, No C/O voiced, Tolerating diet, Ambulating, Improving Review of Systems 10-point ROS is otherwise unremarkable Physical Examination - Vital Signs Temperature: 97.6 F Blood Pressure: 101/51 Pulse: 80 Respirations: 16 Pulse Ox (%): 100 - Physical Exam General: Alert, In no apparent distress HEENT: Atraumatic, PERRLA, EOMI Neck: Supple, JVD not distended Respiratory: Clear to auscultation bilaterally, Normal air movement Cardiovascular: Regular rate/rhythm, Normal S1 S2 Gastrointestinal: Normal bowel sounds, No tenderness Musculoskeletal: No tenderness Integumentary: No rashes Neurological: Normal speech, Normal tone, Normal affect Lymphatics: No axilla or inguinal lymphadenopathy - Studies Medications List Reviewed: Yes Assessment And Plan - Current Problems (Diagnosis) (1) NSTEMI (non-ST elevated myocardial infarction) Current Visit: No Status: Acute Plan: Patient underwent coronary angiogram with PCI of LAD, patient had an acute occlusion of septal branch that caused minor DC, patient is feeling better, denies chest pain, no complaints Patient had blood drawn on right arm that caused swelling on her palm, improved, no neurological deficit, US venous and arterial are negative. ASA 81 mg daily Brilinta 90 mg po BID for 12 months Lipitor 40 mg daily Cardiology will sign off, call with any questions.
--- NOTE | 2024-10-06 10:22 | P.DS ---
Admission Date: 09/29/24 Discharge Date: 10/06/24 Disposition: DC HOME/HOME HEALTH CARE Discharge Condition: GOOD Reason for Admission: chest pain Consultations: Dr. Dunbar, Dr. Hurtado, Dr. Salas Procedures: [facility] with PCI Brief History of Present Illness: 79-year-old female presented to the ER with complaints of chest pain. Pain described as substernal. Onset the morning of admission. The patient has diabetes as well as is on dialysis Friday. EKG revealed first- degree AV block. She did have a elevated troponin. Cardiology was contacted in the emergency room. Hospital Course: Ms. Chou lives at home alone with close follow up with her Children. She receives home help and has a cane, a walker, and home O2. She is feeling better over the course of her admission. Today, 10/06/24, she is to have dialysis and will be discharged home in her usual state of health with the following follow up providers. Dr. Hurtado in 1-2 weeks, [address] Salas as needed, and Dr. Dunbar as scheduled. She will continue her MWF dialysis chair time. Cardiology "Patient underwent coronary angiogram with PCI of LAD, patient had an acute occl usion of septal branch that caused minor SD, patient is feeling better, denies chest pain, no complaints." Will continue ASA 81 mg daily, Brilinta 90 mg po BID for 12 months, and Lipitor 40 mg daily Neurology "At this point, it is unlikely the patient has any significant change from a baseline cognitive functioning. She had CT scan of the head. This study showed no acute ischemic hemorrhagic findings. It was remarkable for chronic small vessel ischemic disease with stable deep white matter patchy hypodensities when compared to a study done on September 10, 2023, and slightly over a year ago." Nephrology ESRD on HD MWF, HTN with CKD/ CHF, -Continue Entresto BID Diastolic CHF, chronic -UF with HD Vital Signs/Physical Exam: Temp Pulse Resp BP Pulse Ox 97.6 F 80 16 101/51 L 100 10/06/24 10:08 10/06/24 10:08 10/06/24 10:08 10/06/24 10:08 10/06/24 10:08 General: Alert, In no apparent distress, Oriented x3, Cooperative HEENT: Atraumatic, Normocephalic Neck: JVD not distended Respiratory: Normal air movement Cardiovascular: Regular rate/rhythm, Systolic murmur Capillary refill: <2 Seconds Gastrointestinal: Soft and benign Musculoskeletal: No clubbing, No swelling Integumentary: No rashes, No breakdown Neurological: Normal speech, Normal tone, Normal affect Lymphatics: No axilla or inguinal lymphadenopathy External genitalia: Deferred Rectal: Deferred Laboratory Data at Discharge: WBC 16.30 thou/uL (4.3-10.9) H 10/06/24 05:42 Hgb 12.9 g/dL (12.0-15.0) 10/06/24 05:42 Hct 39.8 % (36.0-45.0) 10/06/24 05:42 Plt Count 207 thou/uL (152-406) 10/06/24 05:42 PT 12.6 SECONDS (9.4-12.5) H 09/30/24 14:30 INR 1.20 09/30/24 14:30 APTT 52.1 SECONDS (24.3-36.9) H 09/30/24 18:13 Sodium 129 mEq/L (136-145) L 10/06/24 05:42 Potassium 4.6 mEq/L (3.5-5.1) 10/06/24 05:42 BUN 51 mg/dL (7-18) H 10/06/24 05:42 Creatinine 10.30 mg/dL (0.55-1.02) H 10/06/24 05:42 Glucose 150 mg/dL (74-106) H 10/06/24 05:42 Phosphorus 5.4 mg/dL (2.5-4.9) H 10/06/24 05:42 Magnesium 2.3 mg/dL (1.6-2.4) 10/06/24 05:42 Total Bilirubin 0.6 mg/dL (0.2-1.0) 10/06/24 05:42 AST 40 U/L (15-37) H 10/06/24 05:42 ALT 27 U/L (13-56) 10/06/24 05:42 Alkaline Phosphatase 76 U/L (45-117) 10/06/24 05:42 Triglycerides 40 mg/dL (<150) 09/30/24 00:55 Cholesterol 204 mg/dL (<200) H 09/30/24 00:55 HDL Cholesterol 73 mg/dL (40-60) H 09/30/24 00:55 Cholesterol/HDL Ratio 2.79 09/30/24 00:55 Lipase 303 U/L (13-75) H 09/29/24 21:32 Home Medications: Carvedilol [Coreg] 12.5 mg PO BID #180 tab 07/27/24 Sacubitril/Valsartan [Entresto 24 mg-26 mg Tablet] 1 tab PO BID #90 tab 07/27/24 Albuterol Inhaler [Ventolin Inhaler*] 2 puff IH Q4HP PRN 09/30/24 Famotidine [Pepcid*] 20 mg PO DAILY 09/30/24 Aspirin [Aspirin EC 81 MG] 81 mg PO DAILY #1 bottle 10/06/24 Atorvastatin Calcium 40 mg PO DAILY #90 tab 10/06/24 Ticagrelor [Brilinta*] 90 mg PO BID #180 tab 10/06/24 New Medications: Aspirin [Aspirin EC 81 MG] 81 mg PO DAILY #1 bottle Atorvastatin Calcium 40 mg PO DAILY #90 tab Ticagrelor [Brilinta*] 90 mg PO BID #180 tab Diet: Renal Activity: Ad nathalie Followup: Ariel Morfin DO [Primary Care Provider] - Syed Hurtado MD [ACTIVE - CAN ADMIT] - Pierre Dunbar DO [ACTIVE - CAN ADMIT] - Paolo Salas MD [ASSOCIATE-ACTIVE - CAN ADMIT] -
--- NOTE | 2024-10-06 10:53 | ECHO ---
HEIGHT: 4 ft 11 in WEIGHT: 138 lb 14.259 oz DATE OF STUDY: 10/05/[address]: Deana Scherer MD 2-DIMENSIONAL: YES M.MODE: YES DOPPLER: YES COLOR FLOW: YES TDS: PORTABLE: YES DEFINITY: BUBBLE STUDY: DIAGNOSIS: ANTERIOR MYOCARDIAL INFARCTION CARDIAC HISTORY: CATHERIZATION: YES SURGERY: NO PROSTHETIC VALVE: NO PACEMAKER: NO MEASUREMENTS (cm) DIASTOLIC (NORMALS) SYSTOLIC (NORMALS) IVSd 1.0 (0.6-1.2) LA Diam 2.3 (1.9-4.0) LVEF 60-65% LVIDd 3.7 (3.5-5.7) LVIDs 2.5 (2.0-3.5) %FS 32% LVPWd 1.1 (0.6-1.2) Ao Diam 3.0 (2.0-3.7) 2 DIMENSIONAL ASSESSMENT: RIGHT ATRIUM: NORMAL LEFT ATRIUM: NORMAL RIGHT VENTRICLE: NORMAL LEFT VENTRICLE: NORMAL TRICUSPID VALVE: MILD TRICUSPID REGURGITATION MITRAL VALVE: NORMAL PULMONIC VALVE: NORMAL AORTIC VALVE: CALCIFIED PERICARDIAL EFFUSION: NONE AORTIC ROOT: NORMAL LEFT VENTRICULAR WALL MOTION: BASAL SEPTAL HYPOKINESIS DOPPLER/COLOR FLOW: GRADE I DIASTOLIC DYSFUNCTION COMMENTS: 1. NORMAL LEFT VENTRICULAR SYSTOLIC FUNCTION, EJECTION FRACTION 60-65%, NORMAL WALL MOTION EXCEPT FOR BASAL SEPTAL HYPOKINESIS 2. GRADE I DIASTOLIC DYSFUNCTION 3. NORMAL FILLING PRESSURE TECHNOLOGIST: CARLENE BUENO
[2024-10-06 17:43] VITALS: BP 125/50; TEMP 98
--- NOTE | 2024-10-06 20:33 | P.PN ---
Date of Service: 10/06/24 Vital Signs Temp Pulse Resp BP Pulse Ox 98.0 F 95 H 18 125/50 L 100 10/06/24 16:00 10/06/24 16:00 10/06/24 16:00 10/06/24 16:00 10/06/24 16:00 Assessment/ Plan: Nephrology No dyspnea No chest pain No acute events overnight Vitals, medications, blood work and imaging reviewed in the chart General: NAD HEENT: Atraumatic Neck: Supple Respiratory: Normal air movement Cardiovascular: No edema, Regular rate/rhythm Gastrointestinal: Soft and benign, Non-distended Musculoskeletal: No clubbing, No contractures Integumentary: No rashes, No cyanosis Laboratory Data (last 24 hrs) 09/29/24 09/29/24 09/29/24 22:53 21:32 21:32 WBC 7.20 Hgb 13.9 Hct 41.8 Plt Count 198 PT 11.2 INR 1.07 APTT Cancelled 34.8 Sodium Potassium BUN Creatinine Glucose Magnesium Total Bilirubin AST ALT Alkaline Phosphatase Lipase 09/29/24 21:32 WBC Hgb Hct Plt Count PT INR APTT Sodium 136 Potassium 4.7 BUN 44 H Creatinine 7.04 H Glucose 131 H Magnesium 1.9 Total Bilirubin 0.4 AST 24 ALT 27 Alkaline Phosphatase 86 Lipase 303 H Imagings Data: EXAMINATION: ONE VIEW CHEST XR CLINICAL INDICATION: Female, 79 years old.,CHEST PAIN TECHNIQUE: Frontal chest projection is submitted. Examination is limited by patient positioning and technique. COMPARISON: 07/27/2024 FINDINGS: The lungs are grossly clear except for minimal residual right basal opacification although suboptimal inspiratory effort somewhat limits evaluation. No pneumothorax or sizable effusion. The heart is normal in size. Mediastinal contours are unremarkable. IMPRESSION: No acute intrathoracic abnormalities. Improved aeration since prior exam with minimal residual right basal opacification, could reflect atelectasis. Conclusions/Impression: ESRD on HD MWF -HD TIW HTN with CKD/ CHF -Continue Entresto BID Diastolic CHF, chronic -UF with HD DM II with CKD -RISS CAD with Chest Pain NSTEMI -Follow up with cardiology -Continue [facility] Hospitalist and Cardiology notes reviewed
== END 2024-10-06 18:30 | disposition home health service (06) | DRG 321 ==
LOC: ER 19:19 → 3RD-ICU 23:32 → 4TH 10-02 14:58
PROVIDERS: ADMIT Internal Medicine; ATTEND Internal Medicine
PROC: 0270346 Dilation of Coronary Artery, One Artery, Bifurcation, with Drug-eluting Intraluminal Device, Percutaneous Approach (ICD-10-PCS; principal; 2024-09-30)
PROC: 4A023N7 Measurement of Cardiac Sampling and Pressure, Left Heart, Percutaneous Approach (ICD-10-PCS; 2024-09-30)
PROC: B2111ZZ Fluoroscopy of Multiple Coronary Arteries using Low Osmolar Contrast (ICD-10-PCS; 2024-09-30)
PROC: 5A1D70Z Performance of Urinary Filtration, Intermittent, Less than 6 Hours Per Day (ICD-10-PCS; 2024-09-30)
DX: I21.4 Non-ST elevation (NSTEMI) myocardial infarction (principal); G92.8 Other toxic encephalopathy; N18.6 End stage renal disease; I13.2 Hypertensive heart and chronic kidney disease with heart failure and with stage 5 chronic kidney disease, or end stage renal disease; I50.32 Chronic diastolic (congestive) heart failure; E11.22 Type 2 diabetes mellitus with diabetic chronic kidney disease; E11.65 Type 2 diabetes mellitus with hyperglycemia; E78.5 Hyperlipidemia, unspecified; M10.9 Gout, unspecified; I44.1 Atrioventricular block, second degree; M79.89 Other specified soft tissue disorders; M54.50 Low back pain, unspecified; I44.0 Atrioventricular block, first degree; M19.90 Unspecified osteoarthritis, unspecified site; I25.10 Atherosclerotic heart disease of native coronary artery without angina pectoris; Z78.1 Physical restraint status; Z88.5 Allergy status to narcotic agent; Z79.82 Long term (current) use of aspirin; Z79.02 Long term (current) use of antithrombotics/antiplatelets; Z79.899 Other long term (current) drug therapy; Z90.710 Acquired absence of both cervix and uterus
CPT/HCPCS: 36415; 70450; 71045; 76937; 80048; 80053; 80061; 80069; 80076; 82947; 83690; 83735; 83880; 84100; 84484; 85025; 85347; 85610; 85730; 86706; 87340; 90935; 92928; 92978; 93005; 93306; 93454; 93931; 93971; 94760; 99152; 99153; 99285; C1725; C1877; C1893; J0153; J0461; J1100; J1327; J1644; J2003; J2250; J2270; J2310; J2371; J2405; J2470; J3010; J7040; Q9967

== ENCOUNTER 2024-10-11 10:17 | Emergency (ER) | payer OTHER ==
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
--- NOTE | 2024-10-11 10:48 | ER ---
Nurse's Notes [facility] Name: Kevin Chou Age: 79 yrs Sex: Female : 1945 Arrival Date: 10/11/2024 Time: : Bed 6 Private MD: Diagnosis: Cellulitis of right finger Presentation: 10/11 10:31 Chief complaint: Patient states: Sent by PCP to r/o dvt to R arm. Pt recently had a ss cardiac cath and ever since then is having discoloration and swelling to R hand/ wrist. Family reports those symptoms have improved, but the has had a bruise to her R 4th finger tip that does not seem to be getting any better. Coronavirus screen: Client denies travel out of the [place] in the last 14 days. Ebola Screen: Patient denies exposure to infectious person. Patient denies travel to an Ebola-affected area in the 21 days before illness onset. Initial Sepsis Screen: Does the patient meet any 2 criteria? No. Patient's initial sepsis screen is negative. Does the patient have a suspected source of infection? No. Patient's initial sepsis screen is negative. Risk Assessment: Do you want to hurt yourself or someone else? Patient reports no desire to harm self or others. Onset of symptoms was October 04, 2024. 10:31 Acuity: GRETA 3 ss 10:31 Method Of Arrival: Wheelchair ss Triage Assessment: 10:45 General: Appears in no apparent distress. Behavior is calm, cooperative, appropriate bp for age. Pain:. EENT: No deficits noted. Neuro: No deficits noted. Cardiovascular: No deficits noted. Respiratory: No deficits noted. GI: No signs and/or symptoms were reported involving the gastrointestinal system. : No signs and/or symptoms were reported regarding the genitourinary system. Derm: No deficits noted. Musculoskeletal: No deficits noted. Historical: - Allergies: 10:34 Aspirin; ss 10:34 Oxycodone HCl; ss 10:34 Percodan; ss - PMHx: 10:34 kidney disease; Hypertension; DIALYSIS MWF; diabetes mellitus; ss - PSHx: 10:34 Left arm fistula; ss - Immunization history:: Client reports receiving the 2nd dose of the Covid vaccine. - Infectious Disease History:: Denies. - Social history:: Smoking status: Patient denies any tobacco usage or history of. Screenin:36 Abuse screen: Denies threats or abuse. Denies injuries from another. Nutritional ss screening: No deficits noted. Tuberculosis screening: Never had TB. 11:12 [facility] ED Fall Risk Assessment (Adult) History of falling in the last 3 months, bp including since admission No falls in past 3 months (0 pts) Confusion or Disorientation No (0 pts) Intoxicated or Sedated No (0 pts) Impaired Gait No (0 pts) Mobility Assist Device Used No (0 pt) Altered Elimination No (0 pt) Score/Fall Risk Level 0 - 2 = Low Risk Oriented to surroundings. Assessment: 10:35 Reassessment: Dr. Rogers at bedside assessing pt at this time. Son remains at bedside. ss Call light within reach. Vital Signs: 10:31 BP 136 / 72; Pulse 85; Resp 16; Pulse Ox 99% on R/A; Weight 58.97 kg; Height 4 ft. 11 ss in. ; Pain 0/10; 10:56 Temp 97.6(TE); ss 10:31 Body Mass Index 26.26 (58.97 kg, 149.86 cm) ss 10:31 Pain Scale: Adult ED Course: 10:21 Patient arrived in ED. im 10:22 Beata Rogers MD is Attending Physician. gb1 10:27 Сергей Gaspar, RN is Primary Nurse. bp 10:34 Triage completed. ss 10:34 Arm band placed on left wrist. ss 10:36 Patient has correct armband on for positive identification. Bed in low position. Call ss light in reach. Side rails up X2. Adult w/ patient. 11:11 No provider procedures requiring assistance completed. Patient did not have IV access bp during this emergency room visit. 11:12 Provided Education on: NA. bp Administered Medications: No medications were administered Outcome: 10:48 Discharge ordered by MD. gb1 11:11 Discharged to home via wheelchair, with family, bp 11:11 Condition: stable 11:11 Discharge instructions given to patient, family, Instructed on discharge instructions, follow up and referral plans. medication usage, Demonstrated understanding of instructions, follow-up care, medications, Prescriptions given X 1, 11:14 Patient left the ED. ph Signatures: Mindy Burton RN RN Salome Rosas RN RN Сергей Gaspar RN RN bp Hafsa Peralta Gina, MD MD gb1
--- NOTE | 2024-10-11 11:14 | EDPHYS ---
Physician Documentation [facility] Name: Kevin Chou Age: 79 yrs Sex: Female : 1945 Arrival Date: 10/11/2024 Time: : Bed 6 Private MD: ED Physician Beata Rogers HPI: 10/11 10:51 This 79 yrs old Black Female presents to ER via Wheelchair with complaints of Wound gb1 Check - right ring finger. 10:51 Ms. Kevin Chou is a 79-year-old -Romanian female with a right finger, ring gb1 finger area of redness and pain that she states has been there since her finger was prepped for a glucose check about a week and a half ago. She recently had a cardiac cath procedure in the hospital and has been discharged. She denies any chest pain or shortness of breath at this time she has a history of ESRD on hemodialysis Friday, diabetes, hypertension and recently received 1 cardiac stent just about a week ago. She was sent by Dr. Hurtado for evaluation of her right finger.. Historical: - Allergies: 10:34 Aspirin; ss 10:34 Oxycodone HCl; ss 10:34 Percodan; ss - PMHx: 10:34 kidney disease; Hypertension; DIALYSIS MWF; diabetes mellitus; ss - PSHx: 10:34 Left arm fistula; ss - Immunization history:: Client reports receiving the 2nd dose of the Covid vaccine. - Infectious Disease History:: Denies. - Social history:: Smoking status: Patient denies any tobacco usage or history of. Exam: 10:51 Constitutional: This is a well developed, well nourished patient who is awake, alert, gb1 and in no acute distress. Head/Face: Normocephalic, atraumatic. Eyes: Pupils equal round and reactive to light, extra-ocular motions intact. Lids and lashes normal. Conjunctiva and sclera are non-icteric and not injected. Cornea within normal limits. Periorbital areas with no swelling, redness, or edema. ENT: Nares patent. No nasal discharge, no septal abnormalities noted. Tympanic membranes are normal and external auditory canals are clear. Oropharynx with no redness, swelling, or masses, exudates, or evidence of obstruction, uvula midline. Mucous membranes moist. Neck: Trachea midline, no thyromegaly or masses palpated, and no cervical lymphadenopathy. Supple, full range of motion without nuchal rigidity, or vertebral point tenderness. No Meningismus. Chest/axilla: Normal chest wall appearance and motion. Nontender with no deformity. No lesions are appreciated. Cardiovascular: Regular rate and rhythm with a normal S1 and S2. No gallops, murmurs, or rubs. Normal PMI, no JVD. No pulse deficits. Respiratory: Lungs have equal breath sounds bilaterally, clear to auscultation and percussion. No rales, rhonchi or wheezes noted. No increased work of breathing, no retractions or nasal flaring. Abdomen/GI: Soft, non-tender, with normal bowel sounds. No distension or tympany. No guarding or rebound. No evidence of tenderness throughout. MS/ Extremity: Patient's right index finger on the palmar surface the pulp of the finger distally is erythematous and tender to the touch. There is no fluctuance or induration noted. No pus draining from the wound. Neuro: Awake and alert, GCS 15, oriented to person, place, time, and situation. Cranial nerves II-XII grossly intact. Motor strength 5/5 in all extremities. Sensory grossly intact. Cerebellar exam normal. Normal gait. Vital Signs: 10:31 BP 136 / 72; Pulse 85; Resp 16; Pulse Ox 99% on R/A; Weight 58.97 kg; Height 4 ft. 11 ss in. ; Pain 0/10; 10:56 Temp 97.6(TE); ss 10:31 Body Mass Index 26.26 (58.97 kg, 149.86 cm) ss 10:31 Pain Scale: Adult ss MDM: 10:26 Medical Screening Exam initiated gb1 10:51 Data reviewed: vital signs, nurses notes. gb1 10:56 ED course: Exam of the patient's right ring finger is consistent with a felon. There is gb1 no bruce abscess to incise and drain at this time. Patient otherwise has no signs of peripheral extension of the cellulitis I doubt tenosynovitis at this time or abscess. I will prescribe doxycycline with intent for MRSA coverage. I have explained the patient's plan of care discharge at the time of discharge to her undergone member and given this was a return precautions which are both compliant to prior to discharge home today.. Administered Medications: No medications were administered Disposition Summary: 10/11/24 10:48 Discharge Ordered Notes: Location: Home gb1 Condition: Stable gb1 Diagnosis - Cellulitis of right finger gb1 Followup: gb1 - With: Private Physician - When: - Reason: Recheck today's complaints Discharge Instructions: - Discharge Summary Sheet gb1 Brock Mccord gb1 Forms: - Medication Reconciliation Form gb1 - Antibiotic Education gb1 - Prescription Opioid Use gb1 - Patient Portal Instructions gb1 - Leadership Thank You Letter gb1 Prescriptions: - Doxycycline Hyclate 100 mg Oral Tablet - take 1 tablet ORAL route every 12 hours; 20 tablet; Refills: 0, Product gb1 Selection Permitted Signatures: Mindy Burton RN RN Beata Campos MD MD gb1
[2024-10-11 11:18] VITALS: BP 136/72; O2SAT 99
[2024-10-11 11:19] VITALS: TEMP 97.6
== END 2024-10-11 11:14 | disposition home or self-care (01) ==
LOC: ER 10:17
DX: L03.011 Cellulitis of right finger (principal)
CPT/HCPCS: 99283

== ENCOUNTER 2024-11-07 02:21 | Inpatient (IN) | payer OTHER ==
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
[2024-11-07] MEDS ORDERED: FAMOTIDINE 20 MG/2 ML VIAL IV ONE (03:12)
[2024-11-07 03:14] LABS: Absolute Eosinophils 0.1 K/uL (0-0.5); Absolute Lymphocytes (CBC) 2.4 K/uL (0.7-4.9); Absolute Monocytes 0.9 K/uL (0.1-1.3); Absolute Neutrophil 2.5 K/uL (1.8-8.0); Basophils % 0.4 % (0-1.3); Eosinophils % 2.4 % (0-4.4); Hemoglobin 11.1 g/dL (12.0-15.0); Lymphocytes % 39.9 % (15.3-44.8); MCH 31.3 pg (27.0-35.0); MCHC 33.7 g/dL (32.0-36.0); MCV 92.9 fL (80-100); MPV 8.7 fL (7.6-11.3); Monocytes % 15.3 % (3.3-12.3); Nucleated Red Blood Cells % 0.1 % (0-0); Platelets 166 thou/uL (152-406); RBC Red Blood Cell Count 3.55 M/uL (3.86-4.86); Red Cell Distribution Width 22.5 % (12.1-15.2)
--- NOTE | 2024-11-07 04:37 | EDPHYS ---
Physician Documentation [facility] Name: Kevin Chou Age: 79 yrs Sex: Female : 1945 Arrival Date: 11/07/2024 Time: 02:21 Bed 16 Private MD: ED Physician Akin Kearney HPI: 11/07 02:44 This 79 yrs old Black Female presents to ER via Unassigned with complaints of Chest ec2 Pain. 02:44 Patient arrives today for evaluation of chest pain. Patient reports left-sided chest ec2 pain. Patient reports nonexertional. Woke up from her sleep. Patient reports this feels like her GERD. No difficulty breathing, patient is ESRD with last dialysis of Friday.. Historical: - Allergies: 03:20 Aspirin; cp4 03:20 Oxycodone HCl; cp4 03:20 Percodan; cp4 - PMHx: 03:20 diabetes mellitus; DIALYSIS MWF; Hypertension; kidney disease; cp4 - PSHx: 03:20 Left arm fistula; cp4 - Immunization history:: Adult Immunizations up to date. - Infectious Disease History:: Denies. - Social history:: Smoking status: Patient denies any tobacco usage or history of. ROS: 02:44 Constitutional: as per hpi ec2 Exam: 02:44 Constitutional: GEN: NAD Head: atraumatic Eyes: EOMI Ears: External ears are ec2 normal. CV: regular rate LUNGS: no respiratory distress ABD: non-distended SKIN: no evidence of rashes MSK: no evidence of trauma Vital Signs: 03:19 BP 170 / 75; Pulse 84; Resp 18; Temp 98.2; Pulse Ox 98% ; Weight 61.23 kg; Height 4 ft. cp4 11 in. ; Pain 8/10; 03:40 BP 163 / 67; Pulse 76; Resp 18; Pulse Ox 98% ; cp4 05:31 BP 144 / 60; Pulse 80; Resp 18; Pulse Ox 97% ; cp4 03:19 Body Mass Index 27.27 (61.23 kg, 149.86 cm) cp4 03:19 Pain Scale: Adult cp4 MDM: 02:40 Medical Screening Exam initiated ec2 02:44 Data reviewed: vital signs, nurses notes. ED course: Patient arrives today for chest ec2 pain. Examination yields well-appearing nontoxic dividual is in no acute distress. Will obtain EKG, chest x-ray and cardiac profile. DDx includes gastritis, ACS, costochondritis. 04:36 ED course: Metabolic profile shows expected renal dysfunction, troponin elevated to ec2 255, CBC reassuring. Will admit for elevated troponin, cardiac workup.. 11/07 02:26 Order name: Basic Metabolic Panel; Complete Time: 04:35 ec2 11/07 02:26 Order name: CBC with Diff ec2 11/07 02:26 Order name: Troponin HS; Complete Time: 04:35 ec2 11/07 03:21 Order name: CBC Smear Scan EDMS 11/07 05:18 Order name: Urinalysis w/ reflexes EDMS 11/07 05:18 Order name: CBC with Automated Diff EDMS 11/07 05:18 Order name: CBC with Automated Diff EDMS 11/07 05:18 Order name: Comprehensive Metabolic Panel EDMS 11/07 05:18 Order name: Comprehensive Metabolic Panel EDMS 11/07 05:18 Order name: Troponin High Sensitivity EDMS 11/07 05:18 Order name: Troponin High Sensitivity EDMS 11/07 05:18 Order name: Troponin High Sensitivity EDMS 11/07 05:18 Order name: Troponin High Sensitivity EDMS 11/07 08:03 Order name: Glucose, Ancillary Testing EDMS 11/07 10:22 Order name: Ptt, Activated ph 11/07 11:07 Order name: PTT, Activated Partial Thromb EDMS 11/07 02:26 Order name: XRAY Chest (1 view) ec2 11/07 02:26 Order name: Cardiac monitoring; Complete Time: 02:37 ec2 11/07 02:26 Order name: EKG - Nurse/Tech; Complete Time: 02:50 ec2 11/07 02:26 Order name: IV Saline Lock; Complete Time: 03:10 ec2 11/07 02:26 Order name: Labs collected and sent; Complete Time: 03:07 ec2 11/07 02:26 Order name: O2 Per Protocol; Complete Time: 02:37 ec2 11/07 02:26 Order name: O2 Sat Monitoring; Complete Time: 02:37 ec2 Administered Medications: 03:23 Drug: Famotidine IVP 20 mg IVP once; dilute with 10 mL 0.9% NaCl; give over 2 minutes cp4 Route: IVP; Site: right forearm; 04:47 Follow up: Response: No adverse reaction cp4 04:47 Drug: Aspirin PO Chewable Tablet 324 mg PO once; 81 mg tablets x 4 Route: PO; cp4 05:22 Follow up: Response: No adverse reaction cp4 Disposition Summary: 11/07/24 04:36 Hospitalization Ordered Notes: Hospitalization Status: Inpatient Admission ec2 Provider: Lele Padilla ec2 Condition: Stable ec2 Problem: an acute exacerbation ec2 Symptoms: are unchanged ec2 Bed/Room Type: Standard ec2 Location: Telemetry/MedSurg (Inpatient)(11/07/24 11:36) ja1 Room Assignment: [facility](11/07/24 11:36) ja1 Diagnosis - Chest pain, unspecified ec2 - Elevated Troponin ec2 Forms: - Medication Reconciliation Form ec2 - SBAR form ec2 - Leadership Thank You Letter ec2 Signatures: Dispatcher [employer] Shon Pereyra RN RN ja1 Donita Anglin RN RN lg3 Akin Kearney MD MD ec2 Donya Poe cp4 Corrections: (The following items were deleted from the chart) 05:24 04:36 Telemetry/MedSurg (Inpatient) ec2 lg3 05:24 04:36 ec2 lg3 11:36 05:24 [facility] ER HOLD lg3 ja1 11:36 05:24 ERHOLD- lg3 ja1
--- NOTE | 2024-11-07 04:37 | ER ---
Nurse's Notes [facility] Name: Kevin Chou Age: 79 yrs Sex: Female : 1945 Arrival Date: 11/07/2024 Time: 02:21 Bed 16 Private MD: Diagnosis: Chest pain, unspecified;Elevated Troponin Presentation: 11/07 03:19 Chief complaint: Patient states: epigastric pain that started a few hours ago. Patient cp4 reports acid reflux. Coronavirus screen: Client denies travel out of the [place] in the last 14 days. At this time, the client does not indicate any symptoms associated with coronavirus-19. Ebola Screen: Patient negative for fever greater than or equal to 101.5 degrees Fahrenheit, and additional compatible Ebola Virus Disease symptoms Patient denies exposure to infectious person. Patient denies travel to an Ebola-affected area in the 21 days before illness onset. No symptoms or risks identified at this time. Initial Sepsis Screen: Does the patient meet any 2 criteria? No. Patient's initial sepsis screen is negative. Does the patient have a suspected source of infection? No. Patient's initial sepsis screen is negative. Risk Assessment: Do you want to hurt yourself or someone else? Patient reports no desire to harm self or others. Onset of symptoms was November 07, 2024. 03:19 Method Of Arrival: Wheelchair cp4 03:19 Acuity: GRETA 3 cp4 Triage Assessment: 03:20 General: Appears in no apparent distress. uncomfortable, Behavior is calm, cooperative, cp4 appropriate for age. Pain: Complains of pain in chest Pain does not radiate. Pain currently is 8 out of 10 on a pain scale. Pain began 2 hours ago. EENT: No signs and/or symptoms were reported regarding the EENT system. Neuro: Level of Consciousness is awake, alert, obeys commands, Oriented to person, place, time, situation. Cardiovascular: Patient's skin is warm and dry. Rhythm is sinus rhythm. Respiratory: Airway is patent Respiratory effort is even, unlabored. GI: Reports bloating, diarrhea, gaseousness. : No signs and/or symptoms were reported regarding the genitourinary system. Derm: No signs and/or symptoms reported regarding the dermatologic system. Musculoskeletal: No signs and/or symptoms reported regarding the musculoskeletal system. Historical: - Allergies: 03:20 Aspirin; cp4 03:20 Oxycodone HCl; cp4 03:20 Percodan; cp4 - PMHx: 03:20 diabetes mellitus; DIALYSIS MWF; Hypertension; kidney disease; cp4 - PSHx: 03:20 Left arm fistula; cp4 - Immunization history:: Adult Immunizations up to date. - Infectious Disease History:: Denies. - Social history:: Smoking status: Patient denies any tobacco usage or history of. Screenin:23 [facility] ED Fall Risk Assessment (Adult) History of falling in the last 3 months, cp4 including since admission No falls in past 3 months (0 pts) Confusion or Disorientation No (0 pts) Intoxicated or Sedated No (0 pts) Impaired Gait No (0 pts) Mobility Assist Device Used No (0 pt) Altered Elimination No (0 pt) Score/Fall Risk Level 0 - 2 = Low Risk Oriented to surroundings, Maintained a safe environment, Assessed \T\ reinforced patient's understanding of fall precautions, Hourly rounding (assess needs \T\ fall precautionary measures) done. Abuse screen: Denies threats or abuse. Denies injuries from another. Nutritional screening: No deficits noted. Tuberculosis screening: No symptoms or risk factors identified. Assessment: 03:23 Reassessment: No changes from previously documented assessment. cp4 10:48 Reassessment: Patient appears in no apparent distress at this time. Patient and/or ph family updated on plan of care and expected duration. Pain level reassessed. Patient is alert, oriented x 3, equal unlabored respirations, skin warm/dry/pink. 12:05 Reassessment:. kj2 Vital Signs: 03:19 BP 170 / 75; Pulse 84; Resp 18; Temp 98.2; Pulse Ox 98% ; Weight 61.23 kg; Height 4 ft. cp4 11 in. ; Pain 8/10; 03:40 BP 163 / 67; Pulse 76; Resp 18; Pulse Ox 98% ; cp4 05:31 BP 144 / 60; Pulse 80; Resp 18; Pulse Ox 97% ; cp4 03:19 Body Mass Index 27.27 (61.23 kg, 149.86 cm) cp4 03:19 Pain Scale: Adult cp4 ED Course: 02:22 Patient arrived in ED. jj6 02:26 Akin Kearney MD is Attending Physician. ec2 02:37 Donya Poe is Primary Nurse. cp4 02:44 XRAY Chest (1 view) In Process Unspecified. EDMS 03:14 No provider procedures requiring assistance completed. Inserted saline lock: 20 gauge cp4 in right forearm, using aseptic technique. Blood collected. Flushed with 10 mL NS. Patient maintains SpO2 saturation greater than 95% on room air. 03:20 Triage completed. cp4 03:20 Arm band placed on right wrist. Patient placed in waiting room. cp4 03:23 Bed in low position. Call light in reach. Side rails up X 1. Client placed on cp4 continuous cardiac and pulse oximetry monitoring. NIBP monitoring applied. surveillance system monitor on. Pulse ox on. NIBP on. 04:36 Lele Padilla MD is Hospitalizing Provider. ec2 05:42 Patient admitted, IV remains in place. cp4 05:42 Provided Education on: admission. cp4 10:49 Ptt, Activated Sent. rk3 Administered Medications: 03:23 Drug: Famotidine IVP 20 mg IVP once; dilute with 10 mL 0.9% NaCl; give over 2 minutes cp4 Route: IVP; Site: right forearm; 04:47 Follow up: Response: No adverse reaction cp4 04:47 Drug: Aspirin PO Chewable Tablet 324 mg PO once; 81 mg tablets x 4 Route: PO; cp4 05:22 Follow up: Response: No adverse reaction cp4 Medication: 03:23 VIS not applicable for this client. cp4 Outcome: 04:36 Decision to Hospitalize by Provider. ec2 05:41 Admitted to ER Hold. Please see [facility] for further documentation. cp4 05:41 Condition: stable 05:41 Instructed on the need for admit, 13:08 Patient left the ED. kj2 Signatures: Dispatcher [employer] EDSalome Castro, RN RN Anna Díaz jj6 Akin Kearney MD MD ec2 Donya Poe cp4 Aury Larson RN RN kj2 Louisa Turner rk3
[2024-11-07] MEDS ORDERED: ASPIRIN 81 MG CHEWABLE TABLET ONE (04:43)
[2024-11-07 04:45] LABS: Anisocytosis 1+; Blood Morphology Comment NOTED (NOT SEEN); Platelet Estimate ADEQ; White Blood Cell Scan OK (OK)
--- NOTE | 2024-11-07 05:09 | P.HP ---
Certification for Inpatient Patient admitted to: Inpatient With expected LOS: >2 Midnights Practitioner: I am a practitioner with admitting privileges, knowledge of patient current condition, hospital course, and medical plan of care. Services: Services provided to patient in accordance with Admission requirements found in Title 42 Section 412.3 of the Code of Federal Regulations Patient History Date of Service: 11/07/24 Reason for admission: Chest Pain History of Present Illness: 79 yrs old Female with past medical history of ESRD on dialysis, hypertension, diabetes, CAD status post PCI, CHF, recently brought to ER with chest pain. Pain is located in the left side of the chest with no radiation. Pressure-like feeling. Nonexertional. Woke her up from sleep. Denies any diaphoresis. Denies any shortness of breath. Pain mostly felt like acid irritation. Denies any nausea or vomiting. No fever or chills. No sick contacts. Patient was assessed in the ER and was admitted for further management of NSTEMI Allergies aspirin [From Percodan] Adverse Reaction (Verified 09/30/24 01:51) hallucination oxycodone [From Percodan] Adverse Reaction (Verified 09/30/24 01:51) hallucination Home medications list reviewed: Yes Home Medications: Carvedilol [Coreg] 12.5 mg PO BID #180 tab 07/27/24 Sacubitril/Valsartan [Entresto 24 mg-26 mg Tablet] 1 tab PO BID #90 tab 07/27/24 Albuterol Inhaler [Ventolin Inhaler*] 2 puff IH Q4HP PRN 09/30/24 Famotidine [Pepcid*] 20 mg PO DAILY 09/30/24 Aspirin [Aspirin EC 81 MG] 81 mg PO DAILY #1 bottle 10/06/24 Atorvastatin Calcium 40 mg PO DAILY #90 tab 10/06/24 Ticagrelor [Brilinta*] 90 mg PO BID #180 tab 10/06/24 - Past Medical/Surgical History Diabetic: No Past Medical History: Reviewed- Non-Contributory -: ESRD (Dr. Dunbar/ Dr. Zarate)/ LF AVF MWF -: HTN -: Diastolic CHF -: Arthritis -: HLD -: Gout Past Surgical History: Reviewed- Non-Contributory -: hysterectomy -: lumpectomy -: cataract surgery Psychosocial/ Personal History: Patient lives at home and is . - Family History Family History: Reviewed- Non-Contributory - Family History Mother -: Hypertension, Kidney disease Father -: Hypertension, Kidney disease - Social History Smoking Status: Never smoker Alcohol use: No CD- Drugs: No Caffeine use: Yes Review of Systems 10-point ROS is otherwise unremarkable Physical Examination - Vital Signs Temperature: 98.2 F Blood Pressure: 170/75 Pulse: 84 Respirations: 18 Pulse Ox (%): 94 - Physical Exam General: Alert, Oriented x3, Cooperative HEENT: Atraumatic, Normocephalic Neck: Supple, JVD not distended Respiratory: Clear to auscultation bilaterally, Normal air movement Cardiovascular: Regular rate/rhythm, Normal S1 S2 Capillary refill: <2 Seconds Gastrointestinal: Soft and benign, W/out hepatosplenomegaly Musculoskeletal: No clubbing, No swelling Neurological: Normal speech, Normal strength at 5/5 x4 extr, Cranial nerves 3-12 intact Lymphatics: No axilla or inguinal lymphadenopathy - Studies Laboratory Data (last 24 hrs) 11/07/24 11/07/24 03:02 03:02 WBC 6.00 Hgb 11.1 L Hct 33.0 L Plt Count 166 Sodium 137 Potassium 4.0 BUN 63 H Creatinine 9.29 H Glucose 131 H Assessment and Plan - Plan NSTEMI History of CAD with recent PCI to LAD Will trend cardiac enzymes Will monitor telemetry Started on aspirin and statin and Brilinta Will get an echocardiogram Cardiology consult Hypertension Antihypertensives titrated Continue home medications and titrate as needed Hyperlipidemia Continue statin ESRD on dialysis Monitor renal parameters Electrolytes monitor and replace accordingly Will consult nephrology Diabetes Insulin sliding scale Accu-Chek before every meal and at bedtime GI/DVT prophylaxis Advanced directive full code Discharge Plan: Home Plan to discharge in: 48 Hours - Advance Directives Does patient have a Living Will: No Does patient have a Durable POA for Healthcare: No - Code Status/Comfort Care Code Status: Full Code Time Spent Managing Pts Care (In Minutes): 48
[2024-11-07] MEDS ORDERED: ALBUTEROL INHALER 200 PUFF/6.7 GM IH PRN (05:17)
[2024-11-07 06:18] VITALS: BMI 27.2
--- NOTE | 2024-11-07 06:38 | RAD REPORT ---
PROCEDURE: XR Chest, 1 View CLINICAL INDICATION: The patient is 79 years old and is Female; Chest pain. TECHNIQUE: Frontal view of the chest. COMPARISON: XR Chest 09/29/2024. FINDINGS: LUNGS: Relatively low lung volumes bilaterally. Prominence of the pulmonary vasculature with perihila r and infrahilar streaky opacities. No dense focal consolidation. PLEURAL SPACE: No appreciable pleural effusion or pneumothorax. HEART: Coronary artery stent. MEDIASTINUM: Stable cardiomediastinal silhouette. BONES/JOINTS: Multilevel spondylosis. VASCULATURE: Calcified atherosclerosis of the thoracic aorta. IMPRESSION: Prominence of the pulmonary vasculature with perihilar and infrahilar streaky opacities. Findings may reflect pulmonary vascular congestion with mild pulmonary edema, bronchitis, or artifact related to crowding of the perihilar structures in the setting of low lung volumes. Correlation with proBNP l evels recommended. Electronically signed by: Enrico Munroe MD 11/07/2024 04:10 AM CDT Due to temporary technical issues with the PACS/Prezto reporting system, reports are being maisha d by the in-house radiologist without review as a courtesy to ensure prompt reporting. The interpreting radiologist is fully responsible for the content of the report. Transcribed Date/Time: 11/07/2024 6:38 AM
[2024-11-07] MEDS ORDERED: ALBUTEROL 2.5 MG/3 ML NEB SOL NEB PRN (07:10)
[2024-11-07] MEDS: carvediloL 12.5 MG TAB PO SCH (08:00)
[2024-11-07] MEDS ORDERED: ATORVASTATIN 40 MG TAB ONE (08:02)
[2024-11-07] MEDS ORDERED: ASPIRIN EC 81 MG TAB PO ONE (08:02)
[2024-11-07] MEDS ORDERED: TICAGRELOR 90 MG TABLET PO ONE (08:02)
[2024-11-07] MEDS ORDERED: HEPARIN 5000 UNIT/ML 1 ML VIAL ONE ×2 (08:03→11:22)
[2024-11-07] MEDS ORDERED: FAMOTIDINE 20 MG TAB ONE (08:52)
[2024-11-07] MEDS: FAMOTIDINE 20 MG TAB PO SCH (09:00)
[2024-11-07] MEDS: ASPIRIN EC 81 MG TAB PO SCH (09:00)
[2024-11-07] MEDS: HEPARIN 5000 UNIT/ML 1 ML VIAL SQ SCH (09:00)
[2024-11-07] MEDS: ATORVASTATIN 40 MG TAB PO SCH (09:00)
[2024-11-07] MEDS: SACUBITRIL/VALSARTAN 24/26 MG TAB PO SCH (09:00)
[2024-11-07] MEDS: TICAGRELOR 90 MG TABLET PO SCH (09:00)
[2024-11-07] MEDS ORDERED: carvediloL 12.5 MG TAB PO SCH (09:00)
--- NOTE | 2024-11-07 10:03 | P.PN ---
Date of Service: 11/07/24 Subjective: Feeling better this morning Reports last night she was having some discomfort in her chest that she described as burning Family at bedside ROS: 10 point ROS as noted above, otherwise negative Physical exam GEN: Alert, oriented, NAD HEENT: Normal conjunctiva, sclera anicteric CV: Regular rate and rhythm, no edema Pulm: Nonlabored respirations on room air ABD: Soft, nontender, nondistended MSK: No joint tenderness Integumentary: No rashes Neuro: Normal speech, normal affect Vitals reviewed Assessment: NSTEMI-history of CAD with recent stent to LAD Chronic systolic congestive heart failure ESRD on HD MWF Hypertension Hyperlipidemia Gout Plan: NSTEMI-history of CAD with recent stent to LAD Had stent to LAD in September Troponin uptrending Continue aspirin, Brilinta, heparin drip Cardiology consultation placed, continue to monitor on telemetry and trend troponins until peak Denies chest pain at this time No signs of STEMI on EKG Chronic systolic congestive heart failure ESRD on HD MWF Volume status management with HD Nephrology consultation placed Last completed dialysis on Friday Hypertension Hyperlipidemia Gout Continue home medications when verified DVT PPX: Heparin drip Code status:campus monitor 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
[2024-11-07] MEDS ORDERED: HEPARIN/D5W 25,000 UNIT/500 ML BAG IV ONE (11:22)
[2024-11-07] MEDS: HEPARIN 5000 UNIT/ML 1 ML VIAL IV ONE (11:44)
[2024-11-07] MEDS: HEPARIN/D5W 25,000 UNIT/500 ML BAG IV SCH (11:44)
--- NOTE | 2024-11-07 13:26 | P.CNS ---
Date of Consult: 11/07/24 Reason for Consult: ESRD, chronic HTN, vol management Requesting Physician: Bacilio Padilla Chief Complaint: Chest Pain History of Present Illness: Pt is a elderly AA female with past medical history of ESRD on dialysis MWF via Lt AVF for several years, chronic malignant hypertension, chronic diastolic CHF, CAD status post recent PCI/MEE to LAD last mo, recent hospitalizations for shortness of breath, chest pain, other. Pt completed HD on Fri without issues and has been leaving near lowered EDW. Pt developed earlier today some left sided chest pain, lasting minutes, some shortness of breath associated. Sick to her stomach earlier. Now feels better, is not able to elaborate much more. Sig troponin leak noted with upward rise/trend. Pt has been started on heparin gtt, Cardiology consulted. Allergies aspirin [From Percodan] Adverse Reaction (Verified 09/30/24 01:51) hallucination oxycodone [From Percodan] Adverse Reaction (Verified 09/30/24 01:51) hallucination Home Medications: Carvedilol [Coreg] 12.5 mg PO BID #180 tab 07/27/24 Sacubitril/Valsartan [Entresto 24 mg-26 mg Tablet] 1 tab PO BID #90 tab 07/27/24 Albuterol Inhaler [Ventolin Inhaler*] 2 puff IH Q4HP PRN 09/30/24 Famotidine [Pepcid*] 20 mg PO DAILY 09/30/24 Aspirin [Aspirin EC 81 MG] 81 mg PO DAILY #1 bottle 10/06/24 Atorvastatin Calcium 40 mg PO DAILY #90 tab 10/06/24 Ticagrelor [Brilinta*] 90 mg PO BID #180 tab 10/06/24 - Past Medical/Surgical History Diabetic: No -: ESRD (Dr. Dunbar/ Dr. Zarate)/ LF AVF MWF -: HTN -: Diastolic CHF -: Arthritis -: HLD -: Gout -: hysterectomy -: lumpectomy -: cataract surgery Psychosocial/ Personal History: Patient lives at home and is . - Family History Mother Medical History: Hypertension, Kidney disease Father Medical History: Hypertension, Kidney disease - Social History Smoking Status: Unknown if ever smoked Alcohol use: No CD- Drugs: No Caffeine use: Yes Review of Systems General: As per HPI Eyes: Unremarkable ENT: Unremarkable Respiratory: As per HPI Cardiovascular: As per HPI Gastrointestinal: Abdominal Pain Genitourinary: Unremarkable Musculoskeletal: Unremarkable Integumentary: Unremarkable Neurological: Unremarkable Physical Examination Temp Pulse Resp BP Pulse Ox 97.4 F 77 14 140/64 97 11/07/24 08:00 11/07/24 08:00 11/07/24 08:00 11/07/24 08:00 11/07/24 08:00 General: In no apparent distress, Other (Chronially ill) HEENT: Atraumatic, Normocephalic Neck: Supple Respiratory: Clear to auscultation bilaterally, Normal air movement Cardiovascular: No edema, Regular rate/rhythm, Other (cardiac murmur) Gastrointestinal: Soft and benign, Non-distended, No tenderness Musculoskeletal: No swelling, No contractures, Other (Lt forearm AVF) Neurological: Normal speech, Normal tone, Normal affect, Other (Able to transfer with assistance) Laboratory Data (last 24 hrs) 11/07/24 11/07/24 03:02 03:02 WBC 6.00 Hgb 11.1 L Hct 33.0 L Plt Count 166 Sodium 137 Potassium 4.0 BUN 63 H Creatinine 9.29 H Glucose 131 H Conclusions/Impression: 1. End-stage renal disease, on dialysis MWF as an OP, HD performed Fri, no u rgent indication to repeat today. 2. NSTEMI, recurrent, UA s/p LHC with PCI/MEE, complex procedure back in Sep with some septal branch involvement. Upward rising troponins, on heparin gtt. Await Cardiology plan 3. Chronic HTN with heart and kidney disease -monitor BP closely, target < 130/80 4. Chronic diastolic CHF -no overt decompensation 5. Anemia 2nd to CKD -Hb currently > 10 Abbe Zarate MD, BHAVANAN
--- NOTE | 2024-11-07 15:04 | P.CNS ---
Date of Consult: 11/07/24 Chief Complaint: Chest Pain History of Present Illness: Patient with PMH of ESRD on HD, CAD recent PCI LAD, presented with generalized weakness, chest pain, mainly right sided and epigastric, denies any other cardiac symptoms. Allergies aspirin [From Percodan] Adverse Reaction (Verified 09/30/24 01:51) hallucination oxycodone [From Percodan] Adverse Reaction (Verified 09/30/24 01:51) hallucination Home medications list reviewed: Yes Home Medications: RX: Carvedilol [Coreg] 12.5 mg PO BID #180 tab 07/27/24 RX: Sacubitril/Valsartan [Entresto 24 mg-26 mg Tablet] 1 tab PO BID #90 tab 07/27/24 RX: Albuterol Inhaler [Ventolin Inhaler*] 2 puff IH Q4HP PRN 09/30/24 RX: Famotidine [Pepcid*] 20 mg PO DAILY 09/30/24 Aspirin [Aspirin EC 81 MG] 81 mg PO DAILY #1 bottle 10/06/24 RX: Atorvastatin Calcium 40 mg PO DAILY #90 tab 10/06/24 RX: Ticagrelor [Brilinta*] 90 mg PO BID #180 tab 10/06/24 - Past Medical/Surgical History Diabetic: No -: ESRD (Dr. Dunbar/ Dr. Zarate)/ LF AVF MWF -: HTN -: Diastolic CHF -: Arthritis -: HLD -: Gout -: hysterectomy -: lumpectomy -: cataract surgery Psychosocial/ Personal History: Patient lives at home and is . - Family History Mother Medical History: Hypertension, Kidney disease Father Medical History: Hypertension, Kidney disease - Social History Smoking Status: Unknown if ever smoked Alcohol use: No CD- Drugs: No Caffeine use: Yes Review of Systems 10-point ROS is otherwise unremarkable Physical Examination Temp Pulse Resp BP Pulse Ox 97.5 F 75 20 158/67 H 98 11/07/24 13:00 11/07/24 13:00 11/07/24 13:00 11/07/24 13:00 11/07/24 13:00 General: Alert, In no apparent distress HEENT: Atraumatic, PERRLA, Mucous membr. moist/pink, EOMI, Sclerae nonicteric Neck: Supple, 2+ carotid pulse no bruit, No LAD, Without JVD or thyroid abnormality Respiratory: Clear to auscultation bilaterally, Normal air movement Cardiovascular: Regular rate/rhythm, Normal S1 S2 Gastrointestinal: Normal bowel sounds, No tenderness Musculoskeletal: No tenderness Integumentary: No rashes Neurological: Normal gait, Normal speech, Normal tone, Normal affect Lymphatics: No axilla or inguinal lymphadenopathy Laboratory Data (last 24 hrs) 11/07/24 11/07/24 03:02 03:02 WBC 6.00 Hgb 11.1 L Hct 33.0 L Plt Count 166 Sodium 137 Potassium 4.0 BUN 63 H Creatinine 9.29 H Glucose 131 H - Problems (1) NSTEMI (non-ST elevated myocardial infarction) Current Visit: No Status: Acute Plan: Patient had recent PCI LAD, patient is not sure about medications and most likely she has not been complaint with her Brilinta, enzymes are elevated. NPO after midnight for coronary angiogram in am (Groin) ASA 81 mg daily Brilinta 90 mg po BID continue Heparin drip
[2024-11-08 04:03] LABS: Absolute Eosinophils 0.2 K/uL (0-0.5); Absolute Monocytes 0.8 K/uL (0.1-1.3); Absolute Neutrophil 3.4 K/uL (1.8-8.0); Basophils % 0.6 % (0-1.3); Eosinophils % 2.9 % (0-4.4); Hematocrit 33.1 % (36.0-45.0); Hemoglobin 10.9 g/dL (12.0-15.0); Lymphocytes % 31.9 % (15.3-44.8); MCH 30.6 pg (27.0-35.0); MCHC 32.9 g/dL (32.0-36.0); MPV 8.8 fL (7.6-11.3); Monocytes % 12.1 % (3.3-12.3); Neutrophils % 52.5 % (41.7-73.7); Nucleated Red Blood Cells % 0.1 % (0-0); Platelets 153 thou/uL (152-406); RBC Red Blood Cell Count 3.56 M/uL (3.86-4.86)
[2024-11-08 04:13] LABS: Red Cell Distribution Width 21.9 % (12.1-15.2)
[2024-11-08 04:28] LABS: Albumin 2.7 g/dL (3.4-5.0); Albumin/Globulin Ratio 0.8 (1.1-1.8); Anion Gap 18.3 mEq/L (5.0-15.0); Bilirubin Total 0.5 mg/dL (0.2-1.0); Globulin 3.4 g/dL (2.3-3.5); Potassium 4.3 mEq/L (3.5-5.1); Protein, Total 6.1 g/dL (6.4-8.2)
[2024-11-08 04:29] LABS: Troponin High Sensitivity 361.2 pg/mL (<58.9)
--- NOTE | 2024-11-08 10:38 | P.PN ---
Date of Service: 11/08/24 Subjective: Feeling better this morning Plan for coronary angiogram and HD today ROS: 10 point ROS as noted above, otherwise negative Physical exam GEN: Alert, oriented, NAD HEENT: Normal conjunctiva, sclera anicteric CV: Regular rate and rhythm, no edema Pulm: Nonlabored respirations on room air ABD: Soft, nontender, nondistended MSK: No joint tenderness Integumentary: No rashes Neuro: Normal speech, normal affect Vitals reviewed Assessment: NSTEMI-history of CAD with recent stent to LAD Chronic systolic congestive heart failure ESRD on HD MWF Hypertension Hyperlipidemia Gout Plan: NSTEMI-history of CAD with recent stent to LAD Had stent to LAD in September Troponin peaked Continue aspirin, Brilinta, heparin drip Cardiology consultation placed, continue to monitor on telemetry Denies chest pain at this time No signs of STEMI on EKG Plan for LHC today followed by HD Chronic systolic congestive heart failure ESRD on HD MWF Volume status management with HD Nephrology consultation placed Last completed dialysis on Friday Hypertension Hyperlipidemia Gout Continue home medications when verified DVT PPX: Heparin drip 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
[2024-11-08] MEDS ORDERED: HEPA 1000U/500MLS 2,000 UNIT/1,000 ML BAG IV ONE (12:00)
[2024-11-08] MEDS ORDERED: ATROPINE SULF 1 MG/10 ML SYR IV ONE (12:01)
[2024-11-08] MEDS ORDERED: MIDAZOLAM HCL 2 MG/2 ML INJ ONE (12:01)
[2024-11-08] MEDS ORDERED: TICAGRELOR 90 MG TABLET PO ONE (12:01)
[2024-11-08] MEDS ORDERED: CLOPIDOGREL 75 MG TABLET ONE (12:01)
[2024-11-08] MEDS ORDERED: HEPARIN 5000 UNIT/ML 1 ML VIAL ONE (12:01)
[2024-11-08] MEDS ORDERED: LIDOCAINE 1% 20 ML MDV ONE (12:01)
[2024-11-08] MEDS ORDERED: HEPARIN 10,000 UNIT/10 ML VIAL IV ONE (12:01)
[2024-11-08] MEDS ORDERED: FENTANYL CITR 100 MCG/2 ML ONE (12:02)
[2024-11-08] MEDS ORDERED: FLUMAZENIL 0.1 MG/ML (5 mL VIAL) IV ONE (12:02)
[2024-11-08] MEDS ORDERED: NALOXONE 0.4 MG/ML VIAL ONE (12:02)
[2024-11-08] MEDS ORDERED: Phenylephrine HCl 10 MG/ML 1 ML VIAL ONE (12:02)
[2024-11-08] MEDS ORDERED: ASPIRIN 325 MG TAB ONE (12:02)
[2024-11-08] MEDS: NA CHLORIDE 0.9% 500 ML ONE (12:50)
--- NOTE | 2024-11-08 12:56 | P.PN ---
Subjective Date of Service: 11/08/24 Chief Complaint: Chest Pain Subjective: No new changes, No C/O voiced, Tolerating diet, Ambulating, Improving Review of Systems 10-point ROS is otherwise unremarkable Physical Examination - Vital Signs Temperature: 97.9 F Blood Pressure: 177/79 Pulse: 84 Respirations: 18 Pulse Ox (%): 92 - Physical Exam General: Alert, In no apparent distress HEENT: Atraumatic, PERRLA, EOMI Neck: Supple, JVD not distended Respiratory: Clear to auscultation bilaterally, Normal air movement Cardiovascular: Regular rate/rhythm, Normal S1 S2 Gastrointestinal: Normal bowel sounds, No tenderness Musculoskeletal: No tenderness Integumentary: No rashes Neurological: Normal speech, Normal tone, Normal affect Lymphatics: No axilla or inguinal lymphadenopathy - Studies Medications List Reviewed: Yes Assessment And Plan - Current Problems (Diagnosis) (1) NSTEMI (non-ST elevated myocardial infarction) Current Visit: No Status: Acute Plan: Patient had recent PCI LAD, patient is not sure about medications and most likely she has not been complaint with her Brilinta, enzymes are elevated. Repeated coronary angiogram was done and shows patent LAD stent with mild haziness which might represent Mild ISR vs small thrombus ASA 81 mg daily switch Brilinta to Plavix due to patient compliance issues. continue Heparin drip for another 48 hours
[2024-11-08] MEDS: ACETAMINOPHEN 325 MG TABLET PO PRN (18:34)
[2024-11-08] MEDS ORDERED: NA CHLORIDE 0.9% 1,000 ML IV PRN (21:39)
[2024-11-08] MEDS ORDERED: MANNITOL 25% 12.5 GM/50 ML VIAL IV PRN (21:39)
[2024-11-08] MEDS ORDERED: EPOETIN ALFA 10,000 UNIT/ML VIAL IV SCH (21:45)
--- NOTE | 2024-11-08 21:50 | P.PN ---
Date of Service: 11/08/24 Vital Signs Temp Pulse Resp BP Pulse Ox 98.1 F 80 16 179/77 H 94 11/08/24 20:00 11/08/24 20:00 11/08/24 20:00 11/08/24 20:00 11/08/24 20:00 Medications Acetaminophen (Acetaminophen 325 Mg Tablet) 650 mg PO Q4HP PRN PRN Reason: Pain scale 2-4 (Mild) Last Admin: 11/08/24 18:34 Dose: 650 mg Albuterol Sulfate (Albuterol 2.5 Mg/3 Ml Neb Irene) 2.5 mg NEB Q4HP PRN PRN Reason: SHORTNESS OF BREATH Aspirin (Aspirin Ec 81 Mg Tab) 81 mg PO DAILY [facility] Last Admin: 11/08/24 09:16 Dose: 81 mg Atorvastatin Calcium (Atorvastatin 40 Mg Tab) 40 mg PO DAILY [facility] Last Admin: 11/08/24 09:00 Dose: Not Given Carvedilol (Carvedilol 12.5 Mg Tab) 12.5 mg PO BIDWM [facility] Last Admin: 11/08/24 17:21 Dose: 12.5 mg Clopidogrel Bisulfate (Clopidogrel 75 Mg Tablet) 75 mg PO DAILY [facility] Epoetin Gilles (Epoetin Gilles 10,000 Unit/Ml Vial) 10,000 unit IV EVERY HD SELMA Famotidine (Famotidine 20 Mg Tab) 20 mg PO DAILY [facility]; Protocol Last Admin: 11/08/24 09:00 Dose: Not Given Heparin Sodium (Porcine) (Heparin 1,000 Unit/Ml Vial) 0 unit IV PRN PRN PRN Reason: Heparin Re-Bolus Per Protocol Last Admin: 11/08/24 04:26 Dose: 3,000 unit Heparin Sodium (Porcine) (Heparin 1,000 Unit/Ml Vial) 6,000 unit IJ EVERY HD PRN PRN Reason: AFTER EACH Heparin Sodium/Dextrose (Heparin Drip 25,000 Units/5oo Ml Premix) 25,000 unit in 500 mls @ 0 mls/hr IV UD [facility]; Protocol Last Admin: 11/07/24 11:44 Dose: 500 mls Sodium Chloride (Ns 1000 Ml Ivbag) 1,000 mls @ 0 mls/hr IV .Q0M PRN PRN Reason: Priming and BP support at HD Stop: 11/08/24 23:59 Albumin Human (Albumin 25%) 50 mls @ 100 mls/hr IV EVERY HD SELMA Mannitol (Mannitol 25% 12.5 Gm/50 Ml Vial) 12.5 gm IV EVERY HD PRN PRN Reason: Titrate to SBP (MUST DEFINE) Ondansetron HCl (Ondansetron 4 Mg/2 Ml Vial) 4 mg IV Q6HP PRN PRN Reason: NAUSEA / VOMITING Assessment/ Plan: Nephrology No dyspnea No chest pain No acute events overnight. Cardiac cath earlier today. Vitals, medications, blood work and imaging reviewed in the chart NAD. MMM. NCAT. Normal Respiratory Effort. S1S2. ND Abd. No C/C/E. No rash. AAO. Normal speech. ESRD on HD -Next HD tomorrow HTN with CKD/ CHF -Continue Coreg -Continue Entresto Diastolic CHF, A/C -Low sodium diet -UF with HD Hypoalbuminemia -Consider Nepro Anemia in CKD -Continue Procrit Hospitalist note reviewed
[2024-11-08] MEDS ORDERED: ALBUMIN HUMAN 25% 50 ML IV SCH (22:00)
[2024-11-09 03:43] LABS: Hematocrit 34.7 % (36.0-45.0); Hemoglobin 11.4 g/dL (12.0-15.0); MCH 30.3 pg (27.0-35.0); MCHC 32.8 g/dL (32.0-36.0); MCV 92.3 fL (80-100); MPV 8.9 fL (7.6-11.3); Platelets 167 thou/uL (152-406); RBC Red Blood Cell Count 3.76 M/uL (3.86-4.86); Red Cell Distribution Width 21.8 % (12.1-15.2)
[2024-11-09] MEDS: ONDANSETRON 4 MG/2 ML VIAL IV PRN (03:43)
[2024-11-09 04:00] LABS: Anion Gap 19.7 mEq/L (5.0-15.0); Potassium 4.7 mEq/L (3.5-5.1)
--- NOTE | 2024-11-09 08:37 | RAD REPORT ---
Exam:Abdomen Single View Clinical history: Abdominal pain FINDINGS: The bowel gas pattern is unremarkable Calcifications within the pelvis probably phleboliths.
[2024-11-09] MEDS: DOCUSATE NA 100 MG CAP PO SCH (08:58)
[2024-11-09] MEDS: CLOPIDOGREL 75 MG TABLET PO SCH (08:58)
[2024-11-09] MEDS: LACTOBACILLUS/ACIDOPHILUS TAB PO SCH (09:01)
--- NOTE | 2024-11-09 15:57 | P.PN ---
Date of Service: 11/09/24 Subjective: Awake, feeling well, going for dialysis this morning Per Cardiology, will need to complete 48 hours of the heparin gtt Will continue plavix ROS: 10 point ROS as noted above, otherwise negative Physical exam GEN: Alert and oriented x3, NAD HEENT: Normal conjunctiva, sclera anicteric CV: RRR, no edema Pulm: Clear BBS, nonlabored breathing, on room air ABD: Soft and nontender MSK: No joint tenderness Neuro: Normal speech, normal affect Vitals reviewed Assessment: NSTEMI-history of CAD with recent stent to LAD Chronic systolic congestive heart failure ESRD on HD MWF Hypertension Hyperlipidemia Gout Plan: NSTEMI-history of CAD with recent stent to LAD Had stent to LAD in September Troponin peaked Continue aspirin, heparin drip, and plavix Stopped brilinta per cardiology Cardiology consultation placed, continue to monitor on telemetry Denies chest pain at this time No signs of STEMI on EKG Plan for [facility] 11/08 Chronic systolic congestive heart failure ESRD on HD MWF Volume status management with HD Nephrology consultation placed Last completed dialysis 11/09- 2500 ml Hypertension Hyperlipidemia Gout Continue home medications when verified Hospital Interval Course 11/09/24 - will complete 48 hours of the heparin gtt, re-activated 11/08 at 1600 -Continue plavix -cardiology following - likely dc tomorrow -Tolerating treatment DVT PPX: Heparin drip Code status:full
[2024-11-09] MEDS ORDERED: ALBUTEROL 2.5 MG/3 ML NEB SOL NEB PRN (16:10)
[2024-11-09] MEDS: carvediloL 25 MG TAB PO SCH (18:01)
--- NOTE | 2024-11-09 20:49 | P.PN ---
Date of Service: 11/09/24 Vital Signs Temp Pulse Resp BP Pulse Ox 98.2 F 89 22 H 150/66 H 94 11/09/24 16:00 11/09/24 16:00 11/09/24 16:00 11/09/24 16:00 11/09/24 16:00 Medications Acetaminophen (Acetaminophen 325 Mg Tablet) 650 mg PO Q4HP PRN PRN Reason: Pain scale 2-4 (Mild) Last Admin: 11/09/24 15:13 Dose: 650 mg Albuterol Sulfate (Albuterol 2.5 Mg/3 Ml Neb Irene) 2.5 mg NEB [id number] PRN PRN Reason: SHORTNESS OF BREATH Aspirin (Aspirin Ec 81 Mg Tab) 81 mg PO DAILY [facility] Last Admin: 11/09/24 08:58 Dose: 81 mg Atorvastatin Calcium (Atorvastatin 40 Mg Tab) 40 mg PO DAILY [facility] Last Admin: 11/09/24 09:01 Dose: 40 mg Carvedilol (Carvedilol 25 Mg Tab) 25 mg PO BIDWM [facility] Last Admin: 11/09/24 18:01 Dose: 25 mg Clopidogrel Bisulfate (Clopidogrel 75 Mg Tablet) 75 mg PO DAILY [facility] Last Admin: 11/09/24 08:58 Dose: 75 mg Docusate Sodium (Docusate Na 100 Mg Cap) 100 mg PO BID [facility] Last Admin: 11/09/24 08:58 Dose: 100 mg Epoetin Gilles (1) 10,000 unit IV EVERY HD [facility] Last Admin: 11/09/24 12:02 Dose: 10,000 unit Famotidine (Famotidine 20 Mg Tab) 20 mg PO DAILY [facility]; Protocol Last Admin: 11/09/24 08:58 Dose: 20 mg Heparin Sodium (Porcine) (Heparin 1,000 Unit/Ml Vial) 0 unit IV PRN PRN PRN Reason: Heparin Re-Bolus Per Protocol Last Admin: 11/08/24 22:09 Dose: 3,000 unit Heparin Sodium (Porcine) (Heparin 1,000 Unit/Ml Vial) 6,000 unit IV EVERY HD PRN PRN Reason: AFTER EACH Heparin Sodium/Dextrose (Heparin Drip 25,000 Units/5oo Ml Premix) 25,000 unit in 500 mls @ 0 mls/hr IV [facility]; Protocol Last Admin: 11/09/24 20:36 Dose: 500 mls Albumin Human (Albumin 25%) 50 mls @ 100 mls/hr IV EVERY HD SELMA Lactobacillus Acidoph/Bulgaricus (Lactobacillus/Acidophilus Tab) 1 tab PO BIDPC SELMA Last Admin: 11/09/24 18:01 Dose: 1 tab Mannitol (Mannitol 25% 12.5 Gm/50 Ml Vial) 12.5 gm IV EVERY HD PRN PRN Reason: Titrate to SBP (MUST DEFINE) Ondansetron HCl (Ondansetron 4 Mg/2 Ml Vial) 4 mg IV Q6HP PRN PRN Reason: NAUSEA / VOMITING Last Admin: 11/09/24 03:43 Dose: 4 mg Assessment/ Plan: Nephrology No dyspnea No chest pain No acute events overnight. Severe persistent abdominal pain this morning with nausea Vitals, medications, blood work and imaging reviewed in the chart NAD. MMM. NCAT. Normal Respiratory Effort. S1S2. Tender Abd. No C/C/E. No rash. AAO. Normal speech. ESRD on HD -Acute HD today HTN with CKD/ CHF -Continue Coreg -Continue Entresto Diastolic CHF, A/C -Low sodium diet -UF with HD Hypoalbuminemia -Consider Nepro Anemia in CKD -Continue Procrit Abd Pain -Abd xray ordered Hospitalist note reviewed
--- NOTE | 2024-11-09 21:08 | OP ---
Date of Procedure: 11/08/2024 Surgeon: Syed Hurtado Procedure Performed: Selective coronary angiogram. Indication For Procedure: [id number] LA. Complications: None. Estimated Blood Loss: Less than 50 cc. Access: Right common femoral artery closed by Mynx. Sedation Time: 20 minutes with 1 of Versed and 25 of fentanyl. Description Of Procedure: After risks, and benefits, and alternatives were explained to patient, pat ient agreed to proceed with procedure and signed informed consent. The patient was brought back to [facility], prepped and draped in sterile fashion. Time-out was performed. Sedation was administer ed. Next, right common femoral artery access was obtained using ultrasound-guided micropuncture tech [employer]. JL4 catheter was advanced for selective angiogram of the left system that was later exchanged with a JR4 catheter for selective angiogram of the right coronary system. At the end of procedure, catheter was removed over a J-wire. Sheath was removed. Mynx was applied. Hemostasis was achieved. The patient was moved back to Recovery in stable condition. Findings: 1. Left main normal. 2. LAD; ostial to proximal 30% disease, then mid stent is patent with mid stent portion with a focal hazy 30% to 40% disease that might present most likely mild in-stent restenosis. 3. Left circ; mild luminal irregularities. 4. RCA; mild luminal irregularities. Assessment And Plan: Mild ostial LAD disease with mild mid LAD stent ISR. Plan is to: 1. Continue aspirin 81 mg daily for life. 2. Switch Brilinta due to noncompliance to Plavix 75 mg daily. HOLLIS/MODL Voice ID: [id number] Report ID: [id number]
[2024-11-10 05:14] VITALS: O2SAT 96
[2024-11-10 06:31] LABS: Hematocrit 33.1 % (36.0-45.0); Hemoglobin 11.1 g/dL (12.0-15.0); MCH 30.6 pg (27.0-35.0); MCHC 33.6 g/dL (32.0-36.0); MCV 91.1 fL (80-100); MPV 9.4 fL (7.6-11.3); Platelets 141 thou/uL (152-406); RBC Red Blood Cell Count 3.63 M/uL (3.86-4.86); Red Cell Distribution Width 21.4 % (12.1-15.2)
[2024-11-10 07:01] LABS: Anion Gap 14.1 mEq/L (5.0-15.0); Potassium 4.1 mEq/L (3.5-5.1)
--- NOTE | 2024-11-10 11:42 | P.PN ---
Subjective Date of Service: 11/10/24 Chief Complaint: Chest Pain Subjective: No new changes, No C/O voiced, Tolerating diet, Ambulating, Improving Review of Systems 10-point ROS is otherwise unremarkable Physical Examination - Vital Signs Temperature: 98.6 F Blood Pressure: 138/62 Pulse: 75 Respirations: 18 Pulse Ox (%): 99 - Physical Exam General: Alert, In no apparent distress HEENT: Atraumatic, PERRLA, EOMI Neck: Supple, JVD not distended Respiratory: Clear to auscultation bilaterally, Normal air movement Cardiovascular: Regular rate/rhythm, Normal S1 S2 Gastrointestinal: Normal bowel sounds, No tenderness Musculoskeletal: No tenderness Integumentary: No rashes Neurological: Normal speech, Normal tone, Normal affect Lymphatics: No axilla or inguinal lymphadenopathy - Studies Medications List Reviewed: Yes Assessment And Plan - Current Problems (Diagnosis) (1) NSTEMI (non-ST elevated myocardial infarction) Current Visit: No Status: Acute Plan: Patient had recent PCI LAD, patient is not sure about medications and most likely she has not been complaint with her Brilinta, enzymes are elevated. Repeated coronary angiogram was done and shows patent LAD stent with mild haziness which might represent Mild ISR vs small thrombus ASA 81 mg daily switch Brilinta to Plavix due to patient compliance issues. can stop heparin drip cardiology will sign off, please call with any questions.
--- NOTE | 2024-11-10 12:43 | EKG ---
Test Date: 2024-11-07 Test Time: 02:46:29 Housing Installer: MIKEY MEASUREMENT RESULTS: Intervals: Rate: 77 TN: 244 QRSD: 70 QT: 392 QTc: 443 Jadwin: P: 66 TN: 244 QRS: 8 T: 53 INTERPRETIVE STATEMENTS: Sinus rhythm with 1st degree AV block Otherwise normal ECG Compared to ECG 10/02/2024 15:58:37 First degree AV block now present T-wave abnormality no longer present Electronically Signed On 11-10-24 12:30:44 CDT by Syed Hurtado
[2024-11-10 12:45] VITALS: BP 133/60; TEMP 97.9
--- NOTE | 2024-11-10 13:11 | P.DS ---
Admission Date: 11/07/24 Discharge Date: 11/10/24 Disposition: ROUTINE DISCHARGE Discharge Condition: GOOD Reason for Admission: Chest Pain Brief History of Present Illness: Diagnosis NSTEMI-history of CAD with recent stent to LAD Chronic systolic congestive heart failure ESRD on HD MWF Hypertension Hyperlipidemia Gout HPI 11/07/2024 79 yrs old Female with past medical history of ESRD on dialysis, hypertension, diabetes, CAD status post PCI, CHF, recently brought to ER with chest pain. Pain is located in the left side of the chest with no radiation. Pressure-like feeling. Nonexertional. Woke her up from sleep. Denies any diaphoresis. Denies any shortness of breath. Pain mostly felt like acid irritation. Denies any nausea or vomiting. No fever or chills. No sick contacts. Patient was assessed in the ER and was admitted for further management of NSTEMI Hospital Course: Kevin has been admitted and treated for the following diagnosis NSTEMI-history of CAD with recent stent to LAD Had stent to LAD in September Troponin peaked Continue aspirin, heparin drip, and plavix Stopped brilinta per cardiology Cardiology consultation placed, continue to monitor on telemetry Denies chest pain at this time No signs of STEMI on EKG Plan for [facility] 11/08 Chronic systolic congestive heart failure ESRD on HD MWF Volume status management with HD Last completed dialysis 11/09- 2500 ml Nephrology follow up outpatient Hypertension Hyperlipidemia Gout Continued home medications as appropriate On 11/10/2024, Kevin is seen on morning rounds in good condition, conversing well, and hemodynamically stable. Cardiology and nephrology have evaluated and cleared for discharge after completion of the heparin drip and dialysis. Plavix has been prescribed Physical exam GEN: AAO x3, NAD HEENT: Normal conjunctiva, sclera anicteric CV: NSR, no edema Pulm: Clear BBS, symmetrical air movement, on RA ABD: Soft and nontender, soft on palpation MSK: No joint tenderness Neuro: Normal speech, normal affect Vital Signs/Physical Exam: Temp Pulse Resp BP Pulse Ox 97.9 F 74 23 H 133/60 94 11/10/24 12:00 11/10/24 12:00 11/10/24 12:00 11/10/24 12:00 11/10/24 12:00 Laboratory Data at Discharge: WBC 7.00 thou/uL (4.3-10.9) 11/10/24 06:11 Hgb 11.1 g/dL (12.0-15.0) L 11/10/24 06:11 Hct 33.1 % (36.0-45.0) L 11/10/24 06:11 Plt Count 141 thou/uL (152-406) L 11/10/24 06:11 APTT 41.1 SECONDS (27.2-37.4) H 11/10/24 06:11 Sodium 135 mEq/L (136-145) L 11/10/24 06:11 Potassium 4.1 mEq/L (3.5-5.1) 11/10/24 06:11 BUN 45 mg/dL (7-18) H 11/10/24 06:11 Creatinine 9.86 mg/dL (0.55-1.02) H 11/10/24 06:11 Glucose 114 mg/dL (74-106) H 11/10/24 06:11 Total Bilirubin 0.5 mg/dL (0.2-1.0) 11/08/24 03:40 AST 19 U/L (15-37) 11/08/24 03:40 ALT 28 U/L (13-56) 11/08/24 03:40 Alkaline Phosphatase 66 U/L (45-117) 11/08/24 03:40 Home Medications: Carvedilol [Coreg] 12.5 mg PO BID #180 tab 07/27/24 Sacubitril/Valsartan [Entresto 24 mg-26 mg Tablet] 1 tab PO BID #90 tab 07/27/24 Albuterol Inhaler [Ventolin Inhaler*] 2 puff IH Q4HP PRN 09/30/24 Famotidine [Pepcid*] 20 mg PO DAILY 09/30/24 Aspirin [Aspirin EC 81 MG] 81 mg PO DAILY #1 bottle 10/06/24 Atorvastatin Calcium 40 mg PO DAILY #90 tab 10/06/24 Clopidogrel Bisulfate [Plavix*] 75 mg PO DAILY 30 Days #30 tab 11/10/24 New Medications: Clopidogrel Bisulfate [Plavix*] 75 mg PO DAILY 30 Days #30 tab Physician Discharge Instructions: 1. Please call and schedule a follow-up appointment with your PCP in 3-5 days - Please follow-up with your PCP for medication refills/adjustments 2. Please call and schedule a follow-up appointment with Dr. Hurtado in one week -Changed Brilinta to Plavix 3. Continue heart healthy diet 4. activity restrictions fall precaution 5. Return to the ED if symptoms worsen New medications Plavix 75 mg p.o. daily x 30 days Stop medications Brilinta changed for Plavix Followup: Syed Hurtado MD [ACTIVE - CAN ADMIT] - 1 Week Ariel Morfin DO [Primary Care Provider] - 1-2 Weeks
--- NOTE | 2024-11-10 21:26 | P.PN ---
Date of Service: 11/10/24 Vital Signs Temp Pulse Resp BP Pulse Ox 97.9 F 74 23 H 133/60 94 11/10/24 12:00 11/10/24 12:00 11/10/24 12:00 11/10/24 12:00 11/10/24 12:00 Assessment/ Plan: Nephrology No dyspnea No chest pain No acute events overnight. Feeling better today Vitals, medications, blood work and imaging reviewed in the chart NAD. MMM. NCAT. Normal Respiratory Effort. S1S2. NT Abd. No C/C/E. No rash. AAO. Normal speech. ESRD on HD -Acute HD today HTN with CKD/ CHF -Continue Coreg -Continue Entresto Systolic CHF, A/C -Low sodium diet -UF with HD Hypoalbuminemia -Consider Nepro Anemia in CKD -Continue Procrit Abd Pain -Resolved Hospitalist note reviewed
== END 2024-11-10 17:05 | disposition home or self-care (01) | DRG 280 ==
LOC: ER 02:21 → ERHOLD 05:13 → 2ND 12:37
PROVIDERS: ADMIT Family Medicine; ATTEND Internal Medicine
PROC: 5A1D70Z Performance of Urinary Filtration, Intermittent, Less than 6 Hours Per Day (ICD-10-PCS; 2024-11-07)
PROC: 4A023N7 Measurement of Cardiac Sampling and Pressure, Left Heart, Percutaneous Approach (ICD-10-PCS; principal; 2024-11-08)
PROC: B2111ZZ Fluoroscopy of Multiple Coronary Arteries using Low Osmolar Contrast (ICD-10-PCS; 2024-11-08)
DX: I13.2 Hypertensive heart and chronic kidney disease with heart failure and with stage 5 chronic kidney disease, or end stage renal disease (principal); I50.23 Acute on chronic systolic (congestive) heart failure; I21.4 Non-ST elevation (NSTEMI) myocardial infarction; N18.6 End stage renal disease; T82.855A Stenosis of coronary artery stent, initial encounter; E11.22 Type 2 diabetes mellitus with diabetic chronic kidney disease; M10.9 Gout, unspecified; D63.1 Anemia in chronic kidney disease; E78.5 Hyperlipidemia, unspecified; K21.9 Gastro-esophageal reflux disease without esophagitis; E88.09 Other disorders of plasma-protein metabolism, not elsewhere classified; I25.10 Atherosclerotic heart disease of native coronary artery without angina pectoris; Z99.2 Dependence on renal dialysis; Z88.6 Allergy status to analgesic agent; Z88.5 Allergy status to narcotic agent; Z95.1 Presence of aortocoronary bypass graft; Z79.82 Long term (current) use of aspirin; Z79.02 Long term (current) use of antithrombotics/antiplatelets; Z79.899 Other long term (current) drug therapy; Z91.158 Patient's noncompliance with renal dialysis for other reason; Z90.710 Acquired absence of both cervix and uterus
CPT/HCPCS: 36415; 71045; 74018; 76937; 80048; 80053; 82947; 84484; 85025; 85027; 85730; 90935; 93005; 93454; 96374; 97161; 99152; 99285; C1760; C1893; J0461; J1644; J2003; J2250; J2310; J2371; J2405; J3010; J7040; Q4081; Q9966

== ENCOUNTER 2024-12-26 04:19 | Inpatient (IN) | payer OTHER ==
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
[2024-12-26] MEDS ORDERED: ONDANSETRON 4 MG/2 ML VIAL ONE (04:39)
[2024-12-26] MEDS ORDERED: ASPIRIN 325 MG TAB ONE (04:39)
[2024-12-26] MEDS ORDERED: NITROGLYCERIN 0.4 MG/TAB SL ONE (04:40)
[2024-12-26 04:47] LABS: Absolute Basophils 0.1 K/uL (0-0.5); Absolute Eosinophils 0.2 K/uL (0-0.5); Absolute Monocytes 0.9 K/uL (0.1-1.3); Absolute Neutrophil 5.6 K/uL (1.8-8.0); Basophils % 0.7 % (0-1.3); Eosinophils % 2.4 % (0-4.4); Hematocrit 35.9 % (36.0-45.0); Lymphocytes % 30.2 % (15.3-44.8); MCH 30.3 pg (27.0-35.0); MCHC 33.5 g/dL (32.0-36.0); MCV 90.3 fL (80-100); MPV 9.2 fL (7.6-11.3); Monocytes % 9.4 % (3.3-12.3); Neutrophils % 57.3 % (41.7-73.7); Nucleated Red Blood Cells % 0.1 % (0-0); Platelets 188 thou/uL (152-406); RBC Red Blood Cell Count 3.97 M/uL (3.86-4.86); Red Cell Distribution Width 18.7 % (12.1-15.2)
--- NOTE | 2024-12-26 05:06 | RAD REPORT ---
XR CHEST 1 VIEW CLINICAL INDICATION: Cough COMPARISON: None FINDINGS: SUPPORT DEVICES: None LUNGS/PLEURAL SPACES: Extensive patchy interstitial and airspace opacities in both lungs, more so on right, could represent pulmonary edema and/or multifocal pneumonia. Probable small bilateral pleural effusions. No pneumothorax. HEART/MEDIASTINUM: Heart is normal in size. Atherosclerotic calcification at aortic arch. BONES/UPPER ABDOMEN/SOFT TISSUES: No acute findings. IMPRESSION: Extensive patchy interstitial and airspace opacities in both lungs, more so on right, could represent pulmonary edema and/or multifocal pneumonia. Probable small bilateral pleural effusions. Electronically signed by: Umu Medina MD 12/26/2024 04:45 AM CDT RP Due to temporary technical issues with the PACS/[employer] reporting system, reports are being maisha d by the in-house radiologist without review as a courtesy to ensure prompt reporting the interpreting radiologist is fully responsible for the content of the report. Transcribed Date/Time: 12/26/2024 5:05 AM
[2024-12-26 05:22] LABS: Albumin 3.6 g/dL (3.4-5.0); Albumin/Globulin Ratio 0.9 (1.1-1.8); Anion Gap 20.4 mEq/L (5.0-15.0); Bilirubin Direct 0.2 mg/dL (0-0.2); Bilirubin Indirect, Calculated 0.3 mg/dL (0.2-0.8); Bilirubin Total 0.5 mg/dL (0.2-1.0); Globulin 4.2 g/dL (2.3-3.5); Potassium 4.4 mEq/L (3.5-5.1); Protein, Total 7.8 g/dL (6.4-8.2); Troponin High Sensitivity 55.6 pg/mL (<58.9)
[2024-12-26] MEDS ORDERED: IPRATROPIUM BROM 0.5MG/2.5ML ONE (05:39)
[2024-12-26] MEDS ORDERED: ALBUTEROL 2.5 MG/3 ML NEB SOL ONE (05:39)
[2024-12-26] MEDS ORDERED: Levofloxacin 750mg IV 750 MG/150 ML BAG IV ONE (06:20)
--- NOTE | 2024-12-26 06:29 | ER ---
Nurse's Notes [facility] Name: Kevin Chou Age: 79 yrs Sex: Female : 1945 Arrival Date: 12/26/2024 Time: 04:19 Bed 7 Private MD: Ariel Morfin Diagnosis: Volume overload;Multifocal pneumonia;Sepsis Presentation: 12/26 04:37 Chief complaint: Patient states: COUGH, SOB, CHEST PAIN THAT STARTED TONIGHT. PT STATES br2 SHE WENT TO DIALYSIS YESTERDAY. Coronavirus screen: Client denies travel out of the [place] in the last 14 days. Ebola Screen: Patient denies exposure to infectious person. Initial Sepsis Screen: Does the patient meet any 2 criteria? HR > 90 bpm. Does the patient have a suspected source of infection? No. Patient's initial sepsis screen is negative. Risk Assessment: Do you want to hurt yourself or someone else? Patient reports no desire to harm self or others. Onset of symptoms is unknown. 04:37 Method Of Arrival: Wheelchair br2 04:37 Acuity: GRETA 3 br2 Triage Assessment: 04:39 General: Appears uncomfortable, Behavior is anxious. Pain: Complains of pain in xiphoid br2 area and mid-sternal area Pain currently is 10 out of 10 on a pain scale. Historical: - Allergies: 04:39 Aspirin; br2 04:39 Oxycodone HCl; br2 04:39 Percodan; br2 - PMHx: 04:39 diabetes mellitus; DIALYSIS MWF; Hypertension; kidney disease; br2 - PSHx: 04:39 Left arm fistula; br2 - Immunization history:: Adult Immunizations up to date. - Infectious Disease History:: Denies. - Social history:: Smoking status: Patient denies any tobacco usage or history of. Patient/guardian denies using alcohol, street drugs. - Family history:: not pertinent. Screenin:30 [facility] ED Fall Risk Assessment (Adult) History of falling in the last 3 months, ha1 including since admission No falls in past 3 months (0 pts) Confusion or Disorientation No (0 pts) Intoxicated or Sedated No (0 pts) Impaired Gait Yes (1 pt) Mobility Assist Device Used Yes (1 pt) Altered Elimination No (0 pt) Score/Fall Risk Level 3 or more points = High Risk Oriented to surroundings, Maintained a safe environment, Educated pt \T\ family on fall prevention, incl call for assistance when getting out of bed, Hourly rounding (assess needs \T\ fall precautionary measures) done. Abuse screen: Denies threats or abuse. Denies injuries from another. Nutritional screening: No deficits noted. Tuberculosis screening: No symptoms or risk factors identified. Assessment: 04:30 General: Appears uncomfortable, Behavior is cooperative, anxious. Pain: Complains of ha1 pain in chest Pain radiates to mid-sternal area Pain currently is 8 out of 10 on a pain scale. Quality of pain is described as pressure, Pain began 4 hours ago. Neuro: Level of Consciousness is awake, alert, obeys commands, Oriented to person, place, time, situation. Cardiovascular: Reports chest pain, shortness of breath, Patient's skin is warm and dry. Respiratory: Reports shortness of breath Airway is patent Respiratory effort is even, unlabored, Respiratory pattern is tachypnea. GI: No signs and/or symptoms were reported involving the gastrointestinal system. Abdomen is round non-distended. : No signs and/or symptoms were reported regarding the genitourinary system. Musculoskeletal: Circulation, motion, and sensation intact. 04:56 Reassessment: Patient and/or family updated on plan of care and expected duration. Pain ha1 level reassessed. Patient is alert, oriented x 3, equal unlabored respirations, skin warm/dry/pink. Patient states feeling better. Patient states symptoms have improved. 05:59 Reassessment: Patient appears in no apparent distress at this time. Patient and/or vc1 family updated on plan of care and expected duration. Pain level reassessed. Patient states symptoms have improved. 06:29 Reassessment: Patient and/or family updated on plan of care and expected duration. Pain ha1 level reassessed. Patient is alert, oriented x 3, equal unlabored respirations, skin warm/dry/pink. PAIN 2/10 Patient states feeling better. Patient states symptoms have improved. 08:36 Reassessment: Faxed report at this time. Spoke with ANYA Khan and updated patient and ss her son on wait time to go to room 409. Vital Signs: 04:37 BP 184 / 91; Pulse 102; Resp 26; Pulse Ox 88% on R/A; Weight 61.69 kg; Height 4 ft. 11 br2 in. ; 04:56 BP 175 / 85; Pulse 101; Resp 22 S; Pulse Ox 98% on 2 lpm NC; ha1 05:59 BP 161 / 71; Pulse 84; Resp 22; Pulse Ox 100% ; vc1 06:29 BP 169 / 74; Pulse 83; Resp 19 S; Pulse Ox 99% on 3 lpm NC; ha1 07:36 BP 161 / 82; Pulse 83; Resp 16; Pulse Ox 100% on R/A; ss 08:29 BP 153 / 70; Pulse 82; Resp 19; Temp 98.4; Pulse Ox 100% on 2 lpm NC; Pain 0/10; ss 04:37 Body Mass Index 27.47 (61.69 kg, 149.86 cm) br2 08:29 Pain Scale: Adult ss ED Course: 04:23 Patient arrived in ED. jj6 04:25 Mil Baker MD is Attending Physician. rt 04:30 Patient has correct armband on for positive identification. Placed in gown. Bed in low ha1 position. Call light in reach. Side rails up X2. Adult w/ patient. 04:30 Provided Education on: PLAN OF CARE . Client placed on continuous cardiac and pulse ha1 oximetry monitoring. NIBP monitoring applied. school bus monitor on. 04:39 XRAY Chest (1 view) In Process Unspecified. EDMS 04:39 Triage completed. br2 04:39 Arm band placed on right wrist. br2 04:40 Lipase Sent. vc1 04:40 Basic Metabolic Panel Sent. vc1 04:40 CBC with Diff Sent. vc1 04:40 LFT's Sent. vc1 04:40 Troponin HS Sent. vc1 04:40 Oxygen administration via nasal cannula \T\ 2L/min. ha1 04:40 Inserted saline lock: 20 gauge in right forearm, using aseptic technique. Blood ha1 collected. Flushed with 10 mL NS. 04:45 Ariel Morfin DO is Private Physician. jj6 04:54 EKG done, by ED staff, reviewed by Mil Baker MD. sa1 06:10 Aurora Coleman, ANYA is Primary Nurse. ha1 06:28 Deana Scherer MD is Hospitalizing Provider. rt 06:32 First set of blood cultures drawn by me. sa1 06:47 Second set of blood cultures drawn by me. sa1 06:54 Blood Culture Adult (2) Sent. ha1 06:54 Lactate w/ 2H reflex if indic. Sent. ha1 06:54 Protime (+inr) Sent. ha1 06:54 Ptt, Activated Sent. ha1 08:29 No provider procedures requiring assistance completed. Patient admitted, IV remains in ss place. Administered Medications: 04:40 Drug: Ondansetron IVP 4 mg IVP once; over 2 minutes Route: IVP; Site: right forearm; ha1 05:00 Follow up: Response: No adverse reaction ha1 04:41 Drug: Aspirin PO 325 mg PO once Route: PO; ha1 05:00 Follow up: Response: No adverse reaction; Pain is decreased ha1 04:43 Drug: Nitroglycerin Sublingual 0.4 mg Sublingual once; every five minute if needed x3 ha1 Route: Sublingual; 05:00 Follow up: Response: No adverse reaction; Marked relief of symptoms; Pain is decreased ha1 05:45 Drug: Albuterol Inhalation 2.5 mg Inhalation once Route: Inhalation; ha1 06:03 Follow up: Response: No adverse reaction; Marked relief of symptoms ha1 05:45 Drug: Ipratropium Inhalation Aerosol 0.5 mg Inhalation once Route: Inhalation; ha1 06:02 Follow up: Response: No adverse reaction; Marked relief of symptoms ha1 06:54 Drug: LevaQUIN IVPB 750 mg IVPB once Route: IVPB; Site: right forearm; ha1 08:20 Follow up: Response: No adverse reaction; IV Status: Completed infusion mb9 Medication: 06:09 VIS not applicable for this client. ha1 Outcome: 06:29 Decision to Hospitalize by Provider. rt 08:29 Instructed on the need for admit, ss 09:14 Admitted to Tele accompanied by tech, via wheelchair, room 409, mb9 09:14 Condition: stable 09:15 Patient left the ED. mb9 Signatures: Dispatcher [employer] EDMS Mindy Burton RN RN Anna Kangj6 Zulema Ovalles RN RN vc1 Aurora Coleman RN RN ha1 Billie Sanchez RN RN mb9 Mil Baker MD MD rt Sultan Mandi sa1 Corinna Wood RN RN br2 Corrections: (The following items were deleted from the chart) 04:57 04:56 BP 175 / 85; Pulse 101bpm; Resp 19bpm; Spontaneous; Pulse Ox 98% 2 lpm Nasal ha1 Cannula; ha1 06:30 06:29 BP 169 / 74; Pulse 83bpm; Resp 17bpm; Spontaneous; Pulse Ox 99% 3 lpm Nasal ha1 Cannula; ha1
--- NOTE | 2024-12-26 06:29 | EDPHYS ---
Physician Documentation [facility] Name: Kevin Chou Age: 79 yrs Sex: Female : 1945 Arrival Date: 12/26/2024 Time: 04:19 Bed 7 Private MD: Ariel Morfin ED Physician Mil Baker HPI: 12/26 04:57 This 79 yrs old Black Female presents to ER via Wheelchair with complaints of Chest rt Pain, Nausea/Vomiting. 04:57 Patient presents to the ED with cough, difficulty breathing, chest pain starting rt tonight. Patient has known CAD, is a dialysis patient, went to dialysis last on Friday. Denies other acute complaints at this time, symptoms are moderate severity, no other aggravating alleviating factors.. Historical: - Allergies: 04:39 Aspirin; br2 04:39 Oxycodone HCl; br2 04:39 Percodan; br2 - PMHx: 04:39 diabetes mellitus; DIALYSIS MWF; Hypertension; kidney disease; br2 - PSHx: 04:39 Left arm fistula; br2 - Immunization history:: Adult Immunizations up to date. - Infectious Disease History:: Denies. - Social history:: Smoking status: Patient denies any tobacco usage or history of. Patient/guardian denies using alcohol, street drugs. - Family history:: not pertinent. ROS: 04:57 Constitutional: Negative for fever, chills, and weight loss, Abdomen/GI: Negative for rt abdominal pain, nausea, vomiting, diarrhea, and constipation, MS/Extremity: Negative for injury and deformity, Skin: Negative for injury, rash, and discoloration, Neuro: Negative for headache, weakness, numbness, tingling, and seizure, 04:57 Cardiovascular: Positive for chest pain, Negative for edema, 04:57 Respiratory: Positive for cough, shortness of breath, Exam: 04:57 Constitutional: This is a well developed, well nourished patient who is awake, alert, rt and in no acute distress. Head/Face: Normocephalic, atraumatic. Chest/axilla: Normal chest wall appearance and motion. Nontender with no deformity. No lesions are appreciated. Cardiovascular: Regular rate and rhythm with a normal S1 and S2. No gallops, murmurs, or rubs. Normal PMI, no JVD. No pulse deficits. Abdomen/GI: Soft, non-tender, with normal bowel sounds. No distension or tympany. No guarding or rebound. No evidence of tenderness throughout. Skin: Warm, dry with normal turgor. Normal color with no rashes, no lesions, and no evidence of cellulitis. MS/ Extremity: Pulses equal, no cyanosis. Neurovascular intact. Full, normal range of motion. Neuro: Awake and alert, GCS 15, oriented to person, place, time, and situation. Cranial nerves II-XII grossly intact. Motor strength 5/5 in all extremities. Sensory grossly intact. Cerebellar exam normal. Normal gait. 04:57 Respiratory: Bibasilar crackles, moderate respiratory distress, 04:58 ECG was reviewed by the Attending Physician. rt Vital Signs: 04:37 BP 184 / 91; Pulse 102; Resp 26; Pulse Ox 88% on R/A; Weight 61.69 kg; Height 4 ft. 11 br2 in. ; 04:56 BP 175 / 85; Pulse 101; Resp 22 S; Pulse Ox 98% on 2 lpm NC; ha1 05:59 BP 161 / 71; Pulse 84; Resp 22; Pulse Ox 100% ; vc1 06:29 BP 169 / 74; Pulse 83; Resp 19 S; Pulse Ox 99% on 3 lpm NC; ha1 07:36 BP 161 / 82; Pulse 83; Resp 16; Pulse Ox 100% on R/A; ss 08:29 BP 153 / 70; Pulse 82; Resp 19; Temp 98.4; Pulse Ox 100% on 2 lpm NC; Pain 0/10; ss 04:37 Body Mass Index 27.47 (61.69 kg, 149.86 cm) br2 08:29 Pain Scale: Adult ss MDM: 04:26 Medical Screening Exam initiated rt 06:26 Differential diagnosis: Pneumonia, bronchospasm, volume overload. Data reviewed: vital rt signs, nurses notes, lab test result(s), EKG, radiologic studies. Consideration of Admission/Observation Patient was admitted/placed on observation. Management of patient was discussed with the following: Hospitalist: Agrees to admit. I considered the following discharge prescriptions or medication management in the emergency department Medications were administered in the Emergency Department. See MAR. Independent interpretation of the following test(s) in the Emergency Department X-Ray: My interpretation is Bilateral infiltrates/edema seen on interpretation of x-ray images. Care significantly affected by the following chronic conditions: Chronic Kidney Disease. Counseling: I had a detailed discussion with the patient and/or guardian regarding the historical points, exam findings, and any diagnostic results supporting the discharge/admit diagnosis, lab results, radiology results, the need for further work-up and treatment in the hospital. Response to treatment: the patient's symptoms have markedly improved after treatment. 12/26 04:31 Order name: Basic Metabolic Panel; Complete Time: 05:30 rt 12/26 04:31 Order name: CBC with Diff; Complete Time: 05:17 rt 12/26 04:31 Order name: LFT's; Complete Time: 05:30 rt 12/26 04:31 Order name: Troponin HS; Complete Time: 05:30 rt 12/26 04:31 Order name: BNP; Complete Time: 05:30 rt 12/26 04:31 Order name: Lipase; Complete Time: 05:30 rt 12/26 06:04 Order name: Blood Culture Adult (2) rt 12/26 06:04 Order name: Lactate w/ 2H reflex if indic. rt 12/26 06:04 Order name: Protime (+inr) rt 12/26 06:04 Order name: Ptt, Activated rt 12/26 07:09 Order name: Ghost Lactate-NO COLLECT Timer EDMS 12/26 07:24 Order name: Basic Metabolic Panel EDMS 12/26 07:24 Order name: Basic Metabolic Panel EDMS 12/26 07:24 Order name: Basic Metabolic Panel EDMS 12/26 07:24 Order name: Basic Metabolic Panel EDMS 12/26 07:24 Order name: CBC with Automated Diff EDMS / 07:24 Order name: CBC with Automated Diff EDMS / 07:24 Order name: CBC with Automated Diff EDMS / 07:24 Order name: CBC with Automated Diff EDMS / 07:24 Order name: Troponin High Sensitivity EDMS / 07:24 Order name: Troponin High Sensitivity EDMS 12/26 07:24 Order name: Troponin High Sensitivity EDMS 12/26 04:31 Order name: XRAY Chest (1 view) rt 12/26 04:31 Order name: EKG; Complete Time: 04:31 rt 12/26 04:31 Order name: Cardiac monitoring; Complete Time: 04:57 rt 12/26 04:31 Order name: EKG - Nurse/Tech; Complete Time: 04:57 rt 12/26 04:31 Order name: IV Saline Lock; Complete Time: 04:40 rt 12/26 04:31 Order name: Labs collected and sent; Complete Time: 04:40 rt 12/26 04:31 Order name: O2 Per Protocol; Complete Time: 04:40 rt 12/26 04:31 Order name: O2 Sat Monitoring; Complete Time: 04:40 rt 12/26 06:04 Order name: Accucheck; Complete Time: 06:10 rt 12/26 06:04 Order name: IV Saline Lock - Large Bore; Complete Time: 06:10 rt 12/26 06:04 Order name: Vital Signs; Complete Time: 06:10 rt EC:58 Rate is 99 beats/min. Rhythm is regular, 1st Degree Block with No ectopy. QRS [place] is rt Normal. [place] interval is prolonged at 224 msec. QRS interval is normal. QT interval is normal. No Q waves. T waves are Normal. No ST changes noted. Interpreted by me. Administered Medications: 04:40 Drug: Ondansetron IVP 4 mg IVP once; over 2 minutes Route: IVP; Site: right forearm; ha1 05:00 Follow up: Response: No adverse reaction ha1 04:41 Drug: Aspirin PO 325 mg PO once Route: PO; ha1 05:00 Follow up: Response: No adverse reaction; Pain is decreased ha1 04:43 Drug: Nitroglycerin Sublingual 0.4 mg Sublingual once; every five minute if needed x3 ha1 Route: Sublingual; 05:00 Follow up: Response: No adverse reaction; Marked relief of symptoms; Pain is decreased ha1 05:45 Drug: Albuterol Inhalation 2.5 mg Inhalation once Route: Inhalation; ha1 06:03 Follow up: Response: No adverse reaction; Marked relief of symptoms ha1 05:45 Drug: Ipratropium Inhalation Aerosol 0.5 mg Inhalation once Route: Inhalation; ha1 06:02 Follow up: Response: No adverse reaction; Marked relief of symptoms ha1 06:54 Drug: LevaQUIN IVPB 750 mg IVPB once Route: IVPB; Site: right forearm; ha1 08:20 Follow up: Response: No adverse reaction; IV Status: Completed infusion mb9 Disposition: 06:26 Critical Care:. rt Disposition Summary: 12/26/24 06:29 Hospitalization Ordered Notes: Hospitalization Status: Inpatient Admission rt Provider: Deana Scherer rt [facility] rt Condition: Fair rt Problem: new rt Symptoms: have improved rt Bed/Room Type: Standard rt Room Assignment: 409(12/26/24 08:26) em1 Diagnosis - Volume overload rt - Multifocal pneumonia rt - Sepsis rt Forms: - Medication Reconciliation Form rt - SBAR form rt - Leadership Thank You Letter rt Critical care time excluding procedures: : Critical care time: Bedside Care: 30 minutes, Consultation: 5 minutes. Total time: 35 rt minutes Signatures: Dispatcher [employer] Thomas Paiz em1 Aurora Coleman RN RN ha1 Mil Baker MD MD rt Corinna Wood RN RN br2 Billie Sanchez RN mb9 Corrections: (The following items were deleted from the chart) 08:20 06:29 rt em1 08:26 08:20 403 em1 em1
[2024-12-26 06:57] LABS: PT Prothrombin Time 12.6 SECONDS (10-13.0); PTT, Activated Partial Thromb 31.5 SECONDS (27.2-37.4); Protime INR 1.11
--- NOTE | 2024-12-26 10:06 | P.HP ---
Certification for Inpatient Patient admitted to: Inpatient With expected LOS: >2 Midnights Patient will require the following post-hospital care: None Practitioner: I am a practitioner with admitting privileges, knowledge of patient current condition, hospital course, and medical plan of care. Services: Services provided to patient in accordance with Admission requirements found in Title 42 Section 412.3 of the Code of Federal Regulations <Asif Trotter - Last Filed: 12/26/24 10:03> Patient History Date of Service: 12/26/24 Reason for admission: Acute hypoxic respiratory failure History of Present Illness: 79-year-old female with history of ESRD on HD MWF, diet-controlled diabetes, hypertension, CAD presents the emergency department chief complaint of shortness of breath. She states she has been feeling progressively short of breath since Friday evening after dialysis, has new oxygen requirement here in the emergency department. Patient was evaluated in the emergency department her labs are significant for a white blood cell count of 9.8 bicarb of 20 creatinine 9.61 potassium 4.4 lactic acid 2.1 BNP 24,921 chest x-ray was performed which revealed extensive patchy interstitial near base opacities in both lungs more so on the right could represent pulmonary edema and/or multifocal pneumonia. Probable small bilateral pleural effusions. Patient denies fevers, chills or other infectious symptoms, does report a productive cough with clear sputum this morning. She was given IV antibiotics in the Emergency Department, ED provider wishes to admit for further evaluation and management. Nephrology notified of patient's admission by de - Past Medical/Surgical History Diabetic: No -: ESRD (Dr. Dunbar/ Dr. Zarate)/ LF AVF MWF -: HTN -: Diastolic CHF -: Arthritis -: HLD -: Gout -: CAD -: hysterectomy -: lumpectomy -: cataract surgery Psychosocial/ Personal History: Patient lives at home and is . - Family History Mother -: Hypertension, Kidney disease Father -: Hypertension, Kidney disease - Social History Alcohol use: No CD- Drugs: No Caffeine use: Yes Place of Residence: Home <Asif Trotter - Last Filed: 12/26/24 10:03> Date of Service: 12/26/24 <Deana Scherer - Last Filed: 12/28/24 08:17> Allergies aspirin [From Percodan] Adverse Reaction (Verified 09/30/24 01:51) hallucination oxycodone [From Percodan] Adverse Reaction (Verified 09/30/24 01:51) hallucination Home Medications: Carvedilol [Coreg] 12.5 mg PO BID #180 tab 07/27/24 Sacubitril/Valsartan [Entresto 24 mg-26 mg Tablet] 1 tab PO BID #90 tab 07/27/24 Famotidine [Pepcid*] 40 mg PO BEDTIME 09/30/24 Aspirin [Aspirin EC 81 MG] 81 mg PO DAILY #1 bottle 10/06/24 Atorvastatin Calcium 40 mg PO DAILY #90 tab 10/06/24 Clopidogrel Bisulfate [Plavix*] 75 mg PO DAILY 30 Days #30 tab 11/10/24 Review of Systems 10-point ROS is otherwise unremarkable Respiratory: Cough, Shortness of Breath Cardiovascular: Chest Pain <Asif Trotter - Last Filed: 12/26/24 10:03> Physical Examination - Vital Signs Temperature: 98.4 F Blood Pressure: 153/70 Pulse: 82 Respirations: 19 - Physical Exam General: Alert, In no apparent distress, Oriented x3 HEENT: Atraumatic, PERRLA, EOMI Neck: Supple, 2+ carotid pulse no bruit, No LAD Respiratory: Clear to auscultation bilaterally, Normal air movement Cardiovascular: Regular rate/rhythm, Normal S1 S2 Gastrointestinal: Normal bowel sounds, No tenderness Musculoskeletal: No tenderness Integumentary: No rashes Neurological: Normal speech, Normal strength at 5/5 x4 extr, Normal affect - Studies Laboratory Data (last 24 hrs) 12/26/24 12/26/24 12/26/24 06:32 04:40 04:40 WBC 9.80 Hgb 12.0 Hct 35.9 L Plt Count 188 PT 12.6 INR 1.11 APTT 31.5 Sodium 137 Potassium 4.4 BUN 68 H Creatinine 9.61 H Glucose 156 H Total Bilirubin 0.5 AST 14 L ALT 16 Alkaline Phosphatase 67 Lipase 72 <Asif Trotter - Last Filed: 12/26/24 10:03> Assessment and Plan - Plan Assessment: Acute hypoxic respiratory failure ESRD on HD MWF with suspected hypervolemia/pulmonary edema versus multifocal pneumonia History of CAD with recent stent/cath Diabetes mellitus type 9tey-wjvuxgl-piafcimch/diet-controlled Hypertension Plan: Acute hypoxic respiratory failure ESRD on HD MWF with suspected hypervolemia/pulmonary edema versus multifocal pneumonia Nephrology consulted for volume management with dialysis Does not make urine Covered empirically with oral levofloxacin for possible pneumonia Monitor CBC/fever trend Continue home medications when verified History of CAD with recent stent/cath Had stent to the LAD in September Repeat cath since then shows no complications with stent Continue aspirin, Plavix, other home medications Diabetes mellitus type 3xig-cgqjiqq-ajdrzmgsm/diet-controlled Renal/carb consistent diet If blood sugars are persistently elevated will add sliding scale insulin Hypertension Continue home medications when verified DVT PPX: Heparin subcu Code status: Full code Discharge Plan: Home Plan to discharge in: 48 Hours - Advance Directives Does patient have a Living Will: No Does patient have a Durable POA for Healthcare: No - Code Status/Comfort Care Code Status Assessed: Yes (Full code) Critical Care: No Time Spent Managing Pts Care (In Minutes): 65 <Asif Trotter - Last Filed: 12/26/24 10:03> Date of Service: 12/26/24 Chart has been reviewed. Events of the last 24 hours have been noted. Case discussed with OMAR. I performed a substantial part of the MDM during this patient's care today. I personally made or approved the documented management plan and acknowledge its risk of complications. I agree with the findings and documentation provided in the OMAR's notes Patient will need to be hemodialyzed. Patient has not missed any of her hemodialysis I will not really sure why she is retaining fluid. Continue with dialyzing patient per nephrology recommendation. Further workup regarding volume status with echocardiogram <Deana Scherer - Last Filed: 12/28/24 08:17>
[2024-12-26] MEDS: carvediloL 12.5 MG TAB PO SCH (10:46)
[2024-12-26] MEDS: HEPARIN 5000 UNIT/ML 1 ML VIAL SQ SCH (10:47)
[2024-12-26] MEDS: CLOPIDOGREL 75 MG TABLET PO SCH (10:47)
[2024-12-26] MEDS: ASPIRIN EC 81 MG TAB PO SCH (10:47)
[2024-12-26] MEDS: ATORVASTATIN 40 MG TAB PO SCH (10:47)
[2024-12-26] MEDS: FAMOTIDINE 20 MG TAB PO SCH (10:47)
[2024-12-26 10:53] VITALS: BMI 27.4
[2024-12-26] MEDS: PNEUMOCOCCAL VACCINE 0.5 ML IMVAC ONE (12:00)
--- NOTE | 2024-12-26 13:13 | P.CNS ---
Date of Consult: 12/26/24 Reason for Consult: ESRD, dyspnea, chronic pulm edema, accelerated HTN Requesting Physician: Asif Trotter Chief Complaint: Acute hypoxic respiratory failure History of Present Illness: Pt is an elderly AA female with past medical history of ESRD on dialysis MWF via Lt AVF for several years, last OP HD on Fri, chronic malignant hypertension, chronic diastolic CHF, CAD status post recent PCI/MEE to LAD in , recent hospitalizations for shortness of breath, chest pain, other with recurrent admission with NSTEMI last mo and underwent repeat LHC and re-assessment of stent. Pt completed HD on Fri without issues and has been leaving near lowered EDW but BP remains mod elevated. Pt came in with worsened, acute dyspnea. Pt denies CP, no resp distress noted, on LFNC, seen sitting in chair, eating lunch. Allergies aspirin [From Percodan] Adverse Reaction (Verified 09/30/24 01:51) hallucination oxycodone [From Percodan] Adverse Reaction (Verified 09/30/24 01:51) hallucination Home Medications: Carvedilol [Coreg] 12.5 mg PO BID #180 tab 07/27/24 Sacubitril/Valsartan [Entresto 24 mg-26 mg Tablet] 1 tab PO BID #90 tab 07/27/24 Albuterol Inhaler [Ventolin Inhaler*] 2 puff IH Q4HP PRN 09/30/24 Famotidine [Pepcid*] 20 mg PO DAILY 09/30/24 Aspirin [Aspirin EC 81 MG] 81 mg PO DAILY #1 bottle 10/06/24 Atorvastatin Calcium 40 mg PO DAILY #90 tab 10/06/24 Clopidogrel Bisulfate [Plavix*] 75 mg PO DAILY 30 Days #30 tab 11/10/24 - Past Medical/Surgical History Diabetic: No -: ESRD (Dr. Dunbar/ Dr. Zarate)/ LF AVF MWF -: HTN -: Diastolic CHF -: Arthritis -: HLD -: Gout -: CAD -: hysterectomy -: lumpectomy -: cataract surgery Psychosocial/ Personal History: Patient lives at home and is . - Family History Mother Medical History: Hypertension, Kidney disease Father Medical History: Hypertension, Kidney disease - Social History Smoking Status: Unknown if ever smoked Alcohol use: No CD- Drugs: No Caffeine use: Yes Place of Residence: Home Review of Systems General: Unremarkable Eyes: Unremarkable ENT: Unremarkable Respiratory: Shortness of Breath Cardiovascular: As per HPI Gastrointestinal: Unremarkable Genitourinary: Unremarkable Musculoskeletal: Unremarkable Integumentary: Unremarkable Neurological: Unremarkable Physical Examination Temp Pulse Resp BP Pulse Ox 98.4 F 82 19 153/70 H 12/26/24 10:05 12/26/24 10:46 12/26/24 10:05 12/26/24 10:46 General: In no apparent distress, Cooperative HEENT: Atraumatic, Normocephalic, Other (LFNC) Neck: Supple Respiratory: Normal air movement, Other (non tachypnec, scattered rales) Cardiovascular: No edema, Regular rate/rhythm, Systolic murmur Gastrointestinal: Soft and benign, Non-distended, No tenderness Musculoskeletal: No swelling, No contractures Integumentary: No rashes, No warmth Neurological: Normal speech, Normal tone, Normal affect Laboratory Data (last 24 hrs) 12/26/24 12/26/24 12/26/24 06:32 04:40 04:40 WBC 9.80 Hgb 12.0 Hct 35.9 L Plt Count 188 PT 12.6 INR 1.11 APTT 31.5 Sodium 137 Potassium 4.4 BUN 68 H Creatinine 9.61 H Glucose 156 H Total Bilirubin 0.5 AST 14 L ALT 16 Alkaline Phosphatase 67 Lipase 72 Conclusions/Impression: 1. End-stage renal disease, on dialysis MWF as an OP, HD performed Fri, no urgent indication to repeat today. Next HD tmrw, but will plan for extra treatment during admission, likely Tu 2. Ischemic heart disease, chronic, s/p LHC with PCI/MEE, complex procedure back in Sep with some septal branch involvement. Cont DAPT, optimize BP control 3. Chronic HTN with heart and kidney disease -remains mod elevated, titrate Coreg and Entresto doses, will ask her not to hold doses on AM of HD days, target < 130/80 4. Chronic diastolic CHF, chronic pulm edema -cont to establish/maintain EDW 5. Anemia 2nd to CKD -Hb currently > 10 Abbe Zarate MD, ANGELINA
[2024-12-26] MEDS: SACUBITRIL/VALSARTAN 49/51 MG TAB PO SCH (15:00)
[2024-12-26] MEDS: carvediloL 25 MG TAB PO SCH (20:53)
[2024-12-26] MEDS ORDERED: MAGNES/ALUMIN/SIMET 30ML UCUP PO PRN (21:02)
[2024-12-26] MEDS: PANTOPRAZOLE 40MG TABLET PO ONE (22:14)
[2024-12-26] MEDS: ALBUTEROL 2.5 MG/3 ML NEB SOL NEB PRN (23:22)
[2024-12-27] MEDS: KETOROLAC 30 MG/ML INJ IV ONE (00:46)
[2024-12-27] MEDS: HYDROMORPHONE HCL 0.5 MG/0.5 ML INJ IV ONE (01:21)
[2024-12-27 04:36] LABS: Absolute Basophils 0.1 K/uL (0-0.5); Absolute Eosinophils 0.1 K/uL (0-0.5); Absolute Monocytes 0.9 K/uL (0.1-1.3); Absolute Neutrophil 4.8 K/uL (1.8-8.0); Basophils % 0.7 % (0-1.3); Eosinophils % 1.5 % (0-4.4); Hematocrit 31.5 % (36.0-45.0); Hemoglobin 10.5 g/dL (12.0-15.0); Lymphocytes % 25.1 % (15.3-44.8); MCH 30.3 pg (27.0-35.0); MCHC 33.5 g/dL (32.0-36.0); MCV 90.3 fL (80-100); MPV 9.2 fL (7.6-11.3); Monocytes % 11.3 % (3.3-12.3); Neutrophils % 61.4 % (41.7-73.7); Nucleated Red Blood Cells % 0.1 % (0-0); Platelets 170 thou/uL (152-406); RBC Red Blood Cell Count 3.48 M/uL (3.86-4.86); Red Cell Distribution Width 18.9 % (12.1-15.2)
[2024-12-27 05:00] LABS: Anion Gap 17.5 mEq/L (5.0-15.0); Potassium 5.5 mEq/L (3.5-5.1)
[2024-12-27] MEDS ORDERED: MORPHINE 2 MG/ML SYR IV PRN (06:39)
[2024-12-27] MEDS: levoFLOXacin 250 MG TAB PO SCH (08:22)
--- NOTE | 2024-12-27 09:08 | P.PN ---
Date of Service: 12/27/24 Subjective: No acute events overnight Reportedly had some confusion after receiving IV Dilaudid Still with some dyspnea, discomfort ROS: 10 point ROS as noted above, otherwise negative Physical exam GEN: Alert, oriented x 2, NAD HEENT: Normal conjunctiva, sclera anicteric CV: Regular rate and rhythm, no edema Pulm: Nonlabored respirations on nasal cannula ABD: Soft, nontender, nondistended MSK: No joint tenderness Integumentary: No rashes Neuro: Normal speech, normal affect Vitals reviewed Assessment: Acute hypoxic respiratory failure ESRD on HD MWF with suspected hypervolemia/pulmonary edema versus multifocal pneumonia History of CAD with recent stent/cath Diabetes mellitus type 5yme-mwartbq-zuuezayiw/diet-controlled Hypertension Plan: Acute hypoxic respiratory failure ESRD on HD MWF with suspected hypervolemia/pulmonary edema versus multifocal pneumonia Nephrology consulted for volume management with dialysis Nephrology plans for HD inpatient today and tomorrow, possible discharge on Friday with outpatient dialysis on Friday Does not make urine Covered empirically with oral levofloxacin for possible pneumonia Monitor CBC/fever trend Continue home medications when verified History of CAD with recent stent/cath Had stent to the LAD in September Repeat cath since then shows no complications with stent Continue aspirin, Plavix, other home medications Repeat troponin in the morning If persistently elevated consider cardiology consult Diabetes mellitus type 8ued-ngozlgm-ntboclboz/diet-controlled Renal/carb consistent diet If blood sugars are persistently elevated will add sliding scale insulin Hypertension Continue home medications when verified DVT PPX: Heparin subcu Code status: Full code Discharge Plan: Home Plan to discharge in: 48 Hours Time 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 <Asif Trotter - Last Filed: 12/27/24 09:08> Chart has been reviewed. Events of the last 24 hours have been noted. Case discussed with [facility]. I performed a substantial part of the MDM during this patient's care today. I personally made or approved the documented management plan and acknowledge its risk of complications. I agree with the findings and documentation provided in the OMAR's notes Nephrology to start hemodialysis today. They want to dialyze again in the morning. If patient's volume status is improved and possible discharge after that. Continue with current plan of care at this time. <Deana Scherer - Last Filed: 12/28/24 08:18>
--- NOTE | 2024-12-27 12:07 | EKG ---
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
[2024-12-27] MEDS: ACETAMINOPHEN 325 MG TABLET PO PRN (20:17)
--- NOTE | 2024-12-27 21:14 | P.PN ---
Date of Service: 12/27/24 Vital Signs Temp Pulse Resp BP Pulse Ox 98.1 F 92 H 18 165/73 H 91 12/27/24 16:00 12/27/24 20:12 12/27/24 16:00 12/27/24 20:12 12/27/24 16:00 Medications Acetaminophen (Acetaminophen 325 Mg Tablet) 650 mg PO Q4HP PRN PRN Reason: Pain scale 2-4 (Mild) Last Admin: 12/27/24 20:17 Dose: 650 mg Al Hydrox/Mg Hydrox/Simethicone (Magnes/Alumin/Simet 30ml Ucup) 30 ml PO Q6H PRN PRN Reason: INDIGESTION Albuterol Sulfate (Albuterol 2.5 Mg/3 Ml Neb Irene) 2.5 mg NEB [id number] PRN PRN Reason: SHORTNESS OF BREATH Last Admin: 12/26/24 23:22 Dose: 2.5 mg Aspirin (Aspirin Ec 81 Mg Tab) 81 mg PO DAILY [facility] Last Admin: 12/27/24 08:22 Dose: 81 mg Atorvastatin Calcium (Atorvastatin 40 Mg Tab) 40 mg PO DAILY [facility] Last Admin: 12/27/24 08:22 Dose: 40 mg Carvedilol (Carvedilol 25 Mg Tab) 25 mg PO BID [facility] Last Admin: 12/27/24 20:12 Dose: 25 mg Clopidogrel Bisulfate (Clopidogrel 75 Mg Tablet) 75 mg PO DAILY [facility] Last Admin: 12/27/24 08:22 Dose: 75 mg Famotidine (Famotidine 20 Mg Tab) 20 mg PO DAILY [facility]; Protocol Last Admin: 12/27/24 08:22 Dose: 20 mg Heparin Sodium (Porcine) (Heparin 5000 Unit/Ml 1 Ml Vial) 5,000 unit SQ Q12HR [facility] Last Admin: 12/27/24 20:12 Dose: 5,000 unit Heparin Sodium (Porcine) (Heparin 1,000 Unit/Ml Vial) 2,000 unit IV EVERY HD PRN PRN Reason: Prevent HD System Clotting Last Admin: 12/27/24 11:12 Dose: 2,000 unit Levofloxacin (Levofloxacin 250 Mg Tab) 250 mg PO DAILY [facility]; Protocol Last Admin: 12/27/24 08:22 Dose: 250 mg Morphine Sulfate (Morphine 2 Mg/Ml Syr) 2 mg IV Q4H PRN PRN Reason: Pain scale 8-10 (Severe) Microbiology Results 05/04/25 06:47 Blood - Blood Aerobic Blood Culture - Preliminary No growth in 24 hours. 12/26/24 06:47 Blood - Blood Anaerobic Blood Culture - Preliminary No growth in 24 hours. 12/26/24 06:32 Blood - Blood Aerobic Blood Culture - Preliminary No growth in 24 hours. 12/26/24 06:32 Blood - Blood Anaerobic Blood Culture - Preliminary No growth in 24 hours. Assessment/ Plan: Nephrology No dyspnea No chest pain Dyspnea worse off oxygen No acute events overnight Vitals, medications, blood work and imaging reviewed in the chart NAD. MMM. NCAT. Normal Respiratory Effort. S1S2. ND Abd. No C/C/E. No rash. AAO. Normal speech. ESRD -HD TIW MWF -Acute HD as ordered Hyponatremia Hyperkalemia -HD TIW HTN with CKD/ CHF -Continue Coreg -Continue Entresto Diastolic CHF, A/C Ischemic CMP Hypoxic Respiratory Failure, A/C -HD with UF -Continue Oxygen supplementation DM II with CKD -RISS prn Anemia in CKD -Retacrit prn CKD MBD Secondary HyperParathyroidism -Start Calcitriol Case reviewed with the hospitalist team
[2024-12-28 05:55] LABS: Absolute Eosinophils 0.2 K/uL (0-0.5); Absolute Monocytes 1.1 K/uL (0.1-1.3); Absolute Neutrophil 4.2 K/uL (1.8-8.0); Basophils % 0.6 % (0-1.3); Eosinophils % 2.5 % (0-4.4); Hemoglobin 10.6 g/dL (12.0-15.0); MCH 30.9 pg (27.0-35.0); MCHC 34.1 g/dL (32.0-36.0); MCV 90.7 fL (80-100); MPV 9.3 fL (7.6-11.3); Monocytes % 14.4 % (3.3-12.3); Neutrophils % 55.5 % (41.7-73.7); Nucleated Red Blood Cells % 0.1 % (0-0); Platelets 140 thou/uL (152-406); RBC Red Blood Cell Count 3.41 M/uL (3.86-4.86); Red Cell Distribution Width 18.3 % (12.1-15.2)
[2024-12-28 06:28] LABS: Albumin 2.7 g/dL (3.4-5.0); Albumin/Globulin Ratio 0.7 (1.1-1.8); Alkaline Phosphatase 54 U/L (45-117); Anion Gap 11.2 mEq/L (5.0-15.0); BUN Blood Urea Nitrogen 41 mg/dL (7-18); Bicarbonate 28 mEq/L (21-32); Bilirubin Total 0.5 mg/dL (0.2-1.0); Globulin 3.9 g/dL (2.3-3.5); Glomerular Filtration Rate 5 ml/min (=/>90); Glucose Level 114 mg/dL (74-106); Magnesium 1.7 mg/dL (1.6-2.4); Phosphorus 5.7 mg/dL (2.5-4.9); Potassium 4.2 mEq/L (3.5-5.1); Protein, Total 6.6 g/dL (6.4-8.2); Sodium Level 136 mEq/L (136-145)
[2024-12-28 06:29] LABS: ALT/SGPT < 14 U/L (13-56); AST/SGOT < 10 U/L (15-37); Troponin High Sensitivity 67.5 pg/mL (<58.9)
[2024-12-28] MEDS: DOCUSATE NA 100 MG CAP PO SCH (08:56)
[2024-12-28] MEDS: CALCITROL 0.25 MCG CAP PO SCH (08:56)
[2024-12-28 16:04] VITALS: O2SAT 98
--- NOTE | 2024-12-28 16:38 | P.DS ---
Admission Date: 12/26/24 Discharge Date: 12/28/24 Reason for Admission: Acute hypoxic respiratory failure Brief History of Present Illness: Diagnosis Acute hypoxic respiratory failure ESRD on HD MWF with suspected hypervolemia/pulmonary edema versus multifocal pneumonia History of CAD with recent stent/cath Diabetes mellitus type 1krg-xemhbyo-quruurpyd/diet-controlled Hypertension HPI 12/26/24 79-year-old female with history of ESRD on HD MWF, diet-controlled diabetes, hypertension, CAD presents the emergency department chief complaint of shortness of breath. She states she has been feeling progressively short of breath since Friday evening after dialysis, has new oxygen requirement here in the emergency department. Patient was evaluated in the emergency department her labs are significant for a white blood cell count of 9.8 bicarb of 20 creatinine 9.61 potassium 4.4 lactic acid 2.1 BNP 24,921 chest x-ray was performed which revealed extensive patchy interstitial near base opacities in both lungs more so on the right could represent pulmonary edema and/or multifocal pneumonia. Probable small bilateral pleural effusions. Patient denies fevers, chills or other infectious symptoms, does report a productive cough with clear sputum this morning. She was given IV antibiotics in the Emergency Department, ED provider wishes to admit for further evaluation and management. Nephrology notified of patient's admission by pr Hospital Course: Acute hypoxic respiratory failure ESRD on HD MWF with suspected hypervolemia/pulmonary edema versus multifocal pneumonia Nephrology consulted for volume management with dialysis Nephrology plans for HD inpatient today and tomorrow, possible discharge on Friday with outpatient dialysis on Friday Does not make urine Covered empirically with oral levofloxacin for possible pneumonia Monitor CBC/fever trend Continue home medications when verified History of CAD with recent stent/cath Had stent to the LAD in September Repeat cath since then shows no complications with stent Continue aspirin, Plavix, other home medications Repeat troponin in the morning If persistently elevated consider cardiology consult Diabetes mellitus type 1uth-vmydfxg-gqhyukjwe/diet-controlled Renal/carb consistent diet If blood sugars are persistently elevated will add sliding scale insulin Hypertension Continued home medications when verified On 12/28/24, Kevin was seen on morning rounds hemodynamically stable, on 3 LNC and reported feeling winded. Dialysis today and she is now on room air. Dr. Dunbar has evaluated and cleared for discharge. Physical exam GEN: AAOx 2, NAD HEENT: Normal conjunctiva, sclera anicteric CV: RRR, S1 S2 presebt, no edema Pulm: Nonlabored respirations on nasal cannula ABD: Soft and nontender on palpation, normal active bowel sounds MSK: No joint tenderness Integumentary: No rashes Neuro: Normal speech, normal affect <GiovanniFozia - Last Filed: 12/28/24 16:21> Admission Date: 12/26/24 Discharge Date: 12/28/24 <CraigJosh - Last Filed: 12/28/24 17:42> Discharge Condition: CRITICAL Vital Signs/Physical Exam: Temp Pulse Resp BP Pulse Ox 97.7 F 76 18 105/54 L 100 12/28/24 12:00 12/28/24 12:00 12/28/24 12:00 12/28/24 12:00 12/28/24 12:00 Laboratory Data at Discharge: WBC 7.50 thou/uL (4.3-10.9) 12/28/24 05:41 Hgb 10.6 g/dL (12.0-15.0) L 12/28/24 05:41 Hct 31.0 % (36.0-45.0) L 12/28/24 05:41 Plt Count 140 thou/uL (152-406) L 12/28/24 05:41 PT 12.6 SECONDS (10-13.0) 12/26/24 06:32 INR 1.11 12/26/24 06:32 APTT 31.5 SECONDS (27.2-37.4) 12/26/24 06:32 Sodium 136 mEq/L (136-145) 12/28/24 05:41 Potassium 4.2 mEq/L (3.5-5.1) D 12/28/24 05:41 BUN 41 mg/dL (7-18) H 12/28/24 05:41 Creatinine 7.64 mg/dL (0.55-1.02) H 12/28/24 05:41 Glucose 114 mg/dL (74-106) H 12/28/24 05:41 Phosphorus 5.7 mg/dL (2.5-4.9) H 12/28/24 05:41 Magnesium 1.7 mg/dL (1.6-2.4) 12/28/24 05:41 Total Bilirubin 0.5 mg/dL (0.2-1.0) 12/28/24 05:41 AST < 10 U/L (15-37) L 12/28/24 05:41 ALT < 14 U/L (13-56) 12/28/24 05:41 Alkaline Phosphatase 54 U/L (45-117) 12/28/24 05:41 Lipase 72 U/L (13-75) 12/26/24 04:40 <Fozia Davila - Last Filed: 12/28/24 16:21> Vital Signs/Physical Exam: Temp Pulse Resp BP Pulse Ox 97.5 F 74 18 132/54 L 93 12/28/24 16:00 12/28/24 16:00 12/28/24 16:00 12/28/24 16:00 12/28/24 16:00 Laboratory Data at Discharge: WBC 7.50 thou/uL (4.3-10.9) 12/28/24 05:41 Hgb 10.6 g/dL (12.0-15.0) L 12/28/24 05:41 Hct 31.0 % (36.0-45.0) L 12/28/24 05:41 Plt Count 140 thou/uL (152-406) L 12/28/24 05:41 PT 12.6 SECONDS (10-13.0) 12/26/24 06:32 INR 1.11 12/26/24 06:32 APTT 31.5 SECONDS (27.2-37.4) 12/26/24 06:32 Sodium 136 mEq/L (136-145) 12/28/24 05:41 Potassium 4.2 mEq/L (3.5-5.1) D 12/28/24 05:41 BUN 41 mg/dL (7-18) H 12/28/24 05:41 Creatinine 7.64 mg/dL (0.55-1.02) H 12/28/24 05:41 Glucose 114 mg/dL (74-106) H 12/28/24 05:41 Phosphorus 5.7 mg/dL (2.5-4.9) H 12/28/24 05:41 Magnesium 1.7 mg/dL (1.6-2.4) 12/28/24 05:41 Total Bilirubin 0.5 mg/dL (0.2-1.0) 12/28/24 05:41 AST < 10 U/L (15-37) L 12/28/24 05:41 ALT < 14 U/L (13-56) 12/28/24 05:41 Alkaline Phosphatase 54 U/L (45-117) 12/28/24 05:41 Lipase 72 U/L (13-75) 12/26/24 04:40 <Josh Srinivasan - Last Filed: 12/28/24 17:42> <Fozia Davila - Last Filed: 12/28/24 16:21> Physician Review: Patient Assessed, Agree with Above Assessment and Plan <Josh Srinivasan - Last Filed: 12/28/24 17:42> Home Medications: Carvedilol [Coreg] 12.5 mg PO BID #180 tab 07/27/24 Sacubitril/Valsartan [Entresto 24 mg-26 mg Tablet] 1 tab PO BID #90 tab 07/27/24 Famotidine [Pepcid*] 40 mg PO BEDTIME 09/30/24 Aspirin [Aspirin EC 81 MG] 81 mg PO DAILY #1 bottle 10/06/24 Atorvastatin Calcium 40 mg PO DAILY #90 tab 10/06/24 Clopidogrel Bisulfate [Plavix*] 75 mg PO DAILY 30 Days #30 tab 11/10/24 Calcitrol [Rocaltrol*] 0.5 mcg PO DAILY 30 Days #30 cap 12/28/24 Levofloxacin [Levaquin] 250 mg PO DAILY 7 Days #7 tab 12/28/24 Sacubitril/Valsartan [Entresto 49 mg-51 mg Tablet] 2 tab PO BID 30 Days #120 tab 12/28/24 New Medications: Levofloxacin [Levaquin] 250 mg PO DAILY 7 Days #7 tab Calcitrol [Rocaltrol*] 0.5 mcg PO DAILY 30 Days #30 cap Physician Discharge Instructions: 1. Please call and schedule a follow-up appointment with your PCP in 3-5 days - Please follow-up with your PCP for medication refills/adjustments 2. Please call and schedule a follow-up appointment with Dr. Dunbar in one week -Continue dialysis as scheduled 3. Continue renal low potassium diet 4. activity restrictions fall precautions 5. Return to the ED if symptoms worsen New medications Calcitriol 0.5 mcg daily x 30 days Levaquin 250 mg daily x 7 days Followup: Pierre Dunbar DO [ACTIVE - CAN ADMIT] - Ariel Morfin DO [Primary Care Provider] -
[2024-12-28 16:44] VITALS: BP 132/54; TEMP 97.5
--- NOTE | 2024-12-28 19:12 | P.PN ---
Date of Service: 12/28/24 Vital Signs Temp Pulse Resp BP Pulse Ox 97.5 F 74 18 132/54 L 93 12/28/24 16:00 12/28/24 16:00 12/28/24 16:00 12/28/24 16:00 12/28/24 16:00 Microbiology Results 12/26/24 06:47 Blood - Blood Aerobic Blood Culture - Preliminary No growth in 24 hours. 12/26/24 06:47 Blood - Blood Anaerobic Blood Culture - Preliminary No growth in 24 hours. 12/26/24 06:32 Blood - Blood Aerobic Blood Culture - Preliminary No growth in 24 hours. 12/26/24 06:32 Blood - Blood Anaerobic Blood Culture - Preliminary No growth in 24 hours. Assessment/ Plan: Nephrology No dyspnea No chest pain Feeling better this morning No acute events overnight Vitals, medications, blood work and imaging reviewed in the chart NAD. MMM. NCAT. Normal Respiratory Effort. S1S2. ND Abd. No C/C/E. No rash. AAO. Normal speech. ESRD -HD TIW MWF -Acute HD today Hyponatremia Hyperkalemia -HD TIW HTN with CKD/ CHF -Continue Coreg -Continue Entresto Diastolic CHF, A/C Ischemic CMP Hypoxic Respiratory Failure, A/C -HD with UF -Continue Oxygen supplementation DM II with CKD -RISS prn Anemia in CKD -Retacrit prn CKD MBD Secondary HyperParathyroidism -Continue Calcitriol Case reviewed with the hospitalist team
== END 2024-12-28 17:54 | disposition home or self-care (01) | DRG 193 ==
LOC: ER 04:19 → ERHOLD 07:19 → 4TH 08:55
PROVIDERS: ADMIT Hospitalist; ATTEND Family Medicine
PROC: 5A1D70Z Performance of Urinary Filtration, Intermittent, Less than 6 Hours Per Day (ICD-10-PCS; principal; 2024-12-27)
DX: J18.9 Pneumonia, unspecified organism (principal); I50.33 Acute on chronic diastolic (congestive) heart failure; N18.6 End stage renal disease; J96.21 Acute and chronic respiratory failure with hypoxia; I13.2 Hypertensive heart and chronic kidney disease with heart failure and with stage 5 chronic kidney disease, or end stage renal disease; E87.1 Hypo-osmolality and hyponatremia; N25.81 Secondary hyperparathyroidism of renal origin; E11.22 Type 2 diabetes mellitus with diabetic chronic kidney disease; D63.1 Anemia in chronic kidney disease; M10.9 Gout, unspecified; E87.5 Hyperkalemia; E78.5 Hyperlipidemia, unspecified; I25.5 Ischemic cardiomyopathy; I25.10 Atherosclerotic heart disease of native coronary artery without angina pectoris; Z99.2 Dependence on renal dialysis; Z88.6 Allergy status to analgesic agent; Z95.1 Presence of aortocoronary bypass graft; Z95.5 Presence of coronary angioplasty implant and graft; Z88.8 Allergy status to other drugs, medicaments and biological substances; Z79.82 Long term (current) use of aspirin; Z79.02 Long term (current) use of antithrombotics/antiplatelets; Z79.899 Other long term (current) drug therapy; Z90.710 Acquired absence of both cervix and uterus
CPT/HCPCS: 36415; 71045; 80048; 80053; 80076; 82140; 82947; 83605; 83690; 83735; 83880; 84100; 84484; 85025; 85610; 85730; 87040; 90935; 93005; 94640; 96365; 96375; 99285; J1171; J1644; J2405; J7613; J7644